=== PATIENT | female | born 1940 | race Caucasian/White ===

== ENCOUNTER 2020-01-09 08:28 | Inpatient (IN) | payer MEDICARE ==
[2020-01-09] MEDS ORDERED: ACETAMINOPHEN TAB 325 MG TAB PO STA (09:07)
--- NOTE | 2020-01-09 09:14 | ED ---
SOB HPI - General Chief Complaint: Shortness of Breath Stated Complaint: SOB, +COVID Time Seen by Provider: 01/09/20 08:44 Source: patient Mode of arrival: wheelchair Limitations: no limitations - History of Present Illness Initial Comments: 79-year-old male presenting today for chief complaint of code positive. On history taking patient appears fatigued she is alert and oriented 4 however is not lethargic but states that she is only here because she tested positive she denies any shortness of breath fevers chest pain and leg swelling she denies any nausea vomiting diarrhea. Patient denies any complaints this time. Patient states she has discontinued her Zaroxolyn for the past few days secondary to "taking so many medications". Patient does have previous history of DVT. Patient was brought in by EMS will obtain further history from family. Patient hypoxic on arrival - Related Data Home Medications Medication Instructions Recorded Confirmed Rivaroxaban [Xarelto] 20 mg PO DAILY 01/09/20 01/09/20 amLODIPine [Norvasc] 5 mg PO DAILY 01/09/20 01/09/20 Allergies Allergy/AdvReac Type Severity Reaction Status Date / Time lisinopril Allergy Swelling Verified 01/09/20 09:44 Review of Systems ROS Statement: Those systems with pertinent positive or pertinent negative responses have been documented in the HPI. ROS Other: All systems not noted in ROS Statement are negative. Past Medical History Past Medical History: Deep Vein Thrombosis (DVT) History of Any Multi-Drug Resistant Organisms: None Reported Past Surgical History: No Surgical Hx Reported Past Psychological History: No Psychological Hx Reported Smoking Status: Never smoker Past Alcohol Use History: None Reported Past Drug Use History: None Reported General Exam - General Exam Comments Initial Comments: General: The patient is awake and alert, in no distress, pleasant Eye: +3 mm pupils are equal, round and reactive to light, extra-ocular movemen ts are intact. No nystagmus. There is normal conjunctiva bilaterally. No signs of icterus. Ears, nose, mouth and throat: There are moist mucous membranes and no oral les ions. Neck: The neck is supple, there is no tenderness or JVD. Cardiovascular: There is a regular rate and rhythm. No murmur, rub or gallop is appreciated. Respiratory: Respirations are mildly-labored, breath sounds are equal. Rhonchi noted throughout, some rales a bases. No wheezes, stridor. Gastrointestinal: Soft, non-distended, non-tender abdomen without masses or organomegaly noted. There is no rebound or guarding present. Musculoskeletal: Normal ROM, no tenderness. Strength 5/5. Sensation intact. Radial pulses equal bilaterally 2+. Neurological: A&O x 3. CN II-XII intact, There are no obvious motor or sensory deficits. Coordination appears grossly intact. Speech is normal. Skin: Skin is warm and dry and no rashes or lesions are noted. Psychiatric: Cooperative, appropriate mood & affect, normal judgment. Limitations: no limitations Course Vital Signs 01/09/20 01/09/20 01/09/20 08:29 09:25 09:31 Temperature 98.8 F 102.1 F H Pulse Rate 82 90 Respiratory 24 20 18 Rate Blood Pressure 136/80 O2 Sat by Pulse 90 L Oximetry 01/09/20 01/09/20 10:16 11:05 Temperature 99.6 F 99.1 F Pulse Rate 68 84 Respiratory 18 18 Rate Blood Pressure 117/69 109/91 O2 Sat by Pulse 93 L 92 L Oximetry Medical Decision Making - Medical Decision Making 79 yo female presenting for cc of covid +. hypoxic on arrival. hx dvt, off her xarelto for 4+ days. Patent has no leg swelling. CTA ordered + for PE without heart stain and ground glass opacities consistent with Covid 19 pneumonia. Patient will be admittd for anticoagulation and close monitoring. Dr. roper agreeable to care plan. Ventricular rate 86 bpm, SD interval 146 small seconds, QRS her station 82 ms, QT/QTC 326/390. Sinus rhythm with a left axis noted. There is a sinus arrhythmia. No ST elevation or depression is appreciated. - Lab Data Result diagrams: 01/09/20 09:15 01/09/20 09:15 Lab Results 01/09/20 01/09/20 01/09/20 Range/Units 09:15 09:15 09:15 WBC 6.9 (3.8-10.6) k/uL RBC 5.03 (3.80-5.40) m/uL Hgb 15.4 (11.4-16.0) gm/dL Hct 45.0 (34.0-46.0) % MCV 89.6 (80.0-100.0) fL MCH 30.6 (25.0-35.0) pg MCHC 34.2 (31.0-37.0) g/dL RDW 12.0 (11.5-15.5) % Plt Count 208 (150-450) k/uL MPV 7.2 Neutrophils % 79 % Lymphocytes % 14 % Monocytes % 5 % Eosinophils % 0 % Basophils % 1 % Neutrophils # 5.5 (1.3-7.7) k/uL Lymphocytes # 1.0 (1.0-4.8) k/uL Monocytes # 0.3 (0-1.0) k/uL Eosinophils # 0.0 (0-0.7) k/uL Basophils # 0.0 (0-0.2) k/uL PT 10.6 (9.0-12.0) sec INR 1.0 (<1.2) APTT 22.3 (22.0-30.0) sec D-Dimer 14.09 H (<0.60) mg/L FEU Sodium 129 L (137-145) mmol/L Potassium 4.2 (3.5-5.1) mmol/L Chloride 99 (98-107) mmol/L Carbon Dioxide 23 (22-30) mmol/L Anion Gap 7 mmol/L BUN 18 H (7-17) mg/dL Creatinine 0.67 (0.52-1.04) mg/dL Est GFR (CKD-EPI)AfAm >90 (>60 ml/min/1.73 sqM) Est GFR (CKD-EPI)NonAf 84 (>60 ml/min/1.73 sqM) Glucose 138 H (74-99) mg/dL Plasma Lactic Acid Jerry (0.7-2.0) mmol/L Calcium 9.1 (8.4-10.2) mg/dL Magnesium 1.7 (1.6-2.3) mg/dL Total Bilirubin 0.9 (0.2-1.3) mg/dL AST 40 H (14-36) U/L ALT 20 (4-34) U/L Alkaline Phosphatase 64 (38-126) U/L Lactate Dehydrogenase 887 H (313-618) U/L Troponin I (0.000-0.034) ng/mL C-Reactive Protein 48.7 H (<10.0) mg/L Total Protein 6.3 (6.3-8.2) g/dL Albumin 3.3 L (3.5-5.0) g/dL 01/09/20 01/09/20 Range/Units 09:15 09:15 WBC (3.8-10.6) k/uL RBC (3.80-5.40) m/uL Hgb (11.4-16.0) gm/dL Hct (34.0-46.0) % MCV (80.0-100.0) fL MCH (25.0-35.0) pg MCHC (31.0-37.0) g/dL RDW (11.5-15.5) % Plt Count (150-450) k/uL MPV Neutrophils % % Lymphocytes % % Monocytes % % Eosinophils % % Basophils % % Neutrophils # (1.3-7.7) k/uL Lymphocytes # (1.0-4.8) k/uL Monocytes # (0-1.0) k/uL Eosinophils # (0-0.7) k/uL Basophils # (0-0.2) k/uL PT (9.0-12.0) sec INR (<1.2) APTT (22.0-30.0) sec D-Dimer (<0.60) mg/L FEU Sodium (137-145) mmol/L Potassium (3.5-5.1) mmol/L Chloride (98-107) mmol/L Carbon Dioxide (22-30) mmol/L Anion Gap mmol/L BUN (7-17) mg/dL Creatinine (0.52-1.04) mg/dL Est GFR (CKD-EPI)AfAm (>60 ml/min/1.73 sqM) Est GFR (CKD-EPI)NonAf (>60 ml/min/1.73 sqM) Glucose (74-99) mg/dL Plasma Lactic Acid Jerry 1.3 (0.7-2.0) mmol/L Calcium (8.4-10.2) mg/dL Magnesium (1.6-2.3) mg/dL Total Bilirubin (0.2-1.3) mg/dL AST (14-36) U/L ALT (4-34) U/L Alkaline Phosphatase (38-126) U/L Lactate Dehydrogenase (313-618) U/L Troponin I <0.012 (0.000-0.034) ng/mL C-Reactive Protein (<10.0) mg/L Total Protein (6.3-8.2) g/dL Albumin (3.5-5.0) g/dL Disposition Clinical Impression: Pulmonary embolism, Lab test positive for detection of COVID-19 virus, Hypoxia, Ground glass opacity present on imaging of lung Disposition: ADMITTED IP TO THIS [facility] Condition: Serious Is patient prescribed a controlled substance at d/c from ED?: No Referrals: Alex Moeller MD [Primary Care Provider] - 1-2 days Time of Disposition: 11:19 Decision to Admit Reason: Admit from EC Decision Date: 01/09/20 Decision Time: 11:19
[2020-01-09] MEDS ORDERED: SODIUM CHLORIDE 0.9% 1,000 ML IV STA (09:23)
[2020-01-09 09:34] LABS: Basophils % (A) 1 %; Eosinophils % (A) 0 %; HGB 15.4 gm/dL (11.4-16.0); Lymphocytes % (A) 14 %; MCH 30.6 pg (25.0-35.0); MCHC 34.2 g/dL (31.0-37.0); MCV 89.6 fL (80.0-100.0); Mean Platelet Volume 7.2; Monocytes # (A) 0.3 k/uL (0-1.0); Monocytes % (A) 5 %; Neutrophils # (A) 5.5 k/uL (1.3-7.7); Neutrophils % (A) 79 %; Platelet Count 208 k/uL (150-450); RBC 5.03 m/uL (3.80-5.40); WBC 6.9 k/uL (3.8-10.6)
--- NOTE | 2020-01-09 09:39 | XR ---
EXAMINATION TYPE: XR chest 1V portable DATE OF EXAM: 01/09/2020 Comparison: 06/06/2013 Clinical History: 79-year-old female with fever, suspected COVID-19 pneumonia Findings: Heart upper limits of normal in size. Leftward patient rotation ultrasound normal cardiac and mediast inal contours. Underlying moderate-sized hernia. Mild hazy density in the periphery of the mid and lo wer lungs. No pleural effusion. Impression: Mild hazy density in the periphery of the mid and lower lungs could be technical from overlying soft tissue density. Follow-up to exclude early atypical pneumonia. Moderate-sized hiatal hernia suggested.
[2020-01-09 09:42] LABS: ALT 20 U/L (4-34); AST 40 U/L (14-36); African American GFR (CKD) >90 (>60 ml/min/1.73 sqM); Albumin 3.3 g/dL (3.5-5.0); Alkaline Phosphatase 64 U/L (38-126); Anion Gap 7 mmol/L; Blood Urea Nitrogen 18 mg/dL (7-17); Calcium 9.1 mg/dL (8.4-10.2); Carbon Dioxide 23 mmol/L (22-30); Chloride 99 mmol/L (98-107); Glucose 138 mg/dL (74-99); LDH 887 U/L (313-618); Magnesium 1.7 mg/dL (1.6-2.3); Non-African American GFR(CKD) 84 (>60 ml/min/1.73 sqM); Potassium 4.2 mmol/L (3.5-5.1); Sodium 129 mmol/L (137-145); Total Bilirubin 0.9 mg/dL (0.2-1.3); Total Protein 6.3 g/dL (6.3-8.2)
[2020-01-09 10:02] LABS: C Reactive Protein 48.7 mg/L (<10.0)
[2020-01-09 10:11] LABS: Partial Thromboplastin Time 22.3 sec (22.0-30.0); Prothrombin Time 10.6 sec (9.0-12.0)
[2020-01-09 10:18] LABS: D-Dimer 14.09 mg/L FEU (<0.60)
[2020-01-09] MEDS: SODIUM CHLORIDE 0.9% 1,000 ML IV SCH ×2 (11:03→19:03)
[2020-01-09] MEDS ORDERED: HEPARIN SODIUM,PORCINE 10,000 UNIT/ML 1 ML VIAL IV ONE (11:17)
[2020-01-09] MEDS ORDERED: NALOXONE 0.4 MG/ML 1 ML VIAL IV PRN (11:19)
[2020-01-09] MEDS: HEPARIN SOD,PORK IN 0.45% NACL 25,000 UNIT in 0.45% NACL 1 250ML.BAG IV SCH (11:25)
--- NOTE | 2020-01-09 11:37 | CT ---
EXAMINATION TYPE: CT chest angio for PE DATE OF EXAM: 01/09/2020 COMPARISON: HISTORY: History of DVT, Covid positive and hypoxia CT DLP: 280.7 mGycm Automated exposure control for dose reduction was used. CONTRAST: CT Chest for pulmonary embolism performed with without and with IV Contrast, patient injected with 10 0 ml mL of Isovue 370. FINDINGS: LUNGS: The lungs are remarkable for bilateral groundglass opacity some of the peripheral There is no pleural effusion or pneumothorax seen. The tracheobronchial tree is patent. MEDIASTINUM: There is abnormal filling defect present within the right pulmonary artery, segmental br anches. Right ventricle appears larger than the left, there may be some slight bowing of the intraven tricular septum. There are no greater than 1 cm hilar or mediastinal lymph nodes. No pericardial e ffusion is seen. AORTA: No additional significant abnormality is seen. OTHER: There is a large hiatal hernia with partial intrathoracic stomach.. IMPRESSION: Pulmonary embolism. There may be a degree of right ventricular strain. Correlate for pneumonia.
[2020-01-09] MEDS: ACETAMINOPHEN TAB 325 MG TAB PO PRN (17:47)
[2020-01-09] MEDS ORDERED: DEXAMETHASONE SOD PHOSPHATE 10 MG/ML 1 ML VIAL IV SCH (18:15)
[2020-01-09] MEDS ORDERED: DEXAMETHASONE SOD PHOSPHATE 4 MG/ML 1 ML VIAL IV SCH (18:15)
--- NOTE | 2020-01-09 18:15 | P.HPIM ---
History of Present Illness H&P Date: 01/09/20 Chief Complaint: Shortness of breath The patient is a 79-year-old female with history of DVT, she is on 02. The patient is a clear historian. She states she was diagnosed as noncardiac but positive because of contact with some individuals were positive. The patient states she was taking azithromycin and was concerned about the interaction with her Subroto so she stopped there is a relative. She presented to the emergency room with generalized fatigue and just not feeling well on in the emergency room patient had a workup that showed evidence of pulmonary embolism. The patient feels that she has not taken her as a route for approximately one week. She could not clearly define when she became ill about tested positive for Covid 19. The patient was febrile hypoxic she was placed on supplemental oxygen she was hospitalized for further workup and management. Review of Systems Complete review of systems was done and negative other than stated above Past Medical History Past Medical History: Deep Vein Thrombosis (DVT) History of Any Multi-Drug Resistant Organisms: None Reported Past Surgical History: No Surgical Hx Reported Past Psychological History: No Psychological Hx Reported Smoking Status: Never smoker Past Alcohol Use History: None Reported Past Drug Use History: None Reported - Past Family History Father Family Medical History: Coronary Artery Disease (CAD) Mother Family Medical History: Cancer Medications and Allergies Home Medications Medication Instructions Recorded Confirmed Type Rivaroxaban [Xarelto] 20 mg PO DAILY 01/09/20 01/09/20 History amLODIPine [Norvasc] 5 mg PO DAILY 01/09/20 01/09/20 History Allergies Allergy/AdvReac Type Severity Reaction Status Date / Time lisinopril Allergy Swelling Verified 01/09/20 09:44 Physical Exam Vitals: Vital Signs Temp Pulse Pulse Resp BP BP Pulse Ox 01/09/20 17:00 100 F H 83 20 184/86 94 L 01/09/20 12:58 98.1 F 72 18 117/70 92 L 01/09/20 12:00 98.1 F 72 18 117/70 92 L 01/09/20 11:05 99.1 F 84 18 109/91 92 L 01/09/20 10:16 99.6 F 68 18 117/69 93 L 01/09/20 09:31 102.1 F H 90 18 01/09/20 09:25 20 01/09/20 08:29 98.8 F 82 24 136/80 90 L Intake and Output 01/09/20 01/09/20 01/09/20 06:59 14:59 22:59 Output Total 400 Balance -400 Output: Urine 400 Other: Voiding Method Toilet # Bowel Movements 1 Weight 66.678 kg 66.678 kg - Constitutional General appearance: no acute distress - EENT Eyes: PERRLA - Respiratory Respiratory: bilateral: rhonchi - Cardiovascular Rhythm: regular - Gastrointestinal General gastrointestinal: normal bowel sounds - Integumentary Integumentary: normal - Neurologic Neurologic: CNII-XII intact - Musculoskeletal Musculoskeletal: strength equal bilaterally - Psychiatric Psychiatric: A&O x's 3, intact judgment & insight Results CBC & Chem 7: 01/09/20 09:15 01/09/20 09:15 Labs: Abnormal Lab Results - Last 24 Hours (Table) 01/09/20 01/09/20 Range/Units 09:15 09:15 D-Dimer 14.09 H (<0.60) mg/L FEU Sodium 129 L (137-145) mmol/L BUN 18 H (7-17) mg/dL Glucose 138 H (74-99) mg/dL AST 40 H (14-36) U/L Lactate Dehydrogenase 887 H (313-618) U/L C-Reactive Protein 48.7 H (<10.0) mg/L Albumin 3.3 L (3.5-5.0) g/dL Thrombosis Risk Factor Assmnt - Choose All That Apply Any of the Below Risk Factors Present?: Yes Each Risk Factor Represents 3 Points: Age 75 years or older, History of DVT/PE Thrombosis Risk Factor Assessment Total Risk Factor Score: 6 Thrombosis Risk Factor Assessment Level: High Risk Assessment and Plan (1) Pulmonary embolism Narrative/Plan: The patient with history of DVT, will check echocardiogram, continue heparin drip patient wasn't Sirota prior to admission admission but stopped because of concerns about interaction between her medications. Current Visit: Yes Status: Acute Code(s): I26.99 - OTHER PULMONARY EMBOLISM WITHOUT ACUTE COR PULMONALE SNOMED Code(s): 51722629 (2) Ground glass opacity present on imaging of lung Narrative/Plan: 19 pneumonia continues steroids, zinc, vitamin C, melatonin, pulmonary consult Current Visit: Yes Status: Acute Code(s): R91.8 - OTHER NONSPECIFIC ABNORMAL FINDING OF LUNG FIELD SNOMED Code(s): 683264588 (3) Lab test positive for detection of COVID-19 virus Narrative/Plan: She is not aware of when she tested positive cervical need respiratory isolation Current Visit: Yes Status: Acute Code(s): U07.1 - COVID-19 SNOMED Code(s): 7347183756281164
[2020-01-09] MEDS ORDERED: DEXAMETHASONE SOD PHOSPHATE 10 MG/ML 1 ML VIAL PO SCH (18:30)
[2020-01-09] MEDS: ZINC SULFATE 220 MG CAP PO SCH (19:02)
[2020-01-09] MEDS: ASCORBIC ACID 500 MG TAB PO SCH (19:02)
[2020-01-09] MEDS: CHOLECALCIFEROL 1,000 UNIT TAB PO SCH (19:02)
[2020-01-09 20:14] LABS: Ferritin 223.3 ng/mL (10.0-291.0)
[2020-01-09] MEDS ORDERED: DEXAMETHASONE SOD PHOSPHATE 4 MG/ML 1 ML VIAL PO SCH (20:30)
[2020-01-09 20:50] LABS: Glucose,Whole Blood 117 mg/dL (75-99)
[2020-01-09] MEDS: MELATONIN 5 MG TABLET PO SCH (21:42)
[2020-01-09] MEDS: dexAMETHasone 2 MG TAB PO SCH (21:42)
[2020-01-10 02:37] LABS: Basophils % (A) 0 %; Eosinophils % (A) 0 %; HCT 44.1 % (34.0-46.0); HGB 14.6 gm/dL (11.4-16.0); Lymphocytes # (A) 0.7 k/uL (1.0-4.8); Lymphocytes % (A) 6 %; MCV 90.9 fL (80.0-100.0); Mean Platelet Volume 7.1; Monocytes # (A) 0.1 k/uL (0-1.0); Monocytes % (A) 1 %; Neutrophils # (A) 10.6 k/uL (1.3-7.7); Neutrophils % (A) 92 %; Platelet Count 212 k/uL (150-450); RBC 4.85 m/uL (3.80-5.40); RDW 12.6 % (11.5-15.5); WBC 11.6 k/uL (3.8-10.6)
[2020-01-10 03:18] LABS: ALT 18 U/L (4-34); AST 40 U/L (14-36); African American GFR (CKD) >90 (>60 ml/min/1.73 sqM); Albumin 2.8 g/dL (3.5-5.0); Alkaline Phosphatase 66 U/L (38-126); Anion Gap 6 mmol/L; Blood Urea Nitrogen 18 mg/dL (7-17); Calcium 8.8 mg/dL (8.4-10.2); Carbon Dioxide 22 mmol/L (22-30); Chloride 106 mmol/L (98-107); Glucose 145 mg/dL (74-99); Non-African American GFR(CKD) 84 (>60 ml/min/1.73 sqM); Potassium 3.2 mmol/L (3.5-5.1); Sodium 134 mmol/L (137-145); Total Bilirubin 0.7 mg/dL (0.2-1.3); Total Protein 5.4 g/dL (6.3-8.2)
[2020-01-10] MEDS: SODIUM CHLORIDE 0.9% 1,000 ML IV SCH (04:38)
[2020-01-10 06:09] LABS: Glucose,Whole Blood 137 mg/dL (75-99)
[2020-01-10] MEDS ORDERED: POTASSIUM CHLORIDE ER 20 MEQ TAB.ER PO STA (08:22)
[2020-01-10] MEDS: CHOLECALCIFEROL 1,000 UNIT TAB PO SCH (08:58)
[2020-01-10] MEDS: amLODIPine 5 MG TAB PO SCH (08:58)
[2020-01-10] MEDS: ASCORBIC ACID 500 MG TAB PO SCH (08:58)
[2020-01-10] MEDS: ZINC SULFATE 220 MG CAP PO SCH (09:00)
[2020-01-10] MEDS ORDERED: POTASSIUM CHLORIDE ER 20 MEQ TAB.ER PO ONE (09:00)
[2020-01-10] MEDS: ACETAMINOPHEN TAB 325 MG TAB PO PRN ×2 (09:04→20:19)
[2020-01-10 09:52] LABS: C Reactive Protein 130.3 mg/L (<10.0)
[2020-01-10 12:07] LABS: Glucose,Whole Blood 136 mg/dL (75-99)
[2020-01-10] MEDS: METOPROLOL TARTRATE 12.5 MG TAB PO SCH ×2 (12:26→20:19)
--- NOTE | 2020-01-10 12:28 | P.PN ---
Subjective Progress Note Date: 01/10/20 Patient is doing fairly well today. She said that her shortness of breath is improving. She denies any palpitation or chest pain. He was noted to be in atrial fibrillation on the monitor this morning which was confirmed by 12-lead EKG. Patient denies having any history of A. fib in the past. Heart rate is relatively well-controlled in the 90s. Objective - Vital Signs Vital signs: Vital Signs Temp 97.9 F 01/10/20 08:00 Pulse 96 01/10/20 08:00 Resp 20 01/10/20 08:00 BP 122/72 01/10/20 08:00 Pulse Ox 91 L 01/10/20 08:00 Intake & Output 01/09/20 01/10/20 01/10/20 18:59 06:59 18:59 Intake Total 300 160.862 180 Output Total 400 Balance -100 160.862 180 Weight 66.678 kg 67.7 kg Intake: Intake, IV Titration 160.862 Amount Heparin Sod,Pork in 0.45% 160.862 NaCl 25,000 unit In 0.45 % NaCl 1 250ml.bag @ 18 UNITS/KG/HR 12.002 mls/hr IV .[id number] [facility] Rx#: [id number] Oral 300 0 180 Output: Urine 400 Other: Voiding Method Toilet Toilet # Voids 1 2 # Bowel Movements 1 1 1 - Exam General: The patient is awake and alert, in no distress Eye: there is normal conjunctiva bilaterally. Neck: The neck is supple, there is no JVD. Cardiovascular: Normal S1-S2, no S3-S4, no murmurs. Respiratory: Lungs clear to auscultation bilaterally Gastrointestinal: Abdomen is soft, nontender Musculoskeletal: There is no pedal edema. Neurological:. Speech is normal. Skin: Skin is warm and dry - Labs CBC & Chem 7: 01/10/20 02:12 01/10/20 02:12 Labs: Abnormal Lab Results - Last 24 Hours (Table) 01/09/20 01/09/20 01/09/20 Range/Units : 18:09 20:46 WBC (3.8-10.6) k/uL Neutrophils # (1.3-7.7) k/uL Lymphocytes # (1.0-4.8) k/uL APTT 107.1 H* (22.0-30.0) sec Sodium (137-145) mmol/L Potassium (3.5-5.1) mmol/L BUN (7-17) mg/dL Glucose (74-99) mg/dL POC Glucose (mg/dL) 117 H (75-99) mg/dL AST (14-36) U/L Lactate Dehydrogenase (313-618) U/L C-Reactive Protein (<10.0) mg/L Total Protein (6.3-8.2) g/dL Albumin (3.5-5.0) g/dL Procalcitonin 0.10 H (0.02-0.09) ng/mL 01/10/20 01/10/20 01/10/20 Range/Units 02:12 02:12 02:12 WBC 11.6 H (3.8-10.6) k/uL Neutrophils # 10.6 H (1.3-7.7) k/uL Lymphocytes # 0.7 L (1.0-4.8) k/uL APTT 68.1 H (22.0-30.0) sec Sodium 134 L (137-145) mmol/L Potassium 3.2 L (3.5-5.1) mmol/L BUN 18 H (7-17) mg/dL Glucose 145 H (74-99) mg/dL POC Glucose (mg/dL) (75-99) mg/dL AST 40 H (14-36) U/L Lactate Dehydrogenase (313-618) U/L C-Reactive Protein (<10.0) mg/L Total Protein 5.4 L (6.3-8.2) g/dL Albumin 2.8 L (3.5-5.0) g/dL Procalcitonin (0.02-0.09) ng/mL 01/10/20 01/10/20 01/10/20 Range/Units 06:07 08:29 08:29 WBC (3.8-10.6) k/uL Neutrophils # (1.3-7.7) k/uL Lymphocytes # (1.0-4.8) k/uL APTT 54.7 H (22.0-30.0) sec Sodium (137-145) mmol/L Potassium (3.5-5.1) mmol/L BUN (7-17) mg/dL Glucose (74-99) mg/dL POC Glucose (mg/dL) 137 H (75-99) mg/dL AST (14-36) U/L Lactate Dehydrogenase 931 H (313-618) U/L C-Reactive Protein 130.3 H (<10.0) mg/L Total Protein (6.3-8.2) g/dL Albumin (3.5-5.0) g/dL Procalcitonin (0.02-0.09) ng/mL 01/10/20 Range/Units 12:05 WBC (3.8-10.6) k/uL Neutrophils # (1.3-7.7) k/uL Lymphocytes # (1.0-4.8) k/uL APTT (22.0-30.0) sec Sodium (137-145) mmol/L Potassium (3.5-5.1) mmol/L BUN (7-17) mg/dL Glucose (74-99) mg/dL POC Glucose (mg/dL) 136 H (75-99) mg/dL AST (14-36) U/L Lactate Dehydrogenase (313-618) U/L C-Reactive Protein (<10.0) mg/L Total Protein (6.3-8.2) g/dL Albumin (3.5-5.0) g/dL Procalcitonin (0.02-0.09) ng/mL Microbiology - Last 24 Hours (Table) 01/09/20 09:15 Blood Culture - Preliminary Blood No Growth after 24 hours Assessment and Plan Assessment: This is a 79-year-old female with complex past medical history noted below who presented to the hospital with generalized fatigue and worsening shortness of breath. Patient was diagnosed with Covid19 I week ago after she was tested approximately 2 weeks ago. She finished azithromycin course at home. Patient was evaluated in the ER and currently admitted to the hospital for further management of medical problems noted below. 1. Pulmonary embolism, with some evidence of right ventricular strain on CT. Echocardiogram ordered. Currently on anticoagulation with IV heparin. 2. Covid19 pneumonia, positive test at an outside facility a week ago. started on dexamethasone 6 mg daily day #04/07. We will continue to monitor inflammatory markers. Pulmonary consulted for further evaluation, appreciate recommendations. Appears to be outside the window for Remdesivir 3. New onset atrial fibrillation, rate controlled. We'll check thyroid function tests in the morning. Consult cardiology for further evaluation. Sta rt low-dose metoprolol 12.5 mg twice daily. Continue control officer. Patient already on anticoagulation secondary to PE. 4. Acute hypoxic respiratory failure secondary to #1 and 2. Bilateral g roundglass opacity most likely secondary to Covid19. Bacterial pneumonia appears to be less likely clinically. Pro-calcitonin only slightly elevated. Currently on 6 L of oxygen by nasal cannula. Wean off O2 as tolerated for O2 sats greater than 90%. 5. Severe sepsis without septic shock, secondary to Covid-19. Lactic acid is normal. Improved with IV fluid hydration. Blood culture negative to date. 6. Hypokalemia, replacement ordered. We will recheck lab work in the morning. 7. 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 Questionable compliance. 8. Essential hypertension: Blood pressure within acceptable range. We will continue to monitor Today, I reviewed her medication list and lab work results. Continue current regimen. Appreciate aerodynamic consultant's recommendations. Repeat lab work in the morning.
--- NOTE | 2020-01-10 14:49 | ECHOF ---
Referral Reason:pulmonary emboli MEASUREMENTS -------- HEIGHT: 162.6 cm WEIGHT: 67.6 kg BP: 122/72 RVIDd: 2.7 cm (< 3.3) IVSd: 1.2 cm (0.6 - 1.1) LVIDd: 3.6 cm (3.9 - 5.3) LVPWd: 1.2 cm (0.6 - 1.1) IVSs: 1.4 cm LVIDs: 2.5 cm LVPWs: 1.4 cm LA Diam: 2.3 cm (2.7 - 3.8) Ao Diam: 3.4 cm (2.0 - 3.7) AV Cusp: 2.2 cm (1.5 - 2.6) MV EXCURSION: 15.098 mm (> 18.000) MV EF SLOPE: 104 mm/s (70 - 150) EPSS: 0.6 cm RAP: 5.00 mmHg RVSP: 19.52 mmHg FINDINGS -------- Atrial fibrillation. This was a technically adequate study. The left ventricular size is normal. There is borderline concentric left ventricular hypertrophy. Overall left ventricular systolic function is normal with, an EF between 60 - 65 %. The right ventricle is normal in size. The left atrium is normal in size. The right atrium is normal in size. Interatrial and interventricular septum intact. There is mild aortic valve sclerosis. Trace amount of aortic regurgitation. Mild mitral annular calcification present. Mild tricuspid regurgitation present. Right ventricular systolic pressure is normal at < 35 mmHg. Trace/mild (physiologic) pulmonic regurgitation. The aortic root size is normal. IVC Not well visulized. There is no pericardial effusion. CONCLUSIONS -------- 1. The left ventricular size is normal. 2. There is borderline concentric left ventricular hypertrophy. 3. Overall left ventricular systolic function is normal with, an EF between 60 - 65 %. 4. There is mild aortic valve sclerosis. 5. Trace amount of aortic regurgitation. 6. Mild mitral annular calcification present. 7. Mild tricuspid regurgitation present. 8. Trace/mild (physiologic) pulmonic regurgitation. 9. There is no pericardial effusion. ASSISTANT WINEMAKER: Shannon Logan, CS
[2020-01-10 16:50] LABS: Glucose,Whole Blood 174 mg/dL (75-99)
--- NOTE | 2020-01-10 17:08 | CONS ---
CONSULTATION PULMONARY/CRITICAL CARE CONSULTATION: DATE OF SERVICE: January 10, 2020 HISTORY OF PRESENT ILLNESS: This is a 79-year-old female who is not a particularly good historian. She apparently tested positive for COVID 19 maybe 11 or 12 days ago or maybe even 2 weeks ago. The patient came into the hospital complaining of being fatigued. She just feels lethargic and not herself. A couple of weeks ago when she tested positive, she apparently received some antibiotics. That was before she knew the results of her test. The results of her tests were not given to her for some time after that. Also at that time, she was on a blood thinner, but stopped taking it because she was concerned about the fact that she was taking too many medications. More recently, her only complaint really is fatigue and just not feeling herself. She really denies any chest pain or chest discomfort. She denies any shortness of breath, cough, wheezing, or phlegm production. She also denies any nausea, vomiting, diarrhea, or abdominal pain as well as any genitourinary complaints. It appears that she has not been particularly compliant with her medications. She does have a previous history of a DVT. She has been on a blood thinner now for 8 or 9 years. I can only suspect that maybe she was told at that time she had a hypercoagulable state. She does not remember that. She sees a family doctor at [facility]. Currently, she is feeling reasonably well. Interestingly, going back to the day of his admission, her saturations have been borderline low anywhere from 90 as a low up to 94% as the high. HOME MEDICATIONS: Include Xarelto for which she has been taking 8 or 9 years and amlodipine. ALLERGIES: LISINOPRIL. MEDICAL HISTORY: Hypertension and deep vein thrombosis. SURGICAL HISTORY: Unremarkable. SOCIAL HISTORY: Negative for tobacco, alcohol or illicit drug use. FAMILY HISTORY: Noncontributory. REVIEW OF SYSTEMS: CONSTITUTIONAL weakness, fatigue. NEUROLOGIC negative. HEENT negative. CARDIOVASCULAR negative. PULMONARY negative. GI negative. negative. RHEUMATOLOGIC negative. IMMUNOLOGIC negative. ENDOCRINOLOGIC negative. DERMATOLOGIC negative. PHYSICAL EXAMINATION: VITAL SIGNS: Current vital signs include temperature 97.5, heart rate 93, respiratory rate 20, blood pressure 108/69 mean 82 and saturations are 92% on nasal O2. Her T-max was 102.1. That was on the 13. GENERAL: She appears in no acute distress. She is wearing a mask and nasal prongs. NECK: Supple. Full range of motion. No adenopathy. Neck veins are flat. CARDIOVASCULAR: Examination reveals regular rhythm and rate. Heart rate in the high 80s to low 90s. S1, S2 normal. Heart sounds are distant. LUNGS: Reveal mostly clear breath sounds. A few scattered rhonchi. No wheezes or crackles. ABDOMEN: Soft. Bowel sounds are heard. EXTREMITIES are intact. No edema. SKIN without rash. NEUROLOGIC: Examination is nonfocal. LABS: Reviewed. White count 11.6, hemoglobin 14.6, hematocrit 44.1, platelet count 312,000. PT 10.6, INR 1.0, PTT is 107.1. D-dimer was elevated at 14.09. Sodium 134, potassium 6.2, chloride 106, CO2 22, anion gap is 6, BUN and creatinine 8 and 0.68. LDH is 931. C-reactive protein is 130.3, N-terminal proBNP 2150, procalcitonin 0.10. Microbiologic studies are negative. IMAGING PROCEDURE: A chest x-ray done on the shows mild haziness over the mid and lower lung phillips, which could relate to attentional abnormality suspected overlying soft tissue. The patient had a followup CT angiogram which showed pulmonary embolism noted in the right pulmonary artery. In addition, there may be a degree of right ventricular strain. There also may be some pneumonia. There are ground-glass opacities in the periphery of the lungs. Medications reviewed. Currently, the patient is on Tylenol, amlodipine, ascorbic acid, vitamin D3, Decadron, IV heparin, melatonin, Narcan and zinc. ASSESSMENT: 1. Low saturations and mild shortness of breath, likely multifactorial, secondary to right-sided pulmonary embolism and possibly mild Covid pneumonia/pneumonitis. 2. History of remote deep vein thrombosis, with 8 or 9 years of Xarelto therapy, rule out a primary hypercoagulable state. 3. Hypertension. PLAN: The patient to remain on her current medications. Those are appropriate. I will add albuterol inhaler. Additional recommendations and suggestions are forthcoming. Should observe the patient closely for further deterioration. She did stop her Xarelto for a period of time a couple weeks back when she was not feeling well. That may be the impetus for the pulmonary embolism. Additional recommendations and suggestions are forthcoming. I can only suspect that she has been on Xarelto for so many years because she was diagnosed with a primary hypercoagulable state when she was initially diagnosed with DVT a number of years back. JANES / DARRICKN: [id number] / MTDD
[2020-01-10 18:32] LABS: Ferritin 298.5 ng/mL (10.0-291.0)
[2020-01-10] MEDS: HEPARIN SOD,PORK IN 0.45% NACL 25,000 UNIT in 0.45% NACL 1 250ML.BAG IV SCH (19:54)
[2020-01-10] MEDS: MELATONIN 5 MG TABLET PO SCH (20:19)
[2020-01-10] MEDS: dexAMETHasone 2 MG TAB PO SCH (20:19)
[2020-01-10 20:46] LABS: Glucose,Whole Blood 172 mg/dL (75-99)
--- NOTE | 2020-01-10 21:08 | P.EN ---
patient went into afib with RVR , confirmed on monitor and storage bin tender heart rate 120- 150s , blood pressure stable , oxygen improved with supplemental oxygen patient on blood thinner for PE patient admitted for covid pneumonitis check EKG cardio consult start on cardizem drip
[2020-01-10] MEDS ORDERED: DILTIAZEM 125 MG in SODIUM CHLORIDE 0.9% 100 ML IV SCH ×5 (21:15→21:30)
[2020-01-10] MEDS ORDERED: DILTIAZEM 5 MG/ML 5 ML VIAL IVP ONE (21:15)
[2020-01-10] MEDS ORDERED: DILTIAZEM DRIP BOLUS FROM BAG 1 MG SOLN IV ONE (21:18)
[2020-01-11 06:46] LABS: Glucose,Whole Blood 154 mg/dL (75-99)
[2020-01-11] MEDS: HEPARIN SOD,PORK IN 0.45% NACL 25,000 UNIT in 0.45% NACL 1 250ML.BAG IV SCH (06:57)
--- NOTE | 2020-01-11 08:00 | XR ---
EXAMINATION TYPE: XR chest 1V portable DATE OF EXAM: 01/11/2020 HISTORY: Shortness of breath. COMPARISON: 01/09/2020 TECHNIQUE: Single view of the chest is submitted. FINDINGS: Demonstrated are scattered senescent parenchymal change. Interval development of pneumonic infiltrate throughout the right lung. Mild groundglass infiltrate l eft upper lobe suggested. The heart is stable. Hilar and mediastinal structures are within normal limits. Degenerative changes are seen of the dorsal spine. IMPRESSION: 1. Interval development of pneumonic infiltrate throughout the right lung. Mild groundglass infiltra te left upper lobe suggested.
[2020-01-11 08:33] LABS: Basophils # (A) 0.1 k/uL (0-0.2); Basophils % (A) 0 %; Eosinophils % (A) 0 %; HCT 46.8 % (34.0-46.0); HGB 15.7 gm/dL (11.4-16.0); Lymphocytes # (A) 0.9 k/uL (1.0-4.8); Lymphocytes % (A) 5 %; MCH 30.8 pg (25.0-35.0); MCHC 33.6 g/dL (31.0-37.0); MCV 91.7 fL (80.0-100.0); Mean Platelet Volume 7.9; Monocytes # (A) 0.4 k/uL (0-1.0); Monocytes % (A) 2 %; Neutrophils # (A) 16.7 k/uL (1.3-7.7); Neutrophils % (A) 92 %; Platelet Count 277 k/uL (150-450); RDW 12.3 % (11.5-15.5); WBC 18.2 k/uL (3.8-10.6)
[2020-01-11] MEDS: ASCORBIC ACID 500 MG TAB PO SCH (08:49)
[2020-01-11] MEDS: METOPROLOL TARTRATE 12.5 MG TAB PO SCH (08:49)
[2020-01-11] MEDS: ZINC SULFATE 220 MG CAP PO SCH (08:49)
[2020-01-11] MEDS: amLODIPine 5 MG TAB PO SCH (08:49)
[2020-01-11] MEDS: CHOLECALCIFEROL 1,000 UNIT TAB PO SCH (08:49)
[2020-01-11 08:53] LABS: African American GFR (CKD) >90 (>60 ml/min/1.73 sqM); Anion Gap 5 mmol/L; Blood Urea Nitrogen 32 mg/dL (7-17); Calcium 9.4 mg/dL (8.4-10.2); Carbon Dioxide 22 mmol/L (22-30); Chloride 107 mmol/L (98-107); Glucose 197 mg/dL (74-99); Magnesium 1.9 mg/dL (1.6-2.3); Non-African American GFR(CKD) 85 (>60 ml/min/1.73 sqM); Potassium 4.6 mmol/L (3.5-5.1); Sodium 134 mmol/L (137-145)
[2020-01-11] MEDS: HEPARIN SODIUM,PORCINE 5,000 UNIT/ML 1 ML VIAL IV PRN ×2 (11:00→17:55)
[2020-01-11 11:31] LABS: Glucose,Whole Blood 160 mg/dL (75-99)
--- NOTE | 2020-01-11 12:14 | P.CRDCN ---
History of Present Illness Consult date: 01/11/20 Consult reason: atrial fibrillation (Atrial fibrillation) History of present illness: This is a 79-year-old female who tested positive for: 19 approximately 10 or 11 days ago, came to the hospital with symptoms of fatigue. According to the patient she's been quite sleepy, lethargic, and has had no energy. As an outpatient she did receive some antibiotics, before the patient even new the results of her testing. She was also on a blood thinner at that time because of the history of a DVT, she stopped taking that because she felt she was taking too many medications. Patient denies having any chest discomfort, she does complain of feeling short of breath, has a cough. Some of her history is difficult to obtain, it seems as though overall she is alert and oriented but is somewhat foggy about her history. She does have a history of hypertension. A cardiology consultation has been requested because the patient went into atrial fibrillation with a rapid ventricular response. This morning she continues to be in atrial fibrillation, her rate is under adequate control. Blood pressure 137/74, heart rate 102, 94% on 15 L high flow. White blood cell count 18.2, hemoglobin 15.7, platelet count 277. Sodium 134, potassium 4.6, BUN 32, creatinine 0.6. Mag 1.9. TSH 1.4. The patient is currently on IV heparin, as well as IV Cardizem drip. She had been taking Xarelto previously for her DVT. Her heart rate at present is around 102. An echocardiogram with Doppler study was performed which revealed a normal left ventricular systolic function. Past Medical History Past Medical History: Deep Vein Thrombosis (DVT) History of Any Multi-Drug Resistant Organisms: None Reported Past Surgical History: No Surgical Hx Reported Past Psychological History: No Psychological Hx Reported Smoking Status: Never smoker Past Alcohol Use History: None Reported Past Drug Use History: None Reported - Past Family History Father Family Medical History: Coronary Artery Disease (CAD) Mother Family Medical History: Cancer Medications and Allergies Home Medications Medication Instructions Recorded Confirmed Type Rivaroxaban [Xarelto] 20 mg PO DAILY 01/09/20 01/09/20 History amLODIPine [Norvasc] 5 mg PO DAILY 01/09/20 01/09/20 History Allergies Allergy/AdvReac Type Severity Reaction Status Date / Time lisinopril Allergy Swelling Verified 01/09/20 09:44 Physical Exam Vitals: Vital Signs Temp Pulse Resp BP Pulse Ox 01/11/20 11:49 98.6 F 102 H 20 137/74 94 L 01/11/20 08:00 98.2 F 112 H 20 131/68 94 L 01/11/20 04:00 98.3 F 107 H 21 118/79 93 L 01/10/20 23:37 98.4 F 97 21 109/72 94 L 01/10/20 20:00 98.2 F 91 20 131/72 91 L 01/10/20 16:09 97.9 F 90 20 110/72 90 L 01/10/20 12:00 97.5 F L 93 20 109/69 92 L Intake and Output 01/10/20 01/11/20 01/11/20 22:59 06:59 14:59 Intake Total 273.95 Output Total 200 Balance -200 273.95 Intake: Intake, IV Titration 33.95 Amount Heparin Sod,Pork in 0.45% 33.95 NaCl 25,000 unit In 0.45 % NaCl 1 250ml.bag @ 18 UNITS/KG/HR 12.002 mls/hr IV .[id number] [facility] Rx#: [id number] Oral 240 Output: Urine 200 Other: Voiding Method Toilet # Voids 1 1 1 # Bowel Movements 1 1 Weight 73.5 kg PHYSICAL EXAMINATION: GENERAL: 79-year-old female, in mild respiratory distress at the time of my examination HEENT: Head is atraumatic, normocephalic. Pupils equal, round. Sclera anicteric. Conjunctiva are clear. Mucous membranes of the mouth are moist. Neck is supple. There is no elevated jugular venous pressure. No carotid bruit is heard. HEART EXAMINATION: Heart S1-S2 irregularly irregular CHEST EXAMINATION: Lungs reveal decreased air exchange with scattered coarse rhonchi throughout ABDOMEN: Soft, nontender. Bowel sounds are heard. No organomegaly noted. EXTREMITIES: 2+ peripheral pulses with no evidence of peripheral edema and no calf tenderness noted. NEUROLOGIC patient is awake, alert and oriented 3 . Results 01/11/20 07:59 01/11/20 07:59 Coagulation 01/11/20 Range/Units 07:59 APTT 27.7 (22.0-30.0) sec CBC 01/11/20 Range/Units 07:59 WBC 18.2 H (3.8-10.6) k/uL RBC 5.10 (3.80-5.40) m/uL Hgb 15.7 (11.4-16.0) gm/dL Hct 46.8 H (34.0-46.0) % Plt Count 277 (150-450) k/uL Comprehensive Metabolic Panel 01/11/20 Range/Units 07:59 Sodium 134 L (137-145) mmol/L Potassium 4.6 (3.5-5.1) mmol/L Chloride 107 (98-107) mmol/L Carbon Dioxide 22 (22-30) mmol/L BUN 32 H (7-17) mg/dL Creatinine 0.65 (0.52-1.04) mg/dL Glucose 197 H (74-99) mg/dL Calcium 9.4 (8.4-10.2) mg/dL Current Medications Generic Name Dose Route Start Last Admin Trade Name Freq PRN Reason Stop Dose Admin Acetaminophen 650 mg 01/09/20 17:23 01/10/20 20:19 Acetaminophen Tab 325 Mg Tab PO 650 mg Q6HR PRN Administration Fever and/ or Pain Albuterol Sulfate 2 puff 01/10/20 15:39 Albuterol Hfa Inhaler INHALATION RT-QID PRN Shortness Of Breath Or Wheezing Amlodipine Besylate 5 mg 01/10/20 09:00 01/11/20 08:49 Amlodipine 5 Mg Tab PO 5 mg DAILY ANSELMO Administration Ascorbic Acid 1,000 mg 01/09/20 18:15 01/11/20 08:49 Ascorbic Acid 500 Mg Tab PO 1,000 mg DAILY ANSELMO Administration Cholecalciferol 1,000 unit 01/09/20 18:15 01/11/20 08:49 Cholecalciferol 1,000 Unit Tab PO 1,000 unit DAILY ANSELMO Administration Dexamethasone 6 mg 01/09/20 21:00 01/10/20 20:19 Dexamethasone 2 Mg Tab PO 6 mg Q24H ANSELMO Administration Heparin Sodium (Porcine) 0 unit 01/09/20 11:17 01/11/20 11:00 Heparin Sodium,Porcine 5,000 Unit/Ml 1 Ml Vial IV 4,000 unit PER PROTOCOL PRN Administration Low PTT Protocol Heparin Sodium/Sodium Chloride 250 mls @ 12.002 mls/hr 01/09/20 11:30 01/11/20 10:52 25,000 unit/ Sodium Chloride IV 17 units/kg/hr .[id number] ANSLEMO 11.335 mls/hr Titration Protocol 18 UNITS/KG/HR Diltiazem HCl 125 mg/ Sodium 125 mls @ 5 mls/hr 01/10/20 21:30 01/10/20 22:37 Chloride IV 5 mg/hr .Q24H ANSELMO 5 mls/hr Administration 5 MG/HR Melatonin 5 mg 01/09/20 21:00 01/10/20 20:19 Melatonin 5 Mg Tablet PO 5 mg HS ANSELMO Administration Metoprolol Tartrate 12.5 mg 01/10/20 12:30 01/11/20 08:49 Metoprolol Tartrate 12.5 Mg Tab PO 12.5 mg BID ANSELMO Administration Naloxone HCl 0.2 mg 01/09/20 11:19 Naloxone 0.4 Mg/Ml 1 Ml Vial IV Q2M PRN Opioid Reversal Zinc Sulfate 220 mg 01/09/20 18:15 01/11/20 08:49 Zinc Sulfate 220 Mg Cap PO 220 mg DAILY ANSELMO Administration Intake and Output 01/10/20 01/11/20 01/11/20 22:59 06:59 14:59 Intake Total 273.95 Output Total 200 Balance -200 273.95 Intake: Intake, IV Titration 33.95 Amount Heparin Sod,Pork in 0.45% 33.95 NaCl 25,000 unit In 0.45 % NaCl 1 250ml.bag @ 18 UNITS/KG/HR 12.002 mls/hr IV .[id number] [facility] Rx#: [id number] Oral 240 Output: Urine 200 Other: Voiding Method Toilet # Voids 1 1 1 # Bowel Movements 1 1 Weight 73.5 kg 01/11/20 07:59 01/11/20 07:59 EKG Interpretations (text) Initial EKG on presentation here showed a normal sinus rhythm with occasional PACs, subsequent EKG showed atrial fibrillation with rapid ventricular response. Assessment and Plan Plan: Assessment and plan #1 shortness of breath, low oxygen saturations, evidence of pulmonary embolism and likely Covid pneumonia #2 history of DVT, patient has not been taking Xarelto at home #3 hypertension #4 atrial fibrillation with rapid ventricular response, paroxysmal, new onset for the patient. Plan Echocardiogram with Doppler study revealed an ejection fraction of 60-65%. We will increase the metoprolol to 25 mg one tablet by mouth twice a day, discontinue IV Cardizem, continue IV heparin for 24 hours, resume the patient's xarelto from tomorrow. DNP note has been reviewed, I agree with a documented findings and plan of care. Patient was seen and examined.
--- NOTE | 2020-01-11 12:40 | P.PN ---
Subjective Progress Note Date: 01/11/20 Patient went into A. fib with RVR last night requiring IV Cardizem drip. This was discontinued this morning. Heart rate well controlled this morning. Patient denies significant shortness of breath. Her oxygen requirement increased and currently she is on 15 L of oxygen via nasal cannula. Objective - Vital Signs Vital signs: Vital Signs Temp 98.6 F 01/11/20 11:49 Pulse 102 H 01/11/20 11:49 Resp 20 01/11/20 11:49 BP 137/74 01/11/20 11:49 Pulse Ox 94 L 01/11/20 11:49 Intake & Output 01/10/20 01/11/20 01/11/20 18:59 06:59 18:59 Intake Total 509.138 273.95 Output Total 0 200 Balance 509.138 -200 273.95 Weight 67.7 kg 73.5 kg Intake: Intake, IV Titration 89.138 33.95 Amount Heparin Sod,Pork in 0.45% 89.138 33.95 NaCl 25,000 unit In 0.45 % NaCl 1 250ml.bag @ 18 UNITS/KG/HR 12.002 mls/hr IV .[id number] [facility] Rx#: [id number] Oral 420 240 Output: Urine 0 200 Stool 0 Other: Voiding Method Toilet # Voids 1 1 1 # Bowel Movements 1 1 - Exam General: The patient is awake and alert, in no distress Eye: there is normal conjunctiva bilaterally. Neck: The neck is supple, there is no JVD. Cardiovascular: Normal S1-S2, no S3-S4, no murmurs. Respiratory: Lungs with scattered crackles and rhonchi Gastrointestinal: Abdomen is soft, nontender Musculoskeletal: There is no pedal edema. Neurological:. Speech is normal. Skin: Skin is warm and dry - Labs CBC & Chem 7: 01/11/20 07:59 01/11/20 07:59 Labs: Abnormal Lab Results - Last 24 Hours (Table) 01/10/20 01/10/20 01/10/20 Range/Units 08:29 16:48 20:32 WBC (3.8-10.6) k/uL Hct (34.0-46.0) % Neutrophils # (1.3-7.7) k/uL Lymphocytes # (1.0-4.8) k/uL Sodium (137-145) mmol/L BUN (7-17) mg/dL Glucose (74-99) mg/dL POC Glucose (mg/dL) 174 H 172 H (75-99) mg/dL Ferritin 298.5 H (10.0-291.0) ng/mL 01/11/20 01/11/20 01/11/20 Range/Units 06:44 07:59 07:59 WBC 18.2 H (3.8-10.6) k/uL Hct 46.8 H (34.0-46.0) % Neutrophils # 16.7 H (1.3-7.7) k/uL Lymphocytes # 0.9 L (1.0-4.8) k/uL Sodium 134 L (137-145) mmol/L BUN 32 H (7-17) mg/dL Glucose 197 H (74-99) mg/dL POC Glucose (mg/dL) 154 H (75-99) mg/dL Ferritin (10.0-291.0) ng/mL 01/11/20 Range/Units 11:29 WBC (3.8-10.6) k/uL Hct (34.0-46.0) % Neutrophils # (1.3-7.7) k/uL Lymphocytes # (1.0-4.8) k/uL Sodium (137-145) mmol/L BUN (7-17) mg/dL Glucose (74-99) mg/dL POC Glucose (mg/dL) 160 H (75-99) mg/dL Ferritin (10.0-291.0) ng/mL Microbiology - Last 24 Hours (Table) 01/09/20 09:15 Blood Culture - Preliminary Blood No Growth after 48 hours Assessment and Plan Assessment: This is a 79-year-old female with complex past medical history noted below who presented to the hospital with generalized fatigue and worsening shortness of breath. Patient was diagnosed with Covid19 I week ago prior to her presentation after she was tested approximately 2 weeks ago. She finished azithromycin course at home. Patient was evaluated in the ER and currently admitted to the hospital for further management of medical problems noted below. 1. Pulmonary embolism: Echocardiogram showed preserved EF with no evidence of right ventricular strain. Currently on anticoagulation with IV heparin. 2. Covid19 pneumonia, positive test at an outside facility a week ago. started on dexamethasone 6 mg daily day #05/05. We will continue to monitor inflammatory markers. Pulmonary consulted for further evaluation, appreciate recommendations. Appears to be outside the window for Remdesivir. Continue zinc, melatonin, and vitamin C daily 3. New onset atrial fibrillation, rate controlled. We'll check thyroid function tests in the morning. Consult cardiology for further evaluation. Started metoprolol 25 mg twice daily. Continue cardiac monitor. Patient already on anticoagulation secondary to PE. 4. Acute hypoxic respiratory failure secondary to #1 and 2. Bilateral gr oundglass opacity most likely secondary to Covid19. Bacterial pneumonia appears to be less likely clinically. Pro-calcitonin only slightly elevated. Currently on 15 L of oxygen by nasal cannula. Wean off O2 as tolerated for O2 sats greater than 90%. 5. Severe sepsis without septic shock, secondary to Covid-19. Lactic acid is normal. Improved with IV fluid hydration. Blood culture negative to date. 6. Hypokalemia, replaced 7. 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 Questionable compliance. 8. Essential hypertension: Blood pressure within acceptable range. We will continue to monitor 9. CODE STATUS: Patient would like to be full code Today, I reviewed her medication list and lab work results. Continue current regimen. Appreciate regional sales consultant's recommendations. Repeat lab work and chest x- ray in the morning.
[2020-01-11] MEDS: ACETAMINOPHEN TAB 325 MG TAB PO PRN (15:32)
[2020-01-11 17:01] LABS: Glucose,Whole Blood 141 mg/dL (75-99)
--- NOTE | 2020-01-11 17:09 | P.PN ---
Subjective Progress Note Date: 01/11/20 Principal diagnosis: CoVID pneumonitis The patient is seen today 01/11/2020 on the selective care unit. She was admitted on 01/09/2020 with progressive weakness and fatigue. She had tested positive for CoVID 19 almost 2 weeks prior to her arrival. The patient does have a history of a DVT of present 8 or 9 years ago and states she had been on blood thinners since that time. Recently when she started not feeling good she quit taking her medications. She presented here with plans of weakness fatigue and shortness of breath. A CT angiogram was positive for pulmonary embolism. There was also noted bilateral groundglass opacities. We are consulted for the same. She was seen yesterday in consultation. She is on 15 L high flow nasal cannula. Chest x-ray shows interval development of pneumonic infiltrate throughout the right lung. Mild groundglass infiltrates in the left upper lobe. She also developed atrial fibrillation with a rapid ventricular response last e vening. She is continued on her heparin drip. Her rate is better controlled today. She is currently afebrile. Blood culture reveals no growth to date. WBC 18.2. Hemoglobin 15.7. Lymphocytes 0.9. Sodium 134. Potassium 4.6. Creatinine 0.65. TSH 1.41. Pro-calcitonin 0.10. She is continued on dexamethasone, vitamin C, vitamin D, melatonin, zinc. Objective - Vital Signs Vital signs: Vital Signs Temp 98.9 F 01/11/20 15:40 Pulse 103 H 01/11/20 15:40 Resp 24 01/11/20 15:40 BP 130/67 01/11/20 15:40 Pulse Ox 92 L 01/11/20 15:40 Intake & Output 01/10/20 01/11/20 01/11/20 18:59 06:59 18:59 Intake Total 509.138 513.95 Output Total 0 200 301 Balance 509.138 -200 212.95 Weight 67.7 kg 73.5 kg Intake: Intake, IV Titration 89.138 33.95 Amount Heparin Sod,Pork in 0.45% 89.138 33.95 NaCl 25,000 unit In 0.45 % NaCl 1 250ml.bag @ 18 UNITS/KG/HR 12.002 mls/hr IV .[id number] [facility] Rx#: [id number] Oral 420 480 Output: Urine 0 200 300 Stool 0 1 Other: Voiding Method Toilet # Voids 1 1 1 # Bowel Movements 1 1 - Exam GENERAL EXAM: Alert, very pleasant 79-year-old female patient on 15 L high flow nasal cannula, O2 saturation 92% comfortable in no apparent distress. HEAD: Normocephalic. EYES: Normal reaction of pupils, equal size. NOSE: Clear with pink turbinates. THROAT: No erythema or exudates. NECK: No masses, no JVD. CHEST: No chest wall deformity. LUNGS: Equal air entry with scattered rhonchi. CVS: S1 and S2 normal with no audible murmur, irregular rhythm. ABDOMEN: No hepatosplenomegaly, normal bowel sounds, no guarding or rigidity. SPINE: No scoliosis or deformity SKIN: No rashes CENTRAL NERVOUS SYSTEM: No focal deficits, tone is normal in all 4 extremities. EXTREMITIES: There is no peripheral edema. No clubbing, no cyanosis. Peripheral pulses are intact. - Labs CBC & Chem 7: 01/11/20 07:59 01/11/20 07:59 Labs: Abnormal Lab Results - Last 24 Hours (Table) 01/10/20 01/10/20 01/11/20 Range/Units 08:29 20:32 06:44 WBC (3.8-10.6) k/uL Hct (34.0-46.0) % Neutrophils # (1.3-7.7) k/uL Lymphocytes # (1.0-4.8) k/uL Sodium (137-145) mmol/L BUN (7-17) mg/dL Glucose (74-99) mg/dL POC Glucose (mg/dL) 172 H 154 H (75-99) mg/dL Ferritin 298.5 H (10.0-291.0) ng/mL 01/11/20 01/11/20 01/11/20 Range/Units 07:59 07:59 11:29 WBC 18.2 H (3.8-10.6) k/uL Hct 46.8 H (34.0-46.0) % Neutrophils # 16.7 H (1.3-7.7) k/uL Lymphocytes # 0.9 L (1.0-4.8) k/uL Sodium 134 L (137-145) mmol/L BUN 32 H (7-17) mg/dL Glucose 197 H (74-99) mg/dL POC Glucose (mg/dL) 160 H (75-99) mg/dL Ferritin (10.0-291.0) ng/mL Microbiology - Last 24 Hours (Table) 01/09/20 09:15 Blood Culture - Preliminary Blood No Growth after 48 hours Assessment and Plan Assessment: 1 Acute hypoxemic respiratory failure secondary to right-sided pulmonary embolism, CoVID 19 pneumonia/pneumonitis 2 History of remote DVT with 8 or 9 years of Xarelto therapy 3 New-onset atrial fibrillation with a rapid ventricular response, currently on a heparin drip 4 History of hypertension 5 Poor historian Plan: The patient was seen and evaluated by Dr. Champion The patient is feeling better today compared to yesterday X-ray continues to show evidence of Covid pneumonitis Symptoms started 2 weeks ago, no Remdesivir initiated Continue dexamethasone, vitamins, Pepcid, melatonin and zinc Titrate down the FiO2 as tolerated We will continue to follow I, the cosigning physician, performed a history & physical examination of the patient. Lungs sounds with scattered rhonchi. Maintaining good O2 saturations in the 90s on 15 L high flow nasal cannula. I discussed the assessment and plan of care with my nurse practitioner, Rosi Quinones. I attest to the above note as dictated by her.
[2020-01-11 20:34] LABS: Glucose,Whole Blood 163 mg/dL (75-99)
[2020-01-11] MEDS: dexAMETHasone 2 MG TAB PO SCH (21:09)
[2020-01-11] MEDS: MELATONIN 5 MG TABLET PO SCH (21:09)
[2020-01-11] MEDS: METOPROLOL TARTRATE 25 MG TAB PO SCH (21:09)
[2020-01-12] MEDS: ACETAMINOPHEN TAB 325 MG TAB PO PRN ×2 (01:20→20:20)
[2020-01-12] MEDS: HEPARIN SOD,PORK IN 0.45% NACL 25,000 UNIT in 0.45% NACL 1 250ML.BAG IV SCH ×2 (04:54→20:20)
[2020-01-12] MEDS ORDERED: FUROSEMIDE 10 MG/ML 4 ML VIAL ONE (05:30)
[2020-01-12 07:22] LABS: Glucose,Whole Blood 155 mg/dL (75-99)
[2020-01-12 08:25] LABS: Basophils # (A) 0.1 k/uL (0-0.2); Basophils % (A) 1 %; Eosinophils % (A) 0 %; HCT 49.4 % (34.0-46.0); HGB 16.3 gm/dL (11.4-16.0); Lymphocytes # (A) 0.9 k/uL (1.0-4.8); Lymphocytes % (A) 7 %; MCHC 32.9 g/dL (31.0-37.0); MCV 94.2 fL (80.0-100.0); Mean Platelet Volume 7.5; Monocytes # (A) 0.3 k/uL (0-1.0); Monocytes % (A) 2 %; Neutrophils # (A) 10.8 k/uL (1.3-7.7); Neutrophils % (A) 88 %; Platelet Count 344 k/uL (150-450); RBC 5.24 m/uL (3.80-5.40); RDW 12.4 % (11.5-15.5); WBC 12.3 k/uL (3.8-10.6)
[2020-01-12 08:39] LABS: African American GFR (CKD) >90 (>60 ml/min/1.73 sqM); Anion Gap 7 mmol/L; Blood Urea Nitrogen 42 mg/dL (7-17); Calcium 9.5 mg/dL (8.4-10.2); Carbon Dioxide 22 mmol/L (22-30); Chloride 107 mmol/L (98-107); Glucose 191 mg/dL (74-99); Non-African American GFR(CKD) 84 (>60 ml/min/1.73 sqM); Potassium 4.8 mmol/L (3.5-5.1); Sodium 136 mmol/L (137-145)
[2020-01-12] MEDS: ALBUTEROL HFA INHALER INHALATION PRN ×2 (09:04→12:09)
[2020-01-12] MEDS: ASCORBIC ACID 500 MG TAB PO SCH (09:36)
[2020-01-12] MEDS: CHOLECALCIFEROL 1,000 UNIT TAB PO SCH (09:36)
[2020-01-12] MEDS: amLODIPine 5 MG TAB PO SCH (09:36)
[2020-01-12] MEDS: METOPROLOL TARTRATE 25 MG TAB PO SCH ×2 (09:36→20:19)
[2020-01-12] MEDS: ZINC SULFATE 220 MG CAP PO SCH (09:36)
[2020-01-12] MEDS: FAMOTIDINE 20 MG TAB PO SCH (09:36)
[2020-01-12 11:49] LABS: Glucose,Whole Blood 258 mg/dL (75-99)
--- NOTE | 2020-01-12 12:17 | XR ---
EXAMINATION TYPE: XR chest 1V DATE OF EXAM: 01/12/2020 COMPARISON: 01/11/2020 HISTORY: Cough, shortness of breath TECHNIQUE: Single frontal view of the chest is obtained. FINDINGS: Patchy bilateral infiltrates greater on the right are stable. No pleural effusion or pneum othorax. Heart size prominent. Arthropathy of the shoulders. IMPRESSION: Stable bilateral patchy infiltrate correlate for pneumonia.
--- NOTE | 2020-01-12 12:41 | P.PN ---
Subjective Progress Note Date: 01/12/20 HISTORY OF PRESENT ILLNESS: Patient seen and examined this morning at the bedside. She remains on Airvo. She denies any shortness of breath. She denies chest pain or pressure. She remains in atrial fibrillation. She remains on heparin drip as well. Echocardiogram revealed EF 60-65%. PHYSICAL EXAM: VITAL SIGNS: Reviewed. GENERAL: Well-developed in no acute distress. NECK: Supple. No JVD or thyromegaly LUNGS: Respirations even and unlabored. Lungs diminished with scattered rhonchi throughout. HEART: Irregular rate and rhythm. S1 and S2 heard. EXTREMITIES: Normal range of motion. No clubbing or cyanosis. Peripheral pulses intact. No lower extremity edema ASSESSMENT: Acute hypoxic respiratory failure Right-sided pulmonary embolism Covid 19 pneumonia/pneumonitis New onset paroxysmal atrial fibrillation with RVR Hypertension History of DVT, patient prescribed Xarelto an outpatient basis but was not taking medication PLAN: Resume patient's Xarelto this evening. Discontinue IV heparin after Xarelto has been administered Continue metoprolol Nurse practitioner note has been reviewed by physician. Signing provider agrees with the documented findings, assessment, and plan of care. Objective - Vital Signs Vital signs: Vital Signs Temp 97.8 F 01/12/20 09:54 Pulse 70 01/12/20 09:54 Resp 22 01/12/20 09:54 BP 121/76 01/12/20 09:54 Pulse Ox 91 L 01/12/20 09:54 Intake & Output 01/11/20 01/12/20 01/12/20 18:59 06:59 18:59 Intake Total 832.35 136.101 236 Output Total 301 2 Balance 531.35 134.101 236 Weight 73 kg Intake: Intake, IV Titration 112.35 136.101 Amount Heparin Sod,Pork in 0.45% 112.35 136.101 NaCl 25,000 unit In 0.45 % NaCl 1 250ml.bag @ 18 UNITS/KG/HR 12.002 mls/hr IV .[id number] [facility] Rx#: [id number] Oral 720 236 Output: Urine 300 Stool 1 2 Other: Voiding Method Bedpan # Voids 1 1 2 # Bowel Movements 1 - Labs CBC & Chem 7: 01/12/20 07:45 01/12/20 07:45 Labs: Abnormal Lab Results - Last 24 Hours (Table) 01/11/20 01/11/20 01/11/20 Range/Units 16:48 16:59 20:21 WBC (3.8-10.6) k/uL Hgb (11.4-16.0) gm/dL Hct (34.0-46.0) % Neutrophils # (1.3-7.7) k/uL Lymphocytes # (1.0-4.8) k/uL APTT 42.7 H (22.0-30.0) sec Sodium (137-145) mmol/L BUN (7-17) mg/dL Glucose (74-99) mg/dL POC Glucose (mg/dL) 141 H 163 H (75-99) mg/dL 01/12/20 01/12/20 01/12/20 Range/Units 00:28 07:21 07:45 WBC 12.3 H (3.8-10.6) k/uL Hgb 16.3 H (11.4-16.0) gm/dL Hct 49.4 H (34.0-46.0) % Neutrophils # 10.8 H (1.3-7.7) k/uL Lymphocytes # 0.9 L (1.0-4.8) k/uL APTT 80.7 H (22.0-30.0) sec Sodium (137-145) mmol/L BUN (7-17) mg/dL Glucose (74-99) mg/dL POC Glucose (mg/dL) 155 H (75-99) mg/dL 01/12/20 01/12/20 01/12/20 Range/Units 07:45 07:45 11:48 WBC (3.8-10.6) k/uL Hgb (11.4-16.0) gm/dL Hct (34.0-46.0) % Neutrophils # (1.3-7.7) k/uL Lymphocytes # (1.0-4.8) k/uL APTT 58.7 H (22.0-30.0) sec Sodium 136 L (137-145) mmol/L BUN 42 H (7-17) mg/dL Glucose 191 H (74-99) mg/dL POC Glucose (mg/dL) 258 H (75-99) mg/dL Microbiology - Last 24 Hours (Table) 01/09/20 09:15 Blood Culture - Preliminary Blood No Growth after 72 hours
[2020-01-12] MEDS ORDERED: REMDESIVIR 200 MG in SODIUM CHLORIDE 0.9% 250 ML IVPB ONE (13:00)
--- NOTE | 2020-01-12 13:48 | P.PN ---
Subjective Progress Note Date: 01/12/20 Oxygen requirement increasing this morning currently on 80% FiO2. Patient reports feeling slightly more short of breath than yesterday. Nothing significant. Chest x-ray is a little bit worse also compared to yesterday. No fevers or chills. Objective - Vital Signs Vital signs: Vital Signs Temp 97.8 F 01/12/20 09:54 Pulse 85 01/12/20 11:30 Resp 30 H 01/12/20 12:44 BP 127/82 01/12/20 11:30 Pulse Ox 93 L 01/12/20 12:44 Intake & Output 01/11/20 01/12/20 01/12/20 18:59 06:59 18:59 Intake Total 832.35 136.101 236 Output Total 301 2 Balance 531.35 134.101 236 Weight 73 kg Intake: Intake, IV Titration 112.35 136.101 Amount Heparin Sod,Pork in 0.45% 112.35 136.101 NaCl 25,000 unit In 0.45 % NaCl 1 250ml.bag @ 18 UNITS/KG/HR 12.002 mls/hr IV .[id number] REPLACED BY [facility] Rx#: [id number] Oral 720 236 Output: Urine 300 Stool 1 2 Other: Voiding Method Bedpan # Voids 1 1 2 # Bowel Movements 1 - Exam General: The patient is awake and alert, in no distress Eye: there is normal conjunctiva bilaterally. Neck: The neck is supple, there is no JVD. Cardiovascular: Normal S1-S2, no S3-S4, no murmurs. Respiratory: Lungs with scattered crackles and rhonchi Gastrointestinal: Abdomen is soft, nontender Musculoskeletal: There is no pedal edema. Neurological:. Speech is normal. Skin: Skin is warm and dry - Labs CBC & Chem 7: 01/12/20 07:45 01/12/20 07:45 Labs: Abnormal Lab Results - Last 24 Hours (Table) 01/11/20 01/11/20 01/11/20 Range/Units 16:48 16:59 20:21 WBC (3.8-10.6) k/uL Hgb (11.4-16.0) gm/dL Hct (34.0-46.0) % Neutrophils # (1.3-7.7) k/uL Lymphocytes # (1.0-4.8) k/uL APTT 42.7 H (22.0-30.0) sec Sodium (137-145) mmol/L BUN (7-17) mg/dL Glucose (74-99) mg/dL POC Glucose (mg/dL) 141 H 163 H (75-99) mg/dL 01/12/20 01/12/20 01/12/20 Range/Units 00:28 07:21 07:45 WBC 12.3 H (3.8-10.6) k/uL Hgb 16.3 H (11.4-16.0) gm/dL Hct 49.4 H (34.0-46.0) % Neutrophils # 10.8 H (1.3-7.7) k/uL Lymphocytes # 0.9 L (1.0-4.8) k/uL APTT 80.7 H (22.0-30.0) sec Sodium (137-145) mmol/L BUN (7-17) mg/dL Glucose (74-99) mg/dL POC Glucose (mg/dL) 155 H (75-99) mg/dL 01/12/20 01/12/20 01/12/20 Range/Units 07:45 07:45 11:48 WBC (3.8-10.6) k/uL Hgb (11.4-16.0) gm/dL Hct (34.0-46.0) % Neutrophils # (1.3-7.7) k/uL Lymphocytes # (1.0-4.8) k/uL APTT 58.7 H (22.0-30.0) sec Sodium 136 L (137-145) mmol/L BUN 42 H (7-17) mg/dL Glucose 191 H (74-99) mg/dL POC Glucose (mg/dL) 258 H (75-99) mg/dL Microbiology - Last 24 Hours (Table) 01/09/20 09:15 Blood Culture - Preliminary Blood No Growth after 72 hours Assessment and Plan Assessment: This is a 79-year-old female with complex past medical history noted below who presented to the hospital with generalized fatigue and worsening shortness of breath. Patient was diagnosed with Covid19 I week ago prior to her presentation after she was tested approximately 2 weeks ago. She finished azithromycin course at home. Patient was evaluated in the ER and currently admitted to the hospital for further management of medical problems noted below. 1. Pulmonary embolism: Echocardiogram showed preserved EF with no evidence of right ventricular strain. Currently on anticoagulation with IV heparin. Not a candidate for thrombolysis, discussed with Dr. Qureshi 2. Covid19 pneumonia, positive test at an outside facility a week ago. started on dexamethasone 6 mg daily day #4/. We will continue to monitor inflammatory markers. Pulmonary consulted for further evaluation, appreciate recommendations. Patient is outside the window for Remdesivir that given her worsening her clinical status will be started today first dose 03/02. Continue zinc, melatonin, and vitamin C daily 3. New onset atrial fibrillation, rate controlled. Thyroid function tests within normal range. Seen and evaluated by cardiology. Started metoprolol 25 mg twice daily. Continue case monitor. Patient already on anticoagulation secondary to PE. 4. Acute hypoxic respiratory failure secondary to #1 and 2. Bilateral groundglass opacity most likely secondary to Covid19. Bacterial pneumonia appears to be less likely clinically. Pro-calcitonin only slightly elevated. 5. Severe sepsis without septic shock, secondary to Covid-19. Lactic acid is normal. Improved with IV fluid hydration. Blood culture negative to date. 6. Hypokalemia, replaced 7. 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 Questionable compliance. 8. Essential hypertension: Blood pressure within acceptable range. We will continue to monitor 9. CODE STATUS: Patient would like to be full code Today, I reviewed her medication list and lab work results. Continue current regimen. Appreciate sap basis consultant's recommendations. Repeat lab work in the morning including inflammatory markers
[2020-01-12 14:06] LABS: C Reactive Protein 47.9 mg/L (<10.0)
[2020-01-12 16:56] LABS: Glucose,Whole Blood 168 mg/dL (75-99)
[2020-01-12] MEDS ORDERED: RIVAROXABAN 20 MG TAB PO SCH (17:30)
--- NOTE | 2020-01-12 18:17 | P.PN ---
Subjective Progress Note Date: 01/12/20 On today's evaluation of 01/12/2020, the patient is being seen in follow-up. As mentioned earlier, the patient was infected with jane virus Covid 19 and the patient had an acute Covid 19 related pneumonia with diffuse breath and pulmonary infiltrates. Subsequently, the patient had a CT angios of the chest that showed bilateral pulmonary infiltrates and groundglass opacities in addition to pulmonary embolism involving mainly the right-sided pulmonary artery branches. Filling defect in the right pulmonary artery and segmental branches in addition to that there is a mild component of strain pattern. Nevertheless, tachycardic and short and a ejection fraction of 6065% and the patient had no en largement of the right ventricle and there was no evidence of any pulmonary hypertension. Noted the patient oxidation is gradually gotten worse and currently the patient is on high flow oxygen at 6 L with an FiO2 of 85% and this was utilized to bring the saturation above 90%. The patient is on IV heparin with a therapeutic PTT of 58.7. Based on the acute jane virus Covid 19 infection, the patient had an LDH of 1455 and a CRP is at 47.9. The patient is having difficulty breathing with minimal amount of activity. Currently she is on bedrest. The patient has no pleurisy. No hemoptysis. Altered mentation. No other significant events overnight. Based on the worsening oxygenation, repe at chest x-ray was done and showed a patchy bilateral pulmonary infiltrates right more than left. No pleural effusion. The findings are essentially stable compared to yesterday's chest x-ray. Objective - Vital Signs Vital signs: Vital Signs Temp 97.7 F 01/12/20 14:56 Pulse 97 01/12/20 15:00 Resp 24 01/12/20 17:05 BP 113/74 01/12/20 14:56 Pulse Ox 92 L 01/12/20 17:05 Intake & Output 01/11/20 01/12/20 01/12/20 18:59 06:59 18:59 Intake Total 832.35 136.101 824 Output Total 301 2 400 Balance 531.35 134.101 424 Weight 73 kg Intake: IV 88 Heparin Sod,Pork in 0.45% 88 NaCl 25,000 unit In 0.45 % NaCl 1 250ml.bag @ 18 UNITS/KG/HR 12.002 mls/hr IV .[id number] [facility] Rx#: [id number] Intake, IV Titration 112.35 136.101 250 Amount Heparin Sod,Pork in 0.45% 112.35 136.101 NaCl 25,000 unit In 0.45 % NaCl 1 250ml.bag @ 18 UNITS/KG/HR 12.002 mls/hr IV .[id number] [facility] Rx#: [id number] Remdesivir (Eua) 100 mg 250 In Sodium Chloride 0.9% 250 ml @ 250 mls/hr IVPB Q24H [facility] Rx#:[id number] Oral 720 486 Output: Urine 300 400 Stool 1 2 Other: Voiding Method Bedpan Bedpan # Voids 1 1 2 # Bowel Movements 1 - Exam GENERAL EXAM: Alert, very pleasant 79-year-old female patient on high flow ox ygen with a 60 L flow and FiO2 of 85%. HEAD: Normocephalic. EYES: Normal reaction of pupils, equal size. NOSE: Clear with pink turbinates. THROAT: No erythema or exudates. NECK: No masses, no JVD. CHEST: No chest wall deformity. LUNGS: Equal air entry with scattered rhonchi., The patient is crackles lung bases bilaterally. CVS: S1 and S2 normal with no audible murmur, irregular rhythm. ABDOMEN: No hepatosplenomegaly, normal bowel sounds, no guarding or rigidity. SPINE: No scoliosis or deformity SKIN: No rashes CENTRAL NERVOUS SYSTEM: No focal deficits, tone is normal in all 4 extremities. EXTREMITIES: There is no peripheral edema. No clubbing, no cyanosis. Peripheral pulses are intact. - Labs CBC & Chem 7: 01/12/20 07:45 01/12/20 07:45 Labs: Abnormal Lab Results - Last 24 Hours (Table) 01/11/20 01/12/20 01/12/20 Range/Units 20:21 00:28 07:21 WBC (3.8-10.6) k/uL Hgb (11.4-16.0) gm/dL Hct (34.0-46.0) % Neutrophils # (1.3-7.7) k/uL Lymphocytes # (1.0-4.8) k/uL APTT 80.7 H (22.0-30.0) sec Sodium (137-145) mmol/L BUN (7-17) mg/dL Glucose (74-99) mg/dL POC Glucose (mg/dL) 163 H 155 H (75-99) mg/dL Lactate Dehydrogenase (313-618) U/L C-Reactive Protein (<10.0) mg/L Coronavirus (PCR) (Not Detectd) 01/12/20 01/12/20 01/12/20 Range/Units 07:45 07:45 07:45 WBC 12.3 H (3.8-10.6) k/uL Hgb 16.3 H (11.4-16.0) gm/dL Hct 49.4 H (34.0-46.0) % Neutrophils # 10.8 H (1.3-7.7) k/uL Lymphocytes # 0.9 L (1.0-4.8) k/uL APTT 58.7 H (22.0-30.0) sec Sodium 136 L (137-145) mmol/L BUN 42 H (7-17) mg/dL Glucose 191 H (74-99) mg/dL POC Glucose (mg/dL) (75-99) mg/dL Lactate Dehydrogenase (313-618) U/L C-Reactive Protein (<10.0) mg/L Coronavirus (PCR) (Not Detectd) 01/12/20 01/12/20 01/12/20 Range/Units 07:45 11:48 15:00 WBC (3.8-10.6) k/uL Hgb (11.4-16.0) gm/dL Hct (34.0-46.0) % Neutrophils # (1.3-7.7) k/uL Lymphocytes # (1.0-4.8) k/uL APTT (22.0-30.0) sec Sodium (137-145) mmol/L BUN (7-17) mg/dL Glucose (74-99) mg/dL POC Glucose (mg/dL) 258 H (75-99) mg/dL Lactate Dehydrogenase 1455 H (313-618) U/L C-Reactive Protein 47.9 H (<10.0) mg/L Coronavirus (PCR) Detected A (Not Detectd) 01/12/20 Range/Units 16:55 WBC (3.8-10.6) k/uL Hgb (11.4-16.0) gm/dL Hct (34.0-46.0) % Neutrophils # (1.3-7.7) k/uL Lymphocytes # (1.0-4.8) k/uL APTT (22.0-30.0) sec Sodium (137-145) mmol/L BUN (7-17) mg/dL Glucose (74-99) mg/dL POC Glucose (mg/dL) 168 H (75-99) mg/dL Lactate Dehydrogenase (313-618) U/L C-Reactive Protein (<10.0) mg/L Coronavirus (PCR) (Not Detectd) Microbiology - Last 24 Hours (Table) 01/09/20 09:15 Blood Culture - Preliminary Blood No Growth after 72 hours Assessment and Plan Plan: 1 acute hypoxic respiratory failure predominantly secondary to Covid 19 related pneumonia and there is also some contribution to her hypoxemia because of the pulmonary embolism. I think the majority of the hypoxemia is related to Covid 19 related pneumonia. The pulmonary embolus itself . It is smaller clot burden and there is no signs of any pulmonary hypertension with right-sided heart failure or strain pattern on the echocardiogram. As such, I do not think the p ulmonary embolism has Limited motion of the hypoxemia. The patient is currently on IV heparin. The oxygen decompensation happened as the patient developed worsening in the pulmonary infiltrates. The chest x-ray from today's quite stable 2 acute right-sided pulmonary embolism, probably related to Covid 19 related hypercoagulability. 3 Covid 19 related pneumonia 4 new onset atrial fibrillation with RVR, currently on IV heparin 5 hypertension 6 remote history of DVT and the patient was taken Xarelto on outpatient basis 7 hypertension plan We'll start the patient on Decadron 6 mg by mouth daily. would start the patient on Remdesivir per protocol in addition to the rest of the supplements including vitamin C, vitamin D, melatonin, Pepcid and zinc We'll continue IV heparin for now discussed the case with vascular surgery and there is no role for EKOS as the patient does not have any significant signs up on hypertension check a Doppler of the lower extremities bilaterally monitor the oxygenation monitor inflammatory markers Condition is critical we'll continue to follow. Cardiology is on the case. Keep the patient IV heparin for now.
[2020-01-12] MEDS ORDERED: HEPARIN SOD,PORK IN 0.45% NACL 25,000 UNIT in 0.45% NACL 1 250ML.BAG IV SCH (18:45)
[2020-01-12] MEDS: MELATONIN 5 MG TABLET PO SCH (20:19)
[2020-01-12] MEDS: dexAMETHasone 2 MG TAB PO SCH (20:19)
[2020-01-12 21:09] LABS: Glucose,Whole Blood 157 mg/dL (75-99)
[2020-01-13 00:22] LABS: Ferritin 462.9 ng/mL (10.0-291.0)
[2020-01-13 03:44] LABS: Glucose,Whole Blood 156 mg/dL (75-99)
[2020-01-13 04:55] LABS: Basophils # (A) 0.1 k/uL (0-0.2); Basophils % (A) 1 %; Eosinophils % (A) 0 %; HCT 44.2 % (34.0-46.0); HGB 14.4 gm/dL (11.4-16.0); Lymphocytes # (A) 0.5 k/uL (1.0-4.8); Lymphocytes % (A) 5 %; MCHC 32.5 g/dL (31.0-37.0); MCV 92.2 fL (80.0-100.0); Mean Platelet Volume 8.2; Monocytes # (A) 0.3 k/uL (0-1.0); Monocytes % (A) 3 %; Neutrophils # (A) 9.1 k/uL (1.3-7.7); Neutrophils % (A) 90 %; Platelet Count 321 k/uL (150-450); RBC 4.79 m/uL (3.80-5.40); RDW 12.4 % (11.5-15.5); WBC 10.2 k/uL (3.8-10.6)
[2020-01-13 05:13] LABS: African American GFR (CKD) >90 (>60 ml/min/1.73 sqM); Anion Gap 4 mmol/L; Blood Urea Nitrogen 46 mg/dL (7-17); Calcium 9.1 mg/dL (8.4-10.2); Carbon Dioxide 21 mmol/L (22-30); Chloride 107 mmol/L (98-107); Glucose 178 mg/dL (74-99); Magnesium 2.1 mg/dL (1.6-2.3); Non-African American GFR(CKD) 90 (>60 ml/min/1.73 sqM); Potassium 4.4 mmol/L (3.5-5.1); Sodium 132 mmol/L (137-145)
[2020-01-13] MEDS ORDERED: DILTIAZEM ORAL 30 MG TAB PO SCH ×2 (08:30→09:00)
[2020-01-13] MEDS: METOPROLOL TARTRATE 50 MG TAB PO SCH ×2 (08:34→20:15)
[2020-01-13] MEDS: ZINC SULFATE 220 MG CAP PO SCH (08:34)
[2020-01-13] MEDS: ASCORBIC ACID 500 MG TAB PO SCH (08:35)
[2020-01-13] MEDS: CHOLECALCIFEROL 1,000 UNIT TAB PO SCH (08:35)
[2020-01-13] MEDS: FAMOTIDINE 20 MG TAB PO SCH (08:35)
--- NOTE | 2020-01-13 09:33 | PN ---
PROGRESS NOTE Mrs. Johnson is a 79-year-old female who has atrial fibrillation and presented with COVID-19 pneumonia. She is feeling much better today. According to her, she has much more energy. Her breathing is better. She denies any symptoms of chest pain. She denies any dizziness. She denies any palpitation. She feels that her appetite and her energy improved drastically since yesterday. She continues to be in atrial fibrillation with episode of rapid ventricular response. She continues to be on amlodipine 5 mg daily, IV heparin, metoprolol 25 mg twice a day. She was started on Remdesivir and dexamethasone. PHYSICAL EXAMINATION: Blood pressure 123/80 with a heart rate in the 110s. LUNGS: With scattered crackles. HEART: Irregular, regular, S1, S2. No S3. No rub appreciated. ABDOMEN: Soft, nontender. EXTREMITIES: No edema. Chest x-ray revealed bilateral infiltrate with mild worsening compared to yesterday. Her BUN and creatinine 46 and 0.55, potassium 4.4, hemoglobin of 14.4. IMPRESSION: 1. COVID-19 pneumonia. 2. Atrial fibrillation. 3. History of hypertension. 4. Prior history of deep venous thrombosis. RECOMMENDATION: I will stop her amlodipine and increase the dose of her beta neha. Patient needs to be switched to oral anticoagulation when it is agreeable with Dr. Johnson. Depending on her progress, further recommendation will be made. MMODL / IJN: [id number] / MTDD
--- NOTE | 2020-01-13 10:40 | XR ---
EXAMINATION TYPE: XR chest 1V portable DATE OF EXAM: 01/13/2020 COMPARISON: 01/12/2020 INDICATION: Assess lungs TECHNIQUE: Single frontal view of the chest is obtained. FINDINGS: The heart size is normal. The pulmonary vasculature is normal. Diffuse patchy infiltrate is present bilaterally. This most focal in the right lower lobe which is in creasing from comparison. Degenerative changes are noted at the bilateral shoulders IMPRESSION: 1. Worsening bilateral lung infiltrates, greater in the right lower lobe.
[2020-01-13] MEDS: ALBUTEROL HFA INHALER INHALATION PRN ×2 (11:14→20:43)
--- NOTE | 2020-01-13 12:18 | P.PN ---
Subjective Progress Note Date: 01/13/20 Patient is resting in bed this morning. She denies any shortness of breath at rest. She appeared easily winded by just moving in her bed. Oxygen requirement increased since yesterday. Patient required a nonrebreather on top of the high flow oxygen overnight. Objective - Vital Signs Vital signs: Vital Signs Temp 98.6 F 01/13/20 04:00 Pulse 94 01/13/20 11:00 Resp 27 H 01/13/20 11:00 BP 115/85 01/13/20 11:00 Pulse Ox 88 L 01/13/20 11:00 Intake & Output 01/12/20 01/13/20 01/13/20 18:59 06:59 18:59 Intake Total 824 270 50 Output Total 400 300 225 Balance 424 -30 -175 Intake: IV 88 30 50 .9 @ KVO 30 50 Heparin Sod,Pork in 0.45% 88 NaCl 25,000 unit In 0.45 % NaCl 1 250ml.bag @ 18 UNITS/KG/HR 12.002 mls/hr IV .[id number] [facility] Rx#: [id number] Intake, IV Titration 250 Amount Remdesivir (Eua) 100 mg 250 In Sodium Chloride 0.9% 250 ml @ 250 mls/hr IVPB Q24H [facility] Rx#:[id number] Oral 486 240 Output: Urine 400 300 225 Other: Voiding Method Bedpan Bedpan # Voids 2 - Exam General: The patient is awake and alert, in no distress Eye: there is normal conjunctiva bilaterally. Neck: The neck is supple, there is no JVD. Cardiovascular: Normal S1-S2, no S3-S4, no murmurs. Respiratory: Lungs with scattered crackles and rhonchi Gastrointestinal: Abdomen is soft, nontender Musculoskeletal: There is no pedal edema. Neurological:. Speech is normal. Skin: Skin is warm and dry - Labs CBC & Chem 7: 01/13/20 04:16 01/13/20 04:16 Labs: Abnormal Lab Results - Last 24 Hours (Table) 01/12/20 01/12/20 01/12/20 Range/Units 07:45 15:00 16:55 Neutrophils # (1.3-7.7) k/uL Lymphocytes # (1.0-4.8) k/uL APTT (22.0-30.0) sec Sodium (137-145) mmol/L Carbon Dioxide (22-30) mmol/L BUN (7-17) mg/dL Glucose (74-99) mg/dL POC Glucose (mg/dL) 168 H (75-99) mg/dL Ferritin 462.9 H (10.0-291.0) ng/mL Lactate Dehydrogenase 1455 H (313-618) U/L C-Reactive Protein 47.9 H (<10.0) mg/L Coronavirus (PCR) Detected A (Not Detectd) 01/12/20 01/13/20 01/13/20 Range/Units 21:08 03:42 04:16 Neutrophils # (1.3-7.7) k/uL Lymphocytes # (1.0-4.8) k/uL APTT (22.0-30.0) sec Sodium 132 L (137-145) mmol/L Carbon Dioxide 21 L (22-30) mmol/L BUN 46 H (7-17) mg/dL Glucose 178 H (74-99) mg/dL POC Glucose (mg/dL) 157 H 156 H (75-99) mg/dL Ferritin (10.0-291.0) ng/mL Lactate Dehydrogenase (313-618) U/L C-Reactive Protein (<10.0) mg/L Coronavirus (PCR) (Not Detectd) 01/13/20 01/13/20 Range/Units 04:16 04:16 Neutrophils # 9.1 H (1.3-7.7) k/uL Lymphocytes # 0.5 L (1.0-4.8) k/uL APTT 48.2 H (22.0-30.0) sec Sodium (137-145) mmol/L Carbon Dioxide (22-30) mmol/L BUN (7-17) mg/dL Glucose (74-99) mg/dL POC Glucose (mg/dL) (75-99) mg/dL Ferritin (10.0-291.0) ng/mL Lactate Dehydrogenase (313-618) U/L C-Reactive Protein (<10.0) mg/L Coronavirus (PCR) (Not Detectd) Microbiology - Last 24 Hours (Table) 01/09/20 09:15 Blood Culture - Preliminary Blood No Growth after 96 hours Assessment and Plan Assessment: This is a 79-year-old female with complex past medical history noted below who presented to the hospital with generalized fatigue and worsening shortness of breath. Patient was diagnosed with Covid19 I week ago prior to her presentation after she was tested approximately 2 weeks ago. She finished azithromycin course at home. Patient was evaluated in the ER and currently admitted to the hospital for further management of medical problems noted below. 1. Pulmonary embolism: Echocardiogram showed preserved EF with no evidence of right ventricular strain. Currently on anticoagulation with IV heparin. Not a candidate for thrombolysis as there is no evidence of right ventricular strain, discussed with Dr. Qureshi 2. Covid19 pneumonia, positive test at an outside facility a week ago prior to the presentation. Repeat PCR here in the hospital was also positive.. started on dexamethasone 6 mg daily day #5/10. We will continue to monitor inflammatory markers. Pulmonary consulted for further evaluation, appreciate recommendations. Patient was outside the window for Remdesivir but given her worsening her clinical status she was started on it currently day number 2/5. Continue zinc, melatonin, and vitamin C daily 3. New onset atrial fibrillation with rapid ventricular response, currently rate controlled. Thyroid function tests within normal range. Seen and evaluated by cardiology. Started metoprolol dose has been adjusted as needed. Continue clinical research monitor. Patient already on anticoagulation secondary to PE. 4. Acute hypoxic respiratory failure secondary to #1 and 2. Bilateral groundglass opacity most likely secondary to Covid19. Bacterial pneumonia appears to be less likely clinically. Pro-calcitonin only slightly elevated. 5. Severe sepsis without septic shock, secondary to Covid-19. Lactic acid is normal. Improved with IV fluid hydration. Blood culture negative to date. 6. Hypokalemia, replaced 7. 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 Questionable compliance. 8. Essential hypertension: Blood pressure within acceptable range. We will continue to monitor 9. CODE STATUS: Patient would like to be full code Today, I reviewed her medication list and lab work results. Continue ICU care. Continue current regimen. Appreciate taxation consultant's recommendations. Repeat lab work in the morning including inflammatory markers
[2020-01-13] MEDS: REMDESIVIR 100 MG in SODIUM CHLORIDE 0.9% 250 ML IVPB SCH (13:08)
[2020-01-13] MEDS: ACETAMINOPHEN TAB 325 MG TAB PO PRN (13:09)
--- NOTE | 2020-01-13 14:49 | CDI ---
Documentation Clarification Form Date: 01/13/2020 02:25:37 PM From: Nati Henriquez RN CCDS Admit Date: 01/09/2020 12:10:00 PM Patient Name: Paola Johnson Visit Number: [id number] Discharge Date: ATTENTION: The Clinical Documentation Specialists (CDI) and [facility] Coding Staff appreciate your assistance in clarifying documentation. Please respond to the clarification below the line at the bottom and electronically sign. The CDI & [facility] Coding staff will review the response and follow-up if needed. Please note: Queries are made part of the Legal Health Record. If you have any questions, please contact the author of this message via ITS. Dr. Maisha Hughes The Sepsis has been documented in your progress notes 01/09 through 01/12 History/Risk Factors: 79-year-old female presents to the ED with positive covid with generalized fatigue. Admitted with Pulmonary embolism and Covid 19 Clinical Indicators: 01/08 11:05 VSS: B/P 109/91; HR 84; Temp Oral 99.1 F; RR 18; SpO2 92% 2L nasal cannula 01/08 Labs: D-dimer 14.09; Na 129; Bun 18; AST 40; LDH 887; CRP 48.7; Albumin 3.3; Procalcitonin 0.10; 01/08 CXR: Mild hazy density in the periphery of the mid and lower lungs. 01/09 Your Progress Note. Severe sepsis without septic shock, secondary to COVID 19. Lactic acid is normal. Improved with fluid hydration. Treatment:01/08 Vitamin C, Vitamin D, Dexamethasone, Zinc and Remdesivir Definition of Present on Admission (POA): A diagnosis present at the time the order for admission to inpatient status was written. For each diagnosis, documentation must be clear to determine if the condition was present at the time of the patients inpatient admission or developed during the hospital stay. Please clarify if Sepsis was POA: ____Y = Yes, the condition was present at the time of the order for inpatient admission. ____N = No, the condition was not present at the time of the order for inpatient admission. ____W = Clinically undetermined if the condition was present at the time of the order for inpatient admission. ____ Sepsis Ruled Out (Last Revision: Jan 2018) He is, present on admission MTDD
--- NOTE | 2020-01-13 15:02 | P.PN ---
Subjective Progress Note Date: 01/13/20 On today's evaluation of 01/12/2020, the patient is being seen in follow-up. As mentioned earlier, the patient was infected with jane virus Covid 19 and the patient had an acute Covid 19 related pneumonia with diffuse breath and pulmonary infiltrates. Subsequently, the patient had a CT angios of the chest that showed bilateral pulmonary infiltrates and groundglass opacities in addition to pulmonary embolism involving mainly the right-sided pulmonary artery branches. Filling defect in the right pulmonary artery and segmental branches in addition to that there is a mild component of strain pattern. Nevertheless, tachycardic and short and a ejection fraction of 6065% and the patient had no en largement of the right ventricle and there was no evidence of any pulmonary hypertension. Noted the patient oxidation is gradually gotten worse and currently the patient is on high flow oxygen at 6 L with an FiO2 of 85% and this was utilized to bring the saturation above 90%. The patient is on IV heparin with a therapeutic PTT of 58.7. Based on the acute jane virus Covid 19 infection, the patient had an LDH of 1455 and a CRP is at 47.9. The patient is having difficulty breathing with minimal amount of activity. Currently she is on bedrest. The patient has no pleurisy. No hemoptysis. Altered mentation. No other significant events overnight. Based on the worsening oxygenation, repe at chest x-ray was done and showed a patchy bilateral pulmonary infiltrates right more than left. No pleural effusion. The findings are essentially stable compared to yesterday's chest x-ray. On 01/13/2020, I'm seeing this patient for a follow-up. Overnight, the patient a chance to the intensive care unit as the patient was found to be getting progressively more hypoxic. This morning, the patient is a mild degree of respiratory distress. The patient is on airflow high flow oxygen which is set at 60 L and the patient is also wearing 100% nonrebreather facemask. Current pulse ox is around 93-94%. The patient remains on IV heparin regarding her pulmonary embolism. The patient is also on a combination of Decadron and Remdesivir regarding the jane virus Covid 19 related pneumonia. The chest x- ray still showing diffuse bilateral pulmonary infiltrates, essentially unchanged compared to yesterday, probably slightly worse compared to yesterday. The patient was also in atrial fibrillation. She was having episodes response. The patient was seen by cardiology and the patient's metoprolol dose was increased up to 50 mg by mouth twice a day. She has no complaints otherwise for now. She is afebrile. She is hemodynamic is stable. The white cell count of 10.2. Renal function is stable. Electrodes are within normal limits. Objective - Vital Signs Vital signs: Vital Signs Temp 98.6 F 01/13/20 04:00 Pulse 116 H 01/13/20 08:00 Resp 26 H 01/13/20 08:00 BP 129/95 01/13/20 08:00 Pulse Ox 92 L 01/13/20 08:00 Intake & Output 01/12/20 01/13/20 01/13/20 18:59 06:59 18:59 Intake Total 824 270 10 Output Total 400 300 Balance 424 -30 10 Intake: IV 88 30 10 .9 @ KVO 30 10 Heparin Sod,Pork in 0.45% 88 NaCl 25,000 unit In 0.45 % NaCl 1 250ml.bag @ 18 UNITS/KG/HR 12.002 mls/hr IV .[id number] [facility] Rx#: [id number] Intake, IV Titration 250 Amount Remdesivir (Eua) 100 mg 250 In Sodium Chloride 0.9% 250 ml @ 250 mls/hr IVPB Q24H [facility] Rx#:[id number] Oral 486 240 Output: Urine 400 300 Other: Voiding Method Bedpan # Voids 2 - Exam GENERAL EXAM: Alert, very pleasant 79-year-old female patient on high flow oxygen with a 60 L flow and FiO2 of 85%, and addition to 100% nonrebreather facemask and the patient is using dual oxygen source. HEAD: Normocephalic. EYES: Normal reaction of pupils, equal size. NOSE: Clear with pink turbinates. THROAT: No erythema or exudates. NECK: No masses, no JVD. CHEST: No chest wall deformity. LUNGS: Equal air entry with scattered rhonchi., The patient is crackles lung bases bilaterally. CVS: S1 and S2 normal with no audible murmur, irregular rhythm. ABDOMEN: No hepatosplenomegaly, normal bowel sounds, no guarding or rigidity. SPINE: No scoliosis or deformity SKIN: No rashes CENTRAL NERVOUS SYSTEM: No focal deficits, tone is normal in all 4 extremities. EXTREMITIES: There is no peripheral edema. No clubbing, no cyanosis. Peripheral pulses are intact. - Labs CBC & Chem 7: 01/13/20 04:16 01/13/20 04:16 Labs: Abnormal Lab Results - Last 24 Hours (Table) 01/12/20 01/12/20 01/12/20 Range/Units 07:45 07:45 07:45 WBC 12.3 H (3.8-10.6) k/uL Hgb 16.3 H (11.4-16.0) gm/dL Hct 49.4 H (34.0-46.0) % Neutrophils # 10.8 H (1.3-7.7) k/uL Lymphocytes # 0.9 L (1.0-4.8) k/uL APTT 58.7 H (22.0-30.0) sec Sodium 136 L (137-145) mmol/L Carbon Dioxide (22-30) mmol/L BUN 42 H (7-17) mg/dL Glucose 191 H (74-99) mg/dL POC Glucose (mg/dL) (75-99) mg/dL Ferritin (10.0-291.0) ng/mL Lactate Dehydrogenase (313-618) U/L C-Reactive Protein (<10.0) mg/L Coronavirus (PCR) (Not Detectd) 01/12/20 01/12/20 01/12/20 Range/Units 07:45 11:48 15:00 WBC (3.8-10.6) k/uL Hgb (11.4-16.0) gm/dL Hct (34.0-46.0) % Neutrophils # (1.3-7.7) k/uL Lymphocytes # (1.0-4.8) k/uL APTT (22.0-30.0) sec Sodium (137-145) mmol/L Carbon Dioxide (22-30) mmol/L BUN (7-17) mg/dL Glucose (74-99) mg/dL POC Glucose (mg/dL) 258 H (75-99) mg/dL Ferritin 462.9 H (10.0-291.0) ng/mL Lactate Dehydrogenase 1455 H (313-618) U/L C-Reactive Protein 47.9 H (<10.0) mg/L Coronavirus (PCR) Detected A (Not Detectd) 01/12/20 01/12/20 01/13/20 Range/Units 16:55 21:08 03:42 WBC (3.8-10.6) k/uL Hgb (11.4-16.0) gm/dL Hct (34.0-46.0) % Neutrophils # (1.3-7.7) k/uL Lymphocytes # (1.0-4.8) k/uL APTT (22.0-30.0) sec Sodium (137-145) mmol/L Carbon Dioxide (22-30) mmol/L BUN (7-17) mg/dL Glucose (74-99) mg/dL POC Glucose (mg/dL) 168 H 157 H 156 H (75-99) mg/dL Ferritin (10.0-291.0) ng/mL Lactate Dehydrogenase (313-618) U/L C-Reactive Protein (<10.0) mg/L Coronavirus (PCR) (Not Detectd) 01/13/20 01/13/20 01/13/20 Range/Units 04:16 04:16 04:16 WBC (3.8-10.6) k/uL Hgb (11.4-16.0) gm/dL Hct (34.0-46.0) % Neutrophils # 9.1 H (1.3-7.7) k/uL Lymphocytes # 0.5 L (1.0-4.8) k/uL APTT 48.2 H (22.0-30.0) sec Sodium 132 L (137-145) mmol/L Carbon Dioxide 21 L (22-30) mmol/L BUN 46 H (7-17) mg/dL Glucose 178 H (74-99) mg/dL POC Glucose (mg/dL) (75-99) mg/dL Ferritin (10.0-291.0) ng/mL Lactate Dehydrogenase (313-618) U/L C-Reactive Protein (<10.0) mg/L Coronavirus (PCR) (Not Detectd) Microbiology - Last 24 Hours (Table) 01/09/20 09:15 Blood Culture - Preliminary Blood No Growth after 72 hours Assessment and Plan Plan: 1 acute hypoxic respiratory failure predominantly secondary to Covid 19 related pneumonia and there is also some contribution to her hypoxemia because of the pulmonary embolism. I think the majority of the hypoxemia is related to Covid 19 related pneumonia. The pulmonary embolus itself . It is smaller clot burden and there is no signs of any pulmonary hypertension with right-sided heart failure or strain pattern on the echocardiogram. As such, I do not think the pulmonary embolism has Limited motion of the hypoxemia. The patient is currently on IV heparin. The patient overnight developed further decompensation and the patient became progressively more hypoxic and currently she is in intens tara care unit utilizing a combination of high flow oxygen and 100% nonrebreather facemask. The patient is currently undergoing treatment for acute coronavirus Covid 19 related pneumonia. 2 acute right-sided pulmonary embolism, probably related to Covid 19 related hypercoagulability.The patient is on IV heparin with a therapeutic PTT. 3 Covid 19 related pneumonia 4 new onset atrial fibrillation with RVR, currently on IV heparin, The patient is also on metoprolol for rate control 5 hypertension 6 remote history of DVT and the patient was taken Xarelto on outpatient basis 7 hypertension plan Offered this patient high flow oxygen in addition to 100% nonrebreather facemask Discussed the possibility of the need for intubation if her condition gets worse and the patient was agreeable Continue Decadron 6 mg by mouth daily. Continue Remdesivir per protocol in addition to the rest of the supplements including vitamin C, vitamin D, melatonin, Pepcid and zinc We'll continue IV heparin for now Metoprolol for rate control and is a 50 mg by mouth twice a day. Add Cardizem if needed for rate control discussed the case with vascular surgery and there is no role for EKOS as the p atient does not have any significant signs up on hypertension monitor inflammatory markers Condition is critical we'll continue to follow. The patient be kept in the intensive care unit for now.
[2020-01-13 16:59] LABS: Glucose,Whole Blood 157 mg/dL (75-99)
[2020-01-13] MEDS: HEPARIN SOD,PORK IN 0.45% NACL 25,000 UNIT in 0.45% NACL 1 250ML.BAG IV SCH (20:14)
[2020-01-13] MEDS: MELATONIN 5 MG TABLET PO SCH (20:15)
[2020-01-13] MEDS: dexAMETHasone 2 MG TAB PO SCH (20:15)
[2020-01-13 20:20] LABS: Glucose,Whole Blood 145 mg/dL (75-99)
[2020-01-13] MEDS: INSULIN ASPART (NovoLOG) 100 UNIT/ML VIAL SQ SCH (20:23)
[2020-01-13 22:03] LABS: ABG HCO3 23 mmol/L (21-25); ABG PCO2 29 mmHg (35-45); ABG PH 7.51 (7.35-7.45); ABG PO2 63 mmHg (83-108); Allen Test Performed? Yes
[2020-01-13 22:04] LABS: ABG Base Excess 0.4 mmol/L; ABG TCO2 24 mmol/L (19-24)
[2020-01-14 04:13] LABS: Basophils # (A) 0.1 k/uL (0-0.2); Basophils % (A) 1 %; Eosinophils # (A) 0.1 k/uL (0-0.7); Eosinophils % (A) 1 %; HCT 45.5 % (34.0-46.0); HGB 14.8 gm/dL (11.4-16.0); Lymphocytes # (A) 0.5 k/uL (1.0-4.8); Lymphocytes % (A) 5 %; MCHC 32.6 g/dL (31.0-37.0); MCV 92.1 fL (80.0-100.0); Mean Platelet Volume 7.3; Monocytes # (A) 0.2 k/uL (0-1.0); Monocytes % (A) 2 %; Neutrophils # (A) 9.8 k/uL (1.3-7.7); Neutrophils % (A) 91 %; Platelet Count 331 k/uL (150-450); RBC 4.94 m/uL (3.80-5.40); RDW 12.3 % (11.5-15.5); WBC 10.8 k/uL (3.8-10.6)
[2020-01-14 04:47] LABS: African American GFR (CKD) >90 (>60 ml/min/1.73 sqM); Anion Gap 6 mmol/L; Blood Urea Nitrogen 40 mg/dL (7-17); Calcium 9.3 mg/dL (8.4-10.2); Carbon Dioxide 22 mmol/L (22-30); Chloride 107 mmol/L (98-107); Glucose 174 mg/dL (74-99); Non-African American GFR(CKD) 89 (>60 ml/min/1.73 sqM); Potassium 4.6 mmol/L (3.5-5.1); Sodium 135 mmol/L (137-145)
[2020-01-14] MEDS ORDERED: HEPARIN SOD,PORK IN 0.45% NACL 25,000 UNIT in 0.45% NACL 1 250ML.BAG IV SCH (05:00)
[2020-01-14] MEDS: METOPROLOL TARTRATE 50 MG TAB PO SCH ×2 (06:21→20:49)
[2020-01-14 06:36] LABS: Glucose,Whole Blood 137 mg/dL (75-99)
[2020-01-14] MEDS: INSULIN ASPART (NovoLOG) 100 UNIT/ML VIAL SQ SCH ×4 (06:45→21:29)
--- NOTE | 2020-01-14 07:14 | XR ---
EXAMINATION TYPE: XR chest 1V DATE OF EXAM: 01/14/2020 HISTORY: Shortness of breath. COMPARISON: 01/13/2020 TECHNIQUE: Single view of the chest is submitted. FINDINGS: Demonstrated are scattered senescent parenchymal change. Diffuse airspace infiltrates throughout the right lung persists. There is also infiltrate about the l eft hilar and left upper lobe regions. Overall stable appearance of the chest is noted. The heart is stable. Hilar and mediastinal structures are within normal limits. Degenerative changes are seen of the dorsal spine. IMPRESSION: 1. Diffuse airspace infiltrates throughout the right lung persists. There is also infiltrate about t he left hilar and left upper lobe regions. Overall stable appearance of the chest is noted.
[2020-01-14] MEDS: ALBUTEROL HFA INHALER INHALATION PRN ×2 (07:39→15:57)
[2020-01-14] MEDS: FAMOTIDINE 20 MG TAB PO SCH (08:12)
[2020-01-14] MEDS: ZINC SULFATE 220 MG CAP PO SCH (08:12)
[2020-01-14] MEDS: DILTIAZEM ORAL 30 MG TAB PO SCH ×3 (08:12→20:49)
[2020-01-14] MEDS: CHOLECALCIFEROL 1,000 UNIT TAB PO SCH (08:12)
[2020-01-14] MEDS: ASCORBIC ACID 500 MG TAB PO SCH (08:12)
--- NOTE | 2020-01-14 09:28 | PN ---
PROGRESS NOTE Mrs. Johnson is a 79-year-old female who presented with symptoms of progressive dyspnea, had evidence of COVID-19 pneumonia. She had atrial fibrillation, her rate is rapid at times, but she has been relatively controlled on metoprolol 50 mg twice a day. Hemodynamically otherwise, her blood pressure is stable. She continues to be on the IV heparin. She can be switched to Xarelto. Depending on the need to undergo any further intervention, otherwise, she can to be switched back and discuss that with Dr. Johnson yesterday. She had no evidence of malignant arrhythmia. Continues to be on the IV heparin, dexamethasone, metoprolol 50 mg twice a day and Remdesivir. PHYSICAL EXAMINATION: Her blood pressure 120/80 with a heart rate running in the high 90s, low 100s. LAB: Showed a hemoglobin 14.8, BUN and creatinine 40 and 0.57. Her chest x-ray shows bilateral infiltrate consistent with the COVID-19 pneumonia. IMPRESSION: 1. COVID-19 pneumonia, being treated. 2. Atrial fibrillation with episode of rapid ventricular response. 3. Hypertension. 4. History of deep venous thrombosis. RECOMMENDATION: I will add to her regimen Cardizem 30 mg 3 times a day to optimize her heart rate control and will switch her to oral anticoagulation once it is agreeable with Dr. Johnson. MMODL / IJN: [id number] /
[2020-01-14] MEDS: RIVAROXABAN 15 MG TAB PO SCH ×2 (09:51→17:07)
[2020-01-14 12:14] LABS: Glucose,Whole Blood 142 mg/dL (75-99)
[2020-01-14] MEDS: REMDESIVIR 100 MG in SODIUM CHLORIDE 0.9% 250 ML IVPB SCH (12:21)
[2020-01-14 14:01] LABS: Hemoglobin A1C 6.5 % (4.0-6.0)
--- NOTE | 2020-01-14 14:44 | P.PN ---
Subjective Progress Note Date: 01/14/20 Patient is resting in bed this morning. She denies any shortness of breath at rest. She still requiring high flow oxygen 93% FiO2 Objective - Vital Signs Vital signs: Vital Signs Temp 98.8 F 01/14/20 12:00 Pulse 88 01/14/20 12:00 Resp 25 H 01/14/20 12:00 BP 105/69 01/14/20 12:00 Pulse Ox 90 L 01/14/20 12:00 Intake & Output 01/13/20 01/14/20 01/14/20 18:59 06:59 18:59 Intake Total 120 137 596 Output Total 545 1015 320 Balance -425 -878 276 Weight 72.5 kg 72.5 kg Intake: IV 120 120 60 .9 @ KVO 120 120 60 Oral 536 Tube Feeding 17 Output: Urine 545 1015 320 Other: Voiding Method Indwelling Catheter Indwelling Catheter Indwelling Catheter - Exam General: The patient is awake and alert, in no distress Eye: there is normal conjunctiva bilaterally. Neck: The neck is supple, there is no JVD. Cardiovascular: Normal S1-S2, no S3-S4, no murmurs. Respiratory: Lungs with scattered crackles and rhonchi Gastrointestinal: Abdomen is soft, nontender Musculoskeletal: There is no pedal edema. Neurological:. Speech is normal. Skin: Skin is warm and dry - Labs CBC & Chem 7: 01/14/20 03:56 01/14/20 03:56 Labs: Abnormal Lab Results - Last 24 Hours (Table) 01/13/20 01/13/20 01/13/20 Range/Units 16:57 20:19 21:58 WBC (3.8-10.6) k/uL Neutrophils # (1.3-7.7) k/uL Lymphocytes # (1.0-4.8) k/uL APTT (22.0-30.0) sec ABG pH 7.51 H (7.35-7.45) ABG pCO2 29 L (35-45) mmHg ABG pO2 63 L (83-108) mmHg Sodium (137-145) mmol/L BUN (7-17) mg/dL Glucose (74-99) mg/dL POC Glucose (mg/dL) 157 H 145 H (75-99) mg/dL Hemoglobin A1c (4.0-6.0) % 01/14/20 01/14/20 01/14/20 Range/Units 03:56 03:56 03:56 WBC 10.8 H (3.8-10.6) k/uL Neutrophils # 9.8 H (1.3-7.7) k/uL Lymphocytes # 0.5 L (1.0-4.8) k/uL APTT 49.4 H (22.0-30.0) sec ABG pH (7.35-7.45) ABG pCO2 (35-45) mmHg ABG pO2 (83-108) mmHg Sodium 135 L (137-145) mmol/L BUN 40 H (7-17) mg/dL Glucose 174 H (74-99) mg/dL POC Glucose (mg/dL) (75-99) mg/dL Hemoglobin A1c (4.0-6.0) % 01/14/20 01/14/20 01/14/20 Range/Units 03:56 06:35 12:11 WBC (3.8-10.6) k/uL Neutrophils # (1.3-7.7) k/uL Lymphocytes # (1.0-4.8) k/uL APTT (22.0-30.0) sec ABG pH (7.35-7.45) ABG pCO2 (35-45) mmHg ABG pO2 (83-108) mmHg Sodium (137-145) mmol/L BUN (7-17) mg/dL Glucose (74-99) mg/dL POC Glucose (mg/dL) 137 H 142 H (75-99) mg/dL Hemoglobin A1c 6.5 H (4.0-6.0) % Microbiology - Last 24 Hours (Table) 01/09/20 09:15 Blood Culture - Preliminary Blood No Growth after 120 hours Assessment and Plan Assessment: This is a 79-year-old female with complex past medical history noted below who presented to the hospital with generalized fatigue and worsening shortness of breath. Patient was diagnosed with Covid19 I week ago prior to her presentation after she was tested approximately 2 weeks ago. She finished azithromycin course at home. Patient was evaluated in the ER and currently admitted to the hospital for further management of medical problems noted below. 1. Pulmonary embolism: Echocardiogram showed preserved EF with no evidence of right ventricular strain. Started on IV heparin and switched to Rivaroxaban 15 mg twice daily on 01/13. Not a candidate for thrombolysis as there is no evidence of right ventricular strain, discussed with Dr. Qureshi 2. Covid19 pneumonia, positive test at an outside facility a week ago prior to the presentation. Repeat PCR here in the hospital was also positive.. started on dexamethasone 6 mg daily day #6/10. We will continue to monitor inflammatory markers. Pulmonary consulted for further evaluation, appreciate recommendations. Patient was outside the window for Remdesivir but given her worsening her clinical status she was started on it currently day number 3/5. Continue zinc, melatonin, and vitamin C daily. Plan for convalescent plasma today 3. New onset atrial fibrillation with rapid ventricular response, currently rate controlled. Thyroid function tests within normal range. Seen and evaluated by cardiology. Started metoprolol dose adjusted to 50 mg twice daily. Continue monitor worker. Patient already on anticoagulation secondary to PE. 4. Acute hypoxic respiratory failure secondary to #1 and 2. Bilateral groundglass opacity most likely secondary to Covid19. Bacterial pneumonia appears to be less likely clinically. Pro-calcitonin only slightly elevated. 5. Severe sepsis without septic shock, secondary to Covid-19. Lactic acid is normal. Improved with IV fluid hydration. Blood culture negative to date. 6. Hypokalemia, replaced 7. 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 Questionable compliance. 8. Essential hypertension: Blood pressure within acceptable range. We will continue to monitor 9. CODE STATUS: Patient would like to be full code Today, I reviewed her medication list and lab work results. Continue ICU care. Continue current regimen. Appreciate [facility] consultant's recommendations. Repeat lab work in the morning including inflammatory markers
--- NOTE | 2020-01-14 15:23 | P.PN ---
Subjective Progress Note Date: 01/14/20 On today's evaluation of 01/12/2020, the patient is being seen in follow-up. As mentioned earlier, the patient was infected with jane virus Covid 19 and the patient had an acute Covid 19 related pneumonia with diffuse breath and pulmonary infiltrates. Subsequently, the patient had a CT angios of the chest that showed bilateral pulmonary infiltrates and groundglass opacities in addition to pulmonary embolism involving mainly the right-sided pulmonary artery branches. Filling defect in the right pulmonary artery and segmental branches in addition to that there is a mild component of strain pattern. Nevertheless, tachycardic and short and a ejection fraction of 6065% and the patient had no en largement of the right ventricle and there was no evidence of any pulmonary hypertension. Noted the patient oxidation is gradually gotten worse and currently the patient is on high flow oxygen at 6 L with an FiO2 of 85% and this was utilized to bring the saturation above 90%. The patient is on IV heparin with a therapeutic PTT of 58.7. Based on the acute jane virus Covid 19 infection, the patient had an LDH of 1455 and a CRP is at 47.9. The patient is having difficulty breathing with minimal amount of activity. Currently she is on bedrest. The patient has no pleurisy. No hemoptysis. Altered mentation. No other significant events overnight. Based on the worsening oxygenation, repe at chest x-ray was done and showed a patchy bilateral pulmonary infiltrates right more than left. No pleural effusion. The findings are essentially stable compared to yesterday's chest x-ray. On 01/13/2020, I'm seeing this patient for a follow-up. Overnight, the patient a chance to the intensive care unit as the patient was found to be getting progressively more hypoxic. This morning, the patient is a mild degree of respiratory distress. The patient is on airflow high flow oxygen which is set at 60 L and the patient is also wearing 100% nonrebreather facemask. Current pulse ox is around 93-94%. The patient remains on IV heparin regarding her pulmonary embolism. The patient is also on a combination of Decadron and Remdesivir regarding the jane virus Covid 19 related pneumonia. The chest x- ray still showing diffuse bilateral pulmonary infiltrates, essentially unchanged compared to yesterday, probably slightly worse compared to yesterday. The patient was also in atrial fibrillation. She was having episodes response. The patient was seen by cardiology and the patient's metoprolol dose was increased up to 50 mg by mouth twice a day. She has no complaints otherwise for now. She is afebrile. She is hemodynamic is stable. The white cell count of 10.2. Renal function is stable. Electrodes are within normal limits. On 01/14/2020, the patient is in the intensive care unit and the patient is being seen in follow-up regarding his Covid 19 related pneumonia. The patient remains in the 100% nonrebreather facemask addition to high flow oxygen 6 L with an FiO2 of 90%. The patient had a blood gas that showed a pH of 7.51 with a pCO2 of 29 and pO2 of 63. The patient is awake and alert. She does not seem to be a significant degree of respirator distress despite this profound hypoxemia. She remains in atrial fibrillation. At times she is going to the rapid shauna tricular response. She is on examination of Cardizem and metoprolol and a dose is being adjusted. The patient IV heparin and the patient will be switched back to Xarelto. Meanwhile, the patient is being treated for the Covid 19 related pneumonia with accommodation of Decadron and Remdesivir and the patient will be also started the on convalescent plasma if available. She is doing well. No specific complaints or issues otherwise on this patient for now. Her electrolytes are within normal limits. Her white cell count of 10.8 and hemoglobin of 14.8. PTT is therapeutic on today's evaluation. Objective - Vital Signs Vital signs: Vital Signs Temp 98.9 F 01/14/20 08:00 Pulse 114 H 01/14/20 08:00 Resp 15 01/14/20 08:00 BP 123/93 01/14/20 08:00 Pulse Ox 93 L 01/14/20 08:00 Intake & Output 01/13/20 01/14/20 01/14/20 18:59 06:59 18:59 Intake Total 120 137 20 Output Total 545 1015 155 Balance -425 -878 -135 Weight 72.5 kg Intake: IV 120 120 20 .9 @ KVO 120 120 20 Tube Feeding 17 Output: Urine 545 1015 155 Other: Voiding Method Indwelling Catheter Indwelling Catheter - Exam GENERAL EXAM: Alert, very pleasant 79-year-old female patient on high flow oxygen with a 60 L flow and FiO2 of 85%, and addition to 100% nonrebreather facemask and the patient is using dual oxygen source. HEAD: Normocephalic. EYES: Normal reaction of pupils, equal size. NOSE: Clear with pink turbinates. THROAT: No erythema or exudates. NECK: No masses, no JVD. CHEST: No chest wall deformity. LUNGS: Equal air entry with scattered rhonchi., The patient is crackles lung bases bilaterally. CVS: S1 and S2 normal with no audible murmur, irregular rhythm. ABDOMEN: No hepatosplenomegaly, normal bowel sounds, no guarding or rigidity. SPINE: No scoliosis or deformity SKIN: No rashes CENTRAL NERVOUS SYSTEM: No focal deficits, tone is normal in all 4 extremities. EXTREMITIES: There is no peripheral edema. No clubbing, no cyanosis. Peripheral pulses are intact. - Labs CBC & Chem 7: 01/14/20 03:56 01/14/20 03:56 Labs: Abnormal Lab Results - Last 24 Hours (Table) 01/12/20 01/13/20 01/13/20 Range/Units 07:45 16:57 20:19 WBC (3.8-10.6) k/uL Neutrophils # (1.3-7.7) k/uL Lymphocytes # (1.0-4.8) k/uL APTT (22.0-30.0) sec ABG pH (7.35-7.45) ABG pCO2 (35-45) mmHg ABG pO2 (83-108) mmHg Sodium (137-145) mmol/L BUN (7-17) mg/dL Glucose (74-99) mg/dL POC Glucose (mg/dL) 157 H 145 H (75-99) mg/dL Procalcitonin 0.17 H (0.02-0.09) ng/mL 01/13/20 01/14/20 01/14/20 Range/Units 21:58 03:56 03:56 WBC 10.8 H (3.8-10.6) k/uL Neutrophils # 9.8 H (1.3-7.7) k/uL Lymphocytes # 0.5 L (1.0-4.8) k/uL APTT (22.0-30.0) sec ABG pH 7.51 H (7.35-7.45) ABG pCO2 29 L (35-45) mmHg ABG pO2 63 L (83-108) mmHg Sodium 135 L (137-145) mmol/L BUN 40 H (7-17) mg/dL Glucose 174 H (74-99) mg/dL POC Glucose (mg/dL) (75-99) mg/dL Procalcitonin (0.02-0.09) ng/mL 01/14/20 01/14/20 Range/Units 03:56 06:35 WBC (3.8-10.6) k/uL Neutrophils # (1.3-7.7) k/uL Lymphocytes # (1.0-4.8) k/uL APTT 49.4 H (22.0-30.0) sec ABG pH (7.35-7.45) ABG pCO2 (35-45) mmHg ABG pO2 (83-108) mmHg Sodium (137-145) mmol/L BUN (7-17) mg/dL Glucose (74-99) mg/dL POC Glucose (mg/dL) 137 H (75-99) mg/dL Procalcitonin (0.02-0.09) ng/mL Microbiology - Last 24 Hours (Table) 01/09/20 09:15 Blood Culture - Preliminary Blood No Growth after 96 hours Assessment and Plan Plan: 1 acute hypoxic respiratory failure predominantly secondary to Covid 19 related pneumonia and there is also some contribution to her hypoxemia because of the pulmonary embolism. I think the majority of the hypoxemia is related to Covid 19 related pneumonia. The pulmonary embolus itself . It is smaller clot burden and there is no signs of any pulmonary hypertension with right-sided heart failure or strain pattern on the echocardiogram. The patient is being treated with a combination of Decadron and Remdesivir and we'll try also to offer this patient embolism plasma. The patient is still requiring high flow oxygen in addition to 100% nonrebreather facemask. The patient is quite hypoxic in the chest x-ray findings are essentially stable with diffuse bilateral pulmonary infiltrates. 2 acute right-sided pulmonary embolism, probably related to Covid 19 related hypercoagulability.The patient is on IV heparin with a therapeutic PTT. 3 Covid 19 related pneumonia 4 new onset atrial fibrillation with RVR, currently on IV heparin, The patient is also on metoprolol for rate control, in addition to Cardizem at a dose of 30 mg 3 times a day and metoprolol is running at a dose of 50 mg twice a day. 5 hypertension 6 remote history of DVT and the patient was taken Xarelto on outpatient basis 7 hypertension plan Offered this patient high flow oxygen in addition to 100% nonrebreather facemask Discussed the possibility of the need for intubation if her condition gets worse and the patient was agreeable Continue Decadron 6 mg by mouth daily in addition to Remdesivir per protocol in addition to the rest of the supplements including vitamin C, vitamin D, melatonin, Pepcid and zinc We'll order convalescent plasma and offered to the patient if available stopped IV heparin and put the patient is Xarelto per protocol 15 mg twice a day for 3 weeks and following that 20 mg on a daily basis Metoprolol for rate control and is a 50 mg by mouth twice a day. Continue Cardizem for rate control and adjust the dose for about heart rate control discussed the case with vascular surgery and there is no role for EKOS as the patient does not have any significant signs up on hypertension monitor inflammatory markers Condition is critical we'll continue to follow. The patient be kept in the intensive care unit for now.
[2020-01-14 17:11] LABS: Glucose,Whole Blood 138 mg/dL (75-99)
[2020-01-14] MEDS: MELATONIN 5 MG TABLET PO SCH (20:49)
[2020-01-14] MEDS: dexAMETHasone 2 MG TAB PO SCH (20:49)
[2020-01-14 21:06] LABS: Glucose,Whole Blood 209 mg/dL (75-99)
[2020-01-14] MEDS: ACETAMINOPHEN TAB 325 MG TAB PO PRN (23:10)
[2020-01-15 05:36] LABS: Basophils # (A) 0.1 k/uL (0-0.2); Basophils % (A) 1 %; Eosinophils % (A) 0 %; HCT 44.2 % (34.0-46.0); HGB 14.5 gm/dL (11.4-16.0); Lymphocytes # (A) 0.2 k/uL (1.0-4.8); Lymphocytes % (A) 2 %; MCH 30.3 pg (25.0-35.0); MCHC 32.9 g/dL (31.0-37.0); Monocytes # (A) 0.2 k/uL (0-1.0); Monocytes % (A) 2 %; Neutrophils # (A) 11.6 k/uL (1.3-7.7); Neutrophils % (A) 94 %; Platelet Count 173 k/uL (150-450); RDW 12.6 % (11.5-15.5); WBC 12.3 k/uL (3.8-10.6)
[2020-01-15 05:48] LABS: D-Dimer 34.11 mg/L FEU (<0.60); Partial Thromboplastin Time 23.7 sec (22.0-30.0)
[2020-01-15 06:17] LABS: Glucose,Whole Blood 166 mg/dL (75-99)
[2020-01-15] MEDS: DILTIAZEM ORAL 30 MG TAB PO SCH (06:22)
[2020-01-15] MEDS: RIVAROXABAN 15 MG TAB PO SCH ×2 (06:22→17:12)
[2020-01-15] MEDS: METOPROLOL TARTRATE 50 MG TAB PO SCH ×2 (06:22→20:30)
[2020-01-15] MEDS: INSULIN ASPART (NovoLOG) 100 UNIT/ML VIAL SQ SCH ×4 (06:22→20:48)
[2020-01-15 06:47] LABS: Albumin 2.8 g/dL (3.5-5.0); Calcium 9.3 mg/dL (8.4-10.2); Potassium 4.9 mmol/L (3.5-5.1); Total Bilirubin 1.6 mg/dL (0.2-1.3); Total Protein 5.8 g/dL (6.3-8.2)
[2020-01-15] MEDS: ALBUTEROL HFA INHALER INHALATION PRN (07:01)
--- NOTE | 2020-01-15 07:31 | XR ---
EXAMINATION TYPE: XR chest 1V portable DATE OF EXAM: 01/15/2020 COMPARISON: Prior chest x-ray 01/14/2020 HISTORY: Shortness of breath TECHNIQUE: Single frontal view of the chest is obtained. FINDINGS: Bilateral airspace disease is again seen. No evident pneumothorax or sizable effusion. Hea rt is stable. Aorta is dense. Arthropathy noted in the shoulders. IMPRESSION: Correlate for pneumonia, edema
[2020-01-15 07:45] LABS: C Reactive Protein 57.2 mg/L (<10.0)
[2020-01-15] MEDS ORDERED: DILTIAZEM ORAL 30 MG TAB PO ONE (07:45)
[2020-01-15] MEDS: ASCORBIC ACID 500 MG TAB PO SCH (08:26)
[2020-01-15] MEDS: CHOLECALCIFEROL 1,000 UNIT TAB PO SCH (08:27)
[2020-01-15] MEDS: FAMOTIDINE 20 MG TAB PO SCH (08:27)
[2020-01-15] MEDS: ZINC SULFATE 220 MG CAP PO SCH (08:27)
--- NOTE | 2020-01-15 09:34 | PN ---
PROGRESS NOTE Mrs. Johnson is a 79-year-old female who presented with evidence of COVID-19 pneumonia. She has atrial fibrillation with episode of rapid ventricular response. She was started on anticoagulation yesterday. She continues to have episode of hypoxemia with episode of rapid ventricular response. Her rate is better with the addition of the Cardizem and the beta neha. There is no evidence of ventricular ectopic activity or pauses. She continues to be on metoprolol tartrate 50 mg twice a day, Xarelto 50 mg twice a day, diltiazem 30 mg b.i.d. Blood pressure 137/80 with a heart rate in the 100s, temperature of 100.4. LAB DATA: Revealed BUN and creatinine 15 and 0.76, potassium 4.9 hemoglobin of 14.5. IMPRESSION: 1. COVID-19 pneumonia. 2. Atrial fibrillation with episode of rapid ventricular response. 3. Right-sided pulmonary embolism. 4. Hypertension. 5. Prior history of deep venous thrombosis. RECOMMENDATION: Will continue present therapy. From the cardiac standpoint, she is on Xarelto protocol 50 mg twice a day for 3 weeks and subsequently on 20 mg daily. We will continue on present dose of beta neha. I will increase the dose of her Cardizem to control her blood pressure better. Depending on her progress, further recommendation will be made. MMODL / IJN: [id number] /
[2020-01-15 09:38] LABS: Ferritin 328.2 ng/mL (10.0-291.0)
--- NOTE | 2020-01-15 09:53 | P.PN ---
Subjective Progress Note Date: 01/15/20 Patient is resting in bed this morning. She denies any shortness of breath at rest. She still requiring high flow oxygen >93% FiO2 No significant clinical improvement compared to yesterday Objective - Vital Signs Vital signs: Vital Signs Temp 98.9 F 01/15/20 08:00 Pulse 89 01/15/20 09:00 Resp 32 H 01/15/20 09:00 BP 124/84 01/15/20 09:00 Pulse Ox 87 L 01/15/20 09:00 Intake & Output 01/14/20 01/15/20 01/15/20 18:59 06:59 18:59 Intake Total 1093 120 272 Output Total 705 650 90 Balance 388 -530 182 Weight 72.5 kg 71.4 kg Intake: IV 120 120 50 .9 @ KVO 120 120 50 Oral 772 222 Blood Product 201 Ffp Pher Conval Covid19 201 Acda 3 Unit [id number] Output: Urine 705 650 90 Other: Voiding Method Indwelling Catheter Indwelling Catheter - Exam General: The patient is awake and alert, in no distress Eye: there is normal conjunctiva bilaterally. Neck: The neck is supple, there is no JVD. Cardiovascular: Normal S1-S2, no S3-S4, no murmurs. Respiratory: Lungs are diminished with scattered crackles and rhonchi Gastrointestinal: Abdomen is soft, nontender Musculoskeletal: There is no pedal edema. Neurological:. Speech is normal. Skin: Skin is warm and dry - Labs CBC & Chem 7: 01/15/20 04:47 01/15/20 06:11 Labs: Abnormal Lab Results - Last 24 Hours (Table) 01/14/20 01/14/20 01/14/20 Range/Units 03:56 12:11 17:10 WBC (3.8-10.6) k/uL Neutrophils # (1.3-7.7) k/uL Lymphocytes # (1.0-4.8) k/uL D-Dimer (<0.60) mg/L FEU Sodium (137-145) mmol/L BUN (7-17) mg/dL Glucose (74-99) mg/dL POC Glucose (mg/dL) 142 H 138 H (75-99) mg/dL Hemoglobin A1c 6.5 H (4.0-6.0) % Ferritin (10.0-291.0) ng/mL Total Bilirubin (0.2-1.3) mg/dL AST (14-36) U/L C-Reactive Protein (<10.0) mg/L Total Protein (6.3-8.2) g/dL Albumin (3.5-5.0) g/dL 01/14/20 01/15/20 01/15/20 Range/Units 21:03 04:47 04:47 WBC 12.3 H (3.8-10.6) k/uL Neutrophils # 11.6 H (1.3-7.7) k/uL Lymphocytes # 0.2 L (1.0-4.8) k/uL D-Dimer 34.11 H (<0.60) mg/L FEU Sodium (137-145) mmol/L BUN (7-17) mg/dL Glucose (74-99) mg/dL POC Glucose (mg/dL) 209 H (75-99) mg/dL Hemoglobin A1c (4.0-6.0) % Ferritin (10.0-291.0) ng/mL Total Bilirubin (0.2-1.3) mg/dL AST (14-36) U/L C-Reactive Protein (<10.0) mg/L Total Protein (6.3-8.2) g/dL Albumin (3.5-5.0) g/dL 01/15/20 01/15/20 Range/Units 06:11 06:15 WBC (3.8-10.6) k/uL Neutrophils # (1.3-7.7) k/uL Lymphocytes # (1.0-4.8) k/uL D-Dimer (<0.60) mg/L FEU Sodium 136 L (137-145) mmol/L BUN 50 H (7-17) mg/dL Glucose 191 H (74-99) mg/dL POC Glucose (mg/dL) 166 H (75-99) mg/dL Hemoglobin A1c (4.0-6.0) % Ferritin 328.2 H (10.0-291.0) ng/mL Total Bilirubin 1.6 H (0.2-1.3) mg/dL AST 45 H (14-36) U/L C-Reactive Protein 57.2 H (<10.0) mg/L Total Protein 5.8 L (6.3-8.2) g/dL Albumin 2.8 L (3.5-5.0) g/dL Microbiology - Last 24 Hours (Table) 01/09/20 09:15 Blood Culture - Preliminary Blood No Growth after 120 hours Assessment and Plan Assessment: This is a 79-year-old female with complex past medical history noted below who presented to the hospital with generalized fatigue and worsening shortness of breath. Patient was diagnosed with Covid19 I week ago prior to her present ation after she was tested approximately 2 weeks ago. She finished azithromycin course at home. Patient was evaluated in the ER and currently admitted to the hospital for further management of medical problems noted below. 1. Pulmonary embolism: Echocardiogram showed preserved EF with no evidence of right ventricular strain. Started on IV heparin and switched to Rivaroxaban 15 mg twice daily on 01/13. Not a candidate for thrombolysis as there is no evidence of right ventricular strain, discussed with Dr. Qureshi 2. Covid19 pneumonia, positive test at an outside facility a week ago prior to the presentation. Repeat PCR here in the hospital was also positive.. started on dexamethasone 6 mg daily day #7/10. We will continue to monitor inflammatory markers. Pulmonary consulted for further evaluation, appreciate recommendations. Patient was outside the window for Remdesivir but given her worsening her clinical status she was started on it currently day number 4/5. Continue zinc, melatonin, and vitamin C daily. s/p convalescent plasma on 01/13 3. New onset atrial fibrillation with rapid ventricular response, currently rate controlled. Thyroid function tests within normal range. Seen and evaluated by cardiology. Started metoprolol dose adjusted to 50 mg twice daily. Continue library monitor. Patient already on anticoagulation secondary to PE. 4. Acute hypoxic respiratory failure secondary to #1 and 2. Bilateral groundglass opacity most likely secondary to Covid19. Bacterial pneumonia appears to be less likely clinically. Pro-calcitonin only slightly elevated. 5. Severe sepsis without septic shock, secondary to Covid-19. Lactic acid is normal. Improved with IV fluid hydration. Blood culture negative to date. 6. Hypokalemia, replaced 7. 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 Questionable compliance. 8. Essential hypertension: Blood pressure within acceptable range. We will continue to monitor 9. CODE STATUS: Patient would like to be full code Today, I reviewed her medication list and lab work results. Continue ICU care. Patient remained in critical condition. Currently requiring airflow and a nonrebreather on top. Change albuterol inhaler to every 6 hours scheduled. Continue current regimen. Appreciate [employer] consultant's recommendations. Repeat lab work in the morning including inflammatory markers
[2020-01-15] MEDS: ACETAMINOPHEN TAB 325 MG TAB PO PRN (11:12)
[2020-01-15] MEDS: ALBUTEROL HFA INHALER INHALATION SCH ×3 (11:38→19:55)
[2020-01-15 11:53] LABS: Glucose,Whole Blood 169 mg/dL (75-99)
[2020-01-15] MEDS: REMDESIVIR 100 MG in SODIUM CHLORIDE 0.9% 250 ML IVPB SCH (12:32)
[2020-01-15] MEDS: ALPRAZolam 0.25 MG TAB PO PRN ×2 (12:38→23:11)
--- NOTE | 2020-01-15 14:52 | P.PN ---
Subjective Progress Note Date: 01/15/20 On today's evaluation of 01/12/2020, the patient is being seen in follow-up. As mentioned earlier, the patient was infected with jane virus Covid 19 and the patient had an acute Covid 19 related pneumonia with diffuse breath and pulmonary infiltrates. Subsequently, the patient had a CT angios of the chest that showed bilateral pulmonary infiltrates and groundglass opacities in addition to pulmonary embolism involving mainly the right-sided pulmonary artery branches. Filling defect in the right pulmonary artery and segmental branches in addition to that there is a mild component of strain pattern. Nevertheless, tachycardic and short and a ejection fraction of 6065% and the patient had no en largement of the right ventricle and there was no evidence of any pulmonary hypertension. Noted the patient oxidation is gradually gotten worse and currently the patient is on high flow oxygen at 6 L with an FiO2 of 85% and this was utilized to bring the saturation above 90%. The patient is on IV heparin with a therapeutic PTT of 58.7. Based on the acute jane virus Covid 19 infection, the patient had an LDH of 1455 and a CRP is at 47.9. The patient is having difficulty breathing with minimal amount of activity. Currently she is on bedrest. The patient has no pleurisy. No hemoptysis. Altered mentation. No other significant events overnight. Based on the worsening oxygenation, repe at chest x-ray was done and showed a patchy bilateral pulmonary infiltrates right more than left. No pleural effusion. The findings are essentially stable compared to yesterday's chest x-ray. On 01/13/2020, I'm seeing this patient for a follow-up. Overnight, the patient a chance to the intensive care unit as the patient was found to be getting progressively more hypoxic. This morning, the patient is a mild degree of respiratory distress. The patient is on airflow high flow oxygen which is set at 60 L and the patient is also wearing 100% nonrebreather facemask. Current pulse ox is around 93-94%. The patient remains on IV heparin regarding her pulmonary embolism. The patient is also on a combination of Decadron and Remdesivir regarding the jane virus Covid 19 related pneumonia. The chest x- ray still showing diffuse bilateral pulmonary infiltrates, essentially unchanged compared to yesterday, probably slightly worse compared to yesterday. The patient was also in atrial fibrillation. She was having episodes response. The patient was seen by cardiology and the patient's metoprolol dose was increased up to 50 mg by mouth twice a day. She has no complaints otherwise for now. She is afebrile. She is hemodynamic is stable. The white cell count of 10.2. Renal function is stable. Electrodes are within normal limits. On 01/14/2020, the patient is in the intensive care unit and the patient is being seen in follow-up regarding his Covid 19 related pneumonia. The patient remains in the 100% nonrebreather facemask addition to high flow oxygen 6 L with an FiO2 of 90%. The patient had a blood gas that showed a pH of 7.51 with a pCO2 of 29 and pO2 of 63. The patient is awake and alert. She does not seem to be a significant degree of respirator distress despite this profound hypoxemia. She remains in atrial fibrillation. At times she is going to the rapid shauna tricular response. She is on examination of Cardizem and metoprolol and a dose is being adjusted. The patient IV heparin and the patient will be switched back to Xarelto. Meanwhile, the patient is being treated for the Covid 19 related pneumonia with accommodation of Decadron and Remdesivir and the patient will be also started the on convalescent plasma if available. She is doing well. No specific complaints or issues otherwise on this patient for now. Her electrolytes are within normal limits. Her white cell count of 10.8 and hemoglobin of 14.8. PTT is therapeutic on today's evaluation. On 01/15/2020, I'm seeing the patient for a follow-up. The patient remains in the intensive care unit. Currently she is on high flow oxygen 60 L and her FiO2 is in the range of 90-91%. The patient is also utilizing occasionally 100% nonrebreather facemask to supplement her high flow oxygen and maintain a saturation above 90%. No chest pain. No pleurisy. No hemoptysis. She is on Xarelto regarding a pulmonary embolism. In regards to her jane virus Covid 19 infection, the patient is being treated with a combination of Decadron and Remdesivir and the patient also received 2 units of convalescent plasma. The chest x-ray findings are essentially stable. The patient has diffuse breath and pulmonary infiltrates which are essentially stable and unchanged compared to yesterday. Ferritin level is at 2, lower progressively blood work and electrodes are all within normal limits. The [place] [id number] related to her Covid 19 infection. The patient remains in atrial fibrillation. She is on metoprolol 50 mg by mouth twice a day and the patient is also on Cardizem 60 mg by mouth 3 times a day for rate control. No altered mentation. No other complaints otherwise for now. Objective - Vital Signs Vital signs: Vital Signs Temp 98.9 F 01/15/20 08:00 Pulse 105 H 01/15/20 10:00 Resp 33 H 01/15/20 10:00 BP 118/88 01/15/20 10:00 Pulse Ox 88 L 01/15/20 10:00 Intake & Output 01/14/20 01/15/20 01/15/20 18:59 06:59 18:59 Intake Total 1093 120 292 Output Total 705 650 120 Balance 388 -530 172 Weight 72.5 kg 71.4 kg Intake: IV 120 120 70 .9 @ KVO 120 120 70 Oral 772 222 Blood Product 201 Ffp Pher Conval Covid19 201 Acda 3 Unit [id number] Output: Urine 705 650 120 Other: Voiding Method Indwelling Catheter Indwelling Catheter - Exam GENERAL EXAM: Alert, very pleasant 79-year-old female patient on high flow oxygen with a 60 L flow and FiO2 of 85%, and addition to 100% nonrebreather facemask and the patient is using dual oxygen source. HEAD: Normocephalic. EYES: Normal reaction of pupils, equal size. NOSE: Clear with pink turbinates. THROAT: No erythema or exudates. NECK: No masses, no JVD. CHEST: No chest wall deformity. LUNGS: Equal air entry with scattered rhonchi., The patient is crackles lung bases bilaterally. CVS: S1 and S2 normal with no audible murmur, irregular rhythm. ABDOMEN: No hepatosplenomegaly, normal bowel sounds, no guarding or rigidity. SPINE: No scoliosis or deformity SKIN: No rashes CENTRAL NERVOUS SYSTEM: No focal deficits, tone is normal in all 4 extremities. EXTREMITIES: There is no peripheral edema. No clubbing, no cyanosis. Peripheral pulses are intact. - Labs CBC & Chem 7: 01/15/20 04:47 01/15/20 06:11 Labs: Abnormal Lab Results - Last 24 Hours (Table) 01/14/20 01/14/20 01/15/20 Range/Units 17:10 21:03 04:47 WBC 12.3 H (3.8-10.6) k/uL Neutrophils # 11.6 H (1.3-7.7) k/uL Lymphocytes # 0.2 L (1.0-4.8) k/uL D-Dimer (<0.60) mg/L FEU Sodium (137-145) mmol/L BUN (7-17) mg/dL Glucose (74-99) mg/dL POC Glucose (mg/dL) 138 H 209 H (75-99) mg/dL Ferritin (10.0-291.0) ng/mL Total Bilirubin (0.2-1.3) mg/dL AST (14-36) U/L C-Reactive Protein (<10.0) mg/L Total Protein (6.3-8.2) g/dL Albumin (3.5-5.0) g/dL 01/15/20 01/15/20 01/15/20 Range/Units 04:47 06:11 06:15 WBC (3.8-10.6) k/uL Neutrophils # (1.3-7.7) k/uL Lymphocytes # (1.0-4.8) k/uL D-Dimer 34.11 H (<0.60) mg/L FEU Sodium 136 L (137-145) mmol/L BUN 50 H (7-17) mg/dL Glucose 191 H (74-99) mg/dL POC Glucose (mg/dL) 166 H (75-99) mg/dL Ferritin 328.2 H (10.0-291.0) ng/mL Total Bilirubin 1.6 H (0.2-1.3) mg/dL AST 45 H (14-36) U/L C-Reactive Protein 57.2 H (<10.0) mg/L Total Protein 5.8 L (6.3-8.2) g/dL Albumin 2.8 L (3.5-5.0) g/dL 01/15/20 Range/Units 11:52 WBC (3.8-10.6) k/uL Neutrophils # (1.3-7.7) k/uL Lymphocytes # (1.0-4.8) k/uL D-Dimer (<0.60) mg/L FEU Sodium (137-145) mmol/L BUN (7-17) mg/dL Glucose (74-99) mg/dL POC Glucose (mg/dL) 169 H (75-99) mg/dL Ferritin (10.0-291.0) ng/mL Total Bilirubin (0.2-1.3) mg/dL AST (14-36) U/L C-Reactive Protein (<10.0) mg/L Total Protein (6.3-8.2) g/dL Albumin (3.5-5.0) g/dL Microbiology - Last 24 Hours (Table) 01/09/20 09:15 Blood Culture - Final Blood No Growth after 144 hours Assessment and Plan Plan: 1 acute hypoxic respiratory failure predominantly secondary to Covid 19 related pneumonia and there is also some contribution to her hypoxemia because of the pulmonary embolism. I think the majority of the hypoxemia is related to Covid 19 related pneumonia. The pulmonary embolus itself . It is smaller clot burden and there is no signs of any pulmonary hypertension with right-sided heart failure or strain pattern on the echocardiogram. The patient is being treated with a combination of Decadron and Remdesivir and the patient received a unit of convalescent plasma. The patient remains on high flow oxygen. The patient remains in the 100% nonrebreather facemask. Chest x-ray findings are unchanged. Inflammatory markers are still elevated. The patient is currently on oral anticoagulants with Xarelto. No major change in her condition compared to yesterday. Clinically the patient feels better. 2 acute right-sided pulmonary embolism, probably related to Covid 19 related hypercoagulability.The patient is on IV heparin with a therapeutic PTT. 3 Covid 19 related pneumonia 4 new onset atrial fibrillation with RVR, currently on IV heparin, The patient is also on metoprolol for rate control, in addition to Cardizem at a dose of 60 mg 3 times a day and metoprolol is running at a dose of 50 mg twice a day. 5 hypertension 6 remote history of DVT and the patient was taken Xarelto on outpatient basis 7 hypertension plan Offered this patient high flow oxygen at 60 L in addition to 100% nonrebreather facemask Clinically feeling somewhat better compared to yesterday. Continue Decadron 6 mg by mouth daily in addition to Remdesivir per protocol in addition to the rest of the supplements including vitamin C, vitamin D, melatonin, Pepcid and zinc The patient received a unit of convalescent plasma. Continue Xarelto 50 mg by mouth twice a day, loading for pulmonary embolism Metoprolol for rate control and is a 50 mg by mouth twice a day. Continue Cardizem for rate control and adjust the dose for about heart rate control , currently at 60 mg by mouth 3 times a day monitor inflammatory markers Condition is critical we'll continue to follow. The patient be kept in the intensive care unit for now.
[2020-01-15] MEDS: DILTIAZEM ORAL 60 MG TAB PO SCH ×2 (15:20→20:30)
[2020-01-15 16:48] LABS: Glucose,Whole Blood 130 mg/dL (75-99)
[2020-01-15] MEDS: MELATONIN 5 MG TABLET PO SCH (20:30)
[2020-01-15] MEDS: dexAMETHasone 2 MG TAB PO SCH (20:30)
[2020-01-15 20:44] LABS: Glucose,Whole Blood 154 mg/dL (75-99)
[2020-01-16] MEDS: ACETAMINOPHEN TAB 325 MG TAB PO PRN (00:08)
[2020-01-16] MEDS: ALPRAZolam 0.25 MG TAB PO PRN ×2 (04:15→11:28)
[2020-01-16 05:11] LABS: Albumin 2.7 g/dL (3.5-5.0); C Reactive Protein 72.1 mg/L (<10.0); Calcium 8.9 mg/dL (8.4-10.2); Potassium 4.5 mmol/L (3.5-5.1); Total Bilirubin 2.5 mg/dL (0.2-1.3); Total Protein 5.8 g/dL (6.3-8.2)
[2020-01-16 05:25] LABS: Basophils % (A) 0 %; Eosinophils % (A) 0 %; HCT 45.9 % (34.0-46.0); HGB 14.9 gm/dL (11.4-16.0); Lymphocytes # (A) 0.5 k/uL (1.0-4.8); Lymphocytes % (A) 3 %; MCH 29.7 pg (25.0-35.0); MCHC 32.5 g/dL (31.0-37.0); MCV 91.5 fL (80.0-100.0); Mean Platelet Volume 9.1; Monocytes # (A) 0.3 k/uL (0-1.0); Monocytes % (A) 2 %; Neutrophils # (A) 13.6 k/uL (1.3-7.7); Neutrophils % (A) 94 %; RBC 5.02 m/uL (3.80-5.40); RDW 13.7 % (11.5-15.5); WBC 14.5 k/uL (3.8-10.6)
[2020-01-16] MEDS: RIVAROXABAN 15 MG TAB PO SCH (06:20)
[2020-01-16 06:29] LABS: Glucose,Whole Blood 172 mg/dL (75-99)
[2020-01-16] MEDS: INSULIN ASPART (NovoLOG) 100 UNIT/ML VIAL SQ SCH ×3 (06:38→19:47)
[2020-01-16 06:44] LABS: Large Platelets Present; Platelet Count 61 k/uL (150-450)
[2020-01-16] MEDS ORDERED: SODIUM CHLORIDE 0.9% 1,000 ML IV ONE ×4 (07:18→21:59)
--- NOTE | 2020-01-16 07:45 | XR ---
EXAMINATION TYPE: XR chest 1V portable DATE OF EXAM: 01/16/2020 COMPARISON: 01/15/2020 INDICATION: Shortness of breath TECHNIQUE: Single frontal view of the chest is obtained. FINDINGS: The heart size is only prominent. The pulmonary vasculature is dominant. There is diffuse increased infiltrates present bilaterally. Findings are stable over the interval. IMPRESSION: 1. Diffuse bilateral lung infiltrates. Findings are stable. Continued follow-up is recommended.
[2020-01-16 08:30] LABS: ABG Base Excess -2.9 mmol/L; ABG HCO3 22 mmol/L (21-25); ABG Oxygen Saturation 92.9 % (94-97); ABG PCO2 34 mmHg (35-45); ABG PH 7.42 (7.35-7.45); ABG PO2 66 mmHg (83-108); ABG TCO2 23 mmol/L (19-24); Allen Test Performed? Yes
[2020-01-16] MEDS: ALBUTEROL HFA INHALER INHALATION SCH ×4 (08:35→20:11)
[2020-01-16] MEDS: ASCORBIC ACID 500 MG TAB PO SCH (09:08)
[2020-01-16] MEDS: CHOLECALCIFEROL 1,000 UNIT TAB PO SCH (09:08)
[2020-01-16] MEDS: ZINC SULFATE 220 MG CAP PO SCH (09:11)
[2020-01-16] MEDS: DILTIAZEM ORAL 60 MG TAB PO SCH ×3 (09:21→20:57)
[2020-01-16] MEDS: SODIUM CHLORIDE 0.9% 1,000 ML IV SCH ×3 (09:21→19:41)
[2020-01-16] MEDS: METOPROLOL TARTRATE 50 MG TAB PO SCH ×2 (09:21→20:57)
[2020-01-16] MEDS: FAMOTIDINE 20 MG TAB PO SCH (09:22)
--- NOTE | 2020-01-16 09:25 | PN ---
PROGRESS NOTE Mrs. Johnson is a 79-year-old female who was admitted with evidence of COVID-19 pneumonia. She continues to be in the ICU on high-flow non-rebreather. She is in atrial fibrillation, but her rate is controlled. Her blood pressure is stable. There is no evidence of ventricular tachyarrhythmia. There is no evidence of significant pauses. Her blood pressure has been relatively stable. She was initiated on anticoagulation and there is no evidence of bleeding. She has evidence of right-sided pulmonary embolism on presentation. She continues to be on dexamethasone, diltiazem 60 mg t.i.d., metoprolol tartrate 50 mg twice a day and Xarelto 15 mg twice a day. PHYSICAL EXAMINATION: Blood pressure in the 110s to 120s with a heart rate in the 80s. LAB DATA: Revealed BUN and creatinine 75 and 0.98, potassium 4.5 hemoglobin of 14.9. IMPRESSION: 1. COVID-19 pneumonia with respiratory failure on non-rebreather. 2. Pulmonary embolism. 3. Atrial fibrillation with rate controlled. 4. History of hypertension. 5. History of deep venous thrombosis. RECOMMENDATION: From the cardiac standpoint, will continue current therapy. Her rate is controlled. She will continue on the protocol for anticoagulation with the Xarelto 15 mg twice a day for 3 weeks and subsequently 20 mg daily. Will see her on an as-needed basis. Please feel free to call us for any question. MMODL / IJN: [id number] /
--- NOTE | 2020-01-16 10:44 | P.PN ---
Subjective Progress Note Date: 01/16/20 Patient oxygen requirement increased overnight and she is currently on BiPAP continuously. She is having increased work of breathing and respiratory rate in the 30s most of the time. Objective - Vital Signs Vital signs: Vital Signs Temp 98.7 F 01/16/20 04:00 Pulse 85 01/16/20 07:00 Resp 30 H 01/16/20 07:00 BP 127/101 01/16/20 07:00 Pulse Ox 92 L 01/16/20 07:00 Intake & Output 01/15/20 01/16/20 01/16/20 18:59 06:59 18:59 Intake Total 622 360 10 Output Total 424 491 10 Balance 198 -131 0 Weight 69.9 kg Intake: IV 210 120 10 .9 @ KVO 210 120 10 Oral 372 240 Tube Feeding 40 Output: Urine 420 490 10 Stool 4 1 Other: Voiding Method Indwelling Catheter Indwelling Catheter # Voids 2 - Exam General: The patient is awake and alert, BiPAP is on Eye: there is normal conjunctiva bilaterally. Cardiovascular: Normal S1-S2, no S3-S4, no murmurs. Respiratory: Lungs are diminished with BiPAP sounds Gastrointestinal: Abdomen is soft, nontender Musculoskeletal: There is no pedal edema. Skin: Skin is warm and dry - Labs CBC & Chem 7: 01/16/20 04:25 01/16/20 04:25 Labs: Abnormal Lab Results - Last 24 Hours (Table) 01/15/20 01/15/20 01/15/20 Range/Units 06:11 11:52 16:46 WBC (3.8-10.6) k/uL Plt Count (150-450) k/uL Neutrophils # (1.3-7.7) k/uL Lymphocytes # (1.0-4.8) k/uL ABG pCO2 (35-45) mmHg ABG pO2 (83-108) mmHg ABG O2 Saturation (94-97) % Sodium (137-145) mmol/L BUN (7-17) mg/dL Glucose (74-99) mg/dL POC Glucose (mg/dL) 169 H 130 H (75-99) mg/dL Ferritin (10.0-291.0) ng/mL Total Bilirubin (0.2-1.3) mg/dL AST (14-36) U/L C-Reactive Protein (<10.0) mg/L Total Protein (6.3-8.2) g/dL Albumin (3.5-5.0) g/dL Procalcitonin 0.34 H (0.02-0.09) ng/mL 01/15/20 01/16/20 01/16/20 Range/Units 20:43 04:25 04:25 WBC 14.5 H (3.8-10.6) k/uL Plt Count 61 L D (150-450) k/uL Neutrophils # 13.6 H (1.3-7.7) k/uL Lymphocytes # 0.5 L (1.0-4.8) k/uL ABG pCO2 (35-45) mmHg ABG pO2 (83-108) mmHg ABG O2 Saturation (94-97) % Sodium 134 L (137-145) mmol/L BUN 75 H (7-17) mg/dL Glucose 212 H (74-99) mg/dL POC Glucose (mg/dL) 154 H (75-99) mg/dL Ferritin 670.0 H (10.0-291.0) ng/mL Total Bilirubin 2.5 H (0.2-1.3) mg/dL AST 52 H (14-36) U/L C-Reactive Protein 72.1 H (<10.0) mg/L Total Protein 5.8 L (6.3-8.2) g/dL Albumin 2.7 L (3.5-5.0) g/dL Procalcitonin (0.02-0.09) ng/mL 01/16/20 01/16/20 Range/Units 06:27 08:28 WBC (3.8-10.6) k/uL Plt Count (150-450) k/uL Neutrophils # (1.3-7.7) k/uL Lymphocytes # (1.0-4.8) k/uL ABG pCO2 34 L (35-45) mmHg ABG pO2 66 L (83-108) mmHg ABG O2 Saturation 92.9 L (94-97) % Sodium (137-145) mmol/L BUN (7-17) mg/dL Glucose (74-99) mg/dL POC Glucose (mg/dL) 172 H (75-99) mg/dL Ferritin (10.0-291.0) ng/mL Total Bilirubin (0.2-1.3) mg/dL AST (14-36) U/L C-Reactive Protein (<10.0) mg/L Total Protein (6.3-8.2) g/dL Albumin (3.5-5.0) g/dL Procalcitonin (0.02-0.09) ng/mL Microbiology - Last 24 Hours (Table) 01/09/20 09:15 Blood Culture - Final Blood No Growth after 144 hours Assessment and Plan Assessment: This is a 79-year-old female with complex past medical history noted below who presented to the hospital with generalized fatigue and worsening shortness of breath. Patient was diagnosed with Covid19 I week ago prior to her presentation after she was tested approximately 2 weeks ago. She finished azithromycin course at home. Patient was evaluated in the ER and currently admitted to the hospital for further management of medical problems noted below. 1. Pulmonary embolism: Echocardiogram showed preserved EF with no evidence of right ventricular strain. Started on IV heparin and switched to Rivaroxaban 15 mg twice daily on 01/13 no switched to Lovenox on 01/15. Not a candidate for thrombolysis as there is no evidence of right ventricular strain, discussed with Dr. Qureshi 2. Covid19 pneumonia, positive test at an outside facility a week ago prior to the presentation. Repeat PCR here in the hospital was also positive.. started on dexamethasone 6 mg daily day #8/10. We will continue to monitor inflammatory markers. Pulmonary consulted for further evaluation, appreciate recom mendations. Patient was outside the window for Remdesivir but given her worsening her clinical status she was started on it currently day number 5/5. Continue zinc, melatonin, and vitamin C daily. s/p convalescent plasma on 01/13 3. New onset atrial fibrillation with rapid ventricular response, currently rate controlled. Thyroid function tests within normal range. Seen and evaluated by cardiology. Started metoprolol and Cardizem. Continue air sampling and monitoring. Patient already on anticoagulation secondary to PE. 4. Acute hypoxic respiratory failure secondary to #1 and 2. Bilateral tasneem undglass opacity most likely secondary to Covid19. Bacterial pneumonia appears to be less likely clinically. Pro-calcitonin only slightly elevated. 5. Severe sepsis without septic shock, secondary to Covid-19. Lactic acid is normal. Improved with IV fluid hydration. Blood culture negative to date. 6. Hypokalemia, replaced 7. 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 Questionable compliance. 8. Essential hypertension: Blood pressure within acceptable range. We will continue to monitor 9. CODE STATUS: Patient would like to be full code Today, I reviewed her medication list and lab work results. Continue ICU care. Check Lactic acid to assess respiratory fatigue and increased work of breathing. Patient is very close to be intubated. Her family were updated via phone call with the platform engineer. Patient remained in critical condition. Continue current regimen. Appreciate internet sales consultant's recommendations. Repeat lab work in the morning including inf lammatory markers
[2020-01-16 11:35] LABS: Glucose,Whole Blood 191 mg/dL (75-99)
[2020-01-16] MEDS: REMDESIVIR 100 MG in SODIUM CHLORIDE 0.9% 250 ML IVPB SCH (12:02)
[2020-01-16] MEDS ORDERED: propofoL 100 ML IV ONE (12:17)
[2020-01-16] MEDS ORDERED: PROPOFOL 10 MG/ML 20 ML VIAL IV ONE (12:40)
[2020-01-16] MEDS ORDERED: SUCCINYLCHOLINE CHLORIDE VIAL 200 MG/10 ML VIAL IV ONE (12:40)
[2020-01-16] MEDS ORDERED: NOREPINEPHRIN 4 MG-0.9% NS PMX 4 MG/250 ML ML IV ONE (13:30)
[2020-01-16 13:40] LABS: ABG Base Excess -6.5 mmol/L; ABG HCO3 19 mmol/L (21-25); ABG Oxygen Saturation 98.3 % (94-97); ABG PCO2 35 mmHg (35-45); ABG PH 7.34 (7.35-7.45); ABG PO2 113 mmHg (83-108); ABG TCO2 20 mmol/L (19-24)
[2020-01-16 13:41] LABS: Allen Test Performed? no
--- NOTE | 2020-01-16 13:52 | XR ---
EXAMINATION TYPE: XR chest 1V portable DATE OF EXAM: 01/16/2020 COMPARISON: 01/16/2020 INDICATION: Intubation, line placement TECHNIQUE: Single frontal view of the chest is obtained. FINDINGS: The heart size is normal. The pulmonary vasculature is prominent. There is diffuse patchy infiltrates bilaterally greater at the right lower lobe. Pattern distribution similar to prior examination. There is interval placement of an endotracheal tube with the tip above ollie. Nasogastric tube is be en placed with the tip in the gastroesophageal junction region at the level of the diaphragm. This sh ould be advanced approximately 10 cm. There is a right central venous catheter with the tip in the ri ght atrium. No pneumothorax is evident. IMPRESSION: 1. Diffuse patchy infiltrate through the bilateral lung phillips, stable from earlier exam. 2. Lines and catheters discussed above. 3. The nasogastric tube placement should be advanced approximately 10 cm.
[2020-01-16] MEDS: NOREPINEPHRINE 8 MG in SODIUM CHLORIDE 0.9% 250 ML IV SCH (14:16)
--- NOTE | 2020-01-16 14:33 | P.PN ---
Subjective Progress Note Date: 01/16/20 On today's evaluation of 01/12/2020, the patient is being seen in follow-up. As mentioned earlier, the patient was infected with jane virus Covid 19 and the patient had an acute Covid 19 related pneumonia with diffuse breath and pulmonary infiltrates. Subsequently, the patient had a CT angios of the chest that showed bilateral pulmonary infiltrates and groundglass opacities in addition to pulmonary embolism involving mainly the right-sided pulmonary artery branches. Filling defect in the right pulmonary artery and segmental branches in addition to that there is a mild component of strain pattern. Nevertheless, tachycardic and short and a ejection fraction of 6065% and the patient had no en largement of the right ventricle and there was no evidence of any pulmonary hypertension. Noted the patient oxidation is gradually gotten worse and currently the patient is on high flow oxygen at 6 L with an FiO2 of 85% and this was utilized to bring the saturation above 90%. The patient is on IV heparin with a therapeutic PTT of 58.7. Based on the acute jane virus Covid 19 infection, the patient had an LDH of 1455 and a CRP is at 47.9. The patient is having difficulty breathing with minimal amount of activity. Currently she is on bedrest. The patient has no pleurisy. No hemoptysis. Altered mentation. No other significant events overnight. Based on the worsening oxygenation, repe at chest x-ray was done and showed a patchy bilateral pulmonary infiltrates right more than left. No pleural effusion. The findings are essentially stable compared to yesterday's chest x-ray. On 01/13/2020, I'm seeing this patient for a follow-up. Overnight, the patient a chance to the intensive care unit as the patient was found to be getting progressively more hypoxic. This morning, the patient is a mild degree of respiratory distress. The patient is on airflow high flow oxygen which is set at 60 L and the patient is also wearing 100% nonrebreather facemask. Current pulse ox is around 93-94%. The patient remains on IV heparin regarding her pulmonary embolism. The patient is also on a combination of Decadron and Remdesivir regarding the jane virus Covid 19 related pneumonia. The chest x- ray still showing diffuse bilateral pulmonary infiltrates, essentially unchanged compared to yesterday, probably slightly worse compared to yesterday. The patient was also in atrial fibrillation. She was having episodes response. The patient was seen by cardiology and the patient's metoprolol dose was increased up to 50 mg by mouth twice a day. She has no complaints otherwise for now. She is afebrile. She is hemodynamic is stable. The white cell count of 10.2. Renal function is stable. Electrodes are within normal limits. On 01/14/2020, the patient is in the intensive care unit and the patient is being seen in follow-up regarding his Covid 19 related pneumonia. The patient remains in the 100% nonrebreather facemask addition to high flow oxygen 6 L with an FiO2 of 90%. The patient had a blood gas that showed a pH of 7.51 with a pCO2 of 29 and pO2 of 63. The patient is awake and alert. She does not seem to be a significant degree of respirator distress despite this profound hypoxemia. She remains in atrial fibrillation. At times she is going to the rapid shauna tricular response. She is on examination of Cardizem and metoprolol and a dose is being adjusted. The patient IV heparin and the patient will be switched back to Xarelto. Meanwhile, the patient is being treated for the Covid 19 related pneumonia with accommodation of Decadron and Remdesivir and the patient will be also started the on convalescent plasma if available. She is doing well. No specific complaints or issues otherwise on this patient for now. Her electrolytes are within normal limits. Her white cell count of 10.8 and hemoglobin of 14.8. PTT is therapeutic on today's evaluation. On 01/15/2020, I'm seeing the patient for a follow-up. The patient remains in the intensive care unit. Currently she is on high flow oxygen 60 L and her FiO2 is in the range of 90-91%. The patient is also utilizing occasionally 100% nonrebreather facemask to supplement her high flow oxygen and maintain a saturation above 90%. No chest pain. No pleurisy. No hemoptysis. She is on Xarelto regarding a pulmonary embolism. In regards to her jane virus Covid 19 infection, the patient is being treated with a combination of Decadron and Remdesivir and the patient also received 2 units of convalescent plasma. The chest x-ray findings are essentially stable. The patient has diffuse breath and pulmonary infiltrates which are essentially stable and unchanged compared to yesterday. Ferritin level is at 2, lower progressively blood work and electrodes are all within normal limits. The [place] [address] related to her Covid 19 infection. The patient remains in atrial fibrillation. She is on metoprolol 50 mg by mouth twice a day and the patient is also on Cardizem 60 mg by mouth 3 times a day for rate control. No altered mentation. No other complaints otherwise for now. On 01/16/2020, the patient is struggling with her breathing. Overnight, the patient developed progressive worsening shortness of breath. She was on 100% nonrebreather facemask in combination with high flow oxygen and she was barely able to maintain a saturation above 90%. Subsequently, she desaturated and I switched her to have BiPAP and was running at a pressure of 12/5 cm of water with an FiO2 of 100%. Her saturation was around 92%. Later on, in the afternoon, the patient decompensated and the patient became more hypoxic and also slept on the low 80s. At that point, I contacted the and it performed and above changes and I proceeded with intubation mechanical ventilation. This point in time, the patient is intubated and she is on a mechanical ventilator. Sedated and tidal volume of 400% FiO2 100% and PEEP of 12 and the blood gases showed a pH of 7.34 with a pCO2 of 35 and pO2 of 113. Chest x-ray showing diffuse breath and pulmonary infiltrates. The triple-lumen catheter was established in the right subclavian vein. Her T-max was 100.2. She remains in atrial fibrillation with occasional PVCs. Rate is controlled for now. Note that postintubation, the patient was started on propofol and she became hypotensive. She'll be receiving a total of 2 L of IV fluid in the maintenance normal saline at rate of 100 mL an hour. the patient has a ferritin level of 670. BUN is at 75 with attendant of 0.9. Liver function tests are essentially within normal limits. The patient was taken Xarelto regarding her pulmonary embolism. I will switch this patient to subcutaneous Lovenox therapeutic doses 1 mg per KG every 12 hours. Objective - Vital Signs Vital signs: Vital Signs Temp 98.7 F 01/16/20 08:00 Pulse 85 01/16/20 11:00 Resp 39 H 01/16/20 11:00 BP 123/87 01/16/20 11:00 Pulse Ox 94 L 01/16/20 11:00 Intake & Output 01/15/20 01/16/20 01/16/20 18:59 06:59 18:59 Intake Total 933 860 5518 Output Total 424 491 90 Balance 198 -131 1320 Weight 69.9 kg Intake: IV 635 931 5123 .9 @ KVO 210 120 10 Sodium Chloride 0.9% 1, 400 000 ml @ 100 mls/hr IV . Q10H [facility] Rx#:[id number] Sodium Chloride 0.9% 1, 1000 000 ml @ 999 mls/hr IV . Q1H1M [facility] Rx#:[id number] Oral 372 240 Tube Feeding 40 Output: Urine 420 490 90 Stool 4 1 Other: Voiding Method Indwelling Catheter Indwelling Catheter # Voids 2 - Exam GENERAL EXAM: Alert, very pleasant 79-year-old female patient which is currently intubated on a mechanical ventilator. Orogastric and orotracheal tube are both in place. HEAD: Normocephalic. EYES: Normal reaction of pupils, equal size. NOSE: Clear with pink turbinates. THROAT: No erythema or exudates. NECK: No masses, no JVD. A subclavian catheter was established on the right side.CHEST: No chest wall deformity. LUNGS: Equal air entry with scattered rhonchi., The patient is crackles lung bases bilaterally. CVS: S1 and S2 normal with no audible murmur, irregular rhythm. ABDOMEN: No hepatosplenomegaly, normal bowel sounds, no guarding or rigidity. SPINE: No scoliosis or deformity SKIN: No rashes CENTRAL NERVOUS SYSTEM: the patient is currently sedated, comfortable centimeters the mechanical ventilator. EXTREMITIES: There is no peripheral edema. No clubbing, no cyanosis. Peripheral pulses are intact. - Labs CBC & Chem 7: 01/16/20 04:25 01/16/20 04:25 Labs: Abnormal Lab Results - Last 24 Hours (Table) 01/15/20 01/15/20 01/15/20 Range/Units 06:11 16:46 20:43 WBC (3.8-10.6) k/uL Plt Count (150-450) k/uL Neutrophils # (1.3-7.7) k/uL Lymphocytes # (1.0-4.8) k/uL ABG pH (7.35-7.45) ABG pCO2 (35-45) mmHg ABG pO2 (83-108) mmHg ABG HCO3 (21-25) mmol/L ABG O2 Saturation (94-97) % Sodium (137-145) mmol/L BUN (7-17) mg/dL Glucose (74-99) mg/dL POC Glucose (mg/dL) 130 H 154 H (75-99) mg/dL Ferritin (10.0-291.0) ng/mL Total Bilirubin (0.2-1.3) mg/dL AST (14-36) U/L C-Reactive Protein (<10.0) mg/L Total Protein (6.3-8.2) g/dL Albumin (3.5-5.0) g/dL Procalcitonin 0.34 H (0.02-0.09) ng/mL 01/16/20 01/16/20 01/16/20 Range/Units 04:25 04:25 06:27 WBC 14.5 H (3.8-10.6) k/uL Plt Count 61 L D (150-450) k/uL Neutrophils # 13.6 H (1.3-7.7) k/uL Lymphocytes # 0.5 L (1.0-4.8) k/uL ABG pH (7.35-7.45) ABG pCO2 (35-45) mmHg ABG pO2 (83-108) mmHg ABG HCO3 (21-25) mmol/L ABG O2 Saturation (94-97) % Sodium 134 L (137-145) mmol/L BUN 75 H (7-17) mg/dL Glucose 212 H (74-99) mg/dL POC Glucose (mg/dL) 172 H (75-99) mg/dL Ferritin 670.0 H (10.0-291.0) ng/mL Total Bilirubin 2.5 H (0.2-1.3) mg/dL AST 52 H (14-36) U/L C-Reactive Protein 72.1 H (<10.0) mg/L Total Protein 5.8 L (6.3-8.2) g/dL Albumin 2.7 L (3.5-5.0) g/dL Procalcitonin (0.02-0.09) ng/mL 01/16/20 01/16/20 01/16/20 Range/Units 08:28 11:34 13:38 WBC (3.8-10.6) k/uL Plt Count (150-450) k/uL Neutrophils # (1.3-7.7) k/uL Lymphocytes # (1.0-4.8) k/uL ABG pH 7.34 L (7.35-7.45) ABG pCO2 34 L (35-45) mmHg ABG pO2 66 L 113 H (83-108) mmHg ABG HCO3 19 L (21-25) mmol/L ABG O2 Saturation 92.9 L 98.3 H (94-97) % Sodium (137-145) mmol/L BUN (7-17) mg/dL Glucose (74-99) mg/dL POC Glucose (mg/dL) 191 H (75-99) mg/dL Ferritin (10.0-291.0) ng/mL Total Bilirubin (0.2-1.3) mg/dL AST (14-36) U/L C-Reactive Protein (<10.0) mg/L Total Protein (6.3-8.2) g/dL Albumin (3.5-5.0) g/dL Procalcitonin (0.02-0.09) ng/mL Microbiology - Last 24 Hours (Table) 01/09/20 09:15 Blood Culture - Final Blood No Growth after 144 hours Assessment and Plan Plan: 1 acute hypoxic respiratory failure predominantly secondary to Covid 19 related pneumonia and there is also some contribution to her hypoxemia because of the pulmonary embolism. The predominant factor contributing to respiratory failure is Covid 19 related pneumonia as the patient developed diffuse breath and pulmonary infiltrates with progressive hypoxemia despite ongoing treatment. For now the patient on anticoagulants. The patient is also receiving antiviral treatment and steroids regarding the Covid 19 related pneumonia. She developed progressive hypoxemia overnight and the patient had to be intubated this afternoon and she is currently on a mechanical ventilator. Chest x-ray was noted. Blood gases was noted. Ventilator changes was done. 2 acute right-sided pulmonary embolism, probably related to Covid 19 related hypercoagulability.The patient is on Xarelto which will be switched to Lovenox 3 Covid 19 related pneumonia 4 new onset atrial fibrillation with RVR, currently on Xarelto, The patient is also on metoprolol for rate control, in addition to Cardizem at a dose of 60 mg 3 times a day and metoprolol is running at a dose of 50 mg twice a day. Note that the patient became hypotensive post intubation the patient will require some IV fluids and possibly some pressors. 5 hypertension 6 remote history of DVT and the patient was taken Xarelto on outpatient basis 7 hypertension plan Continue ventilator support and consider ventilator changes will be done based on the blood gases. Wean down the FiO2 to maintain saturation above 90% Continue the course of Decadron 6 mg , Remdesivir per protocol in addition to the rest of the supplements including vitamin C, vitamin D, melatonin, Pepcid and zinc The patient received a unit of convalescent plasma. Discontinue Xarelto and switch this patient to Lovenox therapeutic dose 1 mg per KG every 12 hours. The patient will be receiving 70 mg every 12 hours. Metoprolol for rate control and is a 50 mg by mouth twice a day. Continue Cardizem for rate control and adjust the dose for about heart rate control , currently at 60 mg by mouth 3 times a day. Nevertheless the patient is currently hypotensive post intubation. The patient is currently on sedation. The patient will require IV fluids. The patient will be given a total of 2 L of IV fluids boluses and possibly pressors and if remains hypotensive, the beta blockers and the calcium channel blockers will be placed on hold. Initiate enteral feeding for nutritional support May consider repeating the CAT scan to reevaluate the status of the pulmonary embolism at a later stage monitor inflammatory markers Condition is critical we'll continue to follow. The patient be kept in the intensive care unit for now.This is a critically care evaluation that was done and more than 30 minutes. Time with Patient: Greater than 30
--- NOTE | 2020-01-16 14:34 | P.PCN ---
Date of Procedure: 01/16/20 Preoperative Diagnosis: Acute hypoxic respiratory failure, pneumonia Postoperative Diagnosis: Acute hypoxic respiratory failure, pneumonia Procedure(s) Performed: Insertion of a triple-lumen catheter Anesthesia: local Surgeon: David Johnson Estimated Blood Loss (ml): 5 Pathology: none sent Condition: critical Disposition: ICU Operative Findings: Indication: Hemodynamic monitoring/Intravenous access. A time-out was completed verifying correct patient, procedure, site, posi tioning, and implant(s) or special equipment if applicable. The patient was placed in a dependent position appropriate for central line placement based on the vein to be cannulated. The patients right chest was prepped and draped in sterile fashion. 1% Lidocaine was used to anesthetize the surrounding skin area. A triple lumen 9F Cordis catheter was introduced into the [right subclavian vein using Seldinger technique. The catheter was threaded smoothly over the guide wire and appropriate blood return was obtained. Each lumen of the catheter was evacuated of air and flushed with sterile saline. The catheter was then sutured in place to the skin and a sterile dressing applied. Perfusion to the extremity distal to the point of catheter insertion was checked and found to be adequate. The patient tolerated the procedure well and there were no complications.
[2020-01-16 16:35] LABS: Glucose,Whole Blood 158 mg/dL (75-99)
[2020-01-16 17:05] LABS: HCT 34.1 % (34.0-46.0); MCH 30.7 pg (25.0-35.0); MCHC 33.4 g/dL (31.0-37.0); MCV 92.1 fL (80.0-100.0); Mean Platelet Volume 9.9; RDW 13.6 % (11.5-15.5); WBC 14.4 k/uL (3.8-10.6)
[2020-01-16 17:08] LABS: Platelet Count 44 k/uL (150-450)
[2020-01-16 17:09] LABS: HGB 11.4 gm/dL (11.4-16.0)
[2020-01-16] MEDS ORDERED: ENOXAPARIN 80 MG/0.8 ML SYRINGE SQ SCH (18:00)
[2020-01-16] MEDS: dexAMETHasone 2 MG TAB PO SCH (20:56)
[2020-01-16] MEDS: CHLORHEXIDINE GLUCONATE 15 ML CUP MUCOUS MEM SCH (20:56)
[2020-01-16] MEDS: MELATONIN 5 MG TABLET PO SCH (20:56)
[2020-01-17 00:02] LABS: Glucose,Whole Blood 150 mg/dL (75-99)
[2020-01-17] MEDS ORDERED: DILTIAZEM 125 MG in SODIUM CHLORIDE 0.9% 100 ML IV SCH (00:15)
[2020-01-17] MEDS: INSULIN ASPART (NovoLOG) 100 UNIT/ML VIAL SQ SCH ×5 (00:18→23:18)
[2020-01-17 03:52] LABS: Basophils # (A) 0.1 k/uL (0-0.2); Basophils % (A) 0 %; Eosinophils % (A) 0 %; HCT 37.7 % (34.0-46.0); HGB 12.4 gm/dL (11.4-16.0); Lymphocytes # (A) 0.5 k/uL (1.0-4.8); Lymphocytes % (A) 3 %; MCH 30.8 pg (25.0-35.0); MCHC 32.9 g/dL (31.0-37.0); MCV 93.8 fL (80.0-100.0); Mean Platelet Volume 10.5; Monocytes # (A) 0.5 k/uL (0-1.0); Monocytes % (A) 2 %; Neutrophils # (A) 18.2 k/uL (1.3-7.7); Neutrophils % (A) 94 %; RBC 4.02 m/uL (3.80-5.40); RDW 13.8 % (11.5-15.5); WBC 19.4 k/uL (3.8-10.6)
[2020-01-17] MEDS: NOREPINEPHRINE 8 MG in SODIUM CHLORIDE 0.9% 250 ML IV SCH ×3 (03:52→17:18)
[2020-01-17] MEDS: SODIUM CHLORIDE 0.9% 1,000 ML IV SCH (03:53)
[2020-01-17 04:03] LABS: C Reactive Protein 67.9 mg/L (<10.0); Calcium 7.9 mg/dL (8.4-10.2); Total Protein 4.7 g/dL (6.3-8.2)
[2020-01-17 04:12] LABS: Creatine Kinase MB 0.7 ng/mL (0.0-2.4); D-Dimer 34.11 mg/L FEU (<0.60); Troponin I 0.017 ng/mL (0.000-0.034)
[2020-01-17 05:22] LABS: Glucose,Whole Blood 192 mg/dL (75-99)
[2020-01-17 05:46] LABS: ABG Base Excess -13.7 mmol/L; ABG HCO3 15 mmol/L (21-25); ABG Oxygen Saturation 97.8 % (94-97); ABG PCO2 41 mmHg (35-45); ABG PO2 108 mmHg (83-108); ABG TCO2 16 mmol/L (19-24); Allen Test Performed? Yes
[2020-01-17 05:52] LABS: ABG PH 7.16 (7.35-7.45)
[2020-01-17 07:30] LABS: Platelet Count 67 k/uL (150-450)
--- NOTE | 2020-01-17 07:48 | XR ---
EXAMINATION TYPE: XR chest 1V portable DATE OF EXAM: 01/17/2020 COMPARISON: 01/16/2020 HISTORY: SOB, Follow Up FINDINGS: Endotracheal tube, NG tube and right subclavian central venous line are all well-positioned. No evide nce for pneumothorax. Diffuse infiltrates throughout the right lung persist as well as left upper lobe infiltrate. Stable appearance of the cardio-mediastinal structures at this time. Pleural effusion unchanged. IMPRESSION: 1. Diffuse infiltrates throughout the right lung persist as well as left upper lobe infiltrate. Clin ical correlation and follow up until resolution is recommended.
[2020-01-17] MEDS: ALBUTEROL HFA INHALER INHALATION SCH ×4 (08:09→20:55)
[2020-01-17] MEDS ORDERED: SODIUM BICARB 8.4% 50 ML SYR (1 MEQ/ML) IV STA (08:32)
[2020-01-17] MEDS ORDERED: SODIUM CHLORIDE 0.9% 1,000 ML IV ONE ×2 (08:33→11:32)
[2020-01-17] MEDS ORDERED: WATER FOR INJECTION, STERILE 1,000 ML with SODIUM ACETATE 150 MEQ IV SCH ×2 (08:45)
[2020-01-17] MEDS: METOPROLOL TARTRATE 50 MG TAB PO SCH ×2 (08:51→19:56)
[2020-01-17] MEDS: ASCORBIC ACID 500 MG TAB PO SCH (08:55)
[2020-01-17] MEDS: CHOLECALCIFEROL 1,000 UNIT TAB PO SCH (08:55)
[2020-01-17] MEDS: CHLORHEXIDINE GLUCONATE 15 ML CUP MUCOUS MEM SCH ×2 (08:55→19:55)
[2020-01-17] MEDS: ZINC SULFATE 220 MG CAP PO SCH (08:56)
[2020-01-17] MEDS: FAMOTIDINE 20 MG TAB PO SCH (08:56)
[2020-01-17] MEDS ORDERED: ENOXAPARIN 80 MG/0.8 ML SYRINGE SQ SCH (09:00)
[2020-01-17] MEDS ORDERED: CEFEPIME 2 GM in SODIUM CHLORIDE 0.9% 100 ML IVPB SCH (09:00)
[2020-01-17] MEDS ORDERED: CEFEPIME 1 GM in SODIUM CHLORIDE 0.9% 50 ML IVPB ONE (09:00)
[2020-01-17] MEDS: DEXTROSE 5% IN WATER 1,000 ML with SODIUM BICARB (1 MEQ/ML) 150 ML IV SCH ×2 (09:06→17:18)
--- NOTE | 2020-01-17 11:22 | P.NPCON ---
History of Present Illness - Reason for Consult acute renal failure - History of Present Illness Reason for consultation: Acute kidney injury History of present illness: Patient is a 79-year-old female seen in consultation for acute kidney injury. Patient's baseline creatinine is 1 and is up to 1.47 today. Patient presented to the hospital in January 08 due to being tested positive for Covid 19 and s ome weakness. She also had a CTA done on January 08 which was positive for pulmonary embolus. She also has history of DVT but had apparently stopped her anticoagulation outpatient. On January 09 patient went into A. fib with RVR and was also short of breath. She was given oxygen supplementation which improved her respiratory status. She is currently maintained on Lovenox. With worsening shortness of breath patient was intubated and is currently in the ICU. She is requiring Levophed. Her CVP was low and she received 4 L of IV fluid yesterday and 2 L today. She is currently maintained on bicarb drip running at 1 25 mL an hour. ABG from this morning was suggestive of metabolic acidosis. She is maintained on antibiotics for possible pneumonia as well as steroids and zinc for Covid 19. She also received remdesivir this admission. Patient's urine output is about 5-10 mL an hour. She is currently on 60% FiO2. Vital signs are stable. On vasopressor support. Stable heart rhythm on the monitor. No gross abdominal distention noted. No gross edema noted. Exam discussed with the nurse. Past Medical History Past Medical History: Deep Vein Thrombosis (DVT) History of Any Multi-Drug Resistant Organisms: None Reported Past Surgical History: No Surgical Hx Reported Past Psychological History: No Psychological Hx Reported Smoking Status: Never smoker Past Alcohol Use History: None Reported Past Drug Use History: None Reported - Past Family History Father Family Medical History: Coronary Artery Disease (CAD) Mother Family Medical History: Cancer Medications and Allergies Home Medications Medication Instructions Recorded Confirmed Type Rivaroxaban [Xarelto] 20 mg PO DAILY 01/09/20 01/09/20 History amLODIPine [Norvasc] 5 mg PO DAILY 01/09/20 01/09/20 History Allergies Allergy/AdvReac Type Severity Reaction Status Date / Time lisinopril Allergy Swelling Verified 01/09/20 09:44 Physical Exam Vitals: Vital Signs Temp Pulse Resp BP Pulse Ox 01/17/20 09:00 89 20 96 01/17/20 08:30 87 15 95 01/17/20 08:00 98.2 F 86 16 95 01/17/20 07:30 84 16 95 01/17/20 07:00 83 17 96 01/17/20 06:30 81 21 96 01/17/20 06:00 82 16 93 L 01/17/20 05:30 82 18 93 L 01/17/20 05:00 80 14 94 L 01/17/20 04:30 105 H 16 96 01/17/20 04:00 96.4 F L 116 H 20 93 L 01/17/20 03:30 117 H 19 95 01/17/20 03:00 114 H 20 96 01/17/20 02:30 124 H 22 96 01/17/20 02:00 131 H 19 96 01/17/20 01:30 138 H 21 96 01/17/20 01:00 129 H 22 96 01/17/20 00:45 138 H 24 95 01/17/20 00:30 141 H 24 95 01/17/20 00:15 146 H 23 96 01/17/20 00:00 96.6 F L 149 H 16 95 01/16/20 23:45 133 H 19 95 01/16/20 23:30 112 H 20 98 20 23:15 109 H 24 98 01/16/20 23:00 105 H 27 H 96 20 22:45 100 27 H 97 01/16/20 22:30 105 H 29 H 97 2020 22:15 95 28 H 97 01/16/20 22:00 111 H 22 95 20 21:45 102 H 26 H 89 L 01/16/20 21:30 105 H 24 95 2020 21:15 112 H 28 H 96 2020 21:00 109 H 30 H 95 2020 20:45 111 H 32 H 96 2020 20:30 99 33 H 96 2020 20:15 93 30 H 95 2020 20:00 96.4 F L 93 26 H 96 2020 19:45 98 26 H 96 2020 19:30 104 H 24 96 2020 19:15 96 25 H 95 20 19:00 95 27 H 95 01/16/20 18:45 108 H 27 H 95 01/16/20 18:30 89 31 H 95 01/16/20 18:15 88 28 H 95 01/16/20 18:00 98 32 H 94 L 01/16/20 17:45 87 29 H 96 01/16/20 17:30 94 25 H 97 01/16/20 17:15 94 26 H 97 01/16/20 17:00 83 29 H 98 01/16/20 16:45 88 25 H 98 01/16/20 16:30 85 27 H 99 01/16/20 16:15 84 34 H 97 01/16/20 16:00 99.0 F 71 26 H 99 01/16/20 15:45 80 30 H 112/79 99 01/16/20 15:30 93 28 H 100 01/16/20 15:15 86 26 H 75/58 100 01/16/20 15:00 74 31 H 99 01/16/20 14:45 71 28 H 87/68 98 01/16/20 14:30 75 28 H 97 01/16/20 14:15 73 30 H 70/54 97 01/16/20 14:00 77 28 H 96 01/16/20 13:45 28 H 77/59 97 01/16/20 13:30 16 95 01/16/20 13:15 87 16 103/80 96 01/16/20 13:00 83 16 94/68 92 L 01/16/20 12:45 80 16 82/65 73 L 01/16/20 12:30 71 40 H 89 L 01/16/20 12:15 81 42 H 113/87 84 L 01/16/20 12:00 98.9 F 62 26 H 112/90 84 L Intake and Output 01/16/20 01/17/20 01/17/20 22:59 06:59 14:59 Intake Total 3672.814 2.391 1313.28 Output Total 163 95 10 Balance 3509.814 391 1303.28 Intake: IV 3500 1900 100 Sodium Chloride 0.9% 1, 500 900 100 000 ml @ 100 mls/hr IV . Q10H [facility] Rx#:[id number] Sodium Chloride 0.9% 1, 3000 1000 000 ml @ 999 mls/hr IV . Q1H1M [facility] Rx#:[id number] Intake, IV Titration 172.814 823.486 6529.28 Amount Dextrose 5% in Water 1, 125 000 ml @ 125 mls/hr IV . Q9H12M [facility] with Sodium Bicarb (1 Meq/ml) 150 ml Rx#:[id number] Diltiazem 125 mg In 44.000 Sodium Chloride 0.9% 100 ml @ Per Protocol IV .Q0M [facility] Rx#:[id number] Norepinephrine 8 mg In 72.814 168.391 Sodium Chloride 0.9% 250 ml @ 0.05 MCG/KG/MIN 6. 763 mls/hr IV .Q24H [facility] Rx#:[id number] Sodium Chloride 0.9% 1, 1000 000 ml @ 999 mls/hr IV . Q1H1M [facility] Rx#:[id number] propofoL 1,000 mg In 100 88.28 Empty Bag 1 bag @ Titrate IV .Q0M [facility] Rx#: [id number] Output: Urine 160 95 10 Stool 3 Other: Voiding Method Indwelling Catheter Indwelling Catheter Indwelling Catheter # Voids 2 Weight 77.1 kg ABP, PAP, CO, CI - Last 8 Hours Arterial Blood Pressure 105/55 Arterial Blood Pressure 104/54 Arterial Blood Pressure 100/53 Arterial Blood Pressure 102/55 Arterial Blood Pressure 101/55 Arterial Blood Pressure 102/55 Arterial Blood Pressure 105/59 Arterial Blood Pressure 101/60 Arterial Blood Pressure 117/65 Arterial Blood Pressure 104/67 Arterial Blood Pressure 88/59 Arterial Blood Pressure 89/56 Results - Lab Results Most recent lab results ABG pH 7.16 (7.35-7.45) L* 01/17/20 05:40 ABG pCO2 41 mmHg (35-45) 01/17/20 05:40 ABG pO2 108 mmHg (83-108) 01/17/20 05:40 ABG HCO3 15 mmol/L (21-25) L 01/17/20 05:40 ABG O2 Saturation 97.8 % (94-97) H 01/17/20 05:40 Calcium 7.9 mg/dL (8.4-10.2) L 01/17/20 03:28 Magnesium 2.0 mg/dL (1.6-2.3) 01/17/20 03:28 01/17/20 03:28 11/21/20 03:28 Assessment and Plan Plan: Assessment: 1. Acute kidney injury secondary to ATN secondary to septic shock. Baseline creatinine 1 and is up to 1.47 today. Oliguric. 2. Metabolic acidosis secondary to acute kidney injury. 3. Septic shock secondary to COVID-19 maintained on steroids and zinc. On levophed. Status post remdesivir. 4. PE maintained on anticoagulation. 5. A. fib with RVR maintained on Lopressor. Currently rate controlled. Cardiology following. Plan: Maintain bicarb drip. Receiving 2 L of normal saline bolus today. Wean FiO2 and vasopressors. Continue to monitor renal function and urine output. If remains oliguric over the next 4-6 hours, I will give her Lasix 80 mg IV once. Continue to assess daily for need for renal placement therapy. Thank you for the consultation. I will continue to follow the patient with you during her hospital stay.
--- NOTE | 2020-01-17 11:30 | P.PN ---
Subjective Progress Note Date: 01/17/20 Patient is sedated and intubated. Nursing staff informed me that she is making minimal urine less than 5 mL per hour. She was started on vasopressors last night. Objective - Vital Signs Vital signs: Vital Signs Temp 98.2 F 01/17/20 08:00 Pulse 89 01/17/20 09:00 Resp 20 01/17/20 09:00 BP 112/79 01/16/20 15:45 Pulse Ox 96 01/17/20 09:00 Intake & Output 01/16/20 01/17/20 01/17/20 18:59 06:59 18:59 Intake Total 4176.795 3568.410 1313.28 Output Total 192 217 10 Balance 3984.795 3351.410 1303.28 Weight 77.1 kg Intake: IV 4160 3200 100 .9 @ KVO 10 Remdesivir (Eua) 100 mg 250 In Sodium Chloride 0.9% 250 ml @ 250 mls/hr IVPB Q24H [facility] Rx#:[id number] Sodium Chloride 0.9% 1, 900 1200 100 000 ml @ 100 mls/hr IV . Q10H [facility] Rx#:[id number] Sodium Chloride 0.9% 1, 3000 2000 000 ml @ 999 mls/hr IV . Q1H1M ONE Rx#:[id number] Intake, IV Titration 16.795 269.349 2598.28 Amount Dextrose 5% in Water 1, 125 000 ml @ 125 mls/hr IV . Q9H12M [facility] with Sodium Bicarb (1 Meq/ml) 150 ml Rx#:[id number] Diltiazem 125 mg In 44.000 Sodium Chloride 0.9% 100 ml @ Per Protocol IV .Q0M [facility] Rx#:[id number] Norepinephrine 8 mg In 16.795 224.410 Sodium Chloride 0.9% 250 ml @ 0.05 MCG/KG/MIN 6. 763 mls/hr IV .Q24H [facility] Rx#:[id number] Sodium Chloride 0.9% 1, 1000 000 ml @ 999 mls/hr IV . Q1H1M ONE Rx#:[id number] propofoL 1,000 mg In 100 88.28 Empty Bag 1 bag @ Titrate IV .Q0M [facility] Rx#: [id number] Output: Urine 190 215 10 Stool 2 2 Other: Voiding Method Indwelling Catheter Indwelling Catheter Indwelling Catheter # Voids 2 ABP, PAP, CO, CI - Last Documented Arterial Blood Pressure 105/55 - Exam General: The patient is sedated and intubated Eye: there is normal conjunctiva bilaterally. Neck: The neck is supple, there is no JVD. Cardiovascular: Normal S1-S2, no S3-S4, no murmurs. Respiratory: Lungs with mechanical ventilator sounds Gastrointestinal: Abdomen is soft, nontender Musculoskeletal: There is no pedal edema. Skin: Skin is warm and dry - Labs CBC & Chem 7: 01/17/20 03:28 01/17/20 03:28 Labs: Abnormal Lab Results - Last 24 Hours (Table) 01/16/20 01/16/20 01/16/20 Range/Units 11:34 13:38 16:33 WBC (3.8-10.6) k/uL RBC (3.80-5.40) m/uL Plt Count (150-450) k/uL Neutrophils # (1.3-7.7) k/uL Lymphocytes # (1.0-4.8) k/uL Fibrinogen (200-500) mg/dL D-Dimer (<0.60) mg/L FEU ABG pH 7.34 L (7.35-7.45) ABG pO2 113 H (83-108) mmHg ABG HCO3 19 L (21-25) mmol/L ABG Total CO2 (19-24) mmol/L ABG O2 Saturation 98.3 H (94-97) % Chloride (98-107) mmol/L Carbon Dioxide (22-30) mmol/L BUN (7-17) mg/dL Creatinine (0.52-1.04) mg/dL Glucose (74-99) mg/dL POC Glucose (mg/dL) 191 H 158 H (75-99) mg/dL Calcium (8.4-10.2) mg/dL Ferritin (10.0-291.0) ng/mL C-Reactive Protein (<10.0) mg/L Total Protein (6.3-8.2) g/dL Albumin (3.5-5.0) g/dL 01/16/20 01/17/20 01/17/20 Range/Units 16:40 00:01 03:28 WBC 14.4 H 19.4 H (3.8-10.6) k/uL RBC 3.70 L (3.80-5.40) m/uL Plt Count 44 L 67 L D (150-450) k/uL Neutrophils # 18.2 H (1.3-7.7) k/uL Lymphocytes # 0.5 L (1.0-4.8) k/uL Fibrinogen (200-500) mg/dL D-Dimer (<0.60) mg/L FEU ABG pH (7.35-7.45) ABG pO2 (83-108) mmHg ABG HCO3 (21-25) mmol/L ABG Total CO2 (19-24) mmol/L ABG O2 Saturation (94-97) % Chloride (98-107) mmol/L Carbon Dioxide (22-30) mmol/L BUN (7-17) mg/dL Creatinine (0.52-1.04) mg/dL Glucose (74-99) mg/dL POC Glucose (mg/dL) 150 H (75-99) mg/dL Calcium (8.4-10.2) mg/dL Ferritin (10.0-291.0) ng/mL C-Reactive Protein (<10.0) mg/L Total Protein (6.3-8.2) g/dL Albumin (3.5-5.0) g/dL 01/17/20 01/17/20 01/17/20 Range/Units 03:28 03:28 05:20 WBC (3.8-10.6) k/uL RBC (3.80-5.40) m/uL Plt Count (150-450) k/uL Neutrophils # (1.3-7.7) k/uL Lymphocytes # (1.0-4.8) k/uL Fibrinogen 133 L (200-500) mg/dL D-Dimer 34.11 H (<0.60) mg/L FEU ABG pH (7.35-7.45) ABG pO2 (83-108) mmHg ABG HCO3 (21-25) mmol/L ABG Total CO2 (19-24) mmol/L ABG O2 Saturation (94-97) % Chloride 117 H (98-107) mmol/L Carbon Dioxide 16 L (22-30) mmol/L BUN 81 H (7-17) mg/dL Creatinine 1.47 H (0.52-1.04) mg/dL Glucose 191 H (74-99) mg/dL POC Glucose (mg/dL) 192 H (75-99) mg/dL Calcium 7.9 L (8.4-10.2) mg/dL Ferritin 747.0 H (10.0-291.0) ng/mL C-Reactive Protein 67.9 H (<10.0) mg/L Total Protein 4.7 L (6.3-8.2) g/dL Albumin 2.0 L (3.5-5.0) g/dL 01/17/20 Range/Units 05:40 WBC (3.8-10.6) k/uL RBC (3.80-5.40) m/uL Plt Count (150-450) k/uL Neutrophils # (1.3-7.7) k/uL Lymphocytes # (1.0-4.8) k/uL Fibrinogen (200-500) mg/dL D-Dimer (<0.60) mg/L FEU ABG pH 7.16 L* (7.35-7.45) ABG pO2 (83-108) mmHg ABG HCO3 15 L (21-25) mmol/L ABG Total CO2 16 L (19-24) mmol/L ABG O2 Saturation 97.8 H (94-97) % Chloride (98-107) mmol/L Carbon Dioxide (22-30) mmol/L BUN (7-17) mg/dL Creatinine (0.52-1.04) mg/dL Glucose (74-99) mg/dL POC Glucose (mg/dL) (75-99) mg/dL Calcium (8.4-10.2) mg/dL Ferritin (10.0-291.0) ng/mL C-Reactive Protein (<10.0) mg/L Total Protein (6.3-8.2) g/dL Albumin (3.5-5.0) g/dL Assessment and Plan Assessment: This is a 79-year-old female with complex past medical history noted below who presented to the hospital with generalized fatigue and worsening shortness of breath. Patient was diagnosed with Covid19 I week ago prior to her presentation after she was tested approximately 2 weeks ago. She finished azithromycin course at home. Patient was evaluated in the ER and currently admitted to the hospital for further management of medical problems noted below. 1. Pulmonary embolism: Echocardiogram showed preserved EF with no evidence of right ventricular strain. Started on IV heparin and switched to Rivaroxaban 15 mg twice daily on 01/13 no switched to Lovenox on 01/15. Not a candidate for thrombolysis as there is no evidence of right ventricular strain, discussed with Dr. Qureshi 2. Covid19 pneumonia, positive test at an outside facility a week ago prior to the presentation. Repeat PCR here in the hospital was also positive. started on dexamethasone 6 mg daily day #9/. We will continue to monitor inflammatory markers. Pulmonary consulted for further evaluation, appreciate recommendations. Finish 10 days of ear course on 01/15. Continue zinc, melatonin, and vitamin C daily. s/p convalescent plasma on 01/13 3. New onset atrial fibrillation with rapid ventricular response, currently rate controlled. Thyroid function tests within normal range. Seen and evaluated by cardiology. Started metoprolol and Cardizem. Continue telemetry m onitor. Patient already on anticoagulation secondary to PE. 4. Acute hypoxic respiratory failure secondary to #1 and 2. Requiring intubation and mechanical ventilation on 01/15. Bilateral groundglass opacity most likely secondary to Covid19. Started on IV cefepime on 01/15 for possible superimposed bacterial pneumonia 5. Severe sepsis with septic shock on 01/15 requiring vasopressors, secondary to Covid-19. Lactic acid is normal. Improved with IV fluid hydration. Blood culture negative to date. 6. Acute kidney injury, oliguric. Nephrology consulted for further management. 7. 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 8. Essential hypertension 9. CODE STATUS: Patient would like to be full code Today, I reviewed her medication list and lab work results. Continue ICU care. Patient remained in critical condition. Continue current regimen. Appreciate [facility] consultant's recommendations. Repeat lab work in the morning including inflammatory markers Vent management per ICU team.
[2020-01-17 12:02] LABS: Glucose,Whole Blood 178 mg/dL (75-99)
[2020-01-17 12:30] LABS: ABG Base Excess -10.6 mmol/L; ABG HCO3 17 mmol/L (21-25); ABG Oxygen Saturation 98.5 % (94-97); ABG PCO2 41 mmHg (35-45); ABG PH 7.22 (7.35-7.45); ABG PO2 106 mmHg (83-108); ABG TCO2 18 mmol/L (19-24); Allen Test Performed? Yes
[2020-01-17 12:53] LABS: Calcium 7.4 mg/dL (8.4-10.2); Potassium 4.8 mmol/L (3.5-5.1)
--- NOTE | 2020-01-17 15:41 | P.PN ---
Subjective Progress Note Date: 01/17/20 On today's evaluation of 01/12/2020, the patient is being seen in follow-up. As mentioned earlier, the patient was infected with jane virus Covid 19 and the patient had an acute Covid 19 related pneumonia with diffuse breath and pulmonary infiltrates. Subsequently, the patient had a CT angios of the chest that showed bilateral pulmonary infiltrates and groundglass opacities in addition to pulmonary embolism involving mainly the right-sided pulmonary artery branches. Filling defect in the right pulmonary artery and segmental branches in addition to that there is a mild component of strain pattern. Nevertheless, tachycardic and short and a ejection fraction of 6065% and the patient had no en largement of the right ventricle and there was no evidence of any pulmonary hypertension. Noted the patient oxidation is gradually gotten worse and currently the patient is on high flow oxygen at 6 L with an FiO2 of 85% and this was utilized to bring the saturation above 90%. The patient is on IV heparin with a therapeutic PTT of 58.7. Based on the acute jane virus Covid 19 infection, the patient had an LDH of 1455 and a CRP is at 47.9. The patient is having difficulty breathing with minimal amount of activity. Currently she is on bedrest. The patient has no pleurisy. No hemoptysis. Altered mentation. No other significant events overnight. Based on the worsening oxygenation, repe at chest x-ray was done and showed a patchy bilateral pulmonary infiltrates right more than left. No pleural effusion. The findings are essentially stable compared to yesterday's chest x-ray. On 01/13/2020, I'm seeing this patient for a follow-up. Overnight, the patient a chance to the intensive care unit as the patient was found to be getting progressively more hypoxic. This morning, the patient is a mild degree of respiratory distress. The patient is on airflow high flow oxygen which is set at 60 L and the patient is also wearing 100% nonrebreather facemask. Current pulse ox is around 93-94%. The patient remains on IV heparin regarding her pulmonary embolism. The patient is also on a combination of Decadron and Remdesivir regarding the jane virus Covid 19 related pneumonia. The chest x- ray still showing diffuse bilateral pulmonary infiltrates, essentially unchanged compared to yesterday, probably slightly worse compared to yesterday. The patient was also in atrial fibrillation. She was having episodes response. The patient was seen by cardiology and the patient's metoprolol dose was increased up to 50 mg by mouth twice a day. She has no complaints otherwise for now. She is afebrile. She is hemodynamic is stable. The white cell count of 10.2. Renal function is stable. Electrodes are within normal limits. On 01/14/2020, the patient is in the intensive care unit and the patient is being seen in follow-up regarding his Covid 19 related pneumonia. The patient remains in the 100% nonrebreather facemask addition to high flow oxygen 6 L with an FiO2 of 90%. The patient had a blood gas that showed a pH of 7.51 with a pCO2 of 29 and pO2 of 63. The patient is awake and alert. She does not seem to be a significant degree of respirator distress despite this profound hypoxemia. She remains in atrial fibrillation. At times she is going to the rapid shauna tricular response. She is on examination of Cardizem and metoprolol and a dose is being adjusted. The patient IV heparin and the patient will be switched back to Xarelto. Meanwhile, the patient is being treated for the Covid 19 related pneumonia with accommodation of Decadron and Remdesivir and the patient will be also started the on convalescent plasma if available. She is doing well. No specific complaints or issues otherwise on this patient for now. Her electrolytes are within normal limits. Her white cell count of 10.8 and hemoglobin of 14.8. PTT is therapeutic on today's evaluation. On 01/15/2020, I'm seeing the patient for a follow-up. The patient remains in the intensive care unit. Currently she is on high flow oxygen 60 L and her FiO2 is in the range of 90-91%. The patient is also utilizing occasionally 100% nonrebreather facemask to supplement her high flow oxygen and maintain a saturation above 90%. No chest pain. No pleurisy. No hemoptysis. She is on Xarelto regarding a pulmonary embolism. In regards to her jane virus Covid 19 infection, the patient is being treated with a combination of Decadron and Remdesivir and the patient also received 2 units of convalescent plasma. The chest x-ray findings are essentially stable. The patient has diffuse breath and pulmonary infiltrates which are essentially stable and unchanged compared to yesterday. Ferritin level is at 2, lower progressively blood work and electrodes are all within normal limits. The patient [place] [address] related to her Covid 19 infection. The patient remains in atrial fibrillation. She is on metoprolol 50 mg by mouth twice a day and the patient is also on Cardizem 60 mg by mouth 3 times a day for rate control. No altered mentation. No other complaints otherwise for now. On 01/16/2020, the patient is struggling with her breathing. Overnight, the patient developed progressive worsening shortness of breath. She was on 100% nonrebreather facemask in combination with high flow oxygen and she was barely able to maintain a saturation above 90%. Subsequently, she desaturated and I switched her to have BiPAP and was running at a pressure of 12/5 cm of water with an FiO2 of 100%. Her saturation was around 92%. Later on, in the afternoon, the patient decompensated and the patient became more hypoxic and also slept on the low 80s. At that point, I contacted the and it performed and above changes and I proceeded with intubation mechanical ventilation. This point in time, the patient is intubated and she is on a mechanical ventilator. Sedated and tidal volume of 400% FiO2 100% and PEEP of 12 and the blood gases showed a pH of 7.34 with a pCO2 of 35 and pO2 of 113. Chest x-ray showing diffuse breath and pulmonary infiltrates. The triple-lumen catheter was established in the right subclavian vein. Her T-max was 100.2. She remains in atrial fibrillation with occasional PVCs. Rate is controlled for now. Note that postintubation, the patient was started on propofol and she became hypotensive. She'll be receiving a total of 2 L of IV fluid in the maintenance normal saline at rate of 100 mL an hour. the patient has a ferritin level of 670. BUN is at 75 with attendant of 0.9. Liver function tests are essentially within normal limits. The patient was taken Xarelto regarding her pulmonary embolism. I will switch this patient to subcutaneous Lovenox therapeutic doses 1 mg per KG every 12 hours. On 01/17/2020, the patient is intubated on mechanical ventilator. On today's evaluation, the patient is on propofol at 50 mg per KG per minute and the patient is calm and comfortable symptoms with the mechanical ventilator. In terms of her vent setting, the patient is an assist-control at a tidal volume of 450 with an FiO2 of 60% with a PEEP of 12 and the respiratory rate of 14. The peak airway pressure is 31 with a static airway pressure of around 28. The blood gases from today showed a pH of 7.16 with a pCO2 of 41 and pO2 of 108. The patient has a low urine output earlier this morning and the patient's CVP was only a 3. Note that the patient received a total of 3 or 4 L of IV fluids boluses. I am recommending an additional fluid bolus to live that the patient's CVP in urine output. The patient's blood work is showing a component of acute kidney injury in the creatinine is up to 1.47. Meanwhile, the patient's white cell count is at 19.4 with a hemoglobin of 12.4. Rest of the electrolytes sh owed a component of non-anion gap metabolic acidosis with anion gap of 5 and a serum bicarb of 16. Creatinine is up to 1.47. CRP is at 67 and ferritin level is at 747, not significantly changed from yesterday. Folic acid level from 01/15/2020 was 0.34. The patient is running a temperature 100.2 max from yesterday. This morning the patient is afebrile.repeat chest x-ray that was done showed diffuse interstitial infiltrates bilaterally with persistent infiltrate in left upper lobe and diffuse infiltration of the right lung as well as the left upper lobe area. ET tube is in a good location the patient is subclavian triple-lumen catheter on the right. Note that overnight, the patient went into atrial fibrillation with rapid ventricular response. The patient was started on Cardizem drip and subsequently converted to normal sinus rhythm. Currently the patient is off Cardizem drip. However, the patient's hypotensive with a norepinephrine infusion running at 0.2 mg per KG per minute. Her hypotension is most likely related to some ongoing degree of intravascular depletion. The patient's CVP remains low. There is also a component of an acute kidney injury. Objective - Vital Signs Vital signs: Vital Signs Temp 98.0 F 01/17/20 12:00 Pulse 88 01/17/20 15:00 Resp 21 01/17/20 15:00 BP 112/79 01/16/20 15:45 Pulse Ox 94 L 01/17/20 15:00 Intake & Output 01/16/20 01/17/20 01/17/20 18:59 06:59 18:59 Intake Total 4176.795 3568.410 3445.179 Output Total 192 217 205 Balance 3984.795 3351.410 3240.179 Weight 77.1 kg Intake: IV 4160 3200 100 .9 @ KVO 10 Remdesivir (Eua) 100 mg 250 In Sodium Chloride 0.9% 250 ml @ 250 mls/hr IVPB Q24H [facility] Rx#:[id number] Sodium Chloride 0.9% 1, 900 1200 100 000 ml @ 100 mls/hr IV . Q10H [facility] Rx#:[id number] Sodium Chloride 0.9% 1, 3000 2000 000 ml @ 999 mls/hr IV . Q1H1M ONE Rx#:[id number] Intake, IV Titration 16.795 769.124 1062.179 Amount Cefepime 1 gm In Sodium 50 Chloride 0.9% 50 ml @ 12. 5 mls/hr IVPB Q12HR [facility] Rx#:[id number] Dextrose 5% in Water 1, 875 000 ml @ 125 mls/hr IV . Q9H12M [facility] with Sodium Bicarb (1 Meq/ml) 150 ml Rx#:[id number] Diltiazem 125 mg In 44.000 Sodium Chloride 0.9% 100 ml @ Per Protocol IV .Q0M [facility] Rx#:[id number] Norepinephrine 8 mg In 16.795 224.410 211.899 Sodium Chloride 0.9% 250 ml @ 0.05 MCG/KG/MIN 6. 763 mls/hr IV .Q24H [facility] Rx#:[id number] Sodium Chloride 0.9% 1, 2000 000 ml @ 999 mls/hr IV . Q1H1M ONE Rx#:[id number] propofoL 1,000 mg In 100 188.28 Empty Bag 1 bag @ Titrate IV .Q0M [facility] Rx#: [id number] Tube Feeding 20 Output: Urine 190 215 205 Stool 2 2 Other: Voiding Method Indwelling Catheter Indwelling Catheter Indwelling Catheter # Voids 2 ABP, PAP, CO, CI - Last Documented Arterial Blood Pressure 123/59 - Exam GENERAL EXAM: Alert, very pleasant 79-year-old female patient which is currently intubated on a mechanical ventilator. Orogastric and orotracheal tube are both in place. HEAD: Normocephalic. EYES: Normal reaction of pupils, equal size. NOSE: Clear with pink turbinates. THROAT: No erythema or exudates. NECK: No masses, no JVD. A subclavian catheter was established on the right side. on the right side.CHEST: No chest wall deformity. LUNGS: Equal air entry with scattered rhonchi., The patient is crackles lung bases bilaterally. CVS: S1 and S2 normal with no audible murmur, irregular rhythm. ABDOMEN: No hepatosplenomegaly, normal bowel sounds, no guarding or rigidity. SPINE: No scoliosis or deformity SKIN: No rashes CENTRAL NERVOUS SYSTEM: the patient is currently sedated, comfortable centimeters the mechanical ventilator. EXTREMITIES: There is no peripheral edema. No clubbing, no cyanosis. Peripheral pulses are intact. - Labs CBC & Chem 7: 01/17/20 03:28 01/17/20 12:20 Labs: Abnormal Lab Results - Last 24 Hours (Table) 01/16/20 01/16/20 01/17/20 Range/Units 16:33 16:40 00:01 WBC 14.4 H (3.8-10.6) k/uL RBC 3.70 L (3.80-5.40) m/uL Plt Count 44 L (150-450) k/uL Neutrophils # (1.3-7.7) k/uL Lymphocytes # (1.0-4.8) k/uL Fibrinogen (200-500) mg/dL D-Dimer (<0.60) mg/L FEU ABG pH (7.35-7.45) ABG HCO3 (21-25) mmol/L ABG Total CO2 (19-24) mmol/L ABG O2 Saturation (94-97) % Chloride (98-107) mmol/L Carbon Dioxide (22-30) mmol/L BUN (7-17) mg/dL Creatinine (0.52-1.04) mg/dL Glucose (74-99) mg/dL POC Glucose (mg/dL) 158 H 150 H (75-99) mg/dL Calcium (8.4-10.2) mg/dL Ferritin (10.0-291.0) ng/mL C-Reactive Protein (<10.0) mg/L Total Protein (6.3-8.2) g/dL Albumin (3.5-5.0) g/dL 01/17/20 01/17/20 01/17/20 Range/Units 03:28 03:28 03:28 WBC 19.4 H (3.8-10.6) k/uL RBC (3.80-5.40) m/uL Plt Count 67 L D (150-450) k/uL Neutrophils # 18.2 H (1.3-7.7) k/uL Lymphocytes # 0.5 L (1.0-4.8) k/uL Fibrinogen 133 L (200-500) mg/dL D-Dimer 34.11 H (<0.60) mg/L FEU ABG pH (7.35-7.45) ABG HCO3 (21-25) mmol/L ABG Total CO2 (19-24) mmol/L ABG O2 Saturation (94-97) % Chloride 117 H (98-107) mmol/L Carbon Dioxide 16 L (22-30) mmol/L BUN 81 H (7-17) mg/dL Creatinine 1.47 H (0.52-1.04) mg/dL Glucose 191 H (74-99) mg/dL POC Glucose (mg/dL) (75-99) mg/dL Calcium 7.9 L (8.4-10.2) mg/dL Ferritin 747.0 H (10.0-291.0) ng/mL C-Reactive Protein 67.9 H (<10.0) mg/L Total Protein 4.7 L (6.3-8.2) g/dL Albumin 2.0 L (3.5-5.0) g/dL 01/17/20 01/17/20 01/17/20 Range/Units 05:20 05:40 12:01 WBC (3.8-10.6) k/uL RBC (3.80-5.40) m/uL Plt Count (150-450) k/uL Neutrophils # (1.3-7.7) k/uL Lymphocytes # (1.0-4.8) k/uL Fibrinogen (200-500) mg/dL D-Dimer (<0.60) mg/L FEU ABG pH 7.16 L* (7.35-7.45) ABG HCO3 15 L (21-25) mmol/L ABG Total CO2 16 L (19-24) mmol/L ABG O2 Saturation 97.8 H (94-97) % Chloride (98-107) mmol/L Carbon Dioxide (22-30) mmol/L BUN (7-17) mg/dL Creatinine (0.52-1.04) mg/dL Glucose (74-99) mg/dL POC Glucose (mg/dL) 192 H 178 H (75-99) mg/dL Calcium (8.4-10.2) mg/dL Ferritin (10.0-291.0) ng/mL C-Reactive Protein (<10.0) mg/L Total Protein (6.3-8.2) g/dL Albumin (3.5-5.0) g/dL 01/17/20 01/17/20 Range/Units 12:20 12:28 WBC (3.8-10.6) k/uL RBC (3.80-5.40) m/uL Plt Count (150-450) k/uL Neutrophils # (1.3-7.7) k/uL Lymphocytes # (1.0-4.8) k/uL Fibrinogen (200-500) mg/dL D-Dimer (<0.60) mg/L FEU ABG pH 7.22 L (7.35-7.45) ABG HCO3 17 L (21-25) mmol/L ABG Total CO2 18 L (19-24) mmol/L ABG O2 Saturation 98.5 H (94-97) % Chloride 118 H (98-107) mmol/L Carbon Dioxide 17 L (22-30) mmol/L BUN 82 H (7-17) mg/dL Creatinine 1.60 H (0.52-1.04) mg/dL Glucose 192 H (74-99) mg/dL POC Glucose (mg/dL) (75-99) mg/dL Calcium 7.4 L (8.4-10.2) mg/dL Ferritin (10.0-291.0) ng/mL C-Reactive Protein (<10.0) mg/L Total Protein (6.3-8.2) g/dL Albumin (3.5-5.0) g/dL Assessment and Plan Plan: 1 acute hypoxic respiratory failure predominantly secondary to Covid 19 related pneumonia and there is also some contribution to her hypoxemia because of the pulmonary embolism. The predominant factor contributing to respiratory failure is Covid 19 related pneumonia as the patient developed diffuse breath and pulmonary infiltrates with progressive hypoxemia despite ongoing treatment. The patient was intubated on 01/16/2020 and the patient currently remains intubated sedated on a mechanical ventilator. Blood gases was noted. Ventilator settings were noted. Chest x-ray findings were also noted and the patient is diffuse but the pulmonary infiltrates consistent with the viral pneumonia. The patient is currently being treated with Decadron. The patient completed the course of Rem desivir and the patient also received convalescent plasma. 2 acute right-sided pulmonary embolism, probably related to Covid 19 related hypercoagulability.The patient is currently on Lovenox therapeutic dose, 80 mg subcu every 12 hours. 3 Covid 19 related pneumonia 4 new onset atrial fibrillation with RVR, currently the patient is back into normal sinus rhythm. The patient was taken off the Cardizem drip. 5 hypotension, likely intravascular volume depletion with a low CVP 6 remote history of DVT and the patient was taken Xarelto on outpatient basis 7 hypertension 8 acute kidney injury, likely secondary to above 9 non-anion gap metabolic acidosis 10 leukocytosis 11 elevated D dimers plan Continue ventilator support Wean down the FiO2 to maintain saturation above 90% Continue the course of Decadron 6 mg , completed the course of Remdesivir per protocol in addition to the rest of the supplements including vitamin C, vitamin D, melatonin, Pepcid and zinc The patient received a unit of convalescent plasma. Lovenox therapeutic dose 1 mg per KG every 12 hours. The patient will be receiving 80 mg every 12 hours. monitor inflammatory markers Give the patient additional 1 L of bolus and following that since the patient IV fluids to a bicarb infusion at the rate of 125 mL an hour of 150 mEq of sodium bicarbonate. Monitor CVP and gradually wean off the pressors. Repeat electrolytes and monitor renal function Monitor CVP Check a pro-calcitonin level Cover this patient empirically with IV antibiotics and will put the patient IV cefepime 2 g every 12 hours Cardiac rhythm is currently sinus Echocardiogram has not revealed any signs of any right ventricular strain patte rn Condition is critical we'll continue to follow. The patient be kept in the intensive care unit for now.This is a critically care evaluation that was done and more than 30 minutes. Time with Patient: Greater than 30
[2020-01-17 16:34] LABS: LD Isoenzymes 1 17 % (19-38); LD Isoenzymes 2 28 % (30-43); LD Isoenzymes 3 24 % (16-26); LD Isoenzymes 4 14 % (3-12); LD Isoenzymes 5 17 % (3-14); Lactacte Dehydrogenase(LD) ISO 595 U/L (120-250)
[2020-01-17 19:02] LABS: Glucose,Whole Blood 202 mg/dL (75-99)
[2020-01-17] MEDS: CEFEPIME 1 GM in SODIUM CHLORIDE 0.9% 50 ML IVPB SCH (19:55)
[2020-01-17] MEDS: MELATONIN 5 MG TABLET PO SCH (19:56)
[2020-01-17] MEDS: dexAMETHasone 2 MG TAB PO SCH (19:56)
[2020-01-17 23:09] LABS: Glucose,Whole Blood 211 mg/dL (75-99)
[2020-01-17 23:20] LABS: Basophils # (A) 0.1 k/uL (0-0.2); Basophils % (A) 0 %; Eosinophils % (A) 0 %; HCT 30.1 % (34.0-46.0); Lymphocytes # (A) 0.3 k/uL (1.0-4.8); Lymphocytes % (A) 2 %; MCH 29.8 pg (25.0-35.0); MCHC 32.2 g/dL (31.0-37.0); MCV 92.4 fL (80.0-100.0); Monocytes # (A) 0.4 k/uL (0-1.0); Monocytes % (A) 2 %; Neutrophils # (A) 15.5 k/uL (1.3-7.7); Neutrophils % (A) 95 %; RBC 3.26 m/uL (3.80-5.40); RDW 13.9 % (11.5-15.5); WBC 16.2 k/uL (3.8-10.6)
[2020-01-17 23:27] LABS: HGB 9.7 gm/dL (11.4-16.0); Platelet Count 62 k/uL (150-450)
[2020-01-17 23:28] LABS: Calcium 7.3 mg/dL (8.4-10.2); Magnesium 1.9 mg/dL (1.6-2.3); Phosphorus 5.8 mg/dL (2.5-4.5); Potassium 4.5 mmol/L (3.5-5.1)
[2020-01-17 23:35] LABS: INR 1.2 (<1.2); Partial Thromboplastin Time 27.3 sec (22.0-30.0); Prothrombin Time 11.8 sec (9.0-12.0)
[2020-01-18] MEDS ORDERED: Magnesium Replacement Protocol 1 EACH MISC MISCELLANE PRN (00:14)
[2020-01-18] MEDS: MAGNESIUM SULFATE-D5W PMX 1 GM in DEXTROSE/WATER 1 100ML.BAG IVPB SCH ×2 (00:35→02:33)
[2020-01-18 04:18] LABS: Basophils # (A) 0.1 k/uL (0-0.2); Basophils % (A) 0 %; Eosinophils % (A) 0 %; HCT 29.8 % (34.0-46.0); HGB 9.8 gm/dL (11.4-16.0); Lymphocytes # (A) 0.3 k/uL (1.0-4.8); Lymphocytes % (A) 2 %; MCH 30.8 pg (25.0-35.0); MCV 93.3 fL (80.0-100.0); Mean Platelet Volume 10.6; Monocytes # (A) 0.4 k/uL (0-1.0); Monocytes % (A) 3 %; Neutrophils # (A) 15.1 k/uL (1.3-7.7); Neutrophils % (A) 95 %; RBC 3.19 m/uL (3.80-5.40); RDW 14.2 % (11.5-15.5); WBC 15.9 k/uL (3.8-10.6)
[2020-01-18 04:21] LABS: Platelet Count 58 k/uL (150-450)
[2020-01-18 04:44] LABS: Albumin 1.7 g/dL (3.5-5.0); C Reactive Protein 68.8 mg/L (<10.0); Calcium 7.7 mg/dL (8.4-10.2); Potassium 4.3 mmol/L (3.5-5.1); Total Bilirubin 0.7 mg/dL (0.2-1.3)
[2020-01-18] MEDS: DEXTROSE 5% IN WATER 1,000 ML with SODIUM BICARB (1 MEQ/ML) 150 ML IV SCH (04:58)
[2020-01-18 05:20] LABS: ABG Base Excess -5.9 mmol/L; ABG HCO3 22 mmol/L (21-25); ABG Oxygen Saturation 99.3 % (94-97); ABG PCO2 56 mmHg (35-45); ABG PH 7.21 (7.35-7.45); ABG PO2 126 mmHg (83-108); ABG TCO2 24 mmol/L (19-24); Allen Test Performed? Yes
[2020-01-18 05:22] LABS: Glucose,Whole Blood 233 mg/dL (75-99)
[2020-01-18] MEDS: INSULIN ASPART (NovoLOG) 100 UNIT/ML VIAL SQ SCH ×4 (05:32→23:58)
--- NOTE | 2020-01-18 07:26 | XR ---
EXAMINATION TYPE: XR chest 1V portable DATE OF EXAM: 01/18/2020 COMPARISON: 01/17/2020 HISTORY: Tube placed TECHNIQUE: Single frontal view of the chest is obtained. FINDINGS: ET and NG tube stable. Central line stable. Underlying COPD suspected with bilateral pleur al effusion and diffuse interstitial pattern. Patient is rotated which limits the exam. Heart size un changed. IMPRESSION: 1. Diffuse bilateral interstitial process correlate for CHF superimposed on a background COPD. Inters titial or viral pneumonitis in the differential diagnosis. No significant interval change
[2020-01-18] MEDS: ALBUTEROL HFA INHALER INHALATION SCH ×4 (07:40→19:23)
[2020-01-18] MEDS: ZINC SULFATE 220 MG CAP PO SCH (07:58)
[2020-01-18] MEDS: ENOXAPARIN 80 MG/0.8 ML SYRINGE SQ SCH (07:59)
[2020-01-18] MEDS: FAMOTIDINE 20 MG TAB PO SCH (07:59)
[2020-01-18] MEDS: CHOLECALCIFEROL 1,000 UNIT TAB PO SCH (07:59)
[2020-01-18] MEDS: ASCORBIC ACID 500 MG TAB PO SCH (07:59)
[2020-01-18] MEDS: CHLORHEXIDINE GLUCONATE 15 ML CUP MUCOUS MEM SCH ×2 (07:59→20:11)
[2020-01-18] MEDS: CEFEPIME 1 GM in SODIUM CHLORIDE 0.9% 50 ML IVPB SCH ×2 (08:00→20:11)
[2020-01-18] MEDS ORDERED: DEXTROSE 5% IN WATER 100 ML with AMIODARONE 150 MG IV ONE (09:54)
[2020-01-18] MEDS: METOPROLOL TARTRATE 50 MG TAB PO SCH (10:00)
[2020-01-18 10:05] LABS: Ferritin 625.6 ng/mL (10.0-291.0)
[2020-01-18] MEDS: AMIODARONE 360 MG in DEXTROSE 5% IN WATER 200 ML IV ONE ×4 (10:17→14:21)
[2020-01-18] MEDS: SODIUM CHLORIDE 0.9% 1,000 ML IV SCH ×2 (11:03→23:59)
[2020-01-18 11:06] LABS: ABG Base Excess -6.5 mmol/L; ABG HCO3 21 mmol/L (21-25); ABG Oxygen Saturation 98.4 % (94-97); ABG PCO2 49 mmHg (35-45); ABG PH 7.24 (7.35-7.45); ABG PO2 102 mmHg (83-108); ABG TCO2 22 mmol/L (19-24); Allen Test Performed? Yes
[2020-01-18 11:47] LABS: Glucose,Whole Blood 236 mg/dL (75-99)
--- NOTE | 2020-01-18 12:43 | P.PN ---
Subjective Patient is seen in follow-up for acute kidney injury. Renal function stable. Bicarb drip discontinued. Now maintained on normal saline at 75 mL an hour. She is currently on amiodarone drip for A. fib. Also on low-dose Levophed. Intubated with 50% FiO2. Urine output improved. She is now making anywhere from 3200 mL an hour of urine. Vital signs are stable. On Levophed. General: The patient appeared well nourished and normally developed. HEENT: Head exam is unremarkable. Intubated. LUNGS: Breath sounds decreased. HEART: irregular rate and rhythm. ABDOMEN: Soft. No distention. EXTREMITITES: Trace edema. Objective - Vital Signs Vital signs: Vital Signs Temp 98.2 F 01/18/20 12:00 Pulse 80 01/18/20 12:00 Resp 18 01/18/20 12:00 BP 112/79 01/16/20 15:45 Pulse Ox 95 01/18/20 12:00 Intake & Output 01/17/20 01/18/20 01/18/20 18:59 06:59 18:59 Intake Total 4023.749 2255.477 928.982 Output Total 360 675 460 Balance 3663.749 1580.477 468.982 Weight 77.1 kg Intake: IV 100 1536 456 .9 @ KVO 220 120 Cefepime 1 gm In Sodium 50 50 Chloride 0.9% 50 ml @ 12. 5 mls/hr IVPB Q12HR [facility] Rx#:[id number] Dextrose 5% in Water 1, 1000 250 000 ml @ 125 mls/hr IV . Q9H12M [facility] with Sodium Bicarb (1 Meq/ml) 150 ml Rx#:[id number] Magnesium Sulfate-D5w Pmx 200 1 gm In Dextrose/Water 1 100ml.bag @ 100 mls/hr IVPB Q1H [facility] Rx#: [id number] Sodium Chloride 0.9% 1, 100 000 ml @ 100 mls/hr IV . Q10H [facility] Rx#:[id number] pressure bags 66 36 Intake, IV Titration 3843.749 439.477 227.982 Amount Amiodarone 360 mg In 0 Dextrose 5% in Water 200 ml @ 1 MG/MIN 33.333 mls/ hr IV .Q6H [facility] Rx#: [id number] Cefepime 1 gm In Sodium 50 Chloride 0.9% 50 ml @ 12. 5 mls/hr IVPB Q12HR [facility] Rx#:[id number] Dextrose 5% in Water 1, 1250 125 000 ml @ 125 mls/hr IV . Q9H12M [facility] with Sodium Bicarb (1 Meq/ml) 150 ml Rx#:[id number] Norepinephrine 8 mg In 268.346 114.477 5.816 Sodium Chloride 0.9% 250 ml @ 0.05 MCG/KG/MIN 6. 763 mls/hr IV .Q24H [facility] Rx#:[id number] Sodium Chloride 0.9% 1, 150 000 ml @ 75 mls/hr IV . [id number] [facility] Rx#:[id number] Sodium Chloride 0.9% 1, 2000 000 ml @ 999 mls/hr IV . Q1H1M [facility] Rx#:[id number] propofoL 1,000 mg In 275.403 200 72.166 Empty Bag 1 bag @ Titrate IV .Q0M [facility] Rx#: [id number] Tube Feeding 50 190 185 Other 30 90 60 Output: Urine 360 675 460 Other: Voiding Method Indwelling Catheter Indwelling Catheter Indwelling Catheter ABP, PAP, CO, CI - Last Documented Arterial Blood Pressure 120/60 - Labs CBC & Chem 7: 01/18/20 04:05 01/18/20 04:05 Labs: Abnormal Lab Results - Last 24 Hours (Table) 01/15/20 01/17/20 01/17/20 Range/Units 06:11 09:11 12:20 WBC (3.8-10.6) k/uL RBC (3.80-5.40) m/uL Hgb (11.4-16.0) gm/dL Hct (34.0-46.0) % Plt Count (150-450) k/uL Neutrophils # (1.3-7.7) k/uL Lymphocytes # (1.0-4.8) k/uL INR (<1.2) ABG pH (7.35-7.45) ABG pCO2 (35-45) mmHg ABG pO2 (83-108) mmHg ABG O2 Saturation (94-97) % Chloride 118 H (98-107) mmol/L Carbon Dioxide 17 L (22-30) mmol/L BUN 82 H (7-17) mg/dL Creatinine 1.60 H (0.52-1.04) mg/dL Glucose 192 H (74-99) mg/dL POC Glucose (mg/dL) (75-99) mg/dL Calcium 7.4 L (8.4-10.2) mg/dL Phosphorus (2.5-4.5) mg/dL Ferritin (10.0-291.0) ng/mL LD Isoenzymes 595 H (120-250) U/L LD 1 17 L (19-38) % LD 2 28 L (30-43) % LD 4 14 H (3-12) % LD 5 17 H (3-14) % C-Reactive Protein (<10.0) mg/L Total Protein (6.3-8.2) g/dL Albumin (3.5-5.0) g/dL Procalcitonin 0.70 H (0.02-0.09) ng/mL 01/17/20 01/17/20 01/17/20 Range/Units 18:59 23:05 23:05 WBC 16.2 H (3.8-10.6) k/uL RBC 3.26 L (3.80-5.40) m/uL Hgb 9.7 L D (11.4-16.0) gm/dL Hct 30.1 L (34.0-46.0) % Plt Count 62 L (150-450) k/uL Neutrophils # 15.5 H (1.3-7.7) k/uL Lymphocytes # 0.3 L (1.0-4.8) k/uL INR (<1.2) ABG pH (7.35-7.45) ABG pCO2 (35-45) mmHg ABG pO2 (83-108) mmHg ABG O2 Saturation (94-97) % Chloride 114 H (98-107) mmol/L Carbon Dioxide (22-30) mmol/L BUN 81 H (7-17) mg/dL Creatinine 1.64 H (0.52-1.04) mg/dL Glucose 211 H (74-99) mg/dL POC Glucose (mg/dL) 202 H (75-99) mg/dL Calcium 7.3 L (8.4-10.2) mg/dL Phosphorus 5.8 H (2.5-4.5) mg/dL Ferritin (10.0-291.0) ng/mL LD Isoenzymes (120-250) U/L LD 1 (19-38) % LD 2 (30-43) % LD 4 (3-12) % LD 5 (3-14) % C-Reactive Protein (<10.0) mg/L Total Protein (6.3-8.2) g/dL Albumin (3.5-5.0) g/dL Procalcitonin (0.02-0.09) ng/mL 01/17/20 01/17/20 01/18/20 Range/Units 23:05 23:07 04:05 WBC 15.9 H (3.8-10.6) k/uL RBC 3.19 L (3.80-5.40) m/uL Hgb 9.8 L (11.4-16.0) gm/dL Hct 29.8 L (34.0-46.0) % Plt Count 58 L (150-450) k/uL Neutrophils # 15.1 H (1.3-7.7) k/uL Lymphocytes # 0.3 L (1.0-4.8) k/uL INR 1.2 H (<1.2) ABG pH (7.35-7.45) ABG pCO2 (35-45) mmHg ABG pO2 (83-108) mmHg ABG O2 Saturation (94-97) % Chloride (98-107) mmol/L Carbon Dioxide (22-30) mmol/L BUN (7-17) mg/dL Creatinine (0.52-1.04) mg/dL Glucose (74-99) mg/dL POC Glucose (mg/dL) 211 H (75-99) mg/dL Calcium (8.4-10.2) mg/dL Phosphorus (2.5-4.5) mg/dL Ferritin (10.0-291.0) ng/mL LD Isoenzymes (120-250) U/L LD 1 (19-38) % LD 2 (30-43) % LD 4 (3-12) % LD 5 (3-14) % C-Reactive Protein (<10.0) mg/L Total Protein (6.3-8.2) g/dL Albumin (3.5-5.0) g/dL Procalcitonin (0.02-0.09) ng/mL 01/18/20 01/18/20 01/18/20 Range/Units 04:05 05:10 05:15 WBC (3.8-10.6) k/uL RBC (3.80-5.40) m/uL Hgb (11.4-16.0) gm/dL Hct (34.0-46.0) % Plt Count (150-450) k/uL Neutrophils # (1.3-7.7) k/uL Lymphocytes # (1.0-4.8) k/uL INR (<1.2) ABG pH 7.21 L (7.35-7.45) ABG pCO2 56 H (35-45) mmHg ABG pO2 126 H (83-108) mmHg ABG O2 Saturation 99.3 H (94-97) % Chloride 112 H (98-107) mmol/L Carbon Dioxide (22-30) mmol/L BUN 82 H (7-17) mg/dL Creatinine 1.63 H (0.52-1.04) mg/dL Glucose 231 H (74-99) mg/dL POC Glucose (mg/dL) 233 H (75-99) mg/dL Calcium 7.7 L (8.4-10.2) mg/dL Phosphorus (2.5-4.5) mg/dL Ferritin 625.6 H (10.0-291.0) ng/mL LD Isoenzymes (120-250) U/L LD 1 (19-38) % LD 2 (30-43) % LD 4 (3-12) % LD 5 (3-14) % C-Reactive Protein 68.8 H (<10.0) mg/L Total Protein 4.0 L (6.3-8.2) g/dL Albumin 1.7 L (3.5-5.0) g/dL Procalcitonin (0.02-0.09) ng/mL 01/18/20 01/18/20 Range/Units 11:03 11:45 WBC (3.8-10.6) k/uL RBC (3.80-5.40) m/uL Hgb (11.4-16.0) gm/dL Hct (34.0-46.0) % Plt Count (150-450) k/uL Neutrophils # (1.3-7.7) k/uL Lymphocytes # (1.0-4.8) k/uL INR (<1.2) ABG pH 7.24 L (7.35-7.45) ABG pCO2 49 H (35-45) mmHg ABG pO2 (83-108) mmHg ABG O2 Saturation 98.4 H (94-97) % Chloride (98-107) mmol/L Carbon Dioxide (22-30) mmol/L BUN (7-17) mg/dL Creatinine (0.52-1.04) mg/dL Glucose (74-99) mg/dL POC Glucose (mg/dL) 236 H (75-99) mg/dL Calcium (8.4-10.2) mg/dL Phosphorus (2.5-4.5) mg/dL Ferritin (10.0-291.0) ng/mL LD Isoenzymes (120-250) U/L LD 1 (19-38) % LD 2 (30-43) % LD 4 (3-12) % LD 5 (3-14) % C-Reactive Protein (<10.0) mg/L Total Protein (6.3-8.2) g/dL Albumin (3.5-5.0) g/dL Procalcitonin (0.02-0.09) ng/mL Microbiology - Last 24 Hours (Table) 01/17/20 09:11 Blood Culture - Preliminary Blood No Growth after 24 hours 01/17/20 09:11 Blood Culture - Preliminary Blood No Growth after 24 hours 01/17/20 15:20 Urine Culture - Preliminary Urine,Catheterized Assessment and Plan Plan: Assessment: 1. Acute kidney injury secondary to ATN secondary to septic shock. Baseline creatinine 1 - 1.63 today. Now nonoliguric. 2. Metabolic acidosis secondary to acute kidney injury. Resolved. Status post bicarb drip. 3. Septic shock secondary to COVID-19 maintained on steroids and zinc. On levophed. Status post remdesivir. Currently on Levophed. 4. PE maintained on anticoagulation. 5. A. fib with RVR maintained on amiodarone drip. Cardiology following. 6. Hyperphosphatemia secondary to acute kidney injury. Expect improvement with improving urine output. Plan: Maintain normal saline. Wean FiO2 and vasopressors. Continue to monitor renal function and urine output.
[2020-01-18] MEDS: NOREPINEPHRINE 8 MG in SODIUM CHLORIDE 0.9% 250 ML IV SCH (12:51)
--- NOTE | 2020-01-18 13:50 | P.PN ---
Subjective Progress Note Date: 01/18/20 Patient is sedated and intubated. Urine output improved significantly compared to yesterday. No bowel movement for the last 2 days. Objective - Vital Signs Vital signs: Vital Signs Temp 98.2 F 01/18/20 12:00 Pulse 80 01/18/20 13:00 Resp 18 01/18/20 13:00 BP 112/79 01/16/20 15:45 Pulse Ox 95 01/18/20 13:00 Intake & Output 01/17/20 01/18/20 01/18/20 18:59 06:59 18:59 Intake Total 4023.749 2255.477 1065.573 Output Total 360 675 570 Balance 3663.749 1580.477 495.573 Weight 77.1 kg 88.2 kg Intake: IV 100 1536 382 .9 @ KVO 220 40 Cefepime 1 gm In Sodium 50 50 Chloride 0.9% 50 ml @ 12. 5 mls/hr IVPB Q12HR [facility] Rx#:[id number] Dextrose 5% in Water 1, 1000 250 000 ml @ 125 mls/hr IV . Q9H12M [facility] with Sodium Bicarb (1 Meq/ml) 150 ml Rx#:[id number] Magnesium Sulfate-D5w Pmx 200 1 gm In Dextrose/Water 1 100ml.bag @ 100 mls/hr IVPB Q1H [facility] Rx#: [id number] Sodium Chloride 0.9% 1, 100 000 ml @ 100 mls/hr IV . Q10H [facility] Rx#:[id number] pressure bags 66 42 Intake, IV Titration 3843.749 439.477 405.573 Amount Amiodarone 360 mg In 0 Dextrose 5% in Water 200 ml @ 1 MG/MIN 33.333 mls/ hr IV .Q6H [facility] Rx#: [id number] Cefepime 1 gm In Sodium 50 Chloride 0.9% 50 ml @ 12. 5 mls/hr IVPB Q12HR [facility] Rx#:[id number] Dextrose 5% in Water 1, 1250 125 000 ml @ 125 mls/hr IV . Q9H12M [facility] with Sodium Bicarb (1 Meq/ml) 150 ml Rx#:[id number] Norepinephrine 8 mg In 268.346 114.477 33.407 Sodium Chloride 0.9% 250 ml @ 0.05 MCG/KG/MIN 6. 763 mls/hr IV .Q24H [facility] Rx#:[id number] Sodium Chloride 0.9% 1, 300 000 ml @ 75 mls/hr IV . [id number] [facility] Rx#:[id number] Sodium Chloride 0.9% 1, 2000 000 ml @ 999 mls/hr IV . Q1H1M [facility] Rx#:[id number] propofoL 1,000 mg In 275.403 200 72.166 Empty Bag 1 bag @ Titrate IV .Q0M [facility] Rx#: [id number] Tube Feeding 50 190 218 Other 30 90 60 Output: Urine 360 675 570 Other: Voiding Method Indwelling Catheter Indwelling Catheter Indwelling Catheter ABP, PAP, CO, CI - Last Documented Arterial Blood Pressure 106/57 - Exam General: The patient is sedated and intubated Eye: there is normal conjunctiva bilaterally. Neck: The neck is supple, there is no JVD. Cardiovascular: Normal S1-S2, no S3-S4, no murmurs. Respiratory: Lungs with mechanical ventilator sounds Gastrointestinal: Abdomen is soft, nontender Musculoskeletal: There is no pedal edema. Skin: Skin is warm and dry - Labs CBC & Chem 7: 01/18/20 04:05 01/18/20 04:05 Labs: Abnormal Lab Results - Last 24 Hours (Table) 01/15/20 01/17/20 01/17/20 Range/Units 06:11 09:11 18:59 WBC (3.8-10.6) k/uL RBC (3.80-5.40) m/uL Hgb (11.4-16.0) gm/dL Hct (34.0-46.0) % Plt Count (150-450) k/uL Neutrophils # (1.3-7.7) k/uL Lymphocytes # (1.0-4.8) k/uL INR (<1.2) ABG pH (7.35-7.45) ABG pCO2 (35-45) mmHg ABG pO2 (83-108) mmHg ABG O2 Saturation (94-97) % Chloride (98-107) mmol/L BUN (7-17) mg/dL Creatinine (0.52-1.04) mg/dL Glucose (74-99) mg/dL POC Glucose (mg/dL) 202 H (75-99) mg/dL Calcium (8.4-10.2) mg/dL Phosphorus (2.5-4.5) mg/dL Ferritin (10.0-291.0) ng/mL LD Isoenzymes 595 H (120-250) U/L LD 1 17 L (19-38) % LD 2 28 L (30-43) % LD 4 14 H (3-12) % LD 5 17 H (3-14) % C-Reactive Protein (<10.0) mg/L Total Protein (6.3-8.2) g/dL Albumin (3.5-5.0) g/dL Procalcitonin 0.70 H (0.02-0.09) ng/mL 01/17/20 01/17/20 01/17/20 Range/Units 23:05 23:05 23:05 WBC 16.2 H (3.8-10.6) k/uL RBC 3.26 L (3.80-5.40) m/uL Hgb 9.7 L D (11.4-16.0) gm/dL Hct 30.1 L (34.0-46.0) % Plt Count 62 L (150-450) k/uL Neutrophils # 15.5 H (1.3-7.7) k/uL Lymphocytes # 0.3 L (1.0-4.8) k/uL INR 1.2 H (<1.2) ABG pH (7.35-7.45) ABG pCO2 (35-45) mmHg ABG pO2 (83-108) mmHg ABG O2 Saturation (94-97) % Chloride 114 H (98-107) mmol/L BUN 81 H (7-17) mg/dL Creatinine 1.64 H (0.52-1.04) mg/dL Glucose 211 H (74-99) mg/dL POC Glucose (mg/dL) (75-99) mg/dL Calcium 7.3 L (8.4-10.2) mg/dL Phosphorus 5.8 H (2.5-4.5) mg/dL Ferritin (10.0-291.0) ng/mL LD Isoenzymes (120-250) U/L LD 1 (19-38) % LD 2 (30-43) % LD 4 (3-12) % LD 5 (3-14) % C-Reactive Protein (<10.0) mg/L Total Protein (6.3-8.2) g/dL Albumin (3.5-5.0) g/dL Procalcitonin (0.02-0.09) ng/mL 01/17/20 01/18/20 01/18/20 Range/Units 23:07 04:05 04:05 WBC 15.9 H (3.8-10.6) k/uL RBC 3.19 L (3.80-5.40) m/uL Hgb 9.8 L (11.4-16.0) gm/dL Hct 29.8 L (34.0-46.0) % Plt Count 58 L (150-450) k/uL Neutrophils # 15.1 H (1.3-7.7) k/uL Lymphocytes # 0.3 L (1.0-4.8) k/uL INR (<1.2) ABG pH (7.35-7.45) ABG pCO2 (35-45) mmHg ABG pO2 (83-108) mmHg ABG O2 Saturation (94-97) % Chloride 112 H (98-107) mmol/L BUN 82 H (7-17) mg/dL Creatinine 1.63 H (0.52-1.04) mg/dL Glucose 231 H (74-99) mg/dL POC Glucose (mg/dL) 211 H (75-99) mg/dL Calcium 7.7 L (8.4-10.2) mg/dL Phosphorus (2.5-4.5) mg/dL Ferritin 625.6 H (10.0-291.0) ng/mL LD Isoenzymes (120-250) U/L LD 1 (19-38) % LD 2 (30-43) % LD 4 (3-12) % LD 5 (3-14) % C-Reactive Protein 68.8 H (<10.0) mg/L Total Protein 4.0 L (6.3-8.2) g/dL Albumin 1.7 L (3.5-5.0) g/dL Procalcitonin (0.02-0.09) ng/mL 01/18/20 01/18/20 01/18/20 Range/Units 05:10 05:15 11:03 WBC (3.8-10.6) k/uL RBC (3.80-5.40) m/uL Hgb (11.4-16.0) gm/dL Hct (34.0-46.0) % Plt Count (150-450) k/uL Neutrophils # (1.3-7.7) k/uL Lymphocytes # (1.0-4.8) k/uL INR (<1.2) ABG pH 7.21 L 7.24 L (7.35-7.45) ABG pCO2 56 H 49 H (35-45) mmHg ABG pO2 126 H (83-108) mmHg ABG O2 Saturation 99.3 H 98.4 H (94-97) % Chloride (98-107) mmol/L BUN (7-17) mg/dL Creatinine (0.52-1.04) mg/dL Glucose (74-99) mg/dL POC Glucose (mg/dL) 233 H (75-99) mg/dL Calcium (8.4-10.2) mg/dL Phosphorus (2.5-4.5) mg/dL Ferritin (10.0-291.0) ng/mL LD Isoenzymes (120-250) U/L LD 1 (19-38) % LD 2 (30-43) % LD 4 (3-12) % LD 5 (3-14) % C-Reactive Protein (<10.0) mg/L Total Protein (6.3-8.2) g/dL Albumin (3.5-5.0) g/dL Procalcitonin (0.02-0.09) ng/mL 01/18/20 Range/Units 11:45 WBC (3.8-10.6) k/uL RBC (3.80-5.40) m/uL Hgb (11.4-16.0) gm/dL Hct (34.0-46.0) % Plt Count (150-450) k/uL Neutrophils # (1.3-7.7) k/uL Lymphocytes # (1.0-4.8) k/uL INR (<1.2) ABG pH (7.35-7.45) ABG pCO2 (35-45) mmHg ABG pO2 (83-108) mmHg ABG O2 Saturation (94-97) % Chloride (98-107) mmol/L BUN (7-17) mg/dL Creatinine (0.52-1.04) mg/dL Glucose (74-99) mg/dL POC Glucose (mg/dL) 236 H (75-99) mg/dL Calcium (8.4-10.2) mg/dL Phosphorus (2.5-4.5) mg/dL Ferritin (10.0-291.0) ng/mL LD Isoenzymes (120-250) U/L LD 1 (19-38) % LD 2 (30-43) % LD 4 (3-12) % LD 5 (3-14) % C-Reactive Protein (<10.0) mg/L Total Protein (6.3-8.2) g/dL Albumin (3.5-5.0) g/dL Procalcitonin (0.02-0.09) ng/mL Microbiology - Last 24 Hours (Table) 01/17/20 09:11 Blood Culture - Preliminary Blood No Growth after 24 hours 01/17/20 09:11 Blood Culture - Preliminary Blood No Growth after 24 hours 01/17/20 15:20 Urine Culture - Preliminary Urine,Catheterized Assessment and Plan Assessment: This is a 79-year-old female with complex past medical history noted below who presented to the hospital with generalized fatigue and worsening shortness of br eath. Patient was diagnosed with Covid19 I week ago prior to her presentation after she was tested approximately 2 weeks ago. She finished azithromycin course at home. Patient was evaluated in the ER and currently admitted to the hospital for further management of medical problems noted below. 1. Pulmonary embolism: Echocardiogram showed preserved EF with no evidence of right ventricular strain. Started on IV heparin and switched to Rivaroxaban 15 mg twice daily on 01/13 no switched to Lovenox on 01/15. Not a candidate for thrombolysis as there is no evidence of right ventricular strain, discussed with Dr. Qureshi 2. Covid19 pneumonia, positive test at an outside facility a week ago prior to the presentation. Repeat PCR here in the hospital was also positive. started on dexamethasone 6 mg daily day #10. We will continue to monitor inflammatory markers. Pulmonary consulted for further evaluation, appreciate recommendations. FinishedRemdesivir course on 01/15. Continue zinc, melatonin, and vitamin C daily. s/p convalescent plasma on 01/13 3. New onset atrial fibrillation with rapid ventricular response, currently rate controlled. Thyroid function tests within normal range. Seen and evaluated by cardiology. Started metoprolol and Cardizem. Continue traffic monitor specialist. Patient already on anticoagulation secondary to PE. 4. Acute hypoxic respiratory failure secondary to #1 and 2. Requiring intubation and mechanical ventilation on 01/15. Bilateral groundglass opacity most likely secondary to Covid19. Started on IV cefepime on 01/15 for possible superimposed bacterial pneumonia 5. Severe sepsis with septic shock on 01/15 requiring vasopressors, secondary to Covid-19. Lactic acid is normal. Improved with IV fluid hydration. Blood culture negative to date. 6. Acute kidney injury, oliguric. Her urine output improved significantly. Nephrology consulted for further management. 7. 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 8. Essential hypertension 9. CODE STATUS: Patient would like to be full code Today, I reviewed her medication list and lab work results. Continue ICU care. Patient remained in critical condition. Continue current regimen. Appreciate bridal sales consultant's recommendations. Repeat lab work in the morning including inflammatory markers Vent management per ICU team.
--- NOTE | 2020-01-18 14:38 | P.PN ---
Subjective Progress Note Date: 01/18/20 On today's evaluation of 01/12/2020, the patient is being seen in follow-up. As mentioned earlier, the patient was infected with jane virus Covid 19 and the patient had an acute Covid 19 related pneumonia with diffuse breath and pulmonary infiltrates. Subsequently, the patient had a CT angios of the chest that showed bilateral pulmonary infiltrates and groundglass opacities in addition to pulmonary embolism involving mainly the right-sided pulmonary artery branches. Filling defect in the right pulmonary artery and segmental branches in addition to that there is a mild component of strain pattern. Nevertheless, tachycardic and short and a ejection fraction of 6065% and the patient had no en largement of the right ventricle and there was no evidence of any pulmonary hypertension. Noted the patient oxidation is gradually gotten worse and currently the patient is on high flow oxygen at 6 L with an FiO2 of 85% and this was utilized to bring the saturation above 90%. The patient is on IV heparin with a therapeutic PTT of 58.7. Based on the acute jane virus Covid 19 infection, the patient had an LDH of 1455 and a CRP is at 47.9. The patient is having difficulty breathing with minimal amount of activity. Currently she is on bedrest. The patient has no pleurisy. No hemoptysis. Altered mentation. No other significant events overnight. Based on the worsening oxygenation, repe at chest x-ray was done and showed a patchy bilateral pulmonary infiltrates right more than left. No pleural effusion. The findings are essentially stable compared to yesterday's chest x-ray. On 01/13/2020, I'm seeing this patient for a follow-up. Overnight, the patient a chance to the intensive care unit as the patient was found to be getting progressively more hypoxic. This morning, the patient is a mild degree of respiratory distress. The patient is on airflow high flow oxygen which is set at 60 L and the patient is also wearing 100% nonrebreather facemask. Current pulse ox is around 93-94%. The patient remains on IV heparin regarding her pulmonary embolism. The patient is also on a combination of Decadron and Remdesivir regarding the jane virus Covid 19 related pneumonia. The chest x- ray still showing diffuse bilateral pulmonary infiltrates, essentially unchanged compared to yesterday, probably slightly worse compared to yesterday. The patient was also in atrial fibrillation. She was having episodes response. The patient was seen by cardiology and the patient's metoprolol dose was increased up to 50 mg by mouth twice a day. She has no complaints otherwise for now. She is afebrile. She is hemodynamic is stable. The white cell count of 10.2. Renal function is stable. Electrodes are within normal limits. On 01/14/2020, the patient is in the intensive care unit and the patient is being seen in follow-up regarding his Covid 19 related pneumonia. The patient remains in the 100% nonrebreather facemask addition to high flow oxygen 6 L with an FiO2 of 90%. The patient had a blood gas that showed a pH of 7.51 with a pCO2 of 29 and pO2 of 63. The patient is awake and alert. She does not seem to be a significant degree of respirator distress despite this profound hypoxemia. She remains in atrial fibrillation. At times she is going to the rapid shauna tricular response. She is on examination of Cardizem and metoprolol and a dose is being adjusted. The patient IV heparin and the patient will be switched back to Xarelto. Meanwhile, the patient is being treated for the Covid 19 related pneumonia with accommodation of Decadron and Remdesivir and the patient will be also started the on convalescent plasma if available. She is doing well. No specific complaints or issues otherwise on this patient for now. Her electrolytes are within normal limits. Her white cell count of 10.8 and hemoglobin of 14.8. PTT is therapeutic on today's evaluation. On 01/15/2020, I'm seeing the patient for a follow-up. The patient remains in the intensive care unit. Currently she is on high flow oxygen 60 L and her FiO2 is in the range of 90-91%. The patient is also utilizing occasionally 100% nonrebreather facemask to supplement her high flow oxygen and maintain a saturation above 90%. No chest pain. No pleurisy. No hemoptysis. She is on Xarelto regarding a pulmonary embolism. In regards to her jane virus Covid 19 infection, the patient is being treated with a combination of Decadron and Remdesivir and the patient also received 2 units of convalescent plasma. The chest x-ray findings are essentially stable. The patient has diffuse breath and pulmonary infiltrates which are essentially stable and unchanged compared to yesterday. Ferritin level is at 2, lower progressively blood work and electrodes are all within normal limits. The [place] [address] related to her Covid 19 infection. The patient remains in atrial fibrillation. She is on metoprolol 50 mg by mouth twice a day and the patient is also on Cardizem 60 mg by mouth 3 times a day for rate control. No altered mentation. No other complaints otherwise for now. On 01/16/2020, the patient is struggling with her breathing. Overnight, the patient developed progressive worsening shortness of breath. She was on 100% nonrebreather facemask in combination with high flow oxygen and she was barely able to maintain a saturation above 90%. Subsequently, she desaturated and I switched her to have BiPAP and was running at a pressure of 12/5 cm of water with an FiO2 of 100%. Her saturation was around 92%. Later on, in the afternoon, the patient decompensated and the patient became more hypoxic and also slept on the low 80s. At that point, I contacted the and it performed and above changes and I proceeded with intubation mechanical ventilation. This point in time, the patient is intubated and she is on a mechanical ventilator. Sedated and tidal volume of 400% FiO2 100% and PEEP of 12 and the blood gases showed a pH of 7.34 with a pCO2 of 35 and pO2 of 113. Chest x-ray showing diffuse breath and pulmonary infiltrates. The triple-lumen catheter was established in the right subclavian vein. Her T-max was 100.2. She remains in atrial fibrillation with occasional PVCs. Rate is controlled for now. Note that postintubation, the patient was started on propofol and she became hypotensive. She'll be receiving a total of 2 L of IV fluid in the maintenance normal saline at rate of 100 mL an hour. the patient has a ferritin level of 670. BUN is at 75 with attendant of 0.9. Liver function tests are essentially within normal limits. The patient was taken Xarelto regarding her pulmonary embolism. I will switch this patient to subcutaneous Lovenox therapeutic doses 1 mg per KG every 12 hours. On 01/17/2020, the patient is intubated on mechanical ventilator. On today's evaluation, the patient is on propofol at 50 mg per KG per minute and the patient is calm and comfortable symptoms with the mechanical ventilator. In terms of her vent setting, the patient is an assist-control at a tidal volume of 450 with an FiO2 of 60% with a PEEP of 12 and the respiratory rate of 14. The peak airway pressure is 31 with a static airway pressure of around 28. The blood gases from today showed a pH of 7.16 with a pCO2 of 41 and pO2 of 108. The patient has a low urine output earlier this morning and the patient's CVP was only a 3. Note that the patient received a total of 3 or 4 L of IV fluids boluses. I am recommending an additional fluid bolus to live that the patient's CVP in urine output. The patient's blood work is showing a component of acute kidney injury in the creatinine is up to 1.47. Meanwhile, the patient's white cell count is at 19.4 with a hemoglobin of 12.4. Rest of the electrolytes sh owed a component of non-anion gap metabolic acidosis with anion gap of 5 and a serum bicarb of 16. Creatinine is up to 1.47. CRP is at 67 and ferritin level is at 747, not significantly changed from yesterday. Folic acid level from 01/15/2020 was 0.34. The patient is running a temperature 100.2 max from yesterday. This morning the patient is afebrile.repeat chest x-ray that was done showed diffuse interstitial infiltrates bilaterally with persistent infiltrate in left upper lobe and diffuse infiltration of the right lung as well as the left upper lobe area. ET tube is in a good location the patient is subclavian triple-lumen catheter on the right. Note that overnight, the patient went into atrial fibrillation with rapid ventricular response. The patient was started on Cardizem drip and subsequently converted to normal sinus rhythm. Currently the patient is off Cardizem drip. However, the patient's hypotensive with a norepinephrine infusion running at 0.2 mg per KG per minute. Her hypotension is most likely related to some ongoing degree of intravascular depletion. The patient's CVP remains low. There is also a component of an acute kidney injury. On 01/18/2020, the patient remains intubated on a mechanical ventilator. This morning, the patient sedated with propofol and is calm and comfortable. Propofol is running at 50 mcg/kg per minute. The patient remained on assist control mode of ventilation. She is on a tidal volume of 451 and FiO2 of 50% with a PEEP of 12 and a rate of 14. The patient's blood gases showed a pH of 7.21 with episodes of 56 and pO2 of 126. The peak airway pressure is 30. The static airway pressure is 28. Chest x-ray remains unchanged. There is bilateral pulmonary infiltrates which remains essentially unchanged compared to yesterday. She has a triple lumen catheter. Her CVP is around 9. She did receive total of 2 L of IV fluids yesterday which both upper CVP and improved her blood pressure. She remains on a low dose norepinephrine infusion running at 0.04-respiratory KG per minute. She also has an acute kidney injury and a component of non-anion gap metabolic acidosis. Based on that, I gave her 2 A of sodium bicarbonate total of 100 mEq and the patient was also started on abicarb infusion. This improved her non-anion gap metabolic acidosis. The serum bicarb today is up to 24. Creatinine is at 1.6 with a BUN of 82. The patient meanwhile went into atrial fibrillation again with rapid ventricular response. Based on her hypotension, I opted to start the patient on amiodarone. I loaded her with a total of 150 mg of amiodarone bolus and I'm going to load completely over the next 24 hours. She is also on IV cefepime as an empiric antibiotic coverage. She is completed a course of Remdesivir ,, convalescent plasma 1 and the patient is also been on Decadron 6 mg every 24 hours. Objective - Vital Signs Vital signs: Vital Signs Temp 98.2 F 01/18/20 12:00 Pulse 74 01/18/20 14:00 Resp 18 01/18/20 14:00 BP 112/79 01/16/20 15:45 Pulse Ox 94 L 01/18/20 14:00 Intake & Output 01/17/20 01/18/20 01/18/20 18:59 06:59 18:59 Intake Total 4023.749 2255.477 1323.693 Output Total 360 675 630 Balance 3663.749 1580.477 693.693 Weight 77.1 kg 88.2 kg Intake: IV 100 1536 388 .9 @ KVO 220 40 Cefepime 1 gm In Sodium 50 50 Chloride 0.9% 50 ml @ 12. 5 mls/hr IVPB Q12HR [facility] Rx#:[id number] Dextrose 5% in Water 1, 1000 250 000 ml @ 125 mls/hr IV . Q9H12M [facility] with Sodium Bicarb (1 Meq/ml) 150 ml Rx#:[id number] Magnesium Sulfate-D5w Pmx 200 1 gm In Dextrose/Water 1 100ml.bag @ 100 mls/hr IVPB Q1H [facility] Rx#: [id number] Sodium Chloride 0.9% 1, 100 000 ml @ 100 mls/hr IV . Q10H [facility] Rx#:[id number] pressure bags 66 48 Intake, IV Titration 3843.749 439.477 624.693 Amount Amiodarone 360 mg In 135.554 Dextrose 5% in Water 200 ml @ 1 MG/MIN 33.333 mls/ hr IV .Q6H [facility] Rx#: [id number] Cefepime 1 gm In Sodium 50 Chloride 0.9% 50 ml @ 12. 5 mls/hr IVPB Q12HR [facility] Rx#:[id number] Dextrose 5% in Water 1, 1250 125 000 ml @ 125 mls/hr IV . Q9H12M [facility] with Sodium Bicarb (1 Meq/ml) 150 ml Rx#:[id number] Norepinephrine 8 mg In 268.346 114.477 41.973 Sodium Chloride 0.9% 250 ml @ 0.05 MCG/KG/MIN 6. 763 mls/hr IV .Q24H [facility] Rx#:[id number] Sodium Chloride 0.9% 1, 375 000 ml @ 75 mls/hr IV . [id number] [facility] Rx#:[id number] Sodium Chloride 0.9% 1, 2000 000 ml @ 999 mls/hr IV . Q1H1M [facility] Rx#:[id number] propofoL 1,000 mg In 275.403 200 72.166 Empty Bag 1 bag @ Titrate IV .Q0M [facility] Rx#: [id number] Tube Feeding 50 190 251 Other 30 90 60 Output: Urine 360 675 630 Other: Voiding Method Indwelling Catheter Indwelling Catheter Indwelling Catheter ABP, PAP, CO, CI - Last Documented Arterial Blood Pressure 107/54 - Exam GENERAL EXAM: Alert, very pleasant 79-year-old female patient which is currently intubated on a mechanical ventilator. Orogastric and orotracheal tube are both in place. HEAD: Normocephalic. EYES: Normal reaction of pupils, equal size. NOSE: Clear with pink turbinates. THROAT: No erythema or exudates. NECK: No masses, no JVD. A subclavian catheter was established on the right s morris. on the right side.CHEST: No chest wall deformity. LUNGS: Equal air entry with scattered rhonchi., The patient is crackles lung bases bilaterally. CVS: S1 and S2 normal with no audible murmur, irregular rhythm. ABDOMEN: No hepatosplenomegaly, normal bowel sounds, no guarding or rigidity. SPINE: No scoliosis or deformity SKIN: No rashes CENTRAL NERVOUS SYSTEM: the patient is currently sedated, comfortable centimeters the mechanical ventilator. EXTREMITIES: There is no peripheral edema. No clubbing, no cyanosis. Peripheral pulses are intact. - Labs CBC & Chem 7: 01/18/20 04:05 01/18/20 04:05 Labs: Abnormal Lab Results - Last 24 Hours (Table) 01/15/20 01/17/20 01/17/20 Range/Units 06:11 09:11 18:59 WBC (3.8-10.6) k/uL RBC (3.80-5.40) m/uL Hgb (11.4-16.0) gm/dL Hct (34.0-46.0) % Plt Count (150-450) k/uL Neutrophils # (1.3-7.7) k/uL Lymphocytes # (1.0-4.8) k/uL INR (<1.2) ABG pH (7.35-7.45) ABG pCO2 (35-45) mmHg ABG pO2 (83-108) mmHg ABG O2 Saturation (94-97) % Chloride (98-107) mmol/L BUN (7-17) mg/dL Creatinine (0.52-1.04) mg/dL Glucose (74-99) mg/dL POC Glucose (mg/dL) 202 H (75-99) mg/dL Calcium (8.4-10.2) mg/dL Phosphorus (2.5-4.5) mg/dL Ferritin (10.0-291.0) ng/mL LD Isoenzymes 595 H (120-250) U/L LD 1 17 L (19-38) % LD 2 28 L (30-43) % LD 4 14 H (3-12) % LD 5 17 H (3-14) % C-Reactive Protein (<10.0) mg/L Total Protein (6.3-8.2) g/dL Albumin (3.5-5.0) g/dL Procalcitonin 0.70 H (0.02-0.09) ng/mL 01/17/20 01/17/20 01/17/20 Range/Units 23:05 23:05 23:05 WBC 16.2 H (3.8-10.6) k/uL RBC 3.26 L (3.80-5.40) m/uL Hgb 9.7 L D (11.4-16.0) gm/dL Hct 30.1 L (34.0-46.0) % Plt Count 62 L (150-450) k/uL Neutrophils # 15.5 H (1.3-7.7) k/uL Lymphocytes # 0.3 L (1.0-4.8) k/uL INR 1.2 H (<1.2) ABG pH (7.35-7.45) ABG pCO2 (35-45) mmHg ABG pO2 (83-108) mmHg ABG O2 Saturation (94-97) % Chloride 114 H (98-107) mmol/L BUN 81 H (7-17) mg/dL Creatinine 1.64 H (0.52-1.04) mg/dL Glucose 211 H (74-99) mg/dL POC Glucose (mg/dL) (75-99) mg/dL Calcium 7.3 L (8.4-10.2) mg/dL Phosphorus 5.8 H (2.5-4.5) mg/dL Ferritin (10.0-291.0) ng/mL LD Isoenzymes (120-250) U/L LD 1 (19-38) % LD 2 (30-43) % LD 4 (3-12) % LD 5 (3-14) % C-Reactive Protein (<10.0) mg/L Total Protein (6.3-8.2) g/dL Albumin (3.5-5.0) g/dL Procalcitonin (0.02-0.09) ng/mL 01/17/20 01/18/20 01/18/20 Range/Units 23:07 04:05 04:05 WBC 15.9 H (3.8-10.6) k/uL RBC 3.19 L (3.80-5.40) m/uL Hgb 9.8 L (11.4-16.0) gm/dL Hct 29.8 L (34.0-46.0) % Plt Count 58 L (150-450) k/uL Neutrophils # 15.1 H (1.3-7.7) k/uL Lymphocytes # 0.3 L (1.0-4.8) k/uL INR (<1.2) ABG pH (7.35-7.45) ABG pCO2 (35-45) mmHg ABG pO2 (83-108) mmHg ABG O2 Saturation (94-97) % Chloride 112 H (98-107) mmol/L BUN 82 H (7-17) mg/dL Creatinine 1.63 H (0.52-1.04) mg/dL Glucose 231 H (74-99) mg/dL POC Glucose (mg/dL) 211 H (75-99) mg/dL Calcium 7.7 L (8.4-10.2) mg/dL Phosphorus (2.5-4.5) mg/dL Ferritin 625.6 H (10.0-291.0) ng/mL LD Isoenzymes (120-250) U/L LD 1 (19-38) % LD 2 (30-43) % LD 4 (3-12) % LD 5 (3-14) % C-Reactive Protein 68.8 H (<10.0) mg/L Total Protein 4.0 L (6.3-8.2) g/dL Albumin 1.7 L (3.5-5.0) g/dL Procalcitonin (0.02-0.09) ng/mL 01/18/20 01/18/20 01/18/20 Range/Units 05:10 05:15 11:03 WBC (3.8-10.6) k/uL RBC (3.80-5.40) m/uL Hgb (11.4-16.0) gm/dL Hct (34.0-46.0) % Plt Count (150-450) k/uL Neutrophils # (1.3-7.7) k/uL Lymphocytes # (1.0-4.8) k/uL INR (<1.2) ABG pH 7.21 L 7.24 L (7.35-7.45) ABG pCO2 56 H 49 H (35-45) mmHg ABG pO2 126 H (83-108) mmHg ABG O2 Saturation 99.3 H 98.4 H (94-97) % Chloride (98-107) mmol/L BUN (7-17) mg/dL Creatinine (0.52-1.04) mg/dL Glucose (74-99) mg/dL POC Glucose (mg/dL) 233 H (75-99) mg/dL Calcium (8.4-10.2) mg/dL Phosphorus (2.5-4.5) mg/dL Ferritin (10.0-291.0) ng/mL LD Isoenzymes (120-250) U/L LD 1 (19-38) % LD 2 (30-43) % LD 4 (3-12) % LD 5 (3-14) % C-Reactive Protein (<10.0) mg/L Total Protein (6.3-8.2) g/dL Albumin (3.5-5.0) g/dL Procalcitonin (0.02-0.09) ng/mL 01/18/20 Range/Units 11:45 WBC (3.8-10.6) k/uL RBC (3.80-5.40) m/uL Hgb (11.4-16.0) gm/dL Hct (34.0-46.0) % Plt Count (150-450) k/uL Neutrophils # (1.3-7.7) k/uL Lymphocytes # (1.0-4.8) k/uL INR (<1.2) ABG pH (7.35-7.45) ABG pCO2 (35-45) mmHg ABG pO2 (83-108) mmHg ABG O2 Saturation (94-97) % Chloride (98-107) mmol/L BUN (7-17) mg/dL Creatinine (0.52-1.04) mg/dL Glucose (74-99) mg/dL POC Glucose (mg/dL) 236 H (75-99) mg/dL Calcium (8.4-10.2) mg/dL Phosphorus (2.5-4.5) mg/dL Ferritin (10.0-291.0) ng/mL LD Isoenzymes (120-250) U/L LD 1 (19-38) % LD 2 (30-43) % LD 4 (3-12) % LD 5 (3-14) % C-Reactive Protein (<10.0) mg/L Total Protein (6.3-8.2) g/dL Albumin (3.5-5.0) g/dL Procalcitonin (0.02-0.09) ng/mL Microbiology - Last 24 Hours (Table) 01/17/20 09:11 Blood Culture - Preliminary Blood No Growth after 24 hours 01/17/20 09:11 Blood Culture - Preliminary Blood No Growth after 24 hours 01/17/20 15:20 Urine Culture - Preliminary Urine,Catheterized Assessment and Plan Plan: 1 acute hypoxic respiratory failure predominantly secondary to Covid 19 related pneumonia and there is also some contribution to her hypoxemia because of the pulmonary embolism. The predominant factor contributing to respiratory failure is Covid 19 related pneumonia as the patient developed diffuse breath and pulmonary infiltrates with progressive hypoxemia despite ongoing treatment. The patient was intubated on 01/16/2020 and the patient currently remains intubated sedated on a mechanical ventilator. Blood gases was noted. Ventilator settings were noted. Chest x-ray findings were also noted and the patient is diffuse but the pulmonary infiltrates consistent with the viral pneumonia. The patient is currently being treated with Decadron. The patient completed the course of Remdesivir and the patient also received convalescent plasma 1. On today's evaluation, the patient's blood gases is still showing a component of respiratory acidosis. Metabolic acidosis been treated. No significant improvement in patient's oxygenation. We'll keep the FiO2 and a PEEP unchanged at this point in time. Chest x-ray was reviewed. 2 acute right-sided pulmonary embolism, probably related to Covid 19 related hypercoagulability.The patient is currently on Lovenox therapeutic dose, 80 mg subcu every 12 hours. 3 Covid 19 related pneumonia 4 recurrent atrial fibrillation with rapid response. The patient will be loaded with amiodarone and subsequent to maintain on amiodarone. Patient is already and anticoagulation. 5 hypotension, likely intravascular volume depletion with a low CVP, and the patient CVP improved after fluid resuscitation current CVP is up to 9. She is still requiring low-dose norepinephrine infusion which is running at 0.04 mics are as per KG per minute. 6 remote history of DVT and the patient was taken Xarelto on outpatient basis 7 hypertension 8 acute kidney injury, likely secondary to above, creatinine is at 1.6 9 non-anion gap metabolic acidosis, recovered 10 leukocytosis 11 elevated D dimers plan Continue ventilator support I'm going to ask to repeat Blood gases around noontime Continue the course of Decadron 6 mg , completed the course of Remdesivir per protocol in addition to the rest of the supplements including vitamin C, vitamin D, melatonin, Pepcid and zinc The patient received a unit of convalescent plasma. Lovenox therapeutic dose 1 mg per KG every 12 hours. The patient will be receiving 80 mg every 12 hours. monitor inflammatory markers Monitor CVP and gradually wean off the pressors. The patient CVP is up to 9. The patient will be taken off the bicarb infusion and the patient will be switched to normal saline at rate of 75 mL an hour. We'll ask nursing staff to gradually wean off the norepinephrine and discontinue. Monitor CVP Cover this patient empirically with IV antibiotics and will put the patient IV cefepime 2 g every 12 hours Cardiac rhythm is atrial fibrillation the patient will be loaded with amiodarone. Will continue norepinephrine infusion for blood pressure support. Echocardiogram has not revealed any signs of any right ventricular strain pattern Condition is critical we'll continue to follow. The patient be kept in the intensive care unit for now.This is a critically care evaluation that was done and more than 30 minutes. Time with Patient: Greater than 30
[2020-01-18] MEDS: AMIODARONE 300 MG in DEXTROSE 5% IN WATER 250 ML IV SCH ×2 (16:11)
[2020-01-18 17:33] LABS: Glucose,Whole Blood 191 mg/dL (75-99)
[2020-01-18] MEDS: polyethylene glycoL 3350 17 GM POWD.PACK PO SCH (17:39)
[2020-01-18] MEDS: dexAMETHasone 2 MG TAB PO SCH (20:11)
[2020-01-18] MEDS: MELATONIN 5 MG TABLET PO SCH (20:11)
[2020-01-18 23:56] LABS: Glucose,Whole Blood 188 mg/dL (75-99)
[2020-01-19] MEDS: AMIODARONE 300 MG in DEXTROSE 5% IN WATER 250 ML IV SCH ×2 (01:29)
[2020-01-19 04:59] LABS: ABG Base Excess -3.8 mmol/L; ABG HCO3 23 mmol/L (21-25); ABG Oxygen Saturation 98.6 % (94-97); ABG PCO2 46 mmHg (35-45); ABG PO2 99 mmHg (83-108); ABG TCO2 24 mmol/L (19-24); Allen Test Performed? Yes
[2020-01-19 05:43] LABS: Glucose,Whole Blood 225 mg/dL (75-99)
[2020-01-19] MEDS: INSULIN ASPART (NovoLOG) 100 UNIT/ML VIAL SQ SCH ×3 (05:50→18:42)
[2020-01-19 05:56] LABS: Basophils % (A) 0 %; Eosinophils % (A) 0 %; HCT 26.2 % (34.0-46.0); HGB 8.5 gm/dL (11.4-16.0); Lymphocytes # (A) 0.2 k/uL (1.0-4.8); Lymphocytes % (A) 1 %; MCH 30.1 pg (25.0-35.0); MCHC 32.4 g/dL (31.0-37.0); MCV 92.9 fL (80.0-100.0); Monocytes # (A) 0.3 k/uL (0-1.0); Monocytes % (A) 2 %; Neutrophils # (A) 10.8 k/uL (1.3-7.7); Neutrophils % (A) 96 %; RBC 2.82 m/uL (3.80-5.40); RDW 14.3 % (11.5-15.5); WBC 11.3 k/uL (3.8-10.6)
[2020-01-19 05:58] LABS: Platelet Count 50 k/uL (150-450)
[2020-01-19 06:09] LABS: Magnesium 2.7 mg/dL (1.6-2.3)
[2020-01-19 06:14] LABS: D-Dimer 9.45 mg/L FEU (<0.60); INR 0.9 (<1.2); Partial Thromboplastin Time 22.2 sec (22.0-30.0); Prothrombin Time 9.9 sec (9.0-12.0)
[2020-01-19 06:15] LABS: Albumin 1.7 g/dL (3.5-5.0); C Reactive Protein 45.6 mg/L (<10.0); Calcium 7.6 mg/dL (8.4-10.2); Magnesium 2.6 mg/dL (1.6-2.3); Total Bilirubin 0.6 mg/dL (0.2-1.3); Total Protein 3.9 g/dL (6.3-8.2)
[2020-01-19 07:08] LABS: Potassium 4.5 mmol/L (3.5-5.1)
[2020-01-19] MEDS: ALBUTEROL HFA INHALER INHALATION SCH ×4 (07:46→18:59)
--- NOTE | 2020-01-19 08:57 | XR ---
EXAMINATION TYPE: XR chest 1V portable DATE OF EXAM: 01/19/2020 COMPARISON: 01/18/2020 INDICATION: Tube placement TECHNIQUE: Single frontal view of the chest is obtained. FINDINGS: The heart size is normal. The pulmonary vasculature is normal. Left pleural effusion is present. Right central venous catheter with tip in the right atrial region i s present. Endotracheal tube tip is above the ollie. Nasogastric tube transverses the thorax Mild diffuse infiltrate is present. IMPRESSION: 1. Mild diffuse increase infiltrate with small left pleural effusion. Correlate for atypical pneumoni a.
[2020-01-19] MEDS: ENOXAPARIN 80 MG/0.8 ML SYRINGE SQ SCH (09:54)
[2020-01-19] MEDS: CEFEPIME 1 GM in SODIUM CHLORIDE 0.9% 50 ML IVPB SCH ×2 (09:54→20:10)
[2020-01-19] MEDS: FAMOTIDINE 20 MG TAB PO SCH (09:55)
[2020-01-19] MEDS: CHOLECALCIFEROL 1,000 UNIT TAB PO SCH (09:55)
[2020-01-19] MEDS: ASCORBIC ACID 500 MG TAB PO SCH (09:55)
[2020-01-19] MEDS: CHLORHEXIDINE GLUCONATE 15 ML CUP MUCOUS MEM SCH ×2 (09:55→20:10)
[2020-01-19] MEDS: ZINC SULFATE 220 MG CAP PO SCH (09:55)
[2020-01-19] MEDS: AMIODARONE 200 MG TAB PO SCH ×2 (09:55→20:10)
[2020-01-19 11:27] LABS: Glucose,Whole Blood 208 mg/dL (75-99)
--- NOTE | 2020-01-19 11:55 | P.PN ---
Subjective Patient is seen in follow-up for acute kidney injury. Renal function better. Maintained on normal saline. Nonoliguric. Now on oral amiodarone. Levophed stopped this morning. Intubated with 50% FiO2. Vital signs are stable. Off vasopressors. Intubated. Regular rhythm noted on the monitor. No gross edema. Exam discussed with the nurse. Objective - Vital Signs Vital signs: Vital Signs Temp 98.2 F 01/19/20 08:00 Pulse 67 01/19/20 11:00 Resp 20 01/19/20 11:00 BP 117/68 01/19/20 10:30 Pulse Ox 94 L 01/19/20 11:00 Intake & Output 01/18/20 01/19/20 01/19/20 18:59 06:59 18:59 Intake Total 1633.400 9644.769 191.343 Output Total 860 1115 85 Balance 1020.317 935.769 106.343 Weight 88.2 kg Intake: IV 412 122 6 .9 @ KVO 40 Cefepime 1 gm In Sodium 50 50 Chloride 0.9% 50 ml @ 12. 5 mls/hr IVPB Q12HR PENDING SALE TO [facility] Rx#:[id number] Dextrose 5% in Water 1, 250 000 ml @ 125 mls/hr IV . Q9H12M [facility] with Sodium Bicarb (1 Meq/ml) 150 ml Rx#:[id number] pressure bags 72 72 6 Intake, IV Titration 137.701 8446.769 86.343 Amount Amiodarone 300 mg In 232.5 Dextrose 5% in Water 250 ml @ 0.5 MG/MIN 25 mls/hr IV .Q10H [facility]END[facility] TO [facility] Rx#: [id number] Amiodarone 360 mg In 135.554 Dextrose 5% in Water 200 ml @ 1 MG/MIN 33.333 mls/ hr IV .Q6H ONE Rx#: [id number] Norepinephrine 8 mg In 41.973 31.784 11.343 Sodium Chloride 0.9% 250 ml @ 0.05 MCG/KG/MIN 6. 763 mls/hr IV .Q24H [facility] Rx#:[id number] Sodium Chloride 0.9% 1, 675 900 75 000 ml @ 75 mls/hr IV . [id number] [facility]ENDING SALE TO [facility] Rx#:[id number] propofoL 1,000 mg In 142.790 278.485 Empty Bag 1 bag @ Titrate IV .Q0M PENDING SALE TO [facility] Rx#: [id number] Tube Feeding 383 396 99 Other 90 90 Output: Urine 860 1115 85 Other: Voiding Method Indwelling Catheter Indwelling Catheter ABP, PAP, CO, CI - Last Documented Arterial Blood Pressure 116/55 - Labs CBC & Chem 7: 01/19/20 05:35 01/19/20 05:35 Labs: Abnormal Lab Results - Last 24 Hours (Table) 01/18/20 01/18/20 01/18/20 Range/Units 04:05 17:30 23:54 WBC (3.8-10.6) k/uL RBC (3.80-5.40) m/uL Hgb (11.4-16.0) gm/dL Hct (34.0-46.0) % Plt Count (150-450) k/uL Neutrophils # (1.3-7.7) k/uL Lymphocytes # (1.0-4.8) k/uL D-Dimer (<0.60) mg/L FEU ABG pH (7.35-7.45) ABG pCO2 (35-45) mmHg ABG O2 Saturation (94-97) % Chloride (98-107) mmol/L BUN (7-17) mg/dL Creatinine (0.52-1.04) mg/dL Glucose (74-99) mg/dL POC Glucose (mg/dL) 191 H 188 H (75-99) mg/dL Calcium (8.4-10.2) mg/dL Magnesium 2.7 H (1.6-2.3) mg/dL Lactate Dehydrogenase 1600 H (313-618) U/L C-Reactive Protein (<10.0) mg/L Total Protein (6.3-8.2) g/dL Albumin (3.5-5.0) g/dL 01/19/20 01/19/20 01/19/20 Range/Units 04:55 05:35 05:35 WBC 11.3 H (3.8-10.6) k/uL RBC 2.82 L (3.80-5.40) m/uL Hgb 8.5 L (11.4-16.0) gm/dL Hct 26.2 L (34.0-46.0) % Plt Count 50 L (150-450) k/uL Neutrophils # 10.8 H (1.3-7.7) k/uL Lymphocytes # 0.2 L (1.0-4.8) k/uL D-Dimer 9.45 H (<0.60) mg/L FEU ABG pH 7.30 L (7.35-7.45) ABG pCO2 46 H (35-45) mmHg ABG O2 Saturation 98.6 H (94-97) % Chloride (98-107) mmol/L BUN (7-17) mg/dL Creatinine (0.52-1.04) mg/dL Glucose (74-99) mg/dL POC Glucose (mg/dL) (75-99) mg/dL Calcium (8.4-10.2) mg/dL Magnesium (1.6-2.3) mg/dL Lactate Dehydrogenase (313-618) U/L C-Reactive Protein (<10.0) mg/L Total Protein (6.3-8.2) g/dL Albumin (3.5-5.0) g/dL 01/19/20 01/19/20 01/19/20 Range/Units 05:35 05:42 11:25 WBC (3.8-10.6) k/uL RBC (3.80-5.40) m/uL Hgb (11.4-16.0) gm/dL Hct (34.0-46.0) % Plt Count (150-450) k/uL Neutrophils # (1.3-7.7) k/uL Lymphocytes # (1.0-4.8) k/uL D-Dimer (<0.60) mg/L FEU ABG pH (7.35-7.45) ABG pCO2 (35-45) mmHg ABG O2 Saturation (94-97) % Chloride 114 H (98-107) mmol/L BUN 80 H (7-17) mg/dL Creatinine 1.29 H (0.52-1.04) mg/dL Glucose 202 H (74-99) mg/dL POC Glucose (mg/dL) 225 H 208 H (75-99) mg/dL Calcium 7.6 L (8.4-10.2) mg/dL Magnesium 2.6 H (1.6-2.3) mg/dL Lactate Dehydrogenase 1308 H (313-618) U/L C-Reactive Protein 45.6 H (<10.0) mg/L Total Protein 3.9 L (6.3-8.2) g/dL Albumin 1.7 L (3.5-5.0) g/dL Microbiology - Last 24 Hours (Table) 01/17/20 09:11 Blood Culture - Preliminary Blood No Growth after 48 hours 01/17/20 09:11 Blood Culture - Preliminary Blood No Growth after 48 hours 01/17/20 15:20 Urine Culture - Preliminary Urine,Catheterized Gram Neg Bacilli Group D Enterococcus Assessment and Plan Plan: Assessment: 1. Acute kidney injury secondary to ATN secondary to septic shock. Baseline creatinine 1 - peaked at 1.63 this admission - 1.29 today. Now nonoliguric. 2. Metabolic acidosis secondary to acute kidney injury. Resolved. Status post bicarb drip. 3. Septic shock secondary to COVID-19 maintained on steroids and zinc. Off levophed. Status post remdesivir. 4. PE maintained on anticoagulation. 5. A. fib with RVR maintained on oral amiodarone. Cardiology following. 6. Hyperphosphatemia secondary to acute kidney injury. Expect improvement with improving urine output. 7. UTI with urine culture positive for group D enterococcus maintained on antibiotics. Plan: Decreased normal saline to 50 mL an hour. Also receiving tube feeding. Wean FiO2. Continue to monitor renal function and urine output. Repeat phosphorus level.
--- NOTE | 2020-01-19 12:26 | P.PN ---
Subjective this is a pleasant 79-year-old female past medical history significant for hypertension and DVT. She is currently being treated for cold with 19, acute PE and new onset atrial fibrillation. Yesterday she had episodes of A. fib with RVR and amiodarone infusion was initiated per the critical care team. Telemetry tracings indicate she has converted to sinus mechanism with some PAC's noted on tracings. Blood pressure 110/53 heart rate 59 mechanically ventilated and afebrile. Chest xray this morning revealed increasing infiltrate with small pleu ral effusion. She appears comfortable in bed on mechanical ventilator. Laboratory data reviewed, WBC 11.3, hemoglobin 8.5, platelets 50, sodium 138, potassium 4.5, creatinine 1.29, magnesium 2.6. GENERAL: Well-appearing, well-nourished and in no acute distress. NECK: Supple without JVD or thyromegaly. LUNGS: Breath sounds clear to auscultation bilaterally. Respiration equal and unlabored. No wheezes, rales or rhonchi. HEART: Regular rate and rhythm without murmurs, rubs or gallops. S1 and S2 heard. EXTREMITIES: Normal range of motion, no edema. No clubbing or cyanosis. Peripheral pulses intact. ASSESSMENT new onset paroxysmal atrial fibrillation with rapid ventricular rate Covid 19 Pulmonary embolism, being treated with lovenox Leukocytosis Thrombocytopenia History of hypertension History of DVT on anticoagulation prior to arrival PLAN Amiodarone infusion complete, we will initiate oral at 400 mg BID and taper accordingly. Currently she is on levophed which is being weaned off. No beta blockers at this time. Rate is controlled currently. Will consider adding if she can tolerate down the road. Nurse Practitioner note has been reviewed, I agree with a documented findings and plan of care. Patient was seen and examined. Objective - Vital Signs Vital signs: Vital Signs Temp 98.2 F 01/19/20 08:00 Pulse 67 01/19/20 11:00 Resp 20 01/19/20 11:00 BP 117/68 01/19/20 10:30 Pulse Ox 94 L 01/19/20 11:00 Intake & Output 01/18/20 01/19/20 01/19/20 18:59 06:59 18:59 Intake Total 8051.090 9488.769 191.343 Output Total 860 1115 85 Balance 1020.317 935.769 106.343 Weight 88.2 kg Intake: IV 412 122 6 .9 @ KVO 40 Cefepime 1 gm In Sodium 50 50 Chloride 0.9% 50 ml @ 12. 5 mls/hr IVPB Q12HR REPLACED BY [facility] Rx#:[id number] Dextrose 5% in Water 1, 250 000 ml @ 125 mls/hr IV . Q9H12M [facility] with Sodium Bicarb (1 Meq/ml) 150 ml Rx#:[id number] pressure bags 72 72 6 Intake, IV Titration 304.755 3111.769 86.343 Amount Amiodarone 300 mg In 232.5 Dextrose 5% in Water 250 ml @ 0.5 MG/MIN 25 mls/hr IV .Q10H REPLACED BY [facility] Rx#: [id number] Amiodarone 360 mg In 135.554 Dextrose 5% in Water 200 ml @ 1 MG/MIN 33.333 mls/ hr IV .Q6H ONE Rx#: [id number] Norepinephrine 8 mg In 41.973 31.784 11.343 Sodium Chloride 0.9% 250 ml @ 0.05 MCG/KG/MIN 6. 763 mls/hr IV .Q24H REPLACED BY [facility] Rx#:[id number] Sodium Chloride 0.9% 1, 675 900 75 000 ml @ 75 mls/hr IV . [id number] REPLACED BY [facility] Rx#:[id number] propofoL 1,000 mg In 142.790 278.485 Empty Bag 1 bag @ Titrate IV .Q0M REPLACED BY [facility] Rx#: [id number] Tube Feeding 383 396 99 Other 90 90 Output: Urine 860 1115 85 Other: Voiding Method Indwelling Catheter Indwelling Catheter ABP, PAP, CO, CI - Last Documented Arterial Blood Pressure 116/55 - Labs CBC & Chem 7: 01/19/20 05:35 01/19/20 05:35 Labs: Abnormal Lab Results - Last 24 Hours (Table) 01/18/20 01/18/20 01/18/20 Range/Units 04:05 17:30 23:54 WBC (3.8-10.6) k/uL RBC (3.80-5.40) m/uL Hgb (11.4-16.0) gm/dL Hct (34.0-46.0) % Plt Count (150-450) k/uL Neutrophils # (1.3-7.7) k/uL Lymphocytes # (1.0-4.8) k/uL D-Dimer (<0.60) mg/L FEU ABG pH (7.35-7.45) ABG pCO2 (35-45) mmHg ABG O2 Saturation (94-97) % Chloride (98-107) mmol/L BUN (7-17) mg/dL Creatinine (0.52-1.04) mg/dL Glucose (74-99) mg/dL POC Glucose (mg/dL) 191 H 188 H (75-99) mg/dL Calcium (8.4-10.2) mg/dL Magnesium 2.7 H (1.6-2.3) mg/dL Lactate Dehydrogenase 1600 H (313-618) U/L C-Reactive Protein (<10.0) mg/L Total Protein (6.3-8.2) g/dL Albumin (3.5-5.0) g/dL 01/19/20 01/19/20 01/19/20 Range/Units 04:55 05:35 05:35 WBC 11.3 H (3.8-10.6) k/uL RBC 2.82 L (3.80-5.40) m/uL Hgb 8.5 L (11.4-16.0) gm/dL Hct 26.2 L (34.0-46.0) % Plt Count 50 L (150-450) k/uL Neutrophils # 10.8 H (1.3-7.7) k/uL Lymphocytes # 0.2 L (1.0-4.8) k/uL D-Dimer 9.45 H (<0.60) mg/L FEU ABG pH 7.30 L (7.35-7.45) ABG pCO2 46 H (35-45) mmHg ABG O2 Saturation 98.6 H (94-97) % Chloride (98-107) mmol/L BUN (7-17) mg/dL Creatinine (0.52-1.04) mg/dL Glucose (74-99) mg/dL POC Glucose (mg/dL) (75-99) mg/dL Calcium (8.4-10.2) mg/dL Magnesium (1.6-2.3) mg/dL Lactate Dehydrogenase (313-618) U/L C-Reactive Protein (<10.0) mg/L Total Protein (6.3-8.2) g/dL Albumin (3.5-5.0) g/dL 01/19/20 01/19/20 01/19/20 Range/Units 05:35 05:42 11:25 WBC (3.8-10.6) k/uL RBC (3.80-5.40) m/uL Hgb (11.4-16.0) gm/dL Hct (34.0-46.0) % Plt Count (150-450) k/uL Neutrophils # (1.3-7.7) k/uL Lymphocytes # (1.0-4.8) k/uL D-Dimer (<0.60) mg/L FEU ABG pH (7.35-7.45) ABG pCO2 (35-45) mmHg ABG O2 Saturation (94-97) % Chloride 114 H (98-107) mmol/L BUN 80 H (7-17) mg/dL Creatinine 1.29 H (0.52-1.04) mg/dL Glucose 202 H (74-99) mg/dL POC Glucose (mg/dL) 225 H 208 H (75-99) mg/dL Calcium 7.6 L (8.4-10.2) mg/dL Magnesium 2.6 H (1.6-2.3) mg/dL Lactate Dehydrogenase 1308 H (313-618) U/L C-Reactive Protein 45.6 H (<10.0) mg/L Total Protein 3.9 L (6.3-8.2) g/dL Albumin 1.7 L (3.5-5.0) g/dL Microbiology - Last 24 Hours (Table) 01/17/20 09:11 Blood Culture - Preliminary Blood No Growth after 48 hours 01/17/20 09:11 Blood Culture - Preliminary Blood No Growth after 48 hours 01/17/20 15:20 Urine Culture - Preliminary Urine,Catheterized Gram Neg Bacilli Group D Enterococcus
[2020-01-19] MEDS: SODIUM CHLORIDE 0.9% 1,000 ML IV SCH (13:31)
--- NOTE | 2020-01-19 15:09 | P.PN ---
Subjective Progress Note Date: 01/19/20 Principal diagnosis: Acute hypoxic regular failure secondary to covid and 19 related pneumonia. On today's evaluation of 01/12/2020, the patient is being seen in follow-up. As mentioned earlier, the patient was infected with jane virus Covid 19 and the patient had an acute Covid 19 related pneumonia with diffuse breath and pulmonary infiltrates. Subsequently, the patient had a CT angios of the chest that showed bilateral pulmonary infiltrates and groundglass opacities in addition to pulmonary embolism involving mainly the right-sided pulmonary artery branches. Filling defect in the right pulmonary artery and segmental branches in addition to that there is a mild component of strain pattern. Nevertheless, tachycardic and short and a ejection fraction of 6065% and the patient had no enlargement of the right ventricle and there was no evidence of any pulmonary hypertension. Noted the patient oxidation is gradually gotten worse and currently the patient is on high flow oxygen at 6 L with an FiO2 of 85% and this was utilized to bring the saturation above 90%. The patient is on IV heparin with a therapeutic PTT of 58.7. Based on the acute jane virus Covid 19 infection, the patient had an LDH of 1455 and a CRP is at 47.9. The patient is having difficulty breathing with minimal amount of activity. Currently she is on bedrest. The patient has no pleurisy. No hemoptysis. Altered mentation. No other significant events overnight. Based on the worsening oxygenation, repeat chest x-ray was done and showed a patchy bilateral pulmonary infiltrates right more than left. No pleural effusion. The findings are essentially stable compared to yesterday's chest x-ray. On 01/18/2020, the patient remains intubated on a mechanical ventilator. This morning, the patient sedated with propofol and is calm and comfortable. Propofol is running at 50 mcg/kg per minute. The patient remained on assist control mode of ventilation. She is on a tidal volume of 451 and FiO2 of 50% with a PEEP of 12 and a rate of 14. The patient's blood gases showed a pH of 7.21 with episodes of 56 and pO2 of 126. The peak airway pressure is 30. The static airway pressure is 28. Chest x-ray remains unchanged. There is bilateral pulmonary infiltrates which remains essentially unchanged compared to yesterday. She has a triple lumen catheter. Her CVP is around 9. She did receive total of 2 L of IV fluids yesterday which both upper CVP and improved her blood pressure. She remains on a low dose norepinephrine infusion running at 0.04-respiratory KG per minute. She also has an acute kidney injury and a component of non-anion gap metabolic acidosis. Based on that, I gave her 2 A of sodium bicarbonate total of 100 mEq and the patient was also started on abicarb infusion. This improved her non-anion gap metabolic acidosis. The serum bicarb today is up to 24. Creatinine is at 1.6 with a BUN of 82. The patient meanwhile went into atrial fibrillation again with rapid ventricular response. Based on her hypotension, I opted to start the patient on amiodarone. I loaded her with a total of 150 mg of amiodarone bolus and I'm going to load completely over the next 24 hours. She is also on IV cefepime as an empiric antibiotic coverage. She is completed a course of Remdesivir ,, convalescent plasma 1 and the patient is also been on Decadron 6 mg every 24 hours. Reevaluated today on 01/26/20, patient remains in the ICU, intubated and mechanically ventilated. Ventilator settings are assist control rate of 18 tidal volume 450 FiO2 50% PEEP is 12. I did cut down the PEEP to 10 and increase the rate to 20. ABG today showed a pO2 of 98 pCO2 of 46 pH of 7.30. Patient is on IV fluid at 75 mL per hour, propofol at 40 mcg/kg/m, norepinephrine at 0.01 mcg/kg/m, amiodarone 0.5 mg per hour, patient is on Lovenox and on cefepime. Patient has a right subclavian triple-lumen catheter, and a right radial arterial line. Patient did receive 1 unit of convalescent plasma, and receivedremdesivir. Chest x-ray continues to show increase infiltrates with possibly a small left pleural effusion infiltrates are noted bilaterally., WBC count is 11.3 hemoglobin is 8.5. D-dimer is 9.45. BUN is 80 creatinine 1.29. I's are normal. LDH is 02/28/2007 and C-reactive protein is 45.6 Objective - Vital Signs Vital signs: Vital Signs Temp 97.3 F L 01/19/20 12:00 Pulse 76 01/19/20 14:30 Resp 20 01/19/20 14:30 BP 117/68 01/19/20 10:30 Pulse Ox 93 L 01/19/20 14:30 Intake & Output 01/18/20 01/19/20 01/19/20 18:59 06:59 18:59 Intake Total 7590.236 9133.769 797.343 Output Total 860 1115 340 Balance 1020.317 935.769 457.343 Weight 88.2 kg Intake: IV 412 122 446 .9 @ KVO 40 375 Cefepime 1 gm In Sodium 50 50 50 Chloride 0.9% 50 ml @ 12. 5 mls/hr IVPB Q12HR [facility] Rx#:[id number] Dextrose 5% in Water 1, 250 000 ml @ 125 mls/hr IV . Q9H12M [facility] with Sodium Bicarb (1 Meq/ml) 150 ml Rx#:[id number] pressure bags 72 72 21 Intake, IV Titration 333.897 3792.769 186.343 Amount Amiodarone 300 mg In 232.5 Dextrose 5% in Water 250 ml @ 0.5 MG/MIN 25 mls/hr IV .Q10H [facility] Rx#: [id number] Amiodarone 360 mg In 135.554 Dextrose 5% in Water 200 ml @ 1 MG/MIN 33.333 mls/ hr IV .Q6H ONE Rx#: [id number] Norepinephrine 8 mg In 41.973 31.784 11.343 Sodium Chloride 0.9% 250 ml @ 0.05 MCG/KG/MIN 6. 763 mls/hr IV .Q24H [facility] Rx#:[id number] Sodium Chloride 0.9% 1, 675 900 75 000 ml @ 75 mls/hr IV . [id number] [facility] Rx#:[id number] propofoL 1,000 mg In 142.790 278.485 100 Empty Bag 1 bag @ Titrate IV .Q0M [facility] Rx#: [id number] Tube Feeding 383 396 165 Other 90 90 Output: Urine 860 1115 340 Other: Voiding Method Indwelling Catheter Indwelling Catheter Indwelling Catheter ABP, PAP, CO, CI - Last Documented Arterial Blood Pressure 116/56 - Exam GENERAL EXAM: Alert, very pleasant 79-year-old female patient which is currently intubated on a mechanical ventilator. Orogastric and orotracheal tube are both in place. HEAD: Atraumatic, normocephalic. HEENT: PERRLA, EOMI, no icterus, no neck masses, no JVD, no stridor. .CHEST: No chest wall deformity. LUNGS: Equal air entry with scattered rhonchi., The patient is crackles lung bases bilaterally. CVS: S1 and S2 normal with no audible murmur, irregular rhythm. ABDOMEN: No hepatosplenomegaly, normal bowel sounds, no guarding or rigidity. SPINE: No scoliosis or deformity SKIN: No rashes CENTRAL NERVOUS SYSTEM: the patient is currently sedated, on mechanical ventilation could not assess Psychiatric: Could not assess. EXTREMITIES: There is no peripheral edema. No clubbing, no cyanosis. Peripheral pulses are intact. - Labs CBC & Chem 7: 01/19/20 05:35 01/19/20 05:35 Labs: Abnormal Lab Results - Last 24 Hours (Table) 01/18/20 01/18/20 01/18/20 Range/Units 04:05 17:30 23:54 WBC (3.8-10.6) k/uL RBC (3.80-5.40) m/uL Hgb (11.4-16.0) gm/dL Hct (34.0-46.0) % Plt Count (150-450) k/uL Neutrophils # (1.3-7.7) k/uL Lymphocytes # (1.0-4.8) k/uL D-Dimer (<0.60) mg/L FEU ABG pH (7.35-7.45) ABG pCO2 (35-45) mmHg ABG O2 Saturation (94-97) % Chloride (98-107) mmol/L BUN (7-17) mg/dL Creatinine (0.52-1.04) mg/dL Glucose (74-99) mg/dL POC Glucose (mg/dL) 191 H 188 H (75-99) mg/dL Calcium (8.4-10.2) mg/dL Magnesium 2.7 H (1.6-2.3) mg/dL Lactate Dehydrogenase 1600 H (313-618) U/L C-Reactive Protein (<10.0) mg/L Total Protein (6.3-8.2) g/dL Albumin (3.5-5.0) g/dL 01/19/20 01/19/20 01/19/20 Range/Units 04:55 05:35 05:35 WBC 11.3 H (3.8-10.6) k/uL RBC 2.82 L (3.80-5.40) m/uL Hgb 8.5 L (11.4-16.0) gm/dL Hct 26.2 L (34.0-46.0) % Plt Count 50 L (150-450) k/uL Neutrophils # 10.8 H (1.3-7.7) k/uL Lymphocytes # 0.2 L (1.0-4.8) k/uL D-Dimer 9.45 H (<0.60) mg/L FEU ABG pH 7.30 L (7.35-7.45) ABG pCO2 46 H (35-45) mmHg ABG O2 Saturation 98.6 H (94-97) % Chloride (98-107) mmol/L BUN (7-17) mg/dL Creatinine (0.52-1.04) mg/dL Glucose (74-99) mg/dL POC Glucose (mg/dL) (75-99) mg/dL Calcium (8.4-10.2) mg/dL Magnesium (1.6-2.3) mg/dL Lactate Dehydrogenase (313-618) U/L C-Reactive Protein (<10.0) mg/L Total Protein (6.3-8.2) g/dL Albumin (3.5-5.0) g/dL 01/19/20 01/19/20 01/19/20 Range/Units 05:35 05:42 11:25 WBC (3.8-10.6) k/uL RBC (3.80-5.40) m/uL Hgb (11.4-16.0) gm/dL Hct (34.0-46.0) % Plt Count (150-450) k/uL Neutrophils # (1.3-7.7) k/uL Lymphocytes # (1.0-4.8) k/uL D-Dimer (<0.60) mg/L FEU ABG pH (7.35-7.45) ABG pCO2 (35-45) mmHg ABG O2 Saturation (94-97) % Chloride 114 H (98-107) mmol/L BUN 80 H (7-17) mg/dL Creatinine 1.29 H (0.52-1.04) mg/dL Glucose 202 H (74-99) mg/dL POC Glucose (mg/dL) 225 H 208 H (75-99) mg/dL Calcium 7.6 L (8.4-10.2) mg/dL Magnesium 2.6 H (1.6-2.3) mg/dL Lactate Dehydrogenase 1308 H (313-618) U/L C-Reactive Protein 45.6 H (<10.0) mg/L Total Protein 3.9 L (6.3-8.2) g/dL Albumin 1.7 L (3.5-5.0) g/dL Microbiology - Last 24 Hours (Table) 01/17/20 09:11 Blood Culture - Preliminary Blood No Growth after 48 hours 01/17/20 09:11 Blood Culture - Preliminary Blood No Growth after 48 hours 01/17/20 15:20 Urine Culture - Preliminary Urine,Catheterized Gram Neg Bacilli Group D Enterococcus Assessment and Plan Assessment: Impression: Acute hypoxic respiratory failure with bilateral pneumonia secondary to Covid 19 pneumonitis. Acute right sided pulmonary embolism and hypercoagulability secondary to jane virus infection. Recurrent atrial fibrillation, maintained on amiodarone. And on anticoagulations therapy. Remote history of deep vein thrombosis patient has been on Xarelto on outpatient basis. Acute kidney injury. Elevated d-dimer. Hypercoagulable state. Recommendation: Continue ventilatory support. Continue nutritional support. Continue anticoagulation therapy./Lovenox therapeutic dose 1 mg/kg every 12 hours. Patient already received convalescent plasma, she also received remdesivir Continue amiodarone. Continue to monitor renal profile. Continue GI prophylaxis. Hemodynamic support if necessary. Continue to monitor daily x-rays and daily blood gases. Not ready for any weaning considering the patient is still on relatively high FiO2 and high PEEP. However will awaken the patient and assess mental status at least today. Patient remains critically ill. And critical care time is 32 minutes. Time with Patient: Greater than 30
--- NOTE | 2020-01-19 16:37 | P.PN ---
Subjective Progress Note Date: 01/19/20 Patient is sedated and intubated. Nursing staff informing the blood glucose is been running greater than 180 most of the time No spontaneous breathing trial plan for today Objective - Vital Signs Vital signs: Vital Signs Temp 97.5 F L 01/19/20 16:00 Pulse 60 01/19/20 16:00 Resp 21 01/19/20 16:00 BP 117/68 01/19/20 10:30 Pulse Ox 92 L 01/19/20 16:00 Intake & Output 01/18/20 01/19/20 01/19/20 18:59 06:59 18:59 Intake Total 4729.581 5507.769 1114.509 Output Total 860 1115 652 Balance 1020.317 935.769 462.509 Weight 88.2 kg Intake: IV 412 122 658 .9 @ KVO 40 575 Cefepime 1 gm In Sodium 50 50 50 Chloride 0.9% 50 ml @ 12. 5 mls/hr IVPB Q12HR [facility] Rx#:[id number] Dextrose 5% in Water 1, 250 000 ml @ 125 mls/hr IV . Q9H12M [facility] with Sodium Bicarb (1 Meq/ml) 150 ml Rx#:[id number] pressure bags 72 72 33 Intake, IV Titration 271.401 6071.769 258.509 Amount Amiodarone 300 mg In 232.5 Dextrose 5% in Water 250 ml @ 0.5 MG/MIN 25 mls/hr IV .Q10H [facility] Rx#: [id number] Amiodarone 360 mg In 135.554 Dextrose 5% in Water 200 ml @ 1 MG/MIN 33.333 mls/ hr IV .Q6H [facility] Rx#: [id number] Norepinephrine 8 mg In 41.973 31.784 11.343 Sodium Chloride 0.9% 250 ml @ 0.05 MCG/KG/MIN 6. 763 mls/hr IV .Q24H [facility] Rx#:[id number] Sodium Chloride 0.9% 1, 675 900 75 000 ml @ 75 mls/hr IV . [id number] [facility] Rx#:[id number] propofoL 1,000 mg In 142.790 278.485 172.166 Empty Bag 1 bag @ Titrate IV .Q0M [facility] Rx#: [id number] Tube Feeding 383 396 198 Other 90 90 Output: Urine 860 1115 652 Other: Voiding Method Indwelling Catheter Indwelling Catheter Indwelling Catheter ABP, PAP, CO, CI - Last Documented Arterial Blood Pressure 124/57 - Exam General: The patient is sedated and intubated Eye: there is normal conjunctiva bilaterally. Neck: The neck is supple, there is no JVD. Cardiovascular: Normal S1-S2, no S3-S4, no murmurs. Respiratory: Lungs with mechanical ventilator sounds Gastrointestinal: Abdomen is soft, nontender Musculoskeletal: There is no pedal edema. Skin: Skin is warm and dry - Labs CBC & Chem 7: 01/19/20 05:35 01/19/20 05:35 Labs: Abnormal Lab Results - Last 24 Hours (Table) 01/18/20 01/18/20 01/18/20 Range/Units 04:05 17:30 23:54 WBC (3.8-10.6) k/uL RBC (3.80-5.40) m/uL Hgb (11.4-16.0) gm/dL Hct (34.0-46.0) % Plt Count (150-450) k/uL Neutrophils # (1.3-7.7) k/uL Lymphocytes # (1.0-4.8) k/uL D-Dimer (<0.60) mg/L FEU ABG pH (7.35-7.45) ABG pCO2 (35-45) mmHg ABG O2 Saturation (94-97) % Chloride (98-107) mmol/L BUN (7-17) mg/dL Creatinine (0.52-1.04) mg/dL Glucose (74-99) mg/dL POC Glucose (mg/dL) 191 H 188 H (75-99) mg/dL Calcium (8.4-10.2) mg/dL Magnesium 2.7 H (1.6-2.3) mg/dL Lactate Dehydrogenase 1600 H (313-618) U/L C-Reactive Protein (<10.0) mg/L Total Protein (6.3-8.2) g/dL Albumin (3.5-5.0) g/dL 01/19/20 01/19/20 01/19/20 Range/Units 04:55 05:35 05:35 WBC 11.3 H (3.8-10.6) k/uL RBC 2.82 L (3.80-5.40) m/uL Hgb 8.5 L (11.4-16.0) gm/dL Hct 26.2 L (34.0-46.0) % Plt Count 50 L (150-450) k/uL Neutrophils # 10.8 H (1.3-7.7) k/uL Lymphocytes # 0.2 L (1.0-4.8) k/uL D-Dimer 9.45 H (<0.60) mg/L FEU ABG pH 7.30 L (7.35-7.45) ABG pCO2 46 H (35-45) mmHg ABG O2 Saturation 98.6 H (94-97) % Chloride (98-107) mmol/L BUN (7-17) mg/dL Creatinine (0.52-1.04) mg/dL Glucose (74-99) mg/dL POC Glucose (mg/dL) (75-99) mg/dL Calcium (8.4-10.2) mg/dL Magnesium (1.6-2.3) mg/dL Lactate Dehydrogenase (313-618) U/L C-Reactive Protein (<10.0) mg/L Total Protein (6.3-8.2) g/dL Albumin (3.5-5.0) g/dL 01/19/20 01/19/20 01/19/20 Range/Units 05:35 05:42 11:25 WBC (3.8-10.6) k/uL RBC (3.80-5.40) m/uL Hgb (11.4-16.0) gm/dL Hct (34.0-46.0) % Plt Count (150-450) k/uL Neutrophils # (1.3-7.7) k/uL Lymphocytes # (1.0-4.8) k/uL D-Dimer (<0.60) mg/L FEU ABG pH (7.35-7.45) ABG pCO2 (35-45) mmHg ABG O2 Saturation (94-97) % Chloride 114 H (98-107) mmol/L BUN 80 H (7-17) mg/dL Creatinine 1.29 H (0.52-1.04) mg/dL Glucose 202 H (74-99) mg/dL POC Glucose (mg/dL) 225 H 208 H (75-99) mg/dL Calcium 7.6 L (8.4-10.2) mg/dL Magnesium 2.6 H (1.6-2.3) mg/dL Lactate Dehydrogenase 1308 H (313-618) U/L C-Reactive Protein 45.6 H (<10.0) mg/L Total Protein 3.9 L (6.3-8.2) g/dL Albumin 1.7 L (3.5-5.0) g/dL Microbiology - Last 24 Hours (Table) 01/17/20 09:11 Blood Culture - Preliminary Blood No Growth after 48 hours 01/17/20 09:11 Blood Culture - Preliminary Blood No Growth after 48 hours 01/17/20 15:20 Urine Culture - Preliminary Urine,Catheterized Gram Neg Bacilli Group D Enterococcus Assessment and Plan Assessment: This is a 79-year-old female with complex past medical history noted below who presented to the hospital with generalized fatigue and worsening shortness of breath. Patient was diagnosed with Covid19 I week ago prior to her presentation after she was tested approximately 2 weeks ago. She finished azithromycin course at home. Patient was evaluated in the ER and currently admitted to the hospital for further management of medical problems noted below. 1. Pulmonary embolism: Echocardiogram showed preserved EF with no evidence of right ventricular strain. Started on IV heparin and switched to Rivaroxaban 15 mg twice daily on 01/13 no switched to Lovenox on 01/15. Not a candidate for thrombolysis/EKOS as there is no evidence of right ventricular strain, discussed with Dr. Qureshi 2. Covid19 pneumonia, positive test at an outside facility a week ago prior to the presentation. Repeat PCR here in the hospital was also positive. started on dexamethasone 6 mg daily day #01/05. I discussed i discontinuation of Decadron with Dr. Geiger today. He recommended to continue with current dose and this time given no improvement in her chest x-ray. We will continue to mo nitor inflammatory markers. Pulmonary consulted for further evaluation, appreciate recommendations. Finished Remdesivir course on 01/15. Continue zinc, melatonin, and vitamin C daily. s/p convalescent plasma on 01/13 3. New onset atrial fibrillation with rapid ventricular response, currently r ate controlled. Thyroid function tests within normal range. Seen and evaluated by cardiology. Started metoprolol and Cardizem then transitioned to loading dose amiodarone given hypotension and currently on amiodarone twice daily. Continue litigation legal assistant. Patient already on anticoagulation secondary to PE. 4. Acute hypoxic respiratory failure secondary to #1 and 2. Requiring intubation and mechanical ventilation on 01/15. Bilateral groundglass opacity most likely secondary to Covid19. Started on IV cefepime on 01/15 for possible superimposed bacterial pneumonia and underlying UTI 5. Severe sepsis with septic shock on 01/15 requiring vasopressors, secondary to Covid-19. Lactic acid is normal. Improved with IV fluid hydration. Blood culture negative to date. 6. Acute kidney injury, oliguric. Her urine output improved significantly. Nephrology consulted for further management. 7. History of chronic DVT on anticoagulation with Rivaroxaban As an outpatient 8. Essential hypertension 9. CODE STATUS: Patient would like to be full code Today, I reviewed her medication list and lab work results. Continue ICU care. Patient remained in critical condition. Continue current regimen. Appreciate application development consultant's recommendations. Repeat lab work in the morning including inflammatory markers Vent management per ICU team. Today, I had a phone call with the patient daughter and . I gave them an update about her current critical condition. They are praying that she can make some progress in the next few days. Her daughter has a lot of questions about the ventilator settings and weaning criteria. I answered all of their questions to their satisfaction.
[2020-01-19 17:58] LABS: Glucose,Whole Blood 167 mg/dL (75-99)
[2020-01-19 18:34] LABS: Ferritin 520.8 ng/mL (10.0-291.0)
[2020-01-19] MEDS: dexAMETHasone 2 MG TAB PO SCH (20:10)
[2020-01-19] MEDS: polyethylene glycoL 3350 17 GM POWD.PACK PO SCH (20:11)
[2020-01-19] MEDS: MELATONIN 5 MG TABLET PO SCH (20:11)
[2020-01-19] MEDS: INSULIN DETEMIR (LEVEMIR) 100 UNIT/ML SYR SQ SCH (20:51)
[2020-01-20 00:33] LABS: Glucose,Whole Blood 186 mg/dL (75-99)
[2020-01-20 04:44] LABS: Basophils # (A) 0.1 k/uL (0-0.2); Basophils % (A) 1 %; Eosinophils % (A) 0 %; HCT 25.7 % (34.0-46.0); HGB 8.4 gm/dL (11.4-16.0); Lymphocytes # (A) 0.3 k/uL (1.0-4.8); Lymphocytes % (A) 3 %; MCH 30.3 pg (25.0-35.0); MCHC 32.7 g/dL (31.0-37.0); MCV 92.6 fL (80.0-100.0); Monocytes # (A) 0.3 k/uL (0-1.0); Monocytes % (A) 3 %; Neutrophils # (A) 9.4 k/uL (1.3-7.7); Neutrophils % (A) 94 %; RBC 2.78 m/uL (3.80-5.40); RDW 14.7 % (11.5-15.5)
[2020-01-20 04:54] LABS: ABG Base Excess -2.1 mmol/L; ABG HCO3 23 mmol/L (21-25); ABG Oxygen Saturation 97.8 % (94-97); ABG PCO2 40 mmHg (35-45); ABG PH 7.37 (7.35-7.45); ABG PO2 83 mmHg (83-108); ABG TCO2 25 mmol/L (19-24); Allen Test Performed? Yes
[2020-01-20 04:57] LABS: Platelet Count 63 k/uL (150-450)
[2020-01-20 05:09] LABS: Potassium 4.5 mmol/L (3.5-5.1)
[2020-01-20 05:10] LABS: Albumin 1.8 g/dL (3.5-5.0); Magnesium 2.5 mg/dL (1.6-2.3); Phosphorus 3.5 mg/dL (2.5-4.5); Total Bilirubin 0.6 mg/dL (0.2-1.3)
[2020-01-20 07:00] LABS: Glucose,Whole Blood 200 mg/dL (75-99)
[2020-01-20] MEDS: INSULIN ASPART (NovoLOG) 100 UNIT/ML VIAL SQ SCH ×5 (07:02→23:51)
[2020-01-20] MEDS: INSULIN DETEMIR (LEVEMIR) 100 UNIT/ML SYR SQ SCH ×2 (07:05→20:14)
[2020-01-20] MEDS: AMIODARONE 200 MG TAB PO SCH ×2 (08:45→20:14)
[2020-01-20] MEDS: CHOLECALCIFEROL 1,000 UNIT TAB PO SCH (08:45)
[2020-01-20] MEDS: FAMOTIDINE 20 MG TAB PO SCH (08:45)
[2020-01-20] MEDS: ASCORBIC ACID 500 MG TAB PO SCH (08:45)
[2020-01-20] MEDS: ENOXAPARIN 80 MG/0.8 ML SYRINGE SQ SCH ×2 (08:45→20:14)
[2020-01-20] MEDS: ZINC SULFATE 220 MG CAP PO SCH (08:45)
[2020-01-20] MEDS: CHLORHEXIDINE GLUCONATE 15 ML CUP MUCOUS MEM SCH ×2 (08:45→20:14)
[2020-01-20] MEDS: CEFEPIME 1 GM in SODIUM CHLORIDE 0.9% 50 ML IVPB SCH (08:45)
[2020-01-20] MEDS: SODIUM CHLORIDE 0.9% 1,000 ML IV SCH (08:46)
[2020-01-20] MEDS: ALBUTEROL HFA INHALER INHALATION SCH ×4 (09:02→20:33)
--- NOTE | 2020-01-20 09:19 | XR ---
EXAMINATION TYPE: XR chest 1V portable DATE OF EXAM: 01/20/2020 Comparison: 01/19/2020 Clinical History: 79-year-old female Tube placement Findings: ET tube tip 2.4 cm from the ollie. NG tube courses below the diaphragm. Right subclavian CVC tip at the cavoatrial junction. Heart mildly enlarged. Hyperinflation. Interstitial opacities diffusely. Tl ateral hazy densities and blunting of the left costophrenic angle. Overall unchanged. Impression: 1. Correlate for COPD with superimposed interstitial lung disease, possible mild interstitial edema. 2. Continued small left pleural effusion with adjacent atelectasis and/or consolidation.
--- NOTE | 2020-01-20 10:48 | P.PN ---
Subjective this is a pleasant 79-year-old female past medical history significant for hypertension and DVT. The patient was not seen or examined secondary to covid 19 infection. Information was discussed with the nurse and the chart was extensively reviewed. She is currently being treated for cold with 19, acute PE and new onset atrial fibrillation. She is maintaining sinus mechanism. Blood pressure 146/46 heart rate 71 afebrile and maintaining oxygen saturation on mechanical ventilator. Laboratory data reviewed, WBC 10, hemoglobin 8.4, platelets 63, sodium 140, potassium 4.5, creatinine 1.05 and magnesium 2.5. she is currently maintained on lovenox 80mg daily and amiodarone 400 mg BID. ASSESSMENT New onset paroxysmal atrial fibrillation with rapid ventricular rate Covid 19 Pulmonary embolism, being treated with lovenox Leukocytosis Thromboctopenia History of hypertension History of DVT on anticoagulation prior to arrival PLAN Continue amiodarone for rhythm control. Outpatient taper has been ordered appropriately. She is maintaining sinus mechanism. Will re-evaluate in the outpatient setting and use beta blockers if she can tolerate. Lovenox dosing should be BID for therapeutic thromboembolic protection. We will follow along as needed, follow up with Dr. Gatica on discharge. Nurse Practitioner note has been reviewed, I agree with a documented findings and plan of care. Patient was seen and examined. Objective - Vital Signs Vital signs: Vital Signs Temp 97.9 F 01/20/20 08:00 Pulse 71 01/20/20 10:00 Resp 20 01/20/20 10:00 BP 117/68 01/19/20 10:30 Pulse Ox 91 L 01/20/20 10:00 Intake & Output 01/19/20 01/20/20 01/20/20 18:59 06:59 18:59 Intake Total 4035.526 0689.733 364 Output Total 883 1330 400 Balance 423.509 17.733 -36 Weight 88.1 kg Intake: IV 817 583 265 .9 @ KVO 725 470 200 Cefepime 1 gm In Sodium 50 50 50 Chloride 0.9% 50 ml @ 12. 5 mls/hr IVPB Q12HR [facility] Rx#:[id number] pressure bags 42 63 15 Intake, IV Titration 258.509 251.733 Amount Norepinephrine 8 mg In 11.343 Sodium Chloride 0.9% 250 ml @ 0.05 MCG/KG/MIN 6. 763 mls/hr IV .Q24H [facility] Rx#:[id number] Sodium Chloride 0.9% 1, 75 000 ml @ 75 mls/hr IV . [id number] [facility] Rx#:[id number] propofoL 1,000 mg In 172.166 251.733 Empty Bag 1 bag @ Titrate IV .Q0M [facility] Rx#: [id number] Tube Feeding 231 363 99 Other 150 Output: Urine 883 1330 400 Other: Voiding Method Indwelling Catheter Indwelling Catheter Indwelling Catheter ABP, PAP, CO, CI - Last Documented Arterial Blood Pressure 146/46 - Labs CBC & Chem 7: 01/20/20 04:30 01/20/20 04:30 Labs: Abnormal Lab Results - Last 24 Hours (Table) 01/19/20 01/19/20 01/19/20 Range/Units 05:35 11:25 17:57 RBC (3.80-5.40) m/uL Hgb (11.4-16.0) gm/dL Hct (34.0-46.0) % Plt Count (150-450) k/uL Neutrophils # (1.3-7.7) k/uL Lymphocytes # (1.0-4.8) k/uL ABG Total CO2 (19-24) mmol/L ABG O2 Saturation (94-97) % Chloride (98-107) mmol/L BUN (7-17) mg/dL Creatinine (0.52-1.04) mg/dL Glucose (74-99) mg/dL POC Glucose (mg/dL) 208 H 167 H (75-99) mg/dL Calcium (8.4-10.2) mg/dL Magnesium (1.6-2.3) mg/dL Ferritin 520.8 H (10.0-291.0) ng/mL Total Protein (6.3-8.2) g/dL Albumin (3.5-5.0) g/dL 01/20/20 01/20/20 01/20/20 Range/Units 00:32 04:30 04:30 RBC 2.78 L (3.80-5.40) m/uL Hgb 8.4 L (11.4-16.0) gm/dL Hct 25.7 L (34.0-46.0) % Plt Count 63 L (150-450) k/uL Neutrophils # 9.4 H (1.3-7.7) k/uL Lymphocytes # 0.3 L (1.0-4.8) k/uL ABG Total CO2 (19-24) mmol/L ABG O2 Saturation (94-97) % Chloride 116 H (98-107) mmol/L BUN 80 H (7-17) mg/dL Creatinine 1.05 H (0.52-1.04) mg/dL Glucose 189 H (74-99) mg/dL POC Glucose (mg/dL) 186 H (75-99) mg/dL Calcium 8.0 L (8.4-10.2) mg/dL Magnesium 2.5 H (1.6-2.3) mg/dL Ferritin (10.0-291.0) ng/mL Total Protein 4.0 L (6.3-8.2) g/dL Albumin 1.8 L (3.5-5.0) g/dL 01/20/20 01/20/20 Range/Units 04:49 06:59 RBC (3.80-5.40) m/uL Hgb (11.4-16.0) gm/dL Hct (34.0-46.0) % Plt Count (150-450) k/uL Neutrophils # (1.3-7.7) k/uL Lymphocytes # (1.0-4.8) k/uL ABG Total CO2 25 H (19-24) mmol/L ABG O2 Saturation 97.8 H (94-97) % Chloride (98-107) mmol/L BUN (7-17) mg/dL Creatinine (0.52-1.04) mg/dL Glucose (74-99) mg/dL POC Glucose (mg/dL) 200 H (75-99) mg/dL Calcium (8.4-10.2) mg/dL Magnesium (1.6-2.3) mg/dL Ferritin (10.0-291.0) ng/mL Total Protein (6.3-8.2) g/dL Albumin (3.5-5.0) g/dL Microbiology - Last 24 Hours (Table) 01/17/20 15:20 Urine Culture - Final Urine,Catheterized Escherichia coli Enterococcus faecalis 01/17/20 09:11 Blood Culture - Preliminary Blood No Growth after 48 hours 01/17/20 09:11 Blood Culture - Preliminary Blood No Growth after 48 hours
[2020-01-20 11:39] LABS: Glucose,Whole Blood 184 mg/dL (75-99)
--- NOTE | 2020-01-20 12:06 | P.PN ---
Subjective Progress Note Date: 01/20/20 Principal diagnosis: patient still intubated Objective - Vital Signs Vital signs: Vital Signs Temp 97.9 F 01/20/20 08:00 Pulse 58 L 01/20/20 11:30 Resp 20 01/20/20 11:30 BP 117/68 01/19/20 10:30 Pulse Ox 92 L 01/20/20 11:30 Intake & Output 01/19/20 01/20/20 01/20/20 18:59 06:59 18:59 Intake Total 5565.609 7904.733 364 Output Total 883 1330 400 Balance 423.509 17.733 -36 Weight 88.1 kg 88.1 kg Intake: IV 817 583 265 .9 @ KVO 725 470 200 Cefepime 1 gm In Sodium 50 50 50 Chloride 0.9% 50 ml @ 12. 5 mls/hr IVPB Q12HR [facility] Rx#:[id number] pressure bags 42 63 15 Intake, IV Titration 258.509 251.733 Amount Norepinephrine 8 mg In 11.343 Sodium Chloride 0.9% 250 ml @ 0.05 MCG/KG/MIN 6. 763 mls/hr IV .Q24H [facility] Rx#:[id number] Sodium Chloride 0.9% 1, 75 000 ml @ 75 mls/hr IV . [id number] [facility] Rx#:[id number] propofoL 1,000 mg In 172.166 251.733 Empty Bag 1 bag @ Titrate IV .Q0M [facility] Rx#: [id number] Tube Feeding 231 363 99 Other 150 Output: Urine 883 1330 400 Other: Voiding Method Indwelling Catheter Indwelling Catheter Indwelling Catheter ABP, PAP, CO, CI - Last Documented Arterial Blood Pressure 125/61 - Respiratory Respiratory: bilateral: diminished - Cardiovascular Rhythm: regular - Gastrointestinal General gastrointestinal: Present: decreased bowel sounds - Integumentary Integumentary Comment(s): oosing at site of CVL - Psychiatric Psychiatric Comment(s): limited - Labs CBC & Chem 7: 01/20/20 04:30 01/20/20 04:30 Labs: Abnormal Lab Results - Last 24 Hours (Table) 01/19/20 01/19/20 01/20/20 Range/Units 05:35 17:57 00:32 RBC (3.80-5.40) m/uL Hgb (11.4-16.0) gm/dL Hct (34.0-46.0) % Plt Count (150-450) k/uL Neutrophils # (1.3-7.7) k/uL Lymphocytes # (1.0-4.8) k/uL ABG Total CO2 (19-24) mmol/L ABG O2 Saturation (94-97) % Chloride (98-107) mmol/L BUN (7-17) mg/dL Creatinine (0.52-1.04) mg/dL Glucose (74-99) mg/dL POC Glucose (mg/dL) 167 H 186 H (75-99) mg/dL Calcium (8.4-10.2) mg/dL Magnesium (1.6-2.3) mg/dL Ferritin 520.8 H (10.0-291.0) ng/mL Total Protein (6.3-8.2) g/dL Albumin (3.5-5.0) g/dL 01/20/20 01/20/20 01/20/20 Range/Units 04:30 04:30 04:49 RBC 2.78 L (3.80-5.40) m/uL Hgb 8.4 L (11.4-16.0) gm/dL Hct 25.7 L (34.0-46.0) % Plt Count 63 L (150-450) k/uL Neutrophils # 9.4 H (1.3-7.7) k/uL Lymphocytes # 0.3 L (1.0-4.8) k/uL ABG Total CO2 25 H (19-24) mmol/L ABG O2 Saturation 97.8 H (94-97) % Chloride 116 H (98-107) mmol/L BUN 80 H (7-17) mg/dL Creatinine 1.05 H (0.52-1.04) mg/dL Glucose 189 H (74-99) mg/dL POC Glucose (mg/dL) (75-99) mg/dL Calcium 8.0 L (8.4-10.2) mg/dL Magnesium 2.5 H (1.6-2.3) mg/dL Ferritin (10.0-291.0) ng/mL Total Protein 4.0 L (6.3-8.2) g/dL Albumin 1.8 L (3.5-5.0) g/dL 01/20/20 01/20/20 Range/Units 06:59 11:37 RBC (3.80-5.40) m/uL Hgb (11.4-16.0) gm/dL Hct (34.0-46.0) % Plt Count (150-450) k/uL Neutrophils # (1.3-7.7) k/uL Lymphocytes # (1.0-4.8) k/uL ABG Total CO2 (19-24) mmol/L ABG O2 Saturation (94-97) % Chloride (98-107) mmol/L BUN (7-17) mg/dL Creatinine (0.52-1.04) mg/dL Glucose (74-99) mg/dL POC Glucose (mg/dL) 200 H 184 H (75-99) mg/dL Calcium (8.4-10.2) mg/dL Magnesium (1.6-2.3) mg/dL Ferritin (10.0-291.0) ng/mL Total Protein (6.3-8.2) g/dL Albumin (3.5-5.0) g/dL Microbiology - Last 24 Hours (Table) 01/17/20 09:11 Blood Culture - Preliminary Blood No Growth after 72 hours 01/17/20 09:11 Blood Culture - Preliminary Blood No Growth after 72 hours 01/17/20 15:20 Urine Culture - Final Urine,Catheterized Escherichia coli Enterococcus faecalis Assessment and Plan (1) Pulmonary embolism Narrative/Plan: continue Lovenox daily dosing per ICU team because of thrombocytopenia and bleeding discussed with RESEARCH TECH Current Visit: Yes Status: Acute Code(s): I26.99 - OTHER PULMONARY EMBOLISM WITHOUT ACUTE COR PULMONALE SNOMED Code(s): 45560014 (2) Ground glass opacity present on imaging of lung Narrative/Plan: Covid pna on Cefepime for possible bacterial super-infection, weaning planned for today Current Visit: Yes Status: Acute Code(s): R91.8 - OTHER NONSPECIFIC ABNORMAL FINDING OF LUNG FIELD SNOMED Code(s): 892337035 (3) Lab test positive for detection of COVID-19 virus Narrative/Plan: positive at outside facility, completed Azithromycin prior to amission, oc Decadron, s/p remdisivir course 01/15, /p convalescent plasma 01/13 Current Visit: Yes Status: Acute Code(s): U07.1 - COVID-19 SNOMED Code(s): 8747078630904439 (4) Thrombocytopenia associated with COVID-19 Narrative/Plan: monitoring Current Visit: Yes Status: Acute Code(s): U07.1 - COVID-19; D69.59 - OTHER SECONDARY THROMBOCYTOPENIA SNOMED Code(s): 576553646 (5) Atrial fibrillation Narrative/Plan: appreciate cardiology input on Amiodarone, rate controlled Current Visit: Yes Status: Acute Code(s): I48.91 - UNSPECIFIED ATRIAL FIBRILLATION SNOMED Code(s): 70293068
--- NOTE | 2020-01-20 12:24 | P.PN ---
Subjective Patient is seen in follow-up for acute kidney injury. Renal function continues to improve. Maintained on normal saline as well as tube feeding. Nonoliguric. Now on oral amiodarone. Remains off vasopressors. Vital signs are stable. Off vasopressors. Intubated. Regular rhythm noted on the monitor. No gross edema. Exam discussed with the nurse. Objective - Vital Signs Vital signs: Vital Signs Temp 97.9 F 01/20/20 08:00 Pulse 58 L 01/20/20 11:30 Resp 20 01/20/20 11:30 BP 117/68 01/19/20 10:30 Pulse Ox 92 L 01/20/20 11:30 Intake & Output 01/19/20 01/20/20 01/20/20 18:59 06:59 18:59 Intake Total 9326.223 7151.733 463.922 Output Total 883 1330 400 Balance 423.509 17.733 63.922 Weight 88.1 kg 88.1 kg Intake: IV 817 583 265 .9 @ KVO 725 470 200 Cefepime 1 gm In Sodium 50 50 50 Chloride 0.9% 50 ml @ 12. 5 mls/hr IVPB Q12HR [facility] Rx#:[id number] pressure bags 42 63 15 Intake, IV Titration 258.509 251.733 99.922 Amount Norepinephrine 8 mg In 11.343 Sodium Chloride 0.9% 250 ml @ 0.05 MCG/KG/MIN 6. 763 mls/hr IV .Q24H [facility] Rx#:[id number] Sodium Chloride 0.9% 1, 75 000 ml @ 75 mls/hr IV . [id number] [facility] Rx#:[id number] propofoL 1,000 mg In 172.166 251.733 99.922 Empty Bag 1 bag @ Titrate IV .Q0M [facility] Rx#: [id number] Tube Feeding 231 363 99 Other 150 Output: Urine 883 1330 400 Other: Voiding Method Indwelling Catheter Indwelling Catheter Indwelling Catheter ABP, PAP, CO, CI - Last Documented Arterial Blood Pressure 125/61 - Labs CBC & Chem 7: 01/20/20 04:30 01/20/20 04:30 Labs: Abnormal Lab Results - Last 24 Hours (Table) 01/19/20 01/19/20 01/20/20 Range/Units 05:35 17:57 00:32 RBC (3.80-5.40) m/uL Hgb (11.4-16.0) gm/dL Hct (34.0-46.0) % Plt Count (150-450) k/uL Neutrophils # (1.3-7.7) k/uL Lymphocytes # (1.0-4.8) k/uL ABG Total CO2 (19-24) mmol/L ABG O2 Saturation (94-97) % Chloride (98-107) mmol/L BUN (7-17) mg/dL Creatinine (0.52-1.04) mg/dL Glucose (74-99) mg/dL POC Glucose (mg/dL) 167 H 186 H (75-99) mg/dL Calcium (8.4-10.2) mg/dL Magnesium (1.6-2.3) mg/dL Ferritin 520.8 H (10.0-291.0) ng/mL Total Protein (6.3-8.2) g/dL Albumin (3.5-5.0) g/dL 01/20/20 01/20/20 01/20/20 Range/Units 04:30 04:30 04:49 RBC 2.78 L (3.80-5.40) m/uL Hgb 8.4 L (11.4-16.0) gm/dL Hct 25.7 L (34.0-46.0) % Plt Count 63 L (150-450) k/uL Neutrophils # 9.4 H (1.3-7.7) k/uL Lymphocytes # 0.3 L (1.0-4.8) k/uL ABG Total CO2 25 H (19-24) mmol/L ABG O2 Saturation 97.8 H (94-97) % Chloride 116 H (98-107) mmol/L BUN 80 H (7-17) mg/dL Creatinine 1.05 H (0.52-1.04) mg/dL Glucose 189 H (74-99) mg/dL POC Glucose (mg/dL) (75-99) mg/dL Calcium 8.0 L (8.4-10.2) mg/dL Magnesium 2.5 H (1.6-2.3) mg/dL Ferritin (10.0-291.0) ng/mL Total Protein 4.0 L (6.3-8.2) g/dL Albumin 1.8 L (3.5-5.0) g/dL 01/20/20 01/20/20 Range/Units 06:59 11:37 RBC (3.80-5.40) m/uL Hgb (11.4-16.0) gm/dL Hct (34.0-46.0) % Plt Count (150-450) k/uL Neutrophils # (1.3-7.7) k/uL Lymphocytes # (1.0-4.8) k/uL ABG Total CO2 (19-24) mmol/L ABG O2 Saturation (94-97) % Chloride (98-107) mmol/L BUN (7-17) mg/dL Creatinine (0.52-1.04) mg/dL Glucose (74-99) mg/dL POC Glucose (mg/dL) 200 H 184 H (75-99) mg/dL Calcium (8.4-10.2) mg/dL Magnesium (1.6-2.3) mg/dL Ferritin (10.0-291.0) ng/mL Total Protein (6.3-8.2) g/dL Albumin (3.5-5.0) g/dL Microbiology - Last 24 Hours (Table) 01/17/20 09:11 Blood Culture - Preliminary Blood No Growth after 72 hours 01/17/20 09:11 Blood Culture - Preliminary Blood No Growth after 72 hours 01/17/20 15:20 Urine Culture - Final Urine,Catheterized Escherichia coli Enterococcus faecalis Assessment and Plan Plan: Assessment: 1. Acute kidney injury secondary to ATN secondary to septic shock. Baseline creatinine 1 - peaked at 1.63 this admission - 1.05 today. Now nonoliguric. 2. Metabolic acidosis secondary to acute kidney injury. Resolved. Status post bicarb drip. 3. Septic shock secondary to COVID-19 maintained on steroids and zinc. Off levophed. Status post remdesivir. 4. PE maintained on anticoagulation. 5. A. fib with RVR maintained on oral amiodarone. Cardiology following. 6. Hyperphosphatemia secondary to acute kidney injury. Resolved. 7. UTI with urine culture positive for E. coli and enterococcus maintained on antibiotics. Plan: Hep-Lock IV fluids. Rate of tube feedings will be increased today. Wean FiO2. Continue to monitor renal function and urine output.
--- NOTE | 2020-01-20 12:50 | P.PN ---
Subjective Progress Note Date: 01/20/20 Principal diagnosis: Acute hypoxic regular failure secondary to covid and 19 related pneumonia. On today's evaluation of 01/12/2020, the patient is being seen in follow-up. As mentioned earlier, the patient was infected with jane virus Covid 19 and the patient had an acute Covid 19 related pneumonia with diffuse breath and pulmonary infiltrates. Subsequently, the patient had a CT angios of the chest that showed bilateral pulmonary infiltrates and groundglass opacities in addition to pulmonary embolism involving mainly the right-sided pulmonary artery branches. Filling defect in the right pulmonary artery and segmental branches in addition to that there is a mild component of strain pattern. Nevertheless, tachycardic and short and a ejection fraction of 6065% and the patient had no enlargement of the right ventricle and there was no evidence of any pulmonary hypertension. Noted the patient oxidation is gradually gotten worse and currently the patient is on high flow oxygen at 6 L with an FiO2 of 85% and this was utilized to bring the saturation above 90%. The patient is on IV heparin with a therapeutic PTT of 58.7. Based on the acute jane virus Covid 19 infection, the patient had an LDH of 1455 and a CRP is at 47.9. The patient is having difficulty breathing with minimal amount of activity. Currently she is on bedrest. The patient has no pleurisy. No hemoptysis. Altered mentation. No other significant events overnight. Based on the worsening oxygenation, repeat chest x-ray was done and showed a patchy bilateral pulmonary infiltrates right more than left. No pleural effusion. The findings are essentially stable compared to yesterday's chest x-ray. On 01/18/2020, the patient remains intubated on a mechanical ventilator. This morning, the patient sedated with propofol and is calm and comfortable. Propofol is running at 50 mcg/kg per minute. The patient remained on assist control mode of ventilation. She is on a tidal volume of 451 and FiO2 of 50% with a PEEP of 12 and a rate of 14. The patient's blood gases showed a pH of 7.21 with episodes of 56 and pO2 of 126. The peak airway pressure is 30. The static airway pressure is 28. Chest x-ray remains unchanged. There is bilateral pulmonary infiltrates which remains essentially unchanged compared to yesterday. She has a triple lumen catheter. Her CVP is around 9. She did receive total of 2 L of IV fluids yesterday which both upper CVP and improved her blood pressure. She remains on a low dose norepinephrine infusion running at 0.04-respiratory KG per minute. She also has an acute kidney injury and a component of non-anion gap metabolic acidosis. Based on that, I gave her 2 A of sodium bicarbonate total of 100 mEq and the patient was also started on abicarb infusion. This improved her non-anion gap metabolic acidosis. The serum bicarb today is up to 24. Creatinine is at 1.6 with a BUN of 82. The patient meanwhile went into atrial fibrillation again with rapid ventricular response. Based on her hypotension, I opted to start the patient on amiodarone. I loaded her with a total of 150 mg of amiodarone bolus and I'm going to load completely over the next 24 hours. She is also on IV cefepime as an empiric antibiotic coverage. She is completed a course of Remdesivir ,, convalescent plasma 1 and the patient is also been on Decadron 6 mg every 24 hours. Reevaluated today on 01/26/20, patient remains in the ICU, intubated and mechanically ventilated. Ventilator settings are assist control rate of 18 tidal volume 450 FiO2 50% PEEP is 12. I did cut down the PEEP to 10 and increase the rate to 20. ABG today showed a pO2 of 98 pCO2 of 46 pH of 7.30. Patient is on IV fluid at 75 mL per hour, propofol at 40 mcg/kg/m, norepinephrine at 0.01 mcg/kg/m, amiodarone 0.5 mg per hour, patient is on Lovenox and on cefepime. Patient has a right subclavian triple-lumen catheter, and a right radial arterial line. Patient did receive 1 unit of convalescent plasma, and receivedremdesivir. Chest x-ray continues to show increase infiltrates with possibly a small left pleural effusion infiltrates are noted bilaterally., WBC count is 11.3 hemoglobin is 8.5. D-dimer is 9.45. BUN is 80 creatinine 1.29. I's are normal. LDH is 02/28/2007 and C-reactive protein is 45.6 Patient was reevaluated today on 01/20/20, remains in the ICU, remains intubated and mechanically ventilated. Ventilator settings are assist control rate of 20 tidal volume is 450 FiO2 is 50% and PEEP of 10. ABG showed a pO2 of 83 pCO2 of 40 pH of 7.37. Patient is on IV fluid at 50 mL per hour 0.9 normal saline on propofol at 40 mcg/kg/m, she is on tube feeding, and today I increased the PEEP down to 8. I plan to give the patient a weaning trial possibly with a pressure support of 8 and CPAP depending on her weaning. I have instructed that we hold propofol, assess weaning parameters, and proceed accordingly. Chest x-ray continues to show evidence of bilateral airspace disease, slight improvement compared to previous x-rays. CBC noted WBC count is 10 hemoglobin is 8.4 electrodes are normal renal profile showed a BUN of 80 creatinine of 1.05 Objective - Vital Signs Vital signs: Vital Signs Temp 97.9 F 01/20/20 08:00 Pulse 66 01/20/20 12:00 Resp 21 01/20/20 12:00 BP 117/68 01/19/20 10:30 Pulse Ox 91 L 01/20/20 12:00 Intake & Output 01/19/20 01/20/20 01/20/20 18:59 06:59 18:59 Intake Total 5031.630 0233.733 622.922 Output Total 883 1330 550 Balance 423.509 17.733 72.922 Weight 88.1 kg 88.1 kg Intake: IV 817 583 424 .9 @ KVO 725 470 350 Cefepime 1 gm In Sodium 50 50 50 Chloride 0.9% 50 ml @ 12. 5 mls/hr IVPB Q12HR [facility] Rx#:[id number] pressure bags 42 63 24 Intake, IV Titration 258.509 251.733 99.922 Amount Norepinephrine 8 mg In 11.343 Sodium Chloride 0.9% 250 ml @ 0.05 MCG/KG/MIN 6. 763 mls/hr IV .Q24H [facility] Rx#:[id number] Sodium Chloride 0.9% 1, 75 000 ml @ 75 mls/hr IV . [id number] [facility] Rx#:[id number] propofoL 1,000 mg In 172.166 251.733 99.922 Empty Bag 1 bag @ Titrate IV .Q0M [facility] Rx#: [id number] Tube Feeding 231 363 99 Other 150 Output: Urine 883 1330 550 Other: Voiding Method Indwelling Catheter Indwelling Catheter Indwelling Catheter ABP, PAP, CO, CI - Last Documented Arterial Blood Pressure 141/66 - Exam GENERAL EXAM: Alert, very pleasant 79-year-old female patient which is currently intubated on a mechanical ventilator. HEAD: Atraumatic, normocephalic. Tubes including endotracheal tube and orogastric tube are intact HEENT: PERRLA, EOMI, no icterus, no neck masses, no JVD, no stridor. Moist mucous membranes. .CHEST: No chest wall deformity. LUNGS: Equal air entry with scattered rhonchi., The patient is crackles lung bases bilaterally. CVS: S1 and S2 normal with no audible murmur, irregular rhythm. ABDOMEN: No hepatosplenomegaly, normal bowel sounds, no guarding or rigidity. SPINE: No scoliosis or deformity SKIN: No rashes CENTRAL NERVOUS SYSTEM: the patient is currently sedated, on mechanical ventilation could not assess Psychiatric: Could not assess. EXTREMITIES: There is no peripheral edema. No clubbing, no cyanosis. Peripheral pulses are intact. - Labs CBC & Chem 7: 01/20/20 04:30 01/20/20 04:30 Labs: Abnormal Lab Results - Last 24 Hours (Table) 01/19/20 01/19/20 01/20/20 Range/Units 05:35 17:57 00:32 RBC (3.80-5.40) m/uL Hgb (11.4-16.0) gm/dL Hct (34.0-46.0) % Plt Count (150-450) k/uL Neutrophils # (1.3-7.7) k/uL Lymphocytes # (1.0-4.8) k/uL ABG Total CO2 (19-24) mmol/L ABG O2 Saturation (94-97) % Chloride (98-107) mmol/L BUN (7-17) mg/dL Creatinine (0.52-1.04) mg/dL Glucose (74-99) mg/dL POC Glucose (mg/dL) 167 H 186 H (75-99) mg/dL Calcium (8.4-10.2) mg/dL Magnesium (1.6-2.3) mg/dL Ferritin 520.8 H (10.0-291.0) ng/mL Total Protein (6.3-8.2) g/dL Albumin (3.5-5.0) g/dL 01/20/20 01/20/20 01/20/20 Range/Units 04:30 04:30 04:49 RBC 2.78 L (3.80-5.40) m/uL Hgb 8.4 L (11.4-16.0) gm/dL Hct 25.7 L (34.0-46.0) % Plt Count 63 L (150-450) k/uL Neutrophils # 9.4 H (1.3-7.7) k/uL Lymphocytes # 0.3 L (1.0-4.8) k/uL ABG Total CO2 25 H (19-24) mmol/L ABG O2 Saturation 97.8 H (94-97) % Chloride 116 H (98-107) mmol/L BUN 80 H (7-17) mg/dL Creatinine 1.05 H (0.52-1.04) mg/dL Glucose 189 H (74-99) mg/dL POC Glucose (mg/dL) (75-99) mg/dL Calcium 8.0 L (8.4-10.2) mg/dL Magnesium 2.5 H (1.6-2.3) mg/dL Ferritin (10.0-291.0) ng/mL Total Protein 4.0 L (6.3-8.2) g/dL Albumin 1.8 L (3.5-5.0) g/dL 01/20/20 01/20/20 Range/Units 06:59 11:37 RBC (3.80-5.40) m/uL Hgb (11.4-16.0) gm/dL Hct (34.0-46.0) % Plt Count (150-450) k/uL Neutrophils # (1.3-7.7) k/uL Lymphocytes # (1.0-4.8) k/uL ABG Total CO2 (19-24) mmol/L ABG O2 Saturation (94-97) % Chloride (98-107) mmol/L BUN (7-17) mg/dL Creatinine (0.52-1.04) mg/dL Glucose (74-99) mg/dL POC Glucose (mg/dL) 200 H 184 H (75-99) mg/dL Calcium (8.4-10.2) mg/dL Magnesium (1.6-2.3) mg/dL Ferritin (10.0-291.0) ng/mL Total Protein (6.3-8.2) g/dL Albumin (3.5-5.0) g/dL Microbiology - Last 24 Hours (Table) 01/17/20 09:11 Blood Culture - Preliminary Blood No Growth after 72 hours 01/17/20 09:11 Blood Culture - Preliminary Blood No Growth after 72 hours 01/17/20 15:20 Urine Culture - Final Urine,Catheterized Escherichia coli Enterococcus faecalis Assessment and Plan Assessment: Impression: Acute hypoxic respiratory failure with bilateral pneumonia secondary to Covid 19 pneumonitis. Acute right sided pulmonary embolism and hypercoagulability secondary to jane virus infection. Recurrent atrial fibrillation, maintained on amiodarone. And on anticoagulations therapy. Remote history of deep vein thrombosis patient has been on Xarelto on outpatient basis. Acute kidney injury. Elevated d-dimer. Hypercoagulable state. Recommendation: Continue ventilatory support., However will hold sedation and assessment parameters, and determine whether the patient could be weaned and extubated t fredi. If not, we'll continue: Continue nutritional support. Continue anticoagulation therapy./Lovenox therapeutic dose 1 mg/kg every 12 hours. Patient already received convalescent plasma, she also received remdesivir Continue amiodarone. Continue to monitor renal profile. Continue GI prophylaxis. Continue to monitor daily x-rays and daily blood gases. Hold sedation today, assess mental status, assess possibly weaning parameters, and if within reasonable range, will likely consider a trial of pressure support and CPAP, and proceed accordingly. Critical care time is 35 minutes Time with Patient: Greater than 30
[2020-01-20] MEDS ORDERED: SODIUM CHLORIDE 0.9% 1,000 ML IV SCH (17:00)
[2020-01-20 17:42] LABS: Glucose,Whole Blood 147 mg/dL (75-99)
[2020-01-20] MEDS: CEFEPIME 2 GM in SODIUM CHLORIDE 0.9% 100 ML IVPB SCH (20:13)
[2020-01-20] MEDS: dexAMETHasone 2 MG TAB PO SCH (20:14)
[2020-01-20] MEDS: polyethylene glycoL 3350 17 GM POWD.PACK PO SCH (20:15)
[2020-01-20] MEDS: MELATONIN 5 MG TABLET PO SCH (20:15)
[2020-01-20 23:49] LABS: Glucose,Whole Blood 172 mg/dL (75-99)
[2020-01-21 04:40] LABS: Basophils % (A) 0 %; Eosinophils % (A) 0 %; HCT 25.8 % (34.0-46.0); HGB 8.7 gm/dL (11.4-16.0); Lymphocytes # (A) 0.4 k/uL (1.0-4.8); Lymphocytes % (A) 4 %; MCH 31.7 pg (25.0-35.0); MCHC 33.7 g/dL (31.0-37.0); MCV 94.1 fL (80.0-100.0); Mean Platelet Volume 9.1; Monocytes # (A) 0.3 k/uL (0-1.0); Monocytes % (A) 3 %; Neutrophils # (A) 8.7 k/uL (1.3-7.7); Neutrophils % (A) 93 %; RBC 2.74 m/uL (3.80-5.40); WBC 9.4 k/uL (3.8-10.6)
[2020-01-21 05:10] LABS: Platelet Count 83 k/uL (150-450)
[2020-01-21 05:14] LABS: C Reactive Protein 40.8 mg/L (<10.0)
[2020-01-21 05:32] LABS: ABG Base Excess -0.7 mmol/L; ABG HCO3 25 mmol/L (21-25); ABG Oxygen Saturation 98.4 % (94-97); ABG PCO2 42 mmHg (35-45); ABG PH 7.38 (7.35-7.45); ABG PO2 95 mmHg (83-108); ABG TCO2 26 mmol/L (19-24)
[2020-01-21 06:11] LABS: Glucose,Whole Blood 191 mg/dL (75-99)
[2020-01-21] MEDS: INSULIN ASPART (NovoLOG) 100 UNIT/ML VIAL SQ SCH ×3 (06:16→18:23)
[2020-01-21] MEDS: INSULIN DETEMIR (LEVEMIR) 100 UNIT/ML SYR SQ SCH ×2 (06:26→21:29)
[2020-01-21 06:40] LABS: ALT 15 U/L (4-34); AST 42 U/L (14-36); African American GFR (CKD) >90 (>60 ml/min/1.73 sqM); Alkaline Phosphatase 49 U/L (38-126); Anion Gap 3 mmol/L; Blood Urea Nitrogen 80 mg/dL (7-17); Calcium 8.3 mg/dL (8.4-10.2); Carbon Dioxide 21 mmol/L (22-30); Chloride 120 mmol/L (98-107); Glucose 159 mg/dL (74-99); Non-African American GFR(CKD) 79 (>60 ml/min/1.73 sqM); Sodium 144 mmol/L (137-145); Total Bilirubin 1.2 mg/dL (0.2-1.3); Total Protein 4.5 g/dL (6.3-8.2)
[2020-01-21 06:42] LABS: Potassium 5.3 mmol/L (3.5-5.1)
--- NOTE | 2020-01-21 06:59 | XR ---
EXAMINATION TYPE: XR chest 1V portable DATE OF EXAM: 01/21/2020 COMPARISON: 01/20/2020 HISTORY: SOB, Follow Up FINDINGS: Indwelling tubes and catheters are unchanged. Scattered bilateral infiltrates are unchanged. Stable appearance of the cardio-mediastinal structures at this time. IMPRESSION: 1. Stable portable chest. Clinical correlation and follow up until resolution is recommended.
[2020-01-21] MEDS: ASCORBIC ACID 500 MG TAB PO SCH (08:49)
[2020-01-21] MEDS: AMIODARONE 200 MG TAB PO SCH ×2 (08:49→21:28)
[2020-01-21] MEDS: CHLORHEXIDINE GLUCONATE 15 ML CUP MUCOUS MEM SCH ×2 (08:50→21:28)
[2020-01-21] MEDS: ZINC SULFATE 220 MG CAP PO SCH (08:50)
[2020-01-21] MEDS: ENOXAPARIN 80 MG/0.8 ML SYRINGE SQ SCH ×2 (08:50→21:29)
[2020-01-21] MEDS: FAMOTIDINE 20 MG TAB PO SCH (08:50)
[2020-01-21] MEDS: CHOLECALCIFEROL 1,000 UNIT TAB PO SCH (08:50)
[2020-01-21] MEDS: CEFEPIME 2 GM in SODIUM CHLORIDE 0.9% 100 ML IVPB SCH ×2 (08:58→21:29)
[2020-01-21] MEDS: ALBUTEROL HFA INHALER INHALATION SCH ×5 (09:52→20:51)
[2020-01-21 09:57] LABS: Ferritin 624.8 ng/mL (10.0-291.0)
[2020-01-21] MEDS ORDERED: LEVOFLOXACIN 500MG-D5W PMX 500 MG in DEXTROSE/WATER 1 100ML.BAG IVPB SCH (10:00)
[2020-01-21 12:05] LABS: Glucose,Whole Blood 160 mg/dL (75-99)
[2020-01-21] MEDS: AMPICILLIN-SULBACTAM 3 GM in SODIUM CHLORIDE 0.9% 100 ML IVPB SCH ×2 (12:16→18:23)
[2020-01-21] MEDS: NOREPINEPHRINE 8 MG in SODIUM CHLORIDE 0.9% 250 ML IV SCH (13:19)
--- NOTE | 2020-01-21 13:30 | P.PN ---
Subjective Patient is seen in follow-up for acute kidney injury. Renal function is back to baseline. She is receiving tube feeding. Off IV fluids. Nonoliguric. Hemodynamically stable. Now on oral amiodarone. Remains off vasopressors. Vital signs are stable. Off vasopressors. Intubated. Regular rhythm noted on the monitor. No gross edema. Exam discussed with the nurse. Objective - Vital Signs Vital signs: Vital Signs Temp 98.6 F 01/21/20 12:00 Pulse 80 01/21/20 13:00 Resp 22 01/21/20 13:00 BP 133/74 01/21/20 12:00 Pulse Ox 92 L 01/21/20 13:00 Intake & Output 01/20/20 01/21/20 01/21/20 18:59 06:59 18:59 Intake Total 7575.398 2999.638 878.672 Output Total 1500 1176 415 Balance -468.103 -40.362 463.672 Weight 88.1 kg 83.4 kg Intake: IV 580 278 179 .9 @ KVO 470 220 140 Cefepime 1 gm In Sodium 50 25 Chloride 0.9% 50 ml @ 12. 5 mls/hr IVPB Q12HR [facility] Rx#:[id number] pressure bags 60 33 39 Intake, IV Titration 194.897 259.638 317.672 Amount Ampicillin-Sulbactam 3 gm 100 In Sodium Chloride 0.9% 100 ml @ 200 mls/hr IVPB Q6HR [facility] Rx#:[id number] Cefepime 2 gm In Sodium 100 Chloride 0.9% 100 ml @ 25 mls/hr IVPB Q12HR [facility] Rx #:[id number] propofoL 1,000 mg In 194.897 259.638 117.672 Empty Bag 1 bag @ Titrate IV .Q0M [facility] Rx#: [id number] Tube Feeding 257 508 322 Other 90 60 Output: Urine 1500 1175 415 Stool 1 Other: Voiding Method Indwelling Catheter Indwelling Catheter Indwelling Catheter # Bowel Movements 1 ABP, PAP, CO, CI - Last Documented Arterial Blood Pressure 128/62 - Labs CBC & Chem 7: 01/21/20 03:32 01/21/20 03:32 Labs: Abnormal Lab Results - Last 24 Hours (Table) 01/20/20 01/20/20 01/21/20 Range/Units 17:41 23:46 03:32 RBC 2.74 L (3.80-5.40) m/uL Hgb 8.7 L (11.4-16.0) gm/dL Hct 25.8 L (34.0-46.0) % Plt Count 83 L (150-450) k/uL Neutrophils # 8.7 H (1.3-7.7) k/uL Lymphocytes # 0.4 L (1.0-4.8) k/uL D-Dimer (<0.60) mg/L FEU ABG Total CO2 (19-24) mmol/L ABG O2 Saturation (94-97) % Potassium (3.5-5.1) mmol/L Chloride (98-107) mmol/L Carbon Dioxide (22-30) mmol/L BUN (7-17) mg/dL Glucose (74-99) mg/dL POC Glucose (mg/dL) 147 H 172 H (75-99) mg/dL Calcium (8.4-10.2) mg/dL Ferritin (10.0-291.0) ng/mL AST (14-36) U/L C-Reactive Protein (<10.0) mg/L Total Protein (6.3-8.2) g/dL Albumin (3.5-5.0) g/dL 01/21/20 01/21/20 01/21/20 Range/Units 03:32 03:32 03:32 RBC (3.80-5.40) m/uL Hgb (11.4-16.0) gm/dL Hct (34.0-46.0) % Plt Count (150-450) k/uL Neutrophils # (1.3-7.7) k/uL Lymphocytes # (1.0-4.8) k/uL D-Dimer 8.60 H (<0.60) mg/L FEU ABG Total CO2 (19-24) mmol/L ABG O2 Saturation (94-97) % Potassium 5.3 H (3.5-5.1) mmol/L Chloride 120 H (98-107) mmol/L Carbon Dioxide 21 L (22-30) mmol/L BUN 80 H (7-17) mg/dL Glucose 159 H (74-99) mg/dL POC Glucose (mg/dL) (75-99) mg/dL Calcium 8.3 L (8.4-10.2) mg/dL Ferritin 624.8 H (10.0-291.0) ng/mL AST 42 H (14-36) U/L C-Reactive Protein 40.8 H (<10.0) mg/L Total Protein 4.5 L (6.3-8.2) g/dL Albumin 2.0 L (3.5-5.0) g/dL 01/21/20 01/21/20 01/21/20 Range/Units 05:27 06:10 12:03 RBC (3.80-5.40) m/uL Hgb (11.4-16.0) gm/dL Hct (34.0-46.0) % Plt Count (150-450) k/uL Neutrophils # (1.3-7.7) k/uL Lymphocytes # (1.0-4.8) k/uL D-Dimer (<0.60) mg/L FEU ABG Total CO2 26 H (19-24) mmol/L ABG O2 Saturation 98.4 H (94-97) % Potassium (3.5-5.1) mmol/L Chloride (98-107) mmol/L Carbon Dioxide (22-30) mmol/L BUN (7-17) mg/dL Glucose (74-99) mg/dL POC Glucose (mg/dL) 191 H 160 H (75-99) mg/dL Calcium (8.4-10.2) mg/dL Ferritin (10.0-291.0) ng/mL AST (14-36) U/L C-Reactive Protein (<10.0) mg/L Total Protein (6.3-8.2) g/dL Albumin (3.5-5.0) g/dL Microbiology - Last 24 Hours (Table) 01/17/20 09:11 Blood Culture - Preliminary Blood No Growth after 96 hours 01/17/20 09:11 Blood Culture - Preliminary Blood No Growth after 96 hours Assessment and Plan Plan: Assessment: 1. Acute kidney injury secondary to ATN secondary to septic shock. Baseline creatinine 1 - peaked at 1.63 this admission - 0.73 today. Now nonoliguric. 2. Metabolic acidosis secondary to acute kidney injury. Stable. 3. Septic shock secondary to COVID-19 maintained on steroids and zinc. Off levophed. Status post remdesivir. 4. PE maintained on anticoagulation. 5. A. fib with RVR maintained on oral amiodarone. Cardiology following. 6. Hyperphosphatemia secondary to acute kidney injury. Resolved. 7. UTI with urine culture positive for E. coli and enterococcus maintained on antibiotics. Plan: Off IV fluids. Maintained on tube feeding. Wean FiO2. Continue to monitor renal function and urine output. I will sign off. Please call with any questions or concerns.
--- NOTE | 2020-01-21 15:13 | P.PN ---
Subjective Progress Note Date: 01/21/20 Principal diagnosis: Acute hypoxic regular failure secondary to covid 19 related pneumonia. On today's evaluation of 01/12/2020, the patient is being seen in follow-up. As mentioned earlier, the patient was infected with jane virus Covid 19 and the patient had an acute Covid 19 related pneumonia with diffuse breath and pulmonary infiltrates. Subsequently, the patient had a CT angios of the chest that showed bilateral pulmonary infiltrates and groundglass opacities in add ition to pulmonary embolism involving mainly the right-sided pulmonary artery branches. Filling defect in the right pulmonary artery and segmental branches in addition to that there is a mild component of strain pattern. Nevertheless, tachycardic and short and a ejection fraction of 6065% and the patient had no enlargement of the right ventricle and there was no evidence of any pulmonary hypertension. Noted the patient oxidation is gradually gotten worse and currently the patient is on high flow oxygen at 6 L with an FiO2 of 85% and this was utilized to bring the saturation above 90%. The patient is on IV heparin with a therapeutic PTT of 58.7. Based on the acute jane virus Covid 19 i nfection, the patient had an LDH of 1455 and a CRP is at 47.9. The patient is having difficulty breathing with minimal amount of activity. Currently she is on bedrest. The patient has no pleurisy. No hemoptysis. Altered mentation. No other significant events overnight. Based on the worsening oxygenation, repeat chest x-ray was done and showed a patchy bilateral pulmonary infiltrates right more than left. No pleural effusion. The findings are essentially stable compared to yesterday's chest x-ray. On 01/18/2020, the patient remains intubated on a mechanical ventilator. This morning, the patient sedated with propofol and is calm and comfortable. Propofol is running at 50 mcg/kg per minute. The patient remained on assist control mode of ventilation. She is on a tidal volume of 451 and FiO2 of 50% with a PEEP of 12 and a rate of 14. The patient's blood gases showed a pH of 7.21 with episodes of 56 and pO2 of 126. The peak airway pressure is 30. The static airway pressure is 28. Chest x-ray remains unchanged. There is bilateral pulmonary infiltrates which remains essentially unchanged compared to yesterday. She has a triple lumen catheter. Her CVP is around 9. She did receive total of 2 L of IV fluids yesterday which both upper CVP and improved her blood pressure. She remains on a low dose norepinephrine infusion running at 0.04-respiratory KG per minute. She also has an acute kidney injury and a component of non-anion gap metabolic acidosis. Based on that, I gave her 2 A of sodium bicarbonate total of 100 mEq and the patient was also started on abicarb infusion. This improved her non-anion gap metabolic acidosis. The serum bicarb today is up to 24. Creatinine is at 1.6 with a BUN of 82. The patient meanwhile went into atrial fibrillation again with rapid ventricular response. Based on her hypotension, I opted to start the patient on amiodarone. I loaded her with a total of 150 mg of amiodarone bolus and I'm going to load completely over the next 24 hours. She is also on IV cefepime as an empiric antibiotic coverage. She is completed a course of Remdesivir ,, convalescent plasma 1 and the patient is also been on Decadron 6 mg every 24 hours. Reevaluated today on 01/26/20, patient remains in the ICU, intubated and mechanically ventilated. Ventilator settings are assist control rate of 18 tidal volume 450 FiO2 50% PEEP is 12. I did cut down the PEEP to 10 and increase the rate to 20. ABG today showed a pO2 of 98 pCO2 of 46 pH of 7.30. Patient is on IV fluid at 75 mL per hour, propofol at 40 mcg/kg/m, norepinephrine at 0.01 mcg/kg/m, amiodarone 0.5 mg per hour, patient is on Lovenox and on cefepime. Patient has a right subclavian triple-lumen catheter, and a right radial arterial line. Patient did receive 1 unit of convalescent plasma, and receivedremdesivir. Chest x-ray continues to show increase infiltrates with possibly a small left pleural effusion infiltrates are noted bilaterally., WBC count is 11.3 hemoglobin is 8.5. D-dimer is 9.45. BUN is 80 creatinine 1.29. I's are normal. LDH is 02/28/2007 and C-reactive protein is 45.6 Patient was reevaluated today on 01/20/20, remains in the ICU, remains intubated and mechanically ventilated. Ventilator settings are assist control rate of 20 tidal volume is 450 FiO2 is 50% and PEEP of 10. ABG showed a pO2 of 83 pCO2 of 40 pH of 7.37. Patient is on IV fluid at 50 mL per hour 0.9 normal saline on propofol at 40 mcg/kg/m, she is on tube feeding, and today I increased the PEEP down to 8. I plan to give the patient a weaning trial possibly with a pressure support of 8 and CPAP depending on her weaning. I have instructed that we hold propofol, assess weaning parameters, and proceed accordingly. Chest x-ray continues to show evidence of bilateral airspace disease, slight improvement compared to previous x-rays. CBC noted WBC count is 10 hemoglobin is 8.4 electrodes are normal renal profile showed a BUN of 80 creatinine of 1.05 Reevaluated today on 01/21/20, patient remains in the ICU, intubated and mechanically ventilated. Ventilator settings are assist control rate of 20 tidal volume is 450 FiO2 is 55% and PEEP is 12. Went ahead after reviewing the ABG on cut down the FiO2 to 50%. ABG showed a pO2 of 95 pCO2 of 42 pH of 7.38. Chest x-ray continues to show bilateral infiltrates, however the right side seems to be more affected than the left side. Patient remains on propofol at 40 mcg/kg/m, she is on enteral feeding, IV fluids at KVO, and remains on oral amiodarone, also remains on Lovenox. Patient was actually intubated on 01/15. Labs today showed relatively normal CBC, hemoglobin is 8.7. Electrolytes are normal except for bicarb of 21 chloride is 120 and potassium is 5.3. BUN is noted to be 80 and creatinine is 0.73. Hence her fluid was increased Objective - Vital Signs Vital signs: Vital Signs Temp 98.6 F 01/21/20 12:00 Pulse 72 01/21/20 14:00 Resp 22 01/21/20 14:00 BP 133/76 01/21/20 14:00 Pulse Ox 93 L 01/21/20 14:00 Intake & Output 01/20/20 01/21/20 01/21/20 18:59 06:59 18:59 Intake Total 7471.891 9165.638 950.672 Output Total 1500 1176 585 Balance -468.103 -40.362 365.672 Weight 88.1 kg 83.4 kg Intake: IV 580 278 205 .9 @ KVO 470 220 160 Cefepime 1 gm In Sodium 50 25 Chloride 0.9% 50 ml @ 12. 5 mls/hr IVPB Q12HR [facility] Rx#:[id number] pressure bags 60 33 45 Intake, IV Titration 194.897 259.638 317.672 Amount Ampicillin-Sulbactam 3 gm 100 In Sodium Chloride 0.9% 100 ml @ 200 mls/hr IVPB Q6HR [facility] Rx#:[id number] Cefepime 2 gm In Sodium 100 Chloride 0.9% 100 ml @ 25 mls/hr IVPB Q12HR [facility] Rx #:[id number] propofoL 1,000 mg In 194.897 259.638 117.672 Empty Bag 1 bag @ Titrate IV .Q0M [facility] Rx#: [id number] Tube Feeding 257 508 368 Other 90 60 Output: Urine 1500 1175 585 Stool 1 Other: Voiding Method Indwelling Catheter Indwelling Catheter Indwelling Catheter # Bowel Movements 1 ABP, PAP, CO, CI - Last Documented Arterial Blood Pressure 135/64 - Exam GENERAL EXAM: Revealed 79-year-old female intubated, sedated, on mechanical ventilation. HEAD: Atraumatic, normocephalic. Tubes including endotracheal tube and orogastric tube are intact HEENT: PERRLA, EOMI, no icterus, no neck masses, no JVD, no stridor. Moist mucous membranes. .CHEST: No chest wall deformity. LUNGS: Crackles noted bilaterally more so at the right base. Symmetrical chest expansion. CVS: Irregular rhythm, no S3 gallop. ABDOMEN: No hepatosplenomegaly, normal bowel sounds, no guarding or rigidity. SPINE: No scoliosis or deformity SKIN: No rashes CENTRAL NERVOUS SYSTEM: the patient is currently sedated, on mechanical ventilation could not assess Psychiatric: Could not assess. EXTREMITIES: No clubbing, edema or cyanosis - Labs CBC & Chem 7: 01/21/20 03:32 01/21/20 03:32 Labs: Abnormal Lab Results - Last 24 Hours (Table) 01/20/20 01/20/20 01/21/20 Range/Units 17:41 23:46 03:32 RBC 2.74 L (3.80-5.40) m/uL Hgb 8.7 L (11.4-16.0) gm/dL Hct 25.8 L (34.0-46.0) % Plt Count 83 L (150-450) k/uL Neutrophils # 8.7 H (1.3-7.7) k/uL Lymphocytes # 0.4 L (1.0-4.8) k/uL D-Dimer (<0.60) mg/L FEU ABG Total CO2 (19-24) mmol/L ABG O2 Saturation (94-97) % Potassium (3.5-5.1) mmol/L Chloride (98-107) mmol/L Carbon Dioxide (22-30) mmol/L BUN (7-17) mg/dL Glucose (74-99) mg/dL POC Glucose (mg/dL) 147 H 172 H (75-99) mg/dL Calcium (8.4-10.2) mg/dL Ferritin (10.0-291.0) ng/mL AST (14-36) U/L C-Reactive Protein (<10.0) mg/L Total Protein (6.3-8.2) g/dL Albumin (3.5-5.0) g/dL 01/21/20 01/21/20 01/21/20 Range/Units 03:32 03:32 03:32 RBC (3.80-5.40) m/uL Hgb (11.4-16.0) gm/dL Hct (34.0-46.0) % Plt Count (150-450) k/uL Neutrophils # (1.3-7.7) k/uL Lymphocytes # (1.0-4.8) k/uL D-Dimer 8.60 H (<0.60) mg/L FEU ABG Total CO2 (19-24) mmol/L ABG O2 Saturation (94-97) % Potassium 5.3 H (3.5-5.1) mmol/L Chloride 120 H (98-107) mmol/L Carbon Dioxide 21 L (22-30) mmol/L BUN 80 H (7-17) mg/dL Glucose 159 H (74-99) mg/dL POC Glucose (mg/dL) (75-99) mg/dL Calcium 8.3 L (8.4-10.2) mg/dL Ferritin 624.8 H (10.0-291.0) ng/mL AST 42 H (14-36) U/L C-Reactive Protein 40.8 H (<10.0) mg/L Total Protein 4.5 L (6.3-8.2) g/dL Albumin 2.0 L (3.5-5.0) g/dL 01/21/20 01/21/20 01/21/20 Range/Units 05:27 06:10 12:03 RBC (3.80-5.40) m/uL Hgb (11.4-16.0) gm/dL Hct (34.0-46.0) % Plt Count (150-450) k/uL Neutrophils # (1.3-7.7) k/uL Lymphocytes # (1.0-4.8) k/uL D-Dimer (<0.60) mg/L FEU ABG Total CO2 26 H (19-24) mmol/L ABG O2 Saturation 98.4 H (94-97) % Potassium (3.5-5.1) mmol/L Chloride (98-107) mmol/L Carbon Dioxide (22-30) mmol/L BUN (7-17) mg/dL Glucose (74-99) mg/dL POC Glucose (mg/dL) 191 H 160 H (75-99) mg/dL Calcium (8.4-10.2) mg/dL Ferritin (10.0-291.0) ng/mL AST (14-36) U/L C-Reactive Protein (<10.0) mg/L Total Protein (6.3-8.2) g/dL Albumin (3.5-5.0) g/dL Microbiology - Last 24 Hours (Table) 01/17/20 09:11 Blood Culture - Preliminary Blood No Growth after 96 hours 01/17/20 09:11 Blood Culture - Preliminary Blood No Growth after 96 hours Assessment and Plan Assessment: Impression: Acute hypoxic respiratory failure with bilateral pneumonia and ARDS. secondary to Covid 19 pneumonitis. Acute right sided pulmonary embolism and hypercoagulability secondary to jane virus infection. Recurrent atrial fibrillation, maintained on amiodarone. And on anticoagulations therapy. Remote history of deep vein thrombosis patient has been on Xarelto on outpatient basis. Acute kidney injury. Elevated d-dimer. Hypercoagulable state. Recommendation: Continue ventilatory support., Will hold sedation and assessment of status today, not quite ready for weaning. Continue nutritional support. Continue anticoagulation therapy./Lovenox Patient already received convalescent plasma, she also received remdesivir Continue amiodarone. Orally. Continue to monitor renal profile. Increase IV fluids. Continue GI prophylaxis. Continue to monitor daily x-rays and daily blood gases. Hold sedation today, assess mental status, Prognosis remains guarded, patient remains critically ill, still requiring relatively high PEEP, Critical care time is 35 minutes Time with Patient: Greater than 30
[2020-01-21 17:41] LABS: Glucose,Whole Blood 150 mg/dL (75-99)
[2020-01-21] MEDS: dexAMETHasone 2 MG TAB PO SCH (21:28)
[2020-01-21] MEDS: polyethylene glycoL 3350 17 GM POWD.PACK PO SCH (21:29)
[2020-01-21] MEDS: MELATONIN 5 MG TABLET PO SCH (21:29)
--- NOTE | 2020-01-21 21:42 | P.PN ---
Subjective Progress Note Date: 01/21/20 (Delayed charting seen at 1300) Principal diagnosis: shortness of breath Patient is a 79-year-old female history of DVT who presented to the emergency department with complaints of shortness of breath. She initially had a DVT and stopped her Xarelto as she was concerned about an interaction with the azithromycin she had been prescribed due to COVID 19. In the ER she underwent an extensive evaluation. She is on have a pulmonary embolism was started on a heparin drip, she was found have Covid 19 pneumonia and was started on steroids, zinc, vitamin C, and melatonin. Pulmonary was consulted. She was admitted to the selective care unit. She was found to be in atrial fibrillation which was new onset. Cardiology was consulted. She was started on low-dose metoprolol. On the evening of 01/09 she went and A. fib with RVR was started on Cardizem drip. On the morning of 01/10 she was seen by cardiology Cardizem drip was discontinued and she was started on metoprolol 25 mg twice a day. Her oxygen requirements were increasing throughout her hospital stay. Pulmonary determined she was not a candidate for aggressive ears are Covid symptoms that started 2 w eeks prior. Case had been discussed with vascular who felt she was not a candidate for catheter directed TPA/EKOS. On 01/11 she was seen by pulmonary and started on Remedesivir. She was transferred to the ICU overnight on 01/11 due to progressive hypoxemia. She required aerosol as well as a nonrebreather. By the morning of 01/14 she had received 2 units of convalescent plasma. On the morning of 01/15 she was requiring BiPAP. She had a triple-lumen catheter placed. She failed BiPAP therapy and was subsequently intubated overnight on 01/15. After intubation she again went into A. fib with RVR and required a Cardizem drip for a short time but then converted to normal sinus rhythm. She did require levothyroxine secondary to hypotension. She again went into A. fib with RVR on 01/17 and secondary to her hypotension she was started on amiodarone. Levophed weaned off by 01/18 and she was able to be switched to oral amiodarone. During her ICU stay her heparin drip was transitioned to Lovenox subcutaneous. She still has not been able to wean from the ventilator. Patient seen and examined at bedside. She is sedated and unresponsive on ventilator. Per nursing failed weaning trial. General: Ill-appearing, no distress, appears at stated age Derm: warm, dry Head: atraumatic, normocephalic, symmetric Eyes: EOMI, no lid lag, anicteric sclera Mouth: no lip lesion, mucus membranes moist Cardiovascular: S1S2 reg, no murmur, positive posterior tibial pulse bilateral, Lungs: Coarse breath sounds bilateral, no rhonchi, no rales, no accessory muscle use Abdominal: soft, nontender to palpation, no guarding, no appreciable organomegaly Ext: no gross muscle atrophy, diffuse anasarca, no contractures Neuro: No gross muscle atrophy, no tremors noted Psych: Sedated on vent Covid 19 pneumonia with acute hypoxic respiratory failure, ARDS - Completed Remdesivir on 01/15 - Dexamethasone day #12 - Status post convalescent plasma 01/14 - Pulmonary recommendations completed -Continue zinc, vitamin C, vitamin D, Pepcid, and melatonin Pulmonary embolus without right ventricular strain, history of prior DVT - Lovenox P. A fib with RVR - lovenox, amio - now in NSA Group D enterococcus UTI - cefepime Thrombocytopenia KALYAN due to ATN with resultant metabolic acidosis and hyperphosphatemia, resolved Septic shock, resolved Hypokalemia, resolved DVT prophylaxis: Lovenox for PE Discussed with: Nursing Anticipated discharge: undetermined Anticipated discharge place: undtermined A total of 35 minutes was spent on the care of this complex patient more than 50% of the time was spent in counseling and care coordination. Objective - Vital Signs Vital signs: Vital Signs Temp 98.8 F 01/21/20 04:00 Pulse 66 01/21/20 07:00 Resp 20 01/21/20 07:00 BP 124/77 01/21/20 05:00 Pulse Ox 94 L 01/21/20 07:00 Intake & Output 01/20/20 01/21/20 01/21/20 18:59 06:59 18:59 Intake Total 2349.186 4146.638 69 Output Total 1500 1176 75 Balance -468.103 -40.362 -6 Weight 88.1 kg 83.4 kg Intake: IV 580 278 23 .9 @ KVO 470 220 20 Cefepime 1 gm In Sodium 50 25 Chloride 0.9% 50 ml @ 12. 5 mls/hr IVPB Q12HR [facility] Rx#:[id number] pressure bags 60 33 3 Intake, IV Titration 194.897 259.638 Amount propofoL 1,000 mg In 194.897 259.638 Empty Bag 1 bag @ Titrate IV .Q0M [facility] Rx#: [id number] Tube Feeding 257 508 46 Other 90 Output: Urine 1500 1175 75 Stool 1 Other: Voiding Method Indwelling Catheter Indwelling Catheter # Bowel Movements 1 ABP, PAP, CO, CI - Last Documented Arterial Blood Pressure 130/62 - Labs CBC & Chem 7: 01/21/20 03:32 01/21/20 03:32 Labs: Abnormal Lab Results - Last 24 Hours (Table) 01/20/20 01/20/20 01/20/20 Range/Units 11:37 17:41 23:46 RBC (3.80-5.40) m/uL Hgb (11.4-16.0) gm/dL Hct (34.0-46.0) % Plt Count (150-450) k/uL Neutrophils # (1.3-7.7) k/uL Lymphocytes # (1.0-4.8) k/uL D-Dimer (<0.60) mg/L FEU ABG Total CO2 (19-24) mmol/L ABG O2 Saturation (94-97) % Potassium (3.5-5.1) mmol/L Chloride (98-107) mmol/L Carbon Dioxide (22-30) mmol/L BUN (7-17) mg/dL Glucose (74-99) mg/dL POC Glucose (mg/dL) 184 H 147 H 172 H (75-99) mg/dL Calcium (8.4-10.2) mg/dL AST (14-36) U/L C-Reactive Protein (<10.0) mg/L Total Protein (6.3-8.2) g/dL Albumin (3.5-5.0) g/dL 01/21/20 01/21/20 01/21/20 Range/Units 03:32 03:32 03:32 RBC 2.74 L (3.80-5.40) m/uL Hgb 8.7 L (11.4-16.0) gm/dL Hct 25.8 L (34.0-46.0) % Plt Count 83 L (150-450) k/uL Neutrophils # 8.7 H (1.3-7.7) k/uL Lymphocytes # 0.4 L (1.0-4.8) k/uL D-Dimer 8.60 H (<0.60) mg/L FEU ABG Total CO2 (19-24) mmol/L ABG O2 Saturation (94-97) % Potassium (3.5-5.1) mmol/L Chloride (98-107) mmol/L Carbon Dioxide (22-30) mmol/L BUN (7-17) mg/dL Glucose (74-99) mg/dL POC Glucose (mg/dL) (75-99) mg/dL Calcium (8.4-10.2) mg/dL AST (14-36) U/L C-Reactive Protein 40.8 H (<10.0) mg/L Total Protein (6.3-8.2) g/dL Albumin (3.5-5.0) g/dL 01/21/20 01/21/20 01/21/20 Range/Units 03:32 05:27 06:10 RBC (3.80-5.40) m/uL Hgb (11.4-16.0) gm/dL Hct (34.0-46.0) % Plt Count (150-450) k/uL Neutrophils # (1.3-7.7) k/uL Lymphocytes # (1.0-4.8) k/uL D-Dimer (<0.60) mg/L FEU ABG Total CO2 26 H (19-24) mmol/L ABG O2 Saturation 98.4 H (94-97) % Potassium 5.3 H (3.5-5.1) mmol/L Chloride 120 H (98-107) mmol/L Carbon Dioxide 21 L (22-30) mmol/L BUN 80 H (7-17) mg/dL Glucose 159 H (74-99) mg/dL POC Glucose (mg/dL) 191 H (75-99) mg/dL Calcium 8.3 L (8.4-10.2) mg/dL AST 42 H (14-36) U/L C-Reactive Protein (<10.0) mg/L Total Protein 4.5 L (6.3-8.2) g/dL Albumin 2.0 L (3.5-5.0) g/dL Microbiology - Last 24 Hours (Table) 01/17/20 09:11 Blood Culture - Preliminary Blood No Growth after 72 hours 01/17/20 09:11 Blood Culture - Preliminary Blood No Growth after 72 hours
[2020-01-21 23:45] LABS: Glucose,Whole Blood 159 mg/dL (75-99)
[2020-01-22] MEDS: INSULIN ASPART (NovoLOG) 100 UNIT/ML VIAL SQ SCH ×4 (00:03→17:56)
[2020-01-22] MEDS: AMPICILLIN-SULBACTAM 3 GM in SODIUM CHLORIDE 0.9% 100 ML IVPB SCH ×4 (00:03→17:56)
[2020-01-22 05:03] LABS: ABG Base Excess 1.4 mmol/L; ABG HCO3 26 mmol/L (21-25); ABG Oxygen Saturation 98.6 % (94-97); ABG PCO2 42 mmHg (35-45); ABG PO2 98 mmHg (83-108); ABG TCO2 28 mmol/L (19-24); Allen Test Performed? Yes
[2020-01-22 05:28] LABS: Basophils % (A) 0 %; Eosinophils # (A) 0.1 k/uL (0-0.7); Eosinophils % (A) 1 %; HGB 8.4 gm/dL (11.4-16.0); Lymphocytes # (A) 0.4 k/uL (1.0-4.8); Lymphocytes % (A) 4 %; MCH 30.4 pg (25.0-35.0); MCHC 32.1 g/dL (31.0-37.0); MCV 94.6 fL (80.0-100.0); Mean Platelet Volume 9.7; Monocytes # (A) 0.3 k/uL (0-1.0); Monocytes % (A) 2 %; Neutrophils # (A) 9.7 k/uL (1.3-7.7); Neutrophils % (A) 93 %; RBC 2.75 m/uL (3.80-5.40); RDW 15.4 % (11.5-15.5); WBC 10.4 k/uL (3.8-10.6)
[2020-01-22 05:35] LABS: Platelet Count 99 k/uL (150-450)
[2020-01-22 05:40] LABS: Glucose,Whole Blood 214 mg/dL (75-99)
[2020-01-22 06:01] LABS: Albumin 1.9 g/dL (3.5-5.0); C Reactive Protein 78.3 mg/L (<10.0); Calcium 8.5 mg/dL (8.4-10.2); Potassium 4.8 mmol/L (3.5-5.1); Total Bilirubin 0.6 mg/dL (0.2-1.3); Total Protein 4.4 g/dL (6.3-8.2)
--- NOTE | 2020-01-22 07:23 | XR ---
EXAMINATION TYPE: XR chest 1V portable DATE OF EXAM: 01/22/2020 COMPARISON: 01/21/2020 HISTORY: SOB, Follow Up FINDINGS: Indwelling tubes and catheters are unchanged. If you so right-sided infiltrates persist with a left lower lobe infiltrate also unchanged. Stable appearance of the cardio-mediastinal structures at this time. Pleural effusion unchanged. IMPRESSION: 1. Stable portable chest. Clinical correlation and follow up until resolution is recommended.
[2020-01-22] MEDS: ALBUTEROL HFA INHALER INHALATION SCH ×4 (07:37→19:31)
[2020-01-22] MEDS: ZINC SULFATE 220 MG CAP PO SCH (08:44)
[2020-01-22] MEDS: AMIODARONE 200 MG TAB PO SCH ×2 (08:44→21:35)
[2020-01-22] MEDS: CHOLECALCIFEROL 1,000 UNIT TAB PO SCH (08:44)
[2020-01-22] MEDS: FAMOTIDINE 20 MG TAB PO SCH (08:44)
[2020-01-22] MEDS: ASCORBIC ACID 500 MG TAB PO SCH (08:44)
[2020-01-22] MEDS: CHLORHEXIDINE GLUCONATE 15 ML CUP MUCOUS MEM SCH ×2 (08:44→21:34)
[2020-01-22] MEDS: CEFEPIME 2 GM in SODIUM CHLORIDE 0.9% 100 ML IVPB SCH ×2 (08:45→21:35)
[2020-01-22] MEDS: ENOXAPARIN 80 MG/0.8 ML SYRINGE SQ SCH ×2 (08:47→21:36)
[2020-01-22 09:34] LABS: Ferritin 624.3 ng/mL (10.0-291.0)
[2020-01-22] MEDS: hydrALAZINE HCL 20 MG/ML 1 ML VIAL IVP PRN ×2 (10:34→21:52)
[2020-01-22] MEDS: DEXMEDETOMIDINE/0.9% NACL(PMX) 400 MCG in EMPTY BAG 1 BAG IV SCH ×3 (11:05→21:36)
[2020-01-22 12:30] LABS: Glucose,Whole Blood 213 mg/dL (75-99)
--- NOTE | 2020-01-22 14:38 | P.PN ---
Subjective Progress Note Date: 01/22/20 Principal diagnosis: Acute hypoxic regular failure secondary to covid 19 related pneumonia. On today's evaluation of 01/12/2020, the patient is being seen in follow-up. As mentioned earlier, the patient was infected with jane virus Covid 19 and the patient had an acute Covid 19 related pneumonia with diffuse breath and pulmonary infiltrates. Subsequently, the patient had a CT angios of the chest that showed bilateral pulmonary infiltrates and groundglass opacities in add ition to pulmonary embolism involving mainly the right-sided pulmonary artery branches. Filling defect in the right pulmonary artery and segmental branches in addition to that there is a mild component of strain pattern. Nevertheless, tachycardic and short and a ejection fraction of 6065% and the patient had no enlargement of the right ventricle and there was no evidence of any pulmonary hypertension. Noted the patient oxidation is gradually gotten worse and currently the patient is on high flow oxygen at 6 L with an FiO2 of 85% and this was utilized to bring the saturation above 90%. The patient is on IV heparin with a therapeutic PTT of 58.7. Based on the acute jane virus Covid 19 i nfection, the patient had an LDH of 1455 and a CRP is at 47.9. The patient is having difficulty breathing with minimal amount of activity. Currently she is on bedrest. The patient has no pleurisy. No hemoptysis. Altered mentation. No other significant events overnight. Based on the worsening oxygenation, repeat chest x-ray was done and showed a patchy bilateral pulmonary infiltrates right more than left. No pleural effusion. The findings are essentially stable compared to yesterday's chest x-ray. On 01/18/2020, the patient remains intubated on a mechanical ventilator. This morning, the patient sedated with propofol and is calm and comfortable. Propofol is running at 50 mcg/kg per minute. The patient remained on assist control mode of ventilation. She is on a tidal volume of 451 and FiO2 of 50% with a PEEP of 12 and a rate of 14. The patient's blood gases showed a pH of 7.21 with episodes of 56 and pO2 of 126. The peak airway pressure is 30. The static airway pressure is 28. Chest x-ray remains unchanged. There is bilateral pulmonary infiltrates which remains essentially unchanged compared to yesterday. She has a triple lumen catheter. Her CVP is around 9. She did receive total of 2 L of IV fluids yesterday which both upper CVP and improved her blood pressure. She remains on a low dose norepinephrine infusion running at 0.04-respiratory KG per minute. She also has an acute kidney injury and a component of non-anion gap metabolic acidosis. Based on that, I gave her 2 A of sodium bicarbonate total of 100 mEq and the patient was also started on abicarb infusion. This improved her non-anion gap metabolic acidosis. The serum bicarb today is up to 24. Creatinine is at 1.6 with a BUN of 82. The patient meanwhile went into atrial fibrillation again with rapid ventricular response. Based on her hypotension, I opted to start the patient on amiodarone. I loaded her with a total of 150 mg of amiodarone bolus and I'm going to load completely over the next 24 hours. She is also on IV cefepime as an empiric antibiotic coverage. She is completed a course of Remdesivir ,, convalescent plasma 1 and the patient is also been on Decadron 6 mg every 24 hours. Reevaluated today on 01/26/20, patient remains in the ICU, intubated and mechanically ventilated. Ventilator settings are assist control rate of 18 tidal volume 450 FiO2 50% PEEP is 12. I did cut down the PEEP to 10 and increase the rate to 20. ABG today showed a pO2 of 98 pCO2 of 46 pH of 7.30. Patient is on IV fluid at 75 mL per hour, propofol at 40 mcg/kg/m, norepinephrine at 0.01 mcg/kg/m, amiodarone 0.5 mg per hour, patient is on Lovenox and on cefepime. Patient has a right subclavian triple-lumen catheter, and a right radial arterial line. Patient did receive 1 unit of convalescent plasma, and receivedremdesivir. Chest x-ray continues to show increase infiltrates with possibly a small left pleural effusion infiltrates are noted bilaterally., WBC count is 11.3 hemoglobin is 8.5. D-dimer is 9.45. BUN is 80 creatinine 1.29. I's are normal. LDH is 02/28/2007 and C-reactive protein is 45.6 Patient was reevaluated today on 01/20/20, remains in the ICU, remains intubated and mechanically ventilated. Ventilator settings are assist control rate of 20 tidal volume is 450 FiO2 is 50% and PEEP of 10. ABG showed a pO2 of 83 pCO2 of 40 pH of 7.37. Patient is on IV fluid at 50 mL per hour 0.9 normal saline on propofol at 40 mcg/kg/m, she is on tube feeding, and today I increased the PEEP down to 8. I plan to give the patient a weaning trial possibly with a pressure support of 8 and CPAP depending on her weaning. I have instructed that we hold propofol, assess weaning parameters, and proceed accordingly. Chest x-ray continues to show evidence of bilateral airspace disease, slight improvement compared to previous x-rays. CBC noted WBC count is 10 hemoglobin is 8.4 electrodes are normal renal profile showed a BUN of 80 creatinine of 1.05 Reevaluated today on 01/21/20, patient remains in the ICU, intubated and mechanically ventilated. Ventilator settings are assist control rate of 20 tidal volume is 450 FiO2 is 55% and PEEP is 12. Went ahead after reviewing the ABG on cut down the FiO2 to 50%. ABG showed a pO2 of 95 pCO2 of 42 pH of 7.38. Chest x-ray continues to show bilateral infiltrates, however the right side seems to be more affected than the left side. Patient remains on propofol at 40 mcg/kg/m, she is on enteral feeding, IV fluids at KVO, and remains on oral amiodarone, also remains on Lovenox. Patient was actually intubated on 01/15. Labs today showed relatively normal CBC, hemoglobin is 8.7. Electrolytes are normal except for bicarb of 21 chloride is 120 and potassium is 5.3. BUN is noted to be 80 and creatinine is 0.73. Hence her fluid was increased Reevaluated today on 01/15/20, patient remains in the ICU, intubated and mechanically ventilated. She is presently on assist control rate of 20 tidal volume is 450 FiO2 is 50% PEEP is 12. ABG showed a pO2 of 98 pCO2 of 42 pH of 7.40. Patient remains on propofol at 40 mcg/kg/m, I have recommended cutting the PEEP down to 8, Sats 50%, and I plan to give the patient hopefully today. Trial of pressure support and CPAP. Chest x-ray is basically unchanged compared to the chest x-ray yesterday, does have some infiltrates mostly in the right lung. Left lung seems to be less involved. WBC count today is 10.4 hemoglobin is 8.4, d-dimer is 4.5 to remains on therapeutic dose of Lovenox. Basic metabolic profile is normal. Patient remains on enteral feedings. Inflammatory markers are improving. Objective - Vital Signs Vital signs: Vital Signs Temp 98.7 F 01/22/20 12:00 Pulse 99 01/22/20 12:00 Resp 22 01/22/20 12:00 BP 133/78 01/21/20 15:00 Pulse Ox 94 L 01/22/20 12:00 Intake & Output 01/21/20 01/22/20 01/22/20 18:59 06:59 18:59 Intake Total 0986.658 8914 651.514 Output Total 957 1706 585 Balance 448.622 -336 66.514 Weight 89.1 kg Intake: IV 309 482 156 .9 @ KVO 240 210 120 Ampicillin-Sulbactam 3 gm 100 In Sodium Chloride 0.9% 100 ml @ 200 mls/hr IVPB Q6HR [facility] Rx#:[id number] Cefepime 2 gm In Sodium 100 Chloride 0.9% 100 ml @ 25 mls/hr IVPB Q12HR [facility] Rx #:[id number] pressure bags 69 72 36 Intake, IV Titration 454.622 200 113.514 Amount Ampicillin-Sulbactam 3 gm 200 In Sodium Chloride 0.9% 100 ml @ 200 mls/hr IVPB Q6HR [facility] Rx#:[id number] Cefepime 2 gm In Sodium 100 Chloride 0.9% 100 ml @ 25 mls/hr IVPB Q12HR [facility] Rx #:[id number] Dexmedetomidine/0.9% NaCl 13.514 (Pmx) 400 mcg In Empty Bag 1 bag @ Titrate IV . Q0M [facility] Rx#:[id number] propofoL 1,000 mg In 154.622 200 100 Empty Bag 1 bag @ Titrate IV .Q0M [facility] Rx#: [id number] Tube Feeding 552 598 322 Other 90 90 60 Output: Urine 955 1705 585 Stool 2 1 Other: Voiding Method Indwelling Catheter Indwelling Catheter Indwelling Catheter ABP, PAP, CO, CI - Last Documented Arterial Blood Pressure 164/76 - Exam GENERAL EXAM: Revealed 79-year-old female intubated, sedated, on mechanical ventilation. HEAD: Atraumatic, normocephalic. Orogastric tube and endotracheal tube are intact. HEENT: PERRLA, EOMI, no icterus, no neck masses, no JVD, no stridor. Moist mucous membranes. .CHEST: No chest wall deformity. LUNGS: Crackles noted bilaterally more so at the right base. Symmetrical chest expansion. CVS: Irregular rhythm, no S3 gallop. ABDOMEN: No hepatosplenomegaly, normal bowel sounds, no guarding or rigidity. SPINE: No scoliosis or deformity SKIN: No rashes CENTRAL NERVOUS SYSTEM: the patient is currently sedated, on mechanical ventilation could not assess Psychiatric: Could not assess. EXTREMITIES: No clubbing, edema or cyanosis - Labs CBC & Chem 7: 01/22/20 04:50 01/22/20 04:50 Labs: Abnormal Lab Results - Last 24 Hours (Table) 01/21/20 01/21/20 01/22/20 Range/Units 17:40 23:43 04:50 RBC 2.75 L (3.80-5.40) m/uL Hgb 8.4 L (11.4-16.0) gm/dL Hct 26.0 L (34.0-46.0) % Plt Count 99 L (150-450) k/uL Neutrophils # 9.7 H (1.3-7.7) k/uL Lymphocytes # 0.4 L (1.0-4.8) k/uL D-Dimer (<0.60) mg/L FEU ABG HCO3 (21-25) mmol/L ABG Total CO2 (19-24) mmol/L ABG O2 Saturation (94-97) % Chloride (98-107) mmol/L BUN (7-17) mg/dL Glucose (74-99) mg/dL POC Glucose (mg/dL) 150 H 159 H (75-99) mg/dL Ferritin (10.0-291.0) ng/mL C-Reactive Protein (<10.0) mg/L Total Protein (6.3-8.2) g/dL Albumin (3.5-5.0) g/dL 01/22/20 01/22/20 01/22/20 Range/Units 04:50 04:50 04:58 RBC (3.80-5.40) m/uL Hgb (11.4-16.0) gm/dL Hct (34.0-46.0) % Plt Count (150-450) k/uL Neutrophils # (1.3-7.7) k/uL Lymphocytes # (1.0-4.8) k/uL D-Dimer 4.52 H (<0.60) mg/L FEU ABG HCO3 26 H (21-25) mmol/L ABG Total CO2 28 H (19-24) mmol/L ABG O2 Saturation 98.6 H (94-97) % Chloride 117 H (98-107) mmol/L BUN 71 H (7-17) mg/dL Glucose 202 H (74-99) mg/dL POC Glucose (mg/dL) (75-99) mg/dL Ferritin 624.3 H (10.0-291.0) ng/mL C-Reactive Protein 78.3 H (<10.0) mg/L Total Protein 4.4 L (6.3-8.2) g/dL Albumin 1.9 L (3.5-5.0) g/dL 01/22/20 01/22/20 Range/Units 05:38 12:28 RBC (3.80-5.40) m/uL Hgb (11.4-16.0) gm/dL Hct (34.0-46.0) % Plt Count (150-450) k/uL Neutrophils # (1.3-7.7) k/uL Lymphocytes # (1.0-4.8) k/uL D-Dimer (<0.60) mg/L FEU ABG HCO3 (21-25) mmol/L ABG Total CO2 (19-24) mmol/L ABG O2 Saturation (94-97) % Chloride (98-107) mmol/L BUN (7-17) mg/dL Glucose (74-99) mg/dL POC Glucose (mg/dL) 214 H 213 H (75-99) mg/dL Ferritin (10.0-291.0) ng/mL C-Reactive Protein (<10.0) mg/L Total Protein (6.3-8.2) g/dL Albumin (3.5-5.0) g/dL Microbiology - Last 24 Hours (Table) 01/17/20 09:11 Blood Culture - Preliminary Blood No Growth after 120 hours 01/17/20 09:11 Blood Culture - Preliminary Blood No Growth after 120 hours Assessment and Plan Assessment: Impression: Acute hypoxic respiratory failure with bilateral pneumonia and ARDS. secondary to Covid 19 pneumonitis. Acute right sided pulmonary embolism and hypercoagulability secondary to jane virus infection. Recurrent atrial fibrillation, maintained on amiodarone. And on anticoagulations therapy. Remote history of deep vein thrombosis patient has been on Xarelto on outpatient basis. Acute kidney injury. Elevated d-dimer. Hypercoagulable state. Recommendation: Continue ventilatory support., Decrease PEEP to 8. Awaken the patient today, and consider a weaning trial. Use pressure support and CPAP. Continue nutritional support. Continue anticoagulation therapy./Lovenox Patient already received convalescent plasma, she also received remdesivir Continue amiodarone. Orally. Continue to monitor renal profile. Continue GI prophylaxis. Hold sedation today, assess mental status, and possibly assess weaning parameters and even consider a pressure support and CPAP trial. Prognosis remains guarded, Critical care time is over 30 minutes. Time with Patient: Greater than 30
[2020-01-22] MEDS: NOREPINEPHRINE 8 MG in SODIUM CHLORIDE 0.9% 250 ML IV SCH (17:39)
[2020-01-22 17:44] LABS: Glucose,Whole Blood 185 mg/dL (75-99)
--- NOTE | 2020-01-22 18:51 | P.PN ---
Subjective Progress Note Date: 01/22/20 (delayed charting seen at 1200) Principal diagnosis: shortness of breath Patient is a 79-year-old female history of DVT who presented to the emergency department with complaints of shortness of breath. She initially had a DVT and stopped her Xarelto as she was concerned about an interaction with the azithromycin she had been prescribed due to COVID 19. In the ER she underwent an extensive evaluation. She is on have a pulmonary embolism was started on a heparin drip, she was found have Covid 19 pneumonia and was started on steroids, zinc, vitamin C, and melatonin. Pulmonary was consulted. She was admitted to the selective care unit. She was found to be in atrial fibrillation which was new onset. Cardiology was consulted. She was started on low-dose metoprolol. On the evening of 01/09 she went and A. fib with RVR was started on Cardizem drip. On the morning of 01/10 she was seen by cardiology Cardizem drip was discontinued and she was started on metoprolol 25 mg twice a day. Her oxygen requirements were increasing throughout her hospital stay. Pulmonary determined she was not a candidate for aggressive ears are Covid symptoms that started 2 w eeks prior. Case had been discussed with vascular who felt she was not a candidate for catheter directed TPA/EKOS. On 01/11 she was seen by pulmonary and started on Remedesivir. She was transferred to the ICU overnight on 01/11 due to progressive hypoxemia. She required aerosol as well as a nonrebreather. By the morning of 01/14 she had received 2 units of convalescent plasma. On the morning of 01/15 she was requiring BiPAP. She had a triple-lumen catheter placed. She failed BiPAP therapy and was subsequently intubated overnight on 01/15. After intubation she again went into A. fib with RVR and required a Cardizem drip for a short time but then converted to normal sinus rhythm. She did require levothyroxine secondary to hypotension. She again went into A. fib with RVR on 01/17 and secondary to her hypotension she was started on amiodarone. Levophed weaned off by 01/18 and she was able to be switched to oral amiodarone. During her ICU stay her heparin drip was transitioned to Lovenox subcutaneous. She still has not been able to wean from the ventilator. PEEP decreased today. Patient seen and examined at bedside. Per nursing no acute events overnight. They were able to wean peep today. General: Ill-appearing, no distress, appears at stated age Derm: warm, dry Head: atraumatic, normocephalic, symmetric Eyes: EOMI, no lid lag, anicteric sclera Mouth: no lip lesion, mucus membranes moist Cardiovascular: S1S2 reg, no murmur, positive posterior tibial pulse bilateral, Lungs: Coarse breath sounds bilateral, no rhonchi, no rales, no accessory muscle use Abdominal: soft, nontender to palpation, no guarding, no appreciable organomegaly Ext: no gross muscle atrophy, diffuse anasarca, no contractures Neuro: No gross muscle atrophy, no tremors noted Psych: Sedated on vent Covid 19 pneumonia with acute hypoxic respiratory failure, ARDS - Completed Remdesivir on 01/15 - Dexamethasone day #13 - Status post convalescent plasma 01/14 - Pulmonary recommendations completed -Continue zinc, vitamin C, vitamin D, Pepcid, and melatonin Pulmonary embolus without right ventricular strain, history of prior DVT - Lovenox P. A fib with RVR - lovenox, amio - now in NSA Entercoccus and E coli UTI - cefepime and Unasyn Thrombocytopenia KALYAN due to ATN with resultant metabolic acidosis and hyperphosphatemia, resolved Septic shock, resolved Hypokalemia, resolved DVT prophylaxis: Lovenox for PE Discussed with: Nursing Anticipated discharge: undetermined Anticipated discharge place: undetermined A total of 35 minutes was spent on the care of this complex patient more than 50% of the time was spent in counseling and care coordination. Objective - Vital Signs Vital signs: Vital Signs Temp 98.1 F 01/22/20 16:00 Pulse 87 01/22/20 18:00 Resp 20 01/22/20 18:00 BP 133/78 01/21/20 15:00 Pulse Ox 96 01/22/20 18:00 Intake & Output 01/21/20 01/22/20 01/22/20 18:59 06:59 18:59 Intake Total 9914.244 4218 1132.510 Output Total 957 1706 850 Balance 448.622 -336 282.510 Weight 89.1 kg Intake: IV 309 482 286 .9 @ KVO 240 210 220 Ampicillin-Sulbactam 3 gm 100 In Sodium Chloride 0.9% 100 ml @ 200 mls/hr IVPB Q6HR [facility] Rx#:[id number] Cefepime 2 gm In Sodium 100 Chloride 0.9% 100 ml @ 25 mls/hr IVPB Q12HR [facility] Rx #:[id number] pressure bags 69 72 66 Intake, IV Titration 454.622 200 158.510 Amount Ampicillin-Sulbactam 3 gm 200 In Sodium Chloride 0.9% 100 ml @ 200 mls/hr IVPB Q6HR [facility] Rx#:[id number] Cefepime 2 gm In Sodium 100 Chloride 0.9% 100 ml @ 25 mls/hr IVPB Q12HR [facility] Rx #:[id number] Dexmedetomidine/0.9% NaCl 58.510 (Pmx) 400 mcg In Empty Bag 1 bag @ Titrate IV . Q0M [facility] Rx#:[id number] propofoL 1,000 mg In 154.622 200 100 Empty Bag 1 bag @ Titrate IV .Q0M [facility] Rx#: [id number] Tube Feeding 552 598 598 Other 90 90 90 Output: Urine 955 1705 850 Stool 2 1 Other: Voiding Method Indwelling Catheter Indwelling Catheter Indwelling Catheter ABP, PAP, CO, CI - Last Documented Arterial Blood Pressure 135/68 - Labs CBC & Chem 7: 01/22/20 04:50 01/22/20 04:50 Labs: Abnormal Lab Results - Last 24 Hours (Table) 01/21/20 01/22/20 01/22/20 Range/Units 23:43 04:50 04:50 RBC 2.75 L (3.80-5.40) m/uL Hgb 8.4 L (11.4-16.0) gm/dL Hct 26.0 L (34.0-46.0) % Plt Count 99 L (150-450) k/uL Neutrophils # 9.7 H (1.3-7.7) k/uL Lymphocytes # 0.4 L (1.0-4.8) k/uL D-Dimer (<0.60) mg/L FEU ABG HCO3 (21-25) mmol/L ABG Total CO2 (19-24) mmol/L ABG O2 Saturation (94-97) % Chloride 117 H (98-107) mmol/L BUN 71 H (7-17) mg/dL Glucose 202 H (74-99) mg/dL POC Glucose (mg/dL) 159 H (75-99) mg/dL Ferritin 624.3 H (10.0-291.0) ng/mL C-Reactive Protein 78.3 H (<10.0) mg/L Total Protein 4.4 L (6.3-8.2) g/dL Albumin 1.9 L (3.5-5.0) g/dL 01/22/20 01/22/20 01/22/20 Range/Units 04:50 04:58 05:38 RBC (3.80-5.40) m/uL Hgb (11.4-16.0) gm/dL Hct (34.0-46.0) % Plt Count (150-450) k/uL Neutrophils # (1.3-7.7) k/uL Lymphocytes # (1.0-4.8) k/uL D-Dimer 4.52 H (<0.60) mg/L FEU ABG HCO3 26 H (21-25) mmol/L ABG Total CO2 28 H (19-24) mmol/L ABG O2 Saturation 98.6 H (94-97) % Chloride (98-107) mmol/L BUN (7-17) mg/dL Glucose (74-99) mg/dL POC Glucose (mg/dL) 214 H (75-99) mg/dL Ferritin (10.0-291.0) ng/mL C-Reactive Protein (<10.0) mg/L Total Protein (6.3-8.2) g/dL Albumin (3.5-5.0) g/dL 01/22/20 01/22/20 Range/Units 12:28 17:42 RBC (3.80-5.40) m/uL Hgb (11.4-16.0) gm/dL Hct (34.0-46.0) % Plt Count (150-450) k/uL Neutrophils # (1.3-7.7) k/uL Lymphocytes # (1.0-4.8) k/uL D-Dimer (<0.60) mg/L FEU ABG HCO3 (21-25) mmol/L ABG Total CO2 (19-24) mmol/L ABG O2 Saturation (94-97) % Chloride (98-107) mmol/L BUN (7-17) mg/dL Glucose (74-99) mg/dL POC Glucose (mg/dL) 213 H 185 H (75-99) mg/dL Ferritin (10.0-291.0) ng/mL C-Reactive Protein (<10.0) mg/L Total Protein (6.3-8.2) g/dL Albumin (3.5-5.0) g/dL Microbiology - Last 24 Hours (Table) 01/17/20 09:11 Blood Culture - Preliminary Blood No Growth after 120 hours 01/17/20 09:11 Blood Culture - Preliminary Blood No Growth after 120 hours
[2020-01-22] MEDS: dexAMETHasone 2 MG TAB PO SCH (21:35)
[2020-01-22] MEDS: INSULIN DETEMIR (LEVEMIR) 100 UNIT/ML SYR SQ SCH (21:35)
[2020-01-22] MEDS: MELATONIN 5 MG TABLET PO SCH (21:36)
[2020-01-22] MEDS: polyethylene glycoL 3350 17 GM POWD.PACK PO SCH (21:38)
[2020-01-22 23:38] LABS: Glucose,Whole Blood 207 mg/dL (75-99)
[2020-01-23] MEDS: INSULIN ASPART (NovoLOG) 100 UNIT/ML VIAL SQ SCH ×5 (00:22→23:39)
[2020-01-23] MEDS: AMPICILLIN-SULBACTAM 3 GM in SODIUM CHLORIDE 0.9% 100 ML IVPB SCH ×5 (00:22→23:39)
[2020-01-23] MEDS ORDERED: DILTIAZEM DRIP BOLUS FROM BAG 1 MG SOLN IV STA (00:42)
[2020-01-23] MEDS: DILTIAZEM 125 MG in SODIUM CHLORIDE 0.9% 100 ML IV SCH (01:00)
[2020-01-23] MEDS ORDERED: DEXTROSE 5% IN WATER 100 ML with AMIODARONE 150 MG IV ONE (01:45)
[2020-01-23 04:56] LABS: Basophils % (A) 0 %; Eosinophils % (A) 0 %; HCT 26.7 % (34.0-46.0); HGB 8.4 gm/dL (11.4-16.0); Hypochromasia Slight; Lymphocytes # (A) 0.4 k/uL (1.0-4.8); Lymphocytes % (A) 3 %; MCHC 31.4 g/dL (31.0-37.0); MCV 95.6 fL (80.0-100.0); Mean Platelet Volume 10.4; Monocytes # (A) 0.2 k/uL (0-1.0); Monocytes % (A) 2 %; Neutrophils # (A) 10.5 k/uL (1.3-7.7); Neutrophils % (A) 94 %; Platelet Count 121 k/uL (150-450); RBC 2.79 m/uL (3.80-5.40); RDW 15.8 % (11.5-15.5); WBC 11.2 k/uL (3.8-10.6)
[2020-01-23 05:18] LABS: Potassium 4.5 mmol/L (3.5-5.1)
[2020-01-23 05:21] LABS: Albumin 2.1 g/dL (3.5-5.0); C Reactive Protein 72.8 mg/L (<10.0); Calcium 8.8 mg/dL (8.4-10.2); Total Bilirubin 0.6 mg/dL (0.2-1.3); Total Protein 4.7 g/dL (6.3-8.2)
[2020-01-23 05:43] LABS: D-Dimer 4.19 mg/L FEU (<0.60)
[2020-01-23 05:48] LABS: ABG Base Excess 1.7 mmol/L; ABG HCO3 26 mmol/L (21-25); ABG Oxygen Saturation 98.5 % (94-97); ABG PCO2 40 mmHg (35-45); ABG PH 7.42 (7.35-7.45); ABG PO2 94 mmHg (83-108); ABG TCO2 27 mmol/L (19-24)
[2020-01-23 06:24] LABS: Glucose,Whole Blood 198 mg/dL (75-99)
[2020-01-23 06:32] LABS: Allen Test Performed? no
[2020-01-23] MEDS: ALBUTEROL HFA INHALER INHALATION SCH ×4 (07:38→20:47)
[2020-01-23] MEDS: FAMOTIDINE 20 MG TAB PO SCH (08:24)
[2020-01-23] MEDS: CHLORHEXIDINE GLUCONATE 15 ML CUP MUCOUS MEM SCH ×2 (08:24→20:23)
[2020-01-23] MEDS: CEFEPIME 2 GM in SODIUM CHLORIDE 0.9% 100 ML IVPB SCH ×2 (08:24→20:22)
[2020-01-23] MEDS: ENOXAPARIN 80 MG/0.8 ML SYRINGE SQ SCH ×2 (08:24→20:23)
[2020-01-23] MEDS: AMIODARONE 200 MG TAB PO SCH ×2 (08:24→20:23)
[2020-01-23] MEDS: ASCORBIC ACID 500 MG TAB PO SCH (08:24)
[2020-01-23] MEDS: CHOLECALCIFEROL 1,000 UNIT TAB PO SCH (08:24)
[2020-01-23] MEDS: ZINC SULFATE 220 MG CAP PO SCH (08:25)
[2020-01-23 09:29] LABS: Ferritin 736.8 ng/mL (10.0-291.0)
[2020-01-23] MEDS ORDERED: CLEVIDIPINE BUTYRATE 25 MG/50 ML VIAL IV ONE (09:30)
--- NOTE | 2020-01-23 10:01 | XR ---
EXAMINATION TYPE: XR chest 1V DATE OF EXAM: 01/23/2020 COMPARISON: 01/22/2020 INDICATION: Short of breath TECHNIQUE: Single frontal view of the chest is obtained. FINDINGS: The heart size is normal. The pulmonary vasculature is somewhat prominent. Mild increased lung markings are present greater on the right. This may have slight improvement. Endotracheal tube tip is above the ollie. Nasogastric tube tip is within the left upper quadrant of the abdomen and curled within the stomach. IMPRESSION: 1. Lines and catheters discussed above. 2. Prominent pulmonary vascular markings and mild scattered infiltrates improving from comparison
[2020-01-23] MEDS: CLEVIDIPINE BUTYRATE 25 MG in EMPTY BAG 1 BAG IV SCH ×2 (10:10→20:30)
[2020-01-23] MEDS: DEXTROSE 5% IN WATER 1,000 ML IV SCH ×2 (10:50→20:25)
[2020-01-23 12:58] LABS: Glucose,Whole Blood 188 mg/dL (75-99)
[2020-01-23] MEDS: METOPROLOL TARTRATE 50 MG TAB PO SCH ×2 (13:04→20:23)
[2020-01-23] MEDS ORDERED: FUROSEMIDE 10 MG/ML 4 ML VIAL IV STA (13:47)
--- NOTE | 2020-01-23 15:25 | P.PN ---
Subjective Progress Note Date: 01/23/20 Principal diagnosis: shortness of breath Patient is a 79-year-old female history of DVT who presented to the emergency department with complaints of shortness of breath. She initially had a DVT and stopped her Xarelto as she was concerned about an interaction with the azithromycin she had been prescribed due to COVID 19. In the ER she underwent an extensive evaluation. She is on have a pulmonary embolism was started on a heparin drip, she was found have Covid 19 pneumonia and was started on steroids, zinc, vitamin C, and melatonin. Pulmonary was consulted. She was admitted to the selective care unit. She was found to be in atrial fibrillation which was new onset. Cardiology was consulted. She was started on low-dose metoprolol. On the evening of 01/09 she went and A. fib with RVR was started on Cardizem drip. On the morning of 01/10 she was seen by cardiology Cardizem drip was discontinued and she was started on metoprolol 25 mg twice a day. Her oxygen requirements were increasing throughout her hospital stay. Pulmonary determined she was not a candidate for aggressive ears are Covid symptoms that started 2 weeks prior. Case had been discussed with vascular who felt she was not a candidate for catheter directed TPA/EKOS. On 01/11 she was seen by pulmonary and started on Remedesivir. She was transferred to the ICU overnight on 01/11 d ue to progressive hypoxemia. She required aerosol as well as a nonrebreather. By the morning of 01/14 she had received 2 units of convalescent plasma. On the morning of 01/15 she was requiring BiPAP. She had a triple-lumen catheter placed. She failed BiPAP therapy and was subsequently intubated overnight on 01/15. After intubation she again went into A. fib with RVR and required a Cardizem drip for a short time but then converted to normal sinus rhythm. She did require levothyroxine secondary to hypotension. She again went into A. fib with RVR on 01/17 and secondary to her hypotension she was started on amiodarone. Levophed weaned off by 01/18 and she was able to be switched to oral amiodarone. During her ICU stay her heparin drip was transitioned to Lovenox subcutaneous. She still has not been able to wean from the ventilator. PEEP decreased 01/21. Patient seen and examined at bedside. Per nursing no acute events overnight. Attempting to wake patient today General: Ill-appearing, no distress, appears at stated age Derm: warm, dry Head: atraumatic, normocephalic, symmetric Eyes: EOMI, no lid lag, anicteric sclera Mouth: no lip lesion, mucus membranes moist Cardiovascular: S1S2 reg, no murmur, positive posterior tibial pulse bilateral, Lungs: Coarse breath sounds bilateral, no rhonchi, no rales, no accessory muscle use Abdominal: soft, nontender to palpation, no guarding, no appreciable organomegaly Ext: no gross muscle atrophy, diffuse anasarca, no contractures Neuro: No gross muscle atrophy, no tremors noted Psych: lethargic but open eyes Covid 19 pneumonia with acute hypoxic respiratory failure, ARDS - Completed Remdesivir on 01/15 - Dexamethasone day #14 - Status post convalescent plasma 01/14 - Pulmonary recommendations completed - Continue zinc, vitamin C, vitamin D, Pepcid, and melatonin DIffuse Anasarca - Lasix X 1 today Pulmonary embolus without right ventricular strain, history of prior DVT - Lovenox P. A fib with RVR - lovenox, amio - now in NSR Entercoccus and E coli UTI - cefepime and Unasyn D #3 Thrombocytopenia KALYAN due to ATN with resultant metabolic acidosis and hyperphosphatemia, resolved Septic shock, resolved Hypokalemia, resolved DVT prophylaxis: Lovenox for PE Discussed with: Nursing Anticipated discharge: undetermined Anticipated discharge place: undetermined A total of 35 minutes was spent on the care of this complex patient more than 50% of the time was spent in counseling and care coordination. Objective - Vital Signs Vital signs: Vital Signs Temp 98.3 F 01/23/20 12:00 Pulse 64 01/23/20 14:00 Resp 21 01/23/20 14:00 BP 133/78 01/21/20 15:00 Pulse Ox 96 01/23/20 14:00 Intake & Output 01/22/20 01/23/20 01/23/20 18:59 06:59 18:59 Intake Total 1164.047 5831.846 486.934 Output Total 600 230 4004 Balance 315.510 478.846 -608.066 Weight 86.7 kg 86.7 kg Intake: IV 312 480 115 .9 @ KVO 240 220 100 Ampicillin-Sulbactam 3 gm 100 In Sodium Chloride 0.9% 100 ml @ 200 mls/hr IVPB Q6HR [facility] Rx#:[id number] Cefepime 2 gm In Sodium 100 Chloride 0.9% 100 ml @ 25 mls/hr IVPB Q12HR [facility] Rx #:[id number] pressure bags 72 60 15 Intake, IV Titration 158.510 56.846 65.934 Amount Dexmedetomidine/0.9% NaCl 58.510 24.725 (Pmx) 400 mcg In Empty Bag 1 bag @ Titrate IV . Q0M [facility] Rx#:[id number] propofoL 1,000 mg In 100 32.121 65.934 Empty Bag 1 bag @ Titrate IV .Q0M [facility] Rx#: [id number] Tube Feeding 690 552 276 Other 90 90 30 Output: Urine 246 820 9405 Other: Voiding Method Indwelling Catheter Indwelling Catheter Indwelling Catheter # Bowel Movements 3 ABP, PAP, CO, CI - Last Documented Arterial Blood Pressure 138/65 - Labs CBC & Chem 7: 01/23/20 04:30 01/23/20 04:30 Labs: Abnormal Lab Results - Last 24 Hours (Table) 01/22/20 01/22/20 01/23/20 Range/Units 17:42 23:35 04:30 WBC 11.2 H (3.8-10.6) k/uL RBC 2.79 L (3.80-5.40) m/uL Hgb 8.4 L (11.4-16.0) gm/dL Hct 26.7 L (34.0-46.0) % RDW 15.8 H (11.5-15.5) % Plt Count 121 L (150-450) k/uL Neutrophils # 10.5 H (1.3-7.7) k/uL Lymphocytes # 0.4 L (1.0-4.8) k/uL Fibrinogen (200-500) mg/dL D-Dimer (<0.60) mg/L FEU ABG HCO3 (21-25) mmol/L ABG Total CO2 (19-24) mmol/L ABG O2 Saturation (94-97) % Sodium (137-145) mmol/L Chloride (98-107) mmol/L BUN (7-17) mg/dL Glucose (74-99) mg/dL POC Glucose (mg/dL) 185 H 207 H (75-99) mg/dL Ferritin (10.0-291.0) ng/mL C-Reactive Protein (<10.0) mg/L Total Protein (6.3-8.2) g/dL Albumin (3.5-5.0) g/dL 01/23/20 01/23/20 01/23/20 Range/Units 04:30 04:30 05:42 WBC (3.8-10.6) k/uL RBC (3.80-5.40) m/uL Hgb (11.4-16.0) gm/dL Hct (34.0-46.0) % RDW (11.5-15.5) % Plt Count (150-450) k/uL Neutrophils # (1.3-7.7) k/uL Lymphocytes # (1.0-4.8) k/uL Fibrinogen 555 H (200-500) mg/dL D-Dimer 4.19 H (<0.60) mg/L FEU ABG HCO3 26 H (21-25) mmol/L ABG Total CO2 27 H (19-24) mmol/L ABG O2 Saturation 98.5 H (94-97) % Sodium 148 H (137-145) mmol/L Chloride 122 H (98-107) mmol/L BUN 71 H (7-17) mg/dL Glucose 217 H (74-99) mg/dL POC Glucose (mg/dL) (75-99) mg/dL Ferritin 736.8 H (10.0-291.0) ng/mL C-Reactive Protein 72.8 H (<10.0) mg/L Total Protein 4.7 L (6.3-8.2) g/dL Albumin 2.1 L (3.5-5.0) g/dL 01/23/20 01/23/20 Range/Units 06:22 12:56 WBC (3.8-10.6) k/uL RBC (3.80-5.40) m/uL Hgb (11.4-16.0) gm/dL Hct (34.0-46.0) % RDW (11.5-15.5) % Plt Count (150-450) k/uL Neutrophils # (1.3-7.7) k/uL Lymphocytes # (1.0-4.8) k/uL Fibrinogen (200-500) mg/dL D-Dimer (<0.60) mg/L FEU ABG HCO3 (21-25) mmol/L ABG Total CO2 (19-24) mmol/L ABG O2 Saturation (94-97) % Sodium (137-145) mmol/L Chloride (98-107) mmol/L BUN (7-17) mg/dL Glucose (74-99) mg/dL POC Glucose (mg/dL) 198 H 188 H (75-99) mg/dL Ferritin (10.0-291.0) ng/mL C-Reactive Protein (<10.0) mg/L Total Protein (6.3-8.2) g/dL Albumin (3.5-5.0) g/dL Microbiology - Last 24 Hours (Table) 01/17/20 09:11 Blood Culture - Final Blood No Growth after 144 hours 01/17/20 09:11 Blood Culture - Final Blood No Growth after 144 hours
[2020-01-23] MEDS: NOREPINEPHRINE 8 MG in SODIUM CHLORIDE 0.9% 250 ML IV SCH (16:03)
--- NOTE | 2020-01-23 16:19 | P.PN ---
Subjective Progress Note Date: 01/23/20 Principal diagnosis: Acute hypoxic regular failure secondary to covid 19 related pneumonia. On today's evaluation of 01/12/2020, the patient is being seen in follow-up. As mentioned earlier, the patient was infected with jane virus Covid 19 and the patient had an acute Covid 19 related pneumonia with diffuse breath and pulmonary infiltrates. Subsequently, the patient had a CT angios of the chest that showed bilateral pulmonary infiltrates and groundglass opacities in add ition to pulmonary embolism involving mainly the right-sided pulmonary artery branches. Filling defect in the right pulmonary artery and segmental branches in addition to that there is a mild component of strain pattern. Nevertheless, tachycardic and short and a ejection fraction of 6065% and the patient had no enlargement of the right ventricle and there was no evidence of any pulmonary hypertension. Noted the patient oxidation is gradually gotten worse and currently the patient is on high flow oxygen at 6 L with an FiO2 of 85% and this was utilized to bring the saturation above 90%. The patient is on IV heparin with a therapeutic PTT of 58.7. Based on the acute jane virus Covid 19 i nfection, the patient had an LDH of 1455 and a CRP is at 47.9. The patient is having difficulty breathing with minimal amount of activity. Currently she is on bedrest. The patient has no pleurisy. No hemoptysis. Altered mentation. No other significant events overnight. Based on the worsening oxygenation, repeat chest x-ray was done and showed a patchy bilateral pulmonary infiltrates right more than left. No pleural effusion. The findings are essentially stable compared to yesterday's chest x-ray. On 01/18/2020, the patient remains intubated on a mechanical ventilator. This morning, the patient sedated with propofol and is calm and comfortable. Propofol is running at 50 mcg/kg per minute. The patient remained on assist control mode of ventilation. She is on a tidal volume of 451 and FiO2 of 50% with a PEEP of 12 and a rate of 14. The patient's blood gases showed a pH of 7.21 with episodes of 56 and pO2 of 126. The peak airway pressure is 30. The static airway pressure is 28. Chest x-ray remains unchanged. There is bilateral pulmonary infiltrates which remains essentially unchanged compared to yesterday. She has a triple lumen catheter. Her CVP is around 9. She did receive total of 2 L of IV fluids yesterday which both upper CVP and improved her blood pressure. She remains on a low dose norepinephrine infusion running at 0.04-respiratory KG per minute. She also has an acute kidney injury and a component of non-anion gap metabolic acidosis. Based on that, I gave her 2 A of sodium bicarbonate total of 100 mEq and the patient was also started on abicarb infusion. This improved her non-anion gap metabolic acidosis. The serum bicarb today is up to 24. Creatinine is at 1.6 with a BUN of 82. The patient meanwhile went into atrial fibrillation again with rapid ventricular response. Based on her hypotension, I opted to start the patient on amiodarone. I loaded her with a total of 150 mg of amiodarone bolus and I'm going to load completely over the next 24 hours. She is also on IV cefepime as an empiric antibiotic coverage. She is completed a course of Remdesivir ,, convalescent plasma 1 and the patient is also been on Decadron 6 mg every 24 hours. Reevaluated today on 01/26/20, patient remains in the ICU, intubated and mechanically ventilated. Ventilator settings are assist control rate of 18 tidal volume 450 FiO2 50% PEEP is 12. I did cut down the PEEP to 10 and increase the rate to 20. ABG today showed a pO2 of 98 pCO2 of 46 pH of 7.30. Patient is on IV fluid at 75 mL per hour, propofol at 40 mcg/kg/m, norepinephrine at 0.01 mcg/kg/m, amiodarone 0.5 mg per hour, patient is on Lovenox and on cefepime. Patient has a right subclavian triple-lumen catheter, and a right radial arterial line. Patient did receive 1 unit of convalescent plasma, and receivedremdesivir. Chest x-ray continues to show increase infiltrates with possibly a small left pleural effusion infiltrates are noted bilaterally., WBC count is 11.3 hemoglobin is 8.5. D-dimer is 9.45. BUN is 80 creatinine 1.29. I's are normal. LDH is 02/28/2007 and C-reactive protein is 45.6 Patient was reevaluated today on 01/20/20, remains in the ICU, remains intubated and mechanically ventilated. Ventilator settings are assist control rate of 20 tidal volume is 450 FiO2 is 50% and PEEP of 10. ABG showed a pO2 of 83 pCO2 of 40 pH of 7.37. Patient is on IV fluid at 50 mL per hour 0.9 normal saline on propofol at 40 mcg/kg/m, she is on tube feeding, and today I increased the PEEP down to 8. I plan to give the patient a weaning trial possibly with a pressure support of 8 and CPAP depending on her weaning. I have instructed that we hold propofol, assess weaning parameters, and proceed accordingly. Chest x-ray continues to show evidence of bilateral airspace disease, slight improvement compared to previous x-rays. CBC noted WBC count is 10 hemoglobin is 8.4 electrodes are normal renal profile showed a BUN of 80 creatinine of 1.05 Reevaluated today on 01/21/20, patient remains in the ICU, intubated and mechanically ventilated. Ventilator settings are assist control rate of 20 tidal volume is 450 FiO2 is 55% and PEEP is 12. Went ahead after reviewing the ABG on cut down the FiO2 to 50%. ABG showed a pO2 of 95 pCO2 of 42 pH of 7.38. Chest x-ray continues to show bilateral infiltrates, however the right side seems to be more affected than the left side. Patient remains on propofol at 40 mcg/kg/m, she is on enteral feeding, IV fluids at KVO, and remains on oral amiodarone, also remains on Lovenox. Patient was actually intubated on 01/15. Labs today showed relatively normal CBC, hemoglobin is 8.7. Electrolytes are normal except for bicarb of 21 chloride is 120 and potassium is 5.3. BUN is noted to be 80 and creatinine is 0.73. Hence her fluid was increased Reevaluated today on 01/22/20, patient remains in the ICU, intubated and mechanically ventilated. She is presently on assist control rate of 20 tidal volume is 450 FiO2 is 50% PEEP is 12. ABG showed a pO2 of 98 pCO2 of 42 pH of 7.40. Patient remains on propofol at 40 mcg/kg/m, I have recommended cutting the PEEP down to 8, Sats 50%, and I plan to give the patient hopefully today. Trial of pressure support and CPAP. Chest x-ray is basically unchanged compared to the chest x-ray yesterday, does have some infiltrates mostly in the right lung. Left lung seems to be less involved. WBC count today is 10.4 hemoglobin is 8.4, d-dimer is 4.5 to remains on therapeutic dose of Lovenox. Basic metabolic profile is normal. Patient remains on enteral feedings. Inflammatory markers are improving. Reevaluated today on 01/23/20, remains intubated and mechanically ventilated. Her assist control rate is 20 tidal volume is 450 FiO2 is 50% and PEEP is 8 ABG today showed a pO2 of 94 pCO2 of 40 pH of 7.42. Patient is on propofol at 10 mcg/kg/m, on tube feeding at goal, previously the patient failed sedation holiday, and she had to be placed on sedation and assist control mode of mechanical ventilation. Patient went into A. fib with RVR, last night, and today she is in A. fib but rate seems to be controlled. Her sodium is high today at 148, we'll try to corrected with increasing her free water intake, and we will likely awaken the patient today and possibly give her a trial of pressure support and CPAP. Chest x-ray is definitely showing some improvement in her scattered infiltrates. Compared to previous x-rays. Electrolytes were reviewed, her sodium is 148, and we'll try to corrected. Otherwise no significant abnormality on her labs WBC count is 11.2 hemoglobin is 8.4. Objective - Vital Signs Vital signs: Vital Signs Temp 98.3 F 01/23/20 12:00 Pulse 74 01/23/20 16:00 Resp 23 01/23/20 16:00 BP 133/78 01/21/20 15:00 Pulse Ox 94 L 01/23/20 16:00 Intake & Output 01/22/20 01/23/20 01/23/20 18:59 06:59 18:59 Intake Total 7655.943 7948.846 1131.934 Output Total 523 422 8550 Balance 315.510 478.846 -663.066 Weight 86.7 kg 86.7 kg Intake: IV 312 480 230 .9 @ KVO 240 220 200 Ampicillin-Sulbactam 3 gm 100 In Sodium Chloride 0.9% 100 ml @ 200 mls/hr IVPB Q6HR [facility] Rx#:[id number] Cefepime 2 gm In Sodium 100 Chloride 0.9% 100 ml @ 25 mls/hr IVPB Q12HR [facility] Rx #:[id number] pressure bags 72 60 30 Intake, IV Titration 158.510 56.846 65.934 Amount Dexmedetomidine/0.9% NaCl 58.510 24.725 (Pmx) 400 mcg In Empty Bag 1 bag @ Titrate IV . Q0M [facility] Rx#:[id number] propofoL 1,000 mg In 100 32.121 65.934 Empty Bag 1 bag @ Titrate IV .Q0M [facility] Rx#: [id number] Tube Feeding 690 552 606 Other 90 90 230 Output: Urine 011 924 3236 Other: Voiding Method Indwelling Catheter Indwelling Catheter Indwelling Catheter # Bowel Movements 3 ABP, PAP, CO, CI - Last Documented Arterial Blood Pressure 133/58 - Exam GENERAL EXAM: Revealed 79-year-old female intubated, sedated, on mechanical ventilation. HEAD: Atraumatic, normocephalic. Orogastric tube and endotracheal tube are intact. HEENT: PERRLA, EOMI, no icterus, no neck masses, no JVD, no stridor. Moist mucous membranes. .CHEST: No chest wall deformity. LUNGS: Crackles noted bilaterally more so at the right base. Symmetrical chest expansion. CVS: Irregular rhythm, no S3 gallop. ABDOMEN: No hepatosplenomegaly, normal bowel sounds, no guarding or rigidity. SPINE: No scoliosis or deformity SKIN: No rashes CENTRAL NERVOUS SYSTEM: the patient is currently sedated, on mechanical ventilation could not assess Psychiatric: Could not assess. EXTREMITIES: No clubbing, edema or cyanosis - Labs CBC & Chem 7: 01/23/20 04:30 01/23/20 04:30 Labs: Abnormal Lab Results - Last 24 Hours (Table) 01/22/20 01/22/20 01/23/20 Range/Units 17:42 23:35 04:30 WBC 11.2 H (3.8-10.6) k/uL RBC 2.79 L (3.80-5.40) m/uL Hgb 8.4 L (11.4-16.0) gm/dL Hct 26.7 L (34.0-46.0) % RDW 15.8 H (11.5-15.5) % Plt Count 121 L (150-450) k/uL Neutrophils # 10.5 H (1.3-7.7) k/uL Lymphocytes # 0.4 L (1.0-4.8) k/uL Fibrinogen (200-500) mg/dL D-Dimer (<0.60) mg/L FEU ABG HCO3 (21-25) mmol/L ABG Total CO2 (19-24) mmol/L ABG O2 Saturation (94-97) % Sodium (137-145) mmol/L Chloride (98-107) mmol/L BUN (7-17) mg/dL Glucose (74-99) mg/dL POC Glucose (mg/dL) 185 H 207 H (75-99) mg/dL Ferritin (10.0-291.0) ng/mL C-Reactive Protein (<10.0) mg/L Total Protein (6.3-8.2) g/dL Albumin (3.5-5.0) g/dL 01/23/20 01/23/20 01/23/20 Range/Units 04:30 04:30 05:42 WBC (3.8-10.6) k/uL RBC (3.80-5.40) m/uL Hgb (11.4-16.0) gm/dL Hct (34.0-46.0) % RDW (11.5-15.5) % Plt Count (150-450) k/uL Neutrophils # (1.3-7.7) k/uL Lymphocytes # (1.0-4.8) k/uL Fibrinogen 555 H (200-500) mg/dL D-Dimer 4.19 H (<0.60) mg/L FEU ABG HCO3 26 H (21-25) mmol/L ABG Total CO2 27 H (19-24) mmol/L ABG O2 Saturation 98.5 H (94-97) % Sodium 148 H (137-145) mmol/L Chloride 122 H (98-107) mmol/L BUN 71 H (7-17) mg/dL Glucose 217 H (74-99) mg/dL POC Glucose (mg/dL) (75-99) mg/dL Ferritin 736.8 H (10.0-291.0) ng/mL C-Reactive Protein 72.8 H (<10.0) mg/L Total Protein 4.7 L (6.3-8.2) g/dL Albumin 2.1 L (3.5-5.0) g/dL 01/23/20 01/23/20 Range/Units 06:22 12:56 WBC (3.8-10.6) k/uL RBC (3.80-5.40) m/uL Hgb (11.4-16.0) gm/dL Hct (34.0-46.0) % RDW (11.5-15.5) % Plt Count (150-450) k/uL Neutrophils # (1.3-7.7) k/uL Lymphocytes # (1.0-4.8) k/uL Fibrinogen (200-500) mg/dL D-Dimer (<0.60) mg/L FEU ABG HCO3 (21-25) mmol/L ABG Total CO2 (19-24) mmol/L ABG O2 Saturation (94-97) % Sodium (137-145) mmol/L Chloride (98-107) mmol/L BUN (7-17) mg/dL Glucose (74-99) mg/dL POC Glucose (mg/dL) 198 H 188 H (75-99) mg/dL Ferritin (10.0-291.0) ng/mL C-Reactive Protein (<10.0) mg/L Total Protein (6.3-8.2) g/dL Albumin (3.5-5.0) g/dL Microbiology - Last 24 Hours (Table) 01/17/20 09:11 Blood Culture - Final Blood No Growth after 144 hours 01/17/20 09:11 Blood Culture - Final Blood No Growth after 144 hours Assessment and Plan Assessment: Impression: Acute hypoxic respiratory failure with bilateral pneumonia and ARDS. secondary to Covid 19 pneumonitis. Acute right sided pulmonary embolism and hypercoagulability secondary to jane virus infection. Recurrent atrial fibrillation, maintained on amiodarone. And on anticoagulations therapy. Remote history of deep vein thrombosis patient has been on Xarelto on outpatient basis. Acute kidney injury. Elevated d-dimer. Hypercoagulable state. Hypernatremia secondary to free water deficit. Recommendation: Continue ventilatory support., Continue PEEP at 8. Hold propofol, assess mental status, and assess for a trial of weaning and weaning parameters. Continue nutritional support. Continue anticoagulation therapy./Lovenox Continue Covid 19 cocktail treatment. Continue amiodarone. Orally. Continue GI prophylaxis. Hold sedation today, again today, check weaning parameters, assess for potential weaning Critical care time is over 30 minutes. Time with Patient: Greater than 30
[2020-01-23 16:34] LABS: LD Isoenzymes 1 18 % (19-38); LD Isoenzymes 2 28 % (30-43); LD Isoenzymes 3 23 % (16-26); LD Isoenzymes 4 14 % (3-12); LD Isoenzymes 5 17 % (3-14); Lactacte Dehydrogenase(LD) ISO 944 U/L (120-250)
[2020-01-23 16:34] LABS: LD Isoenzymes 1 23 % (19-38); LD Isoenzymes 2 34 % (30-43); LD Isoenzymes 3 22 % (16-26); LD Isoenzymes 4 11 % (3-12); LD Isoenzymes 5 10 % (3-14); Lactacte Dehydrogenase(LD) ISO 657 U/L (120-250)
[2020-01-23 16:34] LABS: LD Isoenzymes 1 24 % (19-38); LD Isoenzymes 2 35 % (30-43); LD Isoenzymes 3 19 % (16-26); LD Isoenzymes 4 10 % (3-12); LD Isoenzymes 5 12 % (3-14); Lactacte Dehydrogenase(LD) ISO 433 U/L (120-250)
[2020-01-23 17:20] LABS: Glucose,Whole Blood 211 mg/dL (75-99)
--- NOTE | 2020-01-23 18:19 | PN ---
PROGRESS NOTE Mrs. Johnson was admitted to the hospital with COVID pneumonia and respiratory failure. She has been on a mechanical ventilator. The patient developed atrial fibrillation with rapid ventricular response last night. She has been on amiodarone. She was given an additional bolus of amiodarone and started on IV Cardizem drip by Dr. Jones last night. The patient's heart rate is still high, in the range of 120 to 130. Her blood pressure is stable. I am going to start her on metoprolol 50 mg p.o. b.i.d. According to Pulmonology, her chest x-ray shows some improvement compared to the previous studies. Her electrolytes showed sodium 148, potassium 4.5, creatinine 0.75. Her hemoglobin is 8.4. Physical examination reveals a lady who is intubated. The patient is not physically examined, but information is gathered from ICU nurses. The patient is intubated and sedated. Lungs apparently show good air entry. Heart is irregular. FINAL IMPRESSION: 1. Atrial fibrillation with a fast ventricular response. 2. COVID pneumonia. 3. Anemia. PLAN: Continue current medical therapy. I will add metoprolol 50 mg p.o. b.i.d. Will follow. MMODL / IJN: [id number] /
[2020-01-23] MEDS: polyethylene glycoL 3350 17 GM POWD.PACK PO SCH (20:23)
[2020-01-23] MEDS: dexAMETHasone 2 MG TAB PO SCH (20:23)
[2020-01-23 20:41] LABS: Glucose,Whole Blood 204 mg/dL (75-99)
[2020-01-23] MEDS: MELATONIN 5 MG TABLET PO SCH (20:59)
[2020-01-23] MEDS ORDERED: INSULIN DETEMIR (LEVEMIR) 100 UNIT/ML SYR SQ SCH (21:00)
[2020-01-23 23:35] LABS: Glucose,Whole Blood 213 mg/dL (75-99)
[2020-01-24] MEDS: DILTIAZEM 125 MG in SODIUM CHLORIDE 0.9% 100 ML IV SCH (01:59)
[2020-01-24 04:42] LABS: Anisocytosis Slight; Basophils % (A) 0 %; Eosinophils % (A) 0 %; HCT 23.1 % (34.0-46.0); HGB 7.2 gm/dL (11.4-16.0); Hypochromasia Slight; Lymphocytes # (A) 0.3 k/uL (1.0-4.8); Lymphocytes % (A) 3 %; MCHC 31.2 g/dL (31.0-37.0); MCV 96.2 fL (80.0-100.0); Macrocytosis Slight; Mean Platelet Volume 11.2; Monocytes # (A) 0.2 k/uL (0-1.0); Monocytes % (A) 2 %; Neutrophils # (A) 9.4 k/uL (1.3-7.7); Neutrophils % (A) 94 %; Platelet Count 123 k/uL (150-450); RBC 2.41 m/uL (3.80-5.40); RDW 16.1 % (11.5-15.5)
[2020-01-24 05:06] LABS: Albumin 1.9 g/dL (3.5-5.0); Calcium 8.3 mg/dL (8.4-10.2); Magnesium 2.3 mg/dL (1.6-2.3); Phosphorus 2.3 mg/dL (2.5-4.5); Potassium 3.5 mmol/L (3.5-5.1); Total Bilirubin 0.5 mg/dL (0.2-1.3); Total Protein 4.3 g/dL (6.3-8.2)
[2020-01-24 05:15] LABS: ABG Base Excess 3.8 mmol/L; ABG HCO3 28 mmol/L (21-25); ABG Oxygen Saturation 98.6 % (94-97); ABG PCO2 40 mmHg (35-45); ABG PH 7.45 (7.35-7.45); ABG PO2 91 mmHg (83-108); ABG TCO2 29 mmol/L (19-24); Allen Test Performed? Yes
[2020-01-24 06:03] LABS: Glucose,Whole Blood 221 mg/dL (75-99)
[2020-01-24] MEDS: AMPICILLIN-SULBACTAM 3 GM in SODIUM CHLORIDE 0.9% 100 ML IVPB SCH ×3 (06:22→17:44)
[2020-01-24] MEDS: CLEVIDIPINE BUTYRATE 25 MG in EMPTY BAG 1 BAG IV SCH (06:22)
[2020-01-24] MEDS: INSULIN ASPART (NovoLOG) 100 UNIT/ML VIAL SQ SCH ×3 (06:22→17:44)
[2020-01-24] MEDS: DEXTROSE 5% IN WATER 1,000 ML IV SCH ×2 (06:23→17:30)
[2020-01-24] MEDS: POTASSIUM CHLORIDE 20 MEQ in WATER FOR INJECTION 1 100ML.BAG IVPB SCH ×2 (06:26→08:08)
[2020-01-24] MEDS: ALBUTEROL HFA INHALER INHALATION SCH ×4 (07:17→21:18)
[2020-01-24] MEDS ORDERED: POTASSIUM PHOSPHATE 10 MMOL in SODIUM CHLORIDE 0.9% 250 ML IV ONE (08:00)
[2020-01-24] MEDS: ENOXAPARIN 80 MG/0.8 ML SYRINGE SQ SCH ×2 (08:08→20:48)
[2020-01-24] MEDS: CEFEPIME 2 GM in SODIUM CHLORIDE 0.9% 100 ML IVPB SCH ×2 (08:08→20:47)
[2020-01-24] MEDS: CHLORHEXIDINE GLUCONATE 15 ML CUP MUCOUS MEM SCH ×2 (08:09→20:47)
[2020-01-24] MEDS: ASCORBIC ACID 500 MG TAB PO SCH (08:09)
[2020-01-24] MEDS: FAMOTIDINE 20 MG TAB PO SCH (08:09)
[2020-01-24] MEDS: ZINC SULFATE 220 MG CAP PO SCH (08:09)
[2020-01-24] MEDS: AMIODARONE 200 MG TAB PO SCH ×2 (08:09→20:47)
[2020-01-24] MEDS: METOPROLOL TARTRATE 50 MG TAB PO SCH ×2 (08:09→20:47)
[2020-01-24] MEDS: CHOLECALCIFEROL 1,000 UNIT TAB PO SCH (08:09)
[2020-01-24] MEDS ORDERED: LORazepam 2 MG/ML INJ IV STA (11:23)
[2020-01-24 12:32] LABS: Glucose,Whole Blood 158 mg/dL (75-99)
[2020-01-24] MEDS: NOREPINEPHRINE 8 MG in SODIUM CHLORIDE 0.9% 250 ML IV SCH (12:53)
--- NOTE | 2020-01-24 14:50 | P.PN ---
Subjective Progress Note Date: 01/24/20 Principal diagnosis: Acute hypoxic regular failure secondary to covid 19 related pneumonia. On today's evaluation of 01/12/2020, the patient is being seen in follow-up. As mentioned earlier, the patient was infected with jane virus Covid 19 and the patient had an acute Covid 19 related pneumonia with diffuse breath and pulmonary infiltrates. Subsequently, the patient had a CT angios of the chest that showed bilateral pulmonary infiltrates and groundglass opacities in add ition to pulmonary embolism involving mainly the right-sided pulmonary artery branches. Filling defect in the right pulmonary artery and segmental branches in addition to that there is a mild component of strain pattern. Nevertheless, tachycardic and short and a ejection fraction of 6065% and the patient had no enlargement of the right ventricle and there was no evidence of any pulmonary hypertension. Noted the patient oxidation is gradually gotten worse and currently the patient is on high flow oxygen at 6 L with an FiO2 of 85% and this was utilized to bring the saturation above 90%. The patient is on IV heparin with a therapeutic PTT of 58.7. Based on the acute jane virus Covid 19 i nfection, the patient had an LDH of 1455 and a CRP is at 47.9. The patient is having difficulty breathing with minimal amount of activity. Currently she is on bedrest. The patient has no pleurisy. No hemoptysis. Altered mentation. No other significant events overnight. Based on the worsening oxygenation, repeat chest x-ray was done and showed a patchy bilateral pulmonary infiltrates right more than left. No pleural effusion. The findings are essentially stable compared to yesterday's chest x-ray. On 01/18/2020, the patient remains intubated on a mechanical ventilator. This morning, the patient sedated with propofol and is calm and comfortable. Propofol is running at 50 mcg/kg per minute. The patient remained on assist control mode of ventilation. She is on a tidal volume of 451 and FiO2 of 50% with a PEEP of 12 and a rate of 14. The patient's blood gases showed a pH of 7.21 with episodes of 56 and pO2 of 126. The peak airway pressure is 30. The static airway pressure is 28. Chest x-ray remains unchanged. There is bilateral pulmonary infiltrates which remains essentially unchanged compared to yesterday. She has a triple lumen catheter. Her CVP is around 9. She did receive total of 2 L of IV fluids yesterday which both upper CVP and improved her blood pressure. She remains on a low dose norepinephrine infusion running at 0.04-respiratory KG per minute. She also has an acute kidney injury and a component of non-anion gap metabolic acidosis. Based on that, I gave her 2 A of sodium bicarbonate total of 100 mEq and the patient was also started on abicarb infusion. This improved her non-anion gap metabolic acidosis. The serum bicarb today is up to 24. Creatinine is at 1.6 with a BUN of 82. The patient meanwhile went into atrial fibrillation again with rapid ventricular response. Based on her hypotension, I opted to start the patient on amiodarone. I loaded her with a total of 150 mg of amiodarone bolus and I'm going to load completely over the next 24 hours. She is also on IV cefepime as an empiric antibiotic coverage. She is completed a course of Remdesivir ,, convalescent plasma 1 and the patient is also been on Decadron 6 mg every 24 hours. Reevaluated today on 01/26/20, patient remains in the ICU, intubated and mechanically ventilated. Ventilator settings are assist control rate of 18 tidal volume 450 FiO2 50% PEEP is 12. I did cut down the PEEP to 10 and increase the rate to 20. ABG today showed a pO2 of 98 pCO2 of 46 pH of 7.30. Patient is on IV fluid at 75 mL per hour, propofol at 40 mcg/kg/m, norepinephrine at 0.01 mcg/kg/m, amiodarone 0.5 mg per hour, patient is on Lovenox and on cefepime. Patient has a right subclavian triple-lumen catheter, and a right radial arterial line. Patient did receive 1 unit of convalescent plasma, and receivedremdesivir. Chest x-ray continues to show increase infiltrates with possibly a small left pleural effusion infiltrates are noted bilaterally., WBC count is 11.3 hemoglobin is 8.5. D-dimer is 9.45. BUN is 80 creatinine 1.29. I's are normal. LDH is 02/28/2007 and C-reactive protein is 45.6 Patient was reevaluated today on 01/20/20, remains in the ICU, remains intubated and mechanically ventilated. Ventilator settings are assist control rate of 20 tidal volume is 450 FiO2 is 50% and PEEP of 10. ABG showed a pO2 of 83 pCO2 of 40 pH of 7.37. Patient is on IV fluid at 50 mL per hour 0.9 normal saline on propofol at 40 mcg/kg/m, she is on tube feeding, and today I increased the PEEP down to 8. I plan to give the patient a weaning trial possibly with a pressure support of 8 and CPAP depending on her weaning. I have instructed that we hold propofol, assess weaning parameters, and proceed accordingly. Chest x-ray continues to show evidence of bilateral airspace disease, slight improvement compared to previous x-rays. CBC noted WBC count is 10 hemoglobin is 8.4 electrodes are normal renal profile showed a BUN of 80 creatinine of 1.05 Reevaluated today on 01/21/20, patient remains in the ICU, intubated and mechanically ventilated. Ventilator settings are assist control rate of 20 tidal volume is 450 FiO2 is 55% and PEEP is 12. Went ahead after reviewing the ABG on cut down the FiO2 to 50%. ABG showed a pO2 of 95 pCO2 of 42 pH of 7.38. Chest x-ray continues to show bilateral infiltrates, however the right side seems to be more affected than the left side. Patient remains on propofol at 40 mcg/kg/m, she is on enteral feeding, IV fluids at KVO, and remains on oral amiodarone, also remains on Lovenox. Patient was actually intubated on 01/15. Labs today showed relatively normal CBC, hemoglobin is 8.7. Electrolytes are normal except for bicarb of 21 chloride is 120 and potassium is 5.3. BUN is noted to be 80 and creatinine is 0.73. Hence her fluid was increased Reevaluated today on 01/22/20, patient remains in the ICU, intubated and mechanically ventilated. She is presently on assist control rate of 20 tidal volume is 450 FiO2 is 50% PEEP is 12. ABG showed a pO2 of 98 pCO2 of 42 pH of 7.40. Patient remains on propofol at 40 mcg/kg/m, I have recommended cutting the PEEP down to 8, Sats 50%, and I plan to give the patient hopefully today. Trial of pressure support and CPAP. Chest x-ray is basically unchanged compared to the chest x-ray yesterday, does have some infiltrates mostly in the right lung. Left lung seems to be less involved. WBC count today is 10.4 hemoglobin is 8.4, d-dimer is 4.5 to remains on therapeutic dose of Lovenox. Basic metabolic profile is normal. Patient remains on enteral feedings. Inflammatory markers are improving. Reevaluated today on 01/23/20, remains intubated and mechanically ventilated. Her assist control rate is 20 tidal volume is 450 FiO2 is 50% and PEEP is 8 ABG today showed a pO2 of 94 pCO2 of 40 pH of 7.42. Patient is on propofol at 10 mcg/kg/m, on tube feeding at goal, previously the patient failed sedation holiday, and she had to be placed on sedation and assist control mode of mechanical ventilation. Patient went into A. fib with RVR, last night, and today she is in A. fib but rate seems to be controlled. Her sodium is high today at 148, we'll try to corrected with increasing her free water intake, and we will likely awaken the patient today and possibly give her a trial of pressure support and CPAP. Chest x-ray is definitely showing some improvement in her scattered infiltrates. Compared to previous x-rays. Electrolytes were reviewed, her sodium is 148, and we'll try to corrected. Otherwise no significant abnormality on her labs WBC count is 11.2 hemoglobin is 8.4. Reevaluated today on 01/24/20, patient remains off sedation for the last 24 hours. However she remains vented, ventilator settings are assist control rate of 20 tidal volume is 450 FiO2 is 50% and PEEP of 8. ABG showed a pO2 of 91 pCO2 of 40 pH of 7.45. Patient is requiring clevidipine at 5 mg per hour. I was able to cut down her PEEP down to 5. Since her pO2 was 91. I recommended that we continue to hold sedation, however few hours later the patient became extremely agitated, had to give her Ativan, did not seem to control her agitation, and she did not seem to be appropriate, she was just agitated and thrashing coming asynchronous with the ventilator. Hence I recommended that she goes back on propofol. No chest x-ray done today. CBC showed a hemoglobin of 7.2 otherwise unremarkable. Sodium is down to 146, basic metabolic profile otherwise is normal. Objective - Vital Signs Vital signs: Vital Signs Temp 98.5 F 01/24/20 12:00 Pulse 69 01/24/20 12:00 Resp 20 01/24/20 12:00 BP 74/40 01/23/20 21:00 Pulse Ox 92 L 01/24/20 12:00 Intake & Output 01/23/20 01/24/20 01/24/20 18:59 06:59 18:59 Intake Total 8807.459 1251.999 1473 Output Total 2945 2026 920 Balance -1449.399 926.999 553 Weight 86.7 kg 86.2 kg Intake: IV 276 1376 638 .9 @ KVO 240 240 20 Dextrose 5% in Water 1, 1100 600 000 ml @ 100 mls/hr IV . Q10H [facility] Rx#:[id number] pressure bags 36 36 18 Intake, IV Titration 73.601 261.999 50 Amount Clevidipine Butyrate 25 7.667 71.999 50 mg In Empty Bag 1 bag @ 1 MG/HR 2 mls/hr IV .Q24H [facility] Rx#:[id number] Diltiazem 125 mg In 90 Sodium Chloride 0.9% 100 ml @ 5 MG/HR 5 mls/hr IV .Q24H [facility] Rx#:[id number] propofoL 1,000 mg In 65.934 100 Empty Bag 1 bag @ Titrate IV .Q0M [facility] Rx#: [id number] Tube Feeding 716 715 385 Other 430 600 400 Output: Urine 2945 6 920 Other: Voiding Method Indwelling Catheter Indwelling Catheter Indwelling Catheter ABP, PAP, CO, CI - Last Documented Arterial Blood Pressure 86/43 - Exam GENERAL EXAM: Revealed 79-year-old female intubated, off sedation, not following any instructions. Opens eyes, HEAD: Atraumatic, normocephalic. Orogastric tube and endotracheal tube are intact. HEENT: PERRLA, EOMI, no icterus, no neck masses, no JVD, no stridor. Moist mucous membranes. .CHEST: No chest wall deformity. LUNGS: Crackles noted bilaterally more so at the right base. Symmetrical chest expansion. CVS: Irregular rhythm, no S3 gallop. ABDOMEN: No hepatosplenomegaly, normal bowel sounds, no guarding or rigidity. SPINE: No scoliosis or deformity SKIN: No rashes CENTRAL NERVOUS SYSTEM: Opens eyes, but does not follow any instructions, off sedation completely. Psychiatric: Could not assess. EXTREMITIES: No clubbing, edema or cyanosis - Labs CBC & Chem 7: 01/24/20 04:22 01/24/20 04:22 Labs: Abnormal Lab Results - Last 24 Hours (Table) 01/16/20 01/17/20 01/19/20 Range/Units 04:25 03:28 07:32 RBC (3.80-5.40) m/uL Hgb (11.4-16.0) gm/dL Hct (34.0-46.0) % RDW (11.5-15.5) % Plt Count (150-450) k/uL Neutrophils # (1.3-7.7) k/uL Lymphocytes # (1.0-4.8) k/uL ABG HCO3 (21-25) mmol/L ABG Total CO2 (19-24) mmol/L ABG O2 Saturation (94-97) % Sodium (137-145) mmol/L Chloride (98-107) mmol/L BUN (7-17) mg/dL Glucose (74-99) mg/dL POC Glucose (mg/dL) (75-99) mg/dL Calcium (8.4-10.2) mg/dL Phosphorus (2.5-4.5) mg/dL LD Isoenzymes 944 H 657 H 433 H (120-250) U/L LD 1 18 L (19-38) % LD 2 28 L (30-43) % LD 4 14 H (3-12) % LD 5 17 H (3-14) % Total Protein (6.3-8.2) g/dL Albumin (3.5-5.0) g/dL 01/23/20 01/23/20 01/23/20 Range/Units 17:19 20:39 23:33 RBC (3.80-5.40) m/uL Hgb (11.4-16.0) gm/dL Hct (34.0-46.0) % RDW (11.5-15.5) % Plt Count (150-450) k/uL Neutrophils # (1.3-7.7) k/uL Lymphocytes # (1.0-4.8) k/uL ABG HCO3 (21-25) mmol/L ABG Total CO2 (19-24) mmol/L ABG O2 Saturation (94-97) % Sodium (137-145) mmol/L Chloride (98-107) mmol/L BUN (7-17) mg/dL Glucose (74-99) mg/dL POC Glucose (mg/dL) 211 H 204 H 213 H (75-99) mg/dL Calcium (8.4-10.2) mg/dL Phosphorus (2.5-4.5) mg/dL LD Isoenzymes (120-250) U/L LD 1 (19-38) % LD 2 (30-43) % LD 4 (3-12) % LD 5 (3-14) % Total Protein (6.3-8.2) g/dL Albumin (3.5-5.0) g/dL 01/24/20 01/24/20 01/24/20 Range/Units 04:22 04:22 05:11 RBC 2.41 L (3.80-5.40) m/uL Hgb 7.2 L (11.4-16.0) gm/dL Hct 23.1 L (34.0-46.0) % RDW 16.1 H (11.5-15.5) % Plt Count 123 L (150-450) k/uL Neutrophils # 9.4 H (1.3-7.7) k/uL Lymphocytes # 0.3 L (1.0-4.8) k/uL ABG HCO3 28 H (21-25) mmol/L ABG Total CO2 29 H (19-24) mmol/L ABG O2 Saturation 98.6 H (94-97) % Sodium 146 H (137-145) mmol/L Chloride 117 H (98-107) mmol/L BUN 71 H (7-17) mg/dL Glucose 189 H (74-99) mg/dL POC Glucose (mg/dL) (75-99) mg/dL Calcium 8.3 L (8.4-10.2) mg/dL Phosphorus 2.3 L (2.5-4.5) mg/dL LD Isoenzymes (120-250) U/L LD 1 (19-38) % LD 2 (30-43) % LD 4 (3-12) % LD 5 (3-14) % Total Protein 4.3 L (6.3-8.2) g/dL Albumin 1.9 L (3.5-5.0) g/dL 01/24/20 01/24/20 Range/Units 06:01 12:30 RBC (3.80-5.40) m/uL Hgb (11.4-16.0) gm/dL Hct (34.0-46.0) % RDW (11.5-15.5) % Plt Count (150-450) k/uL Neutrophils # (1.3-7.7) k/uL Lymphocytes # (1.0-4.8) k/uL ABG HCO3 (21-25) mmol/L ABG Total CO2 (19-24) mmol/L ABG O2 Saturation (94-97) % Sodium (137-145) mmol/L Chloride (98-107) mmol/L BUN (7-17) mg/dL Glucose (74-99) mg/dL POC Glucose (mg/dL) 221 H 158 H (75-99) mg/dL Calcium (8.4-10.2) mg/dL Phosphorus (2.5-4.5) mg/dL LD Isoenzymes (120-250) U/L LD 1 (19-38) % LD 2 (30-43) % LD 4 (3-12) % LD 5 (3-14) % Total Protein (6.3-8.2) g/dL Albumin (3.5-5.0) g/dL Microbiology - Last 24 Hours (Table) 01/17/20 09:11 Blood Culture - Final Blood No Growth after 144 hours 01/17/20 09:11 Blood Culture - Final Blood No Growth after 144 hours Assessment and Plan Assessment: Impression: Acute hypoxic respiratory failure with bilateral pneumonia and ARDS. secondary to Covid 19 pneumonitis. Acute right sided pulmonary embolism and hypercoagulability secondary to jane virus infection. Recurrent atrial fibrillation, maintained on amiodarone. And on anticoagulations therapy. Remote history of deep vein thrombosis patient has been on Xarelto on outpatient basis. Acute kidney injury. Elevated d-dimer. Hypercoagulable state. Hypernatremia secondary to free water deficit. Suspect acute toxic metabolic encephalopathy, could also be related to her Covid 19 infection. Recommendation: Continue ventilatory support., Cut down PEEP to 5. Minimize sedation as much as possible. Frequent assessment of neurological status. Continue nutritional support. Continue anticoagulation therapy./Lovenox Continue Covid 19 cocktail treatment. Continue amiodarone. Orally. Continue GI prophylaxis. Not quite ready for weaning or extubation, however the patient is improving overall. Critical care time is over 30 minutes. Time with Patient: Greater than 30
--- NOTE | 2020-01-24 15:46 | P.PN ---
Subjective Progress Note Date: 01/24/20 (delayed charting seen at 1100) Principal diagnosis: shortness of breath Patient is a 79-year-old female history of DVT who presented to the emergency department with complaints of shortness of breath. She initially had a DVT and stopped her Xarelto as she was concerned about an interaction with the azithromycin she had been prescribed due to COVID 19. In the ER she underwent an extensive evaluation. She is on have a pulmonary embolism was started on a heparin drip, she was found have Covid 19 pneumonia and was started on steroids, zinc, vitamin C, and melatonin. Pulmonary was consulted. She was admitted to the selective care unit. She was found to be in atrial fibrillation which was new onset. Cardiology was consulted. She was started on low-dose metoprolol. On the evening of 01/09 she went and A. fib with RVR was started on Cardizem drip. On the morning of 01/10 she was seen by cardiology Cardizem drip was discontinued and she was started on metoprolol 25 mg twice a day. Her oxygen requirements were increasing throughout her hospital stay. Pulmonary determined she was not a candidate for aggressive ears are Covid symptoms that started 2 w eeks prior. Case had been discussed with vascular who felt she was not a candidate for catheter directed TPA/EKOS. On 01/11 she was seen by pulmonary and started on Remedesivir. She was transferred to the ICU overnight on 01/11 due to progressive hypoxemia. She required aerosol as well as a nonrebreather. By the morning of 01/14 she had received 2 units of convalescent plasma. On the morning of 01/15 she was requiring BiPAP. She had a triple-lumen catheter placed. She failed BiPAP therapy and was subsequently intubated overnight on 01/15. After intubation she again went into A. fib with RVR and required a Cardizem drip for a short time but then converted to normal sinus rhythm. She did require levothyroxine secondary to hypotension. She again went into A. fib with RVR on 01/17 and secondary to her hypotension she was started on amiodarone. Levophed weaned off by 01/18 and she was able to be switched to oral amiodarone. During her ICU stay her heparin drip was transitioned to Lovenox subcutaneous. She still has not been able to wean from the ventilator. PEEP decreased 01/21. She has following commands but very weak on 01/22. On 01/23 her sedation was stoppe dand she did become agitated requiring resedation. Patient seen and examined at bedside. Per nursing no acute events overnight. Patient required to be sedated again and had some hypoxia but PEEP had been decreased. General: Ill-appearing, no distress, appears at stated age Derm: warm, dry Head: atraumatic, normocephalic, symmetric Eyes: EOMI, no lid lag, anicteric sclera Mouth: no lip lesion, mucus membranes moist Cardiovascular: S1S2 reg, no murmur, positive posterior tibial pulse bilateral, Lungs: Coarse breath sounds bilateral, no rhonchi, no rales, no accessory muscle use Abdominal: soft, nontender to palpation, no guarding, no appreciable organomegaly Ext: no gross muscle atrophy, diffuse anasarca, no contractures Neuro: No gross muscle atrophy, no tremors noted Psych: lethargic but open eyes Covid 19 pneumonia with acute hypoxic respiratory failure, ARDS - Completed Remdesivir on 01/15 - Dexamethasone day #15 - Status post convalescent plasma 01/14 - Pulmonary recommendations completed - Continue zinc, vitamin C, vitamin D, Pepcid, and melatonin DIffuse Anasarca - Lasix X 1 given 01/22. Unable to give today due to low BP Pulmonary embolus without right ventricular strain, history of prior DVT - Lovenox P. A fib with RVR - lovenox, amio - now in NSR Entercoccus and E coli UTI - cefepime and Unasyn D #4 Thrombocytopenia KALYAN due to ATN with resultant metabolic acidosis and hyperphosphatemia, resolved Septic shock, resolved Hypokalemia, resolved DVT prophylaxis: Lovenox for PE Discussed with: Nursing Anticipated discharge: undetermined Anticipated discharge place: undetermined A total of 25 minutes was spent on the care of this complex patient more than 50% of the time was spent in counseling and care coordination. Objective - Vital Signs Vital signs: Vital Signs Temp 98.5 F 01/24/20 12:00 Pulse 104 H 01/24/20 15:00 Resp 23 01/24/20 15:00 BP 74/40 01/23/20 21:00 Pulse Ox 96 01/24/20 15:00 Intake & Output 01/23/20 01/24/20 01/24/20 18:59 06:59 18:59 Intake Total 5911.309 7614.999 2001 Output Total 2945 2025 1245 Balance -1449.399 926.999 757 Weight 86.7 kg 86.2 kg Intake: IV 276 1376 947 .9 @ KVO 240 240 20 Dextrose 5% in Water 1, 1100 900 000 ml @ 100 mls/hr IV . Q10H [facility] Rx#:[id number] pressure bags 36 36 27 Intake, IV Titration 73.601 261.999 50 Amount Clevidipine Butyrate 25 7.667 71.999 50 mg In Empty Bag 1 bag @ 1 MG/HR 2 mls/hr IV .Q24H [facility] Rx#:[id number] Diltiazem 125 mg In 90 Sodium Chloride 0.9% 100 ml @ 5 MG/HR 5 mls/hr IV .Q24H [facility] Rx#:[id number] propofoL 1,000 mg In 65.934 100 Empty Bag 1 bag @ Titrate IV .Q0M [facility] Rx#: [id number] Tube Feeding 716 715 605 Other 430 600 400 Output: Urine 2945 6 1245 Other: Voiding Method Indwelling Catheter Indwelling Catheter Indwelling Catheter ABP, PAP, CO, CI - Last Documented Arterial Blood Pressure 94/51 - Labs CBC & Chem 7: 01/24/20 04:22 01/24/20 04:22 Labs: Abnormal Lab Results - Last 24 Hours (Table) 01/16/20 01/17/20 01/19/20 Range/Units 04:25 03:28 07:32 RBC (3.80-5.40) m/uL Hgb (11.4-16.0) gm/dL Hct (34.0-46.0) % RDW (11.5-15.5) % Plt Count (150-450) k/uL Neutrophils # (1.3-7.7) k/uL Lymphocytes # (1.0-4.8) k/uL ABG HCO3 (21-25) mmol/L ABG Total CO2 (19-24) mmol/L ABG O2 Saturation (94-97) % Sodium (137-145) mmol/L Chloride (98-107) mmol/L BUN (7-17) mg/dL Glucose (74-99) mg/dL POC Glucose (mg/dL) (75-99) mg/dL Calcium (8.4-10.2) mg/dL Phosphorus (2.5-4.5) mg/dL LD Isoenzymes 944 H 657 H 433 H (120-250) U/L LD 1 18 L (19-38) % LD 2 28 L (30-43) % LD 4 14 H (3-12) % LD 5 17 H (3-14) % Total Protein (6.3-8.2) g/dL Albumin (3.5-5.0) g/dL 01/23/20 01/23/20 01/23/20 Range/Units 17:19 20:39 23:33 RBC (3.80-5.40) m/uL Hgb (11.4-16.0) gm/dL Hct (34.0-46.0) % RDW (11.5-15.5) % Plt Count (150-450) k/uL Neutrophils # (1.3-7.7) k/uL Lymphocytes # (1.0-4.8) k/uL ABG HCO3 (21-25) mmol/L ABG Total CO2 (19-24) mmol/L ABG O2 Saturation (94-97) % Sodium (137-145) mmol/L Chloride (98-107) mmol/L BUN (7-17) mg/dL Glucose (74-99) mg/dL POC Glucose (mg/dL) 211 H 204 H 213 H (75-99) mg/dL Calcium (8.4-10.2) mg/dL Phosphorus (2.5-4.5) mg/dL LD Isoenzymes (120-250) U/L LD 1 (19-38) % LD 2 (30-43) % LD 4 (3-12) % LD 5 (3-14) % Total Protein (6.3-8.2) g/dL Albumin (3.5-5.0) g/dL 01/24/20 01/24/20 01/24/20 Range/Units 04:22 04:22 05:11 RBC 2.41 L (3.80-5.40) m/uL Hgb 7.2 L (11.4-16.0) gm/dL Hct 23.1 L (34.0-46.0) % RDW 16.1 H (11.5-15.5) % Plt Count 123 L (150-450) k/uL Neutrophils # 9.4 H (1.3-7.7) k/uL Lymphocytes # 0.3 L (1.0-4.8) k/uL ABG HCO3 28 H (21-25) mmol/L ABG Total CO2 29 H (19-24) mmol/L ABG O2 Saturation 98.6 H (94-97) % Sodium 146 H (137-145) mmol/L Chloride 117 H (98-107) mmol/L BUN 71 H (7-17) mg/dL Glucose 189 H (74-99) mg/dL POC Glucose (mg/dL) (75-99) mg/dL Calcium 8.3 L (8.4-10.2) mg/dL Phosphorus 2.3 L (2.5-4.5) mg/dL LD Isoenzymes (120-250) U/L LD 1 (19-38) % LD 2 (30-43) % LD 4 (3-12) % LD 5 (3-14) % Total Protein 4.3 L (6.3-8.2) g/dL Albumin 1.9 L (3.5-5.0) g/dL 01/24/20 01/24/20 Range/Units 06:01 12:30 RBC (3.80-5.40) m/uL Hgb (11.4-16.0) gm/dL Hct (34.0-46.0) % RDW (11.5-15.5) % Plt Count (150-450) k/uL Neutrophils # (1.3-7.7) k/uL Lymphocytes # (1.0-4.8) k/uL ABG HCO3 (21-25) mmol/L ABG Total CO2 (19-24) mmol/L ABG O2 Saturation (94-97) % Sodium (137-145) mmol/L Chloride (98-107) mmol/L BUN (7-17) mg/dL Glucose (74-99) mg/dL POC Glucose (mg/dL) 221 H 158 H (75-99) mg/dL Calcium (8.4-10.2) mg/dL Phosphorus (2.5-4.5) mg/dL LD Isoenzymes (120-250) U/L LD 1 (19-38) % LD 2 (30-43) % LD 4 (3-12) % LD 5 (3-14) % Total Protein (6.3-8.2) g/dL Albumin (3.5-5.0) g/dL Microbiology - Last 24 Hours (Table) 01/17/20 09:11 Blood Culture - Final Blood No Growth after 144 hours 01/17/20 09:11 Blood Culture - Final Blood No Growth after 144 hours
[2020-01-24] MEDS ORDERED: SODIUM CHLORIDE 0.9% 1,000 ML IV ONE (17:23)
[2020-01-24 17:35] LABS: Glucose,Whole Blood 160 mg/dL (75-99)
[2020-01-24] MEDS: dexAMETHasone 2 MG TAB PO SCH (20:47)
[2020-01-24] MEDS: INSULIN DETEMIR (LEVEMIR) 100 UNIT/ML SYR SQ SCH (20:48)
[2020-01-24] MEDS: MELATONIN 5 MG TABLET PO SCH (20:48)
[2020-01-24] MEDS: polyethylene glycoL 3350 17 GM POWD.PACK PO SCH ×2 (20:48→20:52)
[2020-01-25 00:45] LABS: Glucose,Whole Blood 194 mg/dL (75-99)
[2020-01-25] MEDS: AMPICILLIN-SULBACTAM 3 GM in SODIUM CHLORIDE 0.9% 100 ML IVPB SCH ×5 (01:15→23:59)
[2020-01-25] MEDS: INSULIN ASPART (NovoLOG) 100 UNIT/ML VIAL SQ SCH ×5 (01:15→23:59)
[2020-01-25 05:19] LABS: Anisocytosis Slight; Basophils % (A) 0 %; Eosinophils % (A) 0 %; HCT 20.6 % (34.0-46.0); Hypochromasia Moderate; Lymphocytes # (A) 0.3 k/uL (1.0-4.8); Lymphocytes % (A) 4 %; MCH 30.1 pg (25.0-35.0); MCHC 30.9 g/dL (31.0-37.0); MCV 97.3 fL (80.0-100.0); Macrocytosis Slight; Monocytes # (A) 0.2 k/uL (0-1.0); Monocytes % (A) 3 %; Neutrophils # (A) 6.7 k/uL (1.3-7.7); Neutrophils % (A) 92 %; Platelet Count 107 k/uL (150-450); RBC 2.11 m/uL (3.80-5.40); RDW 16.5 % (11.5-15.5); WBC 7.3 k/uL (3.8-10.6)
[2020-01-25 05:27] LABS: HGB 6.4 gm/dL (11.4-16.0)
[2020-01-25 05:32] LABS: ALT 14 U/L (4-34); AST 22 U/L (14-36); African American GFR (CKD) >90 (>60 ml/min/1.73 sqM); Albumin 1.7 g/dL (3.5-5.0); Alkaline Phosphatase 46 U/L (38-126); Anion Gap -2 mmol/L; Blood Urea Nitrogen 60 mg/dL (7-17); Calcium 7.9 mg/dL (8.4-10.2); Carbon Dioxide 29 mmol/L (22-30); Chloride 117 mmol/L (98-107); Glucose 196 mg/dL (74-99); Non-African American GFR(CKD) 83 (>60 ml/min/1.73 sqM); Potassium 4.2 mmol/L (3.5-5.1); Sodium 144 mmol/L (137-145); Total Bilirubin 0.5 mg/dL (0.2-1.3); Total Protein 3.8 g/dL (6.3-8.2)
[2020-01-25 05:50] LABS: ABG Base Excess 2.5 mmol/L; ABG HCO3 27 mmol/L (21-25); ABG Oxygen Saturation 98.7 % (94-97); ABG PCO2 39 mmHg (35-45); ABG PH 7.44 (7.35-7.45); ABG PO2 87 mmHg (83-108); ABG TCO2 28 mmol/L (19-24); Allen Test Performed? Yes
[2020-01-25] MEDS: DEXTROSE 5% IN WATER 1,000 ML IV SCH ×2 (06:11→11:11)
--- NOTE | 2020-01-25 06:27 | XR ---
EXAMINATION TYPE: XR chest 1V DATE OF EXAM: 01/25/2020 CLINICAL HISTORY: Difficulty breathing progress study. TECHNIQUE: Single AP portable semiupright view of the chest is obtained. COMPARISON: Chest x-ray from 2 days earlier and older studies. FINDINGS: Stable endotracheal and coiled orogastric tube into hiatal hernia. Stable right sided subc lavian central venous catheter. Underlying scoliosis redemonstrated. Cardiac silhouette size stable a nd upper limits of normal. Worsening bilateral multifocal airspace opacities. IMPRESSION: Worsening bilateral multifocal airspace opacities consistent with worsening covid -19 inf ection progression.
[2020-01-25 06:39] LABS: Glucose,Whole Blood 208 mg/dL (75-99)
[2020-01-25] MEDS: METOPROLOL TARTRATE 50 MG TAB PO SCH ×2 (07:59→20:51)
[2020-01-25] MEDS: CHOLECALCIFEROL 1,000 UNIT TAB PO SCH (07:59)
[2020-01-25] MEDS: AMIODARONE 200 MG TAB PO SCH ×2 (07:59→20:52)
[2020-01-25] MEDS: FAMOTIDINE 20 MG TAB PO SCH (07:59)
[2020-01-25] MEDS: ASCORBIC ACID 500 MG TAB PO SCH (07:59)
[2020-01-25] MEDS: ZINC SULFATE 220 MG CAP PO SCH (07:59)
[2020-01-25] MEDS: CEFEPIME 2 GM in SODIUM CHLORIDE 0.9% 100 ML IVPB SCH ×2 (08:00→20:50)
[2020-01-25] MEDS: CHLORHEXIDINE GLUCONATE 15 ML CUP MUCOUS MEM SCH ×2 (08:00→20:51)
[2020-01-25] MEDS: ALBUTEROL HFA INHALER INHALATION SCH ×4 (08:35→21:14)
[2020-01-25 11:16] LABS: Glucose,Whole Blood 173 mg/dL (75-99)
--- NOTE | 2020-01-25 14:00 | P.PN ---
Subjective Progress Note Date: 01/25/20 Principal diagnosis: Acute hypoxic regular failure secondary to covid 19 related pneumonia. On today's evaluation of 01/12/2020, the patient is being seen in follow-up. As mentioned earlier, the patient was infected with jane virus Covid 19 and the patient had an acute Covid 19 related pneumonia with diffuse breath and pulmonary infiltrates. Subsequently, the patient had a CT angios of the chest that showed bilateral pulmonary infiltrates and groundglass opacities in add ition to pulmonary embolism involving mainly the right-sided pulmonary artery branches. Filling defect in the right pulmonary artery and segmental branches in addition to that there is a mild component of strain pattern. Nevertheless, tachycardic and short and a ejection fraction of 6065% and the patient had no enlargement of the right ventricle and there was no evidence of any pulmonary hypertension. Noted the patient oxidation is gradually gotten worse and currently the patient is on high flow oxygen at 6 L with an FiO2 of 85% and this was utilized to bring the saturation above 90%. The patient is on IV heparin with a therapeutic PTT of 58.7. Based on the acute jane virus Covid 19 i nfection, the patient had an LDH of 1455 and a CRP is at 47.9. The patient is having difficulty breathing with minimal amount of activity. Currently she is on bedrest. The patient has no pleurisy. No hemoptysis. Altered mentation. No other significant events overnight. Based on the worsening oxygenation, repeat chest x-ray was done and showed a patchy bilateral pulmonary infiltrates right more than left. No pleural effusion. The findings are essentially stable compared to yesterday's chest x-ray. On 01/18/2020, the patient remains intubated on a mechanical ventilator. This morning, the patient sedated with propofol and is calm and comfortable. Propofol is running at 50 mcg/kg per minute. The patient remained on assist control mode of ventilation. She is on a tidal volume of 451 and FiO2 of 50% with a PEEP of 12 and a rate of 14. The patient's blood gases showed a pH of 7.21 with episodes of 56 and pO2 of 126. The peak airway pressure is 30. The static airway pressure is 28. Chest x-ray remains unchanged. There is bilateral pulmonary infiltrates which remains essentially unchanged compared to yesterday. She has a triple lumen catheter. Her CVP is around 9. She did receive total of 2 L of IV fluids yesterday which both upper CVP and improved her blood pressure. She remains on a low dose norepinephrine infusion running at 0.04-respiratory KG per minute. She also has an acute kidney injury and a component of non-anion gap metabolic acidosis. Based on that, I gave her 2 A of sodium bicarbonate total of 100 mEq and the patient was also started on abicarb infusion. This improved her non-anion gap metabolic acidosis. The serum bicarb today is up to 24. Creatinine is at 1.6 with a BUN of 82. The patient meanwhile went into atrial fibrillation again with rapid ventricular response. Based on her hypotension, I opted to start the patient on amiodarone. I loaded her with a total of 150 mg of amiodarone bolus and I'm going to load completely over the next 24 hours. She is also on IV cefepime as an empiric antibiotic coverage. She is completed a course of Remdesivir ,, convalescent plasma 1 and the patient is also been on Decadron 6 mg every 24 hours. Reevaluated today on 01/26/20, patient remains in the ICU, intubated and mechanically ventilated. Ventilator settings are assist control rate of 18 tidal volume 450 FiO2 50% PEEP is 12. I did cut down the PEEP to 10 and increase the rate to 20. ABG today showed a pO2 of 98 pCO2 of 46 pH of 7.30. Patient is on IV fluid at 75 mL per hour, propofol at 40 mcg/kg/m, norepinephrine at 0.01 mcg/kg/m, amiodarone 0.5 mg per hour, patient is on Lovenox and on cefepime. Patient has a right subclavian triple-lumen catheter, and a right radial arterial line. Patient did receive 1 unit of convalescent plasma, and receivedremdesivir. Chest x-ray continues to show increase infiltrates with possibly a small left pleural effusion infiltrates are noted bilaterally., WBC count is 11.3 hemoglobin is 8.5. D-dimer is 9.45. BUN is 80 creatinine 1.29. I's are normal. LDH is 02/28/2007 and C-reactive protein is 45.6 Patient was reevaluated today on 01/20/20, remains in the ICU, remains intubated and mechanically ventilated. Ventilator settings are assist control rate of 20 tidal volume is 450 FiO2 is 50% and PEEP of 10. ABG showed a pO2 of 83 pCO2 of 40 pH of 7.37. Patient is on IV fluid at 50 mL per hour 0.9 normal saline on propofol at 40 mcg/kg/m, she is on tube feeding, and today I increased the PEEP down to 8. I plan to give the patient a weaning trial possibly with a pressure support of 8 and CPAP depending on her weaning. I have instructed that we hold propofol, assess weaning parameters, and proceed accordingly. Chest x-ray continues to show evidence of bilateral airspace disease, slight improvement compared to previous x-rays. CBC noted WBC count is 10 hemoglobin is 8.4 electrodes are normal renal profile showed a BUN of 80 creatinine of 1.05 Reevaluated today on 01/21/20, patient remains in the ICU, intubated and mechanically ventilated. Ventilator settings are assist control rate of 20 tidal volume is 450 FiO2 is 55% and PEEP is 12. Went ahead after reviewing the ABG on cut down the FiO2 to 50%. ABG showed a pO2 of 95 pCO2 of 42 pH of 7.38. Chest x-ray continues to show bilateral infiltrates, however the right side seems to be more affected than the left side. Patient remains on propofol at 40 mcg/kg/m, she is on enteral feeding, IV fluids at KVO, and remains on oral amiodarone, also remains on Lovenox. Patient was actually intubated on 01/15. Labs today showed relatively normal CBC, hemoglobin is 8.7. Electrolytes are normal except for bicarb of 21 chloride is 120 and potassium is 5.3. BUN is noted to be 80 and creatinine is 0.73. Hence her fluid was increased Reevaluated today on 01/22/20, patient remains in the ICU, intubated and mechanically ventilated. She is presently on assist control rate of 20 tidal volume is 450 FiO2 is 50% PEEP is 12. ABG showed a pO2 of 98 pCO2 of 42 pH of 7.40. Patient remains on propofol at 40 mcg/kg/m, I have recommended cutting the PEEP down to 8, Sats 50%, and I plan to give the patient hopefully today. Trial of pressure support and CPAP. Chest x-ray is basically unchanged compared to the chest x-ray yesterday, does have some infiltrates mostly in the right lung. Left lung seems to be less involved. WBC count today is 10.4 hemoglobin is 8.4, d-dimer is 4.5 to remains on therapeutic dose of Lovenox. Basic metabolic profile is normal. Patient remains on enteral feedings. Inflammatory markers are improving. Reevaluated today on 01/23/20, remains intubated and mechanically ventilated. Her assist control rate is 20 tidal volume is 450 FiO2 is 50% and PEEP is 8 ABG today showed a pO2 of 94 pCO2 of 40 pH of 7.42. Patient is on propofol at 10 mcg/kg/m, on tube feeding at goal, previously the patient failed sedation holiday, and she had to be placed on sedation and assist control mode of mechanical ventilation. Patient went into A. fib with RVR, last night, and today she is in A. fib but rate seems to be controlled. Her sodium is high today at 148, we'll try to corrected with increasing her free water intake, and we will likely awaken the patient today and possibly give her a trial of pressure support and CPAP. Chest x-ray is definitely showing some improvement in her scattered infiltrates. Compared to previous x-rays. Electrolytes were reviewed, her sodium is 148, and we'll try to corrected. Otherwise no significant abnormality on her labs WBC count is 11.2 hemoglobin is 8.4. Reevaluated today on 01/24/20, patient remains off sedation for the last 24 hours. However she remains vented, ventilator settings are assist control rate of 20 tidal volume is 450 FiO2 is 50% and PEEP of 8. ABG showed a pO2 of 91 pCO2 of 40 pH of 7.45. Patient is requiring clevidipine at 5 mg per hour. I was able to cut down her PEEP down to 5. Since her pO2 was 91. I recommended that we continue to hold sedation, however few hours later the patient became extremely agitated, had to give her Ativan, did not seem to control her agitation, and she did not seem to be appropriate, she was just agitated and thrashing coming asynchronous with the ventilator. Hence I recommended that she goes back on propofol. No chest x-ray done today. CBC showed a hemoglobin of 7.2 otherwise unremarkable. Sodium is down to 146, basic metabolic profile otherwise is normal. Patient was reevaluated today on 01/25/20. Remains in the ICU, intubated and mechanically ventilated. Her ventilator settings are assist control rate of 20 FiO2 is 70% PEEP was at 5, volume is 4. Tidal volume is 450 ABG today showed a pO2 of 87 pCO2 of 39 pH of 7.44. Yesterday patient was given a trial of weaning, however she became extremely restless and agitated. Had to be placed back on propofol, and she is now back on propofol at 10 mcg/kg/m. She is not requiring any pressors. She is on enteral feeding. And her hemoglobin today is noted to be low at 6.4, and I'm recommending a unit of packed RBCs to be transfused. She seems to be overusing blood from the site of the right subclavian triple-lumen catheter, went ahead and cut down her Lovenox to 60 mg subcu every 12 hours instead of 80 mg subcu every 12 hours. Chest x-ray, showed worsening bilateral multifocal infiltrates. And obviously the patient is not ready to be weaned again today. Hence I have increased her PEEP back to 10, and I plan to titrate her FiO2 down to 55% if possible. Discussed her condition wi th the today, and updated him on her status. Explained time that she is not ready to be weaned, and she will be kept sedated today. Objective - Vital Signs Vital signs: Vital Signs Temp 97.9 F 01/25/20 08:00 Pulse 59 L 01/25/20 11:00 Resp 22 01/25/20 11:00 BP 126/65 01/25/20 11:00 Pulse Ox 95 01/25/20 11:00 Intake & Output 01/24/20 01/25/20 01/25/20 18:59 06:59 18:59 Intake Total 2676 2568 1095 Output Total 1495 1111 775 Balance 1181 1457 320 Weight 84 kg Intake: IV 1256 1353 565 .9 @ KVO 20 20 50 Ampicillin-Sulbactam 3 gm 100 In Sodium Chloride 0.9% 100 ml @ 200 mls/hr IVPB Q6HR [facility] Rx#:[id number] Cefepime 2 gm In Sodium 100 Chloride 0.9% 100 ml @ 25 mls/hr IVPB Q12HR [facility] Rx #:[id number] Dextrose 5% in Water 1, 1200 1100 500 000 ml @ 100 mls/hr IV . Q10H [facility] Rx#:[id number] pressure bags 36 33 15 Intake, IV Titration 50 Amount Clevidipine Butyrate 25 50 mg In Empty Bag 1 bag @ 1 MG/HR 2 mls/hr IV .Q24H [facility] Rx#:[id number] Tube Feeding 770 715 330 Other 600 500 200 Output: Urine 1495 1110 775 Stool 1 Other: Voiding Method Indwelling Catheter Indwelling Catheter Indwelling Catheter # Bowel Movements 1 ABP, PAP, CO, CI - Last Documented Arterial Blood Pressure 149/66 - Exam GENERAL EXAM: Revealed 79-year-old female intubated, on propofol, opens eyes to verbal stimuli and painful stimuli, but does not follow any other instructions. HEAD: Atraumatic, normocephalic. Orogastric tube and endotracheal tube are intact. HEENT: PERRLA, EOMI, no icterus, no neck masses, no JVD, no stridor. Moist mucous membranes. .CHEST: No chest wall deformity. LUNGS: Crackles noted bilaterally more so at the right base. Symmetrical chest expansion. CVS: Irregular rhythm, no S3 gallop. ABDOMEN: No hepatosplenomegaly, normal bowel sounds, no guarding or rigidity. SPINE: No scoliosis or deformity SKIN: No rashes CENTRAL NERVOUS SYSTEM: Opens eyes, but does not follow any instructions, on minimal dose of propofol Psychiatric: Could not assess. EXTREMITIES: No clubbing, edema or cyanosis - Labs CBC & Chem 7: 01/25/20 04:15 01/25/20 04:15 Labs: Abnormal Lab Results - Last 24 Hours (Table) 01/24/20 01/25/20 01/25/20 Range/Units 17:33 00:43 04:15 RBC 2.11 L (3.80-5.40) m/uL Hgb 6.4 L* (11.4-16.0) gm/dL Hct 20.6 L (34.0-46.0) % MCHC 30.9 L (31.0-37.0) g/dL RDW 16.5 H (11.5-15.5) % Plt Count 107 L (150-450) k/uL Lymphocytes # 0.3 L (1.0-4.8) k/uL ABG HCO3 (21-25) mmol/L ABG Total CO2 (19-24) mmol/L ABG O2 Saturation (94-97) % Chloride (98-107) mmol/L BUN (7-17) mg/dL Glucose (74-99) mg/dL POC Glucose (mg/dL) 160 H 194 H (75-99) mg/dL Calcium (8.4-10.2) mg/dL Total Protein (6.3-8.2) g/dL Albumin (3.5-5.0) g/dL 01/25/20 01/25/20 01/25/20 Range/Units 04:15 05:46 06:13 RBC (3.80-5.40) m/uL Hgb (11.4-16.0) gm/dL Hct (34.0-46.0) % MCHC (31.0-37.0) g/dL RDW (11.5-15.5) % Plt Count (150-450) k/uL Lymphocytes # (1.0-4.8) k/uL ABG HCO3 27 H (21-25) mmol/L ABG Total CO2 28 H (19-24) mmol/L ABG O2 Saturation 98.7 H (94-97) % Chloride 117 H (98-107) mmol/L BUN 60 H (7-17) mg/dL Glucose 196 H (74-99) mg/dL POC Glucose (mg/dL) 208 H (75-99) mg/dL Calcium 7.9 L (8.4-10.2) mg/dL Total Protein 3.8 L (6.3-8.2) g/dL Albumin 1.7 L (3.5-5.0) g/dL 01/25/20 Range/Units 11:13 RBC (3.80-5.40) m/uL Hgb (11.4-16.0) gm/dL Hct (34.0-46.0) % MCHC (31.0-37.0) g/dL RDW (11.5-15.5) % Plt Count (150-450) k/uL Lymphocytes # (1.0-4.8) k/uL ABG HCO3 (21-25) mmol/L ABG Total CO2 (19-24) mmol/L ABG O2 Saturation (94-97) % Chloride (98-107) mmol/L BUN (7-17) mg/dL Glucose (74-99) mg/dL POC Glucose (mg/dL) 173 H (75-99) mg/dL Calcium (8.4-10.2) mg/dL Total Protein (6.3-8.2) g/dL Albumin (3.5-5.0) g/dL Assessment and Plan Assessment: Impression: Acute hypoxic respiratory failure with bilateral pneumonia and ARDS. secondary to Covid 19 pneumonitis. Acute right sided pulmonary embolism and hypercoagulability secondary to jane virus infection. Recurrent atrial fibrillation, maintained on amiodarone. And on anticoagul ations therapy. On Lovenox. Remote history of deep vein thrombosis patient has been on Xarelto on outpatient basis. Acute kidney injury. Elevated d-dimer. Hypercoagulable state. Hypernatremia secondary to free water deficit. Suspect acute toxic metabolic encephalopathy, could also be related to her Covid 19 infection. Recommendation: Continue ventilatory support., Placed back on PEEP of 10 and FiO2 is 55% today. Maintained on minimal amount of sedation if possible.. Continue nutritional support. Continue anticoagulation therapy./Lovenox , considering the losing and the drop in hemoglobin, I recommended we cut down the dose of Lovenox to 60 mg twice a day is that of 80 twice a day. Continue Covid 19 cocktail treatment. Continue amiodarone. Orally. Continue GI prophylaxis. Not quite ready for weaning or extubation, updated her over the phone on her condition. Remains critically ill. Critical care time is over 30 minutes. Time with Patient: Greater than 30
--- NOTE | 2020-01-25 14:43 | P.PN ---
Subjective Progress Note Date: 01/25/20 Principal diagnosis: shortness of breath Patient is a 79-year-old female history of DVT who presented to the emergency department with complaints of shortness of breath. She initially had a DVT and stopped her Xarelto as she was concerned about an interaction with the azithromycin she had been prescribed due to COVID 19. In the ER she underwent an extensive evaluation. She is on have a pulmonary embolism was started on a heparin drip, she was found have Covid 19 pneumonia and was started on steroids, zinc, vitamin C, and melatonin. Pulmonary was consulted. She was admitted to the selective care unit. She was found to be in atrial fibrillation which was new onset. Cardiology was consulted. She was started on low-dose metoprolol. On the evening of 01/09 she went and A. fib with RVR was started on Cardizem drip. On the morning of 01/10 she was seen by cardiology Cardizem drip was discontinued and she was started on metoprolol 25 mg twice a day. Her oxygen requirements were increasing throughout her hospital stay. Pulmonary determined she was not a candidate for aggressive ears are Covid symptoms that started 2 weeks prior. Case had been discussed with vascular who felt she was not a candidate for catheter directed TPA/EKOS. On 01/11 she was seen by pulmonary and started on Remedesivir. She was transferred to the ICU overnight on 01/11 d ue to progressive hypoxemia. She required aerosol as well as a nonrebreather. By the morning of 01/14 she had received 2 units of convalescent plasma. On the morning of 01/15 she was requiring BiPAP. She had a triple-lumen catheter placed. She failed BiPAP therapy and was subsequently intubated overnight on 01/15. After intubation she again went into A. fib with RVR and required a Cardizem drip for a short time but then converted to normal sinus rhythm. She did require levothyroxine secondary to hypotension. She again went into A. fib with RVR on 01/17 and secondary to her hypotension she was started on amiodarone. Levophed weaned off by 01/18 and she was able to be switched to oral amiodarone. During her ICU stay her heparin drip was transitioned to Lovenox subcutaneous. She still has not been able to wean from the ventilator. PEEP decreased 01/21. She has following commands but very weak on 01/22. On 01/23 her sedation was stopped and she did become agitated requiring resedation. Her HgB droppe for unknown reason on 01/24 and was felt to maybe be due to leaking from her around her subclavian cath. Patient seen and examined at bedside. No acute events over night. General: Ill-appearing, no distress, appears at stated age Derm: warm, dry Head: atraumatic, normocephalic, symmetric Eyes: EOMI, no lid lag, anicteric sclera Mouth: no lip lesion, mucus membranes moist Cardiovascular: S1S2 reg, no murmur, positive posterior tibial pulse bilateral, Lungs: Coarse breath sounds bilateral, no rhonchi, no rales, no accessory muscle use Abdominal: soft, nontender to palpation, no guarding, no appreciable organomegaly Ext: no gross muscle atrophy, diffuse anasarca, no contractures Neuro: No gross muscle atrophy, no tremors noted Psych: lethargic but open eyes Covid 19 pneumonia with acute hypoxic respiratory failure, ARDS - Completed Remdesivir on 01/15 - Dexamethasone day #16 - Status post convalescent plasma 01/14 - Pulmonary recommendations completed - Continue zinc, vitamin C, vitamin D, Pepcid, and melatonin Anemia, undetermined cause - 1 unit pRBC - stools is brown continue to follow - suspect due to slow leak from TLC site. - Home AM dose of lovenox. DIffuse Anasarca - Lasix X 1 given 01/22. Unable to give today due to low BP Pulmonary embolus without right ventricular strain, history of prior DVT - Lovenox P. A fib with RVR - lovenox, amio - now in NSR Entercoccus and E coli UTI - cefepime and Unasyn D #4 Thrombocytopenia KALYAN due to ATN with resultant metabolic acidosis and hyperphosphatemia, resolved Septic shock, resolved Hypokalemia, resolved DVT prophylaxis: Lovenox for PE Discussed with: Nursing Anticipated discharge: undetermined Anticipated discharge place: undetermined A total of 25 minutes was spent on the care of this complex patient more than 50% of the time was spent in counseling and care coordination. Objective - Vital Signs Vital signs: Vital Signs Temp 98.4 F 01/25/20 12:00 Pulse 80 01/25/20 14:00 Resp 21 01/25/20 14:00 BP 126/65 01/25/20 11:00 Pulse Ox 95 01/25/20 14:00 Intake & Output 01/24/20 01/25/20 01/25/20 18:59 06:59 18:59 Intake Total 2676 2568 1854 Output Total 1495 1111 1125 Balance 1181 1457 729 Weight 84 kg Intake: IV 1256 1353 904 .9 @ KVO 20 20 80 Ampicillin-Sulbactam 3 gm 100 In Sodium Chloride 0.9% 100 ml @ 200 mls/hr IVPB Q6HR [facility] Rx#:[id number] Cefepime 2 gm In Sodium 100 Chloride 0.9% 100 ml @ 25 mls/hr IVPB Q12HR [facility] Rx #:[id number] Dextrose 5% in Water 1, 1200 1100 800 000 ml @ 100 mls/hr IV . Q10H [facility] Rx#:[id number] pressure bags 36 33 24 Intake, IV Titration 50 Amount Clevidipine Butyrate 25 50 mg In Empty Bag 1 bag @ 1 MG/HR 2 mls/hr IV .Q24H [facility] Rx#:[id number] Tube Feeding 770 715 550 Other 600 500 400 Output: Urine 1495 1110 1125 Stool 1 Other: Voiding Method Indwelling Catheter Indwelling Catheter Indwelling Catheter # Bowel Movements 1 ABP, PAP, CO, CI - Last Documented Arterial Blood Pressure 97/56 - Labs CBC & Chem 7: 01/25/20 04:15 01/25/20 04:15 Labs: Abnormal Lab Results - Last 24 Hours (Table) 01/24/20 01/25/20 01/25/20 Range/Units 17:33 00:43 04:15 RBC 2.11 L (3.80-5.40) m/uL Hgb 6.4 L* (11.4-16.0) gm/dL Hct 20.6 L (34.0-46.0) % MCHC 30.9 L (31.0-37.0) g/dL RDW 16.5 H (11.5-15.5) % Plt Count 107 L (150-450) k/uL Lymphocytes # 0.3 L (1.0-4.8) k/uL ABG HCO3 (21-25) mmol/L ABG Total CO2 (19-24) mmol/L ABG O2 Saturation (94-97) % Chloride (98-107) mmol/L BUN (7-17) mg/dL Glucose (74-99) mg/dL POC Glucose (mg/dL) 160 H 194 H (75-99) mg/dL Calcium (8.4-10.2) mg/dL Total Protein (6.3-8.2) g/dL Albumin (3.5-5.0) g/dL Crossmatch 01/25/20 01/25/20 01/25/20 Range/Units 04:15 05:46 06:13 RBC (3.80-5.40) m/uL Hgb (11.4-16.0) gm/dL Hct (34.0-46.0) % MCHC (31.0-37.0) g/dL RDW (11.5-15.5) % Plt Count (150-450) k/uL Lymphocytes # (1.0-4.8) k/uL ABG HCO3 27 H (21-25) mmol/L ABG Total CO2 28 H (19-24) mmol/L ABG O2 Saturation 98.7 H (94-97) % Chloride 117 H (98-107) mmol/L BUN 60 H (7-17) mg/dL Glucose 196 H (74-99) mg/dL POC Glucose (mg/dL) 208 H (75-99) mg/dL Calcium 7.9 L (8.4-10.2) mg/dL Total Protein 3.8 L (6.3-8.2) g/dL Albumin 1.7 L (3.5-5.0) g/dL Crossmatch 01/25/20 01/25/20 Range/Units 08:15 11:13 RBC (3.80-5.40) m/uL Hgb (11.4-16.0) gm/dL Hct (34.0-46.0) % MCHC (31.0-37.0) g/dL RDW (11.5-15.5) % Plt Count (150-450) k/uL Lymphocytes # (1.0-4.8) k/uL ABG HCO3 (21-25) mmol/L ABG Total CO2 (19-24) mmol/L ABG O2 Saturation (94-97) % Chloride (98-107) mmol/L BUN (7-17) mg/dL Glucose (74-99) mg/dL POC Glucose (mg/dL) 173 H (75-99) mg/dL Calcium (8.4-10.2) mg/dL Total Protein (6.3-8.2) g/dL Albumin (3.5-5.0) g/dL Crossmatch See Detail
[2020-01-25] MEDS: NOREPINEPHRINE 8 MG in SODIUM CHLORIDE 0.9% 250 ML IV SCH (16:23)
[2020-01-25 17:52] LABS: Glucose,Whole Blood 141 mg/dL (75-99)
[2020-01-25] MEDS: dexAMETHasone 2 MG TAB PO SCH (20:51)
[2020-01-25] MEDS: MELATONIN 5 MG TABLET PO SCH (20:51)
[2020-01-25] MEDS: INSULIN DETEMIR (LEVEMIR) 100 UNIT/ML SYR SQ SCH (20:52)
[2020-01-25] MEDS: polyethylene glycoL 3350 17 GM POWD.PACK PO SCH (20:52)
[2020-01-25] MEDS: ENOXAPARIN 60 MG/0.6 ML SYRINGE SQ SCH (21:02)
[2020-01-25 23:31] LABS: Glucose,Whole Blood 171 mg/dL (75-99)
[2020-01-26] MEDS: DEXTROSE 5% IN WATER 1,000 ML IV SCH ×2 (02:50→07:10)
[2020-01-26 04:26] LABS: Basophils % (A) 0 %; Eosinophils % (A) 0 %; HCT 25.1 % (34.0-46.0); Hypochromasia Slight; Lymphocytes # (A) 0.5 k/uL (1.0-4.8); Lymphocytes % (A) 5 %; MCH 30.3 pg (25.0-35.0); MCHC 31.9 g/dL (31.0-37.0); MCV 94.9 fL (80.0-100.0); Mean Platelet Volume 10.6; Monocytes # (A) 0.2 k/uL (0-1.0); Monocytes % (A) 2 %; Neutrophils # (A) 9.1 k/uL (1.3-7.7); Neutrophils % (A) 93 %; Platelet Count 110 k/uL (150-450); RBC 2.64 m/uL (3.80-5.40); WBC 9.8 k/uL (3.8-10.6)
[2020-01-26 04:42] LABS: ALT 16 U/L (4-34); AST 22 U/L (14-36); African American GFR (CKD) >90 (>60 ml/min/1.73 sqM); Albumin 1.9 g/dL (3.5-5.0); Alkaline Phosphatase 52 U/L (38-126); Anion Gap -1 mmol/L; Blood Urea Nitrogen 53 mg/dL (7-17); C Reactive Protein 7.8 mg/L (<10.0); Carbon Dioxide 26 mmol/L (22-30); Chloride 111 mmol/L (98-107); Glucose 186 mg/dL (74-99); LDH 1143 U/L (313-618); Non-African American GFR(CKD) 88 (>60 ml/min/1.73 sqM); Phosphorus 2.5 mg/dL (2.5-4.5); Potassium 4.1 mmol/L (3.5-5.1); Sodium 136 mmol/L (137-145); Total Bilirubin 0.6 mg/dL (0.2-1.3); Total Protein 4.2 g/dL (6.3-8.2)
[2020-01-26 05:21] LABS: ABG Base Excess 1.3 mmol/L; ABG HCO3 25 mmol/L (21-25); ABG Oxygen Saturation 99.6 % (94-97); ABG PCO2 37 mmHg (35-45); ABG PH 7.45 (7.35-7.45); ABG PO2 99 mmHg (83-108); ABG TCO2 27 mmol/L (19-24); Allen Test Performed? Yes
[2020-01-26 06:09] LABS: Glucose,Whole Blood 196 mg/dL (75-99)
[2020-01-26] MEDS: INSULIN ASPART (NovoLOG) 100 UNIT/ML VIAL SQ SCH ×4 (06:27→23:51)
[2020-01-26] MEDS: AMPICILLIN-SULBACTAM 3 GM in SODIUM CHLORIDE 0.9% 100 ML IVPB SCH (06:27)
--- NOTE | 2020-01-26 07:21 | XR ---
EXAMINATION TYPE: XR chest 1V DATE OF EXAM: 01/26/2020 COMPARISON: 01/25/2020 HISTORY: 79-year-old female intubated TECHNIQUE: Single frontal view of the chest is obtained. FINDINGS: ET tube tip approximately 2.0 cm from the ollie. NG tube courses below the diaphragm. Left-sided yanira st tube is visualized. Right-sided CVC tip in the upper right atrium. Heart upper limits of normal in size. Trace effusions may be present. Bilateral airspace disease has become less confluent in the in terval. Degenerative change of both shoulders. IMPRESSION: Bilateral airspace disease is improving, less confluent than on prior exam.
[2020-01-26] MEDS: ALBUTEROL HFA INHALER INHALATION SCH ×4 (07:23→20:59)
[2020-01-26] MEDS: FAMOTIDINE 20 MG TAB PO SCH (09:04)
[2020-01-26] MEDS: CHOLECALCIFEROL 1,000 UNIT TAB PO SCH (09:04)
[2020-01-26] MEDS: ASCORBIC ACID 500 MG TAB PO SCH (09:04)
[2020-01-26] MEDS: ENOXAPARIN 60 MG/0.6 ML SYRINGE SQ SCH ×2 (09:04→20:27)
[2020-01-26] MEDS: AMIODARONE 200 MG TAB PO SCH ×2 (09:05→20:27)
[2020-01-26] MEDS: METOPROLOL TARTRATE 50 MG TAB PO SCH ×2 (09:05→20:28)
[2020-01-26] MEDS: CEFEPIME 2 GM in SODIUM CHLORIDE 0.9% 100 ML IVPB SCH (09:05)
[2020-01-26] MEDS: ZINC SULFATE 220 MG CAP PO SCH (09:05)
[2020-01-26] MEDS: CHLORHEXIDINE GLUCONATE 15 ML CUP MUCOUS MEM SCH ×2 (09:06→20:27)
[2020-01-26] MEDS ORDERED: FUROSEMIDE 10 MG/ML 4 ML VIAL IV STA (09:54)
[2020-01-26] MEDS: CLEVIDIPINE BUTYRATE 25 MG in EMPTY BAG 1 BAG IV SCH ×2 (10:29→11:45)
[2020-01-26 11:36] LABS: Ferritin 404.9 ng/mL (10.0-291.0)
[2020-01-26 12:19] LABS: Glucose,Whole Blood 123 mg/dL (75-99)
--- NOTE | 2020-01-26 14:46 | P.PN ---
Subjective Progress Note Date: 01/26/20 Principal diagnosis: COVID 19 pneumonia This is 79-year-old white female patient who was admitted to the hospital on 01/09/2020 with COVID 19 pneumonia, and the chest x-ray showing diffuse bilateral pulmonary infiltrates. In addition CT angios of the chest showed pulmonary embolism involving mainly the right sided pulmonary artery branches. Patient continued to worsen on supportive medical treatment, and it went on to be intubated on 01/16/2020. Today on 01/26/2020 she remains intubated and sedated, on assist-control mode of ventilation with a rate of 20, tidal volume 450, FiO2 of 50% and PEEP of 10, this morning his blood gases showed a pO2 of 99, pCO2 40, and pH of 7.45, this was done on the above-mentioned blood gases, and the PEEP will be dropped down to 5, IV 0.9 normal saline at 10 ML per hour, Diprivan and is currently at 10 mics per kilo per minute, and vital high protein is 4 nutritional support at a rate of 55 with a goal of 55. Patient has been having awakening trials on the daily basis, however she is usually very hypertensive and tachycardic during the sedation holidays, and intermittently required clevidipine for blood pressure management. Patient has completed her Remdesivir on 01/16/2020, and she was given 1 unit of convalescent plasma on 01/14/2020. She remains on Lovenox, currently at 60 mg every 12 hours and the dose wet To be adjusted yesterday in view of some bleeding from the right subclavian triple-lumen insertion site, and there was a drop in hemoglobin to 6.4 requiring transfusion with 1 unit of packed red blood cell, she continues on IV steroids will be discontinued. Objective - Vital Signs Vital signs: Vital Signs Temp 97.7 F 01/26/20 08:00 Pulse 52 L 01/26/20 11:00 Resp 20 01/26/20 11:00 BP 88/60 01/25/20 20:00 Pulse Ox 97 01/26/20 11:00 Intake & Output 01/25/20 01/26/20 01/26/20 18:59 06:59 18:59 Intake Total 3036 2721 903.050 Output Total 1745 1395 550 Balance 1291 1326 353.050 Weight 85.5 kg 85.5 kg Intake: IV 1356 1306 465 .9 @ KVO 120 70 50 Dextrose 5% in Water 1, 1200 1200 400 000 ml @ 100 mls/hr IV . Q10H [facility] Rx#:[id number] pressure bags 36 36 15 Intake, IV Titration 100 63.050 Amount Clevidipine Butyrate 25 5.000 mg In Empty Bag 1 bag @ 1 MG/HR 2 mls/hr IV .Q24H [facility] Rx#:[id number] propofoL 1,000 mg In 100 58.050 Empty Bag 1 bag @ Titrate IV .Q0M [facility] Rx#: [id number] Tube Feeding 770 715 275 Blood Product 310 Rc As-1 Unit 0 [id number] Other 600 600 100 Output: Urine 1745 995 550 Stool 400 Other: Voiding Method Indwelling Catheter Indwelling Catheter Indwelling Catheter ABP, PAP, CO, CI - Last Documented Arterial Blood Pressure 99/52 - Exam GENERAL EXAM: Sedated, intubated, 79-year-old comfortable, on assist control mode of ventilation with the FiO2 of 50%, and PEEP of 10 in no apparent dist ress. HEAD: Normocephalic/atraumatic. EYES: Normal reaction of pupils, equal size. Conjunctiva pink, sclera white. NOSE: Clear with pink turbinates. THROAT: No erythema or exudates. NECK: No masses, no JVD, no thyroid enlargement, no adenopathy. CHEST: No chest wall deformity. Symmetrical expansion. LUNGS: Equal air entry with no crackles, wheeze, rhonchi or dullness. CVS: Irregular rate and rhythm, normal S1 and S2, no gallops, no murmurs, no rubs ABDOMEN: Soft, nontender. No hepatosplenomegaly, normal bowel sounds, no guarding or rigidity. EXTREMITIES: No clubbing, no edema, no cyanosis, 2+ pulses and upper and lower extremities. MUSCULOSKELETAL: Muscle strength and tone normal. SPINE: No scoliosis or deformity SKIN: No rashes CENTRAL NERVOUS SYSTEM: Sedated No focal deficits, tone is normal in all 4 extremities. - Labs CBC & Chem 7: 01/26/20 04:00 01/26/20 04:00 Labs: Abnormal Lab Results - Last 24 Hours (Table) 01/25/20 01/25/20 01/25/20 Range/Units 08:15 17:50 23:29 RBC (3.80-5.40) m/uL Hgb (11.4-16.0) gm/dL Hct (34.0-46.0) % RDW (11.5-15.5) % Plt Count (150-450) k/uL Neutrophils # (1.3-7.7) k/uL Lymphocytes # (1.0-4.8) k/uL D-Dimer (<0.60) mg/L FEU ABG Total CO2 (19-24) mmol/L ABG O2 Saturation (94-97) % Sodium (137-145) mmol/L Chloride (98-107) mmol/L BUN (7-17) mg/dL Glucose (74-99) mg/dL POC Glucose (mg/dL) 141 H 171 H (75-99) mg/dL Calcium (8.4-10.2) mg/dL Ferritin (10.0-291.0) ng/mL Lactate Dehydrogenase (313-618) U/L Total Protein (6.3-8.2) g/dL Albumin (3.5-5.0) g/dL Crossmatch See Detail 01/26/20 01/26/20 01/26/20 Range/Units 04:00 04:00 04:30 RBC 2.64 L (3.80-5.40) m/uL Hgb 8.0 L D (11.4-16.0) gm/dL Hct 25.1 L (34.0-46.0) % RDW 16.0 H (11.5-15.5) % Plt Count 110 L (150-450) k/uL Neutrophils # 9.1 H (1.3-7.7) k/uL Lymphocytes # 0.5 L (1.0-4.8) k/uL D-Dimer 3.04 H (<0.60) mg/L FEU ABG Total CO2 (19-24) mmol/L ABG O2 Saturation (94-97) % Sodium 136 L (137-145) mmol/L Chloride 111 H (98-107) mmol/L BUN 53 H (7-17) mg/dL Glucose 186 H (74-99) mg/dL POC Glucose (mg/dL) (75-99) mg/dL Calcium 8.0 L (8.4-10.2) mg/dL Ferritin 404.9 H (10.0-291.0) ng/mL Lactate Dehydrogenase 1143 H (313-618) U/L Total Protein 4.2 L (6.3-8.2) g/dL Albumin 1.9 L (3.5-5.0) g/dL Crossmatch 01/26/20 01/26/20 01/26/20 Range/Units 05:10 06:07 12:18 RBC (3.80-5.40) m/uL Hgb (11.4-16.0) gm/dL Hct (34.0-46.0) % RDW (11.5-15.5) % Plt Count (150-450) k/uL Neutrophils # (1.3-7.7) k/uL Lymphocytes # (1.0-4.8) k/uL D-Dimer (<0.60) mg/L FEU ABG Total CO2 27 H (19-24) mmol/L ABG O2 Saturation 99.6 H (94-97) % Sodium (137-145) mmol/L Chloride (98-107) mmol/L BUN (7-17) mg/dL Glucose (74-99) mg/dL POC Glucose (mg/dL) 196 H 123 H (75-99) mg/dL Calcium (8.4-10.2) mg/dL Ferritin (10.0-291.0) ng/mL Lactate Dehydrogenase (313-618) U/L Total Protein (6.3-8.2) g/dL Albumin (3.5-5.0) g/dL Crossmatch Assessment and Plan Plan: Assessment: #1. Acute hypoxic rest or a failure with bilateral pneumonia and ARDS secondary to COVID 19 pneumonitis, completed course of her Remdesivir on 01/16/2020, re ceived 1 unit of convalescent plasma on 01/13/2020, intubated on 01/16/2020 #2. Acute right-sided pulmonary embolism and hypercoagulability secondary to COVID 19 infection, currently on Lovenox at 60 mg twice daily #3. Acute blood loss anemia related to bleeding from the triple lumen insertion site, requiring transfusion with 1 unit of PRBC on 01/26/2020, and a dose of Lovenox was adjusted #4. Recurrent atrial fibrillation, maintained on amiodarone, with the on Lovenox #5. Remote history of DVTs, and patient was on the Route on an outpatient basis #6. Acute kidney injury #7. Elevated d-dimer related to COVID 19 infection, and pulmonary embolism #8. Hypercoagulable state #9. Hypernatremia secondary to free water deficit, improved #10. Suspect acute toxic metabolic encephalopathy related to COVID 19 infection #11. Acute urinary tract infection with urine cultures positive for E. coli and Enterococcus faecalis, currently on cefepime Plan: Proceed with the daily awakening trial and spontaneous breathing trial with pressure support of 5, and CPAP of 5, if becomes hypertensive main management with the clevidipine drip. We will discontinue the IV steroids, IV fluids have been discontinued, transfused with 1 unit of PRBC, one dose of Lasix will be given, continue nutritional support, which antibiotic coverage from cefepime and Unasyn to Levaquin. Continue same dose Lovenox, continue Pepcid. Continue the COVID 19 cocktail. We'll continue to follow I performed a history & physical examination of the patient and discussed their management with my nurse practitioner, Maria T Rushing. I reviewed the nurse practitioner's note and agree with the documented findings and plan of care. Lung sounds are positive for diminished breath sounds. The findings and the impression was discussed with the patient. I attest to the documentation by the nurse practitioner. Time with Patient: Greater than 30
[2020-01-26] MEDS: NOREPINEPHRINE 8 MG in SODIUM CHLORIDE 0.9% 250 ML IV SCH (14:56)
--- NOTE | 2020-01-26 14:58 | P.PN ---
Subjective Progress Note Date: 01/26/20 (delayed charting seen at 0800) Principal diagnosis: shortness of breath Patient is a 79-year-old female history of DVT who presented to the emergency department with complaints of shortness of breath. She initially had a DVT and stopped her Xarelto as she was concerned about an interaction with the azithromycin she had been prescribed due to COVID 19. In the ER she underwent an extensive evaluation. She is on have a pulmonary embolism was started on a heparin drip, she was found have Covid 19 pneumonia and was started on steroids, zinc, vitamin C, and melatonin. Pulmonary was consulted. She was admitted to the selective care unit. She was found to be in atrial fibrillation which was new onset. Cardiology was consulted. She was started on low-dose metoprolol. On the evening of 01/09 she went and A. fib with RVR was started on Cardizem drip. On the morning of 01/10 she was seen by cardiology Cardizem drip was discontinued and she was started on metoprolol 25 mg twice a day. Her oxygen requirements were increasing throughout her hospital stay. Pulmonary determined she was not a candidate for aggressive ears are Covid symptoms that started 2 w eeks prior. Case had been discussed with vascular who felt she was not a candidate for catheter directed TPA/EKOS. On 01/11 she was seen by pulmonary and started on Remedesivir. She was transferred to the ICU overnight on 01/11 due to progressive hypoxemia. She required aerosol as well as a nonrebreather. By the morning of 01/14 she had received 2 units of convalescent plasma. On the morning of 01/15 she was requiring BiPAP. She had a triple-lumen catheter placed. She failed BiPAP therapy and was subsequently intubated overnight on 01/15. After intubation she again went into A. fib with RVR and required a Cardizem drip for a short time but then converted to normal sinus rhythm. She did require levothyroxine secondary to hypotension. She again went into A. fib with RVR on 01/17 and secondary to her hypotension she was started on amiodarone. Levophed weaned off by 01/18 and she was able to be switched to oral amiodarone. During her ICU stay her heparin drip was transitioned to Lovenox subcutaneous. She still has not been able to wean from the ventilator. PEEP decreased 01/21. She has following commands but very weak on 01/22. On 01/23 her sedation was stopped and she did become agitated requiring resedation. Her HgB dropped for unknown reason on 01/24 and was felt to maybe be due to leaking from her around her subclavian cath. She was given 1 unit pRBC. Attempted to wean sedation but she became agitated. Patient seen and examined at bedside. No acute events over night. General: Ill-appearing, no distress, appears at stated age Derm: warm, dry, bleeding from subclavian director of operations: atraumatic, normocephalic, symmetric Eyes: EOMI, no lid lag, anicteric sclera Mouth: no lip lesion, mucus membranes moist Cardiovascular: S1S2 reg, no murmur, positive posterior tibial pulse bilateral, Lungs: Coarse breath sounds bilateral, no rhonchi, no rales, no accessory muscle use Abdominal: soft, nontender to palpation, no guarding, no appreciable organomegaly Ext: no gross muscle atrophy, diffuse anasarca, no contractures Neuro: No gross muscle atrophy, no tremors noted, moving right fingers and right toes Psych: lethargic but open eyes Covid 19 pneumonia with acute hypoxic respiratory failure, ARDS - Completed Remdesivir on 01/15 - Dexamethasone day #17., will leave up to pulm when to discontinue - Status post convalescent plasma 01/14 - Pulmonary recommendations completed - Continue zinc, vitamin C, vitamin D, Pepcid, and melatonin - repeat COVID testing for trach and peg Anemia, undetermined cause, thrombocytopenia, likely reactive - 1 unit pRBC 01/25/2020 - stools is brown continue to follow - suspect due to slow leak from TLC site. - Lovenox. dose adjusted by pulm for bleeding DIffuse Anasarca - Lasix X 1 given 01/22, repeat again today Pulmonary embolus without right ventricular strain, history of prior DVT - Lovenox P. A fib with RVR - lovenox, amio - now in NSR Entercoccus and E coli UTI - cefepime and Unasyn D #5/ Thrombocytopenia KALYAN due to ATN with resultant metabolic acidosis and hyperphosphatemia, resolved Septic shock, resolved Hypokalemia, resolved DVT prophylaxis: Lovenox for PE Discussed with: Nursing Anticipated discharge: undetermined Anticipated discharge place: undetermined A total of 25 minutes was spent on the care of this complex patient more than 50% of the time was spent in counseling and care coordination. Objective - Vital Signs Vital signs: Vital Signs Temp 98.2 F 01/26/20 12:00 Pulse 64 01/26/20 14:00 Resp 26 H 01/26/20 14:00 BP 88/60 01/25/20 20:00 Pulse Ox 95 01/26/20 14:00 Intake & Output 01/25/20 01/26/20 01/26/20 18:59 06:59 18:59 Intake Total 3036 2721 903.050 Output Total 1745 1395 550 Balance 1291 1326 353.050 Weight 85.5 kg 85.5 kg Intake: IV 1356 1306 465 .9 @ KVO 120 70 50 Dextrose 5% in Water 1, 1200 1200 400 000 ml @ 100 mls/hr IV . Q10H [facility] Rx#:[id number] pressure bags 36 36 15 Intake, IV Titration 100 63.050 Amount Clevidipine Butyrate 25 5.000 mg In Empty Bag 1 bag @ 1 MG/HR 2 mls/hr IV .Q24H [facility] Rx#:[id number] propofoL 1,000 mg In 100 58.050 Empty Bag 1 bag @ Titrate IV .Q0M [facility] Rx#: [id number] Tube Feeding 770 715 275 Blood Product 310 Rc As-1 Unit 0 [id number] Other 600 600 100 Output: Urine 1745 995 550 Stool 400 Other: Voiding Method Indwelling Catheter Indwelling Catheter Indwelling Catheter ABP, PAP, CO, CI - Last Documented Arterial Blood Pressure 121/56 - Labs CBC & Chem 7: 01/26/20 04:00 01/26/20 04:00 Labs: Abnormal Lab Results - Last 24 Hours (Table) 01/25/20 01/25/20 01/25/20 Range/Units 08:15 17:50 23:29 RBC (3.80-5.40) m/uL Hgb (11.4-16.0) gm/dL Hct (34.0-46.0) % RDW (11.5-15.5) % Plt Count (150-450) k/uL Neutrophils # (1.3-7.7) k/uL Lymphocytes # (1.0-4.8) k/uL D-Dimer (<0.60) mg/L FEU ABG Total CO2 (19-24) mmol/L ABG O2 Saturation (94-97) % Sodium (137-145) mmol/L Chloride (98-107) mmol/L BUN (7-17) mg/dL Glucose (74-99) mg/dL POC Glucose (mg/dL) 141 H 171 H (75-99) mg/dL Calcium (8.4-10.2) mg/dL Ferritin (10.0-291.0) ng/mL Lactate Dehydrogenase (313-618) U/L Total Protein (6.3-8.2) g/dL Albumin (3.5-5.0) g/dL Crossmatch See Detail 01/26/20 01/26/20 01/26/20 Range/Units 04:00 04:00 04:30 RBC 2.64 L (3.80-5.40) m/uL Hgb 8.0 L D (11.4-16.0) gm/dL Hct 25.1 L (34.0-46.0) % RDW 16.0 H (11.5-15.5) % Plt Count 110 L (150-450) k/uL Neutrophils # 9.1 H (1.3-7.7) k/uL Lymphocytes # 0.5 L (1.0-4.8) k/uL D-Dimer 3.04 H (<0.60) mg/L FEU ABG Total CO2 (19-24) mmol/L ABG O2 Saturation (94-97) % Sodium 136 L (137-145) mmol/L Chloride 111 H (98-107) mmol/L BUN 53 H (7-17) mg/dL Glucose 186 H (74-99) mg/dL POC Glucose (mg/dL) (75-99) mg/dL Calcium 8.0 L (8.4-10.2) mg/dL Ferritin 404.9 H (10.0-291.0) ng/mL Lactate Dehydrogenase 1143 H (313-618) U/L Total Protein 4.2 L (6.3-8.2) g/dL Albumin 1.9 L (3.5-5.0) g/dL Crossmatch 01/26/20 01/26/20 01/26/20 Range/Units 05:10 06:07 12:18 RBC (3.80-5.40) m/uL Hgb (11.4-16.0) gm/dL Hct (34.0-46.0) % RDW (11.5-15.5) % Plt Count (150-450) k/uL Neutrophils # (1.3-7.7) k/uL Lymphocytes # (1.0-4.8) k/uL D-Dimer (<0.60) mg/L FEU ABG Total CO2 27 H (19-24) mmol/L ABG O2 Saturation 99.6 H (94-97) % Sodium (137-145) mmol/L Chloride (98-107) mmol/L BUN (7-17) mg/dL Glucose (74-99) mg/dL POC Glucose (mg/dL) 196 H 123 H (75-99) mg/dL Calcium (8.4-10.2) mg/dL Ferritin (10.0-291.0) ng/mL Lactate Dehydrogenase (313-618) U/L Total Protein (6.3-8.2) g/dL Albumin (3.5-5.0) g/dL Crossmatch
[2020-01-26] MEDS: LEVOFLOXACIN 500MG-D5W PMX 500 MG in DEXTROSE/WATER 1 100ML.BAG IVPB SCH (17:23)
[2020-01-26 17:44] LABS: Glucose,Whole Blood 137 mg/dL (75-99)
[2020-01-26] MEDS: MELATONIN 5 MG TABLET PO SCH (20:27)
[2020-01-26 20:33] LABS: Glucose,Whole Blood 104 mg/dL (75-99)
[2020-01-26] MEDS ORDERED: INSULIN DETEMIR (LEVEMIR) 100 UNIT/ML SYR SQ SCH (21:00)
[2020-01-26 23:49] LABS: Glucose,Whole Blood 131 mg/dL (75-99)
[2020-01-27 04:35] LABS: Anisocytosis Slight; Basophils % (A) 0 %; Eosinophils # (A) 0.3 k/uL (0-0.7); Eosinophils % (A) 3 %; HCT 22.6 % (34.0-46.0); HGB 7.5 gm/dL (11.4-16.0); Lymphocytes # (A) 1.1 k/uL (1.0-4.8); Lymphocytes % (A) 10 %; MCH 31.5 pg (25.0-35.0); MCHC 33.3 g/dL (31.0-37.0); MCV 94.7 fL (80.0-100.0); Mean Platelet Volume 9.8; Monocytes # (A) 0.3 k/uL (0-1.0); Monocytes % (A) 3 %; Neutrophils # (A) 8.8 k/uL (1.3-7.7); Neutrophils % (A) 84 %; Platelet Count 109 k/uL (150-450); RBC 2.38 m/uL (3.80-5.40); RDW 16.4 % (11.5-15.5); WBC 10.5 k/uL (3.8-10.6)
[2020-01-27 04:52] LABS: ALT 22 U/L (4-34); AST 28 U/L (14-36); African American GFR (CKD) >90 (>60 ml/min/1.73 sqM); Albumin 1.8 g/dL (3.5-5.0); Alkaline Phosphatase 54 U/L (38-126); Anion Gap -1 mmol/L; Blood Urea Nitrogen 49 mg/dL (7-17); Calcium 7.7 mg/dL (8.4-10.2); Carbon Dioxide 27 mmol/L (22-30); Chloride 109 mmol/L (98-107); Glucose 125 mg/dL (74-99); Non-African American GFR(CKD) 84 (>60 ml/min/1.73 sqM); Potassium 3.8 mmol/L (3.5-5.1); Sodium 135 mmol/L (137-145); Total Bilirubin 0.5 mg/dL (0.2-1.3)
[2020-01-27] MEDS ORDERED: Potassium Replacement Protocol 1 EACH MISC MISCELLANE PRN (04:54)
[2020-01-27] MEDS ORDERED: POTASSIUM BICARBONATE/CIT AC 20 MEQ TABLET.EFF NG-TUBE SCH (05:00)
[2020-01-27 05:21] LABS: Glucose,Whole Blood 133 mg/dL (75-99)
[2020-01-27 05:55] LABS: ABG Base Excess 4.1 mmol/L; ABG HCO3 27 mmol/L (21-25); ABG Oxygen Saturation 90.9 % (94-97); ABG PCO2 32 mmHg (35-45); ABG PH 7.53 (7.35-7.45); ABG TCO2 28 mmol/L (19-24); Allen Test Performed? Yes
[2020-01-27 05:56] LABS: ABG PO2 51 mmHg (83-108)
[2020-01-27] MEDS: INSULIN ASPART (NovoLOG) 100 UNIT/ML VIAL SQ SCH ×4 (06:09→23:50)
--- NOTE | 2020-01-27 07:34 | XR ---
EXAMINATION TYPE: XR chest 1V portable DATE OF EXAM: 01/27/2020 COMPARISON: 01/26/2020 HISTORY: Shortness of breath TECHNIQUE: Single frontal view of the chest is obtained. FINDINGS: Bilateral diffuse patchy infiltrates with pleural effusion stable. ET and NG tube stable. No pneumothorax. Atherosclerotic change aorta. IMPRESSION: Bilateral infiltrates are stable.
[2020-01-27] MEDS: ALBUTEROL HFA INHALER INHALATION SCH ×4 (07:58→22:00)
[2020-01-27] MEDS: ENOXAPARIN 60 MG/0.6 ML SYRINGE SQ SCH ×2 (09:03→19:38)
[2020-01-27] MEDS: CHLORHEXIDINE GLUCONATE 15 ML CUP MUCOUS MEM SCH ×2 (09:03→19:38)
[2020-01-27] MEDS: CHOLECALCIFEROL 1,000 UNIT TAB PO SCH (09:03)
[2020-01-27] MEDS: AMIODARONE 200 MG TAB PO SCH ×2 (09:03→19:38)
[2020-01-27] MEDS: FAMOTIDINE 20 MG TAB PO SCH (09:03)
[2020-01-27] MEDS: ASCORBIC ACID 500 MG TAB PO SCH (09:03)
[2020-01-27] MEDS: ZINC SULFATE 220 MG CAP PO SCH (09:04)
[2020-01-27] MEDS: METOPROLOL TARTRATE 50 MG TAB PO SCH ×2 (09:04→19:38)
--- NOTE | 2020-01-27 10:42 | P.PN ---
Subjective Progress Note Date: 01/27/20 Principal diagnosis: COVID 19 pneumonia This is 79-year-old white female patient who was admitted to the hospital on 01/09/2020 with COVID 19 pneumonia, and the chest x-ray showing diffuse bilateral pulmonary infiltrates. In addition CT angios of the chest showed pulmonary embolism involving mainly the right sided pulmonary artery branches. Patient continued to worsen on supportive medical treatment, and it went on to be intubated on 01/16/2020. Today on 01/26/2020 she remains intubated and sedated, on assist-control mode of ventilation with a rate of 20, tidal volume 450, FiO2 of 50% and PEEP of 10, this morning his blood gases showed a pO2 of 99, pCO2 40, and pH of 7.45, this was done on the above-mentioned blood gases, and the PEEP will be dropped down to 5, IV 0.9 normal saline at 10 ML per hour, Diprivan and is currently at 10 mics per kilo per minute, and vital high protein is 4 nutritional support at a rate of 55 with a goal of 55. Patient has been having awakening trials on the daily basis, however she is usually very hypertensive and tachycardic during the sedation holidays, and intermittently required clevidipine for blood pressure management. Patient has completed her Remdesivir on 01/16/2020, and she was given 1 unit of convalescent plasma on 01/14/2020. She remains on Lovenox, currently at 60 mg every 12 hours and the dose wet To be adjusted yesterday in view of some bleeding from the right subclavian triple-lumen insertion site, and there was a drop in hemoglobin to 6.4 requiring transfusion with 1 unit of packed red blood cell, she continues on IV steroids will be discontinued. On 01/27/2020 patient seen in follow-up in intensive care unit, she remains intubated, sedated on mechanical ventilator, with current vent settings of assist control mode of ventilation with a rate of 20, tidal on this 450, FiO2 of 50% and PEEP of 5, this morning his blood gases showed pO2 of 51, pCO2 of 32, and pH of 7.53. We will increase the PEEP to 10. Yesterday patient was given sedation holiday, and spontaneous breathing trial however she quickly failed spontaneous breathing trial, with signs of increased heart rate, increased respiratory rate and hypertension, requiring clevidipine infusion, today's chest x-ray shows bilateral infiltrates stable in appearance, vital signs have been stable, no vasoactive drips, she is in sinus mechanism, at times tachycardic especially during spontaneous awakening trials. She remains on anticoagulation currently on Lovenox 60 mg twice daily. Today's labs have been reviewed, sure what blood cell count of 10.5, hemoglobin of 7.5, platelet count is 109, sodium of 135, potassium 3.8, chloride is 109, B UN of 49, creatinine is 0.68. Patient is receiving nutrition in the form of vital high protein at 58 with a goal of 58. Objective - Vital Signs Vital signs: Vital Signs Temp 98.8 F 01/27/20 04:00 Pulse 65 01/27/20 07:00 Resp 26 H 01/27/20 07:00 BP 88/60 01/25/20 20:00 Pulse Ox 99 01/27/20 07:00 Intake & Output 01/26/20 01/27/20 01/27/20 18:59 06:59 18:59 Intake Total 5404.581 1259.973 76 Output Total 2300 1415 65 Balance -1085.950 253.973 11 Weight 85.5 kg 91.217 kg Intake: IV 556 211 18 .9 @ KVO 120 175 15 Dextrose 5% in Water 1, 400 000 ml @ 100 mls/hr IV . Q10H [facility] Rx#:[id number] pressure bags 36 36 3 Intake, IV Titration 63.050 164.973 Amount Clevidipine Butyrate 25 5.000 mg In Empty Bag 1 bag @ 1 MG/HR 2 mls/hr IV .Q24H [facility] Rx#:[id number] propofoL 1,000 mg In 58.050 164.973 Empty Bag 1 bag @ Titrate IV .Q0M [facility] Rx#: [id number] Tube Feeding 495 693 58 Other 100 600 Output: Urine 2300 1415 65 Other: Voiding Method Indwelling Catheter Indwelling Catheter ABP, PAP, CO, CI - Last Documented Arterial Blood Pressure 116/52 - Exam GENERAL EXAM: Sedated, intubated, 79-year-old comfortable, on assist control mode of ventilation with the FiO2 of 50%, and PEEP of 10 in no apparent distress. HEAD: Normocephalic/atraumatic. EYES: Normal reaction of pupils, equal size. Conjunctiva pink, sclera white. NOSE: Clear with pink turbinates. THROAT: No erythema or exudates. NECK: No masses, no JVD, no thyroid enlargement, no adenopathy. CHEST: No chest wall deformity. Symmetrical expansion. LUNGS: Equal air entry with no crackles, wheeze, rhonchi or dullness. CVS: Irregular rate and rhythm, normal S1 and S2, no gallops, no murmurs, no rubs ABDOMEN: Soft, nontender. No hepatosplenomegaly, normal bowel sounds, no guarding or rigidity. EXTREMITIES: No clubbing, no edema, no cyanosis, 2+ pulses and upper and lower extremities. MUSCULOSKELETAL: Muscle strength and tone normal. SPINE: No scoliosis or deformity SKIN: No rashes CENTRAL NERVOUS SYSTEM: Sedated No focal deficits, tone is normal in all 4 extr emities. - Labs CBC & Chem 7: 01/27/20 03:52 01/27/20 03:52 Labs: Abnormal Lab Results - Last 24 Hours (Table) 01/26/20 01/26/20 01/26/20 Range/Units 04:00 12:18 17:43 RBC (3.80-5.40) m/uL Hgb (11.4-16.0) gm/dL Hct (34.0-46.0) % RDW (11.5-15.5) % Plt Count (150-450) k/uL Neutrophils # (1.3-7.7) k/uL ABG pH (7.35-7.45) ABG pCO2 (35-45) mmHg ABG pO2 (83-108) mmHg ABG HCO3 (21-25) mmol/L ABG Total CO2 (19-24) mmol/L ABG O2 Saturation (94-97) % Sodium (137-145) mmol/L Chloride (98-107) mmol/L BUN (7-17) mg/dL Glucose (74-99) mg/dL POC Glucose (mg/dL) 123 H 137 H (75-99) mg/dL Calcium (8.4-10.2) mg/dL Ferritin 404.9 H (10.0-291.0) ng/mL Total Protein (6.3-8.2) g/dL Albumin (3.5-5.0) g/dL 01/26/20 01/26/20 01/27/20 Range/Units 20:32 23:48 03:52 RBC 2.38 L (3.80-5.40) m/uL Hgb 7.5 L (11.4-16.0) gm/dL Hct 22.6 L (34.0-46.0) % RDW 16.4 H (11.5-15.5) % Plt Count 109 L (150-450) k/uL Neutrophils # 8.8 H (1.3-7.7) k/uL ABG pH (7.35-7.45) ABG pCO2 (35-45) mmHg ABG pO2 (83-108) mmHg ABG HCO3 (21-25) mmol/L ABG Total CO2 (19-24) mmol/L ABG O2 Saturation (94-97) % Sodium (137-145) mmol/L Chloride (98-107) mmol/L BUN (7-17) mg/dL Glucose (74-99) mg/dL POC Glucose (mg/dL) 104 H 131 H (75-99) mg/dL Calcium (8.4-10.2) mg/dL Ferritin (10.0-291.0) ng/mL Total Protein (6.3-8.2) g/dL Albumin (3.5-5.0) g/dL 01/27/20 01/27/20 01/27/20 Range/Units 03:52 05:20 05:50 RBC (3.80-5.40) m/uL Hgb (11.4-16.0) gm/dL Hct (34.0-46.0) % RDW (11.5-15.5) % Plt Count (150-450) k/uL Neutrophils # (1.3-7.7) k/uL ABG pH 7.53 H (7.35-7.45) ABG pCO2 32 L (35-45) mmHg ABG pO2 51 L* (83-108) mmHg ABG HCO3 27 H (21-25) mmol/L ABG Total CO2 28 H (19-24) mmol/L ABG O2 Saturation 90.9 L (94-97) % Sodium 135 L (137-145) mmol/L Chloride 109 H (98-107) mmol/L BUN 49 H (7-17) mg/dL Glucose 125 H (74-99) mg/dL POC Glucose (mg/dL) 133 H (75-99) mg/dL Calcium 7.7 L (8.4-10.2) mg/dL Ferritin (10.0-291.0) ng/mL Total Protein 4.0 L (6.3-8.2) g/dL Albumin 1.8 L (3.5-5.0) g/dL Assessment and Plan Plan: Assessment: #1. Acute hypoxic rest or a failure with bilateral pneumonia and ARDS secondary to COVID 19 pneumonitis, completed course of her Remdesivir on 01/16/2020, received 1 unit of convalescent plasma on 01/13/2020, intubated on 01/16/2020 #2. Acute right-sided pulmonary embolism and hypercoagulability secondary to COVID 19 infection, currently on Lovenox at 60 mg twice daily #3. Acute blood loss anemia related to bleeding from the triple lumen insertion site, requiring transfusion with 1 unit of PRBC on 01/26/2020, and a dose of Lovenox was adjusted #4. Recurrent atrial fibrillation, maintained on amiodarone, with the on Lovenox #5. Remote history of DVTs, and patient was on the Route on an outpatient basis #6. Acute kidney injury #7. Elevated d-dimer related to COVID 19 infection, and pulmonary embolism #8. Hypercoagulable state #9. Hypernatremia secondary to free water deficit, improved #10. Suspect acute toxic metabolic encephalopathy related to COVID 19 infection #11. Acute urinary tract infection with urine cultures positive for E. coli and Enterococcus faecalis, currently on cefepime Plan: Continue current medical treatment, patient failed spontaneous awakening trial spontaneous breathing trial yesterday, not ready for any spontaneous breathing trials today, increase the PEEP back up to 10 as there is worsening in oxygenation on today's blood gas. Continue nutritional support,continue anticoagulation, and supportive treatment. Overall prognosis is quite guarded, patient's family needs to be updated and cold status needs to be addressed, will be happy to continue with supportive treatment however DO NOT RESUSCITATE status should be considered in view of severe critical illness, prolonged ventilator support. I performed a history & physical examination of the patient and discussed their management with my nurse practitioner, Maria T Rushing. I reviewed the nurse pr actitioner's note and agree with the documented findings and plan of care. Lung sounds are positive for diminished breath sounds. The findings and the impression was discussed with the patient. I attest to the documentation by the nurse practitioner. Time with Patient: Greater than 30
[2020-01-27 12:12] LABS: Glucose,Whole Blood 147 mg/dL (75-99)
[2020-01-27] MEDS: NOREPINEPHRINE 8 MG in SODIUM CHLORIDE 0.9% 250 ML IV SCH (12:16)
[2020-01-27] MEDS: LEVOFLOXACIN 500MG-D5W PMX 500 MG in DEXTROSE/WATER 1 100ML.BAG IVPB SCH (15:43)
[2020-01-27 16:34] LABS: LD Isoenzymes 1 26 % (19-38); LD Isoenzymes 2 36 % (30-43); LD Isoenzymes 3 16 % (16-26); LD Isoenzymes 4 9 % (3-12); LD Isoenzymes 5 13 % (3-14); Lactacte Dehydrogenase(LD) ISO 410 U/L (120-250)
[2020-01-27 16:34] LABS: LD Isoenzymes 1 26 % (19-38); LD Isoenzymes 2 35 % (30-43); LD Isoenzymes 3 17 % (16-26); LD Isoenzymes 4 10 % (3-12); LD Isoenzymes 5 12 % (3-14); Lactacte Dehydrogenase(LD) ISO 373 U/L (120-250)
[2020-01-27] MEDS ORDERED: SODIUM CHLORIDE 0.9% 500 ML 500 ML IV ONE (16:51)
[2020-01-27 17:11] LABS: Glucose,Whole Blood 131 mg/dL (75-99)
--- NOTE | 2020-01-27 17:35 | P.PN ---
Subjective Progress Note Date: 01/27/20 (delayed charting seen at 0845) Principal diagnosis: shortness of breath Patient is a 79-year-old female history of DVT who presented to the emergency department with complaints of shortness of breath. She initially had a DVT and stopped her Xarelto as she was concerned about an interaction with the azithromycin she had been prescribed due to COVID 19. In the ER she underwent an extensive evaluation. She is on have a pulmonary embolism was started on a heparin drip, she was found have Covid 19 pneumonia and was started on steroids, zinc, vitamin C, and melatonin. Pulmonary was consulted. She was admitted to the selective care unit. She was found to be in atrial fibrillation which was new onset. Cardiology was consulted. She was started on low-dose metoprolol. On the evening of 01/09 she went and A. fib with RVR was started on Cardizem drip. On the morning of 01/10 she was seen by cardiology Cardizem drip was discontinued and she was started on metoprolol 25 mg twice a day. Her oxygen requirements were increasing throughout her hospital stay. Pulmonary determined she was not a candidate for aggressive ears are Covid symptoms that started 2 w eeks prior. Case had been discussed with vascular who felt she was not a candidate for catheter directed TPA/EKOS. On 01/11 she was seen by pulmonary and started on Remedesivir. She was transferred to the ICU overnight on 01/11 due to progressive hypoxemia. She required aerosol as well as a nonrebreather. By the morning of 01/14 she had received 2 units of convalescent plasma. On the morning of 01/15 she was requiring BiPAP. She had a triple-lumen catheter placed. She failed BiPAP therapy and was subsequently intubated overnight on 01/15. After intubation she again went into A. fib with RVR and required a Cardizem drip for a short time but then converted to normal sinus rhythm. She did require levothyroxine secondary to hypotension. She again went into A. fib with RVR on 01/17 and secondary to her hypotension she was started on amiodarone. Levophed weaned off by 01/18 and she was able to be switched to oral amiodarone. During her ICU stay her heparin drip was transitioned to Lovenox subcutaneous. She still has not been able to wean from the ventilator. PEEP decreased 01/21. She has following commands but very weak on 01/22. On 01/23 her sedation was stopped and she did become agitated requiring resedation. Her HgB dropped for unknown reason on 01/24 and was felt to maybe be due to leaking from her around her subclavian cath. She was given 1 unit pRBC. Attempted to wean sedation but she became agitated. Patient seen and examined at bedside. No additional events overnight General: Ill-appearing, no distress, appears at stated age Derm: warm, dry, Head: atraumatic, normocephalic, symmetric Eyes: EOMI, no lid lag, anicteric sclera Mouth: no lip lesion, mucus membranes moist Cardiovascular: S1S2 reg, no murmur, positive posterior tibial pulse bilateral, Lungs: Coarse breath sounds bilateral, no rhonchi, no rales, no accessory muscle use Abdominal: soft, nontender to palpation, no guarding, no appreciable organomegaly Ext: no gross muscle atrophy, diffuse anasarca, no contractures Neuro: No gross muscle atrophy, no tremors noted, moving right fingers and bilateral right toes Psych: lethargic but open eyes Covid 19 pneumonia with acute hypoxic respiratory failure, ARDS - Completed Remdesivir on 01/15 - s/p Dexamethasone day #17 - Status post convalescent plasma 01/14 - Pulmonary recommendations completed - Continue zinc, vitamin C, vitamin D, Pepcid, and melatonin - repeat COVID testing for trach and peg Anemia, undetermined cause, thrombocytopenia, likely reactive - 1 unit pRBC 01/25/2020 - stools is brown continue to follow - suspect due to slow leak from TLC site. - Lovenox. dose adjusted by pulm for bleeding DIffuse Anasarca - Lasix X 1 given 01/22, repeated 01/25 Pulmonary embolus without right ventricular strain, history of prior DVT - Lovenox P. A fib with RVR - lovenox, amio - now in NSR Entercoccus and E coli UTI - Levaquin D # 6/7 of treatment Thrombocytopenia KALYAN due to ATN with resultant metabolic acidosis and hyperphosphatemia, resolved Septic shock, resolved Hypokalemia, resolved DVT prophylaxis: Lovenox for PE Discussed with: Nursing Anticipated discharge: undetermined Anticipated discharge place: undetermined A total of 25 minutes was spent on the care of this complex patient more than 50 % of the time was spent in counseling and care coordination. Objective - Vital Signs Vital signs: Vital Signs Temp 98.7 F 01/27/20 16:00 Pulse 71 01/27/20 16:00 Resp 22 01/27/20 16:00 BP 88/60 01/25/20 20:00 Pulse Ox 92 L 01/27/20 16:00 Intake & Output 01/26/20 01/27/20 01/27/20 18:59 06:59 18:59 Intake Total 7678.959 4060.973 1746.058 Output Total 2300 1415 835 Balance -1085.950 253.973 911.058 Weight 85.5 kg 91.217 kg Intake: IV 556 211 265 .9 @ KVO 120 175 135 Dextrose 5% in Water 1, 400 000 ml @ 100 mls/hr IV . Q10H [facility] Rx#:[id number] Levofloxacin 500Mg-D5w 100 Pmx 500 mg In Dextrose/ Water 1 100ml.bag @ 100 mls/hr IVPB Q24H [facility] Rx#: [id number] pressure bags 36 36 30 Intake, IV Titration 63.050 164.973 91.058 Amount Clevidipine Butyrate 25 5.000 mg In Empty Bag 1 bag @ 1 MG/HR 2 mls/hr IV .Q24H [facility] Rx#:[id number] propofoL 1,000 mg In 58.050 164.973 91.058 Empty Bag 1 bag @ Titrate IV .Q0M [facility] Rx#: [id number] Oral 100 Tube Feeding 495 693 580 Blood Product 310 Rc As-1 Unit 310 [id number] Other 100 600 400 Output: Urine 2300 1415 835 Other: Voiding Method Indwelling Catheter Indwelling Catheter ABP, PAP, CO, CI - Last Documented Arterial Blood Pressure 106/56 - Labs CBC & Chem 7: 01/27/20 03:52 01/27/20 03:52 Labs: Abnormal Lab Results - Last 24 Hours (Table) 01/22/20 01/23/20 01/25/20 Range/Units 04:50 04:30 08:15 RBC (3.80-5.40) m/uL Hgb (11.4-16.0) gm/dL Hct (34.0-46.0) % RDW (11.5-15.5) % Plt Count (150-450) k/uL Neutrophils # (1.3-7.7) k/uL ABG pH (7.35-7.45) ABG pCO2 (35-45) mmHg ABG pO2 (83-108) mmHg ABG HCO3 (21-25) mmol/L ABG Total CO2 (19-24) mmol/L ABG O2 Saturation (94-97) % Sodium (137-145) mmol/L Chloride (98-107) mmol/L BUN (7-17) mg/dL Glucose (74-99) mg/dL POC Glucose (mg/dL) (75-99) mg/dL Calcium (8.4-10.2) mg/dL LD Isoenzymes 410 H 373 H (120-250) U/L Total Protein (6.3-8.2) g/dL Albumin (3.5-5.0) g/dL Crossmatch See Detail 01/26/20 01/26/20 01/26/20 Range/Units 17:43 20:32 23:48 RBC (3.80-5.40) m/uL Hgb (11.4-16.0) gm/dL Hct (34.0-46.0) % RDW (11.5-15.5) % Plt Count (150-450) k/uL Neutrophils # (1.3-7.7) k/uL ABG pH (7.35-7.45) ABG pCO2 (35-45) mmHg ABG pO2 (83-108) mmHg ABG HCO3 (21-25) mmol/L ABG Total CO2 (19-24) mmol/L ABG O2 Saturation (94-97) % Sodium (137-145) mmol/L Chloride (98-107) mmol/L BUN (7-17) mg/dL Glucose (74-99) mg/dL POC Glucose (mg/dL) 137 H 104 H 131 H (75-99) mg/dL Calcium (8.4-10.2) mg/dL LD Isoenzymes (120-250) U/L Total Protein (6.3-8.2) g/dL Albumin (3.5-5.0) g/dL Crossmatch 01/27/20 01/27/20 01/27/20 Range/Units 03:52 03:52 05:20 RBC 2.38 L (3.80-5.40) m/uL Hgb 7.5 L (11.4-16.0) gm/dL Hct 22.6 L (34.0-46.0) % RDW 16.4 H (11.5-15.5) % Plt Count 109 L (150-450) k/uL Neutrophils # 8.8 H (1.3-7.7) k/uL ABG pH (7.35-7.45) ABG pCO2 (35-45) mmHg ABG pO2 (83-108) mmHg ABG HCO3 (21-25) mmol/L ABG Total CO2 (19-24) mmol/L ABG O2 Saturation (94-97) % Sodium 135 L (137-145) mmol/L Chloride 109 H (98-107) mmol/L BUN 49 H (7-17) mg/dL Glucose 125 H (74-99) mg/dL POC Glucose (mg/dL) 133 H (75-99) mg/dL Calcium 7.7 L (8.4-10.2) mg/dL LD Isoenzymes (120-250) U/L Total Protein 4.0 L (6.3-8.2) g/dL Albumin 1.8 L (3.5-5.0) g/dL Crossmatch 01/27/20 01/27/20 01/27/20 Range/Units 05:50 12:11 17:10 RBC (3.80-5.40) m/uL Hgb (11.4-16.0) gm/dL Hct (34.0-46.0) % RDW (11.5-15.5) % Plt Count (150-450) k/uL Neutrophils # (1.3-7.7) k/uL ABG pH 7.53 H (7.35-7.45) ABG pCO2 32 L (35-45) mmHg ABG pO2 51 L* (83-108) mmHg ABG HCO3 27 H (21-25) mmol/L ABG Total CO2 28 H (19-24) mmol/L ABG O2 Saturation 90.9 L (94-97) % Sodium (137-145) mmol/L Chloride (98-107) mmol/L BUN (7-17) mg/dL Glucose (74-99) mg/dL POC Glucose (mg/dL) 147 H 131 H (75-99) mg/dL Calcium (8.4-10.2) mg/dL LD Isoenzymes (120-250) U/L Total Protein (6.3-8.2) g/dL Albumin (3.5-5.0) g/dL Crossmatch
[2020-01-27] MEDS: MELATONIN 5 MG TABLET PO SCH (19:37)
[2020-01-27 19:45] LABS: Glucose,Whole Blood 129 mg/dL (75-99)
[2020-01-27] MEDS: INSULIN DETEMIR (LEVEMIR) 100 UNIT/ML SYR SQ SCH (20:38)
[2020-01-27] MEDS: NOREPINEPHRINE 4 MG in SODIUM CHLORIDE 0.9% 250 ML IV SCH (21:20)
[2020-01-27 23:30] LABS: Glucose,Whole Blood 137 mg/dL (75-99)
[2020-01-28 04:26] LABS: Anisocytosis Slight; HCT 22.4 % (34.0-46.0); HGB 7.1 gm/dL (11.4-16.0); Hypochromasia Slight; MCH 30.3 pg (25.0-35.0); MCHC 31.9 g/dL (31.0-37.0); MCV 95.2 fL (80.0-100.0); Macrocytosis Slight; Mean Platelet Volume 10.1; Platelet Count 125 k/uL (150-450); RBC 2.35 m/uL (3.80-5.40); RDW 17.5 % (11.5-15.5)
[2020-01-28 04:30] LABS: Albumin 1.8 g/dL (3.5-5.0); Chloride 110 mmol/L (98-107); Glucose 122 mg/dL (74-99); Potassium 3.9 mmol/L (3.5-5.1); Sodium 137 mmol/L (137-145); Total Protein 3.9 g/dL (6.3-8.2); Triglycerides 87 mg/dL (<150)
[2020-01-28 04:32] LABS: ALT 47 U/L (4-34); AST 39 U/L (14-36); African American GFR (CKD) >90 (>60 ml/min/1.73 sqM); Alkaline Phosphatase 51 U/L (38-126); Anion Gap -2 mmol/L; Blood Urea Nitrogen 46 mg/dL (7-17); Calcium 7.6 mg/dL (8.4-10.2); Carbon Dioxide 29 mmol/L (22-30); Creatine Kinase 92 U/L (30-135); LDH 1039 U/L (313-618); Non-African American GFR(CKD) 83 (>60 ml/min/1.73 sqM); Total Bilirubin 0.5 mg/dL (0.2-1.3)
[2020-01-28] MEDS ORDERED: POTASSIUM BICARBONATE/CIT AC 20 MEQ TABLET.EFF PO ONE (04:59)
[2020-01-28 05:28] LABS: Eosinophils # (M) 0.19 k/uL (0-0.7); Lymphocytes # (M) 0.86 k/uL (1.0-4.8); Neutrophils # (M) 8.36 k/uL (1.3-7.7); Neutrophils % (M) 88 %; Nucleated Red Blood Cells 2 /100 WBC (0-0); Total Cells Counted 200; WBC 9.5 k/uL (3.8-10.6)
[2020-01-28 05:29] LABS: Polychromasia Present
[2020-01-28 05:42] LABS: Glucose,Whole Blood 116 mg/dL (75-99)
[2020-01-28 06:05] LABS: ABG Base Excess 3.1 mmol/L; ABG HCO3 27 mmol/L (21-25); ABG Oxygen Saturation 97.5 % (94-97); ABG PCO2 37 mmHg (35-45); ABG PH 7.47 (7.35-7.45); ABG PO2 76 mmHg (83-108); ABG TCO2 28 mmol/L (19-24); Allen Test Performed? Yes
[2020-01-28] MEDS: INSULIN ASPART (NovoLOG) 100 UNIT/ML VIAL SQ SCH ×3 (06:10→18:03)
[2020-01-28 06:56] LABS: C Reactive Protein 74.7 mg/L (<10.0)
--- NOTE | 2020-01-28 07:38 | XR ---
EXAMINATION TYPE: XR chest 1V portable DATE OF EXAM: 01/28/2020 COMPARISON: chest x-ray 01/27/2020 HISTORY: Intubated TECHNIQUE: Single frontal view of the chest is obtained. FINDINGS: Patient is rotated. Endotracheal tube is overlying the tracheal air column, NG tube is in place and coiled within stomach, distal tip coursing cephalad, there is partial intrathoracic stomach with hiatal hernia. Bilateral airspace disease shows a similar appearance. Heart size is unchanged. No pneumothorax is evident, there is blunting the left costophrenic angle, increased retrocardiac den sity suggestive of possible effusion, atelectasis. Aorta is dense. There are overlying leads. Right h emidiaphragm somewhat obscured. IMPRESSION: Findings are similar to prior exam. Correlate for pneumonia, edema, ARDS, possible small effusions.
[2020-01-28] MEDS: ALBUTEROL HFA INHALER INHALATION SCH ×4 (07:39→19:49)
[2020-01-28] MEDS: ASCORBIC ACID 500 MG TAB PO SCH (08:00)
[2020-01-28] MEDS: FAMOTIDINE 20 MG TAB PO SCH (08:00)
[2020-01-28] MEDS: AMIODARONE 200 MG TAB PO SCH ×2 (08:01→21:17)
[2020-01-28] MEDS: ZINC SULFATE 220 MG CAP PO SCH (08:01)
[2020-01-28] MEDS: ENOXAPARIN 60 MG/0.6 ML SYRINGE SQ SCH ×2 (08:01→21:16)
[2020-01-28] MEDS: CHLORHEXIDINE GLUCONATE 15 ML CUP MUCOUS MEM SCH ×2 (08:01→21:16)
[2020-01-28] MEDS: CHOLECALCIFEROL 1,000 UNIT TAB PO SCH (08:01)
[2020-01-28] MEDS: METOPROLOL TARTRATE 50 MG TAB PO SCH ×2 (08:01→21:16)
--- NOTE | 2020-01-28 10:25 | PN ---
PROGRESS NOTE PULMONARY/CRITICAL CARE PROGRESS NOTE: DATE OF SERVICE: 01/28/2020 Critical care time 33 minutes. This is a 79-year-old female who was admitted back on January 08 for COVID-19 pneumonitis. Unfortunately, she developed worsening respiratory failure with hypoxemia and required intubation on January 15. She has been intubated now for more than 10 days. She is really not making much progress towards weaning and extubation. Today, I had a long talk with the patient's , Mitchell. I talked to him about 2 different things including do not resuscitate orders as well as when we end up saying enough is enough for his in terms of removing life support. He is going to talk to the family and get back with us. The patient has received full court therapy including Remdesicvir, convalescent plasma, Decadron, as well as vitamin C, D3, and zinc. Currently, she remains on the volume assist-control mode rate of 20, tidal volume 450, FiO2 of 50%, PEEP of 10, blood gases show a pO2 of 76, pCO2 of 37 and a pH of 7.47. Because of the concerns of low tidal volume strategy, we are going to drop the tidal volume from 450-350 and increased the rate from 20-25. The patient is currently on propofol at 40 mcg/kg per minute, saline at 20 mL an hour, norepinephrine at 18 mcg/minute and Vital high-protein at 58 with a goal of 58. The patient will get a daily interruption of sedation and spontaneous breathing trial today. In addition, the patient's Decadron was recently discontinued. It may be the that she has some relative adrenal insufficiency. We will check a cortisol level. In addition, we will give her 100 mg of hydrocortisone IV push and see how she responds. When she does have her spontaneous breathing trial, will go with PSV 10, CPAP of 5. A couple days ago, she did not tolerate the drop from a PEEP of 10-5. Current vital signs are reviewed, temperature is 98.4, heart rate 67, respiratory rate 24, blood pressure 122/56, saturations are mid 90s. Appears in no acute distress. HEENT: Examination is grossly unremarkable. NECK: Supple, full range of motion. No adenopathy. Neck veins are flat. CARDIOVASCULAR: Examination reveals regular rhythm and rate. S1, S2 normal. No S3, S4, or murmur. LUNGS: Reveal coarse bilateral rhonchi. Breath sounds are diminished. No wheezes. A few scattered crackles. ABDOMEN: Soft, bowel sounds are noted. EXTREMITIES: Intact. Minimal edema. SKIN: Without rash. NEUROLOGIC: Examination cannot be adequately assessed. The patient has an orally placed endotracheal tube and NG tube. CURRENT LABS: Reviewed. White count 9.5 and hemoglobin 7.1, hematocrit 22.4, platelet count 125,000. D-dimer 3.42, PO2 was 76, pCO2 pf 37., pH is 7.47. Sodium 137, potassium 3.9, chloride 110, CO2 is 29, BUN and creatinine were 46 and 0.69. Calcium 7.6, AST 39, ALT 47, albumin 1.8. Microbiology is reviewed. From January 16, the urine was positive for E coli and Enterococcus faecalis. The most recent chest x-ray is reviewed. The chest x-ray shows bilateral infiltrates, more patchy in distribution. They tend to be more right than left-sided. CURRENT MEDICATIONS: Reviewed. She is currently on Tylenol, albuterol inhaler, Cordarone, vitamin C, chlorhexidine, vitamin D3, Cleviprex p.r.n., Lovenox, famotidine, hydralazine, insulin, Levaquin, magnesium replacement, melatonin, metoprolol, Narcan, norepinephrine, K-Lyte, potassium replacement, propofol and zinc. ASSESSMENT: 1. Acute hypoxemic respiratory failure secondary to COVID-19 pneumonitis/pneumonia, with acute lung injury and ARDS, status post intubation and mechanical ventilation on January 16, 2020. 2. Acute right-sided pulmonary embolism, currently on anticoagulation with Lovenox. 3. Acute blood loss anemia, status post transfusion. 4. History of recurrent atrial fibrillation. 5. Remote history of deep venous thrombosis. 6. Acute kidney injury. 7. Hypercoagulable state. 8. Hyponatremia, improved. 9. Failure to wean from mechanical ventilation. 10.E coli and Enterococcus faecalis urinary tract infection, currently being treated. PLAN: I did have a long talk with the patient's , Mitchell. We did talk about DNR and also long-term what should be done next. The patient's vent settings will be changed. The tidal volume will be dropped from 450 to 350. The rate is increased from 20-25. The patient remains on Diprivan, norepinephrine, and Vital high-protein. I am going to go ahead and do a daily interruption of sedation and spontaneous breathing trial. The patient will be on PSV 10, CPAP of 5. The patient will get a random cortisol level. Will see if there is any relative adrenal insufficiency. In addition, the patient will get a test dose of hydrocortisone, 100 mg IV push. Additional recommendations and suggestions are forthcoming. Overall prognosis is poor. Again, I had a long talk with the patient's , Jatin. Additional recommendations and suggestions are forthcoming. Critical care time 33 minutes. MMRIGOBERTOL / DARRICKN: [id number] /
[2020-01-28 11:24] LABS: Ferritin 557.3 ng/mL (10.0-291.0)
[2020-01-28] MEDS: NOREPINEPHRINE 4 MG in SODIUM CHLORIDE 0.9% 250 ML IV SCH (12:44)
[2020-01-28 13:23] LABS: Glucose,Whole Blood 154 mg/dL (75-99)
--- NOTE | 2020-01-28 14:28 | P.PN ---
Subjective Progress Note Date: 01/28/20 (varun charting seen at 0959) Principal diagnosis: shortness of breath Patient is a 79-year-old female history of DVT who presented to the emergency department with complaints of shortness of breath. She initially had a DVT and stopped her Xarelto as she was concerned about an interaction with the azithromycin she had been prescribed due to COVID 19. In the ER she underwent an extensive evaluation. She is on have a pulmonary embolism was started on a heparin drip, she was found have Covid 19 pneumonia and was started on steroids, zinc, vitamin C, and melatonin. Pulmonary was consulted. She was admitted to the selective care unit. She was found to be in atrial fibrillation which was new onset. Cardiology was consulted. She was started on low-dose metoprolol. On the evening of 01/09 she went and A. fib with RVR was started on Cardizem drip. On the morning of 01/10 she was seen by cardiology Cardizem drip was discontinued and she was started on metoprolol 25 mg twice a day. Her oxygen requirements were increasing throughout her hospital stay. Pulmonary determined she was not a candidate for aggressive ears are Covid symptoms that started 2 we eks prior. Case had been discussed with vascular who felt she was not a candidate for catheter directed TPA/EKOS. On 01/11 she was seen by pulmonary and started on Remedesivir. She was transferred to the ICU overnight on 01/11 due to progressive hypoxemia. She required aerosol as well as a nonrebreather. By the morning of 01/14 she had received 2 units of convalescent plasma. On the morning of 01/15 she was requiring BiPAP. She had a triple-lumen catheter placed. She failed BiPAP therapy and was subsequently intubated overnight on 01/15. After intubation she again went into A. fib with RVR and required a Cardizem drip for a short time but then converted to normal sinus rhythm. She did require levothyroxine secondary to hypotension. She again went into A. fib with RVR on 01/17 and secondary to her hypotension she was started on amiodarone. Levophed weaned off by 01/18 and she was able to be switched to oral amiodarone. During her ICU stay her heparin drip was transitioned to Lovenox subcutaneous. She still has not been able to wean from the ventilator. PEEP decreased 01/21. She has following commands but very weak on 01/22. On 01/23 her sedation was stopped and she did become agitated requiring resedation. Her HgB dropped for unknown reason on 01/24 and was felt to maybe be due to leaking from her around her subclavian cath. She was given 1 unit pRBC. Attempted to wean sedation but she became agitated. On 01/26 required increasing PPE and was placed back on levophed. Patient seen and examined at bedside. No additional events overnight General: Ill-appearing, no distress, appears at stated age Derm: warm, dry, Head: atraumatic, normocephalic, symmetric Eyes: EOMI, no lid lag, anicteric sclera Mouth: no lip lesion, mucus membranes moist Cardiovascular: S1S2 reg, no murmur, positive posterior tibial pulse bilateral, Lungs: Coarse breath sounds bilateral, no rhonchi, no rales, no accessory muscle use Abdominal: soft, nontender to palpation, no guarding, no appreciable organomegaly Ext: no gross muscle atrophy, diffuse anasarca (improving), no contractures Neuro: No gross muscle atrophy, no tremors noted, moving right fingers and bilateral toes Psych: lethargic but open eyes Covid 19 pneumonia with acute hypoxic respiratory failure, ARDS - Completed Remdesivir on 01/15 - s/p Dexamethasone day #17 days completed - Status post convalescent plasma 01/14 - Pulmonary recommendations completed - Continue zinc, vitamin C, vitamin D, Pepcid, and melatonin - repeat COVID testing for trach and peg Anemia, undetermined cause, thrombocytopenia, likely reactive - 1 unit pRBC 01/25/2020 - stools is brown continue to follow - suspect due to slow leak from TLC site. - Lovenox. dose adjusted by pulm for bleeding DIffuse Anasarca - Lasix X 1 given 01/22, repeated 01/25 Pulmonary embolus without right ventricular strain, history of prior DVT - Lovenox P. A fib with RVR - lovenox, amio - now in NSR Entercoccus and E coli UTI - Levaquin D # 09/01 of treatment Thrombocytopenia KALYAN due to ATN with resultant metabolic acidosis and hyperphosphatemia, resolved Septic shock, resolved Hypokalemia, resolved DVT prophylaxis: Lovenox for PE Discussed with: Nursing Anticipated discharge: undetermined Anticipated discharge place: [facility] A total of 25 minutes was spent on the care of this complex patient more than 50% of the time was spent in counseling and care coordination. Objective - Vital Signs Vital signs: Vital Signs Temp 98.4 F 01/28/20 08:00 Pulse 63 01/28/20 10:00 Resp 29 H 01/28/20 10:00 BP 88/60 01/25/20 20:00 Pulse Ox 94 L 01/28/20 10:00 Intake & Output 01/27/20 01/28/20 01/28/20 18:59 06:59 18:59 Intake Total 2465.008 1723.547 678.869 Output Total 456 135 9737 Balance 1475.008 903.547 -396.131 Weight 93.5 kg Intake: IV 791 276 92 .9 @ KVO 155 240 80 Levofloxacin 500Mg-D5w 100 Pmx 500 mg In Dextrose/ Water 1 100ml.bag @ 100 mls/hr IVPB Q24H [facility] Rx#: [id number] Sodium Chloride 0.9% 500 500 ml 500 ml @ 999 mls/hr IV .Q31M [facility] Rx#:[id number] pressure bags 36 36 12 Intake, IV Titration 168.008 151.547 254.869 Amount Norepinephrine 4 mg In 254.869 Sodium Chloride 0.9% 250 ml @ 0.05 MCG/KG/MIN 17. 377 mls/hr IV .[id number] [facility] Rx#:[id number] propofoL 1,000 mg In 168.008 151.547 Empty Bag 1 bag @ Titrate IV .Q0M [facility] Rx#: [id number] Oral 100 Tube Feeding 696 696 232 Blood Product 310 Rc As-1 Unit 310 [id number] Other 400 600 100 Output: Urine 777 749 3418 Other: Voiding Method Indwelling Catheter Indwelling Catheter Indwelling Catheter ABP, PAP, CO, CI - Last Documented Arterial Blood Pressure 119/58 - Labs CBC & Chem 7: 01/28/20 03:51 01/28/20 09:12 Labs: Abnormal Lab Results - Last 24 Hours (Table) 01/22/20 01/23/20 01/27/20 Range/Units 04:50 04:30 17:10 RBC (3.80-5.40) m/uL Hgb (11.4-16.0) gm/dL Hct (34.0-46.0) % RDW (11.5-15.5) % Plt Count (150-450) k/uL Neutrophils # (Manual) (1.3-7.7) k/uL Lymphocytes # (Manual) (1.0-4.8) k/uL Nucleated RBCs (0-0) /100 WBC D-Dimer (<0.60) mg/L FEU ABG pH (7.35-7.45) ABG pO2 (83-108) mmHg ABG HCO3 (21-25) mmol/L ABG Total CO2 (19-24) mmol/L ABG O2 Saturation (94-97) % Chloride (98-107) mmol/L BUN (7-17) mg/dL Glucose (74-99) mg/dL POC Glucose (mg/dL) 131 H (75-99) mg/dL Calcium (8.4-10.2) mg/dL Ferritin (10.0-291.0) ng/mL AST (14-36) U/L ALT (4-34) U/L Lactate Dehydrogenase (313-618) U/L LD Isoenzymes 410 H 373 H (120-250) U/L C-Reactive Protein (<10.0) mg/L Total Protein (6.3-8.2) g/dL Albumin (3.5-5.0) g/dL 01/27/20 01/27/20 01/28/20 Range/Units 19:43 23:29 03:51 RBC (3.80-5.40) m/uL Hgb (11.4-16.0) gm/dL Hct (34.0-46.0) % RDW (11.5-15.5) % Plt Count (150-450) k/uL Neutrophils # (Manual) (1.3-7.7) k/uL Lymphocytes # (Manual) (1.0-4.8) k/uL Nucleated RBCs (0-0) /100 WBC D-Dimer 3.42 H (<0.60) mg/L FEU ABG pH (7.35-7.45) ABG pO2 (83-108) mmHg ABG HCO3 (21-25) mmol/L ABG Total CO2 (19-24) mmol/L ABG O2 Saturation (94-97) % Chloride (98-107) mmol/L BUN (7-17) mg/dL Glucose (74-99) mg/dL POC Glucose (mg/dL) 129 H 137 H (75-99) mg/dL Calcium (8.4-10.2) mg/dL Ferritin (10.0-291.0) ng/mL AST (14-36) U/L ALT (4-34) U/L Lactate Dehydrogenase (313-618) U/L LD Isoenzymes (120-250) U/L C-Reactive Protein (<10.0) mg/L Total Protein (6.3-8.2) g/dL Albumin (3.5-5.0) g/dL 01/28/20 01/28/20 01/28/20 Range/Units 03:51 03:51 05:40 RBC 2.35 L (3.80-5.40) m/uL Hgb 7.1 L (11.4-16.0) gm/dL Hct 22.4 L (34.0-46.0) % RDW 17.5 H (11.5-15.5) % Plt Count 125 L (150-450) k/uL Neutrophils # (Manual) 8.36 H (1.3-7.7) k/uL Lymphocytes # (Manual) 0.86 L (1.0-4.8) k/uL Nucleated RBCs 2 H (0-0) /100 WBC D-Dimer (<0.60) mg/L FEU ABG pH (7.35-7.45) ABG pO2 (83-108) mmHg ABG HCO3 (21-25) mmol/L ABG Total CO2 (19-24) mmol/L ABG O2 Saturation (94-97) % Chloride 110 H (98-107) mmol/L BUN 46 H (7-17) mg/dL Glucose 122 H (74-99) mg/dL POC Glucose (mg/dL) 116 H (75-99) mg/dL Calcium 7.6 L (8.4-10.2) mg/dL Ferritin 557.3 H (10.0-291.0) ng/mL AST 39 H (14-36) U/L ALT 47 H (4-34) U/L Lactate Dehydrogenase 1039 H (313-618) U/L LD Isoenzymes (120-250) U/L C-Reactive Protein 74.7 H (<10.0) mg/L Total Protein 3.9 L (6.3-8.2) g/dL Albumin 1.8 L (3.5-5.0) g/dL 01/28/20 01/28/20 Range/Units 06:00 13:22 RBC (3.80-5.40) m/uL Hgb (11.4-16.0) gm/dL Hct (34.0-46.0) % RDW (11.5-15.5) % Plt Count (150-450) k/uL Neutrophils # (Manual) (1.3-7.7) k/uL Lymphocytes # (Manual) (1.0-4.8) k/uL Nucleated RBCs (0-0) /100 WBC D-Dimer (<0.60) mg/L FEU ABG pH 7.47 H (7.35-7.45) ABG pO2 76 L (83-108) mmHg ABG HCO3 27 H (21-25) mmol/L ABG Total CO2 28 H (19-24) mmol/L ABG O2 Saturation 97.5 H (94-97) % Chloride (98-107) mmol/L BUN (7-17) mg/dL Glucose (74-99) mg/dL POC Glucose (mg/dL) 154 H (75-99) mg/dL Calcium (8.4-10.2) mg/dL Ferritin (10.0-291.0) ng/mL AST (14-36) U/L ALT (4-34) U/L Lactate Dehydrogenase (313-618) U/L LD Isoenzymes (120-250) U/L C-Reactive Protein (<10.0) mg/L Total Protein (6.3-8.2) g/dL Albumin (3.5-5.0) g/dL
[2020-01-28 17:53] LABS: Glucose,Whole Blood 138 mg/dL (75-99)
[2020-01-28] MEDS: CLEVIDIPINE BUTYRATE 25 MG in EMPTY BAG 1 BAG IV SCH (19:01)
[2020-01-28] MEDS: LEVOFLOXACIN 500MG-D5W PMX 500 MG in DEXTROSE/WATER 1 100ML.BAG IVPB SCH (19:15)
[2020-01-28] MEDS ORDERED: HYDROCORTISONE SUCCINATE 100 MG/2 ML VIAL IV STA (20:12)
[2020-01-28] MEDS: MELATONIN 5 MG TABLET PO SCH (21:16)
[2020-01-29 00:02] LABS: Glucose,Whole Blood 122 mg/dL (75-99)
[2020-01-29] MEDS: INSULIN DETEMIR (LEVEMIR) 100 UNIT/ML SYR SQ SCH ×2 (00:09→20:42)
[2020-01-29] MEDS: INSULIN ASPART (NovoLOG) 100 UNIT/ML VIAL SQ SCH ×4 (00:10→17:46)
[2020-01-29 05:14] LABS: Glucose,Whole Blood 203 mg/dL (75-99)
[2020-01-29 05:14] LABS: Anisocytosis Slight; Basophils % (A) 0 %; Eosinophils # (A) 0.1 k/uL (0-0.7); Eosinophils % (A) 1 %; HCT 20.7 % (34.0-46.0); Hypochromasia Slight; Lymphocytes # (A) 0.3 k/uL (1.0-4.8); Lymphocytes % (A) 3 %; MCH 31.7 pg (25.0-35.0); MCHC 32.7 g/dL (31.0-37.0); Macrocytosis Slight; Mean Platelet Volume 9.7; Monocytes # (A) 0.2 k/uL (0-1.0); Monocytes % (A) 3 %; Neutrophils # (A) 7.4 k/uL (1.3-7.7); Neutrophils % (A) 93 %; Platelet Count 106 k/uL (150-450); RBC 2.13 m/uL (3.80-5.40); RDW 17.1 % (11.5-15.5); WBC 7.9 k/uL (3.8-10.6)
[2020-01-29 05:15] LABS: ABG Base Excess 2.7 mmol/L; ABG HCO3 27 mmol/L (21-25); ABG Oxygen Saturation 98.9 % (94-97); ABG PCO2 43 mmHg (35-45); ABG PH 7.41 (7.35-7.45); ABG PO2 88 mmHg (83-108); ABG TCO2 29 mmol/L (19-24); Allen Test Performed? Yes
[2020-01-29 05:18] LABS: HGB 6.8 gm/dL (11.4-16.0)
[2020-01-29 05:33] LABS: ALT 48 U/L (4-34); AST 34 U/L (14-36); African American GFR (CKD) >90 (>60 ml/min/1.73 sqM); Albumin 1.8 g/dL (3.5-5.0); Alkaline Phosphatase 54 U/L (38-126); Anion Gap -1 mmol/L; Blood Urea Nitrogen 40 mg/dL (7-17); Calcium 7.9 mg/dL (8.4-10.2); Carbon Dioxide 30 mmol/L (22-30); Chloride 110 mmol/L (98-107); Glucose 177 mg/dL (74-99); Magnesium 2.1 mg/dL (1.6-2.3); Non-African American GFR(CKD) 86 (>60 ml/min/1.73 sqM); Phosphorus 3.4 mg/dL (2.5-4.5); Potassium 4.4 mmol/L (3.5-5.1); Sodium 139 mmol/L (137-145); Total Bilirubin 0.3 mg/dL (0.2-1.3); Total Protein 3.9 g/dL (6.3-8.2)
--- NOTE | 2020-01-29 07:52 | XR ---
EXAMINATION TYPE: XR chest 1V portable DATE OF EXAM: 01/29/2020 Comparison: 01/28/2020 Clinical History: 79-year-old female Intubation/congestion Findings: ET tube tip 1.8 cm from the ollie. NG tube courses below the diaphragm. There may be a left-sided ch est tube. No appreciable pneumothorax. Diffuse bilateral interstitial and some patchy airspace opacit ies persist. Possible trace effusions. No significant change. Impression: 1. ET tube tip 1.8 cm from the ollie. Pull back 1.5 cm and reassess at follow-up. 2. Diffuse interstitial and patchy airspace opacities persist without significant change.
[2020-01-29] MEDS: ALBUTEROL HFA INHALER INHALATION SCH ×4 (07:57→19:54)
[2020-01-29] MEDS: ZINC SULFATE 220 MG CAP PO SCH (09:26)
[2020-01-29] MEDS: CHLORHEXIDINE GLUCONATE 15 ML CUP MUCOUS MEM SCH ×2 (09:26→20:42)
[2020-01-29] MEDS: AMIODARONE 200 MG TAB PO SCH ×2 (09:27→20:41)
[2020-01-29] MEDS: ENOXAPARIN 60 MG/0.6 ML SYRINGE SQ SCH ×2 (09:27→20:41)
[2020-01-29] MEDS: ASCORBIC ACID 500 MG TAB PO SCH (09:27)
[2020-01-29] MEDS: CHOLECALCIFEROL 1,000 UNIT TAB PO SCH (09:27)
[2020-01-29] MEDS: FAMOTIDINE 20 MG TAB PO SCH (09:27)
[2020-01-29] MEDS: METOPROLOL TARTRATE 50 MG TAB PO SCH ×2 (09:29→20:41)
--- NOTE | 2020-01-29 10:22 | P.PN ---
Subjective Progress Note Date: 01/29/20 Principal diagnosis: COVID 19 pneumonia This is 79-year-old white female patient who was admitted to the hospital on 01/09/2020 with COVID 19 pneumonia, and the chest x-ray showing diffuse bilateral pulmonary infiltrates. In addition CT angios of the chest showed pulmonary embolism involving mainly the right sided pulmonary artery branches. Patient continued to worsen on supportive medical treatment, and it went on to be intubated on 01/16/2020. Today on 01/26/2020 she remains intubated and sedated, on assist-control mode of ventilation with a rate of 20, tidal volume 450, FiO2 of 50% and PEEP of 10, this morning his blood gases showed a pO2 of 99, pCO2 40, and pH of 7.45, this was done on the above-mentioned blood gases, and the PEEP will be dropped down to 5, IV 0.9 normal saline at 10 ML per hour, Diprivan and is currently at 10 mics per kilo per minute, and vital high protein is 4 nutritional support at a rate of 55 with a goal of 55. Patient has been having awakening trials on the daily basis, however she is usually very hypertensive and tachycardic during the sedation holidays, and intermittently required clevidipine for blood pressure management. Patient has completed her Remdesivir on 01/16/2020, and she was given 1 unit of convalescent plasma on 01/14/2020. She remains on Lovenox, currently at 60 mg every 12 hours and the dose wet To be adjusted yesterday in view of some bleeding from the right subclavian triple-lumen insertion site, and there was a drop in hemoglobin to 6.4 requiring transfusion with 1 unit of packed red blood cell, she continues on IV steroids will be discontinued. On 01/27/2020 patient seen in follow-up in intensive care unit, she remains intubated, sedated on mechanical ventilator, with current vent settings of assist control mode of ventilation with a rate of 20, tidal on this 450, FiO2 of 50% and PEEP of 5, this morning his blood gases showed pO2 of 51, pCO2 of 32, and pH of 7.53. We will increase the PEEP to 10. Yesterday patient was given sedation holiday, and spontaneous breathing trial however she quickly failed spontaneous breathing trial, with signs of increased heart rate, increased respiratory rate and hypertension, requiring clevidipine infusion, today's chest x-ray shows bilateral infiltrates stable in appearance, vital signs have been stable, no vasoactive drips, she is in sinus mechanism, at times tachycardic especially during spontaneous awakening trials. She remains on anticoagulation currently on Lovenox 60 mg twice daily. Today's labs have been reviewed, sure what blood cell count of 10.5, hemoglobin of 7.5, platelet count is 109, sodium of 135, potassium 3.8, chloride is 109, B UN of 49, creatinine is 0.68. Patient is receiving nutrition in the form of vital high protein at 58 with a goal of 58. On 01/29/2020 patient seen in follow-up in intensive care unit, she remains intubated, and sedated on mechanical ventilator, current vent settings are assist-control mode of ventilation with a rate of 25, tidal volume 350, FiO2 of 50% and PEEP of 10, blood gases show pO2 of 88, pCO2 of 43, and pH of 7.41. Currently on 0.9 normal saline at KVO, Diprivan is a 50 mics per kilo per minute, Levaphed at 1.8 mics per minute, nutritional support with vital high protein at 58 with a goal of 15, yesterday patient was supposed to have a daily interruption of sedation and spontaneous breathing trial with pressure support of 10. Patient failed spontaneous awakening trial yesterday, and she never to the spontaneous breathing trial, came very tachypneic, started desaturating, with increase of heart rate and blood pressure. She was placed back on sedation. Remains on anticoagulation, she remains on Pepcid, she has completed her Remdesivir, she received 1 unit of convalescent plasma, she has received an extended course of steroids. She has not made significant improvement in terms of weaning. Objective - Vital Signs Vital signs: Vital Signs Temp 97.9 F 01/29/20 04:00 Pulse 105 H 01/29/20 08:00 Resp 25 H 01/29/20 08:00 BP 88/60 01/28/20 17:00 Pulse Ox 92 L 01/29/20 08:00 Intake & Output 01/28/20 01/29/20 01/29/20 18:59 06:59 18:59 Intake Total 1661.578 1389.840 181 Output Total 2200 1600 100 Balance -709.188 46.840 81 Weight 91.7 kg Intake: IV 276 276 23 .9 @ KVO 240 240 20 pressure bags 36 36 3 Intake, IV Titration 418.812 306.840 100 Amount Norepinephrine 4 mg In 295.243 30.409 Sodium Chloride 0.9% 250 ml @ 0.05 MCG/KG/MIN 17. 377 mls/hr IV .[id number] [facility] Rx#:[id number] propofoL 1,000 mg In 123.569 276.431 100 Empty Bag 1 bag @ Titrate IV .Q0M [facility] Rx#: [id number] Tube Feeding 696 464 58 Other 100 600 Output: Urine 2200 1600 100 Other: Voiding Method Indwelling Catheter Indwelling Catheter ABP, PAP, CO, CI - Last Documented Arterial Blood Pressure 122/65 - Exam GENERAL EXAM: Sedated, intubated, 79-year-old comfortable, on assist control mode of ventilation with the FiO2 of 50%, and PEEP of 10 in no apparent distress. HEAD: Normocephalic/atraumatic. EYES: Normal reaction of pupils, equal size. Conjunctiva pink, sclera white. NOSE: Clear with pink turbinates. THROAT: No erythema or exudates. NECK: No masses, no JVD, no thyroid enlargement, no adenopathy. CHEST: No chest wall deformity. Symmetrical expansion. LUNGS: Equal air entry with no crackles, wheeze, rhonchi or dullness. CVS: Irregular rate and rhythm, normal S1 and S2, no gallops, no murmurs, no rubs ABDOMEN: Soft, nontender. No hepatosplenomegaly, normal bowel sounds, no guarding or rigidity. EXTREMITIES: No clubbing, no edema, no cyanosis, 2+ pulses and upper and lower extremities. MUSCULOSKELETAL: Muscle strength and tone normal. SPINE: No scoliosis or deformity SKIN: No rashes CENTRAL NERVOUS SYSTEM: Sedated No focal deficits, tone is normal in all 4 extremities. - Labs CBC & Chem 7: 01/29/20 04:45 01/29/20 04:45 Labs: Abnormal Lab Results - Last 24 Hours (Table) 01/26/20 01/28/20 01/28/20 Range/Units 21:35 03:51 13:22 RBC (3.80-5.40) m/uL Hgb (11.4-16.0) gm/dL Hct (34.0-46.0) % RDW (11.5-15.5) % Plt Count (150-450) k/uL Lymphocytes # (1.0-4.8) k/uL ABG HCO3 (21-25) mmol/L ABG Total CO2 (19-24) mmol/L ABG O2 Saturation (94-97) % Chloride (98-107) mmol/L BUN (7-17) mg/dL Glucose (74-99) mg/dL POC Glucose (mg/dL) 154 H (75-99) mg/dL Calcium (8.4-10.2) mg/dL Ferritin 557.3 H (10.0-291.0) ng/mL ALT (4-34) U/L Total Protein (6.3-8.2) g/dL Albumin (3.5-5.0) g/dL Coronavirus (PCR) Detected A (Not Detected) 01/28/20 01/28/20 01/29/20 Range/Units 17:49 23:56 04:45 RBC 2.13 L (3.80-5.40) m/uL Hgb 6.8 L* (11.4-16.0) gm/dL Hct 20.7 L (34.0-46.0) % RDW 17.1 H (11.5-15.5) % Plt Count 106 L (150-450) k/uL Lymphocytes # 0.3 L (1.0-4.8) k/uL ABG HCO3 (21-25) mmol/L ABG Total CO2 (19-24) mmol/L ABG O2 Saturation (94-97) % Chloride (98-107) mmol/L BUN (7-17) mg/dL Glucose (74-99) mg/dL POC Glucose (mg/dL) 138 H 122 H (75-99) mg/dL Calcium (8.4-10.2) mg/dL Ferritin (10.0-291.0) ng/mL ALT (4-34) U/L Total Protein (6.3-8.2) g/dL Albumin (3.5-5.0) g/dL Coronavirus (PCR) (Not Detected) 01/29/20 01/29/20 01/29/20 Range/Units 04:45 05:08 05:13 RBC (3.80-5.40) m/uL Hgb (11.4-16.0) gm/dL Hct (34.0-46.0) % RDW (11.5-15.5) % Plt Count (150-450) k/uL Lymphocytes # (1.0-4.8) k/uL ABG HCO3 27 H (21-25) mmol/L ABG Total CO2 29 H (19-24) mmol/L ABG O2 Saturation 98.9 H (94-97) % Chloride 110 H (98-107) mmol/L BUN 40 H (7-17) mg/dL Glucose 177 H (74-99) mg/dL POC Glucose (mg/dL) 203 H (75-99) mg/dL Calcium 7.9 L (8.4-10.2) mg/dL Ferritin (10.0-291.0) ng/mL ALT 48 H (4-34) U/L Total Protein 3.9 L (6.3-8.2) g/dL Albumin 1.8 L (3.5-5.0) g/dL Coronavirus (PCR) (Not Detected) Assessment and Plan Plan: Assessment: #1. Acute hypoxic rest or a failure with bilateral pneumonia and ARDS secondary to COVID 19 pneumonitis, completed course of her Remdesivir on 01/16/2020, received 1 unit of convalescent plasma on 01/13/2020, intubated on 01/16/2020 #2. Acute right-sided pulmonary embolism and hypercoagulability secondary to COVID 19 infection, currently on Lovenox at 60 mg twice daily #3. Acute blood loss anemia related to bleeding from the triple lumen insertion site, requiring transfusion with 1 unit of PRBC on 01/26/2020, and a dose of Lovenox was adjusted #4. Recurrent atrial fibrillation, maintained on amiodarone, with the on Lovenox #5. Remote history of DVTs, and patient was on the Route on an outpatient basis #6. Acute kidney injury #7. Elevated d-dimer related to COVID 19 infection, and pulmonary embolism #8. Hypercoagulable state #9. Hypernatremia secondary to free water deficit, improved #10. Suspect acute toxic metabolic encephalopathy related to COVID 19 infection #11. Acute urinary tract infection with urine cultures positive for E. coli and Enterococcus faecalis, currently on cefepime Plan: Continue current vent settings, patient has failed another spontaneous awakening trial, she was not even able to get to the spontaneous breathing trial, she has not made significant improvement in terms of oxygenation or weaning from the mechanical ventilator, she has completed a course of Remdesivir, she has received extended course of Decadron, she received 1 unit of Colestid plasma, continue supportive medical care, continue nutritional support. Continue anticoagulation. We'll hold off on transfusing right now. Need to touch base with the family, to address her CODE STATUS. Overall prognosis is very guarded, continue supportive medical treatment, we do not recommend full CODE STATUS in case of her clinical decline I performed a history & physical examination of the patient and discussed their management with my nurse practitioner, Maria T Rushing. I reviewed the nurse practitioner's note and agree with the documented findings and plan of care. Lung sounds are positive for diminished breath sounds. The findings and the impression was discussed with the patient. I attest to the documentation by the nurse practitioner. Time with Patient: Greater than 30
[2020-01-29 11:30] LABS: Glucose,Whole Blood 110 mg/dL (75-99)
--- NOTE | 2020-01-29 11:31 | P.PN ---
Subjective Progress Note Date: 01/29/20 Principal diagnosis: COVID pneumonia 79-year-old female history of DVT who presented to the emergency department with complaints of shortness of breath. She initially had a DVT and stopped her Xarelto as she was concerned about an interaction with the azithromycin she had been prescribed due to COVID 19. In the ER she underwent an extensive evaluation. She is on have a pulmonary embolism was started on a heparin drip, she was found have Covid 19 pneumonia and was started on steroids, zinc, vitamin C, and melatonin. Pulmonary was consulted. She was admitted to the selective care unit. She was found to be in atrial fibrillation which was new onset. Cardiology was consulted. She was started on low-dose metoprolol. On the evening of 01/09 she went and A. fib with RVR was started on Cardizem drip. On the morning of 01/10 she was seen by cardiology Cardizem drip was discontinued and she was started on metoprolol 25 mg twice a day. Her oxygen requirements were increasing throughout her hospital stay. Pulmonary determined she was not a candidate for aggressive ears are Covid symptoms that started 2 weeks prior. Case had been discussed with vascular who felt she was not a candidate for catheter directed TPA/EKOS. On 01/11 she was seen by pulmonary and started on Remedesivir. She was transferred to the ICU overnight on 01/11 due to progressive hypoxemia. She required aerosol as well as a nonrebreather. By the morning of 01/14 she had received 2 units of convalescent plasma. On the morning of 01/15 she was requiring BiPAP. She had a triple-lumen catheter placed. She failed BiPAP therapy and was subsequently intubated overnight on . After intubation she again went into A. fib with RVR and required a Cardizem drip for a short time but then converted to normal sinus rhythm. She did require levothyroxine secondary to hypotension. She again went into A. fib with RVR on 01/17 and secondary to her hypotension she was started on amiodarone. Levophed weaned off by 01/18 and she was able to be switched to oral amiodarone. During her ICU stay her heparin drip was transitioned to Lovenox subcutaneous. She still has not been able to wean from the ventilator. PEEP decreased 01/21. She has following commands but very weak on 01/22. On 01/23 her sedation was stopped and she did become agitated requiring resedation. Her HgB d ropped for unknown reason on 01/24 and was felt to maybe be due to leaking from her around her subclavian cath. She was given 1 unit pRBC. Attempted to wean sedation but she became agitated. On 01/26 required increasing PPE and was placed back on levophed. 01/28: Patient failed weaning attempt yesterday. She was placed back on sedation. Attempt was not repeated this morning. 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 Objective - Vital Signs Vital signs: Vital Signs Temp 97.9 F 01/29/20 04:00 Pulse 105 H 01/29/20 08:00 Resp 25 H 01/29/20 08:00 BP 88/60 01/28/20 17:00 Pulse Ox 92 L 01/29/20 08:00 Intake & Output 01/28/20 01/29/20 01/29/20 18:59 06:59 18:59 Intake Total 4187.147 9579.840 181 Output Total 2200 1600 100 Balance -709.188 46.840 81 Weight 91.7 kg 91.7 kg Intake: IV 276 276 23 .9 @ KVO 240 240 20 pressure bags 36 36 3 Intake, IV Titration 418.812 306.840 100 Amount Norepinephrine 4 mg In 295.243 30.409 Sodium Chloride 0.9% 250 ml @ 0.05 MCG/KG/MIN 17. 377 mls/hr IV .[id number] [facility] Rx#:[id number] propofoL 1,000 mg In 123.569 276.431 100 Empty Bag 1 bag @ Titrate IV .Q0M [facility] Rx#: [id number] Tube Feeding 696 464 58 Other 100 600 Output: Urine 2200 1600 100 Other: Voiding Method Indwelling Catheter Indwelling Catheter ABP, PAP, CO, CI - Last Documented Arterial Blood Pressure 122/65 - Exam General: Ill-appearing, no distress, appears at stated age Derm: warm, dry, Head: atraumatic, normocephalic, symmetric Eyes: EOMI, no lid lag, anicteric sclera Mouth: no lip lesion, mucus membranes moist Cardiovascular: S1S2 reg, no murmur, positive posterior tibial pulse bilateral, Lungs: Coarse breath sounds bilateral, no rhonchi, no rales, no accessory muscle use Abdominal: soft, nontender to palpation, no guarding, no appreciable organomegaly Ext: no gross muscle atrophy, diffuse anasarca (improving), no contractures Neuro: No gross muscle atrophy, no tremors noted, moving right fingers and bilateral toes Psych: lethargic but open eyes - Labs CBC & Chem 7: 01/29/20 04:45 01/29/20 04:45 Labs: Abnormal Lab Results - Last 24 Hours (Table) 01/26/20 01/28/20 01/28/20 Range/Units 21:35 13:22 17:49 RBC (3.80-5.40) m/uL Hgb (11.4-16.0) gm/dL Hct (34.0-46.0) % RDW (11.5-15.5) % Plt Count (150-450) k/uL Lymphocytes # (1.0-4.8) k/uL ABG HCO3 (21-25) mmol/L ABG Total CO2 (19-24) mmol/L ABG O2 Saturation (94-97) % Chloride (98-107) mmol/L BUN (7-17) mg/dL Glucose (74-99) mg/dL POC Glucose (mg/dL) 154 H 138 H (75-99) mg/dL Calcium (8.4-10.2) mg/dL ALT (4-34) U/L Total Protein (6.3-8.2) g/dL Albumin (3.5-5.0) g/dL Coronavirus (PCR) Detected A (Not Detected) 01/28/20 01/29/20 01/29/20 Range/Units 23:56 04:45 04:45 RBC 2.13 L (3.80-5.40) m/uL Hgb 6.8 L* (11.4-16.0) gm/dL Hct 20.7 L (34.0-46.0) % RDW 17.1 H (11.5-15.5) % Plt Count 106 L (150-450) k/uL Lymphocytes # 0.3 L (1.0-4.8) k/uL ABG HCO3 (21-25) mmol/L ABG Total CO2 (19-24) mmol/L ABG O2 Saturation (94-97) % Chloride 110 H (98-107) mmol/L BUN 40 H (7-17) mg/dL Glucose 177 H (74-99) mg/dL POC Glucose (mg/dL) 122 H (75-99) mg/dL Calcium 7.9 L (8.4-10.2) mg/dL ALT 48 H (4-34) U/L Total Protein 3.9 L (6.3-8.2) g/dL Albumin 1.8 L (3.5-5.0) g/dL Coronavirus (PCR) (Not Detected) 01/29/20 01/29/20 Range/Units 05:08 05:13 RBC (3.80-5.40) m/uL Hgb (11.4-16.0) gm/dL Hct (34.0-46.0) % RDW (11.5-15.5) % Plt Count (150-450) k/uL Lymphocytes # (1.0-4.8) k/uL ABG HCO3 27 H (21-25) mmol/L ABG Total CO2 29 H (19-24) mmol/L ABG O2 Saturation 98.9 H (94-97) % Chloride (98-107) mmol/L BUN (7-17) mg/dL Glucose (74-99) mg/dL POC Glucose (mg/dL) 203 H (75-99) mg/dL Calcium (8.4-10.2) mg/dL ALT (4-34) U/L Total Protein (6.3-8.2) g/dL Albumin (3.5-5.0) g/dL Coronavirus (PCR) (Not Detected) Assessment and Plan Plan: Covid 19 pneumonia with acute hypoxic respiratory failure, ARDS - Completed Remdesivir on 01/15 - s/p Dexamethasone day #17 days completed - Status post convalescent plasma 01/14 - Pulmonary recommending DNR code status, will need to discuss with family - Continue zinc, vitamin C, vitamin D, Pepcid, and melatonin Anemia, undetermined cause, thrombocytopenia, likely reactive - 1 unit pRBC 01/25/2020 - stools is brown continue to follow - suspect due to slow leak from TLC site. - Lovenox. dose adjusted by pulm for bleeding - Pulm wants to hold off transfusion at this point DIffuse Anasarca - Lasix X 1 given 01/22, repeated 01/25 Pulmonary embolus without right ventricular strain, history of prior DVT - Lovenox P. A fib with RVR - lovenox, amio - now in NSR Entercoccus and E coli UTI - Levaquin D # 09/01 of treatment Thrombocytopenia KALYAN due to ATN with resultant metabolic acidosis and hyperphosphatemia, resolved Septic shock, resolved Hypokalemia, resolved DVT prophylaxis: Lovenox for PE Discussed with: Nursing Anticipated discharge: undetermined Anticipated discharge place: [facility] A total of 25 minutes was spent on the care of this complex patient more than 50% of the time was spent in counseling and care coordination.
[2020-01-29] MEDS: CLEVIDIPINE BUTYRATE 25 MG in EMPTY BAG 1 BAG IV SCH (13:43)
[2020-01-29] MEDS: LEVOFLOXACIN 500MG-D5W PMX 500 MG in DEXTROSE/WATER 1 100ML.BAG IVPB SCH (15:29)
[2020-01-29 17:43] LABS: Glucose,Whole Blood 109 mg/dL (75-99)
[2020-01-29] MEDS: NOREPINEPHRINE 4 MG in SODIUM CHLORIDE 0.9% 250 ML IV SCH ×2 (17:44→17:45)
[2020-01-29] MEDS: MELATONIN 5 MG TABLET PO SCH (20:42)
[2020-01-29 23:40] LABS: Glucose,Whole Blood 131 mg/dL (75-99)
[2020-01-30] MEDS: INSULIN ASPART (NovoLOG) 100 UNIT/ML VIAL SQ SCH ×4 (00:03→20:10)
[2020-01-30 04:48] LABS: Anisocytosis Slight; Basophils % (A) 0 %; Eosinophils # (A) 0.5 k/uL (0-0.7); Eosinophils % (A) 7 %; HCT 23.5 % (34.0-46.0); HGB 7.6 gm/dL (11.4-16.0); Hypochromasia Moderate; Lymphocytes # (A) 0.7 k/uL (1.0-4.8); Lymphocytes % (A) 9 %; MCH 31.8 pg (25.0-35.0); MCHC 32.4 g/dL (31.0-37.0); MCV 98.2 fL (80.0-100.0); Macrocytosis Slight; Mean Platelet Volume 10.6; Monocytes # (A) 0.2 k/uL (0-1.0); Monocytes % (A) 2 %; Neutrophils # (A) 5.7 k/uL (1.3-7.7); Neutrophils % (A) 81 %; Platelet Count 138 k/uL (150-450); RBC 2.39 m/uL (3.80-5.40); RDW 17.6 % (11.5-15.5); WBC 7.1 k/uL (3.8-10.6)
[2020-01-30 05:01] LABS: ALT 46 U/L (4-34); AST 30 U/L (14-36); African American GFR (CKD) >90 (>60 ml/min/1.73 sqM); Alkaline Phosphatase 61 U/L (38-126); Anion Gap -3 mmol/L; Blood Urea Nitrogen 39 mg/dL (7-17); C Reactive Protein 64.3 mg/L (<10.0); Calcium 8.1 mg/dL (8.4-10.2); Carbon Dioxide 31 mmol/L (22-30); Chloride 110 mmol/L (98-107); Glucose 115 mg/dL (74-99); LDH 755 U/L (313-618); Non-African American GFR(CKD) >90 (>60 ml/min/1.73 sqM); Potassium 3.9 mmol/L (3.5-5.1); Sodium 138 mmol/L (137-145); Total Bilirubin 0.4 mg/dL (0.2-1.3); Total Protein 4.3 g/dL (6.3-8.2)
[2020-01-30] MEDS ORDERED: POTASSIUM BICARBONATE/CIT AC 20 MEQ TABLET.EFF PO ONE (05:24)
[2020-01-30 05:34] LABS: ABG PCO2 42 mmHg (35-45); ABG PH 7.43 (7.35-7.45); ABG PO2 81 mmHg (83-108); Allen Test Performed? Yes
[2020-01-30 05:35] LABS: ABG Base Excess 4.4 mmol/L; ABG HCO3 28 mmol/L (21-25); ABG TCO2 30 mmol/L (19-24)
[2020-01-30 06:14] LABS: Glucose,Whole Blood 131 mg/dL (75-99)
--- NOTE | 2020-01-30 07:09 | XR ---
EXAMINATION TYPE: XR chest 1V portable DATE OF EXAM: 01/30/2020 CLINICAL HISTORY: Difficulty breathing progress study. TECHNIQUE: Single AP portable semiupright view of the chest is obtained. COMPARISON: Chest x-ray from one day earlier and older studies. FINDINGS: Stable endotracheal and coiled orogastric tube into hiatal hernia. Underlying slight scoliotic curvature redemonstrated. Cardiac silhouette size stable and mildly enlar ged. Persistent multifocal bilateral airspace opacities on background chronic parenchymal change. IMPRESSION: Persistent bilateral multifocal infiltrates consistent with covid -19 infection. No signi ficant change from most recent x-ray.
[2020-01-30] MEDS: ALBUTEROL HFA INHALER INHALATION SCH ×4 (08:18→21:12)
[2020-01-30] MEDS: NOREPINEPHRINE 4 MG in SODIUM CHLORIDE 0.9% 250 ML IV SCH ×2 (08:52→23:36)
[2020-01-30] MEDS: CHLORHEXIDINE GLUCONATE 15 ML CUP MUCOUS MEM SCH ×2 (09:10→21:08)
[2020-01-30] MEDS: ASCORBIC ACID 500 MG TAB PO SCH (09:10)
[2020-01-30] MEDS: ENOXAPARIN 60 MG/0.6 ML SYRINGE SQ SCH ×2 (09:10→21:08)
[2020-01-30] MEDS: ZINC SULFATE 220 MG CAP PO SCH (09:10)
[2020-01-30] MEDS: METOPROLOL TARTRATE 50 MG TAB PO SCH ×2 (09:11→21:08)
[2020-01-30] MEDS: FAMOTIDINE 20 MG TAB PO SCH (09:11)
[2020-01-30] MEDS: AMIODARONE 200 MG TAB PO SCH ×2 (09:11→21:08)
[2020-01-30] MEDS: CHOLECALCIFEROL 1,000 UNIT TAB PO SCH (09:11)
[2020-01-30 09:33] LABS: Ferritin 373.2 ng/mL (10.0-291.0)
--- NOTE | 2020-01-30 10:07 | P.PN ---
Subjective Progress Note Date: 01/30/20 Principal diagnosis: COVID 19 pneumonia This is 79-year-old white female patient who was admitted to the hospital on 01/09/2020 with COVID 19 pneumonia, and the chest x-ray showing diffuse bilateral pulmonary infiltrates. In addition CT angios of the chest showed pulmonary embolism involving mainly the right sided pulmonary artery branches. Patient continued to worsen on supportive medical treatment, and it went on to be intubated on 01/16/2020. Today on 01/26/2020 she remains intubated and sedated, on assist-control mode of ventilation with a rate of 20, tidal volume 450, FiO2 of 50% and PEEP of 10, this morning his blood gases showed a pO2 of 99, pCO2 40, and pH of 7.45, this was done on the above-mentioned blood gases, and the PEEP will be dropped down to 5, IV 0.9 normal saline at 10 ML per hour, Diprivan and is currently at 10 mics per kilo per minute, and vital high protein is 4 nutritional support at a rate of 55 with a goal of 55. Patient has been having awakening trials on the daily basis, however she is usually very hypertensive and tachycardic during the sedation holidays, and intermittently required clevidipine for blood pressure management. Patient has completed her Remdesivir on 01/16/2020, and she was given 1 unit of convalescent plasma on 01/14/2020. She remains on Lovenox, currently at 60 mg every 12 hours and the dose wet To be adjusted yesterday in view of some bleeding from the right subclavian triple-lumen insertion site, and there was a drop in hemoglobin to 6.4 requiring transfusion with 1 unit of packed red blood cell, she continues on IV steroids will be discontinued. On 01/27/2020 patient seen in follow-up in intensive care unit, she remains intubated, sedated on mechanical ventilator, with current vent settings of assist control mode of ventilation with a rate of 20, tidal on this 450, FiO2 of 50% and PEEP of 5, this morning his blood gases showed pO2 of 51, pCO2 of 32, and pH of 7.53. We will increase the PEEP to 10. Yesterday patient was given sedation holiday, and spontaneous breathing trial however she quickly failed spontaneous breathing trial, with signs of increased heart rate, increased respiratory rate and hypertension, requiring clevidipine infusion, today's chest x-ray shows bilateral infiltrates stable in appearance, vital signs have been stable, no vasoactive drips, she is in sinus mechanism, at times tachycardic especially during spontaneous awakening trials. She remains on anticoagulation currently on Lovenox 60 mg twice daily. Today's labs have been reviewed, sure what blood cell count of 10.5, hemoglobin of 7.5, platelet count is 109, sodium of 135, potassium 3.8, chloride is 109, B UN of 49, creatinine is 0.68. Patient is receiving nutrition in the form of vital high protein at 58 with a goal of 58. On 01/29/2020 patient seen in follow-up in intensive care unit, she remains intubated, and sedated on mechanical ventilator, current vent settings are assist-control mode of ventilation with a rate of 25, tidal volume 350, FiO2 of 50% and PEEP of 10, blood gases show pO2 of 88, pCO2 of 43, and pH of 7.41. Currently on 0.9 normal saline at KVO, Diprivan is a 50 mics per kilo per minute, Levaphed at 1.8 mics per minute, nutritional support with vital high protein at 58 with a goal of 15, yesterday patient was supposed to have a daily interruption of sedation and spontaneous breathing trial with pressure support of 10. Patient failed spontaneous awakening trial yesterday, and she never to the spontaneous breathing trial, came very tachypneic, started desaturating, with increase of heart rate and blood pressure. She was placed back on sedation. Remains on anticoagulation, she remains on Pepcid, she has completed her Remdesivir, she received 1 unit of convalescent plasma, she has received an extended course of steroids. She has not made significant improvement in terms of weaning. On 01/30/2020 patient seen in follow-up in intensive care unit, she remains sedated, and intubated on mechanical ventilator, with assist-control mode of ventilation with a rate of 25, tidal vital 350, FiO2 of 50% and PEEP of 10, this morning's blood gases show pO2 of 81, pCO2 42, and pH of 7.44, IV fluids include 0.9 normal saline at a rate of 20 ML per hour, Diprivan and is at 50 mics per kilo per minute, levo fed is on hold, she is receiving nutritional support with vital high protein at 43 with a goal of 43. Yesterday she had the daily interruption of sedation which she did not tolerate very well, she failed very quickly, started becoming very tachypneic, tachycardic, desaturating, and had to be received daily. Today's chest x-ray has been reviewed showing persistent bilateral multifocal infiltrates consistent with COVID19 infection, stable in appearance. Today's labs have been reviewed, showing white blood cell count is 7.1, hemoglobin is 7.6, followed d-dimer is trending down, down to 2.46, sodium is 1:30, potassium 3.9, chloride is 110, CO2 31, B1 of 39, creatinine 0.51, LDH and CRP are trending down although still remain elevated. Cultures showed E. coli and Enterococcus faecalis, blood cultures have been negative. She is on Levaquin for empiric antibiotic coverage, she is on Lovenox for anticoagulation, she is on vitamin C, zinc, she has completed her course of steroids, she has completed her Remdesivir, she is status post transfusion with 1 unit of convalescent plasma. Objective - Vital Signs Vital signs: Vital Signs Temp 97.6 F 01/30/20 04:00 Pulse 61 01/30/20 07:00 Resp 28 H 01/30/20 07:00 BP 125/69 01/30/20 06:00 Pulse Ox 94 L 01/30/20 07:00 Intake & Output 01/29/20 01/30/20 01/30/20 18:59 06:59 18:59 Intake Total 1701.251 8584.482 131.565 Output Total 1380 1280 60 Balance 522.588 532.482 71.565 Weight 91.7 kg 91.3 kg Intake: IV 288 276 23 .9 @ KVO 240 240 20 pressure bags 48 36 3 Intake, IV Titration 378.588 463.482 65.565 Amount Norepinephrine 4 mg In 86.888 77.330 Sodium Chloride 0.9% 250 ml @ 0.05 MCG/KG/MIN 17. 377 mls/hr IV .[id number] [facility] Rx#:[id number] propofoL 1,000 mg In 291.7 386.152 65.565 Empty Bag 1 bag @ Titrate IV .Q0M [facility] Rx#: [id number] Tube Feeding 576 473 43 Other 660 600 Output: Urine 780 1280 60 Stool 600 Other: Voiding Method Indwelling Catheter Indwelling Catheter ABP, PAP, CO, CI - Last Documented Arterial Blood Pressure 100/55 - Exam GENERAL EXAM: Sedated, intubated, 79-year-old comfortable, on assist control mode of ventilation with the FiO2 of 50%, and PEEP of 10 in no apparent distress. HEAD: Normocephalic/atraumatic. EYES: Normal reaction of pupils, equal size. Conjunctiva pink, sclera white. NOSE: Clear with pink turbinates. THROAT: No erythema or exudates. NECK: No masses, no JVD, no thyroid enlargement, no adenopathy. CHEST: No chest wall deformity. Symmetrical expansion. LUNGS: Equal air entry with no crackles, wheeze, rhonchi or dullness. CVS: Irregular rate and rhythm, normal S1 and S2, no gallops, no murmurs, no rubs ABDOMEN: Soft, nontender. No hepatosplenomegaly, normal bowel sounds, no guarding or rigidity. EXTREMITIES: No clubbing, no edema, no cyanosis, 2+ pulses and upper and lower extremities. MUSCULOSKELETAL: Muscle strength and tone normal. SPINE: No scoliosis or deformity SKIN: No rashes CENTRAL NERVOUS SYSTEM: Sedated No focal deficits, tone is normal in all 4 extremities. - Labs CBC & Chem 7: 01/30/20 04:30 01/30/20 04:30 Labs: Abnormal Lab Results - Last 24 Hours (Table) 01/29/20 01/29/20 01/29/20 Range/Units 11:29 17:41 23:38 RBC (3.80-5.40) m/uL Hgb (11.4-16.0) gm/dL Hct (34.0-46.0) % RDW (11.5-15.5) % Plt Count (150-450) k/uL Lymphocytes # (1.0-4.8) k/uL D-Dimer (<0.60) mg/L FEU ABG pO2 (83-108) mmHg ABG HCO3 (21-25) mmol/L ABG Total CO2 (19-24) mmol/L ABG O2 Saturation (94-97) % Chloride (98-107) mmol/L Carbon Dioxide (22-30) mmol/L BUN (7-17) mg/dL Creatinine (0.52-1.04) mg/dL Glucose (74-99) mg/dL POC Glucose (mg/dL) 110 H 109 H 131 H (75-99) mg/dL Calcium (8.4-10.2) mg/dL Ferritin (10.0-291.0) ng/mL ALT (4-34) U/L Lactate Dehydrogenase (313-618) U/L C-Reactive Protein (<10.0) mg/L Total Protein (6.3-8.2) g/dL Albumin (3.5-5.0) g/dL 01/30/20 01/30/20 01/30/20 Range/Units 04:30 04:30 04:30 RBC 2.39 L (3.80-5.40) m/uL Hgb 7.6 L (11.4-16.0) gm/dL Hct 23.5 L (34.0-46.0) % RDW 17.6 H (11.5-15.5) % Plt Count 138 L (150-450) k/uL Lymphocytes # 0.7 L (1.0-4.8) k/uL D-Dimer 2.46 H (<0.60) mg/L FEU ABG pO2 (83-108) mmHg ABG HCO3 (21-25) mmol/L ABG Total CO2 (19-24) mmol/L ABG O2 Saturation (94-97) % Chloride 110 H (98-107) mmol/L Carbon Dioxide 31 H (22-30) mmol/L BUN 39 H (7-17) mg/dL Creatinine 0.51 L (0.52-1.04) mg/dL Glucose 115 H (74-99) mg/dL POC Glucose (mg/dL) (75-99) mg/dL Calcium 8.1 L (8.4-10.2) mg/dL Ferritin 373.2 H (10.0-291.0) ng/mL ALT 46 H (4-34) U/L Lactate Dehydrogenase 755 H (313-618) U/L C-Reactive Protein 64.3 H (<10.0) mg/L Total Protein 4.3 L (6.3-8.2) g/dL Albumin 2.0 L (3.5-5.0) g/dL 01/30/20 01/30/20 Range/Units 05:00 06:12 RBC (3.80-5.40) m/uL Hgb (11.4-16.0) gm/dL Hct (34.0-46.0) % RDW (11.5-15.5) % Plt Count (150-450) k/uL Lymphocytes # (1.0-4.8) k/uL D-Dimer (<0.60) mg/L FEU ABG pO2 81 L (83-108) mmHg ABG HCO3 28 H (21-25) mmol/L ABG Total CO2 30 H (19-24) mmol/L ABG O2 Saturation 99.0 H (94-97) % Chloride (98-107) mmol/L Carbon Dioxide (22-30) mmol/L BUN (7-17) mg/dL Creatinine (0.52-1.04) mg/dL Glucose (74-99) mg/dL POC Glucose (mg/dL) 131 H (75-99) mg/dL Calcium (8.4-10.2) mg/dL Ferritin (10.0-291.0) ng/mL ALT (4-34) U/L Lactate Dehydrogenase (313-618) U/L C-Reactive Protein (<10.0) mg/L Total Protein (6.3-8.2) g/dL Albumin (3.5-5.0) g/dL Assessment and Plan Plan: Assessment: #1. Acute hypoxic rest or a failure with bilateral pneumonia and ARDS secondary to COVID 19 pneumonitis, completed course of her Remdesivir on 01/16/2020, received 1 unit of convalescent plasma on 01/13/2020, intubated on 01/16/2020 #2. Acute right-sided pulmonary embolism and hypercoagulability secondary to COVID 19 infection, currently on Lovenox at 60 mg twice daily #3. Acute blood loss anemia related to bleeding from the triple lumen insertion site, requiring transfusion with 1 unit of PRBC on 01/26/2020, and a dose of Lovenox was adjusted #4. Recurrent atrial fibrillation, maintained on amiodarone, with the on Lovenox #5. Remote history of DVTs, and patient was on the Route on an outpatient basis #6. Acute kidney injury #7. Elevated d-dimer related to COVID 19 infection, and pulmonary embolism #8. Hypercoagulable state #9. Hypernatremia secondary to free water deficit, improved #10. Suspect acute toxic metabolic encephalopathy related to COVID 19 infection #11. Acute urinary tract infection with urine cultures positive for E. coli and Enterococcus faecalis, currently on cefepime Plan: We will give the patient another spontaneous awakening trial although she failed to yesterday's again, patient has not been able to tolerate any spontaneous breathing trials. Today's chest x-ray has been reviewed showing stable findings of bilateral infiltrates, no major change, continue with the current vent settings, continue anticoagulation, continue antibiotics, vital signs have been stable, patient has been weaned off the vasopressor support, continue nutritional support. Patient has been maximized on medical treatment, and has not made significant improvement. We spoke to her today, and and described the situation with the lack of major improvement, her condition is still critical but stable, not been able to tolerate any weaning. The insisted on full CODE STATUS, we will consult surgical services, Dr. Hunt for tracheostomy and PEG tube placement I performed a history & physical examination of the patient and discussed their management with my nurse practitioner, Maria T Rushing. I reviewed the nurse practitioner's note and agree with the documented findings and plan of care. Lung sounds are positive for diminished breath sounds. The findings and the impression was discussed with the patient. I attest to the documentation by the nurse practitioner. Time with Patient: Greater than 30
[2020-01-30] MEDS: CLEVIDIPINE BUTYRATE 25 MG in EMPTY BAG 1 BAG IV SCH (11:12)
[2020-01-30 11:13] LABS: Glucose,Whole Blood 121 mg/dL (75-99)
[2020-01-30] MEDS ORDERED: LIDOCAINE 1% INJ 10MG/ML (20 ML MDV) SQ ONE (11:30)
--- NOTE | 2020-01-30 11:54 | P.PN ---
Subjective Progress Note Date: 01/30/20 Principal diagnosis: COVID pneumonia Patient remains sedated on the ventilator. No significant change in her condition since last night. No overnight events. Objective - Vital Signs Vital signs: Vital Signs Temp 97.6 F 01/30/20 04:00 Pulse 61 01/30/20 07:00 Resp 28 H 01/30/20 07:00 BP 125/69 01/30/20 06:00 Pulse Ox 94 L 01/30/20 07:00 Intake & Output 01/29/20 01/30/20 01/30/20 18:59 06:59 18:59 Intake Total 8093.628 8520.482 131.565 Output Total 1380 1280 60 Balance 522.588 532.482 71.565 Weight 91.7 kg 91.3 kg Intake: IV 288 276 23 .9 @ KVO 240 240 20 pressure bags 48 36 3 Intake, IV Titration 378.588 463.482 65.565 Amount Norepinephrine 4 mg In 86.888 77.330 Sodium Chloride 0.9% 250 ml @ 0.05 MCG/KG/MIN 17. 377 mls/hr IV .[id number] ANSELMO Rx#:[id number] propofoL 1,000 mg In 291.7 386.152 65.565 Empty Bag 1 bag @ Titrate IV .Q0M ANSELMO Rx#: [id number] Tube Feeding 576 473 43 Other 660 600 Output: Urine 780 1280 60 Stool 600 Other: Voiding Method Indwelling Catheter Indwelling Catheter ABP, PAP, CO, CI - Last Documented Arterial Blood Pressure 100/55 - Exam General: Ill-appearing, no distress, appears at stated age Derm: warm, dry, Head: atraumatic, normocephalic, symmetric Eyes: EOMI, no lid lag, anicteric sclera Mouth: no lip lesion, mucus membranes moist Cardiovascular: S1S2 reg, no murmur, positive posterior tibial pulse bilateral, Lungs: Coarse breath sounds bilateral, no rhonchi, no rales, no accessory muscle use Abdominal: soft, nontender to palpation, no guarding, no appreciable org anomegaly Ext: no gross muscle atrophy, diffuse anasarca (improving), no contractures Neuro: No gross muscle atrophy, no tremors noted, moving right fingers and bilateral toes Psych: lethargic but open eyes - Labs CBC & Chem 7: 01/30/20 04:30 01/30/20 04:30 Labs: Abnormal Lab Results - Last 24 Hours (Table) 01/29/20 01/29/20 01/30/20 Range/Units 17:41 23:38 04:30 RBC (3.80-5.40) m/uL Hgb (11.4-16.0) gm/dL Hct (34.0-46.0) % RDW (11.5-15.5) % Plt Count (150-450) k/uL Lymphocytes # (1.0-4.8) k/uL D-Dimer 2.46 H (<0.60) mg/L FEU ABG pO2 (83-108) mmHg ABG HCO3 (21-25) mmol/L ABG Total CO2 (19-24) mmol/L ABG O2 Saturation (94-97) % Chloride (98-107) mmol/L Carbon Dioxide (22-30) mmol/L BUN (7-17) mg/dL Creatinine (0.52-1.04) mg/dL Glucose (74-99) mg/dL POC Glucose (mg/dL) 109 H 131 H (75-99) mg/dL Calcium (8.4-10.2) mg/dL Ferritin (10.0-291.0) ng/mL ALT (4-34) U/L Lactate Dehydrogenase (313-618) U/L C-Reactive Protein (<10.0) mg/L Total Protein (6.3-8.2) g/dL Albumin (3.5-5.0) g/dL 01/30/20 01/30/20 01/30/20 Range/Units 04:30 04:30 05:00 RBC 2.39 L (3.80-5.40) m/uL Hgb 7.6 L (11.4-16.0) gm/dL Hct 23.5 L (34.0-46.0) % RDW 17.6 H (11.5-15.5) % Plt Count 138 L (150-450) k/uL Lymphocytes # 0.7 L (1.0-4.8) k/uL D-Dimer (<0.60) mg/L FEU ABG pO2 81 L (83-108) mmHg ABG HCO3 28 H (21-25) mmol/L ABG Total CO2 30 H (19-24) mmol/L ABG O2 Saturation 99.0 H (94-97) % Chloride 110 H (98-107) mmol/L Carbon Dioxide 31 H (22-30) mmol/L BUN 39 H (7-17) mg/dL Creatinine 0.51 L (0.52-1.04) mg/dL Glucose 115 H (74-99) mg/dL POC Glucose (mg/dL) (75-99) mg/dL Calcium 8.1 L (8.4-10.2) mg/dL Ferritin 373.2 H (10.0-291.0) ng/mL ALT 46 H (4-34) U/L Lactate Dehydrogenase 755 H (313-618) U/L C-Reactive Protein 64.3 H (<10.0) mg/L Total Protein 4.3 L (6.3-8.2) g/dL Albumin 2.0 L (3.5-5.0) g/dL 01/30/20 01/30/20 Range/Units 06:12 11:11 RBC (3.80-5.40) m/uL Hgb (11.4-16.0) gm/dL Hct (34.0-46.0) % RDW (11.5-15.5) % Plt Count (150-450) k/uL Lymphocytes # (1.0-4.8) k/uL D-Dimer (<0.60) mg/L FEU ABG pO2 (83-108) mmHg ABG HCO3 (21-25) mmol/L ABG Total CO2 (19-24) mmol/L ABG O2 Saturation (94-97) % Chloride (98-107) mmol/L Carbon Dioxide (22-30) mmol/L BUN (7-17) mg/dL Creatinine (0.52-1.04) mg/dL Glucose (74-99) mg/dL POC Glucose (mg/dL) 131 H 121 H (75-99) mg/dL Calcium (8.4-10.2) mg/dL Ferritin (10.0-291.0) ng/mL ALT (4-34) U/L Lactate Dehydrogenase (313-618) U/L C-Reactive Protein (<10.0) mg/L Total Protein (6.3-8.2) g/dL Albumin (3.5-5.0) g/dL Assessment and Plan Plan: Covid 19 pneumonia with acute hypoxic respiratory failure, ARDS - Failing weaning trials so far. - Completed Remdesivir on 01/15 - s/p Dexamethasone day #17 days completed - Status post convalescent plasma 01/14 - Pulmonary discussed case with family, patient still full code, surgery called for PEG and trach placement. - Continue zinc, vitamin C, vitamin D, Pepcid, and melatonin Anemia, undetermined cause, thrombocytopenia, likely reactive - 1 unit pRBC 01/25/2020 - Stable now - suspect due to slow leak from TLC site. - Lovenox. dose adjusted by pulm for bleeding - Pulm wants to hold off transfusion at this point DIffuse Anasarca - Lasix X 1 given 01/22, repeated 01/25 Pulmonary embolus without right ventricular strain, history of prior DVT - Lovenox P. A fib with RVR - lovenox, amio - now in NSR Entercoccus and E coli UTI - Levaquin D # 09/01 of treatment Thrombocytopenia KALYAN due to ATN with resultant metabolic acidosis and hyperphosphatemia, resolved Septic shock, resolved Hypokalemia, resolved DVT prophylaxis: Lovenox for PE Discussed with: Nursing, ICU team Anticipated discharge: undetermined Anticipated discharge place: [facility] A total of 25 minutes was spent on the care of this complex patient more than 50% of the time was spent in counseling and care coordination.
--- NOTE | 2020-01-30 12:02 | XR ---
EXAMINATION TYPE: XR chest 1V portable DATE OF EXAM: 01/30/2020 CLINICAL HISTORY: Difficulty breathing progress study. Second PICC line placement. TECHNIQUE: Single AP portable semiupright view of the chest is obtained. COMPARISON: Chest x-ray from earlier today and older studies FINDINGS:Stable endotracheal and coiled orogastric tube into hiatal hernia. Stable right-sided PICC l ine. Cardiac silhouette size stable and mildly enlarged. Persistent multifocal right greater than left indra ateral airspace opacities on background chronic parenchymal change. IMPRESSION: Overall stable findings from most recent x-ray. Persistent bilateral multifocal infiltrat es on background chronic change consistent with covid -19 infection.
--- NOTE | 2020-01-30 12:04 | XR ---
EXAMINATION TYPE: XR chest 1V portable DATE OF EXAM: 01/30/2020 CLINICAL HISTORY: Difficulty breathing progress study. TECHNIQUE: Single AP portable semiupright view of the chest is obtained. COMPARISON: Chest x-ray from earlier today Findings: Stable endotracheal and coiled orogastric tube into hiatal hernia. New right-sided PICC daylin e terminates in SVC. Osseous structures are intact. Cardiac silhouette size stable and mildly enlarged with atheroscleroti c aorta. Persistent multifocal bilateral airspace opacities on background chronic parenchymal change. IMPRESSION: New Right-sided PICC line terminates in SVC. Otherwise no significant interval change.
--- NOTE | 2020-01-30 12:36 | CDI ---
Documentation Clarification Form Date: 01/30/2020 11:34:48 AM From: Nati Henriquez RN CCDS Admit Date: 01/09/2020 12:10:00 PM Patient Name: Paola Johnson Visit Number: [id number] Discharge Date: ATTENTION: The Clinical Documentation Specialists (CDI) and [facility] Coding Staff appreciate your assistance in clarifying documentation. Please respond to the clarification below the line at the bottom and electronically sign. The CDI & [facility] Coding staff will review the response and follow-up if needed. Please note: Queries are made part of the Legal Health Record. If you have any questions, please contact the author of this message via ITS. Dr. Rebecca Banegas UTI is documented in the Internal Medicine progress notes starting 01/18 through 01/28 History/Risk Factors: 79-year-old female presents to the ED with fatigue had contact with persons positive with COVID. Medical History: HTN and DVT Admitted on 01/08 with COVID 19; Pulmonary Embolism; Sepsis Clinical Indicators: 01/16 Vital Signs: B/P 100/43; HR 86; Temp 98.2 F Oral; RR 16; SpO2 95% Mechanical Vent FiO2 60 01/13: Indwelling Urinary Catheter 01/16 WBC: 19.4 01/16 Urine Culture: Escherichia coli 01/25 Cefepime and Unasyn D 07/02 01/28 Internal Medicine Progress Note: Levaquin D 09/01 Treatment: 01/16 Cefempine Ivpb Q12HR d/c 01/25; 01/20 Ampicillin Ivpb Q6HR D/C 01/25; 01/25 Levaquin Ivpb Daily Please document the condition that these clinical indicators signify, whether Present on Admission, and cause if known: UTI due to catheter UTI due to catheter ruled out Other, please specify Unable to determine (Last Revision: November 2016) UTI due to catheter MTDD
--- NOTE | 2020-01-30 13:30 | IR ---
EXAMINATION TYPE: IR cvc insert >=5 years DATE OF EXAM: 01/30/2020 COMPARISON: NONE HISTORY: Pneumonia, needs long-term intravenous access for therapy FINDINGS: Maximal barrier technique was utilized. Hand hygiene obtained with soap and water and alco hol-based hand rub. The skin overlying the right basilic vein was localized with ultrasound and noted to be compressible and patent by ultrasound. An ultrasound image was obtained and submitted on julio ent's chart. Sterile technique utilized with the ultrasound machine. The skin overlying was prepped a nd draped and Lidocaine used for local anesthesia. A skin han was made with a scalpel. Access was gained to the vein under direct ultrasound guidance with a 21-gauge needle and a 0.018 inch wire was advanced. Access site was dilated with a peel-away sheath and the catheter tailored to length, initi ally a single lumen was placed, request was for dual-lumen which was subsequently exchanged over a 0. 018 inch angle Glidewire, repeat chest x-ray performed. Catheter advanced centrally and a post proce dure chest x-ray verified placement with the tip in the superior vena cava. Catheter was fixed to th e skin and a sterile dressing placed. Hemostasis achieved and the catheter was aspirated and flushed with sterile saline. The patient remained in stable condition. IMPRESSION: STATUS POST ULTRASOUND GUIDED PICC LINE PLACEMENT, READY FOR USE. THIS PROCEDURE WAS PER FORMED BY THE UNDERSIGNED.
--- NOTE | 2020-01-30 14:43 | P.GSCN ---
History of Present Illness Consult date: 01/30/20 History of present illness: CHIEF COMPLAINT: Covid 19 pneumonia HISTORY OF PRESENT ILLNESS: This is a 79-year-old female with a known history of DVT. She was admitted to the hospital on 01/09/2020 with Covid 19 pneumonia. Also she had a CT of the chest that was positive for pulmonary embolism. Patient condition worsened and required to be intubated on 01/16/2020. Patient continues to remain intubated and sedated. Patient completed her REM does of your treatment and also did receive convalescent plasma. Patient has had required blood transfusion for her anemia due to bleeding from her right subclavian triple lumen site. Patient has been unable to wean from the vent. She is currently on Levophed and propofol. She did have a temp of 100.7. Surgery has been consulted for possible trach and PEG tube placement. PAST MEDICAL HISTORY: See list. PAST SURGICAL HISTORY: See list. MEDICATIONS: See list. ALLERGIES: See list. SOCIAL HISTORY: No illicit drug use. REVIEW OF SYSTEMS: CONSTITUTIONAL: Denies fever or chills. HEENT: Denies blurred vision, vision changes, or eye pain. Denies hemoptysis CARDIOVASCULAR: Denies chest pain or pressure. RESPIRATORY: No shortness of breath. GASTROINTESTINAL: See HPI for pertinent findings HEMATOLOGIC: Denies bleeding disorders. GENITOURINARY: Denies any blood in urine or increased urinary frequency. SKIN: Denies pruitis. Denies rash. PHYSICAL EXAM: VITAL SIGNS: Reviewed GENERAL: Well-developed in no acute distress. HEENT: No sclera icterus. Extraocular movements grossly intact. Moist buccal mucosa. Head is atraumatic, normocephalic. No nasal drainage. ABDOMEN: Soft. Nondistended. Nontender NEUROLOGIC: Intubated and sedated LABORATORY DATA: WBC 7.1 hemoglobin 7.6 platelets 138 Creatinine 0.51 IMAGING: Chest x-ray overall stable findings. Persistent bilateral multifocal infiltr ates on background chronic changes consistent with Covid 19 infection ASSESSMENT: 1. Acute hypoxic respiratory failure with bilateral pneumonia and ARDS secondary to Covid 19 pneumonitis 2. Severe protein calorie malnutrition 3. Acute Right-sided pulmonary embolism secondary to Covid 19 infection 4. Acute blood loss anemia related to bleeding from the triple lumen site requiring blood transfusion 5. Recurrent atrial fibrillation 6. Suspected acute toxic metabolic encephalopathy secondary to Covid 19 infection PLAN: -Patient is tentatively scheduled for tracheostomy and PEG tube placement with Dr. Gomez on 02/01/2020. We are awaiting family's final decision if they will consent to trach and PEG placement. -Repeat rapid Covid test in preparation for tracheostomy and PEG tube placement -Continue supportive care Thank you for this consultation Physician [employer] note has been reviewed by physician. Signing provider agrees with the documented findings, assessment, and plan of care. Past Medical History Past Medical History: Deep Vein Thrombosis (DVT) History of Any Multi-Drug Resistant Organisms: None Reported Past Surgical History: No Surgical Hx Reported Past Psychological History: No Psychological Hx Reported Smoking Status: Never smoker Past Alcohol Use History: None Reported Past Drug Use History: None Reported - Past Family History Father Family Medical History: Coronary Artery Disease (CAD) Mother Family Medical History: Cancer Medications and Allergies Home Medications Medication Instructions Recorded Confirmed Type Rivaroxaban [Xarelto] 20 mg PO DAILY 01/09/20 01/09/20 History amLODIPine [Norvasc] 5 mg PO DAILY 01/09/20 01/09/20 History Allergies Allergy/AdvReac Type Severity Reaction Status Date / Time lisinopril Allergy Swelling Verified 01/09/20 09:44 Surgical - Exam Vital Signs Temp Pulse Resp BP Pulse Ox 98.8 F 82 24 136/80 90 L 01/09/20 08:29 01/09/20 08:29 01/09/20 08:29 01/09/20 08:29 01/09/20 08:29 Results - Labs 01/30/20 04:30 01/30/20 04:30 Abnormal Lab Results - Last 24 Hours (Table) 01/29/20 01/29/20 01/30/20 Range/Units 17:41 23:38 04:30 RBC (3.80-5.40) m/uL Hgb (11.4-16.0) gm/dL Hct (34.0-46.0) % RDW (11.5-15.5) % Plt Count (150-450) k/uL Lymphocytes # (1.0-4.8) k/uL D-Dimer 2.46 H (<0.60) mg/L FEU ABG pO2 (83-108) mmHg ABG HCO3 (21-25) mmol/L ABG Total CO2 (19-24) mmol/L ABG O2 Saturation (94-97) % Chloride (98-107) mmol/L Carbon Dioxide (22-30) mmol/L BUN (7-17) mg/dL Creatinine (0.52-1.04) mg/dL Glucose (74-99) mg/dL POC Glucose (mg/dL) 109 H 131 H (75-99) mg/dL Calcium (8.4-10.2) mg/dL Ferritin (10.0-291.0) ng/mL ALT (4-34) U/L Lactate Dehydrogenase (313-618) U/L C-Reactive Protein (<10.0) mg/L Total Protein (6.3-8.2) g/dL Albumin (3.5-5.0) g/dL 01/30/20 01/30/20 01/30/20 Range/Units 04:30 04:30 05:00 RBC 2.39 L (3.80-5.40) m/uL Hgb 7.6 L (11.4-16.0) gm/dL Hct 23.5 L (34.0-46.0) % RDW 17.6 H (11.5-15.5) % Plt Count 138 L (150-450) k/uL Lymphocytes # 0.7 L (1.0-4.8) k/uL D-Dimer (<0.60) mg/L FEU ABG pO2 81 L (83-108) mmHg ABG HCO3 28 H (21-25) mmol/L ABG Total CO2 30 H (19-24) mmol/L ABG O2 Saturation 99.0 H (94-97) % Chloride 110 H (98-107) mmol/L Carbon Dioxide 31 H (22-30) mmol/L BUN 39 H (7-17) mg/dL Creatinine 0.51 L (0.52-1.04) mg/dL Glucose 115 H (74-99) mg/dL POC Glucose (mg/dL) (75-99) mg/dL Calcium 8.1 L (8.4-10.2) mg/dL Ferritin 373.2 H (10.0-291.0) ng/mL ALT 46 H (4-34) U/L Lactate Dehydrogenase 755 H (313-618) U/L C-Reactive Protein 64.3 H (<10.0) mg/L Total Protein 4.3 L (6.3-8.2) g/dL Albumin 2.0 L (3.5-5.0) g/dL 01/30/20 01/30/20 Range/Units 06:12 11:11 RBC (3.80-5.40) m/uL Hgb (11.4-16.0) gm/dL Hct (34.0-46.0) % RDW (11.5-15.5) % Plt Count (150-450) k/uL Lymphocytes # (1.0-4.8) k/uL D-Dimer (<0.60) mg/L FEU ABG pO2 (83-108) mmHg ABG HCO3 (21-25) mmol/L ABG Total CO2 (19-24) mmol/L ABG O2 Saturation (94-97) % Chloride (98-107) mmol/L Carbon Dioxide (22-30) mmol/L BUN (7-17) mg/dL Creatinine (0.52-1.04) mg/dL Glucose (74-99) mg/dL POC Glucose (mg/dL) 131 H 121 H (75-99) mg/dL Calcium (8.4-10.2) mg/dL Ferritin (10.0-291.0) ng/mL ALT (4-34) U/L Lactate Dehydrogenase (313-618) U/L C-Reactive Protein (<10.0) mg/L Total Protein (6.3-8.2) g/dL Albumin (3.5-5.0) g/dL Diabetes panel 01/30/20 Range/Units 04:30 Sodium 138 (137-145) mmol/L Potassium 3.9 (3.5-5.1) mmol/L Chloride 110 H (98-107) mmol/L Carbon Dioxide 31 H (22-30) mmol/L BUN 39 H (7-17) mg/dL Creatinine 0.51 L (0.52-1.04) mg/dL Glucose 115 H (74-99) mg/dL Calcium 8.1 L (8.4-10.2) mg/dL AST 30 (14-36) U/L ALT 46 H (4-34) U/L Alkaline Phosphatase 61 (38-126) U/L Total Protein 4.3 L (6.3-8.2) g/dL Albumin 2.0 L (3.5-5.0) g/dL Calcium panel 01/30/20 Range/Units 04:30 Calcium 8.1 L (8.4-10.2) mg/dL Albumin 2.0 L (3.5-5.0) g/dL Pituitary panel 01/30/20 Range/Units 04:30 Sodium 138 (137-145) mmol/L Potassium 3.9 (3.5-5.1) mmol/L Chloride 110 H (98-107) mmol/L Carbon Dioxide 31 H (22-30) mmol/L BUN 39 H (7-17) mg/dL Creatinine 0.51 L (0.52-1.04) mg/dL Glucose 115 H (74-99) mg/dL Calcium 8.1 L (8.4-10.2) mg/dL Adrenal panel 01/30/20 Range/Units 04:30 Sodium 138 (137-145) mmol/L Potassium 3.9 (3.5-5.1) mmol/L Chloride 110 H (98-107) mmol/L Carbon Dioxide 31 H (22-30) mmol/L BUN 39 H (7-17) mg/dL Creatinine 0.51 L (0.52-1.04) mg/dL Glucose 115 H (74-99) mg/dL Calcium 8.1 L (8.4-10.2) mg/dL Total Bilirubin 0.4 (0.2-1.3) mg/dL AST 30 (14-36) U/L ALT 46 H (4-34) U/L Alkaline Phosphatase 61 (38-126) U/L Total Protein 4.3 L (6.3-8.2) g/dL Albumin 2.0 L (3.5-5.0) g/dL
[2020-01-30] MEDS: LEVOFLOXACIN 500MG-D5W PMX 500 MG in DEXTROSE/WATER 1 100ML.BAG IVPB SCH (15:47)
[2020-01-30] MEDS: MELATONIN 5 MG TABLET PO SCH (21:08)
[2020-01-30] MEDS: INSULIN DETEMIR (LEVEMIR) 100 UNIT/ML SYR SQ SCH (21:09)
[2020-01-30 23:23] LABS: Glucose,Whole Blood 139 mg/dL (75-99)
[2020-01-31] MEDS: INSULIN ASPART (NovoLOG) 100 UNIT/ML VIAL SQ SCH ×5 (00:02→23:47)
[2020-01-31 04:40] LABS: ABG Base Excess 4.5 mmol/L; ABG HCO3 29 mmol/L (21-25); ABG Oxygen Saturation 99.5 % (94-97); ABG PCO2 46 mmHg (35-45); ABG PH 7.41 (7.35-7.45); ABG PO2 107 mmHg (83-108); ABG TCO2 31 mmol/L (19-24)
[2020-01-31 04:50] LABS: Anisocytosis Slight; Basophils % (A) 0 %; Eosinophils # (A) 0.4 k/uL (0-0.7); Eosinophils % (A) 7 %; HCT 21.4 % (34.0-46.0); Hypochromasia Moderate; Lymphocytes # (A) 0.5 k/uL (1.0-4.8); Lymphocytes % (A) 10 %; MCH 31.1 pg (25.0-35.0); MCHC 31.6 g/dL (31.0-37.0); MCV 98.4 fL (80.0-100.0); Macrocytosis Slight; Mean Platelet Volume 10.3; Monocytes # (A) 0.2 k/uL (0-1.0); Monocytes % (A) 3 %; Neutrophils # (A) 4.3 k/uL (1.3-7.7); Neutrophils % (A) 79 %; Platelet Count 135 k/uL (150-450); RBC 2.18 m/uL (3.80-5.40); RDW 17.3 % (11.5-15.5); WBC 5.5 k/uL (3.8-10.6)
[2020-01-31 05:00] LABS: HGB 6.8 gm/dL (11.4-16.0)
[2020-01-31 05:03] LABS: ALT 35 U/L (4-34); AST 23 U/L (14-36); African American GFR (CKD) >90 (>60 ml/min/1.73 sqM); Albumin 1.8 g/dL (3.5-5.0); Alkaline Phosphatase 57 U/L (38-126); Anion Gap -3 mmol/L; Blood Urea Nitrogen 34 mg/dL (7-17); C Reactive Protein 68.4 mg/L (<10.0); Carbon Dioxide 32 mmol/L (22-30); Chloride 110 mmol/L (98-107); Glucose 98 mg/dL (74-99); Non-African American GFR(CKD) >90 (>60 ml/min/1.73 sqM); Potassium 4.2 mmol/L (3.5-5.1); Sodium 139 mmol/L (137-145); Total Bilirubin 0.3 mg/dL (0.2-1.3)
[2020-01-31 06:11] LABS: Glucose,Whole Blood 99 mg/dL (75-99)
--- NOTE | 2020-01-31 07:44 | XR ---
EXAMINATION TYPE: XR chest 1V portable DATE OF EXAM: 01/31/2020 Comparison: 01/30/2020 Clinical History: 79-year-old female Intubation/congestion Findings: ET tube is satisfactory. NG tube is looped within the stomach and extending up to 10.8 superiorly pro jecting over the left base, probably within the patient's hiatal hernia. Right PICC tip at the lower SVC. Patchy and confluent groundglass throughout the right greater than left lungs persists without s ignificant change. Patient remains rotated towards the left. Heart is borderline enlarged. Impression: Patchy and confluent right greater than left groundglass infiltrates are similar. NG tube likely selina ins looped in the stomach tip projecting at the left base likely within a hiatal hernia.
[2020-01-31] MEDS: ALBUTEROL HFA INHALER INHALATION SCH ×4 (08:05→20:26)
[2020-01-31] MEDS: ZINC SULFATE 220 MG CAP PO SCH (08:12)
[2020-01-31] MEDS: ENOXAPARIN 60 MG/0.6 ML SYRINGE SQ SCH ×2 (08:12→20:50)
[2020-01-31] MEDS: AMIODARONE 200 MG TAB PO SCH ×2 (08:13→20:50)
[2020-01-31] MEDS: ASCORBIC ACID 500 MG TAB PO SCH (08:13)
[2020-01-31] MEDS: CHOLECALCIFEROL 1,000 UNIT TAB PO SCH (08:13)
[2020-01-31] MEDS: CHLORHEXIDINE GLUCONATE 15 ML CUP MUCOUS MEM SCH ×2 (08:13→20:50)
[2020-01-31] MEDS: FAMOTIDINE 20 MG TAB PO SCH (08:13)
[2020-01-31 09:14] LABS: Ferritin 293.5 ng/mL (10.0-291.0)
--- NOTE | 2020-01-31 10:59 | PN ---
PROGRESS NOTE PULMONARY/CRITICAL CARE PROGRESS NOTE: DATE OF SERVICE: January 31, 2020 This is a 79-year-old female who was admitted back on January 08. She was admitted with a diagnosis of COVID-19 pneumonitis. She unfortunately developed severe hypoxemic respiratory failure and required intubation on January 15. She has been on the ventilator since. The patient did receive both convalescent plasma and Remdesivir. I had a talk with the Mitchell. I talked to him about the possible possibility of tracheostomy and PEG tube placement. I explained the reasons why. The patient has been intubated as I mentioned since the . I have a surgeon willing to do the tracheostomy and PEG tube. Just waiting for final approval from the family. The patient remains on the volume assist-control mode rate of 25, tidal volume 350, FiO2 50% to be dropped to 45%. PEEP of 10, blood gases show a PO2 of 107, pCO2 of 46 and a pH 7.41. The patient remains on propofol at 50 mcg/kg per minute, 0.9 at 20 mL an hour and Vital high-protein at 43 mL an hour which is goal. The patient did have daily interruption of sedation and spontaneous breathing trial and again did very poorly and required placement back on mechanical ventilation. In addition, the patient has a history of acute right-sided pulmonary embolism, acute blood loss anemia, recurrent atrial fibrillation, remote history of DVT, acute kidney injury, hypercoagulable state secondary to Covid 19 infection, hyponatremia, metabolic encephalopathy, and urinary tract infection secondary to both E coli and Enterococcus faecalis. PHYSICAL EXAMINATION: VITAL SIGNS: Current vital signs are reviewed. Temperature is 98, heart rate 77, respiratory rate 35, blood pressure 161/79, saturations are in the mid 90s. GENERAL: Appears in no acute distress. Currently sedated. HEENT: Examination is grossly unremarkable. There is an orally placed endotracheal tube and NG tube. NECK: Supple. Full range of motion. No adenopathy. Neck veins are flat. CARDIOVASCULAR: Examination reveals regular rhythm and rate. Heart rate 77. S1, S2 normal. LUNGS: Reveal diffuse coarse rhonchi. No wheezes. ABDOMEN: Soft. EXTREMITIES are intact. SKIN is without rash. NEUROLOGIC: Examination could not be adequately assessed. LABS: Reviewed. White count 5.5, hemoglobin 6.8, hematocrit 21.4, platelet count 135,000. D- dimer 2.55. Blood gases show a PO2 of 107, pCO2 of 46 and a pH is 7.41. Sodium 139, potassium 4.2, chloride 110, CO2 32, anion gap is -3, BUN and creatinine were 34 and 0.54. Calcium 8, ferritin 293.5, ALT 35, C-reactive protein 68.4, albumin 1.8. Microbiology showing evidence of both E coli and Enterococcus faecalis in the urine from January 16. Chest x-ray from January 30 shows patchy right greater than left ground-glass opacities. Chest x-ray is essentially unchanged. MEDICATIONS: Reviewed. Currently, the patient is on Tylenol, albuterol inhaler, amiodarone, ascorbic acid, Peridex, vitamin D3, Cleviprex p.r.n., Lovenox, Pepcid, hydralazine, insulin, Levaquin, magnesium replacement, melatonin, metoprolol, Narcan, norepinephrine p.r.n., potassium replacement, propofol and zinc. ASSESSMENT: 1. Acute hypoxemic respiratory failure secondary to bilateral Covid 19 pneumonia with development of acute respiratory distress syndrome, requiring intubation and mechanical ventilation on December with failure to wean from mechanical ventilation, and anticipated tracheostomy and PEG tube on February 01, 2020. 2. Status post 5 days of Remdesivir and convalescent plasma, 1 unit. 3. Acute right-sided pulmonary embolism, secondary to hypercoagulable state, induced by Covid 19 infection. 4. Acute blood loss anemia, status post 1 unit of PRBCs. 5. Recurrent atrial fibrillation. 6. Remote history of deep venous thrombosis. 7. Acute kidney injury. 8. Hypernatremia, resolved. 9. Toxic/metabolic encephalopathy secondary to COVID-19 infection. 10.E. coli, Enterococcus faecalis, acute urinary tract infection, currently being treated with Levaquin. PLAN: The patient will hopefully have a tracheostomy and PEG tube placement yet tomorrow. Dr. Gomez is willing to do it. The patient's FiO2 was dropped to 45%. I did explain to the on multiple occasions, the need for tracheostomy and PEG tube. The patient's is feeling that he wants to give his every chance to improve and I told him that was fine. I think the patient should have a tracheostomy and PEG tube placement and then transferred to long-term acute care facility. Again, I explained this to the on several occasions. He does understand. Apparently, he has not given consent for the trach and PEG as yet. The schedule trach and PEG are for tomorrow. I did tell the surgeon that we are waiting for consent. Additional recommendations and suggestions are forthcoming. Prognosis is very guarded. We will continue to follow. Critical care time 34 minutes. JANES / LUKE: [phone] /
--- NOTE | 2020-01-31 11:06 | P.PN ---
Progress Note - Text Progress Note Date: 01/31/20 The patient's condition remains unchanged. The family will be deciding today whether or not she will undergo tracheostomy and PEG tube placement. If consented she will be scheduled for tomorrow for tracheostomy and PEG tube placement.
[2020-01-31 13:43] LABS: Glucose,Whole Blood 103 mg/dL (75-99)
[2020-01-31] MEDS: METOPROLOL TARTRATE 50 MG TAB PO SCH ×2 (13:43→20:50)
[2020-01-31] MEDS: LEVOFLOXACIN 500MG-D5W PMX 500 MG in DEXTROSE/WATER 1 100ML.BAG IVPB SCH (15:14)
--- NOTE | 2020-01-31 16:39 | P.PN ---
Subjective Progress Note Date: 01/31/20 Principal diagnosis: COVID pneumonia Patient still on the vent, she has not made any significant progress. No overnight event. No fevers. Objective - Vital Signs Vital signs: Vital Signs Temp 98.7 F 01/31/20 12:00 Pulse 70 01/31/20 15:00 Resp 30 H 01/31/20 15:00 BP 125/69 01/30/20 06:00 Pulse Ox 95 01/31/20 15:00 Intake & Output 01/30/20 01/31/20 01/31/20 18:59 06:59 18:59 Intake Total 8932.148 5201.047 1342.665 Output Total 2060 1740 1190 Balance -406.722 61.047 152.665 Weight 91.3 kg 93 kg Intake: IV 333 276 207 .9 @ KVO 200 240 180 Levofloxacin 500Mg-D5w 100 Pmx 500 mg In Dextrose/ Water 1 100ml.bag @ 100 mls/hr IVPB Q24H [facility] Rx#: [id number] pressure bags 33 36 27 Intake, IV Titration 247.278 367.047 248.665 Amount Norepinephrine 4 mg In 0 70.725 50.974 Sodium Chloride 0.9% 250 ml @ 0.05 MCG/KG/MIN 17. 377 mls/hr IV .[id number] [facility] Rx#:[id number] propofoL 1,000 mg In 247.278 296.322 197.691 Empty Bag 1 bag @ Titrate IV .Q0M [facility] Rx#: [id number] Oral 100 Tube Feeding 473 558 387 Other 600 600 400 Output: Urine 860 1740 1190 Stool 1200 Other: Voiding Method Indwelling Catheter Indwelling Catheter Indwelling Catheter ABP, PAP, CO, CI - Last Documented Arterial Blood Pressure 130/59 - Exam General: Ill-appearing, no distress, appears at stated age Derm: warm, dry, Head: atraumatic, normocephalic, symmetric Eyes: EOMI, no lid lag, anicteric sclera Mouth: no lip lesion, mucus membranes moist Cardiovascular: S1S2 reg, no murmur, positive posterior tibial pulse bilateral, Lungs: Coarse breath sounds bilateral, no rhonchi, no rales, no accessory muscle use Abdominal: soft, nontender to palpation, no guarding, no appreciable organomegaly Ext: no gross muscle atrophy, diffuse anasarca (improving), no contractures Neuro: No gross muscle atrophy, no tremors noted, moving right fingers and bilateral toes Psych: lethargic but open eyes - Labs CBC & Chem 7: 01/31/20 04:15 01/31/20 04:15 Labs: Abnormal Lab Results - Last 24 Hours (Table) 01/30/20 01/31/20 01/31/20 Range/Units 23:21 04:15 04:15 RBC 2.18 L (3.80-5.40) m/uL Hgb 6.8 L* (11.4-16.0) gm/dL Hct 21.4 L (34.0-46.0) % RDW 17.3 H (11.5-15.5) % Plt Count 135 L (150-450) k/uL Lymphocytes # 0.5 L (1.0-4.8) k/uL D-Dimer 2.55 H (<0.60) mg/L FEU ABG pCO2 (35-45) mmHg ABG HCO3 (21-25) mmol/L ABG Total CO2 (19-24) mmol/L ABG O2 Saturation (94-97) % Chloride (98-107) mmol/L Carbon Dioxide (22-30) mmol/L BUN (7-17) mg/dL POC Glucose (mg/dL) 139 H (75-99) mg/dL Calcium (8.4-10.2) mg/dL Ferritin (10.0-291.0) ng/mL ALT (4-34) U/L C-Reactive Protein (<10.0) mg/L Total Protein (6.3-8.2) g/dL Albumin (3.5-5.0) g/dL 01/31/20 01/31/20 01/31/20 Range/Units 04:15 04:34 13:41 RBC (3.80-5.40) m/uL Hgb (11.4-16.0) gm/dL Hct (34.0-46.0) % RDW (11.5-15.5) % Plt Count (150-450) k/uL Lymphocytes # (1.0-4.8) k/uL D-Dimer (<0.60) mg/L FEU ABG pCO2 46 H (35-45) mmHg ABG HCO3 29 H (21-25) mmol/L ABG Total CO2 31 H (19-24) mmol/L ABG O2 Saturation 99.5 H (94-97) % Chloride 110 H (98-107) mmol/L Carbon Dioxide 32 H (22-30) mmol/L BUN 34 H (7-17) mg/dL POC Glucose (mg/dL) 103 H (75-99) mg/dL Calcium 8.0 L (8.4-10.2) mg/dL Ferritin 293.5 H (10.0-291.0) ng/mL ALT 35 H (4-34) U/L C-Reactive Protein 68.4 H (<10.0) mg/L Total Protein 4.0 L (6.3-8.2) g/dL Albumin 1.8 L (3.5-5.0) g/dL Assessment and Plan Plan: Covid 19 pneumonia with acute hypoxic respiratory failure, ARDS - Failing weaning trials so far. - Completed Remdesivir on 01/15 - s/p Dexamethasone day #17 days completed - Status post convalescent plasma 01/14 - Pulmonary discussed case with family, family considering PEG and trach placement, no final decision made yet. - Continue zinc, vitamin C, vitamin D, Pepcid, and melatonin Anemia, undetermined cause, thrombocytopenia, likely reactive - 1 unit pRBC 01/25/2020 - Stable now - suspect due to slow leak from TLC site. - Lovenox. dose adjusted by pulm for bleeding - Pulm wants to hold off transfusion at this point DIffuse Anasarca - Lasix X 1 given 01/22, repeated 01/25 Pulmonary embolus without right ventricular strain, history of prior DVT - Lovenox P. A fib with RVR - lovenox, amio - now in NSR Entercoccus and E coli UTI - Levaquin D # stop date 01/31 Thrombocytopenia KALYAN due to ATN with resultant metabolic acidosis and hyperphosphatemia, resolved Septic shock, resolved Hypokalemia, resolved Case was discussed with family again, they are more opting towards comfort measures. Family will provide a final decision on that today. DVT prophylaxis: Lovenox for PE Discussed with: Nursing, ICU team Anticipated discharge: undetermined Anticipated discharge place: [facility] A total of 25 minutes was spent on the care of this complex patient more than 50% of the time was spent in counseling and care coordination.
[2020-01-31 17:49] LABS: Glucose,Whole Blood 120 mg/dL (75-99)
[2020-01-31] MEDS: MELATONIN 5 MG TABLET PO SCH (20:50)
[2020-01-31] MEDS: INSULIN DETEMIR (LEVEMIR) 100 UNIT/ML SYR SQ SCH (20:51)
[2020-01-31 23:44] LABS: Glucose,Whole Blood 142 mg/dL (75-99)
[2020-02-01 05:06] LABS: ABG Base Excess 5.9 mmol/L; ABG HCO3 30 mmol/L (21-25); ABG PCO2 46 mmHg (35-45); ABG PH 7.42 (7.35-7.45); ABG PO2 90 mmHg (83-108); ABG TCO2 32 mmol/L (19-24); Allen Test Performed? Yes
[2020-02-01 05:09] LABS: Anisocytosis Slight; Basophils % (A) 0 %; Eosinophils # (A) 0.4 k/uL (0-0.7); Eosinophils % (A) 7 %; HCT 22.1 % (34.0-46.0); Hypochromasia Moderate; Lymphocytes # (A) 0.5 k/uL (1.0-4.8); Lymphocytes % (A) 10 %; MCH 30.8 pg (25.0-35.0); MCHC 31.3 g/dL (31.0-37.0); MCV 98.4 fL (80.0-100.0); Macrocytosis Slight; Mean Platelet Volume 9.9; Monocytes # (A) 0.2 k/uL (0-1.0); Monocytes % (A) 4 %; Neutrophils % (A) 78 %; Platelet Count 140 k/uL (150-450); RBC 2.24 m/uL (3.80-5.40); RDW 17.5 % (11.5-15.5); WBC 5.1 k/uL (3.8-10.6)
[2020-02-01 05:10] LABS: HGB 6.9 gm/dL (11.4-16.0)
[2020-02-01 05:27] LABS: ALT 44 U/L (4-34); AST 34 U/L (14-36); African American GFR (CKD) >90 (>60 ml/min/1.73 sqM); Albumin 1.8 g/dL (3.5-5.0); Alkaline Phosphatase 76 U/L (38-126); Anion Gap -2 mmol/L; Blood Urea Nitrogen 32 mg/dL (7-17); Calcium 8.2 mg/dL (8.4-10.2); Carbon Dioxide 31 mmol/L (22-30); Chloride 108 mmol/L (98-107); Glucose 107 mg/dL (74-99); Non-African American GFR(CKD) >90 (>60 ml/min/1.73 sqM); Potassium 4.1 mmol/L (3.5-5.1); Sodium 137 mmol/L (137-145); Total Bilirubin 0.3 mg/dL (0.2-1.3); Total Protein 4.1 g/dL (6.3-8.2)
[2020-02-01 06:12] LABS: Glucose,Whole Blood 105 mg/dL (75-99)
[2020-02-01] MEDS: INSULIN ASPART (NovoLOG) 100 UNIT/ML VIAL SQ SCH ×4 (07:42→23:53)
[2020-02-01] MEDS: ALBUTEROL HFA INHALER INHALATION SCH ×4 (07:50→20:20)
[2020-02-01] MEDS: ZINC SULFATE 220 MG CAP PO SCH (07:59)
[2020-02-01] MEDS: CHOLECALCIFEROL 1,000 UNIT TAB PO SCH (07:59)
[2020-02-01] MEDS: FAMOTIDINE 20 MG TAB PO SCH (07:59)
[2020-02-01] MEDS: ASCORBIC ACID 500 MG TAB PO SCH (07:59)
[2020-02-01] MEDS: AMIODARONE 200 MG TAB PO SCH ×2 (07:59→22:00)
[2020-02-01] MEDS: METOPROLOL TARTRATE 50 MG TAB PO SCH ×2 (07:59→22:00)
[2020-02-01] MEDS: CHLORHEXIDINE GLUCONATE 15 ML CUP MUCOUS MEM SCH ×3 (07:59→23:53)
[2020-02-01] MEDS: ENOXAPARIN 60 MG/0.6 ML SYRINGE SQ SCH ×2 (08:00→22:00)
--- NOTE | 2020-02-01 08:50 | XR ---
EXAMINATION TYPE: XR chest 1V DATE OF EXAM: 02/01/2020 COMPARISON: 01/31/2020 HISTORY: 79-year-old female shortness of breath TECHNIQUE: Single frontal view of the chest is obtained. FINDINGS: ET tube is satisfactory. NG tube courses below the diaphragm. Again, this may be looped up with tip projecting at the left base. Diffuse interstitial opacities persist. Right PICC tip at the lower SVC. Heart borderline enlarged, unchanged. Bibasilar opacities may be slightly less confluent f rom prior. IMPRESSION: 1. Continued bilateral interstitial infiltrates. Bibasilar opacities may be minimally improved. 2. NG tube may be looped in the stomach with tip projecting in the left base, probably in a hiatal he rnia.
[2020-02-01 10:18] LABS: Ferritin 320.1 ng/mL (10.0-291.0)
[2020-02-01 12:24] LABS: Glucose,Whole Blood 110 mg/dL (75-99)
[2020-02-01] MEDS: LEVOFLOXACIN 500MG-D5W PMX 500 MG in DEXTROSE/WATER 1 100ML.BAG IVPB SCH (15:24)
--- NOTE | 2020-02-01 15:28 | P.PN ---
Subjective Progress Note Date: 02/01/20 Principal diagnosis: COVID pneumonia 01/31: According to nursing staff no change occurred with the patient's condition. No overnight events. Patient's family has decided to make patient comfort care. Objective - Vital Signs Vital signs: Vital Signs Temp 98.6 F 02/01/20 12:00 Pulse 60 02/01/20 15:00 Resp 25 H 02/01/20 15:00 BP 125/69 01/30/20 06:00 Pulse Ox 99 02/01/20 15:00 Intake & Output 01/31/20 02/01/20 02/01/20 18:59 06:59 18:59 Intake Total 7802.956 9084.907 1085.141 Output Total 1655 1225 835 Balance 177.878 502.907 250.141 Weight 89.3 kg 89.3 kg Intake: IV 276 276 138 .9 @ KVO 240 240 120 pressure bags 36 36 18 Intake, IV Titration 340.878 292.907 189.141 Amount Norepinephrine 4 mg In 50.974 Sodium Chloride 0.9% 250 ml @ 0.05 MCG/KG/MIN 17. 377 mls/hr IV .[id number] [facility] Rx#:[id number] propofoL 1,000 mg In 289.904 292.907 189.141 Empty Bag 1 bag @ Titrate IV .Q0M [facility] Rx#: [id number] Oral 100 100 Tube Feeding 516 559 258 Other 600 600 400 Output: Urine 1655 1225 835 Other: Voiding Method Indwelling Catheter Indwelling Catheter ABP, PAP, CO, CI - Last Documented Arterial Blood Pressure 116/54 - Exam General: Ill-appearing, no distress, appears at stated age Derm: warm, dry, Head: atraumatic, normocephalic, symmetric Eyes: EOMI, no lid lag, anicteric sclera Mouth: no lip lesion, mucus membranes moist Cardiovascular: S1S2 reg, no murmur, positive posterior tibial pulse bilateral, Lungs: Coarse breath sounds bilateral, no rhonchi, no rales, no accessory muscle use Abdominal: soft, nontender to palpation, no guarding, no appreciable organomegaly Ext: no gross muscle atrophy, diffuse anasarca (improving), no contractures Neuro: No gross muscle atrophy, no tremors noted, moving right fingers and bilateral toes Psych: lethargic but open eyes - Labs CBC & Chem 7: 02/01/20 04:50 02/01/20 04:50 Labs: Abnormal Lab Results - Last 24 Hours (Table) 01/31/20 01/31/20 02/01/20 Range/Units 17:47 23:42 04:50 RBC 2.24 L (3.80-5.40) m/uL Hgb 6.9 L* (11.4-16.0) gm/dL Hct 22.1 L (34.0-46.0) % RDW 17.5 H (11.5-15.5) % Plt Count 140 L (150-450) k/uL Lymphocytes # 0.5 L (1.0-4.8) k/uL Fibrinogen (200-500) mg/dL ABG pCO2 (35-45) mmHg ABG HCO3 (21-25) mmol/L ABG Total CO2 (19-24) mmol/L ABG O2 Saturation (94-97) % Chloride (98-107) mmol/L Carbon Dioxide (22-30) mmol/L BUN (7-17) mg/dL Creatinine (0.52-1.04) mg/dL Glucose (74-99) mg/dL POC Glucose (mg/dL) 120 H 142 H (75-99) mg/dL Calcium (8.4-10.2) mg/dL Ferritin (10.0-291.0) ng/mL ALT (4-34) U/L C-Reactive Protein (<10.0) mg/L Total Protein (6.3-8.2) g/dL Albumin (3.5-5.0) g/dL 02/01/20 02/01/20 02/01/20 Range/Units 04:50 04:50 04:58 RBC (3.80-5.40) m/uL Hgb (11.4-16.0) gm/dL Hct (34.0-46.0) % RDW (11.5-15.5) % Plt Count (150-450) k/uL Lymphocytes # (1.0-4.8) k/uL Fibrinogen 615 H (200-500) mg/dL ABG pCO2 46 H (35-45) mmHg ABG HCO3 30 H (21-25) mmol/L ABG Total CO2 32 H (19-24) mmol/L ABG O2 Saturation 99.0 H (94-97) % Chloride 108 H (98-107) mmol/L Carbon Dioxide 31 H (22-30) mmol/L BUN 32 H (7-17) mg/dL Creatinine 0.46 L (0.52-1.04) mg/dL Glucose 107 H (74-99) mg/dL POC Glucose (mg/dL) (75-99) mg/dL Calcium 8.2 L (8.4-10.2) mg/dL Ferritin 320.1 H (10.0-291.0) ng/mL ALT 44 H (4-34) U/L C-Reactive Protein 77.0 H (<10.0) mg/L Total Protein 4.1 L (6.3-8.2) g/dL Albumin 1.8 L (3.5-5.0) g/dL 02/01/20 02/01/20 Range/Units 06:10 12:22 RBC (3.80-5.40) m/uL Hgb (11.4-16.0) gm/dL Hct (34.0-46.0) % RDW (11.5-15.5) % Plt Count (150-450) k/uL Lymphocytes # (1.0-4.8) k/uL Fibrinogen (200-500) mg/dL ABG pCO2 (35-45) mmHg ABG HCO3 (21-25) mmol/L ABG Total CO2 (19-24) mmol/L ABG O2 Saturation (94-97) % Chloride (98-107) mmol/L Carbon Dioxide (22-30) mmol/L BUN (7-17) mg/dL Creatinine (0.52-1.04) mg/dL Glucose (74-99) mg/dL POC Glucose (mg/dL) 105 H 110 H (75-99) mg/dL Calcium (8.4-10.2) mg/dL Ferritin (10.0-291.0) ng/mL ALT (4-34) U/L C-Reactive Protein (<10.0) mg/L Total Protein (6.3-8.2) g/dL Albumin (3.5-5.0) g/dL Assessment and Plan Plan: Covid 19 pneumonia with acute hypoxic respiratory failure, ARDS - Failing weaning trials. - Completed Remdesivir on 01/15 - s/p Dexamethasone day #17 days completed - Status post convalescent plasma 01/14 - Pulmonary discussed case with family, family considering not pursuing PEG and trach placement, according to nursing staff family is leaning towards comfort care.. - Continue zinc, vitamin C, vitamin D, Pepcid, and melatonin Anemia, undetermined cause, thrombocytopenia, likely reactive - 1 unit pRBC 01/25/2020 - Stable now - suspect due to slow leak from TLC site. - Lovenox. dose adjusted by pulm for bleeding - Pulm wants to hold off transfusion at this point DIffuse Anasarca - Lasix X 1 given 01/22, repeated 01/25 Pulmonary embolus without right ventricular strain, history of prior DVT - Lovenox P. A fib with RVR - lovenox, amio - now in NSR Entercoccus and E coli UTI -Status post treatment with Levaquin, stop date 01/31 Thrombocytopenia KALYAN due to ATN with resultant metabolic acidosis and hyperphosphatemia, resolved Septic shock, resolved Hypokalemia, resolved DVT prophylaxis: Lovenox for PE Discussed with: Nursing, ICU team Anticipated discharge: undetermined Anticipated discharge place: Undetermined A total of 25 minutes was spent on the care of this complex patient more than 50% of the time was spent in counseling and care coordination.
--- NOTE | 2020-02-01 15:42 | PN ---
PROGRESS NOTE PULMONARY/CRITICAL CARE PROGRESS NOTE: DATE OF SERVICE: February 01, 2020 Critical care time 33 minutes. This is a 79-year-old female who was admitted back on January 08. She was admitted with a diagnosis of COVID-19 pneumonitis. She unfortunately developed severe hypoxemic respiratory failure and required intubation on January 15. She has been on the ventilator since. The patient has not really shown much improvement. She did receive convalescent plasma and Remdesivir for 5 days. We have had a long talk with the family over a number of days. Initially, her Mitchell wanted everything done including tracheostomy and PEG tube. That was scheduled for today but apparently now he has changed his mind. Apparently they would like the patient to go comfort measures only beginning on Sunday. Currently, the patient is on the volume assist-control mode rate of 25, tidal volume 350, FiO2 45%, PEEP of 10. Blood gases are reasonable with a pO2 of 90, pCO2 46, pH 7.42. The patient has had numerous sedation holidays and spontaneous breathing trials and does poorly each time. The patient is on propofol at 45 mcg/kg per minute, saline at 20 mL an hour and Vital High protein at 43, which is goal, 43 mL an hour. Currently, the patient is being treated for urinary tract infection secondary to both Escherichia coli and Enterococcus faecalis. Again, she has had multiple episodes of daily interruption with spontaneous breathing trials and does very poorly literally within minutes after being placed on pressure support and CPAP. PHYSICAL EXAMINATION: VITAL SIGNS: Current vital signs are reviewed. Temperature is 98.2, heart rate 64, respiratory rate 30, blood pressure 123/59, saturations are 98% on the current settings. Appears in no acute distress. The patient is sedated with propofol at 45 mcg/kg per minute. HEENT: Examination is grossly unremarkable. There is an orally placed endotracheal tube and NG tube. NECK: Supple, full range of motion. No adenopathy. Neck veins are flat. CARDIOVASCULAR: Examination reveals regular rhythm and rate. Heart rate 64 beats per minute. S1, S2 normal. Heart sounds are distant. LUNGS: Reveal diffuse coarse rhonchi. Breath sounds equal but diminished throughout. No crackles. ABDOMEN: Soft. Bowel sounds are noted. EXTREMITIES are intact. Mild edema. SKIN: Without rash. NEUROLOGIC: Examination could not be adequately assessed. LABS: Reviewed. White count 5.1, hemoglobin 6.9, hematocrit 22.1, platelet count 140,000. Fibrinogen 615. Blood gases have been noted. Sodium 137, potassium 4.1, chloride 108, CO2 is 31, BUN and creatinine were 32 and 0.46. Ferritin 320.1, ALT 44, C-reactive protein 77, albumin 1.8. Microbiology is positive for both Escherichia coli and Enterococcus faecalis in the urine from January 16. A chest x-ray dated 02/01/2020 showed continued bilateral interstitial infiltrates, maybe slightly improved. CURRENT MEDICATIONS: Reviewed. The patient is currently on Tylenol, albuterol inhaler, Cordarone, ascorbic acid, chlorhexidine, vitamin D3, Lovenox, Pepcid, hydralazine, insulin, Levaquin, magnesium, melatonin, metoprolol, Narcan, potassium replacement, Diprivan, and zinc sulfate. ASSESSMENT: 1. Acute hypoxemic respiratory failure secondary to bilateral COVID-19 pneumonia with development of acute respiratory distress syndrome, requiring intubation and mechanical ventilation on January 15 with failure to wean from mechanical ventilation. 2. Anticipated PEG tube placement and tracheostomy February 01, 2020, canceled by family. 3. Status post 5 days of Remdesivir and convalescent plasma, 1 unit. 4. Acute right-sided pulmonary embolism, secondary to hypercoagulable state, induced by COVID-19 infection. 5. Acute blood loss anemia, status post one unit of PRBCs. 6. Recurrent atrial fibrillation. 7. Remote history of deep venous thrombosis. 8. Acute kidney injury. 9. Hypernatremia, resolved. 10.Toxic/metabolic encephalopathy secondary to COVID-19 infection. 11.Escherichia coli and Enterococcus faecalis acute urinary tract infection, currently being treated with Levaquin. PLAN: I have had numerous discussions with the patient's , Mitchell. Initially he wanted everything done including tracheostomy and PEG tube placement and placement in a long-term acute care. Apparently, he has changed his mind. The PEG and trach were scheduled for today but apparently he canceled it with the idea that she will go comfort measures on Sunday. Additional recommendations and suggestions are forthcoming. Prognosis is guarded. No additional recommendations are made. We will continue to follow. Critical care time 33 minutes. MMODL / IJN: [id number] /
[2020-02-01 18:09] LABS: Glucose,Whole Blood 103 mg/dL (75-99)
--- NOTE | 2020-02-01 20:02 | P.PN ---
Subjective Progress Note Date: 02/01/20 A 79-year-old female patient who was admitted on 01/09/2020 with: 19 related pneumonia and acute pulmonary embolism. I was involved in a relationship her back then. I'm seeing her today in follow-up. The patient's course was. By severe hypoxic respiratory failure requiring intubation mechanical ventilation was done on 01/16/2020. She has been on a mechanical ventilator since. She has not shown significant improvement. She received remdesivir and convalescent plasma. The wanted everything done including a tracheostomy and affect tube insertion. The patient was scheduled to undergo the procedure yesterday. This was not done as the changed his mind. The patient may possibly go with comfort care measures. For now, the patient remains intubated on a mechanical ventilator. She is an assist-control mode rate of 25 and a tidal volume of 350 and FiO2 of 45% and PEEP of 10. The patient has had numerous spontaneous breathing trials which she failed and the patient will weaning parameters. She is currently is sedated with propofol running at 25 g per KG per minute. The patient on enteral feeding for nutritional support with vital high protein. This is running at 40 mL an hour. She has developed a UTI and she is being treated with antibiotics. Urine cultures have shown E. coli Enterococcus faecalis. I believe this patient's family is opting towards comfort care measures with the next 24-48 hours and for that reason the PEG tube insertion a tracheostomy tube insertion has been canceled for now. Objective - Vital Signs Vital signs: Vital Signs Temp 98.4 F 02/01/20 16:00 Pulse 64 02/01/20 19:00 Resp 27 H 02/01/20 19:00 BP 125/69 01/30/20 06:00 Pulse Ox 98 02/01/20 19:00 Intake & Output 02/01/20 02/01/20 02/02/20 06:59 18:59 06:59 Intake Total 9060.711 7268.141 Output Total 1225 1315 Balance 502.907 200.141 Weight 89.3 kg 89.3 kg Intake: IV 276 253 .9 @ KVO 240 220 pressure bags 36 33 Intake, IV Titration 292.907 289.141 Amount propofoL 1,000 mg In 292.907 289.141 Empty Bag 1 bag @ Titrate IV .Q0M [facility] Rx#: [id number] Oral 100 Tube Feeding 559 473 Other 600 400 Output: Urine 1225 1315 Other: Voiding Method Indwelling Catheter Indwelling Catheter ABP, PAP, CO, CI - Last Documented Arterial Blood Pressure 133/57 - Exam GENERAL EXAM: Alert, very pleasant 79-year-old female patient which is currently intubated on a mechanical ventilator. Orogastric and orotracheal tube are both in place. HEAD: Normocephalic. EYES: Normal reaction of pupils, equal size. NOSE: Clear with pink turbinates. THROAT: No erythema or exudates. NECK: No masses, no JVD. A subclavian catheter was established on the right side. on the right side.CHEST: No chest wall deformity. LUNGS: Equal air entry with scattered rhonchi., The patient is crackles lung bases bilaterally. CVS: S1 and S2 normal with no audible murmur, irregular rhythm. ABDOMEN: No hepatosplenomegaly, normal bowel sounds, no guarding or rigidity. SPINE: No scoliosis or deformity SKIN: No rashes CENTRAL NERVOUS SYSTEM: the patient is currently sedated, comfortable ce ntimeters the mechanical ventilator. EXTREMITIES: There is no peripheral edema. No clubbing, no cyanosis. Peripheral pulses are intact. - Labs CBC & Chem 7: 02/01/20 04:50 02/01/20 04:50 Labs: Abnormal Lab Results - Last 24 Hours (Table) 01/31/20 02/01/20 02/01/20 Range/Units 23:42 04:50 04:50 RBC 2.24 L (3.80-5.40) m/uL Hgb 6.9 L* (11.4-16.0) gm/dL Hct 22.1 L (34.0-46.0) % RDW 17.5 H (11.5-15.5) % Plt Count 140 L (150-450) k/uL Lymphocytes # 0.5 L (1.0-4.8) k/uL Fibrinogen 615 H (200-500) mg/dL ABG pCO2 (35-45) mmHg ABG HCO3 (21-25) mmol/L ABG Total CO2 (19-24) mmol/L ABG O2 Saturation (94-97) % Chloride (98-107) mmol/L Carbon Dioxide (22-30) mmol/L BUN (7-17) mg/dL Creatinine (0.52-1.04) mg/dL Glucose (74-99) mg/dL POC Glucose (mg/dL) 142 H (75-99) mg/dL Calcium (8.4-10.2) mg/dL Ferritin (10.0-291.0) ng/mL ALT (4-34) U/L C-Reactive Protein (<10.0) mg/L Total Protein (6.3-8.2) g/dL Albumin (3.5-5.0) g/dL 02/01/20 02/01/20 02/01/20 Range/Units 04:50 04:58 06:10 RBC (3.80-5.40) m/uL Hgb (11.4-16.0) gm/dL Hct (34.0-46.0) % RDW (11.5-15.5) % Plt Count (150-450) k/uL Lymphocytes # (1.0-4.8) k/uL Fibrinogen (200-500) mg/dL ABG pCO2 46 H (35-45) mmHg ABG HCO3 30 H (21-25) mmol/L ABG Total CO2 32 H (19-24) mmol/L ABG O2 Saturation 99.0 H (94-97) % Chloride 108 H (98-107) mmol/L Carbon Dioxide 31 H (22-30) mmol/L BUN 32 H (7-17) mg/dL Creatinine 0.46 L (0.52-1.04) mg/dL Glucose 107 H (74-99) mg/dL POC Glucose (mg/dL) 105 H (75-99) mg/dL Calcium 8.2 L (8.4-10.2) mg/dL Ferritin 320.1 H (10.0-291.0) ng/mL ALT 44 H (4-34) U/L C-Reactive Protein 77.0 H (<10.0) mg/L Total Protein 4.1 L (6.3-8.2) g/dL Albumin 1.8 L (3.5-5.0) g/dL 02/01/20 02/01/20 Range/Units 12:22 18:07 RBC (3.80-5.40) m/uL Hgb (11.4-16.0) gm/dL Hct (34.0-46.0) % RDW (11.5-15.5) % Plt Count (150-450) k/uL Lymphocytes # (1.0-4.8) k/uL Fibrinogen (200-500) mg/dL ABG pCO2 (35-45) mmHg ABG HCO3 (21-25) mmol/L ABG Total CO2 (19-24) mmol/L ABG O2 Saturation (94-97) % Chloride (98-107) mmol/L Carbon Dioxide (22-30) mmol/L BUN (7-17) mg/dL Creatinine (0.52-1.04) mg/dL Glucose (74-99) mg/dL POC Glucose (mg/dL) 110 H 103 H (75-99) mg/dL Calcium (8.4-10.2) mg/dL Ferritin (10.0-291.0) ng/mL ALT (4-34) U/L C-Reactive Protein (<10.0) mg/L Total Protein (6.3-8.2) g/dL Albumin (3.5-5.0) g/dL Assessment and Plan Plan: 1 acute hypoxic respiratory failure predominantly secondary to Covid 19 related pneumonia and there is also some contribution to her hypoxemia because of the pulmonary embolism. The predominant factor contributing to respiratory failure is Covid 19 related pneumonia as the patient developed diffuse breath and pulmonary infiltrates with progressive hypoxemia despite ongoing treatment. The patient was intubated on 01/16/2020 and the patient currently remains intubated sedated on a mechanical ventilator. Blood gases was noted. Ventilator settings were noted. Chest x-ray findings were also noted and the patient is diffuse but the pulmonary infiltrates consistent with the viral pneumonia. The patient completed the course of Remdesivir and the patient also received convalescent plasma 1. 2 acute right-sided pulmonary embolism, probably related to Covid 19 related hypercoagulability.The patient is currently on Lovenox therapeutic dose, 60 mg subcu every 12 hours. 3 Covid 19 related pneumonia 4 recurrent atrial fibrillation with rapid response. The patient is on Metopro lol and amiodarone. Patient is already and anticoagulation. 5 hypotension, recovered 6 remote history of DVT and the patient was taken Xarelto on outpatient basis 7 hypertension 8 acute kidney injury, recovered and the renal function improved and normalized 9 non-anion gap metabolic acidosis, recovered 10 Chronic anemia, multifactorial. plan Continue ventilator support Copleted 10 days course of Decadron 6 mg , completed the course of Remdesivir per protocol in addition to the rest of the supplements including vitamin C, vitamin D, melatonin, Pepcid and zinc The patient received a unit of convalescent plasma. Lovenox therapeutic dose of 60 mg every 12 hours. monitor inflammatory markers Cardiac rhythm is atrial fibrillation /sinus and the patient is on Metoprolol and amiodarone. Condition is critical we'll continue to follow. The patient be kept in the intensive care unit for now.This is a critically care evaluation that was done and more than 30 minutes.
[2020-02-01] MEDS: MELATONIN 5 MG TABLET PO SCH (22:00)
[2020-02-01] MEDS: INSULIN DETEMIR (LEVEMIR) 100 UNIT/ML SYR SQ SCH (22:00)
[2020-02-01 23:48] LABS: Glucose,Whole Blood 109 mg/dL (75-99)
[2020-02-02 04:57] LABS: ABG Base Excess 6.6 mmol/L; ABG HCO3 31 mmol/L (21-25); ABG Oxygen Saturation 97.8 % (94-97); ABG PCO2 45 mmHg (35-45); ABG PH 7.44 (7.35-7.45); ABG PO2 78 mmHg (83-108); ABG TCO2 32 mmol/L (19-24)
[2020-02-02 05:12] LABS: Anisocytosis Slight; Basophils % (A) 0 %; Eosinophils # (A) 0.3 k/uL (0-0.7); Eosinophils % (A) 7 %; HCT 21.8 % (34.0-46.0); Hypochromasia Moderate; Lymphocytes # (A) 0.6 k/uL (1.0-4.8); Lymphocytes % (A) 14 %; MCH 31.4 pg (25.0-35.0); MCHC 32.2 g/dL (31.0-37.0); MCV 97.5 fL (80.0-100.0); Macrocytosis Slight; Mean Platelet Volume 8.9; Monocytes # (A) 0.2 k/uL (0-1.0); Monocytes % (A) 4 %; Neutrophils # (A) 3.2 k/uL (1.3-7.7); Neutrophils % (A) 74 %; Platelet Count 158 k/uL (150-450); Poikilocytosis Slight; RBC 2.23 m/uL (3.80-5.40); RDW 17.3 % (11.5-15.5); WBC 4.3 k/uL (3.8-10.6)
[2020-02-02 05:13] LABS: Glucose,Whole Blood 114 mg/dL (75-99)
[2020-02-02] MEDS: INSULIN ASPART (NovoLOG) 100 UNIT/ML VIAL SQ SCH ×4 (05:15→23:44)
[2020-02-02 05:22] LABS: ALT 40 U/L (4-34); AST 28 U/L (14-36); African American GFR (CKD) >90 (>60 ml/min/1.73 sqM); Albumin 1.9 g/dL (3.5-5.0); Alkaline Phosphatase 76 U/L (38-126); Anion Gap -2 mmol/L; Blood Urea Nitrogen 28 mg/dL (7-17); Carbon Dioxide 33 mmol/L (22-30); Chloride 107 mmol/L (98-107); Glucose 96 mg/dL (74-99); Non-African American GFR(CKD) >90 (>60 ml/min/1.73 sqM); Sodium 138 mmol/L (137-145); Total Bilirubin 0.4 mg/dL (0.2-1.3); Total Protein 4.2 g/dL (6.3-8.2)
[2020-02-02 05:44] LABS: Allen Test Performed? no
--- NOTE | 2020-02-02 07:08 | XR ---
EXAMINATION TYPE: XR chest 1V DATE OF EXAM: 02/02/2020 CLINICAL HISTORY: Difficulty breathing progress study. Covid pneumonia. TECHNIQUE: Single AP portable semiupright view of the chest is obtained. COMPARISON: Chest x-ray from one day earlier FINDINGS:Stable endotracheal and coiled orogastric tube into hiatal hernia. Stable right-sided PICC l ine. Cardiac silhouette size stable and mildly enlarged. Persistent multifocal right greater than left indra ateral airspace opacities on background chronic parenchymal change. Underlying scoliotic curvature. IMPRESSION: Overall stable findings from most recent x-ray. Persistent bilateral multifocal infiltrat es on background chronic change consistent with covid -19 infection.
--- NOTE | 2020-02-02 07:54 | P.PN ---
Subjective Progress Note Date: 02/02/20 A 79-year-old female patient who was admitted on 01/09/2020 with COVID 19 related pneumonia and acute pulmonary embolism. I was involved in the care of her back then. I'm seeing her today in follow-up. The patient's course was noted . She had developed hypoxic respiratory failure requiring intubation mechanical ventilation was done on 01/16/2020. She has been on a mechanical ventilator since. She has not shown significant improvement. She received remdesivir and convalescent plasma. The wanted everything done including a tracheostomy and PEG tube insertion. The patient was scheduled to undergo the procedure yesterday. This was not done as the changed his mind. The patient may possibly go with comfort care measures. For now, the patient remains intubated on a mechanical ventilator. She is an assist-control mode rate of 25 and a tidal volume of 350 and FiO2 of 45% and PEEP of 10. The patient has had numerous awakening trials which she failed and the patient will weaning parameters. She is currently is sedated with propofol running at 35 g per KG per minute. The patient on enteral feeding for nutritional support with vital high protein. This is running at 40 mL an hour. She has developed a UTI and she is being treated with antibiotics. Urine cultures have shown E. coli Enterococcus faecalis. I believe this patient's family is opting towards comfort care measures with the next 24-48 hours and for that reason the PEG tube insertion a tracheostomy tube insertion has been canceled for now. The blood gases from today showed a pH of 7.44 with a pCO2 of 45 and pO2 of 78. Chest x- ray from today showing ET tube is in a good location. The patient has a PICC line in the right upper extremity. NG tube is in a good patient. There are diffuse bilateral pulmonary infiltrate with aspirin. Right more than left. Objective - Vital Signs Vital signs: Vital Signs Temp 97.7 F 02/02/20 04:00 Pulse 57 L 02/02/20 07:00 Resp 25 H 02/02/20 07:00 BP 117/77 02/02/20 01:00 Pulse Ox 98 02/02/20 07:00 Intake & Output 02/01/20 02/02/20 02/02/20 18:59 06:59 18:59 Intake Total 1111.818 1181.382 23 Output Total 1365 1025 65 Balance 216.141 79.382 -42 Weight 89.3 kg 91.2 kg Intake: IV 276 243 23 .9 @ KVO 240 210 20 pressure bags 36 33 3 Intake, IV Titration 289.141 255.382 Amount propofoL 1,000 mg In 289.141 255.382 Empty Bag 1 bag @ Titrate IV .Q0M [facility] Rx#: [id number] Oral 100 Tube Feeding 516 516 Other 400 90 Output: Urine 1365 1025 65 Other: Voiding Method Indwelling Catheter Indwelling Catheter ABP, PAP, CO, CI - Last Documented Arterial Blood Pressure 99/42 - Exam GENERAL EXAM: Alert, very pleasant 79-year-old female patient which is currently intubated on a mechanical ventilator. Orogastric and orotracheal tube are both in place. HEAD: Normocephalic. EYES: Normal reaction of pupils, equal size. NOSE: Clear with pink turbinates. THROAT: No erythema or exudates. NECK: No masses, no JVD. A subclavian catheter was established on the right side. on the right side.CHEST: No chest wall deformity. LUNGS: Equal air entry with scattered rhonchi., The patient is crackles lung bases bilaterally. CVS: S1 and S2 normal with no audible murmur, irregular rhythm. ABDOMEN: No hepatosplenomegaly, normal bowel sounds, no guarding or rigidity. SPINE: No scoliosis or deformity SKIN: No rashes CENTRAL NERVOUS SYSTEM: the patient is currently sedated, comfortable centimeters the mechanical ventilator. EXTREMITIES: There is no peripheral edema. No clubbing, no cyanosis. Peripheral pulses are intact. - Labs CBC & Chem 7: 02/02/20 04:00 02/02/20 04:00 Labs: Abnormal Lab Results - Last 24 Hours (Table) 02/01/20 02/01/20 02/01/20 Range/Units 04:50 12:22 18:07 RBC (3.80-5.40) m/uL Hgb (11.4-16.0) gm/dL Hct (34.0-46.0) % RDW (11.5-15.5) % Lymphocytes # (1.0-4.8) k/uL ABG pO2 (83-108) mmHg ABG HCO3 (21-25) mmol/L ABG Total CO2 (19-24) mmol/L ABG O2 Saturation (94-97) % Carbon Dioxide (22-30) mmol/L BUN (7-17) mg/dL Creatinine (0.52-1.04) mg/dL POC Glucose (mg/dL) 110 H 103 H (75-99) mg/dL Calcium (8.4-10.2) mg/dL Ferritin 320.1 H (10.0-291.0) ng/mL ALT (4-34) U/L Total Protein (6.3-8.2) g/dL Albumin (3.5-5.0) g/dL 02/01/20 02/02/20 02/02/20 Range/Units 23:46 04:00 04:00 RBC 2.23 L (3.80-5.40) m/uL Hgb 7.0 L (11.4-16.0) gm/dL Hct 21.8 L (34.0-46.0) % RDW 17.3 H (11.5-15.5) % Lymphocytes # 0.6 L (1.0-4.8) k/uL ABG pO2 (83-108) mmHg ABG HCO3 (21-25) mmol/L ABG Total CO2 (19-24) mmol/L ABG O2 Saturation (94-97) % Carbon Dioxide 33 H (22-30) mmol/L BUN 28 H (7-17) mg/dL Creatinine 0.50 L (0.52-1.04) mg/dL POC Glucose (mg/dL) 109 H (75-99) mg/dL Calcium 8.0 L (8.4-10.2) mg/dL Ferritin (10.0-291.0) ng/mL ALT 40 H (4-34) U/L Total Protein 4.2 L (6.3-8.2) g/dL Albumin 1.9 L (3.5-5.0) g/dL 02/02/20 02/02/20 Range/Units 04:55 05:11 RBC (3.80-5.40) m/uL Hgb (11.4-16.0) gm/dL Hct (34.0-46.0) % RDW (11.5-15.5) % Lymphocytes # (1.0-4.8) k/uL ABG pO2 78 L (83-108) mmHg ABG HCO3 31 H (21-25) mmol/L ABG Total CO2 32 H (19-24) mmol/L ABG O2 Saturation 97.8 H (94-97) % Carbon Dioxide (22-30) mmol/L BUN (7-17) mg/dL Creatinine (0.52-1.04) mg/dL POC Glucose (mg/dL) 114 H (75-99) mg/dL Calcium (8.4-10.2) mg/dL Ferritin (10.0-291.0) ng/mL ALT (4-34) U/L Total Protein (6.3-8.2) g/dL Albumin (3.5-5.0) g/dL Assessment and Plan Plan: 1 acute hypoxic respiratory failure predominantly secondary to Covid 19 related pneumonia and there is also some contribution to her hypoxemia because of the pulmonary embolism. The predominant factor contributing to respiratory failure is Covid 19 related pneumonia as the patient developed diffuse breath and pulmonary infiltrates with progressive hypoxemia despite ongoing treatment. The patient was intubated on 01/16/2020 and the patient currently remains intubated sedated on a mechanical ventilator. Blood gases was noted. Ventilator settings were noted. Chest x-ray findings were also noted and the patient is diffuse but the pulmonary infiltrates consistent with the viral pneumonia. The patient completed the course of Remdesivir and the patient also received convalescent plasma 1. patient is failing sedation holidays and she has demonstrated very poor weaning parameters not a candidate for weaning at this point in time. 2 acute right-sided pulmonary embolism, probably related to Covid 19 related hypercoagulability.The patient is currently on Lovenox therapeutic dose, 60 mg subcu every 12 hours. 3 Covid 19 related pneumonia 4 recurrent atrial fibrillation with rapid response. The patient is on Metoprolol and amiodarone. Patient is already and anticoagulation. 5 hypotension, recovered 6 remote history of DVT and the patient was taken Xarelto on outpatient basis 7 hypertension 8 acute kidney injury, recovered and the renal function improved and normalized 9 non-anion gap metabolic acidosis, recovered 10 Chronic anemia, multifactorial. plan Continue ventilator support, drp peep down to 6, repeat blood gas in 30 minutes. Add Lasix 40 mg IVevery 12 hours Completed 10 days course of Decadron 6 mg , completed the course of Remdesivir per protocol in addition to the rest of the supplements including vitamin C, vitamin D, melatonin, Pepcid and zinc The patient received a unit of convalescent plasma. Lovenox therapeutic dose of 90 mg every 12 hours. monitor inflammatory markers Cardiac rhythm is atrial fibrillation /sinus and the patient is on Metoprolol and amiodarone. going to drop down the PEEP down to 6. Repeated blood gases in an hour. I'm going to diabetes the patient over the next 24 hours. We'll give the patient is sedation holiday and assess her candidacy for weaning. I'm not much optimistic. This will largely depend on her mental status and her weaning parameters. No plans for tracheostomy. I'm going to touch base with the family again today. Condition is critical we'll continue to follow. The patient be kept in the intensive care unit for now.This is a critically care evaluation that was done and more than 30 minutes. Time with Patient: Greater than 30
[2020-02-02] MEDS: ALBUTEROL HFA INHALER INHALATION SCH ×4 (08:16→21:48)
[2020-02-02] MEDS ORDERED: FUROSEMIDE 10 MG/ML 2 ML VIAL IV SCH (09:00)
[2020-02-02 09:35] LABS: ABG Base Excess 7.4 mmol/L; ABG HCO3 31 mmol/L (21-25); ABG PCO2 42 mmHg (35-45); ABG PH 7.48 (7.35-7.45); ABG PO2 77 mmHg (83-108); ABG TCO2 32 mmol/L (19-24)
[2020-02-02 09:39] LABS: Allen Test Performed? no
[2020-02-02] MEDS: ASCORBIC ACID 500 MG TAB PO SCH (09:48)
[2020-02-02] MEDS: CHOLECALCIFEROL 1,000 UNIT TAB PO SCH (09:48)
[2020-02-02] MEDS: FAMOTIDINE 20 MG TAB PO SCH (09:48)
[2020-02-02] MEDS: METOPROLOL TARTRATE 50 MG TAB PO SCH ×2 (09:48→21:42)
[2020-02-02] MEDS: CHLORHEXIDINE GLUCONATE 15 ML CUP MUCOUS MEM SCH ×2 (09:48→21:42)
[2020-02-02] MEDS: AMIODARONE 200 MG TAB PO SCH (09:48)
[2020-02-02] MEDS: FUROSEMIDE 10 MG/ML 4 ML VIAL IV SCH ×2 (09:49→21:42)
[2020-02-02] MEDS: ZINC SULFATE 220 MG CAP PO SCH (09:49)
[2020-02-02] MEDS: ENOXAPARIN 60 MG/0.6 ML SYRINGE SQ SCH (09:52)
--- NOTE | 2020-02-02 10:46 | P.PN ---
Subjective Progress Note Date: 02/02/20 Pt had no acute events overnight. ICU team is in discussion with Pt family regarding comfort vs trach/peg trial. Family appears to be leaning toward trach/peg. Nursing advises me that patient does follow commands when sedation is weaned, but she appears quite tachypneic and distressed. Objective - Vital Signs Vital signs: Vital Signs Temp 98.6 F 02/02/20 08:00 Pulse 60 02/02/20 10:00 Resp 25 H 02/02/20 10:00 BP 117/77 02/02/20 01:00 Pulse Ox 98 02/02/20 10:00 Intake & Output 02/01/20 02/02/20 02/02/20 18:59 06:59 18:59 Intake Total 8724.770 7048.382 296.404 Output Total 1365 1025 365 Balance 216.141 79.382 -68.596 Weight 89.3 kg 91.2 kg Intake: IV 276 243 92 .9 @ KVO 240 210 80 pressure bags 36 33 12 Intake, IV Titration 289.141 255.382 75.404 Amount propofoL 1,000 mg In 289.141 255.382 75.404 Empty Bag 1 bag @ Titrate IV .Q0M [facility] Rx#: [id number] Oral 100 Tube Feeding 516 516 129 Other 400 90 Output: Urine 1365 1025 365 Other: Voiding Method Indwelling Catheter Indwelling Catheter Indwelling Catheter ABP, PAP, CO, CI - Last Documented Arterial Blood Pressure 108/43 - Exam Gen: Intubated, sedated HEENT: normocephalic, atraumatic, good hearing acuity, moist mucous membranes Resp: Vented, tidal volume 350, FiO2 45%, PEEP 6, respiratory rate 25 CVS: good distal perfusion x 4, RRR, no murmurs, clicks, gallops GI: soft, NTTP, ND : no SPT, no CVAT, stanton catheter is present MSK: no pitting edema, no clubbing Neuro: non-focal, no sensory deficits, appropriate tone - Labs CBC & Chem 7: 02/02/20 04:00 02/02/20 04:00 Labs: Abnormal Lab Results - Last 24 Hours (Table) 02/01/20 02/01/20 02/01/20 Range/Units 12:22 18:07 23:46 RBC (3.80-5.40) m/uL Hgb (11.4-16.0) gm/dL Hct (34.0-46.0) % RDW (11.5-15.5) % Lymphocytes # (1.0-4.8) k/uL ABG pH (7.35-7.45) ABG pO2 (83-108) mmHg ABG HCO3 (21-25) mmol/L ABG Total CO2 (19-24) mmol/L ABG O2 Saturation (94-97) % Carbon Dioxide (22-30) mmol/L BUN (7-17) mg/dL Creatinine (0.52-1.04) mg/dL POC Glucose (mg/dL) 110 H 103 H 109 H (75-99) mg/dL Calcium (8.4-10.2) mg/dL ALT (4-34) U/L Total Protein (6.3-8.2) g/dL Albumin (3.5-5.0) g/dL 02/02/20 02/02/20 02/02/20 Range/Units 04:00 04:00 04:55 RBC 2.23 L (3.80-5.40) m/uL Hgb 7.0 L (11.4-16.0) gm/dL Hct 21.8 L (34.0-46.0) % RDW 17.3 H (11.5-15.5) % Lymphocytes # 0.6 L (1.0-4.8) k/uL ABG pH (7.35-7.45) ABG pO2 78 L (83-108) mmHg ABG HCO3 31 H (21-25) mmol/L ABG Total CO2 32 H (19-24) mmol/L ABG O2 Saturation 97.8 H (94-97) % Carbon Dioxide 33 H (22-30) mmol/L BUN 28 H (7-17) mg/dL Creatinine 0.50 L (0.52-1.04) mg/dL POC Glucose (mg/dL) (75-99) mg/dL Calcium 8.0 L (8.4-10.2) mg/dL ALT 40 H (4-34) U/L Total Protein 4.2 L (6.3-8.2) g/dL Albumin 1.9 L (3.5-5.0) g/dL 02/02/20 02/02/20 Range/Units 05:11 09:31 RBC (3.80-5.40) m/uL Hgb (11.4-16.0) gm/dL Hct (34.0-46.0) % RDW (11.5-15.5) % Lymphocytes # (1.0-4.8) k/uL ABG pH 7.48 H (7.35-7.45) ABG pO2 77 L (83-108) mmHg ABG HCO3 31 H (21-25) mmol/L ABG Total CO2 32 H (19-24) mmol/L ABG O2 Saturation 98.0 H (94-97) % Carbon Dioxide (22-30) mmol/L BUN (7-17) mg/dL Creatinine (0.52-1.04) mg/dL POC Glucose (mg/dL) 114 H (75-99) mg/dL Calcium (8.4-10.2) mg/dL ALT (4-34) U/L Total Protein (6.3-8.2) g/dL Albumin (3.5-5.0) g/dL Assessment and Plan Assessment: 1. Acute Hypoxemic Respiratory Failure secondary to ARDS 2. ARDS secondary to COVID-19 3. Bicytopenia: Anemia/Thrombocytopenia 4. Anasarca 5. Pulmonary Embolism without cor pulmonale, History of DVT 6. Paroxysmal Atrial Fibrillation with RVR 7. Enterococcus and E. coli Complicated UTI 79 year old woman with history of HTN, DVT presented with dyspnea and found to have acute hypoxemic respiratory failure secondary to COVID-19 positive status as well as pulmonary embolism discovered on admission. She was discovered to be in A Fib with RVR while on the selective unit, and was ultimately controlled with metoprolol and amiodarone. She developed ARDS during her hospitalization, and ultimately required mechanical ventilation. She was intubated on 01/15, and since that time has not been able to be weaned. Covid 19 pneumonia with acute hypoxic respiratory failure, ARDS - Failing weaning trials. - Completed Remdesivir on 01/15 - s/p Dexamethasone day #17 days completed - Status post convalescent plasma 01/14 - Pulmonary discussed case with family, family considering not pursuing PEG and trach placement, according to nursing staff family is leaning towards comfort care.. - Continue zinc, vitamin C, vitamin D, Pepcid, and melatonin Anemia, undetermined cause, thrombocytopenia, likely reactive - 1 unit pRBC 01/25/2020 - Stable now - suspect due to slow leak from TLC site. - Lovenox. dose adjusted by pulm for bleeding - Pulm wants to hold off transfusion at this point DIffuse Anasarca - Lasix X 1 given 01/22, repeated 01/25 Pulmonary embolus without right ventricular strain, history of prior DVT - Lovenox P. A fib with RVR - lovenox, amio - now in NSR Entercoccus and E coli UTI -Status post treatment with Levaquin, stop date 01/31 Thrombocytopenia KALYAN due to ATN with resultant metabolic acidosis and hyperphosphatemia, resolved Septic shock, resolved Hypokalemia, resolved DVT prophylaxis: Lovenox for PE Discussed with: Nursing, ICU team Anticipated discharge: undetermined Anticipated discharge place: Undetermined
[2020-02-02] MEDS: CLEVIDIPINE BUTYRATE 25 MG in EMPTY BAG 1 BAG IV SCH ×2 (12:03→20:58)
[2020-02-02 12:18] LABS: Glucose,Whole Blood 102 mg/dL (75-99)
[2020-02-02 13:20] LABS: ABG Base Excess 8.2 mmol/L; ABG HCO3 32 mmol/L (21-25); ABG PCO2 45 mmHg (35-45); ABG PH 7.46 (7.35-7.45); ABG PO2 70 mmHg (83-108); ABG TCO2 33 mmol/L (19-24)
[2020-02-02 13:21] LABS: Allen Test Performed? no
--- NOTE | 2020-02-02 14:55 | P.PN ---
Subjective Progress Note Date: 02/02/20 CHIEF COMPLAINT: Covid 19 pneumonia HISTORY OF PRESENT ILLNESS: Patient remains in the ICU and on mechanical ventilation. Surgical service has been following patient for possible trach and PEG tube placement. Family has declined trach and PEG tube placement. Afebrile. WBC 4.3 hemoglobin 7.0 PHYSICAL EXAM: VITAL SIGNS: Reviewed. GENERAL: Well-developed in no acute distress. HEENT: No sclera icterus. Extraocular movements grossly intact. Moist buccal mucosa. Head is atraumatic, normocephalic. ABDOMEN: Soft. Nondistended. Nontender. NEUROLOGIC: Alert and oriented. Cranial nerves II through XII grossly intact. ASSESSMENT: 1. Acute hypoxic respiratory failure with Covid 19 pneumonia and pulmonary embolism 2. Severe protein calorie malnutrition PLAN: -Continue supportive care -Family has declined trach and PEG tube placement Physician [employer] Tender note has been reviewed by physician. Signing provider agrees with the documented findings, assessment, and plan of care. Objective - Vital Signs Vital signs: Vital Signs Temp 98.2 F 02/02/20 12:00 Pulse 77 02/02/20 12:00 Resp 26 H 02/02/20 12:00 BP 117/77 02/02/20 01:00 Pulse Ox 96 02/02/20 12:00 Intake & Output 02/01/20 02/02/20 02/02/20 18:59 06:59 18:59 Intake Total 1430.712 9810.382 505.225 Output Total 1365 1025 1865 Balance 216.141 79.382 -1359.775 Weight 89.3 kg 91.2 kg Intake: IV 276 243 161 .9 @ KVO 240 210 140 pressure bags 36 33 21 Intake, IV Titration 289.141 255.382 86.225 Amount Clevidipine Butyrate 25 2.066 mg In Empty Bag 1 bag @ 1 MG/HR 2 mls/hr IV .Q24H [facility] Rx#:[id number] propofoL 1,000 mg In 289.141 255.382 84.159 Empty Bag 1 bag @ Titrate IV .Q0M [facility] Rx#: [id number] Oral 100 Tube Feeding 516 516 258 Other 400 90 Output: Urine 1365 1025 1865 Other: Voiding Method Indwelling Catheter Indwelling Catheter Indwelling Catheter ABP, PAP, CO, CI - Last Documented Arterial Blood Pressure 163/80 - Labs CBC & Chem 7: 02/02/20 04:00 02/02/20 04:00 Labs: Abnormal Lab Results - Last 24 Hours (Table) 02/01/20 02/01/20 02/02/20 Range/Units 18:07 23:46 04:00 RBC 2.23 L (3.80-5.40) m/uL Hgb 7.0 L (11.4-16.0) gm/dL Hct 21.8 L (34.0-46.0) % RDW 17.3 H (11.5-15.5) % Lymphocytes # 0.6 L (1.0-4.8) k/uL ABG pH (7.35-7.45) ABG pO2 (83-108) mmHg ABG HCO3 (21-25) mmol/L ABG Total CO2 (19-24) mmol/L ABG O2 Saturation (94-97) % Carbon Dioxide (22-30) mmol/L BUN (7-17) mg/dL Creatinine (0.52-1.04) mg/dL POC Glucose (mg/dL) 103 H 109 H (75-99) mg/dL Calcium (8.4-10.2) mg/dL ALT (4-34) U/L Total Protein (6.3-8.2) g/dL Albumin (3.5-5.0) g/dL 02/02/20 02/02/20 02/02/20 Range/Units 04:00 04:55 05:11 RBC (3.80-5.40) m/uL Hgb (11.4-16.0) gm/dL Hct (34.0-46.0) % RDW (11.5-15.5) % Lymphocytes # (1.0-4.8) k/uL ABG pH (7.35-7.45) ABG pO2 78 L (83-108) mmHg ABG HCO3 31 H (21-25) mmol/L ABG Total CO2 32 H (19-24) mmol/L ABG O2 Saturation 97.8 H (94-97) % Carbon Dioxide 33 H (22-30) mmol/L BUN 28 H (7-17) mg/dL Creatinine 0.50 L (0.52-1.04) mg/dL POC Glucose (mg/dL) 114 H (75-99) mg/dL Calcium 8.0 L (8.4-10.2) mg/dL ALT 40 H (4-34) U/L Total Protein 4.2 L (6.3-8.2) g/dL Albumin 1.9 L (3.5-5.0) g/dL 02/02/20 02/02/20 02/02/20 Range/Units 09:31 12:16 13:13 RBC (3.80-5.40) m/uL Hgb (11.4-16.0) gm/dL Hct (34.0-46.0) % RDW (11.5-15.5) % Lymphocytes # (1.0-4.8) k/uL ABG pH 7.48 H 7.46 H (7.35-7.45) ABG pO2 77 L 70 L (83-108) mmHg ABG HCO3 31 H 32 H (21-25) mmol/L ABG Total CO2 32 H 33 H (19-24) mmol/L ABG O2 Saturation 98.0 H (94-97) % Carbon Dioxide (22-30) mmol/L BUN (7-17) mg/dL Creatinine (0.52-1.04) mg/dL POC Glucose (mg/dL) 102 H (75-99) mg/dL Calcium (8.4-10.2) mg/dL ALT (4-34) U/L Total Protein (6.3-8.2) g/dL Albumin (3.5-5.0) g/dL
[2020-02-02 18:03] LABS: Glucose,Whole Blood 138 mg/dL (75-99)
[2020-02-02] MEDS ORDERED: DEXMEDETOMIDINE/0.9% NACL(PMX) 400 MCG in EMPTY BAG 1 BAG IV SCH (21:00)
[2020-02-02] MEDS: INSULIN DETEMIR (LEVEMIR) 100 UNIT/ML SYR SQ SCH (21:42)
[2020-02-02] MEDS: MELATONIN 5 MG TABLET PO SCH (21:42)
[2020-02-02] MEDS: ENOXAPARIN 100 MG/ML SYRINGE SQ SCH (21:42)
[2020-02-02] MEDS: ACETAMINOPHEN TAB 325 MG TAB PO PRN (23:50)
[2020-02-02 23:53] LABS: Glucose,Whole Blood 136 mg/dL (75-99)
[2020-02-03 04:12] LABS: Anisocytosis Slight; Basophils % (A) 0 %; Eosinophils # (A) 0.2 k/uL (0-0.7); Eosinophils % (A) 5 %; HCT 22.6 % (34.0-46.0); HGB 7.5 gm/dL (11.4-16.0); Hypochromasia Moderate; Lymphocytes # (A) 0.6 k/uL (1.0-4.8); Lymphocytes % (A) 14 %; MCH 31.9 pg (25.0-35.0); MCHC 33.4 g/dL (31.0-37.0); MCV 95.7 fL (80.0-100.0); Macrocytosis Slight; Mean Platelet Volume 9.4; Monocytes # (A) 0.2 k/uL (0-1.0); Monocytes % (A) 5 %; Neutrophils # (A) 3.1 k/uL (1.3-7.7); Neutrophils % (A) 74 %; Platelet Count 176 k/uL (150-450); Poikilocytosis Slight; RBC 2.36 m/uL (3.80-5.40); RDW 17.1 % (11.5-15.5); WBC 4.2 k/uL (3.8-10.6)
[2020-02-03 04:35] LABS: ALT 35 U/L (4-34); AST 27 U/L (14-36); African American GFR (CKD) >90 (>60 ml/min/1.73 sqM); Albumin 1.9 g/dL (3.5-5.0); Alkaline Phosphatase 81 U/L (38-126); Anion Gap -1 mmol/L; Blood Urea Nitrogen 29 mg/dL (7-17); Calcium 8.2 mg/dL (8.4-10.2); Carbon Dioxide 35 mmol/L (22-30); Chloride 103 mmol/L (98-107); Glucose 109 mg/dL (74-99); Non-African American GFR(CKD) >90 (>60 ml/min/1.73 sqM); Potassium 3.2 mmol/L (3.5-5.1); Sodium 137 mmol/L (137-145); Total Bilirubin 0.4 mg/dL (0.2-1.3); Total Protein 4.3 g/dL (6.3-8.2)
[2020-02-03] MEDS ORDERED: NOREPINEPHRIN 4 MG-0.9% NS PMX 4 MG/250 ML ML IV ONE (04:40)
[2020-02-03 05:14] LABS: ABG Base Excess 10.3 mmol/L; ABG HCO3 33 mmol/L (21-25); ABG Oxygen Saturation 98.9 % (94-97); ABG PCO2 41 mmHg (35-45); ABG PH 7.52 (7.35-7.45); ABG PO2 81 mmHg (83-108); ABG TCO2 34 mmol/L (19-24); Allen Test Performed? Yes
[2020-02-03] MEDS: POTASSIUM BICARBONATE/CIT AC 20 MEQ TABLET.EFF NG-TUBE SCH ×2 (05:31→06:36)
[2020-02-03 05:47] LABS: Glucose,Whole Blood 107 mg/dL (75-99)
[2020-02-03] MEDS: INSULIN ASPART (NovoLOG) 100 UNIT/ML VIAL SQ SCH ×3 (05:49→19:06)
--- NOTE | 2020-02-03 08:34 | P.PN ---
Subjective Progress Note Date: 02/03/20 A 79-year-old female patient who was admitted on 01/09/2020 with COVID 19 related pneumonia and acute pulmonary embolism. I was involved in the care of her back then. I'm seeing her today in follow-up. The patient's course was noted . She had developed hypoxic respiratory failure requiring intubation mechanical ventilation was done on 01/16/2020. She has been on a mechanical ventilator since. She has not shown significant improvement. She received remdesivir and convalescent plasma. The wanted everything done including a tracheostomy and PEG tube insertion. The patient was scheduled to undergo the procedure yesterday. This was not done as the changed his mind. The patient may possibly go with comfort care measures. For now, the patient remains intubated on a mechanical ventilator. She is an assist-control mode rate of 25 and a tidal volume of 350 and FiO2 of 45% and PEEP of 10. The patient has had numerous awakening trials which she failed and the patient will weaning parameters. She is currently is sedated with propofol running at 35 g per KG per minute. The patient on enteral feeding for nutritional support with vital high protein. This is running at 40 mL an hour. She has developed a UTI and she is being treated with antibiotics. Urine cultures have shown E. coli Enterococcus faecalis. I believe this patient's family is opting towards comfort care measures with the next 24-48 hours and for that reason the PEG tube insertion a tracheostomy tube insertion has been canceled for now. The blood gases from today showed a pH of 7.44 with a pCO2 of 45 and pO2 of 78. Chest x- ray from today showing ET tube is in a good location. The patient has a PICC line in the right upper extremity. NG tube is in a good patient. There are diffuse bilateral pulmonary infiltrate with aspirin. Right more than left. today's evaluation of 02/03/2020, the patient is currently on Precedex for sedation. The drip is running at 0.7 g per KG. She is well sedated for now and she is calm and comfortable. He is on mechanical ventilator on assist control mode at the rate of 25 with a tidal volume of 650 and FiO2 of 45% and PEEP of 6. The pH is at 7.52 with a pCO2 of 41 and pO2 of 81. Chest x-ray from this morning shows adequate positioning of the atrial. NG tube is in a good location. There is still bilateral pulmonary infiltrates and possibly some effusion the lung bases. The patient remains off Decadron. The patient was given a sedation holiday yesterday. She has been weaning parameters. She underwent WEANING trials with a pressure support of 7 and a PEEP of 5 and the subsequent blood gases were adequate. Nevertheless, she was quite weak and I was has been and extubating this patient.she has taken Lovenox therapeutic doses of 90 mg subcu every 12 hours. She was started on Lasix yesterday and the fluid balance is -2.7 L over the past 24 hours. Blood work from today shows a potassium level of 3.2 to be replaced. Otherwise normal renal function. Slightly alkalotic with a serum bicarbonate 35. Objective - Vital Signs Vital signs: Vital Signs Temp 99.7 F H 02/03/20 04:00 Pulse 62 02/03/20 08:00 Resp 25 H 02/03/20 08:00 BP 137/72 02/03/20 06:00 Pulse Ox 95 02/03/20 08:00 Intake & Output 02/02/20 02/03/20 02/03/20 18:59 06:59 18:59 Intake Total 848.174 6918.929 66 Output Total 2815 1850 75 Balance -1978.863 -804.071 -9 Weight 85.6 kg Intake: IV 276 276 23 .9 @ KVO 240 240 20 pressure bags 36 36 3 Intake, IV Titration 87.137 163.929 Amount Clevidipine Butyrate 25 2.066 42.267 mg In Empty Bag 1 bag @ 1 MG/HR 2 mls/hr IV .Q24H [facility] Rx#:[id number] Dexmedetomidine/0.9% NaCl 24.624 (Pmx) 400 mcg In Empty Bag 1 bag @ Titrate IV . Q0M [facility] Rx#:[id number] propofoL 1,000 mg In 85.071 97.038 Empty Bag 1 bag @ Titrate IV .Q0M [facility] Rx#: [id number] Tube Feeding 473 516 43 Other 90 Output: Urine 2815 1850 75 Other: Voiding Method Indwelling Catheter Indwelling Catheter ABP, PAP, CO, CI - Last Documented Arterial Blood Pressure 90/45 - Exam GENERAL EXAM: Alert, very pleasant 79-year-old female patient which is currently intubated on a mechanical ventilator. Orogastric and orotracheal tube are both in place. HEAD: Normocephalic. EYES: Normal reaction of pupils, equal size. NOSE: Clear with pink turbinates. THROAT: No erythema or exudates. NECK: No masses, no JVD. A subclavian catheter was established on the right side. on the right side.CHEST: No chest wall deformity. LUNGS: Equal air entry with scattered rhonchi., The patient is crackles lung bases bilaterally. CVS: S1 and S2 normal with no audible murmur, irregular rhythm. ABDOMEN: No hepatosplenomegaly, normal bowel sounds, no guarding or rigidity. SPINE: No scoliosis or deformity SKIN: No rashes CENTRAL NERVOUS SYSTEM: the patient is currently sedated, comfortable centimeters the mechanical ventilator. EXTREMITIES: There is no peripheral edema. No clubbing, no cyanosis. Pe ripheral pulses are intact. - Labs CBC & Chem 7: 02/03/20 04:00 02/03/20 04:00 Labs: Abnormal Lab Results - Last 24 Hours (Table) 02/02/20 02/02/20 02/02/20 Range/Units 09:31 12:16 13:13 RBC (3.80-5.40) m/uL Hgb (11.4-16.0) gm/dL Hct (34.0-46.0) % RDW (11.5-15.5) % Lymphocytes # (1.0-4.8) k/uL ABG pH 7.48 H 7.46 H (7.35-7.45) ABG pO2 77 L 70 L (83-108) mmHg ABG HCO3 31 H 32 H (21-25) mmol/L ABG Total CO2 32 H 33 H (19-24) mmol/L ABG O2 Saturation 98.0 H (94-97) % Potassium (3.5-5.1) mmol/L Carbon Dioxide (22-30) mmol/L BUN (7-17) mg/dL Creatinine (0.52-1.04) mg/dL Glucose (74-99) mg/dL POC Glucose (mg/dL) 102 H (75-99) mg/dL Calcium (8.4-10.2) mg/dL ALT (4-34) U/L Total Protein (6.3-8.2) g/dL Albumin (3.5-5.0) g/dL 02/02/20 02/02/20 02/03/20 Range/Units 18:00 23:41 04:00 RBC 2.36 L (3.80-5.40) m/uL Hgb 7.5 L (11.4-16.0) gm/dL Hct 22.6 L (34.0-46.0) % RDW 17.1 H (11.5-15.5) % Lymphocytes # 0.6 L (1.0-4.8) k/uL ABG pH (7.35-7.45) ABG pO2 (83-108) mmHg ABG HCO3 (21-25) mmol/L ABG Total CO2 (19-24) mmol/L ABG O2 Saturation (94-97) % Potassium (3.5-5.1) mmol/L Carbon Dioxide (22-30) mmol/L BUN (7-17) mg/dL Creatinine (0.52-1.04) mg/dL Glucose (74-99) mg/dL POC Glucose (mg/dL) 138 H 136 H (75-99) mg/dL Calcium (8.4-10.2) mg/dL ALT (4-34) U/L Total Protein (6.3-8.2) g/dL Albumin (3.5-5.0) g/dL 02/03/20 02/03/20 02/03/20 Range/Units 04:00 05:05 05:46 RBC (3.80-5.40) m/uL Hgb (11.4-16.0) gm/dL Hct (34.0-46.0) % RDW (11.5-15.5) % Lymphocytes # (1.0-4.8) k/uL ABG pH 7.52 H (7.35-7.45) ABG pO2 81 L (83-108) mmHg ABG HCO3 33 H (21-25) mmol/L ABG Total CO2 34 H (19-24) mmol/L ABG O2 Saturation 98.9 H (94-97) % Potassium 3.2 L (3.5-5.1) mmol/L Carbon Dioxide 35 H (22-30) mmol/L BUN 29 H (7-17) mg/dL Creatinine 0.49 L (0.52-1.04) mg/dL Glucose 109 H (74-99) mg/dL POC Glucose (mg/dL) 107 H (75-99) mg/dL Calcium 8.2 L (8.4-10.2) mg/dL ALT 35 H (4-34) U/L Total Protein 4.3 L (6.3-8.2) g/dL Albumin 1.9 L (3.5-5.0) g/dL Assessment and Plan Plan: 1 acute hypoxic respiratory failure predominantly secondary to Covid 19 related pneumonia and there is also some contribution to her hypoxemia because of the pulmonary embolism. The predominant factor contributing to respiratory failure is Covid 19 related pneumonia as the patient developed diffuse breath and pulmonary infiltrates with progressive hypoxemia despite ongoing treatment. The patient was intubated on 01/16/2020 and the patient currently remains intubated sedated on a mechanical ventilator. Blood gases was noted. Ventilator settings were noted. Chest x-ray findings were also noted and the patient is diffuse but the pulmonary infiltrates consistent with the viral pneumonia. The patient completed the course of Remdesivir and the patient also received convalescent plasma 1. patient is did well yesterday with a spontaneous breathing trial. Nevertheless she was quite weak and lower has that and extubating the patient because of concerns of respiratory failure because of a generalized weakness. I prefer to proceed with a PEG and trach and proceed with a slow wean on this patient. X-ray findings are stable on today's evaluation. 2 acute right-sided pulmonary embolism, probably related to Covid 19 related hypercoagulability.The patient is currently on Lovenox therapeutic dose, 60 mg subcu every 12 hours. 3 Covid 19 related pneumonia 4 recurrent atrial fibrillation with rapid response. The patient is on Metoprolol and amiodarone. Patient is already and anticoagulation. 5 hypotension, recovered 6 remote history of DVT and the patient was taken Xarelto on outpatient basis 7 hypertension 8 acute kidney injury, recovered and the renal function improved and normalized 9 non-anion gap metabolic acidosis, recovered 10 Chronic anemia, multifactorial. plan Continue ventilator support, drop peep down to 5 Lasix 40 mg IVevery 12 hours the patient is in a negative fluid balance. Completed 10 days course of Decadron 6 mg , completed the course of Remdesivir per protocol in addition to the rest of the supplements including vitamin C, vitamin D, melatonin, Pepcid and zinc The patient received a unit of convalescent plasma. Lovenox therapeutic dose of 90 mg every 12 hours. monitor inflammatory markers Cardiac rhythm is atrial fibrillation /sinus and the patient is on Metoprolol and amiodarone. the patient was given a sedation holiday. She underwent a spontaneous breathing trial. She was quite weak for extubation. I am going to consider a tracheostomy tube insertion and I'm going to talk to the again about this issue. I'm going to consult general surgery regarding the possibility of a pack and trach. The patient be kept in the intensive care unit for now.This is a critically care evaluation that was done and more than 30 minutes. Time with Patient: Greater than 30
[2020-02-03] MEDS: ALBUTEROL HFA INHALER INHALATION SCH ×4 (09:12→19:26)
--- NOTE | 2020-02-03 09:54 | P.PN ---
Subjective Progress Note Date: 02/03/20 Pt's family still trying to decide whether to proceed with trach/peg versus trial of extubation. Pt appears to tolerate being off of sedation better with anxiolytic. Objective - Vital Signs Vital signs: Vital Signs Temp 99.7 F H 02/03/20 04:00 Pulse 56 L 02/03/20 09:00 Resp 25 H 02/03/20 09:00 BP 137/72 02/03/20 09:00 Pulse Ox 98 02/03/20 09:00 Intake & Output 02/02/20 02/03/20 02/03/20 18:59 06:59 18:59 Intake Total 620.888 8071.929 155 Output Total 2815 1850 210 Balance -1978.863 -804.071 -55 Weight 85.6 kg Intake: IV 276 276 69 .9 @ KVO 240 240 60 pressure bags 36 36 9 Intake, IV Titration 87.137 163.929 Amount Clevidipine Butyrate 25 2.066 42.267 mg In Empty Bag 1 bag @ 1 MG/HR 2 mls/hr IV .Q24H [facility] Rx#:[id number] Dexmedetomidine/0.9% NaCl 24.624 (Pmx) 400 mcg In Empty Bag 1 bag @ Titrate IV . Q0M [facility] Rx#:[id number] propofoL 1,000 mg In 85.071 97.038 Empty Bag 1 bag @ Titrate IV .Q0M [facility] Rx#: [id number] Tube Feeding 473 516 86 Other 90 Output: Urine 2815 1850 210 Other: Voiding Method Indwelling Catheter Indwelling Catheter Indwelling Catheter ABP, PAP, CO, CI - Last Documented Arterial Blood Pressure 126/43 - Exam Gen: Intubated, sedated HEENT: normocephalic, atraumatic, good hearing acuity, moist mucous membranes Resp: Vented, tidal volume 350, FiO2 45%, PEEP 5, respiratory rate 25 CVS: good distal perfusion x 4, RRR, no murmurs, clicks, gallops GI: soft, NTTP, ND : no SPT, no CVAT, stanton catheter is present MSK: no pitting edema, no clubbing Neuro: non-focal, no sensory deficits, appropriate tone - Labs CBC & Chem 7: 02/03/20 04:00 02/03/20 04:00 Labs: Abnormal Lab Results - Last 24 Hours (Table) 02/02/20 02/02/20 02/02/20 Range/Units 12:16 13:13 18:00 RBC (3.80-5.40) m/uL Hgb (11.4-16.0) gm/dL Hct (34.0-46.0) % RDW (11.5-15.5) % Lymphocytes # (1.0-4.8) k/uL ABG pH 7.46 H (7.35-7.45) ABG pO2 70 L (83-108) mmHg ABG HCO3 32 H (21-25) mmol/L ABG Total CO2 33 H (19-24) mmol/L ABG O2 Saturation (94-97) % Potassium (3.5-5.1) mmol/L Carbon Dioxide (22-30) mmol/L BUN (7-17) mg/dL Creatinine (0.52-1.04) mg/dL Glucose (74-99) mg/dL POC Glucose (mg/dL) 102 H 138 H (75-99) mg/dL Calcium (8.4-10.2) mg/dL ALT (4-34) U/L Total Protein (6.3-8.2) g/dL Albumin (3.5-5.0) g/dL 02/02/20 02/03/20 02/03/20 Range/Units 23:41 04:00 04:00 RBC 2.36 L (3.80-5.40) m/uL Hgb 7.5 L (11.4-16.0) gm/dL Hct 22.6 L (34.0-46.0) % RDW 17.1 H (11.5-15.5) % Lymphocytes # 0.6 L (1.0-4.8) k/uL ABG pH (7.35-7.45) ABG pO2 (83-108) mmHg ABG HCO3 (21-25) mmol/L ABG Total CO2 (19-24) mmol/L ABG O2 Saturation (94-97) % Potassium 3.2 L (3.5-5.1) mmol/L Carbon Dioxide 35 H (22-30) mmol/L BUN 29 H (7-17) mg/dL Creatinine 0.49 L (0.52-1.04) mg/dL Glucose 109 H (74-99) mg/dL POC Glucose (mg/dL) 136 H (75-99) mg/dL Calcium 8.2 L (8.4-10.2) mg/dL ALT 35 H (4-34) U/L Total Protein 4.3 L (6.3-8.2) g/dL Albumin 1.9 L (3.5-5.0) g/dL 02/03/20 02/03/20 Range/Units 05:05 05:46 RBC (3.80-5.40) m/uL Hgb (11.4-16.0) gm/dL Hct (34.0-46.0) % RDW (11.5-15.5) % Lymphocytes # (1.0-4.8) k/uL ABG pH 7.52 H (7.35-7.45) ABG pO2 81 L (83-108) mmHg ABG HCO3 33 H (21-25) mmol/L ABG Total CO2 34 H (19-24) mmol/L ABG O2 Saturation 98.9 H (94-97) % Potassium (3.5-5.1) mmol/L Carbon Dioxide (22-30) mmol/L BUN (7-17) mg/dL Creatinine (0.52-1.04) mg/dL Glucose (74-99) mg/dL POC Glucose (mg/dL) 107 H (75-99) mg/dL Calcium (8.4-10.2) mg/dL ALT (4-34) U/L Total Protein (6.3-8.2) g/dL Albumin (3.5-5.0) g/dL Assessment and Plan Assessment: 1. Acute Hypoxemic Respiratory Failure secondary to ARDS 2. ARDS secondary to COVID-19 3. Bicytopenia: Anemia/Thrombocytopenia 4. Anasarca 5. Pulmonary Embolism without cor pulmonale, History of DVT 6. Paroxysmal Atrial Fibrillation with RVR 7. Enterococcus and E. coli Complicated UTI 79 year old woman with history of HTN, DVT presented with dyspnea and found to have acute hypoxemic respiratory failure secondary to COVID-19 positive status as well as pulmonary embolism discovered on admission. She was discovered to be in A Fib with RVR while on the selective unit, and was ultimately controlled with metoprolol and amiodarone. She developed ARDS during her hospitalization, and ultimately required mechanical ventilation. She was intubated on 01/15, and since that time has not been able to be weaned. Covid 19 pneumonia with acute hypoxic respiratory failure, ARDS - Failing weaning trials. - Completed Remdesivir on 01/15 - s/p Dexamethasone day #17 days completed - Status post convalescent plasma 01/14 - Pulmonary discussed case with family, family considering pursuing PEG and trach placement, according to nursing staff family is not leaning towards comfort care.. - Continue zinc, vitamin C, vitamin D, Pepcid, and melatonin Anemia, undetermined cause, thrombocytopenia, likely reactive - 1 unit pRBC 01/25/2020 - Stable now - suspect due to slow leak from TLC site. - Lovenox. dose adjusted by pulm for bleeding - Pulm wants to hold off transfusion at this point DIffuse Anasarca - Lasix X 1 given 01/22, repeated 01/25 Pulmonary embolus without right ventricular strain, history of prior DVT - Lovenox P. A fib with RVR - lovenox, amio - now in NSR Entercoccus and E coli UTI -Status post treatment with Levaquin, stop date 01/31 Thrombocytopenia KALYAN due to ATN with resultant metabolic acidosis and hyperphosphatemia, resolved Septic shock, resolved Hypokalemia, resolved DVT prophylaxis: Lovenox for PE Discussed with: Nursing, ICU team Anticipated discharge: undetermined Anticipated discharge place: Undetermined
[2020-02-03] MEDS: AMIODARONE 200 MG TAB PO SCH (10:38)
[2020-02-03] MEDS: ENOXAPARIN 100 MG/ML SYRINGE SQ SCH ×2 (10:38→21:18)
[2020-02-03] MEDS: METOPROLOL TARTRATE 50 MG TAB PO SCH ×2 (10:38→21:17)
[2020-02-03] MEDS: ASCORBIC ACID 500 MG TAB PO SCH (10:38)
[2020-02-03] MEDS: CHLORHEXIDINE GLUCONATE 15 ML CUP MUCOUS MEM SCH ×2 (10:38→21:18)
[2020-02-03] MEDS: FAMOTIDINE 20 MG TAB PO SCH (10:38)
[2020-02-03] MEDS: CHOLECALCIFEROL 1,000 UNIT TAB PO SCH (10:38)
[2020-02-03] MEDS: ZINC SULFATE 220 MG CAP PO SCH (10:38)
[2020-02-03] MEDS: FUROSEMIDE 10 MG/ML 4 ML VIAL IV SCH ×2 (10:39→21:18)
--- NOTE | 2020-02-03 10:55 | XR ---
EXAMINATION TYPE: XR chest 1V DATE OF EXAM: 02/03/2020 COMPARISON: 02/02/2020 INDICATION: Intubated TECHNIQUE: Single frontal view of the chest is obtained. FINDINGS: The heart size is normal. The pulmonary vasculature is prominent. Diffuse patchy infiltrates are present bilaterally. Small left pleural effusion is present. Minimal r ight pleural effusion is likely present. Endotracheal tube tip is above the ollie. Nasogastric tube transverses the thorax. Right side PICC l ine tip is in superior vena cava region. IMPRESSION: 1. Stable patchy infiltrates bilaterally can be compatible with atypical pneumonia. 2. Lines and catheters discussed above
[2020-02-03 11:57] LABS: Glucose,Whole Blood 123 mg/dL (75-99)
--- NOTE | 2020-02-03 12:34 | P.PN ---
Subjective Progress Note Date: 02/03/20 CHIEF COMPLAINT: Covid 19 pneumonia HISTORY OF PRESENT ILLNESS: Patient seen and examined with Dr. Gomez. Patient remains in the ICU and on mechanical ventilation. Surgical service has been following patient for possible trach and PEG tube placement. Family has declined trach and PEG tube placement. Temporal 100.1 WBC 4.2 hemoglobin 7.5 PHYSICAL EXAM: VITAL SIGNS: Reviewed. GENERAL: Well-developed in no acute distress. HEENT: No sclera icterus. Extraocular movements grossly intact. Moist buccal mucosa. Head is atraumatic, normocephalic. ABDOMEN: Soft. Nondistended. Nontender. NEUROLOGIC: Patient is intubated. She is able to open her eyes ASSESSMENT: 1. Acute hypoxic respiratory failure with Covid 19 pneumonia and pulmonary embolism 2. Severe protein calorie malnutrition PLAN: -Continue supportive care -Family has declined trach and PEG tube placement -Surgery remains on standby for possible trach and PEG tube placement Physician Precipitate Washer note has been reviewed by physician. Signing provider agrees with the documented findings, assessment, and plan of care. Objective - Vital Signs Vital signs: Vital Signs Temp 99.7 F H 02/03/20 04:00 Pulse 80 02/03/20 11:00 Resp 38 H 02/03/20 11:00 BP 137/72 02/03/20 11:00 Pulse Ox 94 L 02/03/20 11:00 Intake & Output 02/02/20 02/03/20 02/03/20 18:59 06:59 18:59 Intake Total 675.397 4259.929 201 Output Total 2815 1850 290 Balance -1978.863 -804.071 -89 Weight 85.6 kg Intake: IV 276 276 115 .9 @ KVO 240 240 100 pressure bags 36 36 15 Intake, IV Titration 87.137 163.929 Amount Clevidipine Butyrate 25 2.066 42.267 mg In Empty Bag 1 bag @ 1 MG/HR 2 mls/hr IV .Q24H [facility] Rx#:[id number] Dexmedetomidine/0.9% NaCl 24.624 (Pmx) 400 mcg In Empty Bag 1 bag @ Titrate IV . Q0M [facility] Rx#:[id number] propofoL 1,000 mg In 85.071 97.038 Empty Bag 1 bag @ Titrate IV .Q0M [facility] Rx#: [id number] Tube Feeding 473 516 86 Other 90 Output: Urine 6438 3171 290 Other: Voiding Method Indwelling Catheter Indwelling Catheter Indwelling Catheter ABP, PAP, CO, CI - Last Documented Arterial Blood Pressure 170/76 - Labs CBC & Chem 7: 02/03/20 04:00 02/03/20 10:45 Labs: Abnormal Lab Results - Last 24 Hours (Table) 02/02/20 02/02/20 02/02/20 Range/Units 13:13 18:00 23:41 RBC (3.80-5.40) m/uL Hgb (11.4-16.0) gm/dL Hct (34.0-46.0) % RDW (11.5-15.5) % Lymphocytes # (1.0-4.8) k/uL ABG pH 7.46 H (7.35-7.45) ABG pO2 70 L (83-108) mmHg ABG HCO3 32 H (21-25) mmol/L ABG Total CO2 33 H (19-24) mmol/L ABG O2 Saturation (94-97) % Potassium (3.5-5.1) mmol/L Carbon Dioxide (22-30) mmol/L BUN (7-17) mg/dL Creatinine (0.52-1.04) mg/dL Glucose (74-99) mg/dL POC Glucose (mg/dL) 138 H 136 H (75-99) mg/dL Calcium (8.4-10.2) mg/dL ALT (4-34) U/L Total Protein (6.3-8.2) g/dL Albumin (3.5-5.0) g/dL 02/03/20 02/03/20 02/03/20 Range/Units 04:00 04:00 05:05 RBC 2.36 L (3.80-5.40) m/uL Hgb 7.5 L (11.4-16.0) gm/dL Hct 22.6 L (34.0-46.0) % RDW 17.1 H (11.5-15.5) % Lymphocytes # 0.6 L (1.0-4.8) k/uL ABG pH 7.52 H (7.35-7.45) ABG pO2 81 L (83-108) mmHg ABG HCO3 33 H (21-25) mmol/L ABG Total CO2 34 H (19-24) mmol/L ABG O2 Saturation 98.9 H (94-97) % Potassium 3.2 L (3.5-5.1) mmol/L Carbon Dioxide 35 H (22-30) mmol/L BUN 29 H (7-17) mg/dL Creatinine 0.49 L (0.52-1.04) mg/dL Glucose 109 H (74-99) mg/dL POC Glucose (mg/dL) (75-99) mg/dL Calcium 8.2 L (8.4-10.2) mg/dL ALT 35 H (4-34) U/L Total Protein 4.3 L (6.3-8.2) g/dL Albumin 1.9 L (3.5-5.0) g/dL 02/03/20 02/03/20 Range/Units 05:46 11:55 RBC (3.80-5.40) m/uL Hgb (11.4-16.0) gm/dL Hct (34.0-46.0) % RDW (11.5-15.5) % Lymphocytes # (1.0-4.8) k/uL ABG pH (7.35-7.45) ABG pO2 (83-108) mmHg ABG HCO3 (21-25) mmol/L ABG Total CO2 (19-24) mmol/L ABG O2 Saturation (94-97) % Potassium (3.5-5.1) mmol/L Carbon Dioxide (22-30) mmol/L BUN (7-17) mg/dL Creatinine (0.52-1.04) mg/dL Glucose (74-99) mg/dL POC Glucose (mg/dL) 107 H 123 H (75-99) mg/dL Calcium (8.4-10.2) mg/dL ALT (4-34) U/L Total Protein (6.3-8.2) g/dL Albumin (3.5-5.0) g/dL
[2020-02-03 16:38] LABS: LD Isoenzymes 1 30 % (19-38); LD Isoenzymes 2 37 % (30-43); LD Isoenzymes 3 14 % (16-26); LD Isoenzymes 4 9 % (3-12); LD Isoenzymes 5 10 % (3-14); Lactacte Dehydrogenase(LD) ISO 204 U/L (120-250)
[2020-02-03] MEDS ORDERED: Potassium Replacement Protocol 1 EACH MISC MISCELLANE PRN (19:48)
[2020-02-03] MEDS ORDERED: POTASSIUM BICARBONATE/CIT AC 20 MEQ TABLET.EFF NG-TUBE SCH (20:00)
[2020-02-03] MEDS: MELATONIN 5 MG TABLET PO SCH (21:17)
[2020-02-03] MEDS: INSULIN DETEMIR (LEVEMIR) 100 UNIT/ML SYR SQ SCH (21:19)
[2020-02-03] MEDS: DEXMEDETOMIDINE/0.9% NACL(PMX) 400 MCG in EMPTY BAG 1 BAG IV SCH (21:52)
[2020-02-04 00:11] LABS: Glucose,Whole Blood 141 mg/dL (75-99)
[2020-02-04] MEDS: INSULIN ASPART (NovoLOG) 100 UNIT/ML VIAL SQ SCH ×4 (00:30→17:35)
[2020-02-04] MEDS: POTASSIUM BICARBONATE/CIT AC 20 MEQ TABLET.EFF NG-TUBE SCH ×2 (01:09→02:24)
[2020-02-04 04:42] LABS: Anisocytosis Slight; Basophils % (A) 0 %; Eosinophils # (A) 0.2 k/uL (0-0.7); Eosinophils % (A) 6 %; HCT 23.4 % (34.0-46.0); HGB 7.7 gm/dL (11.4-16.0); Hypochromasia Moderate; Lymphocytes # (A) 0.7 k/uL (1.0-4.8); Lymphocytes % (A) 19 %; MCHC 32.7 g/dL (31.0-37.0); MCV 94.9 fL (80.0-100.0); Macrocytosis Slight; Mean Platelet Volume 8.3; Monocytes # (A) 0.3 k/uL (0-1.0); Monocytes % (A) 7 %; Neutrophils # (A) 2.4 k/uL (1.3-7.7); Neutrophils % (A) 66 %; Platelet Count 213 k/uL (150-450); Poikilocytosis Slight; RBC 2.47 m/uL (3.80-5.40); WBC 3.7 k/uL (3.8-10.6)
[2020-02-04 05:10] LABS: ALT 32 U/L (4-34); AST 26 U/L (14-36); African American GFR (CKD) >90 (>60 ml/min/1.73 sqM); Alkaline Phosphatase 82 U/L (38-126); Anion Gap 0 mmol/L; Blood Urea Nitrogen 29 mg/dL (7-17); Calcium 8.2 mg/dL (8.4-10.2); Carbon Dioxide 37 mmol/L (22-30); Chloride 101 mmol/L (98-107); Glucose 89 mg/dL (74-99); Non-African American GFR(CKD) >90 (>60 ml/min/1.73 sqM); Potassium 3.9 mmol/L (3.5-5.1); Sodium 138 mmol/L (137-145); Total Bilirubin 0.5 mg/dL (0.2-1.3); Total Protein 4.5 g/dL (6.3-8.2)
[2020-02-04 05:22] LABS: ABG Base Excess 15.1 mmol/L; ABG HCO3 37 mmol/L (21-25); ABG Oxygen Saturation 96.2 % (94-97); ABG PCO2 38 mmHg (35-45); ABG PO2 65 mmHg (83-108); ABG TCO2 38 mmol/L (19-24); Allen Test Performed? Yes
[2020-02-04] MEDS ORDERED: POTASSIUM BICARBONATE/CIT AC 20 MEQ TABLET.EFF NG-TUBE SCH (06:00)
[2020-02-04 06:07] LABS: Glucose,Whole Blood 91 mg/dL (75-99)
[2020-02-04] MEDS: ENOXAPARIN 100 MG/ML SYRINGE SQ SCH ×2 (06:52→21:35)
[2020-02-04 07:09] LABS: Partial Thromboplastin Time 26.3 sec (22.0-30.0); Prothrombin Time 10.2 sec (9.0-12.0)
--- NOTE | 2020-02-04 08:02 | XR ---
EXAMINATION TYPE: XR chest 1V DATE OF EXAM: 02/04/2020 COMPARISON: Prior chest x-ray 02/03/2020 HISTORY: Intubated TECHNIQUE: Single frontal view of the chest is obtained. FINDINGS: Endotracheal tube, NG tube are stable and overlying appropriate positions, right-sided PIC C line in appropriate position. Bilateral airspace disease persists. There is no evident pneumothorax . Difficult to exclude effusion. Heart may be enlarged although there is a spinal curvature, rotation . IMPRESSION: Correlate for pneumonia, edema.
--- NOTE | 2020-02-04 08:04 | P.PN ---
Subjective Progress Note Date: 02/04/20 A 79-year-old female patient who was admitted on 01/09/2020 with COVID 19 related pneumonia and acute pulmonary embolism. I was involved in the care of her back then. I'm seeing her today in follow-up. The patient's course was noted . She had developed hypoxic respiratory failure requiring intubation mechanical ventilation was done on 01/16/2020. She has been on a mechanical ventilator since. She has not shown significant improvement. She received remdesivir and convalescent plasma. The wanted everything done including a tracheostomy and PEG tube insertion. The patient was scheduled to undergo the procedure yesterday. This was not done as the changed his mind. The patient may possibly go with comfort care measures. For now, the patient remains intubated on a mechanical ventilator. She is an assist-control mode rate of 25 and a tidal volume of 350 and FiO2 of 45% and PEEP of 10. The patient has had numerous awakening trials which she failed and the patient will weaning parameters. She is currently is sedated with propofol running at 35 g per KG per minute. The patient on enteral feeding for nutritional support with vital high protein. This is running at 40 mL an hour. She has developed a UTI and she is being treated with antibiotics. Urine cultures have shown E. coli Enterococcus faecalis. I believe this patient's family is opting towards comfort care measures with the next 24-48 hours and for that reason the PEG tube insertion a tracheostomy tube insertion has been canceled for now. The blood gases from today showed a pH of 7.44 with a pCO2 of 45 and pO2 of 78. Chest x- ray from today showing ET tube is in a good location. The patient has a PICC line in the right upper extremity. NG tube is in a good patient. There are diffuse bilateral pulmonary infiltrate with aspirin. Right more than left. today's evaluation of 02/03/2020, the patient is currently on Precedex for sedation. The drip is running at 0.7 g per KG. She is well sedated for now and she is calm and comfortable. He is on mechanical ventilator on assist control mode at the rate of 25 with a tidal volume of 650 and FiO2 of 45% and PEEP of 6. The pH is at 7.52 with a pCO2 of 41 and pO2 of 81. Chest x-ray from this morning shows adequate positioning of the atrial. NG tube is in a good location. There is still bilateral pulmonary infiltrates and possibly some effusion the lung bases. The patient remains off Decadron. The patient was given a sedation holiday yesterday. She has been weaning parameters. She underwent WEANING trials with a pressure support of 7 and a PEEP of 5 and the subsequent blood gases were adequate. Nevertheless, she was quite weak and I was has been and extubating this patient.she has taken Lovenox therapeutic doses of 90 mg subcu every 12 hours. She was started on Lasix yesterday and the fluid balance is -2.7 L over the past 24 hours. Blood work from today shows a potassium level of 3.2 to be replaced. Otherwise normal renal function. Slightly alkalotic with a serum bicarbonate 35. on today's zejabngibn50/09/2020, the patient is off sedation. I had a lengthy conversation with the patient and I also discussed the case with and cardiothoracic surgeon at [facility]. The plan is to proceed with a tracheostomy tube ineffective insertion today. The patient me was on a mechanical ventilator. She is currently on a assist-control rate of 25 with a tidal volume of 350 and FiO2 of 45% with a PEEP of 5. The blood gases from today shows adequate oxygenation.He is at 7.59 with a pCO2 of 38 and pO2 of 65. The chest x-ray from today is unchanged compared to yesterday. There is diffuse breath and pulmonary infiltrates which remain unchanged. ET tube is in a good location. The NG tube also is in a good location. Her tube feeds are currently on hold awaiting a tracheostomy and vancomycin insertion today. Hemodynamically she is stable. She is on no pressors. She was given Lasix over the past 24 or 48 hours and the patient is a negative fluid balance of 2.7 L and 2.1 L over the past 48 hours.tthe patient is following some simple commands. She is extremely weak. She is able to wiggle her toes on command. He is also limited in her eyes. She is currently off sedation. Objective - Vital Signs Vital signs: Vital Signs Temp 98.6 F 02/04/20 04:00 Pulse 68 02/04/20 07:00 Resp 28 H 02/04/20 07:00 BP 137/72 02/03/20 12:00 Pulse Ox 96 02/04/20 07:00 Intake & Output 02/03/20 02/04/20 02/04/20 18:59 06:59 18:59 Intake Total 405 761.073 23 Output Total 1090 2250 75 Balance -685 -1488.927 -52 Weight 85.2 kg Intake: IV 276 276 23 .9 @ KVO 240 240 20 pressure bags 36 36 3 Intake, IV Titration 52.073 Amount Dexmedetomidine/0.9% NaCl 52.073 (Pmx) 400 mcg In Empty Bag 1 bag @ Titrate IV . Q0M [facility] Rx#:[id number] Tube Feeding 129 343 Other 90 Output: Urine 1090 2250 75 Other: Voiding Method Indwelling Catheter Indwelling Catheter # Bowel Movements 1 ABP, PAP, CO, CI - Last Documented Arterial Blood Pressure 100/58 - Exam GENERAL EXAM: Alert, very pleasant 79-year-old female patient which is currently intubated on a mechanical ventilator. Orogastric and orotracheal tube are both in place. HEAD: Normocephalic. EYES: Normal reaction of pupils, equal size. NOSE: Clear with pink turbinates. THROAT: No erythema or exudates. NECK: No masses, no JVD. A subclavian catheter was established on the right side. on the right side.CHEST: No chest wall deformity. LUNGS: Equal air entry with scattered rhonchi., The patient is crackles lung bases bilaterally. CVS: S1 and S2 normal with no audible murmur, irregular rhythm. ABDOMEN: No hepatosplenomegaly, normal bowel sounds, no guarding or rigidity. SPINE: No scoliosis or deformity SKIN: No rashes CENTRAL NERVOUS SYSTEM: the patient is currently sedated, comfortable centimeters the mechanical ventilator. EXTREMITIES: There is no peripheral edema. No clubbing, no cyanosis. Peripheral pulses are intact. - Labs CBC & Chem 7: 02/04/20 04:00 02/04/20 04:00 Labs: Abnormal Lab Results - Last 24 Hours (Table) 02/01/20 02/03/20 02/03/20 Range/Units 04:50 11:55 23:57 WBC (3.8-10.6) k/uL RBC (3.80-5.40) m/uL Hgb (11.4-16.0) gm/dL Hct (34.0-46.0) % RDW (11.5-15.5) % Lymphocytes # (1.0-4.8) k/uL ABG pH (7.35-7.45) ABG pO2 (83-108) mmHg ABG HCO3 (21-25) mmol/L ABG Total CO2 (19-24) mmol/L Carbon Dioxide (22-30) mmol/L BUN (7-17) mg/dL POC Glucose (mg/dL) 123 H 141 H (75-99) mg/dL Calcium (8.4-10.2) mg/dL LD 3 14 L (16-26) % Total Protein (6.3-8.2) g/dL Albumin (3.5-5.0) g/dL 02/04/20 02/04/20 02/04/20 Range/Units 04:00 04:00 04:50 WBC 3.7 L (3.8-10.6) k/uL RBC 2.47 L (3.80-5.40) m/uL Hgb 7.7 L (11.4-16.0) gm/dL Hct 23.4 L (34.0-46.0) % RDW 17.0 H (11.5-15.5) % Lymphocytes # 0.7 L (1.0-4.8) k/uL ABG pH 7.59 H* (7.35-7.45) ABG pO2 65 L (83-108) mmHg ABG HCO3 37 H (21-25) mmol/L ABG Total CO2 38 H (19-24) mmol/L Carbon Dioxide 37 H (22-30) mmol/L BUN 29 H (7-17) mg/dL POC Glucose (mg/dL) (75-99) mg/dL Calcium 8.2 L (8.4-10.2) mg/dL LD 3 (16-26) % Total Protein 4.5 L (6.3-8.2) g/dL Albumin 2.0 L (3.5-5.0) g/dL Assessment and Plan Plan: 1 acute hypoxic respiratory failure predominantly secondary to Covid 19 related pneumonia and there is also some contribution to her hypoxemia because of the pulmonary embolism. The predominant factor contributing to respiratory failure is Covid 19 related pneumonia as the patient developed diffuse breath and pulmonary infiltrates with progressive hypoxemia despite ongoing treatment. The patient was intubated on 01/16/2020 and the patient currently remains intubated sedated on a mechanical ventilator. Blood gases was noted. Ventilator settings were noted. Chest x-ray findings were also noted and the patient is diffuse but the pulmonary infiltrates consistent with the viral pneumonia. The patient completed the course of Remdesivir and the patient also received convalescent plasma 1. patient is did well yesterday with a spontaneous breathing trial. Nevertheless she was quite weak and lower has that and extubating the patient because of concerns of respiratory failure because of a generalized weakness. I prefer to proceed with a PEG and trach and proceed with a slow wean on this patient. I discussed the case with the cardiothoracic team at [facility], a friend of the patient, and with the and we are going to proceed with a PEG and trach. I think is the best treatment option for this patient in terms of achieving successful recovery from her condition. She is currently off sedation. She is nothing by mouth awaiting a PEG in place. The morning dose of Lovenox will be held. 2 acute right-sided pulmonary embolism, probably related to Covid 19 related hypercoagulability.The patient is currently on Lovenox therapeutic dose, 60 mg subcu every 12 hours. 3 Covid 19 related pneumonia 4 recurrent atrial fibrillation with rapid response. The patient is on Metoprolol and amiodarone. Patient is already and anticoagulation. 5 hypotension, recovered 6 remote history of DVT and the patient was taken Xarelto on outpatient basis 7 hypertension 8 acute kidney injury, recovered and the renal function improved and normalized 9 non-anion gap metabolic acidosis, recovered 10 Chronic anemia, multifactorial. plan Trach and Peg today Lasix 40 mg IVevery 12 hours the patient is in a negative fluid balance. Completed 10 days course of Decadron 6 mg , completed the course of Remdesivir per protocol in addition to the rest of the supplements including vitamin C, vitamin D, melatonin, Pepcid and zinc The patient received a unit of convalescent plasma. Lovenox therapeutic dose of 90 mg every 12 hours. Cardiac rhythm is atrial fibrillation /sinus and the patient is on Metoprolol and amiodarone. the patient was given a sedation holiday. She underwent a spontaneous breathing trial. She was quite weak for extubation. I am going to consider a tracheostomy tube insertion and I'm going to talk to the again about this issue. I'm going to consult general surgery regarding the possibility of a pack and trach.patient will be having her procedure done today. The patient be kept in the intensive care unit for now.This is a critically care evaluation that was done and more than 30 minutes. Time with Patient: Greater than 30
[2020-02-04] MEDS: ALBUTEROL HFA INHALER INHALATION SCH ×4 (08:42→21:28)
[2020-02-04] MEDS: ASCORBIC ACID 500 MG TAB PO SCH (08:56)
[2020-02-04] MEDS: FUROSEMIDE 10 MG/ML 4 ML VIAL IV SCH ×2 (08:56→21:33)
[2020-02-04] MEDS: FAMOTIDINE 20 MG TAB PO SCH (08:56)
[2020-02-04] MEDS: ZINC SULFATE 220 MG CAP PO SCH (08:56)
[2020-02-04] MEDS: CHOLECALCIFEROL 1,000 UNIT TAB PO SCH (08:56)
[2020-02-04] MEDS: CHLORHEXIDINE GLUCONATE 15 ML CUP MUCOUS MEM SCH ×2 (08:57→21:35)
[2020-02-04] MEDS: METOPROLOL TARTRATE 50 MG TAB PO SCH ×2 (08:57→21:33)
[2020-02-04] MEDS: AMIODARONE 200 MG TAB PO SCH (08:57)
--- NOTE | 2020-02-04 10:53 | P.PN ---
Subjective Progress Note Date: 02/04/20 No new complaints at this time. Objective - Vital Signs Vital signs: Vital Signs Temp 97.9 F 02/04/20 08:00 Pulse 70 02/04/20 09:00 Resp 25 H 02/04/20 09:00 BP 137/72 02/03/20 12:00 Pulse Ox 98 02/04/20 09:00 Intake & Output 02/03/20 02/04/20 02/04/20 18:59 06:59 18:59 Intake Total 405 761.073 129 Output Total 1090 2250 175 Balance -685 -1488.927 -46 Weight 85.2 kg Intake: IV 276 276 69 .9 @ KVO 240 240 60 pressure bags 36 36 9 Intake, IV Titration 52.073 Amount Dexmedetomidine/0.9% NaCl 52.073 (Pmx) 400 mcg In Empty Bag 1 bag @ Titrate IV . Q0M [facility] Rx#:[id number] Oral 60 Tube Feeding 129 343 Other 90 Output: Urine 1090 2250 175 Other: Voiding Method Indwelling Catheter Indwelling Catheter Indwelling Catheter # Bowel Movements 1 1 ABP, PAP, CO, CI - Last Documented Arterial Blood Pressure 117/54 - Exam Gen: Intubated, sedated HEENT: normocephalic, atraumatic, good hearing acuity, moist mucous membranes Resp: Vented, tidal volume 350, FiO2 45%, PEEP 5, respiratory rate 25 CVS: good distal perfusion x 4, RRR, no murmurs, clicks, gallops GI: soft, NTTP, ND : no SPT, no CVAT, stanton catheter is present MSK: no pitting edema, no clubbing Neuro: non-focal, no sensory deficits, appropriate tone - Labs CBC & Chem 7: 02/04/20 04:00 02/04/20 04:00 Labs: Abnormal Lab Results - Last 24 Hours (Table) 02/01/20 02/03/20 02/03/20 Range/Units 04:50 11:55 23:57 WBC (3.8-10.6) k/uL RBC (3.80-5.40) m/uL Hgb (11.4-16.0) gm/dL Hct (34.0-46.0) % RDW (11.5-15.5) % Lymphocytes # (1.0-4.8) k/uL ABG pH (7.35-7.45) ABG pO2 (83-108) mmHg ABG HCO3 (21-25) mmol/L ABG Total CO2 (19-24) mmol/L Carbon Dioxide (22-30) mmol/L BUN (7-17) mg/dL POC Glucose (mg/dL) 123 H 141 H (75-99) mg/dL Calcium (8.4-10.2) mg/dL LD 3 14 L (16-26) % Total Protein (6.3-8.2) g/dL Albumin (3.5-5.0) g/dL 02/04/20 02/04/20 02/04/20 Range/Units 04:00 04:00 04:50 WBC 3.7 L (3.8-10.6) k/uL RBC 2.47 L (3.80-5.40) m/uL Hgb 7.7 L (11.4-16.0) gm/dL Hct 23.4 L (34.0-46.0) % RDW 17.0 H (11.5-15.5) % Lymphocytes # 0.7 L (1.0-4.8) k/uL ABG pH 7.59 H* (7.35-7.45) ABG pO2 65 L (83-108) mmHg ABG HCO3 37 H (21-25) mmol/L ABG Total CO2 38 H (19-24) mmol/L Carbon Dioxide 37 H (22-30) mmol/L BUN 29 H (7-17) mg/dL POC Glucose (mg/dL) (75-99) mg/dL Calcium 8.2 L (8.4-10.2) mg/dL LD 3 (16-26) % Total Protein 4.5 L (6.3-8.2) g/dL Albumin 2.0 L (3.5-5.0) g/dL Assessment and Plan Assessment: 1. Acute Hypoxemic Respiratory Failure secondary to ARDS 2. ARDS secondary to COVID-19 3. Bicytopenia: Anemia/Thrombocytopenia 4. Anasarca 5. Pulmonary Embolism without cor pulmonale, History of DVT 6. Paroxysmal Atrial Fibrillation with RVR 7. Enterococcus and E. coli Complicated UTI 79 year old woman with history of HTN, DVT presented with dyspnea and found to have acute hypoxemic respiratory failure secondary to COVID-19 positive status as well as pulmonary embolism discovered on admission. She was discovered to be in A Fib with RVR while on the selective unit, and was ultimately controlled with metoprolol and amiodarone. She developed ARDS during her hospitalization, and ultimately required mechanical ventilation. She was intubated on 01/15, and since that time has not been able to be weaned. Covid 19 pneumonia with acute hypoxic respiratory failure, ARDS - Failing weaning trials. - Completed Remdesivir on 01/15 - s/p Dexamethasone day #17 days completed - Status post convalescent plasma 01/14 - Pulmonary discussed case with family, family considering pursuing PEG and trach placement, according to nursing staff family is not leaning towards comfort care.. - Continue zinc, vitamin C, vitamin D, Pepcid, and melatonin Anemia, undetermined cause, thrombocytopenia, likely reactive - 1 unit pRBC 01/25/2020 - Stable now - suspect due to slow leak from TLC site. - Lovenox. dose adjusted by pulm for bleeding - Pulm wants to hold off transfusion at this point DIffuse Anasarca - Lasix X 1 given 01/22, repeated 01/25 Pulmonary embolus without right ventricular strain, history of prior DVT - Lovenox P. A fib with RVR - lovenox, amio - now in NSR Entercoccus and E coli UTI -Status post treatment with Levaquin, stop date 01/31 Thrombocytopenia KALYAN due to ATN with resultant metabolic acidosis and hyperphosphatemia, resolved Septic shock, resolved Hypokalemia, resolved DVT prophylaxis: Lovenox for PE Discussed with: Nursing, ICU team Anticipated discharge: undetermined Anticipated discharge place: Undetermined
[2020-02-04] MEDS: CLEVIDIPINE BUTYRATE 25 MG in EMPTY BAG 1 BAG IV SCH (11:08)
[2020-02-04 11:45] LABS: Glucose,Whole Blood 95 mg/dL (75-99)
[2020-02-04] MEDS ORDERED: LIDOCAINE 1% INJ 10MG/ML (20 ML MDV) SQ ONE (13:33)
[2020-02-04] MEDS ORDERED: MIDAZOLAM 2 MG/2 ML VIAL ONE (14:13)
[2020-02-04] MEDS ORDERED: IV FLUID CONTINUATION 200 ML IV ONE (14:13)
[2020-02-04] MEDS ORDERED: fentaNYL (PF) 50 MCG/ML 2 ML AMP ONE (14:13)
[2020-02-04] MEDS ORDERED: ROCURONIUM 10 MG/ML (10 ML VIAL) IV ONE (14:13)
[2020-02-04] MEDS ORDERED: LACTATED RINGERS 1,000 ML IV ONE (15:04)
--- NOTE | 2020-02-04 15:14 | P.OP ---
Date of Procedure: 02/04/20 Preoperative Diagnosis: Respiratory failure Malnutrition Postoperative Diagnosis: Respiratory failure Malnutrition Procedure(s) Performed: Tracheostomy PEG tube Anesthesia: JAKE Surgeon: Rory Gomez Estimated Blood Loss (ml): 10 Pathology: none sent Condition: stable Disposition: PACU Description of Procedure: The patient's placed on the operative table in the supine position. She received generously. Her neck was prepped and draped usual sterile fashion. A standard [place] incision was made. Using left cautery and subcutaneous tissues and platysma was divided. The strap muscles and exposed. The strap muscles divided midline. The trachea was exposed. The NG tube in place and right mainstem bronchus. The tracheotomy was then performed between the second third cartilage rings. Intraoperative brought back and a #8 [place] tube was placed into the trachea. The patient consented to the ventilator and end-tidal CO2 was confirmed. The incision was then closed with 3-0 nylon suture. Tracheal tie was then placed. Next the gastroscope was oropharynx passed in the esophagus and stomach. Scope was placed through the pylorus first second portion duodenum appeared normal. Scope summer back the antrum and there is no significant inflation. A suitable light reflux was seen in the anterior abdominal wall. The skin was incised and then the needles placed and stomach under direct visualization. The needle was snared. The wire was then brought to the oropharynx. The PEG tube placed overtop the wire and brought down to the stomach. The PEG tube was secured one- piece bolster. Patient top she will was sent to recovery room stable condition.
[2020-02-04] MEDS: HYDROmorphone 0.5 MG/0.5 ML SYRINGE IVP PRN ×2 (16:56→21:34)
[2020-02-04 17:10] LABS: Glucose,Whole Blood 91 mg/dL (75-99)
[2020-02-04 17:46] LABS: ABG Base Excess 13.1 mmol/L; ABG HCO3 36 mmol/L (21-25); ABG Oxygen Saturation 98.1 % (94-97); ABG PCO2 41 mmHg (35-45); ABG PH 7.55 (7.35-7.45); ABG PO2 78 mmHg (83-108); ABG TCO2 37 mmol/L (19-24)
[2020-02-04 17:47] LABS: Allen Test Performed? no
[2020-02-04] MEDS: NOREPINEPHRINE 4 MG in SODIUM CHLORIDE 0.9% 250 ML IV SCH (18:04)
[2020-02-04] MEDS: DEXMEDETOMIDINE/0.9% NACL(PMX) 400 MCG in EMPTY BAG 1 BAG IV SCH (21:35)
[2020-02-04] MEDS: INSULIN DETEMIR (LEVEMIR) 100 UNIT/ML SYR SQ SCH (21:36)
[2020-02-04] MEDS: MELATONIN 5 MG TABLET PO SCH (21:38)
[2020-02-04] MEDS ORDERED: DEXMEDETOMIDINE/0.9% NACL(PMX) 400 MCG in EMPTY BAG 1 BAG IV SCH (21:45)
[2020-02-04 23:38] LABS: Glucose,Whole Blood 95 mg/dL (75-99)
[2020-02-05] MEDS: INSULIN ASPART (NovoLOG) 100 UNIT/ML VIAL SQ SCH ×4 (00:57→18:39)
[2020-02-05 05:32] LABS: Anisocytosis Slight; Basophils % (A) 0 %; Eosinophils # (A) 0.3 k/uL (0-0.7); Eosinophils % (A) 7 %; HCT 22.4 % (34.0-46.0); HGB 7.3 gm/dL (11.4-16.0); Hypochromasia Moderate; Lymphocytes # (A) 0.6 k/uL (1.0-4.8); Lymphocytes % (A) 15 %; MCHC 32.6 g/dL (31.0-37.0); MCV 95.1 fL (80.0-100.0); Macrocytosis Slight; Mean Platelet Volume 7.9; Monocytes # (A) 0.2 k/uL (0-1.0); Monocytes % (A) 6 %; Neutrophils # (A) 2.7 k/uL (1.3-7.7); Neutrophils % (A) 69 %; Platelet Count 242 k/uL (150-450); Poikilocytosis Slight; RBC 2.36 m/uL (3.80-5.40); RDW 17.2 % (11.5-15.5)
[2020-02-05 05:43] LABS: D-Dimer 1.84 mg/L FEU (<0.60)
[2020-02-05 05:53] LABS: ALT 28 U/L (4-34); AST 25 U/L (14-36); African American GFR (CKD) >90 (>60 ml/min/1.73 sqM); Albumin 2.1 g/dL (3.5-5.0); Alkaline Phosphatase 78 U/L (38-126); Anion Gap 1 mmol/L; Blood Urea Nitrogen 26 mg/dL (7-17); C Reactive Protein 70.1 mg/L (<10.0); Calcium 8.1 mg/dL (8.4-10.2); Carbon Dioxide 36 mmol/L (22-30); Chloride 101 mmol/L (98-107); Glucose 73 mg/dL (74-99); Non-African American GFR(CKD) >90 (>60 ml/min/1.73 sqM); Potassium 3.2 mmol/L (3.5-5.1); Sodium 138 mmol/L (137-145); Total Bilirubin 0.7 mg/dL (0.2-1.3); Total Protein 4.6 g/dL (6.3-8.2)
[2020-02-05 06:03] LABS: ABG Base Excess 13.9 mmol/L; ABG HCO3 36 mmol/L (21-25); ABG Oxygen Saturation 97.4 % (94-97); ABG PCO2 41 mmHg (35-45); ABG PO2 72 mmHg (83-108); ABG TCO2 37 mmol/L (19-24); Allen Test Performed? Yes
[2020-02-05 06:06] LABS: ABG PH 7.56 (7.35-7.45)
[2020-02-05 06:17] LABS: Glucose,Whole Blood 75 mg/dL (75-99)
[2020-02-05] MEDS: HYDROmorphone 0.5 MG/0.5 ML SYRINGE IVP PRN ×3 (06:21→20:18)
[2020-02-05] MEDS ORDERED: Potassium Replacement Protocol 1 EACH MISC MISCELLANE PRN (06:22)
[2020-02-05] MEDS: POTASSIUM BICARBONATE/CIT AC 20 MEQ TABLET.EFF NG-TUBE SCH (06:51)
[2020-02-05] MEDS: ALBUTEROL HFA INHALER INHALATION SCH ×4 (07:51→20:11)
--- NOTE | 2020-02-05 07:54 | XR ---
EXAMINATION TYPE: XR chest 1V DATE OF EXAM: 02/05/2020 COMPARISON: 02/04/2020 INDICATION: Short of breath TECHNIQUE: Single frontal view of the chest is obtained. FINDINGS: The heart size is normal. The pulmonary vasculature is indistinct. Patchy infiltrates are present bilaterally. Endotracheal tube tip is above the ollie. PICC line enters on the right with the tip in the superior vena cava region IMPRESSION: 1. Patchy bilateral lung infiltrates, stable.
--- NOTE | 2020-02-05 08:29 | P.PN ---
Subjective Progress Note Date: 02/05/20 A 79-year-old female patient who was admitted on 01/09/2020 with COVID 19 related pneumonia and acute pulmonary embolism. I was involved in the care of her back then. I'm seeing her today in follow-up. The patient's course was noted . She had developed hypoxic respiratory failure requiring intubation mechanical ventilation was done on 01/16/2020. She has been on a mechanical ventilator since. She has not shown significant improvement. She received remdesivir and convalescent plasma. The wanted everything done including a tracheostomy and PEG tube insertion. The patient was scheduled to undergo the procedure yesterday. This was not done as the changed his mind. The patient may possibly go with comfort care measures. For now, the patient remains intubated on a mechanical ventilator. She is an assist-control mode rate of 25 and a tidal volume of 350 and FiO2 of 45% and PEEP of 10. The patient has had numerous awakening trials which she failed and the patient will weaning parameters. She is currently is sedated with propofol running at 35 g per KG per minute. The patient on enteral feeding for nutritional support with vital high protein. This is running at 40 mL an hour. She has developed a UTI and she is being treated with antibiotics. Urine cultures have shown E. coli Enterococcus faecalis. I believe this patient's family is opting towards comfort care measures with the next 24-48 hours and for that reason the PEG tube insertion a tracheostomy tube insertion has been canceled for now. The blood gases from today showed a pH of 7.44 with a pCO2 of 45 and pO2 of 78. Chest x- ray from today showing ET tube is in a good location. The patient has a PICC line in the right upper extremity. NG tube is in a good patient. There are diffuse bilateral pulmonary infiltrate with aspirin. Right more than left. today's evaluation of 02/03/2020, the patient is currently on Precedex for sedation. The drip is running at 0.7 g per KG. She is well sedated for now and she is calm and comfortable. He is on mechanical ventilator on assist control mode at the rate of 25 with a tidal volume of 650 and FiO2 of 45% and PEEP of 6. The pH is at 7.52 with a pCO2 of 41 and pO2 of 81. Chest x-ray from this morning shows adequate positioning of the atrial. NG tube is in a good location. There is still bilateral pulmonary infiltrates and possibly some effusion the lung bases. The patient remains off Decadron. The patient was given a sedation holiday yesterday. She has been weaning parameters. She underwent WEANING trials with a pressure support of 7 and a PEEP of 5 and the subsequent blood gases were adequate. Nevertheless, she was quite weak and I was has been and extubating this patient.she has taken Lovenox therapeutic doses of 90 mg subcu every 12 hours. She was started on Lasix yesterday and the fluid balance is -2.7 L over the past 24 hours. Blood work from today shows a potassium level of 3.2 to be replaced. Otherwise normal renal function. Slightly alkalotic with a serum bicarbonate 35. on today's recolamgrc79/09/2020, the patient is off sedation. I had a lengthy conversation with the patient and I also discussed the case with and cardiothoracic surgeon at [facility]. The plan is to proceed with a tracheostomy tube ineffective insertion today. The patient me was on a mechanical ventilator. She is currently on a assist-control rate of 25 with a tidal volume of 350 and FiO2 of 45% with a PEEP of 5. The blood gases from today shows adequate oxygenation.He is at 7.59 with a pCO2 of 38 and pO2 of 65. The chest x-ray from today is unchanged compared to yesterday. There is diffuse breath and pulmonary infiltrates which remain unchanged. ET tube is in a good location. The NG tube also is in a good location. Her tube feeds are currently on hold awaiting a tracheostomy and vancomycin insertion today. Hemodynamically she is stable. She is on no pressors. She was given Lasix over the past 24 or 48 hours and the patient is a negative fluid balance of 2.7 L and 2.1 L over the past 48 hours.tthe patient is following some simple commands. She is extremely weak. She is able to wiggle her toes on command. He is also limited in her eyes. She is currently off sedation. 02/05/2020, the patient is post tracheostomy tube insertion. Also on Precedex running at 0.2 mcg/kg/h. She is arousable. She grimaces. She blinks her eyes upon demand. She is trying to move. She is profoundly weak. Unable to raise her head of the bed. She continues to be edematous in all 4 extremities. She is on a mechanical ventilator. She was on assist control of 25 with a tidal vol ume of 350 and a PEEP of 5 with a FiO2 of 45%. No significant external tracheostomy tube. The patient had a blood. That showed a pH of 7.55 with a pCO2 of 40 and pO2 of 71.6. Chest x-ray shows no interval change. The patient had a PEG tube insertion and she will be started on enteral feeding for nutritional support. No other complaints otherwise for now. She is hemodynamically stable. She is having some hypertensive reactions on and off and her blood pressure is sometimes labile which she developed also hypotension. She is currently on a minimal dose of norepinephrine infusion for blood pressure support. Her blood work from today shows a hemoglobin of 7.3. Renal function stable. Electrolytes are all stable. Albumin is at 2.1. Objective - Vital Signs Vital signs: Vital Signs Temp 99.9 F H 02/05/20 04:00 Pulse 76 02/05/20 07:00 Resp 27 H 02/05/20 08:00 BP 111/66 02/05/20 05:00 Pulse Ox 94 L 02/05/20 07:00 Intake & Output 02/04/20 02/05/20 02/05/20 18:59 06:59 18:59 Intake Total 522.283 522.219 136.239 Output Total 1630 1375 65 Balance -1107.717 -852.781 71.239 Weight 85.2 kg 85.2 kg Intake: IV 450 253 46 .9 @ KVO 180 220 40 pressure bags 70 33 6 Intake, IV Titration 12.283 54.219 90.239 Amount Dexmedetomidine/0.9% NaCl 12.283 28.684 (Pmx) 400 mcg In Empty Bag 1 bag @ Titrate IV . Q0M [facility] Rx#:[id number] Norepinephrine 4 mg In 25.535 90.239 Sodium Chloride 0.9% 250 ml @ 0.05 MCG/KG/MIN 16. 231 mls/hr IV .[id number] AN[facility] Rx#:[id number] Oral 60 Tube Feeding 215 Output: Urine 1625 1375 65 Estimated Blood Loss 5 Other: Voiding Method Indwelling Catheter Indwelling Catheter Indwelling Catheter # Bowel Movements 1 ABP, PAP, CO, CI - Last Documented Arterial Blood Pressure 141/70 - Exam GENERAL EXAM: Alert, very pleasant 79-year-old female patient which is currently intubated on a mechanical ventilator. Orogastric and orotracheal tube are both in place. HEAD: Normocephalic. EYES: Normal reaction of pupils, equal size. NOSE: Clear with pink turbinates. THROAT: No erythema or exudates. NECK: No masses, no JVD. A subclavian catheter was established on the right side. on the right side.CHEST: No chest wall deformity. LUNGS: Equal air entry with scattered rhonchi., The patient is crackles lung bases bilaterally. CVS: S1 and S2 normal with no audible murmur, irregular rhythm. ABDOMEN: No hepatosplenomegaly, normal bowel sounds, no guarding or rigidity. SPINE: No scoliosis or deformity SKIN: No rashes CENTRAL NERVOUS SYSTEM: the patient is currently sedated, comfortable centimeters the mechanical ventilator. EXTREMITIES: There is no peripheral edema. No clubbing, no cyanosis. Peripheral pulses are intact. - Labs CBC & Chem 7: 02/05/20 04:50 02/05/20 04:50 Labs: Abnormal Lab Results - Last 24 Hours (Table) 02/04/20 02/05/20 02/05/20 Range/Units 17:44 04:50 04:50 RBC 2.36 L (3.80-5.40) m/uL Hgb 7.3 L (11.4-16.0) gm/dL Hct 22.4 L (34.0-46.0) % RDW 17.2 H (11.5-15.5) % Lymphocytes # 0.6 L (1.0-4.8) k/uL Fibrinogen 630 H (200-500) mg/dL D-Dimer 1.84 H (<0.60) mg/L FEU ABG pH 7.55 H (7.35-7.45) ABG pO2 78 L (83-108) mmHg ABG HCO3 36 H (21-25) mmol/L ABG Total CO2 37 H (19-24) mmol/L ABG O2 Saturation 98.1 H (94-97) % Potassium (3.5-5.1) mmol/L Carbon Dioxide (22-30) mmol/L BUN (7-17) mg/dL Glucose (74-99) mg/dL Calcium (8.4-10.2) mg/dL C-Reactive Protein (<10.0) mg/L Total Protein (6.3-8.2) g/dL Albumin (3.5-5.0) g/dL 02/05/20 02/05/20 Range/Units 04:50 05:55 RBC (3.80-5.40) m/uL Hgb (11.4-16.0) gm/dL Hct (34.0-46.0) % RDW (11.5-15.5) % Lymphocytes # (1.0-4.8) k/uL Fibrinogen (200-500) mg/dL D-Dimer (<0.60) mg/L FEU ABG pH 7.56 H* (7.35-7.45) ABG pO2 72 L (83-108) mmHg ABG HCO3 36 H (21-25) mmol/L ABG Total CO2 37 H (19-24) mmol/L ABG O2 Saturation 97.4 H (94-97) % Potassium 3.2 L (3.5-5.1) mmol/L Carbon Dioxide 36 H (22-30) mmol/L BUN 26 H (7-17) mg/dL Glucose 73 L (74-99) mg/dL Calcium 8.1 L (8.4-10.2) mg/dL C-Reactive Protein 70.1 H (<10.0) mg/L Total Protein 4.6 L (6.3-8.2) g/dL Albumin 2.1 L (3.5-5.0) g/dL Assessment and Plan Plan: 1 acute hypoxic respiratory failure predominantly secondary to Covid 19 related pneumonia and there is also some contribution to her hypoxemia because of the pulmonary embolism. The predominant factor contributing to respiratory failure is Covid 19 related pneumonia as the patient developed diffuse breath and pulmonary infiltrates with progressive hypoxemia despite ongoing treatment. The patient was intubated on 01/16/2020 and the patient currently remains intubated sedated on a mechanical ventilator. Blood gases was noted. the patient has a tracheostomy tube in place for now. The patient is being adequately ventilated. On today's evaluation I suggested to switch him to a VC plus mode. The patient is hemodynamically stable. Tracheostomy tube in place. The patient is postop day #1. She is currently on minimal amount of Precedex for sedation. 2 acute right-sided pulmonary embolism, probably related to Covid 19 related hypercoagulability.The patient is currently on Lovenox therapeutic dose, 60 mg subcu every 12 hours. 3 Covid 19 related pneumonia 4 recurrent atrial fibrillation with rapid response. The patient is on Metoprolol and amiodarone. Patient is already and anticoagulation. 5 hypotension, recovered, continues to have labile blood pressure, minimal amount of norepinephrine infusion for now 6 remote history of DVT and the patient was taken Xarelto on outpatient basis 7 hypertension 8 acute kidney injury, recovered and the renal function improved and normalized 9 non-anion gap metabolic acidosis, recovered 10 Chronic anemia, multifactorial. plan Trach and Peg has been inserted and the patientwe'll start enteral feeding for nutritional support. I switch this patient a VC plus mode at the rate of 14, tidal volume of 400 and FiO2 of 45% with a PEEP of 5 Lasix 40 mg IVevery 12 hours the patient is in a negative fluid balance. Completed 10 days course of Decadron 6 mg , completed the course of Remdesivir per protocol in addition to the rest of the supplements including vitamin C, vitamin D, melatonin, Pepcid and zinc The patient received a unit of convalescent plasma. Lovenox therapeutic dose of 90 mg every 12 hours. Cardiac rhythm is atrial fibrillation /sinus and the patient is on Metoprolol and amiodarone. hold sedation was gradually wean off sedation Initiate enteral feeding through the PEG tube today critically care evaluation was done and more than 30 minutes.
[2020-02-05] MEDS: ASCORBIC ACID 500 MG TAB PO SCH (09:18)
[2020-02-05] MEDS: CHOLECALCIFEROL 1,000 UNIT TAB PO SCH (09:19)
[2020-02-05] MEDS: METOPROLOL TARTRATE 50 MG TAB PO SCH ×2 (09:19→21:15)
[2020-02-05] MEDS: FAMOTIDINE 20 MG TAB PO SCH (09:19)
[2020-02-05] MEDS: CHLORHEXIDINE GLUCONATE 15 ML CUP MUCOUS MEM SCH ×2 (09:19→21:14)
[2020-02-05] MEDS: AMIODARONE 200 MG TAB PO SCH (09:19)
[2020-02-05] MEDS: ENOXAPARIN 100 MG/ML SYRINGE SQ SCH ×2 (09:19→21:17)
[2020-02-05] MEDS: FUROSEMIDE 10 MG/ML 4 ML VIAL IV SCH ×2 (09:19→21:15)
[2020-02-05] MEDS: ZINC SULFATE 220 MG CAP PO SCH (09:19)
[2020-02-05 09:40] LABS: Ferritin 402.4 ng/mL (10.0-291.0)
--- NOTE | 2020-02-05 11:10 | P.PN ---
Subjective Progress Note Date: 02/05/20 s/p trach/peg; patient follows commands, but appear frustrated at times. BPs are labile per nursing. Objective - Vital Signs Vital signs: Vital Signs Temp 98.2 F 02/05/20 08:00 Pulse 75 02/05/20 10:00 Resp 21 02/05/20 10:00 BP 111/66 02/05/20 10:00 Pulse Ox 94 L 02/05/20 10:00 Intake & Output 02/04/20 02/05/20 02/05/20 18:59 06:59 18:59 Intake Total 522.283 522.219 182.239 Output Total 1630 1375 155 Balance -1107.717 -852.781 27.239 Weight 85.2 kg 85.2 kg Intake: IV 450 253 92 .9 @ KVO 180 220 80 pressure bags 70 33 12 Intake, IV Titration 12.283 54.219 90.239 Amount Dexmedetomidine/0.9% NaCl 12.283 28.684 (Pmx) 400 mcg In Empty Bag 1 bag @ Titrate IV . Q0M [facility] Rx#:[id number] Norepinephrine 4 mg In 25.535 90.239 Sodium Chloride 0.9% 250 ml @ 0.05 MCG/KG/MIN 16. 231 mls/hr IV .[id number] [facility] Rx#:[id number] Oral 60 Tube Feeding 215 Output: Urine 1625 1375 155 Estimated Blood Loss 5 Other: Voiding Method Indwelling Catheter Indwelling Catheter Indwelling Catheter # Bowel Movements 1 ABP, PAP, CO, CI - Last Documented Arterial Blood Pressure 121/50 - Exam Gen: awake, alert HEENT: normocephalic, atraumatic, good hearing acuity, moist mucous membranes Resp: Vented via trach, tidal volume 350, FiO2 45%, PEEP 5, respiratory rate 25 CVS: good distal perfusion x 4, RRR, no murmurs, clicks, gallops GI: soft, NTTP, ND, +PEG : no SPT, no CVAT, stanton catheter is present MSK: no pitting edema, no clubbing Neuro: non-focal, no sensory deficits, appropriate tone - Labs CBC & Chem 7: 02/05/20 04:50 02/05/20 04:50 Labs: Abnormal Lab Results - Last 24 Hours (Table) 12/11/1502/05/20 02/05/20 Range/Units 17:44 04:50 04:50 RBC 2.36 L (3.80-5.40) m/uL Hgb 7.3 L (11.4-16.0) gm/dL Hct 22.4 L (34.0-46.0) % RDW 17.2 H (11.5-15.5) % Lymphocytes # 0.6 L (1.0-4.8) k/uL Fibrinogen 630 H (200-500) mg/dL D-Dimer 1.84 H (<0.60) mg/L FEU ABG pH 7.55 H (7.35-7.45) ABG pO2 78 L (83-108) mmHg ABG HCO3 36 H (21-25) mmol/L ABG Total CO2 37 H (19-24) mmol/L ABG O2 Saturation 98.1 H (94-97) % Potassium (3.5-5.1) mmol/L Carbon Dioxide (22-30) mmol/L BUN (7-17) mg/dL Glucose (74-99) mg/dL Calcium (8.4-10.2) mg/dL Ferritin (10.0-291.0) ng/mL C-Reactive Protein (<10.0) mg/L Total Protein (6.3-8.2) g/dL Albumin (3.5-5.0) g/dL 02/05/20 02/05/20 Range/Units 04:50 05:55 RBC (3.80-5.40) m/uL Hgb (11.4-16.0) gm/dL Hct (34.0-46.0) % RDW (11.5-15.5) % Lymphocytes # (1.0-4.8) k/uL Fibrinogen (200-500) mg/dL D-Dimer (<0.60) mg/L FEU ABG pH 7.56 H* (7.35-7.45) ABG pO2 72 L (83-108) mmHg ABG HCO3 36 H (21-25) mmol/L ABG Total CO2 37 H (19-24) mmol/L ABG O2 Saturation 97.4 H (94-97) % Potassium 3.2 L (3.5-5.1) mmol/L Carbon Dioxide 36 H (22-30) mmol/L BUN 26 H (7-17) mg/dL Glucose 73 L (74-99) mg/dL Calcium 8.1 L (8.4-10.2) mg/dL Ferritin 402.4 H (10.0-291.0) ng/mL C-Reactive Protein 70.1 H (<10.0) mg/L Total Protein 4.6 L (6.3-8.2) g/dL Albumin 2.1 L (3.5-5.0) g/dL Assessment and Plan Assessment: 1. Acute Hypoxemic Respiratory Failure secondary to ARDS 2. ARDS secondary to COVID-19 3. Bicytopenia: Anemia/Thrombocytopenia 4. Anasarca 5. Pulmonary Embolism without cor pulmonale, History of DVT 6. Paroxysmal Atrial Fibrillation with RVR 7. Enterococcus and E. coli Complicated UTI 79 year old woman with history of HTN, DVT presented with dyspnea and found to have acute hypoxemic respiratory failure secondary to COVID-19 positive status as well as pulmonary embolism discovered on admission. She was discovered to be in A Fib with RVR while on the selective unit, and was ultimately controlled with metoprolol and amiodarone. She developed ARDS during her hospitalization, and ultimately required mechanical ventilation. She was intubated on 01/15, and since that time has not been able to be weaned. Covid 19 pneumonia with acute hypoxic respiratory failure, ARDS - Failing weaning trials, now with trach/peg - Completed Remdesivir on 01/15 - s/p Dexamethasone day #17 days completed - Status post convalescent plasma 01/14 - Continue zinc, vitamin C, vitamin D, Pepcid, and melatonin Labile Blood Pressure - obtain cortisol random level, - then AM cortisol tomorrow - consideration of stress steroids Anemia, undetermined cause, thrombocytopenia, likely reactive - 1 unit pRBC 01/25/2020 - Stable now - suspect due to slow leak from TLC site. - Lovenox. dose adjusted by pulm for bleeding - Pulm wants to hold off transfusion at this point DIffuse Anasarca - Lasix X 1 given 01/22, repeated 01/25 Pulmonary embolus without right ventricular strain, history of prior DVT - Lovenox P. A fib with RVR - lovenox, amio - now in NSR Entercoccus and E coli UTI -Status post treatment with Levaquin, stop date 01/31 Thrombocytopenia KALYAN due to ATN with resultant metabolic acidosis and hyperphosphatemia, resolved Septic shock, resolved Hypokalemia, resolved DVT prophylaxis: Lovenox for PE Discussed with: Nursing, ICU team Anticipated discharge: undetermined Anticipated discharge place: Undetermined
[2020-02-05 12:18] LABS: Glucose,Whole Blood 58 mg/dL (75-99)
[2020-02-05] MEDS ORDERED: DEXTROSE 50% SYRINGE 50 ML IVP STA (12:28)
[2020-02-05] MEDS: NOREPINEPHRINE 4 MG in SODIUM CHLORIDE 0.9% 250 ML IV SCH (12:54)
[2020-02-05] MEDS: CLEVIDIPINE BUTYRATE 25 MG in EMPTY BAG 1 BAG IV SCH (12:54)
[2020-02-05 13:02] LABS: Potassium 3.4 mmol/L (3.5-5.1)
--- NOTE | 2020-02-05 13:12 | P.PN ---
Subjective Progress Note Date: 02/05/20 CHIEF COMPLAINT: Covid 19 pneumonia HISTORY OF PRESENT ILLNESS: Patient remains in the ICU and on mechanical ventilation. Patient is status post trach and PEG tube placement. She has been requiring a small amount of Levophed. Per nursing staff she is able to follow some commands. She is afebrile. WBC 4.0 hemoglobin 7.3 PHYSICAL EXAM: VITAL SIGNS: Reviewed. GENERAL: Well-developed in no acute distress. HEENT: No sclera icterus. Extraocular movements grossly intact. Moist buccal mucosa. Head is atraumatic, normocephalic. Tracheostomy site clean dry and intact ABDOMEN: Soft. Nondistended. Nontender. PEG tube site clean dry and intact NEUROLOGIC: Patient is intubated. She is able to open her eyes ASSESSMENT: 1. Acute hypoxic respiratory failure status post tracheostomy placement 2. Severe protein calorie malnutrition status post PEG tube placement 3. Acute hypoxic respiratory failure with Covid 19 pneumonia and pulmonary embolism PLAN: -tube feedings to be started today -Continue supportive care Physician Pipe Out Worker note has been reviewed by physician. Signing provider agrees with the documented findings, assessment, and plan of care. Objective - Vital Signs Vital signs: Vital Signs Temp 98.2 F 02/05/20 12:00 Pulse 82 02/05/20 13:00 Resp 26 H 02/05/20 13:00 BP 111/66 02/05/20 12:00 Pulse Ox 93 L 02/05/20 13:00 Intake & Output 02/04/20 02/05/20 02/05/20 18:59 06:59 18:59 Intake Total 522.283 522.219 251.239 Output Total 1630 1375 275 Balance -1107.717 -852.781 -23.761 Weight 85.2 kg 85.2 kg Intake: IV 450 253 161 .9 @ KVO 180 220 140 pressure bags 70 33 21 Intake, IV Titration 12.283 54.219 90.239 Amount Dexmedetomidine/0.9% NaCl 12.283 28.684 (Pmx) 400 mcg In Empty Bag 1 bag @ Titrate IV . Q0M [facility] Rx#:[id number] Norepinephrine 4 mg In 25.535 90.239 Sodium Chloride 0.9% 250 ml @ 0.05 MCG/KG/MIN 16. 231 mls/hr IV .[id number] [facility] Rx#:[id number] Oral 60 Tube Feeding 215 Output: Urine 1625 1375 275 Estimated Blood Loss 5 Other: Voiding Method Indwelling Catheter Indwelling Catheter Indwelling Catheter # Bowel Movements 1 ABP, PAP, CO, CI - Last Documented Arterial Blood Pressure 141/64 - Labs CBC & Chem 7: 02/05/20 04:50 02/05/20 12:35 Labs: Abnormal Lab Results - Last 24 Hours (Table) 02/04/20 02/05/20 02/05/20 Range/Units 17:44 04:50 04:50 RBC 2.36 L (3.80-5.40) m/uL Hgb 7.3 L (11.4-16.0) gm/dL Hct 22.4 L (34.0-46.0) % RDW 17.2 H (11.5-15.5) % Lymphocytes # 0.6 L (1.0-4.8) k/uL Fibrinogen 630 H (200-500) mg/dL D-Dimer 1.84 H (<0.60) mg/L FEU ABG pH 7.55 H (7.35-7.45) ABG pO2 78 L (83-108) mmHg ABG HCO3 36 H (21-25) mmol/L ABG Total CO2 37 H (19-24) mmol/L ABG O2 Saturation 98.1 H (94-97) % Potassium (3.5-5.1) mmol/L Carbon Dioxide (22-30) mmol/L BUN (7-17) mg/dL Glucose (74-99) mg/dL POC Glucose (mg/dL) (75-99) mg/dL Calcium (8.4-10.2) mg/dL Ferritin (10.0-291.0) ng/mL C-Reactive Protein (<10.0) mg/L Total Protein (6.3-8.2) g/dL Albumin (3.5-5.0) g/dL 02/05/20 02/05/20 02/05/20 Range/Units 04:50 05:55 12:16 RBC (3.80-5.40) m/uL Hgb (11.4-16.0) gm/dL Hct (34.0-46.0) % RDW (11.5-15.5) % Lymphocytes # (1.0-4.8) k/uL Fibrinogen (200-500) mg/dL D-Dimer (<0.60) mg/L FEU ABG pH 7.56 H* (7.35-7.45) ABG pO2 72 L (83-108) mmHg ABG HCO3 36 H (21-25) mmol/L ABG Total CO2 37 H (19-24) mmol/L ABG O2 Saturation 97.4 H (94-97) % Potassium 3.2 L (3.5-5.1) mmol/L Carbon Dioxide 36 H (22-30) mmol/L BUN 26 H (7-17) mg/dL Glucose 73 L (74-99) mg/dL POC Glucose (mg/dL) 58 L (75-99) mg/dL Calcium 8.1 L (8.4-10.2) mg/dL Ferritin 402.4 H (10.0-291.0) ng/mL C-Reactive Protein 70.1 H (<10.0) mg/L Total Protein 4.6 L (6.3-8.2) g/dL Albumin 2.1 L (3.5-5.0) g/dL 02/05/20 Range/Units 12:35 RBC (3.80-5.40) m/uL Hgb (11.4-16.0) gm/dL Hct (34.0-46.0) % RDW (11.5-15.5) % Lymphocytes # (1.0-4.8) k/uL Fibrinogen (200-500) mg/dL D-Dimer (<0.60) mg/L FEU ABG pH (7.35-7.45) ABG pO2 (83-108) mmHg ABG HCO3 (21-25) mmol/L ABG Total CO2 (19-24) mmol/L ABG O2 Saturation (94-97) % Potassium 3.4 L (3.5-5.1) mmol/L Carbon Dioxide (22-30) mmol/L BUN (7-17) mg/dL Glucose (74-99) mg/dL POC Glucose (mg/dL) (75-99) mg/dL Calcium (8.4-10.2) mg/dL Ferritin (10.0-291.0) ng/mL C-Reactive Protein (<10.0) mg/L Total Protein (6.3-8.2) g/dL Albumin (3.5-5.0) g/dL
[2020-02-05 13:17] LABS: Glucose,Whole Blood 107 mg/dL (75-99)
[2020-02-05] MEDS: POTASSIUM CHLORIDE 20 MEQ in WATER FOR INJECTION 1 100ML.BAG IVPB SCH ×2 (17:03→18:57)
[2020-02-05] MEDS: INSULIN DETEMIR (LEVEMIR) 100 UNIT/ML SYR SQ SCH (21:14)
[2020-02-05] MEDS: MELATONIN 5 MG TABLET PO SCH (21:15)
[2020-02-05] MEDS ORDERED: DEXMEDETOMIDINE/0.9% NACL(PMX) 400 MCG in EMPTY BAG 1 BAG IV SCH (22:45)
[2020-02-06 00:06] LABS: Glucose,Whole Blood 121 mg/dL (75-99)
[2020-02-06] MEDS: HYDROmorphone 0.5 MG/0.5 ML SYRINGE IVP PRN ×5 (00:30→15:36)
[2020-02-06] MEDS: INSULIN ASPART (NovoLOG) 100 UNIT/ML VIAL SQ SCH ×4 (00:31→18:30)
[2020-02-06] MEDS: NOREPINEPHRINE 4 MG in SODIUM CHLORIDE 0.9% 250 ML IV SCH ×2 (03:20→15:21)
[2020-02-06 05:04] LABS: Anisocytosis Slight; Basophils % (A) 0 %; Eosinophils # (A) 0.3 k/uL (0-0.7); Eosinophils % (A) 5 %; HCT 23.5 % (34.0-46.0); HGB 7.6 gm/dL (11.4-16.0); Hypochromasia Moderate; Lymphocytes # (A) 0.9 k/uL (1.0-4.8); Lymphocytes % (A) 17 %; MCH 31.1 pg (25.0-35.0); MCHC 32.4 g/dL (31.0-37.0); Macrocytosis Slight; Mean Platelet Volume 8.1; Monocytes # (A) 0.3 k/uL (0-1.0); Monocytes % (A) 5 %; Neutrophils # (A) 3.8 k/uL (1.3-7.7); Neutrophils % (A) 72 %; Platelet Count 257 k/uL (150-450); Poikilocytosis Slight; RBC 2.44 m/uL (3.80-5.40); RDW 17.1 % (11.5-15.5); WBC 5.3 k/uL (3.8-10.6)
[2020-02-06 05:18] LABS: ALT 30 U/L (4-34); AST 30 U/L (14-36); African American GFR (CKD) >90 (>60 ml/min/1.73 sqM); Albumin 2.2 g/dL (3.5-5.0); Alkaline Phosphatase 84 U/L (38-126); Anion Gap 0 mmol/L; Blood Urea Nitrogen 27 mg/dL (7-17); Calcium 8.3 mg/dL (8.4-10.2); Carbon Dioxide 37 mmol/L (22-30); Chloride 100 mmol/L (98-107); Glucose 123 mg/dL (74-99); Non-African American GFR(CKD) >90 (>60 ml/min/1.73 sqM); Potassium 3.3 mmol/L (3.5-5.1); Sodium 137 mmol/L (137-145); Total Bilirubin 0.8 mg/dL (0.2-1.3); Total Protein 4.8 g/dL (6.3-8.2)
[2020-02-06 05:26] LABS: D-Dimer 2.44 mg/L FEU (<0.60)
[2020-02-06 05:56] LABS: C Reactive Protein 177.8 mg/L (<10.0)
[2020-02-06] MEDS: POTASSIUM CHLORIDE 20 MEQ in WATER FOR INJECTION 1 100ML.BAG IVPB SCH ×2 (06:00→08:33)
[2020-02-06 06:17] LABS: Glucose,Whole Blood 176 mg/dL (75-99)
[2020-02-06 06:25] LABS: ABG HCO3 36 mmol/L (21-25); ABG PCO2 47 mmHg (35-45); ABG PH 7.49 (7.35-7.45); ABG PO2 71 mmHg (83-108); ABG TCO2 38 mmol/L (19-24); Allen Test Performed? Yes
[2020-02-06 06:26] LABS: ABG Base Excess 13.1 mmol/L
--- NOTE | 2020-02-06 07:06 | XR ---
EXAMINATION TYPE: XR chest 1V DATE OF EXAM: 02/06/2020 COMPARISON: 02/05/2020 INDICATION: Short of breath TECHNIQUE: Single frontal view of the chest is obtained. FINDINGS: The heart size is normal. The pulmonary vasculature is normal. Diffuse increased lung markings are present bilaterally greater in the right upper lobe. Findings are stable from comparison Tracheostomy tube is in the midline. PICC line enters on the right with the tip in superior vena cava region. Minimal left pleural effusion is present IMPRESSION: 1. Diffuse increased lung markings, stable compatible with atypical pneumonia. 2. Lines and catheters discussed above.
[2020-02-06] MEDS: ALBUTEROL HFA INHALER INHALATION SCH ×4 (07:31→20:39)
[2020-02-06] MEDS: CHLORHEXIDINE GLUCONATE 15 ML CUP MUCOUS MEM SCH ×2 (08:32→20:35)
[2020-02-06] MEDS: ASCORBIC ACID 500 MG TAB PO SCH (08:33)
[2020-02-06] MEDS: METOPROLOL TARTRATE 50 MG TAB PO SCH ×2 (08:33→20:35)
[2020-02-06] MEDS: FAMOTIDINE 20 MG TAB PO SCH (08:33)
[2020-02-06] MEDS: ZINC SULFATE 220 MG CAP PO SCH (08:33)
[2020-02-06] MEDS: AMIODARONE 200 MG TAB PO SCH (08:33)
[2020-02-06] MEDS: ENOXAPARIN 100 MG/ML SYRINGE SQ SCH ×2 (08:33→20:34)
[2020-02-06] MEDS: CHOLECALCIFEROL 1,000 UNIT TAB PO SCH (08:33)
[2020-02-06] MEDS: FUROSEMIDE 10 MG/ML 4 ML VIAL IV SCH (09:15)
[2020-02-06 09:41] LABS: Ferritin 479.5 ng/mL (10.0-291.0)
--- NOTE | 2020-02-06 10:35 | P.PN ---
Subjective Progress Note Date: 02/06/20 No new complaints at this time. Pt is now s/p trach/peg. LTACH dispo likely, pending. Objective - Vital Signs Vital signs: Vital Signs Temp 98.6 F 02/06/20 08:00 Pulse 66 02/06/20 10:00 Resp 22 02/06/20 10:00 BP 111/66 02/06/20 07:00 Pulse Ox 90 L 02/06/20 10:00 Intake & Output 02/05/20 02/06/20 02/06/20 18:59 06:59 18:59 Intake Total 389.239 832 422 Output Total 1425 1720 420 Balance -1035.761 -888 2 Weight 89.2 kg Intake: IV 299 262 192 .9 @ KVO 260 180 80 Potassium Chloride 20 meq 50 100 In Water For Injection 1 100ml.bag @ 50 mls/hr IVPB Q2H [facility] Rx#: [id number] pressure bags 39 32 12 Intake, IV Titration 90.239 Amount Norepinephrine 4 mg In 90.239 Sodium Chloride 0.9% 250 ml @ 0.05 MCG/KG/MIN 16. 231 mls/hr IV .[id number] [facility] Rx#:[id number] Tube Feeding 510 170 Other 60 60 Output: Urine 825 1720 420 Stool 600 Other: Voiding Method Indwelling Catheter Indwelling Catheter # Bowel Movements 1 ABP, PAP, CO, CI - Last Documented Arterial Blood Pressure 97/40 - Exam Gen: awake, alert HEENT: normocephalic, atraumatic, good hearing acuity, moist mucous membranes Resp: Vented via trach, tidal volume 400, FiO2 50%, PEEP 5, respiratory rate 16 CVS: good distal perfusion x 4, RRR, no murmurs, clicks, gallops GI: soft, NTTP, ND, +PEG : no SPT, no CVAT, stanton catheter is present MSK: no pitting edema, no clubbing Neuro: non-focal, no sensory deficits, appropriate tone - Labs CBC & Chem 7: 02/06/20 04:45 02/06/20 04:45 Labs: Abnormal Lab Results - Last 24 Hours (Table) 02/05/20 02/05/20 02/05/20 Range/Units 12:16 12:35 13:15 RBC (3.80-5.40) m/uL Hgb (11.4-16.0) gm/dL Hct (34.0-46.0) % RDW (11.5-15.5) % Lymphocytes # (1.0-4.8) k/uL Fibrinogen (200-500) mg/dL D-Dimer (<0.60) mg/L FEU ABG pH (7.35-7.45) ABG pCO2 (35-45) mmHg ABG pO2 (83-108) mmHg ABG HCO3 (21-25) mmol/L ABG Total CO2 (19-24) mmol/L Potassium 3.4 L (3.5-5.1) mmol/L Carbon Dioxide (22-30) mmol/L BUN (7-17) mg/dL Glucose (74-99) mg/dL POC Glucose (mg/dL) 58 L 107 H (75-99) mg/dL Calcium (8.4-10.2) mg/dL Ferritin (10.0-291.0) ng/mL C-Reactive Protein (<10.0) mg/L Total Protein (6.3-8.2) g/dL Albumin (3.5-5.0) g/dL 02/06/20 02/06/20 02/06/20 Range/Units 00:04 04:45 04:45 RBC 2.44 L (3.80-5.40) m/uL Hgb 7.6 L (11.4-16.0) gm/dL Hct 23.5 L (34.0-46.0) % RDW 17.1 H (11.5-15.5) % Lymphocytes # 0.9 L (1.0-4.8) k/uL Fibrinogen (200-500) mg/dL D-Dimer (<0.60) mg/L FEU ABG pH (7.35-7.45) ABG pCO2 (35-45) mmHg ABG pO2 (83-108) mmHg ABG HCO3 (21-25) mmol/L ABG Total CO2 (19-24) mmol/L Potassium 3.3 L (3.5-5.1) mmol/L Carbon Dioxide 37 H (22-30) mmol/L BUN 27 H (7-17) mg/dL Glucose 123 H (74-99) mg/dL POC Glucose (mg/dL) 121 H (75-99) mg/dL Calcium 8.3 L (8.4-10.2) mg/dL Ferritin 479.5 H (10.0-291.0) ng/mL C-Reactive Protein 177.8 H (<10.0) mg/L Total Protein 4.8 L (6.3-8.2) g/dL Albumin 2.2 L (3.5-5.0) g/dL 02/06/20 02/06/20 02/06/20 Range/Units 04:45 05:59 06:16 RBC (3.80-5.40) m/uL Hgb (11.4-16.0) gm/dL Hct (34.0-46.0) % RDW (11.5-15.5) % Lymphocytes # (1.0-4.8) k/uL Fibrinogen 667 H (200-500) mg/dL D-Dimer 2.44 H (<0.60) mg/L FEU ABG pH 7.49 H (7.35-7.45) ABG pCO2 47 H (35-45) mmHg ABG pO2 71 L (83-108) mmHg ABG HCO3 36 H (21-25) mmol/L ABG Total CO2 38 H (19-24) mmol/L Potassium (3.5-5.1) mmol/L Carbon Dioxide (22-30) mmol/L BUN (7-17) mg/dL Glucose (74-99) mg/dL POC Glucose (mg/dL) 176 H (75-99) mg/dL Calcium (8.4-10.2) mg/dL Ferritin (10.0-291.0) ng/mL C-Reactive Protein (<10.0) mg/L Total Protein (6.3-8.2) g/dL Albumin (3.5-5.0) g/dL Assessment and Plan Assessment: 1. Acute Hypoxemic Respiratory Failure secondary to ARDS 2. ARDS secondary to COVID-19 3. Bicytopenia: Anemia/Thrombocytopenia 4. Anasarca 5. Pulmonary Embolism without cor pulmonale, History of DVT 6. Paroxysmal Atrial Fibrillation with RVR 7. Enterococcus and E. coli Complicated UTI 79 year old woman with history of HTN, DVT presented with dyspnea and found to have acute hypoxemic respiratory failure secondary to COVID-19 positive status as well as pulmonary embolism discovered on admission. She was discovered to be in A Fib with RVR while on the selective unit, and was ultimately controlled with metoprolol and amiodarone. She developed ARDS during her hospitalization, and ultimately required mechanical ventilation. She was intubated on 01/15, and since that time has not been able to be weaned. Covid 19 pneumonia with acute hypoxic respiratory failure, ARDS - Failing weaning trials, now with trach/peg 02/03 - Completed Remdesivir on 01/15 - s/p Dexamethasone day #17 days completed - Status post convalescent plasma 01/14 - Continue zinc, vitamin C, vitamin D, Pepcid, and melatonin Labile Blood Pressure - obtain cortisol random level, - then AM cortisol tomorrow - consideration of stress steroids Anemia, undetermined cause, thrombocytopenia, likely reactive - 1 unit pRBC 01/25/2020 - Stable now - suspect due to slow leak from TLC site. - Lovenox. dose adjusted by pulm for bleeding - Pulm wants to hold off transfusion at this point DIffuse Anasarca - Lasix X 1 given 01/22, repeated 01/25 Pulmonary embolus without right ventricular strain, history of prior DVT - Lovenox P. A fib with RVR - lovenox, amio - now in NSR Entercoccus and E coli UTI -Status post treatment with Levaquin, stop date 01/31 Thrombocytopenia KALYAN due to ATN with resultant metabolic acidosis and hyperphosphatemia, resolved Septic shock, resolved Hypokalemia, resolved DVT prophylaxis: Lovenox for PE Discussed with: Nursing, ICU team Anticipated discharge: undetermined Anticipated discharge place: Undetermined
[2020-02-06] MEDS: CLEVIDIPINE BUTYRATE 25 MG in EMPTY BAG 1 BAG IV SCH (11:17)
[2020-02-06 11:42] LABS: Glucose,Whole Blood 121 mg/dL (75-99)
--- NOTE | 2020-02-06 12:23 | P.PN ---
Subjective Progress Note Date: 02/06/20 A 79-year-old female patient who was admitted on 01/09/2020 with COVID 19 related pneumonia and acute pulmonary embolism. I was involved in the care of her back then. I'm seeing her today in follow-up. The patient's course was noted . She had developed hypoxic respiratory failure requiring intubation mechanical ventilation was done on 01/16/2020. She has been on a mechanical ventilator since. She has not shown significant improvement. She received remdesivir and convalescent plasma. The wanted everything done including a tracheostomy and PEG tube insertion. The patient was scheduled to undergo the procedure yesterday. This was not done as the changed his mind. The patient may possibly go with comfort care measures. For now, the patient remains intubated on a mechanical ventilator. She is an assist-control mode rate of 25 and a tidal volume of 350 and FiO2 of 45% and PEEP of 10. The patient has had numerous awakening trials which she failed and the patient will weaning parameters. She is currently is sedated with propofol running at 35 g per KG per minute. The patient on enteral feeding for nutritional support with vital high protein. This is running at 40 mL an hour. She has developed a UTI and she is being treated with antibiotics. Urine cultures have shown E. coli Enterococcus faecalis. I believe this patient's family is opting towards comfort care measures with the next 24-48 hours and for that reason the PEG tube insertion a tracheostomy tube insertion has been canceled for now. The blood gases from today showed a pH of 7.44 with a pCO2 of 45 and pO2 of 78. Chest x- ray from today showing ET tube is in a good location. The patient has a PICC line in the right upper extremity. NG tube is in a good patient. There are diffuse bilateral pulmonary infiltrate with aspirin. Right more than left. today's evaluation of 02/03/2020, the patient is currently on Precedex for sedation. The drip is running at 0.7 g per KG. She is well sedated for now and she is calm and comfortable. He is on mechanical ventilator on assist control mode at the rate of 25 with a tidal volume of 650 and FiO2 of 45% and PEEP of 6. The pH is at 7.52 with a pCO2 of 41 and pO2 of 81. Chest x-ray from this morning shows adequate positioning of the atrial. NG tube is in a good location. There is still bilateral pulmonary infiltrates and possibly some effusion the lung bases. The patient remains off Decadron. The patient was given a sedation holiday yesterday. She has been weaning parameters. She underwent WEANING trials with a pressure support of 7 and a PEEP of 5 and the subsequent blood gases were adequate. Nevertheless, she was quite weak and I was has been and extubating this patient.she has taken Lovenox therapeutic doses of 90 mg subcu every 12 hours. She was started on Lasix yesterday and the fluid balance is -2.7 L over the past 24 hours. Blood work from today shows a potassium level of 3.2 to be replaced. Otherwise normal renal function. Slightly alkalotic with a serum bicarbonate 35. on today's pcfkwantnl84/09/2020, the patient is off sedation. I had a lengthy conversation with the patient and I also discussed the case with and cardiothoracic surgeon at [facility]. The plan is to proceed with a tracheostomy tube ineffective insertion today. The patient me was on a mechanical ventilator. She is currently on a assist-control rate of 25 with a tidal volume of 350 and FiO2 of 45% with a PEEP of 5. The blood gases from today shows adequate oxygenation.He is at 7.59 with a pCO2 of 38 and pO2 of 65. The chest x-ray from today is unchanged compared to yesterday. There is diffuse breath and pulmonary infiltrates which remain unchanged. ET tube is in a good location. The NG tube also is in a good location. Her tube feeds are currently on hold awaiting a tracheostomy and vancomycin insertion today. Hemodynamically she is stable. She is on no pressors. She was given Lasix over the past 24 or 48 hours and the patient is a negative fluid balance of 2.7 L and 2.1 L over the past 48 hours.tthe patient is following some simple commands. She is extremely weak. She is able to wiggle her toes on command. He is also limited in her eyes. She is currently off sedation. 02/05/2020, the patient is post tracheostomy tube insertion. Also on Precedex running at 0.2 mcg/kg/h. She is arousable. She grimaces. She blinks her eyes upon demand. She is trying to move. She is profoundly weak. Unable to raise her head of the bed. She continues to be edematous in all 4 extremities. She is on a mechanical ventilator. She was on assist control of 25 with a tidal vol ume of 350 and a PEEP of 5 with a FiO2 of 45%. No significant external tracheostomy tube. The patient had a blood. That showed a pH of 7.55 with a pCO2 of 40 and pO2 of 71.6. Chest x-ray shows no interval change. The patient had a PEG tube insertion and she will be started on enteral feeding for nutritional support. No other complaints otherwise for now. She is hemodynamically stable. She is having some hypertensive reactions on and off and her blood pressure is sometimes labile which she developed also hypotension. She is currently on a minimal dose of norepinephrine infusion for blood pressure support. Her blood work from today shows a hemoglobin of 7.3. Renal function stable. Electrolytes are all stable. Albumin is at 2.1. 02/06/2020 the patient is still off sedation, and she is not following any specific commands. She opens her eyes. She gazes around. Unresponsive. She was doing some blinking upon demand yesterday and she is not doing it today. Vent settings are essentially unchanged and she is on assist control mode at the rate of 25 with a tidal volume of 350 and PEEP of 5 with an FiO2 of 45%. The pH is at 7.49 with a pCO2 of 47 and pO2 of 71. D-dimer is at 2.44. She continues to have a labile blood pressure. She is getting out his IV Lasix. Edema is improving. The patient is a negative fluid balance of 1.9 L over the past 24 hours. The hemoglobin stable at 7.6 with a white cell count of 5.3. Objective - Vital Signs Vital signs: Vital Signs Temp 98.6 F 02/06/20 08:00 Pulse 74 02/06/20 11:00 Resp 26 H 02/06/20 11:00 BP 111/66 02/06/20 07:00 Pulse Ox 92 L 02/06/20 11:00 Intake & Output 02/05/20 02/06/20 02/06/20 18:59 06:59 18:59 Intake Total 389.239 832 444 Output Total 1425 1720 570 Balance -1035.761 -888 -126 Weight 89.2 kg 89.2 kg Intake: IV 299 262 214 .9 @ KVO 260 180 100 Potassium Chloride 20 meq 50 100 In Water For Injection 1 100ml.bag @ 50 mls/hr IVPB Q2H [facility] Rx#: [id number] pressure bags 39 32 14 Intake, IV Titration 90.239 Amount Norepinephrine 4 mg In 90.239 Sodium Chloride 0.9% 250 ml @ 0.05 MCG/KG/MIN 16. 231 mls/hr IV .[id number] [facility] Rx#:[id number] Tube Feeding 510 170 Other 60 60 Output: Urine 825 1720 570 Stool 600 Other: Voiding Method Indwelling Catheter Indwelling Catheter # Bowel Movements 1 ABP, PAP, CO, CI - Last Documented Arterial Blood Pressure 135/61 - Exam GENERAL EXAM: Alert, very pleasant 79-year-old female patient which is currently intubated on a mechanical ventilator. Orogastric and orotracheal tube are both in place. HEAD: Normocephalic. EYES: Normal reaction of pupils, equal size. NOSE: Clear with pink turbinates. THROAT: No erythema or exudates. NECK: No masses, no JVD. A subclavian catheter was established on the right side. on the right side.CHEST: No chest wall deformity. LUNGS: Equal air entry with scattered rhonchi., The patient is crackles lung bases bilaterally. CVS: S1 and S2 normal with no audible murmur, irregular rhythm. ABDOMEN: No hepatosplenomegaly, normal bowel sounds, no guarding or rigidity. SPINE: No scoliosis or deformity SKIN: No rashes CENTRAL NERVOUS SYSTEM: the patient is currently sedated, comfortable centimeters the mechanical ventilator. EXTREMITIES: There is there is improvement in peripheral edema bilaterally. No clubbing, no cyanosis. Peripheral pulses are intact. - Labs CBC & Chem 7: 02/06/20 04:45 02/06/20 04:45 Labs: Abnormal Lab Results - Last 24 Hours (Table) 02/05/20 02/05/20 02/05/20 Range/Units 12:16 12:35 13:15 RBC (3.80-5.40) m/uL Hgb (11.4-16.0) gm/dL Hct (34.0-46.0) % RDW (11.5-15.5) % Lymphocytes # (1.0-4.8) k/uL Fibrinogen (200-500) mg/dL D-Dimer (<0.60) mg/L FEU ABG pH (7.35-7.45) ABG pCO2 (35-45) mmHg ABG pO2 (83-108) mmHg ABG HCO3 (21-25) mmol/L ABG Total CO2 (19-24) mmol/L Potassium 3.4 L (3.5-5.1) mmol/L Carbon Dioxide (22-30) mmol/L BUN (7-17) mg/dL Glucose (74-99) mg/dL POC Glucose (mg/dL) 58 L 107 H (75-99) mg/dL Calcium (8.4-10.2) mg/dL Ferritin (10.0-291.0) ng/mL C-Reactive Protein (<10.0) mg/L Total Protein (6.3-8.2) g/dL Albumin (3.5-5.0) g/dL 02/06/20 02/06/20 02/06/20 Range/Units 00:04 04:45 04:45 RBC 2.44 L (3.80-5.40) m/uL Hgb 7.6 L (11.4-16.0) gm/dL Hct 23.5 L (34.0-46.0) % RDW 17.1 H (11.5-15.5) % Lymphocytes # 0.9 L (1.0-4.8) k/uL Fibrinogen (200-500) mg/dL D-Dimer (<0.60) mg/L FEU ABG pH (7.35-7.45) ABG pCO2 (35-45) mmHg ABG pO2 (83-108) mmHg ABG HCO3 (21-25) mmol/L ABG Total CO2 (19-24) mmol/L Potassium 3.3 L (3.5-5.1) mmol/L Carbon Dioxide 37 H (22-30) mmol/L BUN 27 H (7-17) mg/dL Glucose 123 H (74-99) mg/dL POC Glucose (mg/dL) 121 H (75-99) mg/dL Calcium 8.3 L (8.4-10.2) mg/dL Ferritin 479.5 H (10.0-291.0) ng/mL C-Reactive Protein 177.8 H (<10.0) mg/L Total Protein 4.8 L (6.3-8.2) g/dL Albumin 2.2 L (3.5-5.0) g/dL 02/06/20 02/06/20 02/06/20 Range/Units 04:45 05:59 06:16 RBC (3.80-5.40) m/uL Hgb (11.4-16.0) gm/dL Hct (34.0-46.0) % RDW (11.5-15.5) % Lymphocytes # (1.0-4.8) k/uL Fibrinogen 667 H (200-500) mg/dL D-Dimer 2.44 H (<0.60) mg/L FEU ABG pH 7.49 H (7.35-7.45) ABG pCO2 47 H (35-45) mmHg ABG pO2 71 L (83-108) mmHg ABG HCO3 36 H (21-25) mmol/L ABG Total CO2 38 H (19-24) mmol/L Potassium (3.5-5.1) mmol/L Carbon Dioxide (22-30) mmol/L BUN (7-17) mg/dL Glucose (74-99) mg/dL POC Glucose (mg/dL) 176 H (75-99) mg/dL Calcium (8.4-10.2) mg/dL Ferritin (10.0-291.0) ng/mL C-Reactive Protein (<10.0) mg/L Total Protein (6.3-8.2) g/dL Albumin (3.5-5.0) g/dL 02/06/20 Range/Units 11:40 RBC (3.80-5.40) m/uL Hgb (11.4-16.0) gm/dL Hct (34.0-46.0) % RDW (11.5-15.5) % Lymphocytes # (1.0-4.8) k/uL Fibrinogen (200-500) mg/dL D-Dimer (<0.60) mg/L FEU ABG pH (7.35-7.45) ABG pCO2 (35-45) mmHg ABG pO2 (83-108) mmHg ABG HCO3 (21-25) mmol/L ABG Total CO2 (19-24) mmol/L Potassium (3.5-5.1) mmol/L Carbon Dioxide (22-30) mmol/L BUN (7-17) mg/dL Glucose (74-99) mg/dL POC Glucose (mg/dL) 121 H (75-99) mg/dL Calcium (8.4-10.2) mg/dL Ferritin (10.0-291.0) ng/mL C-Reactive Protein (<10.0) mg/L Total Protein (6.3-8.2) g/dL Albumin (3.5-5.0) g/dL Assessment and Plan Plan: 1 acute hypoxic respiratory failure predominantly secondary to Covid 19 related pneumonia and there is also some contribution to her hypoxemia because of the pulmonary embolism. The predominant factor contributing to respiratory failure is Covid 19 related pneumonia as the patient developed diffuse breath and pulmonary infiltrates with progressive hypoxemia despite ongoing treatment. The patient was intubated on 01/16/2020 and the patient currently remains intubated sedated on a mechanical ventilator. Blood gases was noted. the patient has a tracheostomy tube in place for now. The patient is being adequately ventilated. Tracheostomy tube in place. The patient is postop day #2. She is currently on no sedation. The patient is on a VC plus mode of mechanical ventilation. She is quite extensive the mechanical ventilator. Blood gases was noted. The chest x-ray showed d diffuse bilateral interstitial lung markings compatible with Covid 19 related pneumonia 2 acute right-sided pulmonary embolism, probably related to Covid 19 related hypercoagulability.The patient is currently on Lovenox therapeutic dose, 60 mg subcu every 12 hours. 3 Covid 19 related pneumonia 4 recurrent atrial fibrillation with rapid response. The patient is on Metoprolol and amiodarone. Patient is already and anticoagulation. she is on therapeutic dose of Lovenox 90 mg every 12 hours. 5 hypotension, recovered, continues to have labile blood pressure, minimal amount of norepinephrine infusion for now 6 remote history of DVT and the patient was taken Xarelto on outpatient basis 7 hypertension 8 acute kidney injury, recovered and the renal function improved and normalized 9 non-anion gap metabolic acidosis, recovered 10 Chronic anemia, multifactorial. plan continue ventilator support reduce the dose of Lasix to 40 Mg Once a Day enteral feeding for nutritional support. VC plus mode at the rate of 14, tidal volume of 400 and FiO2 of 45% with a PEEP of 5 Completed 10 days course of Decadron 6 mg , completed the course of Remdesivir per protocol in addition to the rest of the supplements including vitamin C, vitamin D, melatonin, Pepcid and zinc The patient received a unit of convalescent plasma. Lovenox therapeutic dose of 90 mg every 12 hours. Cardiac rhythm is atrial fibrillation /sinus and the patient is on Metoprolol and amiodarone. off sedation and assess mental status Initiate a consultation to transfer this patient is a select specialty critically care evaluation was done and more than 30 minutes. Time with Patient: Greater than 30
[2020-02-06] MEDS: ACETAMINOPHEN TAB 325 MG TAB PO PRN (12:41)
--- NOTE | 2020-02-06 13:05 | P.PN ---
Subjective Progress Note Date: 02/06/20 CHIEF COMPLAINT: Covid 19 pneumonia HISTORY OF PRESENT ILLNESS: Patient remains in the ICU and on mechanical ventilation. Patient remains off sedation. Patient is status post trach and PEG tube placement. Patient started on tube feeding yesterday. Patient is tolerating tube feedings. She is currently off of vasopressors. Per nursing staff she is able to follow some commands. Temp 100.1 WBC 5.3 hemoglobin 7.6 potassium 3.3 PHYSICAL EXAM: VITAL SIGNS: Reviewed. GENERAL: Well-developed in no acute distress. HEENT: No sclera icterus. Extraocular movements grossly intact. Moist buccal mucosa. Head is atraumatic, normocephalic. Tracheostomy site clean dry and intact ABDOMEN: Soft. Nondistended. Nontender. PEG tube site clean dry and intact NEUROLOGIC: Patient is intubated. She is able to open her eyes ASSESSMENT: 1. Acute hypoxic respiratory failure status post tracheostomy placement 2. Severe protein calorie malnutrition status post PEG tube placement 3. Acute hypoxic respiratory failure with Covid 19 pneumonia and pulmonary embolism PLAN: -Continue tube feedings -Potassium being replaced -Continue supportive care Physician Normalizer note has been reviewed by physician. Signing provider agrees with the documented findings, assessment, and plan of care. Objective - Vital Signs Vital signs: Vital Signs Temp 101.3 F H 02/06/20 12:00 Pulse 86 02/06/20 12:00 Resp 22 02/06/20 12:00 BP 111/66 02/06/20 07:00 Pulse Ox 90 L 02/06/20 12:00 Intake & Output 02/05/20 02/06/20 02/06/20 18:59 06:59 18:59 Intake Total 389.239 832 666 Output Total 1425 1720 1470 Balance -1035.761 -888 -804 Weight 89.2 kg 89.2 kg Intake: IV 299 262 236 .9 @ KVO 260 180 120 Potassium Chloride 20 meq 50 100 In Water For Injection 1 100ml.bag @ 50 mls/hr IVPB Q2H [facility] Rx#: [id number] pressure bags 39 32 16 Intake, IV Titration 90.239 Amount Norepinephrine 4 mg In 90.239 Sodium Chloride 0.9% 250 ml @ 0.05 MCG/KG/MIN 16. 231 mls/hr IV .[id number] [facility] Rx#:[id number] Tube Feeding 510 340 Other 60 90 Output: Urine 825 1720 870 Stool 600 600 Other: Voiding Method Indwelling Catheter Indwelling Catheter Indwelling Catheter # Voids 2 # Bowel Movements 1 ABP, PAP, CO, CI - Last Documented Arterial Blood Pressure 131/61 - Labs CBC & Chem 7: 02/06/20 04:45 02/06/20 04:45 Labs: Abnormal Lab Results - Last 24 Hours (Table) 02/05/20 02/06/20 02/06/20 Range/Units 13:15 00:04 04:45 RBC (3.80-5.40) m/uL Hgb (11.4-16.0) gm/dL Hct (34.0-46.0) % RDW (11.5-15.5) % Lymphocytes # (1.0-4.8) k/uL Fibrinogen (200-500) mg/dL D-Dimer (<0.60) mg/L FEU ABG pH (7.35-7.45) ABG pCO2 (35-45) mmHg ABG pO2 (83-108) mmHg ABG HCO3 (21-25) mmol/L ABG Total CO2 (19-24) mmol/L Potassium 3.3 L (3.5-5.1) mmol/L Carbon Dioxide 37 H (22-30) mmol/L BUN 27 H (7-17) mg/dL Glucose 123 H (74-99) mg/dL POC Glucose (mg/dL) 107 H 121 H (75-99) mg/dL Calcium 8.3 L (8.4-10.2) mg/dL Ferritin 479.5 H (10.0-291.0) ng/mL C-Reactive Protein 177.8 H (<10.0) mg/L Total Protein 4.8 L (6.3-8.2) g/dL Albumin 2.2 L (3.5-5.0) g/dL 02/06/20 02/06/20 02/06/20 Range/Units 04:45 04:45 05:59 RBC 2.44 L (3.80-5.40) m/uL Hgb 7.6 L (11.4-16.0) gm/dL Hct 23.5 L (34.0-46.0) % RDW 17.1 H (11.5-15.5) % Lymphocytes # 0.9 L (1.0-4.8) k/uL Fibrinogen 667 H (200-500) mg/dL D-Dimer 2.44 H (<0.60) mg/L FEU ABG pH 7.49 H (7.35-7.45) ABG pCO2 47 H (35-45) mmHg ABG pO2 71 L (83-108) mmHg ABG HCO3 36 H (21-25) mmol/L ABG Total CO2 38 H (19-24) mmol/L Potassium (3.5-5.1) mmol/L Carbon Dioxide (22-30) mmol/L BUN (7-17) mg/dL Glucose (74-99) mg/dL POC Glucose (mg/dL) (75-99) mg/dL Calcium (8.4-10.2) mg/dL Ferritin (10.0-291.0) ng/mL C-Reactive Protein (<10.0) mg/L Total Protein (6.3-8.2) g/dL Albumin (3.5-5.0) g/dL 02/06/20 02/06/20 Range/Units 06:16 11:40 RBC (3.80-5.40) m/uL Hgb (11.4-16.0) gm/dL Hct (34.0-46.0) % RDW (11.5-15.5) % Lymphocytes # (1.0-4.8) k/uL Fibrinogen (200-500) mg/dL D-Dimer (<0.60) mg/L FEU ABG pH (7.35-7.45) ABG pCO2 (35-45) mmHg ABG pO2 (83-108) mmHg ABG HCO3 (21-25) mmol/L ABG Total CO2 (19-24) mmol/L Potassium (3.5-5.1) mmol/L Carbon Dioxide (22-30) mmol/L BUN (7-17) mg/dL Glucose (74-99) mg/dL POC Glucose (mg/dL) 176 H 121 H (75-99) mg/dL Calcium (8.4-10.2) mg/dL Ferritin (10.0-291.0) ng/mL C-Reactive Protein (<10.0) mg/L Total Protein (6.3-8.2) g/dL Albumin (3.5-5.0) g/dL
[2020-02-06 18:29] LABS: Glucose,Whole Blood 187 mg/dL (75-99)
[2020-02-06 20:29] LABS: Glucose,Whole Blood 131 mg/dL (75-99)
[2020-02-06] MEDS: INSULIN DETEMIR (LEVEMIR) 100 UNIT/ML SYR SQ SCH (20:33)
[2020-02-06] MEDS: MELATONIN 5 MG TABLET PO SCH (20:35)
[2020-02-06] MEDS: POTASSIUM CHLORIDE ER 20 MEQ TAB.ER PO SCH ×2 (21:00→23:03)
[2020-02-06 23:22] LABS: Glucose,Whole Blood 140 mg/dL (75-99)
[2020-02-07 00:44] LABS: Glucose,Whole Blood 189 mg/dL (75-99)
[2020-02-07] MEDS: INSULIN ASPART (NovoLOG) 100 UNIT/ML VIAL SQ SCH ×4 (00:50→18:50)
[2020-02-07] MEDS: HYDROmorphone 0.5 MG/0.5 ML SYRINGE IVP PRN ×5 (01:25→22:58)
[2020-02-07 05:00] LABS: Glucose,Whole Blood 155 mg/dL (75-99)
[2020-02-07 05:34] LABS: ABG Base Excess 13.6 mmol/L; ABG HCO3 36 mmol/L (21-25); ABG Oxygen Saturation 95.1 % (94-97); ABG PCO2 41 mmHg (35-45); ABG PH 7.55 (7.35-7.45); ABG PO2 62 mmHg (83-108); ABG TCO2 37 mmol/L (19-24); Allen Test Performed? Yes
[2020-02-07 05:37] LABS: Anisocytosis Slight; Basophils % (A) 0 %; Eosinophils # (A) 0.3 k/uL (0-0.7); Eosinophils % (A) 4 %; HCT 22.2 % (34.0-46.0); HGB 7.1 gm/dL (11.4-16.0); Hypochromasia Marked; Lymphocytes % (A) 15 %; MCH 31.1 pg (25.0-35.0); MCHC 32.1 g/dL (31.0-37.0); MCV 96.8 fL (80.0-100.0); Macrocytosis Slight; Mean Platelet Volume 7.8; Monocytes # (A) 0.3 k/uL (0-1.0); Monocytes % (A) 5 %; Neutrophils # (A) 5.1 k/uL (1.3-7.7); Neutrophils % (A) 75 %; Platelet Count 285 k/uL (150-450); Poikilocytosis Slight; RBC 2.29 m/uL (3.80-5.40); WBC 6.7 k/uL (3.8-10.6)
[2020-02-07 08:04] LABS: ALT 24 U/L (4-34); AST 25 U/L (14-36); African American GFR (CKD) >90 (>60 ml/min/1.73 sqM); Alkaline Phosphatase 85 U/L (38-126); Anion Gap 0 mmol/L; Blood Urea Nitrogen 32 mg/dL (7-17); Carbon Dioxide 36 mmol/L (22-30); Chloride 104 mmol/L (98-107); Creatine Kinase 34 U/L (30-135); Glucose 141 mg/dL (74-99); Non-African American GFR(CKD) >90 (>60 ml/min/1.73 sqM); Potassium 3.9 mmol/L (3.5-5.1); Sodium 140 mmol/L (137-145); Total Bilirubin 0.5 mg/dL (0.2-1.3); Total Protein 4.5 g/dL (6.3-8.2)
[2020-02-07 08:22] LABS: C Reactive Protein 161.5 mg/L (<10.0)
[2020-02-07] MEDS: FAMOTIDINE 20 MG TAB PO SCH (08:34)
[2020-02-07] MEDS: ZINC SULFATE 220 MG CAP PO SCH (08:34)
[2020-02-07] MEDS: AMIODARONE 200 MG TAB PO SCH (08:34)
[2020-02-07] MEDS: METOPROLOL TARTRATE 50 MG TAB PO SCH ×2 (08:34→20:50)
[2020-02-07] MEDS: CHOLECALCIFEROL 1,000 UNIT TAB PO SCH (08:34)
[2020-02-07] MEDS: ASCORBIC ACID 500 MG TAB PO SCH (08:34)
[2020-02-07] MEDS: ENOXAPARIN 100 MG/ML SYRINGE SQ SCH ×2 (08:34→20:48)
[2020-02-07] MEDS: FUROSEMIDE 10 MG/ML 4 ML VIAL IV SCH (08:35)
[2020-02-07] MEDS: CHLORHEXIDINE GLUCONATE 15 ML CUP MUCOUS MEM SCH ×2 (08:35→20:49)
[2020-02-07] MEDS: ALBUTEROL HFA INHALER INHALATION SCH ×4 (09:03→21:53)
--- NOTE | 2020-02-07 09:07 | P.PN ---
Subjective Progress Note Date: 02/07/20 A 79-year-old female patient who was admitted on 01/09/2020 with COVID 19 related pneumonia and acute pulmonary embolism. I was involved in the care of her back then. I'm seeing her today in follow-up. The patient's course was noted . She had developed hypoxic respiratory failure requiring intubation mechanical ventilation was done on 01/16/2020. She has been on a mechanical ventilator since. She has not shown significant improvement. She received remdesivir and convalescent plasma. The wanted everything done including a tracheostomy and PEG tube insertion. The patient was scheduled to undergo the procedure yesterday. This was not done as the changed his mind. The patient may possibly go with comfort care measures. For now, the patient remains intubated on a mechanical ventilator. She is an assist-control mode rate of 25 and a tidal volume of 350 and FiO2 of 45% and PEEP of 10. The patient has had numerous awakening trials which she failed and the patient will weaning parameters. She is currently is sedated with propofol running at 35 g per KG per minute. The patient on enteral feeding for nutritional support with vital high protein. This is running at 40 mL an hour. She has developed a UTI and she is being treated with antibiotics. Urine cultures have shown E. coli Enterococcus faecalis. I believe this patient's family is opting towards comfort care measures with the next 24-48 hours and for that reason the PEG tube insertion a tracheostomy tube insertion has been canceled for now. The blood gases from today showed a pH of 7.44 with a pCO2 of 45 and pO2 of 78. Chest x- ray from today showing ET tube is in a good location. The patient has a PICC line in the right upper extremity. NG tube is in a good patient. There are diffuse bilateral pulmonary infiltrate with aspirin. Right more than left. today's evaluation of 02/03/2020, the patient is currently on Precedex for sedation. The drip is running at 0.7 g per KG. She is well sedated for now and she is calm and comfortable. He is on mechanical ventilator on assist control mode at the rate of 25 with a tidal volume of 650 and FiO2 of 45% and PEEP of 6. The pH is at 7.52 with a pCO2 of 41 and pO2 of 81. Chest x-ray from this morning shows adequate positioning of the atrial. NG tube is in a good location. There is still bilateral pulmonary infiltrates and possibly some effusion the lung bases. The patient remains off Decadron. The patient was given a sedation holiday yesterday. She has been weaning parameters. She underwent WEANING trials with a pressure support of 7 and a PEEP of 5 and the subsequent blood gases were adequate. Nevertheless, she was quite weak and I was has been and extubating this patient.she has taken Lovenox therapeutic doses of 90 mg subcu every 12 hours. She was started on Lasix yesterday and the fluid balance is -2.7 L over the past 24 hours. Blood work from today shows a potassium level of 3.2 to be replaced. Otherwise normal renal function. Slightly alkalotic with a serum bicarbonate 35. on today's [id number]/09/2020, the patient is off sedation. I had a lengthy conversation with the patient and I also discussed the case with and cardiothoracic surgeon at [facility]. The plan is to proceed with a tracheostomy tube ineffective insertion today. The patient me was on a mechanical ventilator. She is currently on a assist-control rate of 25 with a tidal volume of 350 and FiO2 of 45% with a PEEP of 5. The blood gases from today shows adequate oxygenation.He is at 7.59 with a pCO2 of 38 and pO2 of 65. The chest x-ray from today is unchanged compared to yesterday. There is diffuse breath and pulmonary infiltrates which remain unchanged. ET tube is in a good location. The NG tube also is in a good location. Her tube feeds are currently on hold awaiting a tracheostomy and vancomycin insertion today. Hemodynamically she is stable. She is on no pressors. She was given Lasix over the past 24 or 48 hours and the patient is a negative fluid balance of 2.7 L and 2.1 L over the past 48 hours.tthe patient is following some simple commands. She is extremely weak. She is able to wiggle her toes on command. He is also limited in her eyes. She is currently off sedation. 02/05/2020, the patient is post tracheostomy tube insertion. Also on Precedex running at 0.2 mcg/kg/h. She is arousable. She grimaces. She blinks her eyes upon demand. She is trying to move. She is profoundly weak. Unable to raise her head of the bed. She continues to be edematous in all 4 extremities. She is on a mechanical ventilator. She was on assist control of 25 with a tidal vol ume of 350 and a PEEP of 5 with a FiO2 of 45%. No significant external tracheostomy tube. The patient had a blood. That showed a pH of 7.55 with a pCO2 of 40 and pO2 of 71.6. Chest x-ray shows no interval change. The patient had a PEG tube insertion and she will be started on enteral feeding for nutritional support. No other complaints otherwise for now. She is hemodynamically stable. She is having some hypertensive reactions on and off and her blood pressure is sometimes labile which she developed also hypotension. She is currently on a minimal dose of norepinephrine infusion for blood pressure support. Her blood work from today shows a hemoglobin of 7.3. Renal function stable. Electrolytes are all stable. Albumin is at 2.1. 02/06/2020 the patient is still off sedation, and she is not following any specific commands. She opens her eyes. She gazes around. Unresponsive. She was doing some blinking upon demand yesterday and she is not doing it today. Vent settings are essentially unchanged and she is on assist control mode at the rate of 25 with a tidal volume of 350 and PEEP of 5 with an FiO2 of 45%. The pH is at 7.49 with a pCO2 of 47 and pO2 of 71. D-dimer is at 2.44. She continues to have a labile blood pressure. She is getting out his IV Lasix. Edema is improving. The patient is a negative fluid balance of 1.9 L over the past 24 hours. The hemoglobin stable at 7.6 with a white cell count of 5.3. On 02/07/2020, the patient is still on a mechanical ventilator. She is still requiring Precedex on and off to control her restlessness. She opens up her eyes. She was able to wiggle her toes and the commands. She was also able to blink when asked to do so. She does not do this consistently. She is on a mechanical ventilator on assist control mode at a rate of 25 with a tidal volume of 350 and FiO2 45% with 5. Chest x-ray sores bilateral diffuse pulmonary infiltrates. She is afebrile. Past from today showed a pH of 7.54 with a pCO2 of 41 and pO2 of 62 patient's electrolytes are all within normal limits. She doesn't want to metabolic acidosis with a bicarb level of 36. Data BUN is at 32 with a creatinine of 0.5. Her CRP level is at 161. The patient remains on Lovenox 90 mg subcu every 12 hours. Is a therapeutic dose of Lovenox. On and off she still requiring pressors as his blood pressure is partly but especially when she goes to sleep . She is producing adequate amount of urine output. She is on normal saline with 0.9 at the rate of 20 mL an hour. She is receiving bolus enteral feeding for nutritional support. Objective - Vital Signs Vital signs: Vital Signs Temp 99.5 F 02/07/20 04:00 Pulse 89 02/07/20 08:00 Resp 25 H 02/07/20 08:00 BP 111/66 02/07/20 05:00 Pulse Ox 89 L 02/07/20 08:00 Intake & Output 02/06/20 02/07/20 02/07/20 18:59 06:59 18:59 Intake Total 984 548.226 Output Total 1870 500 Balance -886 48.226 Weight 89.2 kg 91.6 kg Intake: IV 374 230 .9 @ KVO 240 200 Potassium Chloride 20 meq 100 In Water For Injection 1 100ml.bag @ 50 mls/hr IVPB Q2H [facility] Rx#: [id number] pressure bags 34 30 Intake, IV Titration 138.226 Amount Norepinephrine 4 mg In 138.226 Sodium Chloride 0.9% 250 ml @ 0.05 MCG/KG/MIN 16. 231 mls/hr IV .[id number] AN[facility] Rx#:[id number] Tube Feeding 490 150 Other 120 30 Output: Urine 1270 500 Stool 600 Other: Voiding Method Indwelling Catheter Indwelling Catheter # Voids 2 ABP, PAP, CO, CI - Last Documented Arterial Blood Pressure 122/56 - Exam GENERAL EXAM: Alert, very pleasant 79-year-old female patient which is currently on a mechanical ventilator. Patient is a tracheostomy tube in place. The pat ient is being mechanically ventilated with a tracheostomy tube. She is awake. She opens up her eyes. She tries to get out of bed at times. Betamethasone Precedex for synchrony with the mechanical ventilator and her agitation. HEAD: Normocephalic. EYES: Normal reaction of pupils, equal size. NOSE: Clear with pink turbinates. THROAT: No erythema or exudates. NECK: No masses, no JVD. A subclavian catheter was established on the right side. on the right side.CHEST: No chest wall deformity. LUNGS: Equal air entry with scattered rhonchi., The patient is crackles lung bases bilaterally. CVS: S1 and S2 normal with no audible murmur, irregular rhythm. ABDOMEN: No hepatosplenomegaly, normal bowel sounds, no guarding or rigidity. SPINE: No scoliosis or deformity SKIN: No rashes CENTRAL NERVOUS SYSTEM: the patient is currently awake this morning. She is following some simple commands. She seems to be quite EXTREMITIES: There is there is improvement in peripheral edema bilaterally. No clubbing, no cyanosis. Peripheral pulses are intact. - Labs CBC & Chem 7: 02/07/20 05:15 02/07/20 06:00 Labs: Abnormal Lab Results - Last 24 Hours (Table) 02/06/20 02/06/20 02/06/20 Range/Units 04:45 11:40 18:12 RBC (3.80-5.40) m/uL Hgb (11.4-16.0) gm/dL Hct (34.0-46.0) % RDW (11.5-15.5) % D-Dimer (<0.60) mg/L FEU ABG pH (7.35-7.45) ABG pO2 (83-108) mmHg ABG HCO3 (21-25) mmol/L ABG Total CO2 (19-24) mmol/L Potassium (3.5-5.1) mmol/L Carbon Dioxide (22-30) mmol/L BUN (7-17) mg/dL Glucose (74-99) mg/dL POC Glucose (mg/dL) 121 H 187 H (75-99) mg/dL Calcium (8.4-10.2) mg/dL Ferritin 479.5 H (10.0-291.0) ng/mL C-Reactive Protein (<10.0) mg/L Total Protein (6.3-8.2) g/dL Albumin (3.5-5.0) g/dL 02/06/20 02/06/20 02/06/20 Range/Units 18:14 20:26 23:19 RBC (3.80-5.40) m/uL Hgb (11.4-16.0) gm/dL Hct (34.0-46.0) % RDW (11.5-15.5) % D-Dimer (<0.60) mg/L FEU ABG pH (7.35-7.45) ABG pO2 (83-108) mmHg ABG HCO3 (21-25) mmol/L ABG Total CO2 (19-24) mmol/L Potassium 3.3 L (3.5-5.1) mmol/L Carbon Dioxide (22-30) mmol/L BUN (7-17) mg/dL Glucose (74-99) mg/dL POC Glucose (mg/dL) 131 H 140 H (75-99) mg/dL Calcium (8.4-10.2) mg/dL Ferritin (10.0-291.0) ng/mL C-Reactive Protein (<10.0) mg/L Total Protein (6.3-8.2) g/dL Albumin (3.5-5.0) g/dL 02/07/20 02/07/20 02/07/20 Range/Units 00:43 04:58 05:15 RBC 2.29 L (3.80-5.40) m/uL Hgb 7.1 L (11.4-16.0) gm/dL Hct 22.2 L (34.0-46.0) % RDW 17.0 H (11.5-15.5) % D-Dimer (<0.60) mg/L FEU ABG pH (7.35-7.45) ABG pO2 (83-108) mmHg ABG HCO3 (21-25) mmol/L ABG Total CO2 (19-24) mmol/L Potassium (3.5-5.1) mmol/L Carbon Dioxide (22-30) mmol/L BUN (7-17) mg/dL Glucose (74-99) mg/dL POC Glucose (mg/dL) 189 H 155 H (75-99) mg/dL Calcium (8.4-10.2) mg/dL Ferritin (10.0-291.0) ng/mL C-Reactive Protein (<10.0) mg/L Total Protein (6.3-8.2) g/dL Albumin (3.5-5.0) g/dL 02/07/20 02/07/20 02/07/20 Range/Units 05:15 05:30 06:00 RBC (3.80-5.40) m/uL Hgb (11.4-16.0) gm/dL Hct (34.0-46.0) % RDW (11.5-15.5) % D-Dimer 1.40 H (<0.60) mg/L FEU ABG pH 7.55 H (7.35-7.45) ABG pO2 62 L (83-108) mmHg ABG HCO3 36 H (21-25) mmol/L ABG Total CO2 37 H (19-24) mmol/L Potassium (3.5-5.1) mmol/L Carbon Dioxide 36 H (22-30) mmol/L BUN 32 H (7-17) mg/dL Glucose 141 H (74-99) mg/dL POC Glucose (mg/dL) (75-99) mg/dL Calcium 8.0 L (8.4-10.2) mg/dL Ferritin (10.0-291.0) ng/mL C-Reactive Protein 161.5 H (<10.0) mg/L Total Protein 4.5 L (6.3-8.2) g/dL Albumin 2.0 L (3.5-5.0) g/dL Assessment and Plan Plan: 1 acute hypoxic respiratory failure predominantly secondary to Covid 19 related pneumonia and there is also some contribution to her hypoxemia because of the pulmonary embolism. The predominant factor contributing to respiratory failure is Covid 19 related pneumonia as the patient developed diffuse breath and pulmonary infiltrates with progressive hypoxemia despite ongoing treatment. The patient was intubated on 01/16/2020 and the patient currently remains intubated sedated on a mechanical ventilator. Blood gases was noted. the patient has a tracheostomy tube in place for now. Chest x-ray remains unchanged and the patient continues to have diffuse but the pulmonary infiltrates. Nevertheless, the patient is adequately oxygenating at this point in time. 2 acute right-sided pulmonary embolism, probably related to Covid 19 related hypercoagulability.The patient is currently on Lovenox therapeutic dose, 90 mg subcu every 12 hours. 3 Covid 19 related pneumonia 4 recurrent atrial fibrillation with rapid response. The patient is on Metoprolol and amiodarone. Patient is already and anticoagulation. she is on therapeutic dose of Lovenox 90 mg every 12 hours. 5 hypotension, recovered, continues to have labile blood pressure, the patient is being managed with low-dose norepinephrine infusion on and off as needed for episodic hypotension. 6 remote history of DVT and the patient was taken Xarelto on outpatient basis 7 hypertension 8 acute kidney injury, recovered and the renal function improved and normalized 9 Chronic anemia, multifactorial. plan continue ventilator support Lasix 40 mg once a day daily enteral feeding for nutritional support. The patient is currently receiving bolus feedings Continue mechanical ventilation with a VC plus mode at the rate of 14, tidal volume of 400 and FiO2 of 45% with a PEEP of 5 Completed 10 days course of Decadron 6 mg , completed the course of Remdesivir per protocol in addition to the rest of the supplements including vitamin C, vitamin D, melatonin, Pepcid and zinc The patient received a unit of convalescent plasma. Lovenox therapeutic dose of 90 mg every 12 hours. Cardiac rhythm is atrial fibrillation /sinus and the patient is on Metoprolol and amiodarone. Utilize Precedex for agitation and restlessness. She is on a low dose of Precedex for now. [facility] and she may be possibly transferred to their facility by Sunday critically care evaluation was done and more than 30 minutes. Time with Patient: Greater than 30
[2020-02-07] MEDS: NOREPINEPHRINE 4 MG in SODIUM CHLORIDE 0.9% 250 ML IV SCH (10:00)
--- NOTE | 2020-02-07 11:07 | P.PN ---
Subjective Progress Note Date: 02/07/20 No new complaints today. Labile BPs overnight warranting levophed. Otherwise, has been off of sedation for > 24 hours. Objective - Vital Signs Vital signs: Vital Signs Temp 99.5 F 02/07/20 04:00 Pulse 71 02/07/20 10:00 Resp 30 H 02/07/20 10:00 BP 111/66 02/07/20 05:00 Pulse Ox 90 L 02/07/20 10:00 Intake & Output 02/06/20 02/07/20 02/07/20 18:59 06:59 18:59 Intake Total 984 548.226 226 Output Total 1870 500 75 Balance -886 48.226 151 Weight 89.2 kg 91.6 kg Intake: IV 374 230 46 .9 @ KVO 240 200 40 Potassium Chloride 20 meq 100 In Water For Injection 1 100ml.bag @ 50 mls/hr IVPB Q2H [facility] Rx#: [id number] pressure bags 34 30 6 Intake, IV Titration 138.226 Amount Norepinephrine 4 mg In 138.226 Sodium Chloride 0.9% 250 ml @ 0.05 MCG/KG/MIN 16. 231 mls/hr IV .[id number] [facility] Rx#:[id number] Tube Feeding 490 150 150 Other 120 30 30 Output: Urine 1270 500 75 Stool 600 Other: Voiding Method Indwelling Catheter Indwelling Catheter Indwelling Catheter # Voids 2 ABP, PAP, CO, CI - Last Documented Arterial Blood Pressure 102/49 - Exam Gen: awake, alert HEENT: normocephalic, atraumatic, good hearing acuity, moist mucous membranes Resp: Vented via trach, tidal volume 400, FiO2 50%, PEEP 5, respiratory rate 16 CVS: good distal perfusion x 4, RRR, no murmurs, clicks, gallops GI: soft, NTTP, ND, +PEG : no SPT, no CVAT, stanton catheter is present MSK: no pitting edema, no clubbing Neuro: non-focal, no sensory deficits, appropriate tone - Labs CBC & Chem 7: 02/07/20 05:15 02/07/20 06:00 Labs: Abnormal Lab Results - Last 24 Hours (Table) 02/06/20 02/06/20 02/06/20 Range/Units 11:40 18:12 18:14 RBC (3.80-5.40) m/uL Hgb (11.4-16.0) gm/dL Hct (34.0-46.0) % RDW (11.5-15.5) % D-Dimer (<0.60) mg/L FEU ABG pH (7.35-7.45) ABG pO2 (83-108) mmHg ABG HCO3 (21-25) mmol/L ABG Total CO2 (19-24) mmol/L Potassium 3.3 L (3.5-5.1) mmol/L Carbon Dioxide (22-30) mmol/L BUN (7-17) mg/dL Glucose (74-99) mg/dL POC Glucose (mg/dL) 121 H 187 H (75-99) mg/dL Calcium (8.4-10.2) mg/dL C-Reactive Protein (<10.0) mg/L Total Protein (6.3-8.2) g/dL Albumin (3.5-5.0) g/dL 02/06/20 02/06/20 02/07/20 Range/Units 20:26 23:19 00:43 RBC (3.80-5.40) m/uL Hgb (11.4-16.0) gm/dL Hct (34.0-46.0) % RDW (11.5-15.5) % D-Dimer (<0.60) mg/L FEU ABG pH (7.35-7.45) ABG pO2 (83-108) mmHg ABG HCO3 (21-25) mmol/L ABG Total CO2 (19-24) mmol/L Potassium (3.5-5.1) mmol/L Carbon Dioxide (22-30) mmol/L BUN (7-17) mg/dL Glucose (74-99) mg/dL POC Glucose (mg/dL) 131 H 140 H 189 H (75-99) mg/dL Calcium (8.4-10.2) mg/dL C-Reactive Protein (<10.0) mg/L Total Protein (6.3-8.2) g/dL Albumin (3.5-5.0) g/dL 02/07/20 02/07/20 02/07/20 Range/Units 04:58 05:15 05:15 RBC 2.29 L (3.80-5.40) m/uL Hgb 7.1 L (11.4-16.0) gm/dL Hct 22.2 L (34.0-46.0) % RDW 17.0 H (11.5-15.5) % D-Dimer 1.40 H (<0.60) mg/L FEU ABG pH (7.35-7.45) ABG pO2 (83-108) mmHg ABG HCO3 (21-25) mmol/L ABG Total CO2 (19-24) mmol/L Potassium (3.5-5.1) mmol/L Carbon Dioxide (22-30) mmol/L BUN (7-17) mg/dL Glucose (74-99) mg/dL POC Glucose (mg/dL) 155 H (75-99) mg/dL Calcium (8.4-10.2) mg/dL C-Reactive Protein (<10.0) mg/L Total Protein (6.3-8.2) g/dL Albumin (3.5-5.0) g/dL 02/07/20 02/07/20 Range/Units 05:30 06:00 RBC (3.80-5.40) m/uL Hgb (11.4-16.0) gm/dL Hct (34.0-46.0) % RDW (11.5-15.5) % D-Dimer (<0.60) mg/L FEU ABG pH 7.55 H (7.35-7.45) ABG pO2 62 L (83-108) mmHg ABG HCO3 36 H (21-25) mmol/L ABG Total CO2 37 H (19-24) mmol/L Potassium (3.5-5.1) mmol/L Carbon Dioxide 36 H (22-30) mmol/L BUN 32 H (7-17) mg/dL Glucose 141 H (74-99) mg/dL POC Glucose (mg/dL) (75-99) mg/dL Calcium 8.0 L (8.4-10.2) mg/dL C-Reactive Protein 161.5 H (<10.0) mg/L Total Protein 4.5 L (6.3-8.2) g/dL Albumin 2.0 L (3.5-5.0) g/dL Assessment and Plan Assessment: 1. Acute Hypoxemic Respiratory Failure secondary to ARDS 2. ARDS secondary to COVID-19 3. Bicytopenia: Anemia/Thrombocytopenia 4. Anasarca 5. Pulmonary Embolism without cor pulmonale, History of DVT 6. Paroxysmal Atrial Fibrillation with RVR 7. Enterococcus and E. coli Complicated UTI 79 year old woman with history of HTN, DVT presented with dyspnea and found to have acute hypoxemic respiratory failure secondary to COVID-19 positive status as well as pulmonary embolism discovered on admission. She was discovered to be in A Fib with RVR while on the selective unit, and was ultimately controlled with metoprolol and amiodarone. She developed ARDS during her hospitalization, and ultimately required mechanical ventilation. She was intubated on 01/15, and since that time has not been able to be weaned. Covid 19 pneumonia with acute hypoxic respiratory failure, ARDS - Failing weaning trials, now with trach/peg 02/03 - Completed Remdesivir on 01/15 - s/p Dexamethasone day #17 days completed - Status post convalescent plasma 01/14 - Continue zinc, vitamin C, vitamin D, Pepcid, and melatonin Labile Blood Pressure - AM cortisol does not indicate adrenal insufficiency - unclear etiology Anemia, undetermined cause, thrombocytopenia, likely reactive - 1 unit pRBC 01/25/2020 - Stable now - suspect due to slow leak from TLC site. - Lovenox. dose adjusted by pulm for bleeding - Pulm wants to hold off transfusion at this point DIffuse Anasarca - Lasix X 1 given 01/22, repeated 01/25 Pulmonary embolus without right ventricular strain, history of prior DVT - Lovenox P. A fib with RVR - lovenox, amio - now in NSR Entercoccus and E coli UTI -Status post treatment with Levaquin, stop date 01/31 Thrombocytopenia KALYAN due to ATN with resultant metabolic acidosis and hyperphosphatemia, resolved Septic shock, resolved Hypokalemia, resolved DVT prophylaxis: Lovenox for PE Discussed with: Nursing, ICU team Anticipated discharge: 3-[address]: [facility]
[2020-02-07 11:20] LABS: Glucose,Whole Blood 116 mg/dL (75-99)
--- NOTE | 2020-02-07 12:07 | P.PN ---
Progress Note - Text Progress Note Date: 02/07/20 Patient remained stable. Her tracheostomy site is clean. PEG site is clean. She is tolerating tube feeds.
--- NOTE | 2020-02-07 12:41 | XR ---
EXAMINATION TYPE: XR chest 1V portable DATE OF EXAM: 02/07/2020 COMPARISON: 02/06/2020 INDICATION: Short of breath TECHNIQUE: Single frontal view of the chest is obtained. FINDINGS: The heart size is normal. The pulmonary vasculature is normal. Patchy infiltrates are present bilaterally. Findings are similar to prior. Tracheostomy tube is in the midline with tip above the ollie IMPRESSION: 1. Stable patchy bilateral lung infiltrates. Continued follow-up is recommended
[2020-02-07] MEDS: DEXMEDETOMIDINE/0.9% NACL(PMX) 400 MCG in EMPTY BAG 1 BAG IV SCH (15:22)
[2020-02-07 16:43] LABS: LD Isoenzymes 1 29 % (19-38); LD Isoenzymes 2 36 % (30-43); LD Isoenzymes 3 18 % (16-26); LD Isoenzymes 4 9 % (3-12); LD Isoenzymes 5 8 % (3-14); Lactacte Dehydrogenase(LD) ISO 196 U/L (120-250)
[2020-02-07] MEDS: MELATONIN 5 MG TABLET PO SCH (20:49)
[2020-02-07] MEDS: INSULIN DETEMIR (LEVEMIR) 100 UNIT/ML SYR SQ SCH (20:49)
[2020-02-08 00:20] LABS: Glucose,Whole Blood 159 mg/dL (75-99)
[2020-02-08] MEDS: INSULIN ASPART (NovoLOG) 100 UNIT/ML VIAL SQ SCH ×5 (00:26→23:47)
[2020-02-08] MEDS: NOREPINEPHRINE 4 MG in SODIUM CHLORIDE 0.9% 250 ML IV SCH ×2 (00:27→09:05)
[2020-02-08] MEDS: DEXMEDETOMIDINE/0.9% NACL(PMX) 400 MCG in EMPTY BAG 1 BAG IV SCH (00:39)
[2020-02-08] MEDS: HYDROmorphone 0.5 MG/0.5 ML SYRINGE IVP PRN (04:20)
[2020-02-08 05:34] LABS: ABG Base Excess 11.7 mmol/L; ABG HCO3 34 mmol/L (21-25); ABG Oxygen Saturation 89.1 % (94-97); ABG PCO2 40 mmHg (35-45); ABG PH 7.55 (7.35-7.45); ABG TCO2 35 mmol/L (19-24); Allen Test Performed? Yes
[2020-02-08 05:42] LABS: ABG PO2 50 mmHg (83-108)
[2020-02-08 05:43] LABS: Glucose,Whole Blood 174 mg/dL (75-99)
[2020-02-08 06:00] LABS: Anisocytosis Slight; Basophils % (A) 0 %; Eosinophils # (A) 0.2 k/uL (0-0.7); Eosinophils % (A) 3 %; HCT 21.5 % (34.0-46.0); Hypochromasia Marked; Lymphocytes # (A) 0.6 k/uL (1.0-4.8); Lymphocytes % (A) 9 %; MCH 30.2 pg (25.0-35.0); MCHC 31.1 g/dL (31.0-37.0); MCV 97.2 fL (80.0-100.0); Macrocytosis Slight; Mean Platelet Volume 8.2; Monocytes # (A) 0.3 k/uL (0-1.0); Monocytes % (A) 4 %; Neutrophils # (A) 5.9 k/uL (1.3-7.7); Neutrophils % (A) 84 %; Platelet Count 287 k/uL (150-450); RBC 2.21 m/uL (3.80-5.40); RDW 16.9 % (11.5-15.5)
[2020-02-08 06:10] LABS: HGB 6.7 gm/dL (11.4-16.0)
[2020-02-08 06:34] LABS: ALT 21 U/L (4-34); AST 28 U/L (14-36); African American GFR (CKD) >90 (>60 ml/min/1.73 sqM); Albumin 1.9 g/dL (3.5-5.0); Alkaline Phosphatase 79 U/L (38-126); Anion Gap 1 mmol/L; Blood Urea Nitrogen 35 mg/dL (7-17); Calcium 7.8 mg/dL (8.4-10.2); Carbon Dioxide 34 mmol/L (22-30); Chloride 106 mmol/L (98-107); Creatine Kinase 38 U/L (30-135); Glucose 157 mg/dL (74-99); Non-African American GFR(CKD) 88 (>60 ml/min/1.73 sqM); Potassium 3.2 mmol/L (3.5-5.1); Sodium 141 mmol/L (137-145); Total Bilirubin 0.7 mg/dL (0.2-1.3); Total Protein 4.4 g/dL (6.3-8.2)
[2020-02-08 06:46] LABS: C Reactive Protein 182.4 mg/L (<10.0)
[2020-02-08] MEDS ORDERED: Potassium Replacement Protocol 1 EACH MISC MISCELLANE PRN (06:58)
[2020-02-08] MEDS: ALBUTEROL HFA INHALER INHALATION SCH ×4 (07:10→20:30)
[2020-02-08] MEDS ORDERED: CISATRACURIUM 2 MG/ML 5 ML VIAL IV ONE (08:00)
--- NOTE | 2020-02-08 08:03 | XR ---
EXAMINATION TYPE: XR chest 1V portable DATE OF EXAM: 02/08/2020 COMPARISON: 02/07/2020 INDICATION: Short of breath TECHNIQUE: Single frontal view of the chest is obtained. FINDINGS: The heart size is normal. The pulmonary vasculature is prominent. Diffuse patchy infiltrates are present bilaterally are stable from comparison. Tracheostomy tube is in the midline IMPRESSION: 1. Stable bilateral lung infiltrates
--- NOTE | 2020-02-08 08:14 | P.PN ---
Subjective Progress Note Date: 02/08/20 A 79-year-old female patient who was admitted on 01/09/2020 with COVID 19 related pneumonia and acute pulmonary embolism. I was involved in the care of her back then. I'm seeing her today in follow-up. The patient's course was noted . She had developed hypoxic respiratory failure requiring intubation mechanical ventilation was done on 01/16/2020. She has been on a mechanical ventilator since. She has not shown significant improvement. She received remdesivir and convalescent plasma. The wanted everything done including a tracheostomy and PEG tube insertion. The patient was scheduled to undergo the procedure yesterday. This was not done as the changed his mind. The patient may possibly go with comfort care measures. For now, the patient remains intubated on a mechanical ventilator. She is an assist-control mode rate of 25 and a tidal volume of 350 and FiO2 of 45% and PEEP of 10. The patient has had numerous awakening trials which she failed and the patient will weaning parameters. She is currently is sedated with propofol running at 35 g per KG per minute. The patient on enteral feeding for nutritional support with vital high protein. This is running at 40 mL an hour. She has developed a UTI and she is being treated with antibiotics. Urine cultures have shown E. coli Enterococcus faecalis. I believe this patient's family is opting towards comfort care measures with the next 24-48 hours and for that reason the PEG tube insertion a tracheostomy tube insertion has been canceled for now. The blood gases from today showed a pH of 7.44 with a pCO2 of 45 and pO2 of 78. Chest x- ray from today showing ET tube is in a good location. The patient has a PICC line in the right upper extremity. NG tube is in a good patient. There are diffuse bilateral pulmonary infiltrate with aspirin. Right more than left. today's evaluation of 02/03/2020, the patient is currently on Precedex for sedation. The drip is running at 0.7 g per KG. She is well sedated for now and she is calm and comfortable. He is on mechanical ventilator on assist control mode at the rate of 25 with a tidal volume of 650 and FiO2 of 45% and PEEP of 6. The pH is at 7.52 with a pCO2 of 41 and pO2 of 81. Chest x-ray from this morning shows adequate positioning of the atrial. NG tube is in a good location. There is still bilateral pulmonary infiltrates and possibly some effusion the lung bases. The patient remains off Decadron. The patient was given a sedation holiday yesterday. She has been weaning parameters. She underwent WEANING trials with a pressure support of 7 and a PEEP of 5 and the subsequent blood gases were adequate. Nevertheless, she was quite weak and I was has been and extubating this patient.she has taken Lovenox therapeutic doses of 90 mg subcu every 12 hours. She was started on Lasix yesterday and the fluid balance is -2.7 L over the past 24 hours. Blood work from today shows a potassium level of 3.2 to be replaced. Otherwise normal renal function. Slightly alkalotic with a serum bicarbonate 35. on today's [id number]/09/2020, the patient is off sedation. I had a lengthy conversation with the patient and I also discussed the case with and cardiothoracic surgeon at [facility]. The plan is to proceed with a tracheostomy tube ineffective insertion today. The patient me was on a mechanical ventilator. She is currently on a assist-control rate of 25 with a tidal volume of 350 and FiO2 of 45% with a PEEP of 5. The blood gases from today shows adequate oxygenation.He is at 7.59 with a pCO2 of 38 and pO2 of 65. The chest x-ray from today is unchanged compared to yesterday. There is diffuse breath and pulmonary infiltrates which remain unchanged. ET tube is in a good location. The NG tube also is in a good location. Her tube feeds are currently on hold awaiting a tracheostomy and vancomycin insertion today. Hemodynamically she is stable. She is on no pressors. She was given Lasix over the past 24 or 48 hours and the patient is a negative fluid balance of 2.7 L and 2.1 L over the past 48 hours.tthe patient is following some simple commands. She is extremely weak. She is able to wiggle her toes on command. He is also limited in her eyes. She is currently off sedation. 02/05/2020, the patient is post tracheostomy tube insertion. Also on Precedex running at 0.2 mcg/kg/h. She is arousable. She grimaces. She blinks her eyes upon demand. She is trying to move. She is profoundly weak. Unable to raise her head of the bed. She continues to be edematous in all 4 extremities. She is on a mechanical ventilator. She was on assist control of 25 with a tidal vol ume of 350 and a PEEP of 5 with a FiO2 of 45%. No significant external tracheostomy tube. The patient had a blood. That showed a pH of 7.55 with a pCO2 of 40 and pO2 of 71.6. Chest x-ray shows no interval change. The patient had a PEG tube insertion and she will be started on enteral feeding for nutritional support. No other complaints otherwise for now. She is hemodynamically stable. She is having some hypertensive reactions on and off and her blood pressure is sometimes labile which she developed also hypotension. She is currently on a minimal dose of norepinephrine infusion for blood pressure support. Her blood work from today shows a hemoglobin of 7.3. Renal function stable. Electrolytes are all stable. Albumin is at 2.1. 02/06/2020 the patient is still off sedation, and she is not following any specific commands. She opens her eyes. She gazes around. Unresponsive. She was doing some blinking upon demand yesterday and she is not doing it today. Vent settings are essentially unchanged and she is on assist control mode at the rate of 25 with a tidal volume of 350 and PEEP of 5 with an FiO2 of 45%. The pH is at 7.49 with a pCO2 of 47 and pO2 of 71. D-dimer is at 2.44. She continues to have a labile blood pressure. She is getting out his IV Lasix. Edema is improving. The patient is a negative fluid balance of 1.9 L over the past 24 hours. The hemoglobin stable at 7.6 with a white cell count of 5.3. On 02/07/2020, the patient is still on a mechanical ventilator. She is still requiring Precedex on and off to control her restlessness. She opens up her eyes. She was able to wiggle her toes and the commands. She was also able to blink when asked to do so. She does not do this consistently. She is on a mechanical ventilator on assist control mode at a rate of 25 with a tidal volume of 350 and FiO2 45% with 5. Chest x-ray sores bilateral diffuse pulmonary infiltrates. She is afebrile. Past from today showed a pH of 7.54 with a pCO2 of 41 and pO2 of 62 patient's electrolytes are all within normal limits. She doesn't want to metabolic acidosis with a bicarb level of 36. Data BUN is at 32 with a creatinine of 0.5. Her CRP level is at 161. The patient remains on Lovenox 90 mg subcu every 12 hours. Is a therapeutic dose of Lovenox. On and off she still requiring pressors as his blood pressure is partly but especially when she goes to sleep . She is producing adequate amount of urine output. She is on normal saline with 0.9 at the rate of 20 mL an hour. She is receiving bolus enteral feeding for nutritional support. On 02/10/2020, the patient's condition has been worse and she is obviously decompensated. She became progressively more restless and agitated and asynchronous mechanical ventilator. The patient started losing volumes on the mechanical ventilator and the patient also became progressively more hypoxic. At a time of my arrival, the patient was breathing in the 40s, she's was not returning her volumes back and she was also running fever. The blood gases from today showed a pH of 7.55 with a pCO2 of 40 and pO2 of 55 and this was done on a VAC plus mode with a tidal volume of 650 and a PEEP of 8 with an FiO2 of 60% and at a time of 14. The chest x-ray from today shows no major interval change comp ared to the earlier chest x-ray. The tracheostomy tube is in a good location. The patient has bilateral pulmonary infiltrates mainly in the upper lobes and in the lower lobes and these findings are essentially unchanged compared to yesterday's chest x-ray. No significant orotracheal secretions. Her temperature max was at 102.4. The patient has no triple-lumen catheter. The patient is a PICC line in the right upper extremity. She has a Qureshi catheter. She has a left radial arterial line. She is receiving bolus feeding for nutritional support. She is on Lovenox 90 mg subcu every 12 hours regarding a previous history of pulmonary embolism. She is on no pressors for now. Based on this decompensation, the patient was started back comfortable for which is running at 20 mcg/kg per minute. Morning hemoglobin down to 6.7 from 7.1. Note that the patient's has shown no signs of any GI bleeding. A unit of packed RBC was ordered for this patient. S4 mental status, the patient was taken off the sedation for approximately 48 hours. She was opening her eyes. She was grimacing. She was still not following any commands and I did not see any recovery or significant recovery in her mentation while being off sedation. Is doing some grimacing to deep painful stimulation. Objective - Vital Signs Vital signs: Vital Signs Temp 99.4 F 02/08/20 04:00 Pulse 81 02/08/20 07:00 Resp 34 H 02/08/20 07:00 BP 111/66 02/07/20 05:00 Pulse Ox 89 L 02/08/20 07:00 Intake & Output 02/07/20 02/08/20 02/08/20 18:59 06:59 18:59 Intake Total 816 908.035 23 Output Total 1115 520 70 Balance -299 388.035 -47 Weight 81.9 kg Intake: IV 276 253 23 .9 @ KVO 240 220 20 pressure bags 36 33 3 Intake, IV Titration 85.035 Amount Dexmedetomidine/0.9% NaCl 85.035 (Pmx) 400 mcg In Empty Bag 1 bag @ Titrate IV . Q0M [facility] Rx#:[id number] Tube Feeding 450 470 Other 90 100 Output: Urine 1115 520 70 Other: Voiding Method Indwelling Catheter Indwelling Catheter ABP, PAP, CO, CI - Last Documented Arterial Blood Pressure 123/53 - Exam GENERAL EXAM: Alert, very pleasant 79-year-old female patient which is currently on a mechanical ventilator. Patient is a tracheostomy tube in place. The julio ent is being mechanically ventilated with a tracheostomy tube. She is awake. She opens up her eyes. She tries to get out of bed at times. The patient is back on propofol for sedation secondary with a mechanical ventilator. HEAD: Normocephalic. EYES: Normal reaction of pupils, equal size. NOSE: Clear with pink turbinates. THROAT: No erythema or exudates. NECK: No masses, no JVD. A subclavian catheter was established on the right side. on the right side.CHEST: No chest wall deformity. LUNGS: Equal air entry with scattered rhonchi., The patient is crackles lung bases bilaterally. CVS: S1 and S2 normal with no audible murmur, irregular rhythm. ABDOMEN: No hepatosplenomegaly, normal bowel sounds, no guarding or rigidity. SPINE: No scoliosis or deformity SKIN: No rashes CENTRAL NERVOUS SYSTEM: the patient is sedated and she is not following any commands. She is unresponsive at this point in time. Currently, reactive to light. No facial asymmetry. EXTREMITIES: There is there is improvement in peripheral edema bilaterally. No clubbing, no cyanosis. Peripheral pulses are intact. The patient has a PICC line in the right upper extremity. - Labs CBC & Chem 7: 02/08/20 05:56 02/08/20 05:56 Labs: Abnormal Lab Results - Last 24 Hours (Table) 02/07/20 02/07/20 02/08/20 Range/Units 06:00 11:17 00:17 RBC (3.80-5.40) m/uL Hgb (11.4-16.0) gm/dL Hct (34.0-46.0) % RDW (11.5-15.5) % Lymphocytes # (1.0-4.8) k/uL ABG pH (7.35-7.45) ABG pO2 (83-108) mmHg ABG HCO3 (21-25) mmol/L ABG Total CO2 (19-24) mmol/L ABG O2 Saturation (94-97) % Potassium (3.5-5.1) mmol/L Carbon Dioxide 36 H (22-30) mmol/L BUN 32 H (7-17) mg/dL Glucose 141 H (74-99) mg/dL POC Glucose (mg/dL) 116 H 159 H (75-99) mg/dL Calcium 8.0 L (8.4-10.2) mg/dL Lactate Dehydrogenase (313-618) U/L C-Reactive Protein 161.5 H (<10.0) mg/L Total Protein 4.5 L (6.3-8.2) g/dL Albumin 2.0 L (3.5-5.0) g/dL 02/08/20 02/08/20 02/08/20 Range/Units 05:30 05:42 05:56 RBC 2.21 L (3.80-5.40) m/uL Hgb 6.7 L* (11.4-16.0) gm/dL Hct 21.5 L (34.0-46.0) % RDW 16.9 H (11.5-15.5) % Lymphocytes # 0.6 L (1.0-4.8) k/uL ABG pH 7.55 H (7.35-7.45) ABG pO2 50 L* (83-108) mmHg ABG HCO3 34 H (21-25) mmol/L ABG Total CO2 35 H (19-24) mmol/L ABG O2 Saturation 89.1 L (94-97) % Potassium (3.5-5.1) mmol/L Carbon Dioxide (22-30) mmol/L BUN (7-17) mg/dL Glucose (74-99) mg/dL POC Glucose (mg/dL) 174 H (75-99) mg/dL Calcium (8.4-10.2) mg/dL Lactate Dehydrogenase (313-618) U/L C-Reactive Protein (<10.0) mg/L Total Protein (6.3-8.2) g/dL Albumin (3.5-5.0) g/dL 02/08/20 02/08/20 Range/Units 05:56 05:56 RBC (3.80-5.40) m/uL Hgb (11.4-16.0) gm/dL Hct (34.0-46.0) % RDW (11.5-15.5) % Lymphocytes # (1.0-4.8) k/uL ABG pH (7.35-7.45) ABG pO2 (83-108) mmHg ABG HCO3 (21-25) mmol/L ABG Total CO2 (19-24) mmol/L ABG O2 Saturation (94-97) % Potassium 3.2 L (3.5-5.1) mmol/L Carbon Dioxide 34 H (22-30) mmol/L BUN 35 H (7-17) mg/dL Glucose 157 H (74-99) mg/dL POC Glucose (mg/dL) (75-99) mg/dL Calcium 7.8 L (8.4-10.2) mg/dL Lactate Dehydrogenase 1013 H (313-618) U/L C-Reactive Protein 182.4 H (<10.0) mg/L Total Protein 4.4 L (6.3-8.2) g/dL Albumin 1.9 L (3.5-5.0) g/dL Assessment and Plan Plan: 1 acute hypoxic respiratory failure predominantly secondary to Covid 19 related pneumonia and there is also some contribution to her hypoxemia because of the pulmonary embolism. The predominant factor contributing to respiratory failure is Covid 19 related pneumonia as the patient developed acute lung injury/ARDS post pneumonia. The patient has been on mechanical ventilator and ultimately the patient required tracheostomy tube insertion for vent support and a tracheostomy was done few days back. For now, the patient remains on a mechanical ventilator. Earlier this morning, she became quite asynchronous with a mechanical ventilator. She was febrile and hypoxic and not returning in lung volumes. As such, the patient was released sedated with propofol. She was switched to a pressure control mode of ventilation. Blood gases from today was noted. Chest x-ray from today was noted. The diffusing the patient remains unchanged. Septic workup is in progress and the patient will be kept on a pressure control mode of ventilation and follow-up blood gases is pending for now. 2 acute right-sided pulmonary embolism, probably related to Covid 19 related hypercoagulability.The patient is currently on Lovenox therapeutic dose, 90 mg subcu every 12 hours. 3 Covid 19 related pneumonia, with secondary ARDS 4 recurrent atrial fibrillation with rapid response. The patient is on Metoprolol and amiodarone. Patient is already and anticoagulation. she is on therapeutic dose of Lovenox 90 mg every 12 hours. 5 hypotension, recovered, continues to have labile blood pressure, and the patient received daily doses of Lasix 40 mg. Currently she is normotensive. 6 remote history of DVT and the patient was taken Xarelto on outpatient basis 7 hypertension 8 acute kidney injury, recovered and the renal function improved and normalized 9 Chronic anemia, multifactorial. Recent interval drop in hemoglobin down to 6.7. No signs of any acute bleed and the patient be receiving a unit of packed RBC. The patient remains on Lovenox. 10 acute febrile illness currently under investigation. Rule out underlying septic event. 11 altered mentation, without any significant recovery while being off sedation. Consider drug effect an underlying metabolic encephalopathy. plan continue ventilator support , switch this patient a pressure control mode of ventilation and the patient will be on a pressure control of 22, PEEP of 12, FiO2 of 60% and a rate of 26. Follow-up blood gases still pending. Septic Workup including blood culture, sputum culture, urine culture and cover the patient empirically with a combination of erythema vancomycin. Check pro- calcitonin level Continue Lasix Lasix 40 mg once a day daily enteral feeding for nutritional support. The patient is currently receiving bolus feedings Completed 10 days course of Decadron 6 mg , completed the course of Remdesivir per protocol in addition to the rest of the supplements including vitamin C, vitamin D, melatonin, Pepcid and zinc. The patient received a unit of convalescent plasma. Lovenox therapeutic dose of 90 mg every 12 hours. Cardiac rhythm is atrial fibrillation /sinus and the patient is on Metoprolol a nd amiodarone. Currently she is in normal sinus rhythm. The patient is back on propofol for sedation. I think should be place select specialty transfer on hold based on the above- mentioned events. critically care evaluation was done and more than 30 minutes. Time with Patient: Greater than 30
[2020-02-08] MEDS ORDERED: VANCOMYCIN IV PER PHARMACY 1 EACH MISC MISCELLANE PRN (08:21)
[2020-02-08] MEDS: POTASSIUM BICARBONATE/CIT AC 20 MEQ TABLET.EFF NG-TUBE SCH ×4 (08:40→21:17)
[2020-02-08 08:42] LABS: ABG Base Excess 9.2 mmol/L; ABG HCO3 34 mmol/L (21-25); ABG Oxygen Saturation 90.9 % (94-97); ABG PCO2 56 mmHg (35-45); ABG PO2 62 mmHg (83-108); ABG TCO2 36 mmol/L (19-24); Allen Test Performed? Yes
[2020-02-08] MEDS ORDERED: ACETAMINOPHEN IV (For NPO) 1,000 MG in EMPTY BAG 1 BAG IVPB PRN (08:54)
[2020-02-08] MEDS ORDERED: CEFEPIME 1 GM in SODIUM CHLORIDE 0.9% 50 ML IVPB ONE (09:00)
[2020-02-08] MEDS: VANCOMYCIN 1,500 MG in SODIUM CHLORIDE 0.9% 250 ML IVPB SCH ×2 (09:18→20:29)
[2020-02-08] MEDS: ZINC SULFATE 220 MG CAP PO SCH (09:53)
[2020-02-08] MEDS: FUROSEMIDE 10 MG/ML 4 ML VIAL IV SCH (09:53)
[2020-02-08] MEDS: ENOXAPARIN 100 MG/ML SYRINGE SQ SCH ×2 (09:53→20:24)
[2020-02-08] MEDS: ASCORBIC ACID 500 MG TAB PO SCH (09:53)
[2020-02-08] MEDS: FAMOTIDINE 20 MG TAB PO SCH (09:53)
[2020-02-08] MEDS: CHOLECALCIFEROL 1,000 UNIT TAB PO SCH (09:53)
[2020-02-08] MEDS: CHLORHEXIDINE GLUCONATE 15 ML CUP MUCOUS MEM SCH ×2 (09:53→20:23)
[2020-02-08] MEDS: AMIODARONE 200 MG TAB PO SCH (09:53)
[2020-02-08] MEDS: METOPROLOL TARTRATE 50 MG TAB PO SCH ×2 (09:54→20:25)
[2020-02-08 10:18] LABS: Ferritin 486.3 ng/mL (10.0-291.0)
--- NOTE | 2020-02-08 11:29 | P.PN ---
Progress Note - Text Progress Note Date: 02/08/20 Patient's tracheostomy site is clean. PEG tube site is clean. She is receiving tube feeds at goal.
[2020-02-08 11:35] LABS: Glucose,Whole Blood 190 mg/dL (75-99)
--- NOTE | 2020-02-08 11:39 | P.PN ---
Subjective Progress Note Date: 02/08/20 Pt is back on levophed, had trouble with oxygen saturation and agitation this morning, she is now back on precedex and propofol, also had PEEP increased from 5 to 12 for saturations. She spiked a fever, and was started on vancomycin/zosyn. Cultures are pending. Overall prognosis is poor, and patient has not improved as had hoped s/p trach/peg. Ongoing goals of care conversation. Objective - Vital Signs Vital signs: Vital Signs Temp 102.4 F H 02/08/20 08:00 Pulse 88 02/08/20 09:45 Resp 36 H 02/08/20 09:45 BP 111/66 02/07/20 05:00 Pulse Ox 92 L 02/08/20 09:45 Intake & Output 02/07/20 02/08/20 02/08/20 18:59 06:59 18:59 Intake Total 816 908.035 127.450 Output Total 1115 520 70 Balance -299 388.035 57.450 Weight 81.9 kg Intake: IV 276 253 23 .9 @ KVO 240 220 20 pressure bags 36 33 3 Intake, IV Titration 85.035 104.450 Amount Dexmedetomidine/0.9% NaCl 85.035 93.89 (Pmx) 400 mcg In Empty Bag 1 bag @ Titrate IV . Q0M [facility] Rx#:[id number] Norepinephrine 4 mg In 3.517 Sodium Chloride 0.9% 250 ml @ 0.05 MCG/KG/MIN 16. 231 mls/hr IV .[id number] [facility] Rx#:[id number] propofoL 1,000 mg In 7.043 Empty Bag 1 bag @ Titrate IV .Q0M [facility] Rx#: [id number] Tube Feeding 450 470 Other 90 100 Output: Urine 1115 520 70 Other: Voiding Method Indwelling Catheter Indwelling Catheter Indwelling Catheter ABP, PAP, CO, CI - Last Documented Arterial Blood Pressure 130/62 - Exam Gen: ventilated, sedated HEENT: normocephalic, atraumatic, good hearing acuity, moist mucous membranes Resp: Vented via trach, tidal volume 400, FiO2 50%, PEEP 12, respiratory rate 26 CVS: good distal perfusion x 4, RRR, no murmurs, clicks, gallops GI: soft, NTTP, ND, +PEG : no SPT, no CVAT, stanton catheter is present MSK: no pitting edema, no clubbing Neuro: non-focal, no sensory deficits, appropriate tone - Labs CBC & Chem 7: 02/08/20 05:56 02/08/20 05:56 Labs: Abnormal Lab Results - Last 24 Hours (Table) 02/08/20 02/08/20 02/08/20 Range/Units 00:17 05:30 05:42 RBC (3.80-5.40) m/uL Hgb (11.4-16.0) gm/dL Hct (34.0-46.0) % RDW (11.5-15.5) % Lymphocytes # (1.0-4.8) k/uL ABG pH 7.55 H (7.35-7.45) ABG pCO2 (35-45) mmHg ABG pO2 50 L* (83-108) mmHg ABG HCO3 34 H (21-25) mmol/L ABG Total CO2 35 H (19-24) mmol/L ABG O2 Saturation 89.1 L (94-97) % Potassium (3.5-5.1) mmol/L Carbon Dioxide (22-30) mmol/L BUN (7-17) mg/dL Glucose (74-99) mg/dL POC Glucose (mg/dL) 159 H 174 H (75-99) mg/dL Calcium (8.4-10.2) mg/dL Ferritin (10.0-291.0) ng/mL Lactate Dehydrogenase (313-618) U/L C-Reactive Protein (<10.0) mg/L Total Protein (6.3-8.2) g/dL Albumin (3.5-5.0) g/dL 02/08/20 02/08/20 02/08/20 Range/Units 05:56 05:56 05:56 RBC 2.21 L (3.80-5.40) m/uL Hgb 6.7 L* (11.4-16.0) gm/dL Hct 21.5 L (34.0-46.0) % RDW 16.9 H (11.5-15.5) % Lymphocytes # 0.6 L (1.0-4.8) k/uL ABG pH (7.35-7.45) ABG pCO2 (35-45) mmHg ABG pO2 (83-108) mmHg ABG HCO3 (21-25) mmol/L ABG Total CO2 (19-24) mmol/L ABG O2 Saturation (94-97) % Potassium 3.2 L (3.5-5.1) mmol/L Carbon Dioxide 34 H (22-30) mmol/L BUN 35 H (7-17) mg/dL Glucose 157 H (74-99) mg/dL POC Glucose (mg/dL) (75-99) mg/dL Calcium 7.8 L (8.4-10.2) mg/dL Ferritin 486.3 H (10.0-291.0) ng/mL Lactate Dehydrogenase 1013 H (313-618) U/L C-Reactive Protein 182.4 H (<10.0) mg/L Total Protein 4.4 L (6.3-8.2) g/dL Albumin 1.9 L (3.5-5.0) g/dL 02/08/20 02/08/20 Range/Units 08:32 11:33 RBC (3.80-5.40) m/uL Hgb (11.4-16.0) gm/dL Hct (34.0-46.0) % RDW (11.5-15.5) % Lymphocytes # (1.0-4.8) k/uL ABG pH (7.35-7.45) ABG pCO2 56 H (35-45) mmHg ABG pO2 62 L (83-108) mmHg ABG HCO3 34 H (21-25) mmol/L ABG Total CO2 36 H (19-24) mmol/L ABG O2 Saturation 90.9 L (94-97) % Potassium (3.5-5.1) mmol/L Carbon Dioxide (22-30) mmol/L BUN (7-17) mg/dL Glucose (74-99) mg/dL POC Glucose (mg/dL) 190 H (75-99) mg/dL Calcium (8.4-10.2) mg/dL Ferritin (10.0-291.0) ng/mL Lactate Dehydrogenase (313-618) U/L C-Reactive Protein (<10.0) mg/L Total Protein (6.3-8.2) g/dL Albumin (3.5-5.0) g/dL Assessment and Plan Assessment: 1. Acute Hypoxemic Respiratory Failure secondary to ARDS 2. ARDS secondary to COVID-19 3. Bicytopenia: Anemia/Thrombocytopenia 4. Anasarca 5. Pulmonary Embolism without cor pulmonale, History of DVT 6. Paroxysmal Atrial Fibrillation with RVR 7. Enterococcus and E. coli Complicated UTI 79 year old woman with history of HTN, DVT presented with dyspnea and found to have acute hypoxemic respiratory failure secondary to COVID-19 positive status as well as pulmonary embolism discovered on admission. She was discovered to be in A Fib with RVR while on the selective unit, and was ultimately controlled with metoprolol and amiodarone. She developed ARDS during her hospitalization, and ultimately required mechanical ventilation. She was intubated on 01/15, and since that time has not been able to be weaned. Covid 19 pneumonia with acute hypoxic respiratory failure, ARDS - Failing weaning trials, now with trach/peg 02/03 - Completed Remdesivir on 01/15 - s/p Dexamethasone day #17 days completed - Status post convalescent plasma 01/14 - Continue zinc, vitamin C, vitamin D, Pepcid, and melatonin Labile Blood Pressure - AM cortisol does not indicate adrenal insufficiency - unclear etiology Anemia, undetermined cause, thrombocytopenia, likely reactive - 1 unit pRBC 01/25/2020 - Stable now - suspect due to slow leak from TLC site. - Lovenox. dose adjusted by pulm for bleeding - Pulm wants to hold off transfusion at this point DIffuse Anasarca - Lasix X 1 given 01/22, repeated 01/25 Pulmonary embolus without right ventricular strain, history of prior DVT - Lovenox P. A fib with RVR - lovenox, amio - now in NSR Entercoccus and E coli UTI -Status post treatment with Levaquin, stop date 01/31 Thrombocytopenia KALYAN due to ATN with resultant metabolic acidosis and hyperphosphatemia, resolved Septic shock, resolved Hypokalemia, resolved DVT prophylaxis: Lovenox for PE Discussed with: Nursing, ICU team Anticipated discharge: 3-[address]: [facility]
[2020-02-08 13:04] LABS: Ferritin 446.6 ng/mL (10.0-291.0)
[2020-02-08] MEDS ORDERED: SODIUM CHLORIDE 0.9% 1,000 ML IV ONE (16:03)
[2020-02-08] MEDS: fentaNYL (PF) 1,000 MCG in SODIUM CHLORIDE 0.9% 80 ML IV SCH (16:21)
[2020-02-08 16:35] LABS: Glucose,Whole Blood 134 mg/dL (75-99)
[2020-02-08 19:31] LABS: Anisocytosis Slight; HCT 26.7 % (34.0-46.0); HGB 8.1 gm/dL (11.4-16.0); Hypochromasia Moderate; MCH 29.4 pg (25.0-35.0); MCHC 30.5 g/dL (31.0-37.0); MCV 96.7 fL (80.0-100.0); Macrocytosis Slight; Mean Platelet Volume 9.2; Platelet Count 347 k/uL (150-450); Poikilocytosis Slight; RBC 2.76 m/uL (3.80-5.40); RDW 16.5 % (11.5-15.5); WBC 9.2 k/uL (3.8-10.6)
[2020-02-08] MEDS: INSULIN DETEMIR (LEVEMIR) 100 UNIT/ML SYR SQ SCH (20:24)
[2020-02-08] MEDS: MELATONIN 5 MG TABLET PO SCH (20:24)
[2020-02-08] MEDS: CEFEPIME 1 GM in SODIUM CHLORIDE 0.9% 50 ML IVPB SCH (20:28)
[2020-02-08 23:22] LABS: Glucose,Whole Blood 100 mg/dL (75-99)
[2020-02-09] MEDS ORDERED: SODIUM CHLORIDE 0.9% 1,000 ML IV ONE ×3 (02:41→09:35)
[2020-02-09] MEDS: NOREPINEPHRINE 4 MG in SODIUM CHLORIDE 0.9% 250 ML IV SCH ×2 (03:57→22:36)
[2020-02-09] MEDS: fentaNYL (PF) 1,000 MCG in SODIUM CHLORIDE 0.9% 80 ML IV SCH ×2 (04:03→17:09)
[2020-02-09 04:48] LABS: ALT 20 U/L (4-34); AST 21 U/L (14-36); African American GFR (CKD) >90 (>60 ml/min/1.73 sqM); Albumin 1.9 g/dL (3.5-5.0); Alkaline Phosphatase 87 U/L (38-126); Anion Gap 1 mmol/L; Blood Urea Nitrogen 34 mg/dL (7-17); Calcium 7.7 mg/dL (8.4-10.2); Carbon Dioxide 33 mmol/L (22-30); Chloride 108 mmol/L (98-107); Creatine Kinase 31 U/L (30-135); Glucose 131 mg/dL (74-99); Non-African American GFR(CKD) >90 (>60 ml/min/1.73 sqM); Potassium 3.5 mmol/L (3.5-5.1); Sodium 142 mmol/L (137-145); Total Bilirubin 0.7 mg/dL (0.2-1.3); Total Protein 4.3 g/dL (6.3-8.2)
[2020-02-09 04:51] LABS: Anisocytosis Slight; Basophils % (A) 0 %; Eosinophils # (A) 0.6 k/uL (0-0.7); Eosinophils % (A) 7 %; HCT 23.1 % (34.0-46.0); HGB 7.6 gm/dL (11.4-16.0); Hypochromasia Marked; Lymphocytes % (A) 12 %; MCH 31.6 pg (25.0-35.0); MCHC 32.7 g/dL (31.0-37.0); MCV 96.6 fL (80.0-100.0); Macrocytosis Slight; Mean Platelet Volume 7.8; Monocytes # (A) 0.3 k/uL (0-1.0); Monocytes % (A) 4 %; Neutrophils # (A) 6.1 k/uL (1.3-7.7); Neutrophils % (A) 75 %; Platelet Count 339 k/uL (150-450); Poikilocytosis Slight; RDW 16.7 % (11.5-15.5)
[2020-02-09 05:17] LABS: C Reactive Protein 227.4 mg/L (<10.0)
[2020-02-09] MEDS ORDERED: DEXTROSE 5% IN WATER 100 ML with AMIODARONE 150 MG IV ONE (05:30)
[2020-02-09] MEDS: POTASSIUM BICARBONATE/CIT AC 20 MEQ TABLET.EFF NG-TUBE SCH ×2 (05:44→06:34)
[2020-02-09 05:45] LABS: ABG Base Excess 7.8 mmol/L; ABG HCO3 32 mmol/L (21-25); ABG PCO2 48 mmHg (35-45); ABG PH 7.44 (7.35-7.45); ABG PO2 64 mmHg (83-108); ABG TCO2 34 mmol/L (19-24); Allen Test Performed? Yes
[2020-02-09] MEDS ORDERED: AMIODARONE 360 MG in DEXTROSE 5% IN WATER 200 ML IV ONE ×2 (06:00)
[2020-02-09 06:07] LABS: Glucose,Whole Blood 93 mg/dL (75-99)
[2020-02-09 06:07] LABS: Glucose,Whole Blood 183 mg/dL (75-99)
[2020-02-09] MEDS: INSULIN ASPART (NovoLOG) 100 UNIT/ML VIAL SQ SCH ×3 (06:34→17:15)
--- NOTE | 2020-02-09 07:21 | XR ---
EXAMINATION TYPE: XR chest 1V portable DATE OF EXAM: 02/09/2020 COMPARISON: NONE HISTORY: SOB, Follow Up FINDINGS: Indwelling tubes and catheters are unchanged. No change in diffuse bilateral airspace infiltrates right greater than left. Stable appearance of the cardio-mediastinal structures at this time. IMPRESSION: 1. Stable portable chest. Clinical correlation and follow up until resolution is recommended.
[2020-02-09] MEDS: ALBUTEROL HFA INHALER INHALATION SCH ×4 (08:09→19:34)
[2020-02-09] MEDS: CHLORHEXIDINE GLUCONATE 15 ML CUP MUCOUS MEM SCH ×2 (08:43→20:52)
[2020-02-09] MEDS: FAMOTIDINE 20 MG TAB PO SCH (08:43)
[2020-02-09] MEDS: CHOLECALCIFEROL 1,000 UNIT TAB PO SCH (08:44)
[2020-02-09] MEDS: ZINC SULFATE 220 MG CAP PO SCH (08:44)
[2020-02-09] MEDS: ASCORBIC ACID 500 MG TAB PO SCH (08:45)
[2020-02-09] MEDS: CEFEPIME 1 GM in SODIUM CHLORIDE 0.9% 50 ML IVPB SCH ×2 (09:26→20:54)
[2020-02-09 09:38] LABS: Ferritin 432.3 ng/mL (10.0-291.0)
[2020-02-09] MEDS: VANCOMYCIN 1,500 MG in SODIUM CHLORIDE 0.9% 250 ML IVPB SCH ×2 (09:38→20:54)
[2020-02-09] MEDS: AMIODARONE 200 MG TAB PO SCH (09:38)
[2020-02-09] MEDS: METOPROLOL TARTRATE 50 MG TAB PO SCH ×2 (09:38→20:53)
[2020-02-09] MEDS: ENOXAPARIN 100 MG/ML SYRINGE SQ SCH ×2 (10:20→20:53)
--- NOTE | 2020-02-09 10:54 | P.PN ---
Subjective Progress Note Date: 02/09/20 CHIEF COMPLAINT: Covid 19 pneumonia HISTORY OF PRESENT ILLNESS: Patient remains in the ICU and on mechanical ventilation. Patient is status post trach and PEG tube placement. Patient is currently tolerating tube feedings and is at goal. Her overall condition has worsened. She is back on sedation and has had increase in her PEEP to 12 and increase in FiO2. She has been placed back on Levophed for pressure support. She did have a temp of 100.6 yesterday. WBC is 8.0 PHYSICAL EXAM: VITAL SIGNS: Reviewed. GENERAL: Well-developed in no acute distress. HEENT: No sclera icterus. Extraocular movements grossly intact. Moist buccal mucosa. Head is atraumatic, normocephalic. Tracheostomy site clean dry and intact ABDOMEN: Soft. Nondistended. Nontender. PEG tube site clean dry and intact NEUROLOGIC: Patient is intubated and sedated ASSESSMENT: 1. Acute hypoxic respiratory failure status post tracheostomy placement 2. Severe protein calorie malnutrition status post PEG tube placement 3. Acute hypoxic respiratory failure with Covid 19 pneumonia and pulmonary embolism PLAN: -Continue tube feedings -Continue supportive care Physician Pick Up Operator note has been reviewed by physician. Signing provider agrees with the documented findings, assessment, and plan of care. Objective - Vital Signs Vital signs: Vital Signs Temp 99.0 F 02/09/20 08:00 Pulse 80 02/09/20 08:15 Resp 28 H 02/09/20 08:15 BP 81/42 02/08/20 18:01 Pulse Ox 93 L 02/09/20 08:15 Intake & Output 02/08/20 02/09/20 02/09/20 18:59 06:59 18:59 Intake Total 2440.269 1080.716 138.569 Output Total 345 383 10 Balance 2095.269 697.716 128.569 Weight 81.9 kg 82.2 kg Intake: IV 1276 309.3 56.3 .9 @ KVO 240 240 20 Amiodarone 360 mg In 33.3 33.3 Dextrose 5% in Water 200 ml @ 1 MG/MIN 33.333 mls/ hr IV .Q6H ONE Rx#: [id number] Sodium Chloride 0.9% 1, 1000 000 ml @ 999 mls/hr IV . Q1H1M ONE Rx#:[id number] pressure bags 36 36 3 Intake, IV Titration 314.269 411.416 82.269 Amount Dexmedetomidine/0.9% NaCl 93.89 (Pmx) 400 mcg In Empty Bag 1 bag @ Titrate IV . Q0M AN[facility] Rx#:[id number] Norepinephrine 4 mg In 120.379 101.766 Sodium Chloride 0.9% 250 ml @ 0.05 MCG/KG/MIN 16. 231 mls/hr IV .[id number] [facility] Rx#:[id number] fentaNYL (PF) 1,000 mcg 73.573 In Sodium Chloride 0.9% 80 ml @ Per Protocol IV . Q0M [facility] Rx#:[id number] propofoL 1,000 mg In 100.000 236.077 82.269 Empty Bag 1 bag @ Titrate IV .Q0M ANSELMO Rx#: [id number] Tube Feeding 450 300 Blood Product 310 Rc As-1 Unit 310 [id number] Other 90 60 Output: Urine 345 383 10 Other: Voiding Method Indwelling Catheter Indwelling Catheter ABP, PAP, CO, CI - Last Documented Arterial Blood Pressure 141/61 - Labs CBC & Chem 7: 02/09/20 04:10 02/09/20 04:10 Labs: Abnormal Lab Results - Last 24 Hours (Table) 02/07/20 02/08/20 02/08/20 Range/Units 06:00 08:10 08:53 RBC (3.80-5.40) m/uL Hgb (11.4-16.0) gm/dL Hct (34.0-46.0) % MCHC (31.0-37.0) g/dL RDW (11.5-15.5) % ABG pCO2 (35-45) mmHg ABG pO2 (83-108) mmHg ABG HCO3 (21-25) mmol/L ABG Total CO2 (19-24) mmol/L Potassium (3.5-5.1) mmol/L Chloride (98-107) mmol/L Carbon Dioxide (22-30) mmol/L BUN (7-17) mg/dL Creatinine (0.52-1.04) mg/dL Glucose (74-99) mg/dL POC Glucose (mg/dL) (75-99) mg/dL Calcium (8.4-10.2) mg/dL Ferritin 446.6 H (10.0-291.0) ng/mL C-Reactive Protein (<10.0) mg/L Total Protein (6.3-8.2) g/dL Albumin (3.5-5.0) g/dL Procalcitonin 0.21 H (0.02-0.09) ng/mL Crossmatch See Detail 02/08/20 02/08/20 02/08/20 Range/Units 11:33 16:30 19:20 RBC 2.76 L (3.80-5.40) m/uL Hgb 8.1 L (11.4-16.0) gm/dL Hct 26.7 L (34.0-46.0) % MCHC 30.5 L (31.0-37.0) g/dL RDW 16.5 H (11.5-15.5) % ABG pCO2 (35-45) mmHg ABG pO2 (83-108) mmHg ABG HCO3 (21-25) mmol/L ABG Total CO2 (19-24) mmol/L Potassium (3.5-5.1) mmol/L Chloride (98-107) mmol/L Carbon Dioxide (22-30) mmol/L BUN (7-17) mg/dL Creatinine (0.52-1.04) mg/dL Glucose (74-99) mg/dL POC Glucose (mg/dL) 190 H 134 H (75-99) mg/dL Calcium (8.4-10.2) mg/dL Ferritin (10.0-291.0) ng/mL C-Reactive Protein (<10.0) mg/L Total Protein (6.3-8.2) g/dL Albumin (3.5-5.0) g/dL Procalcitonin (0.02-0.09) ng/mL Crossmatch 02/08/20 02/08/20 02/09/20 Range/Units 19:20 23:20 04:10 RBC 2.40 L (3.80-5.40) m/uL Hgb 7.6 L (11.4-16.0) gm/dL Hct 23.1 L (34.0-46.0) % MCHC (31.0-37.0) g/dL RDW 16.7 H (11.5-15.5) % ABG pCO2 (35-45) mmHg ABG pO2 (83-108) mmHg ABG HCO3 (21-25) mmol/L ABG Total CO2 (19-24) mmol/L Potassium 3.1 L (3.5-5.1) mmol/L Chloride (98-107) mmol/L Carbon Dioxide (22-30) mmol/L BUN (7-17) mg/dL Creatinine (0.52-1.04) mg/dL Glucose (74-99) mg/dL POC Glucose (mg/dL) 100 H (75-99) mg/dL Calcium (8.4-10.2) mg/dL Ferritin (10.0-291.0) ng/mL C-Reactive Protein (<10.0) mg/L Total Protein (6.3-8.2) g/dL Albumin (3.5-5.0) g/dL Procalcitonin (0.02-0.09) ng/mL Crossmatch 02/09/20 02/09/20 02/09/20 Range/Units 04:10 05:43 06:05 RBC (3.80-5.40) m/uL Hgb (11.4-16.0) gm/dL Hct (34.0-46.0) % MCHC (31.0-37.0) g/dL RDW (11.5-15.5) % ABG pCO2 48 H (35-45) mmHg ABG pO2 64 L (83-108) mmHg ABG HCO3 32 H (21-25) mmol/L ABG Total CO2 34 H (19-24) mmol/L Potassium (3.5-5.1) mmol/L Chloride 108 H (98-107) mmol/L Carbon Dioxide 33 H (22-30) mmol/L BUN 34 H (7-17) mg/dL Creatinine 0.44 L (0.52-1.04) mg/dL Glucose 131 H (74-99) mg/dL POC Glucose (mg/dL) 183 H (75-99) mg/dL Calcium 7.7 L (8.4-10.2) mg/dL Ferritin 432.3 H (10.0-291.0) ng/mL C-Reactive Protein 227.4 H (<10.0) mg/L Total Protein 4.3 L (6.3-8.2) g/dL Albumin 1.9 L (3.5-5.0) g/dL Procalcitonin (0.02-0.09) ng/mL Crossmatch
[2020-02-09] MEDS: methylPREDNISolone SOD SUCCI 125 MG/2 ML VIAL IV SCH ×2 (11:32→17:06)
[2020-02-09] MEDS: FUROSEMIDE 10 MG/ML 4 ML VIAL IV SCH (11:32)
[2020-02-09 11:52] LABS: Glucose,Whole Blood 107 mg/dL (75-99)
--- NOTE | 2020-02-09 12:22 | P.PN ---
Subjective Progress Note Date: 02/09/20 Principal diagnosis: Acute hypoxic regular failure secondary to covid 19 related pneumonia. On today's evaluation of 01/12/2020, the patient is being seen in follow-up. As mentioned earlier, the patient was infected with jane virus Covid 19 and the patient had an acute Covid 19 related pneumonia with diffuse breath and pulmonary infiltrates. Subsequently, the patient had a CT angios of the chest that showed bilateral pulmonary infiltrates and groundglass opacities in add ition to pulmonary embolism involving mainly the right-sided pulmonary artery branches. Filling defect in the right pulmonary artery and segmental branches in addition to that there is a mild component of strain pattern. Nevertheless, tachycardic and short and a ejection fraction of 6065% and the patient had no enlargement of the right ventricle and there was no evidence of any pulmonary hypertension. Noted the patient oxidation is gradually gotten worse and currently the patient is on high flow oxygen at 6 L with an FiO2 of 85% and this was utilized to bring the saturation above 90%. The patient is on IV heparin with a therapeutic PTT of 58.7. Based on the acute jane virus Covid 19 i nfection, the patient had an LDH of 1455 and a CRP is at 47.9. The patient is having difficulty breathing with minimal amount of activity. Currently she is on bedrest. The patient has no pleurisy. No hemoptysis. Altered mentation. No other significant events overnight. Based on the worsening oxygenation, repeat chest x-ray was done and showed a patchy bilateral pulmonary infiltrates right more than left. No pleural effusion. The findings are essentially stable compared to yesterday's chest x-ray. On 01/18/2020, the patient remains intubated on a mechanical ventilator. This morning, the patient sedated with propofol and is calm and comfortable. Propofol is running at 50 mcg/kg per minute. The patient remained on assist control mode of ventilation. She is on a tidal volume of 451 and FiO2 of 50% with a PEEP of 12 and a rate of 14. The patient's blood gases showed a pH of 7.21 with episodes of 56 and pO2 of 126. The peak airway pressure is 30. The static airway pressure is 28. Chest x-ray remains unchanged. There is bilateral pulmonary infiltrates which remains essentially unchanged compared to yesterday. She has a triple lumen catheter. Her CVP is around 9. She did receive total of 2 L of IV fluids yesterday which both upper CVP and improved her blood pressure. She remains on a low dose norepinephrine infusion running at 0.04-respiratory KG per minute. She also has an acute kidney injury and a component of non-anion gap metabolic acidosis. Based on that, I gave her 2 A of sodium bicarbonate total of 100 mEq and the patient was also started on abicarb infusion. This improved her non-anion gap metabolic acidosis. The serum bicarb today is up to 24. Creatinine is at 1.6 with a BUN of 82. The patient meanwhile went into atrial fibrillation again with rapid ventricular response. Based on her hypotension, I opted to start the patient on amiodarone. I loaded her with a total of 150 mg of amiodarone bolus and I'm going to load completely over the next 24 hours. She is also on IV cefepime as an empiric antibiotic coverage. She is completed a course of Remdesivir ,, convalescent plasma 1 and the patient is also been on Decadron 6 mg every 24 hours. Reevaluated today on 01/26/20, patient remains in the ICU, intubated and mechanically ventilated. Ventilator settings are assist control rate of 18 tidal volume 450 FiO2 50% PEEP is 12. I did cut down the PEEP to 10 and increase the rate to 20. ABG today showed a pO2 of 98 pCO2 of 46 pH of 7.30. Patient is on IV fluid at 75 mL per hour, propofol at 40 mcg/kg/m, norepinephrine at 0.01 mcg/kg/m, amiodarone 0.5 mg per hour, patient is on Lovenox and on cefepime. Patient has a right subclavian triple-lumen catheter, and a right radial arterial line. Patient did receive 1 unit of convalescent plasma, and receivedremdesivir. Chest x-ray continues to show increase infiltrates with possibly a small left pleural effusion infiltrates are noted bilaterally., WBC count is 11.3 hemoglobin is 8.5. D-dimer is 9.45. BUN is 80 creatinine 1.29. I's are normal. LDH is 02/28/2007 and C-reactive protein is 45.6 Patient was reevaluated today on 01/20/20, remains in the ICU, remains intubated and mechanically ventilated. Ventilator settings are assist control rate of 20 tidal volume is 450 FiO2 is 50% and PEEP of 10. ABG showed a pO2 of 83 pCO2 of 40 pH of 7.37. Patient is on IV fluid at 50 mL per hour 0.9 normal saline on propofol at 40 mcg/kg/m, she is on tube feeding, and today I increased the PEEP down to 8. I plan to give the patient a weaning trial possibly with a pressure support of 8 and CPAP depending on her weaning. I have instructed that we hold propofol, assess weaning parameters, and proceed accordingly. Chest x-ray continues to show evidence of bilateral airspace disease, slight improvement compared to previous x-rays. CBC noted WBC count is 10 hemoglobin is 8.4 electrodes are normal renal profile showed a BUN of 80 creatinine of 1.05 Reevaluated today on 01/21/20, patient remains in the ICU, intubated and mechanically ventilated. Ventilator settings are assist control rate of 20 tidal volume is 450 FiO2 is 55% and PEEP is 12. Went ahead after reviewing the ABG on cut down the FiO2 to 50%. ABG showed a pO2 of 95 pCO2 of 42 pH of 7.38. Chest x-ray continues to show bilateral infiltrates, however the right side seems to be more affected than the left side. Patient remains on propofol at 40 mcg/kg/m, she is on enteral feeding, IV fluids at KVO, and remains on oral amiodarone, also remains on Lovenox. Patient was actually intubated on 01/15. Labs today showed relatively normal CBC, hemoglobin is 8.7. Electrolytes are normal except for bicarb of 21 chloride is 120 and potassium is 5.3. BUN is noted to be 80 and creatinine is 0.73. Hence her fluid was increased Reevaluated today on 01/22/20, patient remains in the ICU, intubated and mechanically ventilated. She is presently on assist control rate of 20 tidal volume is 450 FiO2 is 50% PEEP is 12. ABG showed a pO2 of 98 pCO2 of 42 pH of 7.40. Patient remains on propofol at 40 mcg/kg/m, I have recommended cutting the PEEP down to 8, Sats 50%, and I plan to give the patient hopefully today. Trial of pressure support and CPAP. Chest x-ray is basically unchanged compared to the chest x-ray yesterday, does have some infiltrates mostly in the right lung. Left lung seems to be less involved. WBC count today is 10.4 hemoglobin is 8.4, d-dimer is 4.5 to remains on therapeutic dose of Lovenox. Basic metabolic profile is normal. Patient remains on enteral feedings. Inflammatory markers are improving. Reevaluated today on 01/23/20, remains intubated and mechanically ventilated. Her assist control rate is 20 tidal volume is 450 FiO2 is 50% and PEEP is 8 ABG today showed a pO2 of 94 pCO2 of 40 pH of 7.42. Patient is on propofol at 10 mcg/kg/m, on tube feeding at goal, previously the patient failed sedation holiday, and she had to be placed on sedation and assist control mode of mechanical ventilation. Patient went into A. fib with RVR, last night, and today she is in A. fib but rate seems to be controlled. Her sodium is high today at 148, we'll try to corrected with increasing her free water intake, and we will likely awaken the patient today and possibly give her a trial of pressure support and CPAP. Chest x-ray is definitely showing some improvement in her scattered infiltrates. Compared to previous x-rays. Electrolytes were reviewed, her sodium is 148, and we'll try to corrected. Otherwise no significant abnormality on her labs WBC count is 11.2 hemoglobin is 8.4. Reevaluated today on 01/24/20, patient remains off sedation for the last 24 hours. However she remains vented, ventilator settings are assist control rate of 20 tidal volume is 450 FiO2 is 50% and PEEP of 8. ABG showed a pO2 of 91 pCO2 of 40 pH of 7.45. Patient is requiring clevidipine at 5 mg per hour. I was able to cut down her PEEP down to 5. Since her pO2 was 91. I recommended that we continue to hold sedation, however few hours later the patient became extremely agitated, had to give her Ativan, did not seem to control her agitation, and she did not seem to be appropriate, she was just agitated and thrashing coming asynchronous with the ventilator. Hence I recommended that she goes back on propofol. No chest x-ray done today. CBC showed a hemoglobin of 7.2 otherwise unremarkable. Sodium is down to 146, basic metabolic profile otherwise is normal. Patient was reevaluated today on 01/25/20. Remains in the ICU, intubated and mechanically ventilated. Her ventilator settings are assist control rate of 20 FiO2 is 70% PEEP was at 5, volume is 4. Tidal volume is 450 ABG today showed a pO2 of 87 pCO2 of 39 pH of 7.44. Yesterday patient was given a trial of weaning, however she became extremely restless and agitated. Had to be placed back on propofol, and she is now back on propofol at 10 mcg/kg/m. She is not requiring any pressors. She is on enteral feeding. And her hemoglobin today is noted to be low at 6.4, and I'm recommending a unit of packed RBCs to be transfused. She seems to be overusing blood from the site of the right subclavian triple-lumen catheter, went ahead and cut down her Lovenox to 60 mg subcu every 12 hours instead of 80 mg subcu every 12 hours. Chest x-ray, showed worsening bilateral multifocal infiltrates. And obviously the patient is not ready to be weaned again today. Hence I have increased her PEEP back to 10, and I plan to titrate her FiO2 down to 55% if possible. Discussed her condition wi th the today, and updated him on her status. Explained time that she is not ready to be weaned, and she will be kept sedated today. On 02/08/2020, the patient's condition has been worse and she is obviously decompensated. She became progressively more restless and agitated and asynchronous mechanical ventilator. The patient started losing volumes on the mechanical ventilator and the patient also became progressively more hypoxic. At a time of my arrival, the patient was breathing in the 40s, she's was not returning her volumes back and she was also running fever. The blood gases from today showed a pH of 7.55 with a pCO2 of 40 and pO2 of 55 and this was done on a VAC plus mode with a tidal volume of 650 and a PEEP of 8 with an FiO2 of 60% and at a time of 14. The chest x-ray from today shows no major interval change compared to the earlier chest x-ray. The tracheostomy tube is in a good location. The patient has bilateral pulmonary infiltrates mainly in the upper lobes and in the lower lobes and these findings are essentially unchanged compared to yesterday's chest x-ray. No significant orotracheal secretions. Her temperature max was at 102.4. The patient has no triple-lumen catheter. The patient is a PICC line in the right upper extremity. She has a Qureshi catheter. She has a left radial arterial line. She is receiving bolus feeding for nutritional support. She is on Lovenox 90 mg subcu every 12 hours regarding a previous history of pulmonary embolism. She is on no pressors for now. Based on this decompensation, the patient was started back comfortable for which is running at 20 mcg/kg per minute. Morning hemoglobin down to 6.7 from 7.1. Note that the patient's has shown no signs of any GI bleeding. A unit of packed RBC was ordered for this patient. S4 mental status, the patient was taken off the sedation for approximately 48 hours. She was opening her eyes. She was grimacing. She was still not following any commands and I did not see any recovery or significant recovery in her mentation while being off sedation. Is doing some grimacing to deep painful stimulation. Reevaluated today on 02/09/20, patient remains intubated and mechanically ventilated, she has a trach and PEG tube in place, patient underwent tracheostomy and PEG tube placement on 02/14/20, she is now on pressure control mode of mechanical ventilation, pressure is 22, rate is set at 26. Inspiratory time is 1 second. She is on 60% FiO2, she is on propofol at 55 mcg/kg/m, fentanyl 1 mcg/kg/h, and she is also on amiodarone at 1 mg drip. Patient is receiving bolus feedings. 150 ML every 4 hours, and she has free water flushes given. Remains on cefepime and vancomycin. Her urine output is marginal, hence I recommended a fluid bolus and if no improvement to be given Lasix. However the nurses changed her Qureshi, and she was able to put out at least a liter with Qureshi placement. Added Solu-Medrol 60 mg IV push every 6 hours. Chest x-ray continues to show diffuse interstitial infiltrates bilaterally. ABG today showed a pO2 of 64 pCO2 of 48 pH of 7.44 this is on FiO2 of 60%. CBC showed WBC count of 8 hemoglobin is 7.6. Basic metabolic profile is relatively normal. Pro-calcitonin is elevated at 0.32. Hence antibiotics will be continued Objective - Vital Signs Vital signs: Vital Signs Temp 99.0 F 02/09/20 08:00 Pulse 80 02/09/20 08:15 Resp 28 H 02/09/20 08:15 BP 81/42 02/08/20 18:01 Pulse Ox 93 L 02/09/20 08:15 Intake & Output 02/08/20 02/09/20 02/09/20 18:59 06:59 18:59 Intake Total 2440.269 1080.716 138.569 Output Total 345 383 10 Balance 2095.269 697.716 128.569 Weight 81.9 kg 82.2 kg Intake: IV 1276 309.3 56.3 .9 @ KVO 240 240 20 Amiodarone 360 mg In 33.3 33.3 Dextrose 5% in Water 200 ml @ 1 MG/MIN 33.333 mls/ hr IV .Q6H [facility] Rx#: [id number] Sodium Chloride 0.9% 1, 1000 000 ml @ 999 mls/hr IV . Q1H1M [facility] Rx#:[id number] pressure bags 36 36 3 Intake, IV Titration 314.269 411.416 82.269 Amount Dexmedetomidine/0.9% NaCl 93.89 (Pmx) 400 mcg In Empty Bag 1 bag @ Titrate IV . Q0M [facility] Rx#:[id number] Norepinephrine 4 mg In 120.379 101.766 Sodium Chloride 0.9% 250 ml @ 0.05 MCG/KG/MIN 16. 231 mls/hr IV .[id number] [facility] Rx#:[id number] fentaNYL (PF) 1,000 mcg 73.573 In Sodium Chloride 0.9% 80 ml @ Per Protocol IV . Q0M [facility] Rx#:[id number] propofoL 1,000 mg In 100.000 236.077 82.269 Empty Bag 1 bag @ Titrate IV .Q0M [facility] Rx#: [id number] Tube Feeding 450 300 Blood Product 310 Rc As-1 Unit 310 [id number] Other 90 60 Output: Urine 345 383 10 Other: Voiding Method Indwelling Catheter Indwelling Catheter ABP, PAP, CO, CI - Last Documented Arterial Blood Pressure 141/61 - Exam GENERAL EXAM: Revealed 79-year-old female intubated, on mechanical ventilation. HEAD: Atraumatic, normocephalic. Tracheostomy is intact. HEENT: PERRLA, EOMI, no icterus, no neck masses, no JVD, no stridor. Moist mucous membranes. .CHEST: No chest wall deformity. LUNGS: Crackles noted bilaterally more so at the right base. Symmetrical chest expansion. CVS: Irregular rhythm, no S3 gallop. ABDOMEN: No hepatosplenomegaly, normal bowel sounds, no guarding or rigidity. PEG tube is intact SPINE: No scoliosis or deformity SKIN: No rashes CENTRAL NERVOUS SYSTEM: Cannot assess, fully sedated EXTREMITIES: No clubbing, 1+ bipedal edema no cyanosis. - Labs CBC & Chem 7: 02/09/20 04:10 02/09/20 04:10 Labs: Abnormal Lab Results - Last 24 Hours (Table) 02/07/20 02/08/20 02/08/20 Range/Units 06:00 08:10 08:53 RBC (3.80-5.40) m/uL Hgb (11.4-16.0) gm/dL Hct (34.0-46.0) % MCHC (31.0-37.0) g/dL RDW (11.5-15.5) % ABG pCO2 (35-45) mmHg ABG pO2 (83-108) mmHg ABG HCO3 (21-25) mmol/L ABG Total CO2 (19-24) mmol/L Potassium (3.5-5.1) mmol/L Chloride (98-107) mmol/L Carbon Dioxide (22-30) mmol/L BUN (7-17) mg/dL Creatinine (0.52-1.04) mg/dL Glucose (74-99) mg/dL POC Glucose (mg/dL) (75-99) mg/dL Calcium (8.4-10.2) mg/dL Ferritin 446.6 H (10.0-291.0) ng/mL C-Reactive Protein (<10.0) mg/L Total Protein (6.3-8.2) g/dL Albumin (3.5-5.0) g/dL Procalcitonin 0.21 H (0.02-0.09) ng/mL Crossmatch See Detail 02/08/20 02/08/20 02/08/20 Range/Units 16:30 19:20 19:20 RBC 2.76 L (3.80-5.40) m/uL Hgb 8.1 L (11.4-16.0) gm/dL Hct 26.7 L (34.0-46.0) % MCHC 30.5 L (31.0-37.0) g/dL RDW 16.5 H (11.5-15.5) % ABG pCO2 (35-45) mmHg ABG pO2 (83-108) mmHg ABG HCO3 (21-25) mmol/L ABG Total CO2 (19-24) mmol/L Potassium 3.1 L (3.5-5.1) mmol/L Chloride (98-107) mmol/L Carbon Dioxide (22-30) mmol/L BUN (7-17) mg/dL Creatinine (0.52-1.04) mg/dL Glucose (74-99) mg/dL POC Glucose (mg/dL) 134 H (75-99) mg/dL Calcium (8.4-10.2) mg/dL Ferritin (10.0-291.0) ng/mL C-Reactive Protein (<10.0) mg/L Total Protein (6.3-8.2) g/dL Albumin (3.5-5.0) g/dL Procalcitonin (0.02-0.09) ng/mL Crossmatch 02/08/20 02/09/20 02/09/20 Range/Units 23:20 04:10 04:10 RBC 2.40 L (3.80-5.40) m/uL Hgb 7.6 L (11.4-16.0) gm/dL Hct 23.1 L (34.0-46.0) % MCHC (31.0-37.0) g/dL RDW 16.7 H (11.5-15.5) % ABG pCO2 (35-45) mmHg ABG pO2 (83-108) mmHg ABG HCO3 (21-25) mmol/L ABG Total CO2 (19-24) mmol/L Potassium (3.5-5.1) mmol/L Chloride 108 H (98-107) mmol/L Carbon Dioxide 33 H (22-30) mmol/L BUN 34 H (7-17) mg/dL Creatinine 0.44 L (0.52-1.04) mg/dL Glucose 131 H (74-99) mg/dL POC Glucose (mg/dL) 100 H (75-99) mg/dL Calcium 7.7 L (8.4-10.2) mg/dL Ferritin 432.3 H (10.0-291.0) ng/mL C-Reactive Protein 227.4 H (<10.0) mg/L Total Protein 4.3 L (6.3-8.2) g/dL Albumin 1.9 L (3.5-5.0) g/dL Procalcitonin (0.02-0.09) ng/mL Crossmatch 02/09/20 02/09/20 02/09/20 Range/Units 04:10 05:43 06:05 RBC (3.80-5.40) m/uL Hgb (11.4-16.0) gm/dL Hct (34.0-46.0) % MCHC (31.0-37.0) g/dL RDW (11.5-15.5) % ABG pCO2 48 H (35-45) mmHg ABG pO2 64 L (83-108) mmHg ABG HCO3 32 H (21-25) mmol/L ABG Total CO2 34 H (19-24) mmol/L Potassium (3.5-5.1) mmol/L Chloride (98-107) mmol/L Carbon Dioxide (22-30) mmol/L BUN (7-17) mg/dL Creatinine (0.52-1.04) mg/dL Glucose (74-99) mg/dL POC Glucose (mg/dL) 183 H (75-99) mg/dL Calcium (8.4-10.2) mg/dL Ferritin (10.0-291.0) ng/mL C-Reactive Protein (<10.0) mg/L Total Protein (6.3-8.2) g/dL Albumin (3.5-5.0) g/dL Procalcitonin 0.32 H (0.02-0.09) ng/mL Crossmatch 02/09/20 Range/Units 11:51 RBC (3.80-5.40) m/uL Hgb (11.4-16.0) gm/dL Hct (34.0-46.0) % MCHC (31.0-37.0) g/dL RDW (11.5-15.5) % ABG pCO2 (35-45) mmHg ABG pO2 (83-108) mmHg ABG HCO3 (21-25) mmol/L ABG Total CO2 (19-24) mmol/L Potassium (3.5-5.1) mmol/L Chloride (98-107) mmol/L Carbon Dioxide (22-30) mmol/L BUN (7-17) mg/dL Creatinine (0.52-1.04) mg/dL Glucose (74-99) mg/dL POC Glucose (mg/dL) 107 H (75-99) mg/dL Calcium (8.4-10.2) mg/dL Ferritin (10.0-291.0) ng/mL C-Reactive Protein (<10.0) mg/L Total Protein (6.3-8.2) g/dL Albumin (3.5-5.0) g/dL Procalcitonin (0.02-0.09) ng/mL Crossmatch Microbiology - Last 24 Hours (Table) 02/08/20 08:53 Blood Culture - Preliminary Blood No Growth after 24 hours Assessment and Plan Assessment: Impression: Acute hypoxic respiratory failure with bilateral pneumonia and ARDS. secondary to Covid 19 pneumonitis. Acute pulmonary embolism is another contributing factor to her hypoxic respiratory failure Acute right sided pulmonary embolism and hypercoagulability secondary to jane virus infection. Recurrent atrial fibrillation, maintained on amiodarone. And on anticoagulations therapy. On Lovenox. Remote history of deep vein thrombosis patient has been on Xarelto on outpatient basis. Acute kidney injury. Elevated d-dimer. Hypercoagulable state. Hypernatremia secondary to free water deficit. Suspect acute toxic metabolic encephalopathy, related to her Covid 19 infection. Chronic anemia, multifactorial. Status post tracheostomy and PEG tube placement on 02/14/20 Recommendation: Continue ventilatory support., Continue pressure control mode of mechanical ventilation. Minimize sedation as much as possible Continue nutritional support. Via PEG. Continue anticoagulation therapy./Lovenox , continue to monitor hemoglobin. Continue Covid 19 cocktail treatment. Continue amiodarone. Continue GI prophylaxis. Not quite ready for weaning Remains critically ill. Continue antibiotics, patient is on cefepime and vancomycin. Continue Solu-Medrol. Continue free water flushes Critical care time is over 30 minutes. Time with Patient: Greater than 30
--- NOTE | 2020-02-09 13:19 | P.PN ---
Subjective Progress Note Date: 02/09/20 Patient is sedated. Then sitting increases over the weekend with increased O2 requirement. Objective - Vital Signs Vital signs: Vital Signs Temp 99.0 F 02/09/20 08:00 Pulse 80 02/09/20 08:15 Resp 28 H 02/09/20 08:15 BP 81/42 02/08/20 18:01 Pulse Ox 93 L 02/09/20 08:15 Intake & Output 02/08/20 02/09/20 02/09/20 18:59 06:59 18:59 Intake Total 2440.269 4442.995 2283.069 Output Total 749 411 7809 Balance 2095.269 697.716 -14.931 Weight 81.9 kg 82.2 kg Intake: IV 1276 309.3 587.8 .9 @ KVO 240 240 120 Amiodarone 360 mg In 33.3 199.8 Dextrose 5% in Water 200 ml @ 1 MG/MIN 33.333 mls/ hr IV .Q6H [facility] Rx#: [id number] Cefepime 2 gm In Sodium 50 Chloride 0.9% 100 ml @ 25 mls/hr IVPB Q12HR [facility] Rx #:[id number] Sodium Chloride 0.9% 1, 1000 200 000 ml @ 999 mls/hr IV . Q1H1M [facility] Rx#:[id number] pressure bags 36 36 18 Intake, IV Titration 314.269 411.416 82.269 Amount Dexmedetomidine/0.9% NaCl 93.89 (Pmx) 400 mcg In Empty Bag 1 bag @ Titrate IV . Q0M [facility] Rx#:[id number] Norepinephrine 4 mg In 120.379 101.766 Sodium Chloride 0.9% 250 ml @ 0.05 MCG/KG/MIN 16. 231 mls/hr IV .[id number] [facility] Rx#:[id number] fentaNYL (PF) 1,000 mcg 73.573 In Sodium Chloride 0.9% 80 ml @ Per Protocol IV . Q0M [facility] Rx#:[id number] propofoL 1,000 mg In 100.000 236.077 82.269 Empty Bag 1 bag @ Titrate IV .Q0M [facility] Rx#: [id number] Tube Feeding 450 300 300 Blood Product 310 Rc As-1 Unit 310 [id number] Other 90 60 60 Output: Urine 638 574 0206 Other: Voiding Method Indwelling Catheter Indwelling Catheter ABP, PAP, CO, CI - Last Documented Arterial Blood Pressure 141/61 - Exam General: The patient is sedated and mechanically ventilated. Trachea in place. Eye: there is normal conjunctiva bilaterally. Cardiovascular: Normal S1-S2, no S3-S4, no murmurs. Respiratory: Lungs with mechanical ventilator sounds Gastrointestinal: Abdomen is soft, nontender. PEG tube in place Musculoskeletal: There is no pedal edema. Skin: Skin is warm and dry - Labs CBC & Chem 7: 02/09/20 04:10 02/09/20 04:10 Labs: Abnormal Lab Results - Last 24 Hours (Table) 02/08/20 02/08/20 02/08/20 Range/Units 08:10 08:53 16:30 RBC (3.80-5.40) m/uL Hgb (11.4-16.0) gm/dL Hct (34.0-46.0) % MCHC (31.0-37.0) g/dL RDW (11.5-15.5) % ABG pCO2 (35-45) mmHg ABG pO2 (83-108) mmHg ABG HCO3 (21-25) mmol/L ABG Total CO2 (19-24) mmol/L Potassium (3.5-5.1) mmol/L Chloride (98-107) mmol/L Carbon Dioxide (22-30) mmol/L BUN (7-17) mg/dL Creatinine (0.52-1.04) mg/dL Glucose (74-99) mg/dL POC Glucose (mg/dL) 134 H (75-99) mg/dL Calcium (8.4-10.2) mg/dL Ferritin (10.0-291.0) ng/mL C-Reactive Protein (<10.0) mg/L Total Protein (6.3-8.2) g/dL Albumin (3.5-5.0) g/dL Procalcitonin 0.21 H (0.02-0.09) ng/mL Crossmatch See Detail 02/08/20 02/08/20 02/08/20 Range/Units 19:20 19:20 23:20 RBC 2.76 L (3.80-5.40) m/uL Hgb 8.1 L (11.4-16.0) gm/dL Hct 26.7 L (34.0-46.0) % MCHC 30.5 L (31.0-37.0) g/dL RDW 16.5 H (11.5-15.5) % ABG pCO2 (35-45) mmHg ABG pO2 (83-108) mmHg ABG HCO3 (21-25) mmol/L ABG Total CO2 (19-24) mmol/L Potassium 3.1 L (3.5-5.1) mmol/L Chloride (98-107) mmol/L Carbon Dioxide (22-30) mmol/L BUN (7-17) mg/dL Creatinine (0.52-1.04) mg/dL Glucose (74-99) mg/dL POC Glucose (mg/dL) 100 H (75-99) mg/dL Calcium (8.4-10.2) mg/dL Ferritin (10.0-291.0) ng/mL C-Reactive Protein (<10.0) mg/L Total Protein (6.3-8.2) g/dL Albumin (3.5-5.0) g/dL Procalcitonin (0.02-0.09) ng/mL Crossmatch 02/09/20 02/09/20 02/09/20 Range/Units 04:10 04:10 04:10 RBC 2.40 L (3.80-5.40) m/uL Hgb 7.6 L (11.4-16.0) gm/dL Hct 23.1 L (34.0-46.0) % MCHC (31.0-37.0) g/dL RDW 16.7 H (11.5-15.5) % ABG pCO2 (35-45) mmHg ABG pO2 (83-108) mmHg ABG HCO3 (21-25) mmol/L ABG Total CO2 (19-24) mmol/L Potassium (3.5-5.1) mmol/L Chloride 108 H (98-107) mmol/L Carbon Dioxide 33 H (22-30) mmol/L BUN 34 H (7-17) mg/dL Creatinine 0.44 L (0.52-1.04) mg/dL Glucose 131 H (74-99) mg/dL POC Glucose (mg/dL) (75-99) mg/dL Calcium 7.7 L (8.4-10.2) mg/dL Ferritin 432.3 H (10.0-291.0) ng/mL C-Reactive Protein 227.4 H (<10.0) mg/L Total Protein 4.3 L (6.3-8.2) g/dL Albumin 1.9 L (3.5-5.0) g/dL Procalcitonin 0.32 H (0.02-0.09) ng/mL Crossmatch 02/09/20 02/09/20 02/09/20 Range/Units 05:43 06:05 11:51 RBC (3.80-5.40) m/uL Hgb (11.4-16.0) gm/dL Hct (34.0-46.0) % MCHC (31.0-37.0) g/dL RDW (11.5-15.5) % ABG pCO2 48 H (35-45) mmHg ABG pO2 64 L (83-108) mmHg ABG HCO3 32 H (21-25) mmol/L ABG Total CO2 34 H (19-24) mmol/L Potassium (3.5-5.1) mmol/L Chloride (98-107) mmol/L Carbon Dioxide (22-30) mmol/L BUN (7-17) mg/dL Creatinine (0.52-1.04) mg/dL Glucose (74-99) mg/dL POC Glucose (mg/dL) 183 H 107 H (75-99) mg/dL Calcium (8.4-10.2) mg/dL Ferritin (10.0-291.0) ng/mL C-Reactive Protein (<10.0) mg/L Total Protein (6.3-8.2) g/dL Albumin (3.5-5.0) g/dL Procalcitonin (0.02-0.09) ng/mL Crossmatch Microbiology - Last 24 Hours (Table) 02/08/20 08:53 Blood Culture - Preliminary Blood No Growth after 24 hours Assessment and Plan Assessment: 79 year old woman with history of HTN, DVT presented with dyspnea and found to have acute hypoxemic respiratory failure secondary to COVID-19 positive status as well as pulmonary embolism discovered on admission. She was found to be in A Fib with RVR and was ultimately controlled with metoprolol and amiodarone. She developed ARDS during her hospitalization, and ultimately required mechanical ventilation. She was intubated on 01/15, and since that time has not been able to be weaned. 1. Acute Hypoxemic Respiratory Failure secondary to ARDS 2. ARDS secondary to COVID-19 3. Bicytopenia: Anemia/Thrombocytopenia 4. Anasarca 5. Pulmonary Embolism without cor pulmonale, History of DVT 6. Paroxysmal Atrial Fibrillation with RVR 7. Enterococcus and E. coli Complicated UTI Covid 19 pneumonia with acute hypoxic respiratory failure, ARDS - Failing weaning trials, now with trach/peg 02/03 - Completed Remdesivir on 01/15 - s/p Dexamethasone day #17 days completed - Status post convalescent plasma 01/14 - Continue zinc, vitamin C, vitamin D, Pepcid, and melatonin Labile Blood Pressure, currently on vasopressors - AM cortisol does not indicate adrenal insufficiency - unclear etiology Anemia, undetermined cause, thrombocytopenia, likely reactive - 2 units pRBC since admission DIffuse Anasarca - IV Lasix managed by ICU team Pulmonary embolus without right ventricular strain, history of prior DVT - Lovenox P. A fib with RVR - lovenox, amio - Cardiology following Entercoccus and E coli UTI -Status post treatment with Levaquin, stop date 01/31 Thrombocytopenia KALYAN due to ATN with resultant metabolic acidosis and hyperphosphatemia, resolved Septic shock, resolved Hypokalemia, resolved DVT prophylaxis: Lovenox for PE Discussed with: Nursing, ICU team Anticipated discharge: 3-[address]: [facility]
[2020-02-09] MEDS: AMIODARONE 300 MG in DEXTROSE 5% IN WATER 250 ML IV SCH ×2 (14:58)
[2020-02-09 17:13] LABS: Glucose,Whole Blood 163 mg/dL (75-99)
[2020-02-09] MEDS: MELATONIN 5 MG TABLET PO SCH (20:53)
[2020-02-09] MEDS: INSULIN DETEMIR (LEVEMIR) 100 UNIT/ML SYR SQ SCH (20:55)
[2020-02-10 00:03] LABS: Glucose,Whole Blood 167 mg/dL (75-99)
[2020-02-10] MEDS: methylPREDNISolone SOD SUCCI 125 MG/2 ML VIAL IV SCH ×5 (00:15→23:31)
[2020-02-10] MEDS: INSULIN ASPART (NovoLOG) 100 UNIT/ML VIAL SQ SCH ×5 (00:16→23:31)
[2020-02-10] MEDS: fentaNYL (PF) 1,000 MCG in SODIUM CHLORIDE 0.9% 80 ML IV SCH ×3 (00:22→22:30)
[2020-02-10] MEDS: AMIODARONE 300 MG in DEXTROSE 5% IN WATER 250 ML IV SCH ×2 (00:23)
[2020-02-10] MEDS: NOREPINEPHRINE 4 MG in SODIUM CHLORIDE 0.9% 250 ML IV SCH ×2 (04:00→10:55)
[2020-02-10 04:52] LABS: ABG Base Excess 6.8 mmol/L; ABG HCO3 31 mmol/L (21-25); ABG Oxygen Saturation 94.7 % (94-97); ABG PCO2 48 mmHg (35-45); ABG PH 7.42 (7.35-7.45); ABG PO2 67 mmHg (83-108); ABG TCO2 33 mmol/L (19-24); Allen Test Performed? Yes
[2020-02-10 05:16] LABS: Anisocytosis Slight; Basophils % (A) 0 %; Eosinophils % (A) 0 %; HCT 25.3 % (34.0-46.0); Hypochromasia Marked; Lymphocytes # (A) 0.6 k/uL (1.0-4.8); Lymphocytes % (A) 9 %; MCH 30.9 pg (25.0-35.0); MCHC 31.5 g/dL (31.0-37.0); Macrocytosis Slight; Mean Platelet Volume 8.2; Monocytes # (A) 0.3 k/uL (0-1.0); Monocytes % (A) 5 %; Neutrophils # (A) 6.1 k/uL (1.3-7.7); Neutrophils % (A) 86 %; Platelet Count 369 k/uL (150-450); Poikilocytosis Slight; RBC 2.58 m/uL (3.80-5.40); RDW 16.3 % (11.5-15.5); WBC 7.1 k/uL (3.8-10.6)
[2020-02-10 05:30] LABS: D-Dimer 3.04 mg/L FEU (<0.60)
[2020-02-10 05:33] LABS: ALT 17 U/L (4-34); AST 15 U/L (14-36); African American GFR (CKD) >90 (>60 ml/min/1.73 sqM); Albumin 1.9 g/dL (3.5-5.0); Alkaline Phosphatase 92 U/L (38-126); Anion Gap 0 mmol/L; Blood Urea Nitrogen 34 mg/dL (7-17); Calcium 7.9 mg/dL (8.4-10.2); Carbon Dioxide 33 mmol/L (22-30); Chloride 107 mmol/L (98-107); Glucose 173 mg/dL (74-99); Non-African American GFR(CKD) >90 (>60 ml/min/1.73 sqM); Potassium 3.5 mmol/L (3.5-5.1); Sodium 140 mmol/L (137-145); Total Bilirubin 0.5 mg/dL (0.2-1.3); Total Protein 4.4 g/dL (6.3-8.2)
[2020-02-10 06:09] LABS: Glucose,Whole Blood 207 mg/dL (75-99)
[2020-02-10] MEDS ORDERED: Potassium Replacement Protocol 1 EACH MISC MISCELLANE PRN ×2 (06:14→15:02)
[2020-02-10] MEDS: POTASSIUM BICARBONATE/CIT AC 20 MEQ TABLET.EFF NG-TUBE SCH ×2 (06:30→06:31)
[2020-02-10] MEDS ORDERED: VANCOMYCIN TROUGH DUE 1 EACH MISC MISCELLANE ONE (08:00)
[2020-02-10] MEDS: ALBUTEROL HFA INHALER INHALATION SCH ×4 (08:36→20:42)
[2020-02-10] MEDS: FUROSEMIDE 10 MG/ML 4 ML VIAL IV SCH (08:59)
[2020-02-10] MEDS: ENOXAPARIN 100 MG/ML SYRINGE SQ SCH ×2 (08:59→21:48)
[2020-02-10] MEDS: CHLORHEXIDINE GLUCONATE 15 ML CUP MUCOUS MEM SCH ×2 (08:59→21:48)
[2020-02-10] MEDS: ZINC SULFATE 220 MG CAP PO SCH (09:00)
[2020-02-10] MEDS: CHOLECALCIFEROL 1,000 UNIT TAB PO SCH (09:00)
[2020-02-10] MEDS: FAMOTIDINE 20 MG TAB PO SCH (09:00)
[2020-02-10] MEDS: METOPROLOL TARTRATE 50 MG TAB PO SCH ×2 (09:00→21:48)
[2020-02-10] MEDS: ASCORBIC ACID 500 MG TAB PO SCH (09:00)
[2020-02-10] MEDS: AMIODARONE 200 MG TAB PO SCH (09:00)
[2020-02-10] MEDS: CEFEPIME 1 GM in SODIUM CHLORIDE 0.9% 50 ML IVPB SCH ×2 (09:22→21:50)
[2020-02-10 10:15] LABS: Ferritin 438.7 ng/mL (10.0-291.0)
--- NOTE | 2020-02-10 10:18 | XR ---
EXAMINATION TYPE: XR chest 1V DATE OF EXAM: 02/10/2020 COMPARISON: 02/09/2020 INDICATION: Short of breath TECHNIQUE: Single frontal view of the chest is obtained. FINDINGS: The heart size is normal. The pulmonary vasculature is normal. Diffuse increased lung markings are bilaterally. This is improving on the right. Tracheostomy tube is present. IMPRESSION: 1. Slight improvement of bilateral lung infiltrates.
--- NOTE | 2020-02-10 10:29 | P.PN ---
Subjective Progress Note Date: 02/10/20 Patient is sedated. No acute events overnight reported by nursing staff Objective - Vital Signs Vital signs: Vital Signs Temp 98.2 F 02/10/20 08:00 Pulse 61 02/10/20 09:00 Resp 26 H 02/10/20 09:00 BP 111/66 02/10/20 09:00 Pulse Ox 93 L 02/10/20 09:00 Intake & Output 02/09/20 02/10/20 02/10/20 18:59 06:59 18:59 Intake Total 2259.674 5978.643 579.598 Output Total 3045 547 95 Balance -3791.748 9124.643 484.598 Weight 81 kg Intake: IV 850.8 896 69 .9 @ KVO 240 160 60 Amiodarone 300 mg In 125 225 Dextrose 5% in Water 250 ml @ 0.5 MG/MIN 25 mls/hr IV .Q10H [facility] Rx#: [id number] Amiodarone 360 mg In 199.8 Dextrose 5% in Water 200 ml @ 1 MG/MIN 33.333 mls/ hr IV .Q6H [facility] Rx#: [id number] Cefepime 1 gm In Sodium 0 Chloride 0.9% 50 ml @ 12. 5 mls/hr IVPB Q12HR [facility] Rx#:[id number] Cefepime 2 gm In Sodium 100 Chloride 0.9% 100 ml @ 25 mls/hr IVPB Q12HR [facility] Rx #:[id number] Cefepime 2 gm In Sodium 50 100 Chloride 0.9% 100 ml @ 25 mls/hr IVPB Q12HR [facility] Rx #:[id number] Sodium Chloride 0.9% 1, 200 000 ml @ 999 mls/hr IV . Q1H1M [facility] Rx#:[id number] Vancomycin 1,500 mg In 275 Sodium Chloride 0.9% 250 ml @ 125 mls/hr IVPB Q12H [facility] Rx#:[id number] pressure bags 36 36 9 Intake, IV Titration 401.219 426.643 310.598 Amount Amiodarone 300 mg In 235.417 225 Dextrose 5% in Water 250 ml @ 0.5 MG/MIN 25 mls/hr IV .Q10H [facility] Rx#: [id number] Cefepime 1 gm In Sodium 50 Chloride 0.9% 50 ml @ 12. 5 mls/hr IVPB Q12HR [facility] Rx#:[id number] Norepinephrine 4 mg In 178 46.147 35.598 Sodium Chloride 0.9% 250 ml @ 0.05 MCG/KG/MIN 16. 231 mls/hr IV .[id number] [facility] Rx#:[id number] fentaNYL (PF) 1,000 mcg 87.633 59.105 In Sodium Chloride 0.9% 80 ml @ Per Protocol IV . Q0M [facility] Rx#:[id number] propofoL 1,000 mg In 135.586 85.974 Empty Bag 1 bag @ Titrate IV .Q0M [facility] Rx#: [id number] Tube Feeding 450 450 170 Other 90 90 30 Output: Urine 3045 547 95 Other: Voiding Method Indwelling Catheter Indwelling Catheter Indwelling Catheter ABP, PAP, CO, CI - Last Documented Arterial Blood Pressure 119/59 - Exam General: The patient is sedated and mechanically ventilated. Trachea in place. Eye: there is normal conjunctiva bilaterally. Cardiovascular: Normal S1-S2, no S3-S4, no murmurs. Respiratory: Lungs with mechanical ventilator sounds Gastrointestinal: Abdomen is soft, nontender. PEG tube in place Musculoskeletal: There is no pedal edema. Skin: Skin is warm and dry - Labs CBC & Chem 7: 02/10/20 04:50 02/10/20 04:50 Labs: Abnormal Lab Results - Last 24 Hours (Table) 02/09/20 02/09/20 02/09/20 Range/Units 04:10 11:51 17:11 RBC (3.80-5.40) m/uL Hgb (11.4-16.0) gm/dL Hct (34.0-46.0) % RDW (11.5-15.5) % Lymphocytes # (1.0-4.8) k/uL Fibrinogen (200-500) mg/dL D-Dimer (<0.60) mg/L FEU ABG pCO2 (35-45) mmHg ABG pO2 (83-108) mmHg ABG HCO3 (21-25) mmol/L ABG Total CO2 (19-24) mmol/L Carbon Dioxide (22-30) mmol/L BUN (7-17) mg/dL Creatinine (0.52-1.04) mg/dL Glucose (74-99) mg/dL POC Glucose (mg/dL) 107 H 163 H (75-99) mg/dL Calcium (8.4-10.2) mg/dL Ferritin (10.0-291.0) ng/mL C-Reactive Protein (<10.0) mg/L Total Protein (6.3-8.2) g/dL Albumin (3.5-5.0) g/dL Procalcitonin 0.32 H (0.02-0.09) ng/mL 02/10/20 02/10/20 02/10/20 Range/Units 00:00 04:50 04:50 RBC 2.58 L (3.80-5.40) m/uL Hgb 8.0 L (11.4-16.0) gm/dL Hct 25.3 L (34.0-46.0) % RDW 16.3 H (11.5-15.5) % Lymphocytes # 0.6 L (1.0-4.8) k/uL Fibrinogen (200-500) mg/dL D-Dimer (<0.60) mg/L FEU ABG pCO2 (35-45) mmHg ABG pO2 (83-108) mmHg ABG HCO3 (21-25) mmol/L ABG Total CO2 (19-24) mmol/L Carbon Dioxide 33 H (22-30) mmol/L BUN 34 H (7-17) mg/dL Creatinine 0.51 L (0.52-1.04) mg/dL Glucose 173 H (74-99) mg/dL POC Glucose (mg/dL) 167 H (75-99) mg/dL Calcium 7.9 L (8.4-10.2) mg/dL Ferritin 438.7 H (10.0-291.0) ng/mL C-Reactive Protein 227.0 H (<10.0) mg/L Total Protein 4.4 L (6.3-8.2) g/dL Albumin 1.9 L (3.5-5.0) g/dL Procalcitonin (0.02-0.09) ng/mL 02/10/20 02/10/20 02/10/20 Range/Units 04:50 04:50 06:07 RBC (3.80-5.40) m/uL Hgb (11.4-16.0) gm/dL Hct (34.0-46.0) % RDW (11.5-15.5) % Lymphocytes # (1.0-4.8) k/uL Fibrinogen 604 H (200-500) mg/dL D-Dimer 3.04 H (<0.60) mg/L FEU ABG pCO2 48 H (35-45) mmHg ABG pO2 67 L (83-108) mmHg ABG HCO3 31 H (21-25) mmol/L ABG Total CO2 33 H (19-24) mmol/L Carbon Dioxide (22-30) mmol/L BUN (7-17) mg/dL Creatinine (0.52-1.04) mg/dL Glucose (74-99) mg/dL POC Glucose (mg/dL) 207 H (75-99) mg/dL Calcium (8.4-10.2) mg/dL Ferritin (10.0-291.0) ng/mL C-Reactive Protein (<10.0) mg/L Total Protein (6.3-8.2) g/dL Albumin (3.5-5.0) g/dL Procalcitonin (0.02-0.09) ng/mL Microbiology - Last 24 Hours (Table) 02/08/20 08:53 Blood Culture - Preliminary Blood No Growth after 24 hours Assessment and Plan Assessment: 79 year old woman with history of HTN, DVT presented with dyspnea and found to have acute hypoxemic respiratory failure secondary to COVID-19 positive status as well as pulmonary embolism discovered on admission. She was found to be in A Fib with RVR and was ultimately controlled with metoprolol and amiodarone. She developed ARDS during her hospitalization, and ultimately required mechanical ventilation. She was intubated on 01/15, and since that time has not been able to be weaned. 1. Acute Hypoxemic Respiratory Failure secondary to ARDS 2. ARDS secondary to COVID-19 3. Bicytopenia: Anemia/Thrombocytopenia 4. Anasarca 5. Pulmonary Embolism without cor pulmonale, History of DVT 6. Paroxysmal Atrial Fibrillation with RVR 7. Enterococcus and E. coli Complicated UTI Covid 19 pneumonia with acute hypoxic respiratory failure, ARDS - Failing weaning trials, now with trach/peg 02/03 - Completed Remdesivir on 01/15 - s/p Dexamethasone day #17 days completed now back on IV Solu-Medrol managed by ICU team - Status post convalescent plasma 01/14 - Continue zinc, vitamin C, vitamin D, Pepcid, and melatonin Labile Blood Pressure, currently on vasopressors - AM cortisol does not indicate adrenal insufficiency Anemia, undetermined cause, thrombocytopenia, likely reactive - 2 units pRBC since admission DIffuse Anasarca - IV Lasix managed by ICU team Pulmonary embolus without right ventricular strain, history of prior DVT - Lovenox A fib with RVR - lovenox, amio - Cardiology following Entercoccus and E coli UTI -Status post treatment with Levaquin, stop date 01/31 Thrombocytopenia KALYAN due to ATN with resultant metabolic acidosis and hyperphosphatemia, resolved Septic shock, resolved Hypokalemia, resolved DVT prophylaxis: Lovenox for PE Discussed with: Nursing, ICU team Anticipated discharge: 3-[address]: [facility]
[2020-02-10 11:10] LABS: Appearance,Urine Clear (Clear); Bilirubin,Urine Negative (Negative); Blood,Urine Negative (Negative); Color,Urine Light Yellow; Glucose,Urine (UA) Negative (Negative); Ketones,Urine Negative (Negative); Leukocyte Esterase,Urine Negative (Negative); Nitrite,Urine Negative (Negative); PH, Urine 5.5 (5.0-8.0); Protein,Urine Negative (Negative); Specific Gravity,Urine 1.008 (1.001-1.035); Urobilinogen,Urine <2.0 mg/dL (<2.0)
[2020-02-10 12:09] LABS: Glucose,Whole Blood 196 mg/dL (75-99)
--- NOTE | 2020-02-10 13:03 | P.PN ---
Subjective Progress Note Date: 02/10/20 Principal diagnosis: Acute hypoxic regular failure secondary to covid 19 related pneumonia. On today's evaluation of 01/12/2020, the patient is being seen in follow-up. As mentioned earlier, the patient was infected with jane virus Covid 19 and the patient had an acute Covid 19 related pneumonia with diffuse breath and pulmonary infiltrates. Subsequently, the patient had a CT angios of the chest that showed bilateral pulmonary infiltrates and groundglass opacities in add ition to pulmonary embolism involving mainly the right-sided pulmonary artery branches. Filling defect in the right pulmonary artery and segmental branches in addition to that there is a mild component of strain pattern. Nevertheless, tachycardic and short and a ejection fraction of 6065% and the patient had no enlargement of the right ventricle and there was no evidence of any pulmonary hypertension. Noted the patient oxidation is gradually gotten worse and currently the patient is on high flow oxygen at 6 L with an FiO2 of 85% and this was utilized to bring the saturation above 90%. The patient is on IV heparin with a therapeutic PTT of 58.7. Based on the acute jane virus Covid 19 i nfection, the patient had an LDH of 1455 and a CRP is at 47.9. The patient is having difficulty breathing with minimal amount of activity. Currently she is on bedrest. The patient has no pleurisy. No hemoptysis. Altered mentation. No other significant events overnight. Based on the worsening oxygenation, repeat chest x-ray was done and showed a patchy bilateral pulmonary infiltrates right more than left. No pleural effusion. The findings are essentially stable compared to yesterday's chest x-ray. On 01/18/2020, the patient remains intubated on a mechanical ventilator. This morning, the patient sedated with propofol and is calm and comfortable. Propofol is running at 50 mcg/kg per minute. The patient remained on assist control mode of ventilation. She is on a tidal volume of 451 and FiO2 of 50% with a PEEP of 12 and a rate of 14. The patient's blood gases showed a pH of 7.21 with episodes of 56 and pO2 of 126. The peak airway pressure is 30. The static airway pressure is 28. Chest x-ray remains unchanged. There is bilateral pulmonary infiltrates which remains essentially unchanged compared to yesterday. She has a triple lumen catheter. Her CVP is around 9. She did receive total of 2 L of IV fluids yesterday which both upper CVP and improved her blood pressure. She remains on a low dose norepinephrine infusion running at 0.04-respiratory KG per minute. She also has an acute kidney injury and a component of non-anion gap metabolic acidosis. Based on that, I gave her 2 A of sodium bicarbonate total of 100 mEq and the patient was also started on abicarb infusion. This improved her non-anion gap metabolic acidosis. The serum bicarb today is up to 24. Creatinine is at 1.6 with a BUN of 82. The patient meanwhile went into atrial fibrillation again with rapid ventricular response. Based on her hypotension, I opted to start the patient on amiodarone. I loaded her with a total of 150 mg of amiodarone bolus and I'm going to load completely over the next 24 hours. She is also on IV cefepime as an empiric antibiotic coverage. She is completed a course of Remdesivir ,, convalescent plasma 1 and the patient is also been on Decadron 6 mg every 24 hours. Reevaluated today on 01/26/20, patient remains in the ICU, intubated and mechanically ventilated. Ventilator settings are assist control rate of 18 tidal volume 450 FiO2 50% PEEP is 12. I did cut down the PEEP to 10 and increase the rate to 20. ABG today showed a pO2 of 98 pCO2 of 46 pH of 7.30. Patient is on IV fluid at 75 mL per hour, propofol at 40 mcg/kg/m, norepinephrine at 0.01 mcg/kg/m, amiodarone 0.5 mg per hour, patient is on Lovenox and on cefepime. Patient has a right subclavian triple-lumen catheter, and a right radial arterial line. Patient did receive 1 unit of convalescent plasma, and receivedremdesivir. Chest x-ray continues to show increase infiltrates with possibly a small left pleural effusion infiltrates are noted bilaterally., WBC count is 11.3 hemoglobin is 8.5. D-dimer is 9.45. BUN is 80 creatinine 1.29. I's are normal. LDH is 02/28/2007 and C-reactive protein is 45.6 Patient was reevaluated today on 01/20/20, remains in the ICU, remains intubated and mechanically ventilated. Ventilator settings are assist control rate of 20 tidal volume is 450 FiO2 is 50% and PEEP of 10. ABG showed a pO2 of 83 pCO2 of 40 pH of 7.37. Patient is on IV fluid at 50 mL per hour 0.9 normal saline on propofol at 40 mcg/kg/m, she is on tube feeding, and today I increased the PEEP down to 8. I plan to give the patient a weaning trial possibly with a pressure support of 8 and CPAP depending on her weaning. I have instructed that we hold propofol, assess weaning parameters, and proceed accordingly. Chest x-ray continues to show evidence of bilateral airspace disease, slight improvement compared to previous x-rays. CBC noted WBC count is 10 hemoglobin is 8.4 electrodes are normal renal profile showed a BUN of 80 creatinine of 1.05 Reevaluated today on 01/21/20, patient remains in the ICU, intubated and mechanically ventilated. Ventilator settings are assist control rate of 20 tidal volume is 450 FiO2 is 55% and PEEP is 12. Went ahead after reviewing the ABG on cut down the FiO2 to 50%. ABG showed a pO2 of 95 pCO2 of 42 pH of 7.38. Chest x-ray continues to show bilateral infiltrates, however the right side seems to be more affected than the left side. Patient remains on propofol at 40 mcg/kg/m, she is on enteral feeding, IV fluids at KVO, and remains on oral amiodarone, also remains on Lovenox. Patient was actually intubated on 01/15. Labs today showed relatively normal CBC, hemoglobin is 8.7. Electrolytes are normal except for bicarb of 21 chloride is 120 and potassium is 5.3. BUN is noted to be 80 and creatinine is 0.73. Hence her fluid was increased Reevaluated today on 01/22/20, patient remains in the ICU, intubated and mechanically ventilated. She is presently on assist control rate of 20 tidal volume is 450 FiO2 is 50% PEEP is 12. ABG showed a pO2 of 98 pCO2 of 42 pH of 7.40. Patient remains on propofol at 40 mcg/kg/m, I have recommended cutting the PEEP down to 8, Sats 50%, and I plan to give the patient hopefully today. Trial of pressure support and CPAP. Chest x-ray is basically unchanged compared to the chest x-ray yesterday, does have some infiltrates mostly in the right lung. Left lung seems to be less involved. WBC count today is 10.4 hemoglobin is 8.4, d-dimer is 4.5 to remains on therapeutic dose of Lovenox. Basic metabolic profile is normal. Patient remains on enteral feedings. Inflammatory markers are improving. Reevaluated today on 01/23/20, remains intubated and mechanically ventilated. Her assist control rate is 20 tidal volume is 450 FiO2 is 50% and PEEP is 8 ABG today showed a pO2 of 94 pCO2 of 40 pH of 7.42. Patient is on propofol at 10 mcg/kg/m, on tube feeding at goal, previously the patient failed sedation holiday, and she had to be placed on sedation and assist control mode of mechanical ventilation. Patient went into A. fib with RVR, last night, and today she is in A. fib but rate seems to be controlled. Her sodium is high today at 148, we'll try to corrected with increasing her free water intake, and we will likely awaken the patient today and possibly give her a trial of pressure support and CPAP. Chest x-ray is definitely showing some improvement in her scattered infiltrates. Compared to previous x-rays. Electrolytes were reviewed, her sodium is 148, and we'll try to corrected. Otherwise no significant abnormality on her labs WBC count is 11.2 hemoglobin is 8.4. Reevaluated today on 01/24/20, patient remains off sedation for the last 24 hours. However she remains vented, ventilator settings are assist control rate of 20 tidal volume is 450 FiO2 is 50% and PEEP of 8. ABG showed a pO2 of 91 pCO2 of 40 pH of 7.45. Patient is requiring clevidipine at 5 mg per hour. I was able to cut down her PEEP down to 5. Since her pO2 was 91. I recommended that we continue to hold sedation, however few hours later the patient became extremely agitated, had to give her Ativan, did not seem to control her agitation, and she did not seem to be appropriate, she was just agitated and thrashing coming asynchronous with the ventilator. Hence I recommended that she goes back on propofol. No chest x-ray done today. CBC showed a hemoglobin of 7.2 otherwise unremarkable. Sodium is down to 146, basic metabolic profile otherwise is normal. Patient was reevaluated today on 01/25/20. Remains in the ICU, intubated and mechanically ventilated. Her ventilator settings are assist control rate of 20 FiO2 is 70% PEEP was at 5, volume is 4. Tidal volume is 450 ABG today showed a pO2 of 87 pCO2 of 39 pH of 7.44. Yesterday patient was given a trial of weaning, however she became extremely restless and agitated. Had to be placed back on propofol, and she is now back on propofol at 10 mcg/kg/m. She is not requiring any pressors. She is on enteral feeding. And her hemoglobin today is noted to be low at 6.4, and I'm recommending a unit of packed RBCs to be transfused. She seems to be overusing blood from the site of the right subclavian triple-lumen catheter, went ahead and cut down her Lovenox to 60 mg subcu every 12 hours instead of 80 mg subcu every 12 hours. Chest x-ray, showed worsening bilateral multifocal infiltrates. And obviously the patient is not ready to be weaned again today. Hence I have increased her PEEP back to 10, and I plan to titrate her FiO2 down to 55% if possible. Discussed her condition wi th the today, and updated him on her status. Explained time that she is not ready to be weaned, and she will be kept sedated today. On 02/08/2020, the patient's condition has been worse and she is obviously decompensated. She became progressively more restless and agitated and asynchronous mechanical ventilator. The patient started losing volumes on the mechanical ventilator and the patient also became progressively more hypoxic. At a time of my arrival, the patient was breathing in the 40s, she's was not returning her volumes back and she was also running fever. The blood gases from today showed a pH of 7.55 with a pCO2 of 40 and pO2 of 55 and this was done on a VAC plus mode with a tidal volume of 650 and a PEEP of 8 with an FiO2 of 60% and at a time of 14. The chest x-ray from today shows no major interval change compared to the earlier chest x-ray. The tracheostomy tube is in a good location. The patient has bilateral pulmonary infiltrates mainly in the upper lobes and in the lower lobes and these findings are essentially unchanged compared to yesterday's chest x-ray. No significant orotracheal secretions. Her temperature max was at 102.4. The patient has no triple-lumen catheter. The patient is a PICC line in the right upper extremity. She has a Qureshi catheter. She has a left radial arterial line. She is receiving bolus feeding for nutritional support. She is on Lovenox 90 mg subcu every 12 hours regarding a previous history of pulmonary embolism. She is on no pressors for now. Based on this decompensation, the patient was started back comfortable for which is running at 20 mcg/kg per minute. Morning hemoglobin down to 6.7 from 7.1. Note that the patient's has shown no signs of any GI bleeding. A unit of packed RBC was ordered for this patient. S4 mental status, the patient was taken off the sedation for approximately 48 hours. She was opening her eyes. She was grimacing. She was still not following any commands and I did not see any recovery or significant recovery in her mentation while being off sedation. Is doing some grimacing to deep painful stimulation. Reevaluated today on 02/09/20, patient remains intubated and mechanically ventilated, she has a trach and PEG tube in place, patient underwent tracheostomy and PEG tube placement on 02/14/20, she is now on pressure control mode of mechanical ventilation, pressure is 22, rate is set at 26. Inspiratory time is 1 second. She is on 60% FiO2, she is on propofol at 55 mcg/kg/m, fentanyl 1 mcg/kg/h, and she is also on amiodarone at 1 mg drip. Patient is receiving bolus feedings. 150 ML every 4 hours, and she has free water flushes given. Remains on cefepime and vancomycin. Her urine output is marginal, hence I recommended a fluid bolus and if no improvement to be given Lasix. However the nurses changed her Qureshi, and she was able to put out at least a liter with Qureshi placement. Added Solu-Medrol 60 mg IV push every 6 hours. Chest x-ray continues to show diffuse interstitial infiltrates bilaterally. ABG today showed a pO2 of 64 pCO2 of 48 pH of 7.44 this is on FiO2 of 60%. CBC showed WBC count of 8 hemoglobin is 7.6. Basic metabolic profile is relatively normal. Pro-calcitonin is elevated at 0.32. Hence antibiotics will be continued Patient was reevaluated today on 02/10/20, remains in the ICU, intubated and mechanically ventilated. Her ventilator settings are pressure control set at 22, rate is 26, FiO2 is 60%, and PEEP of 12. Inspiratory time is 1 second. ABG today showed a pO2 of 67 pCO2 of 48 pH of 7.42. Patient is still on amiodarone at 0.5 mg/m, norepinephrine at 0.02 mcg/kg/h, propofol at 30 mcg/kg/m, and fentanyl 20 mcg/kg/h. Patient is quite sedated, unable to assess mental status, however I do plan to hold sedation today, and assess mental status at least briefly. Patient has been receiving treatment for urinary tract infection, and I will go ahead and discontinue vancomycin, and continue cefepime repeat urine cultures were ordered patient remains on bolus tube feeding, receiving vital HPI at 170 ML every 6 hours plus free water flushes every 4 hours. Chest x-ray continues to show diffuse interstitial infiltrates bilaterally. Much improvement noted on the chest x-ray. Objective - Vital Signs Vital signs: Vital Signs Temp 98.6 F 02/10/20 12:00 Pulse 56 L 02/10/20 12:00 Resp 26 H 02/10/20 12:00 BP 111/66 02/10/20 11:00 Pulse Ox 96 02/10/20 12:00 Intake & Output 02/09/20 02/10/20 02/10/20 18:59 06:59 18:59 Intake Total 0873.809 6219.643 944.284 Output Total 3045 547 545 Balance -9698.018 2699.643 399.284 Weight 81 kg Intake: IV 850.8 896 138 .9 @ KVO 240 160 120 Amiodarone 300 mg In 125 225 Dextrose 5% in Water 250 ml @ 0.5 MG/MIN 25 mls/hr IV .Q10H [facility] Rx#: [id number] Amiodarone 360 mg In 199.8 Dextrose 5% in Water 200 ml @ 1 MG/MIN 33.333 mls/ hr IV .Q6H [facility] Rx#: [id number] Cefepime 1 gm In Sodium 0 Chloride 0.9% 50 ml @ 12. 5 mls/hr IVPB Q12HR [facility] Rx#:[id number] Cefepime 2 gm In Sodium 100 Chloride 0.9% 100 ml @ 25 mls/hr IVPB Q12HR [facility] Rx #:[id number] Cefepime 2 gm In Sodium 50 100 Chloride 0.9% 100 ml @ 25 mls/hr IVPB Q12HR [facility] Rx #:[id number] Sodium Chloride 0.9% 1, 200 000 ml @ 999 mls/hr IV . Q1H1M [facility] Rx#:[id number] Vancomycin 1,500 mg In 275 Sodium Chloride 0.9% 250 ml @ 125 mls/hr IVPB Q12H [facility] Rx#:[id number] pressure bags 36 36 18 Intake, IV Titration 401.219 426.643 406.284 Amount Amiodarone 300 mg In 235.417 225 Dextrose 5% in Water 250 ml @ 0.5 MG/MIN 25 mls/hr IV .Q10H [facility] Rx#: [id number] Cefepime 1 gm In Sodium 50 Chloride 0.9% 50 ml @ 12. 5 mls/hr IVPB Q12HR [facility] Rx#:[id number] Norepinephrine 4 mg In 178 46.147 35.598 Sodium Chloride 0.9% 250 ml @ 0.05 MCG/KG/MIN 16. 231 mls/hr IV .[id number] [facility] Rx#:[id number] fentaNYL (PF) 1,000 mcg 87.633 59.105 95.686 In Sodium Chloride 0.9% 80 ml @ Per Protocol IV . Q0M [facility] Rx#:[id number] propofoL 1,000 mg In 135.586 85.974 Empty Bag 1 bag @ Titrate IV .Q0M [facility] Rx#: [id number] Tube Feeding 450 450 340 Other 90 90 60 Output: Urine 3045 547 545 Other: Voiding Method Indwelling Catheter Indwelling Catheter Indwelling Catheter ABP, PAP, CO, CI - Last Documented Arterial Blood Pressure 115/58 - Exam GENERAL EXAM: Revealed 79-year-old female intubated, on mechanical ventilation. HEAD: Atraumatic, normocephalic. Tracheostomy is intact. HEENT: PERRLA, EOMI, no icterus, no neck masses, no JVD, no stridor. Moist mucous membranes. .CHEST: No chest wall deformity. LUNGS: Crackles noted bilaterally more so at the right base. Symmetrical chest expansion. CVS: Irregular rhythm, no S3 gallop. ABDOMEN: No hepatosplenomegaly, normal bowel sounds, no guarding or rigidity. PEG tube is intact SPINE: No scoliosis or deformity SKIN: No rashes CENTRAL NERVOUS SYSTEM: Cannot assess, fully sedated EXTREMITIES: No clubbing, 1+ bipedal edema no cyanosis. - Labs CBC & Chem 7: 02/10/20 04:50 02/10/20 10:33 Labs: Abnormal Lab Results - Last 24 Hours (Table) 02/09/20 02/10/20 02/10/20 Range/Units 17:11 00:00 04:50 RBC 2.58 L (3.80-5.40) m/uL Hgb 8.0 L (11.4-16.0) gm/dL Hct 25.3 L (34.0-46.0) % RDW 16.3 H (11.5-15.5) % Lymphocytes # 0.6 L (1.0-4.8) k/uL Fibrinogen (200-500) mg/dL D-Dimer (<0.60) mg/L FEU ABG pCO2 (35-45) mmHg ABG pO2 (83-108) mmHg ABG HCO3 (21-25) mmol/L ABG Total CO2 (19-24) mmol/L Carbon Dioxide (22-30) mmol/L BUN (7-17) mg/dL Creatinine (0.52-1.04) mg/dL Glucose (74-99) mg/dL POC Glucose (mg/dL) 163 H 167 H (75-99) mg/dL Calcium (8.4-10.2) mg/dL Ferritin (10.0-291.0) ng/mL C-Reactive Protein (<10.0) mg/L Total Protein (6.3-8.2) g/dL Albumin (3.5-5.0) g/dL 02/10/20 02/10/20 02/10/20 Range/Units 04:50 04:50 04:50 RBC (3.80-5.40) m/uL Hgb (11.4-16.0) gm/dL Hct (34.0-46.0) % RDW (11.5-15.5) % Lymphocytes # (1.0-4.8) k/uL Fibrinogen 604 H (200-500) mg/dL D-Dimer 3.04 H (<0.60) mg/L FEU ABG pCO2 48 H (35-45) mmHg ABG pO2 67 L (83-108) mmHg ABG HCO3 31 H (21-25) mmol/L ABG Total CO2 33 H (19-24) mmol/L Carbon Dioxide 33 H (22-30) mmol/L BUN 34 H (7-17) mg/dL Creatinine 0.51 L (0.52-1.04) mg/dL Glucose 173 H (74-99) mg/dL POC Glucose (mg/dL) (75-99) mg/dL Calcium 7.9 L (8.4-10.2) mg/dL Ferritin 438.7 H (10.0-291.0) ng/mL C-Reactive Protein 227.0 H (<10.0) mg/L Total Protein 4.4 L (6.3-8.2) g/dL Albumin 1.9 L (3.5-5.0) g/dL 02/10/20 02/10/20 Range/Units 06:07 12:08 RBC (3.80-5.40) m/uL Hgb (11.4-16.0) gm/dL Hct (34.0-46.0) % RDW (11.5-15.5) % Lymphocytes # (1.0-4.8) k/uL Fibrinogen (200-500) mg/dL D-Dimer (<0.60) mg/L FEU ABG pCO2 (35-45) mmHg ABG pO2 (83-108) mmHg ABG HCO3 (21-25) mmol/L ABG Total CO2 (19-24) mmol/L Carbon Dioxide (22-30) mmol/L BUN (7-17) mg/dL Creatinine (0.52-1.04) mg/dL Glucose (74-99) mg/dL POC Glucose (mg/dL) 207 H 196 H (75-99) mg/dL Calcium (8.4-10.2) mg/dL Ferritin (10.0-291.0) ng/mL C-Reactive Protein (<10.0) mg/L Total Protein (6.3-8.2) g/dL Albumin (3.5-5.0) g/dL Microbiology - Last 24 Hours (Table) 02/08/20 08:53 Blood Culture - Preliminary Blood No Growth after 48 hours Assessment and Plan Assessment: Impression: Acute hypoxic respiratory failure with bilateral pneumonia and ARDS. secondary to Covid 19 pneumonitis. Acute pulmonary embolism is another contributing fa ctor to her hypoxic respiratory failure Acute right sided pulmonary embolism and hypercoagulability secondary to jane virus infection. Recurrent atrial fibrillation, maintained on amiodarone. And on anticoagulations therapy. Remote history of deep vein thrombosis patient has been on Xarelto on outpatient basis. Acute kidney injury. Elevated d-dimer. Hypercoagulable state. Hypernatremia secondary to free water deficit. Suspect acute toxic metabolic encephalopathy, related to her Covid 19 infection. Chronic anemia, multifactorial. Status post tracheostomy and PEG tube placement on 02/14/20 Recommendation: Continue ventilatory support., Continue pressure control mode of mechanical ventilation. Old sedation today and assess mental status. Continue nutritional support. Via PEG. Continue anticoagulation therapy. Continue Covid 19 cocktail treatment. Continue amiodarone. Titrate norepinephrine accordingly and maintain a mean arterial pressure above 60. Continue GI prophylaxis. Not quite ready for weaning Remains critically ill. Discontinue vancomycin however continue cefepime. Repeat urine cultures. Continue Solu-Medrol. Continue free water flushes Critical care time is over 30 minutes. Time with Patient: Greater than 30
--- NOTE | 2020-02-10 13:39 | P.PN ---
Subjective Progress Note Date: 02/10/20 CHIEF COMPLAINT: Covid 19 pneumonia HISTORY OF PRESENT ILLNESS: Patient remains in the ICU and on mechanical ventilation and is sedated. Patient is status post trach and PEG tube placement. Patient is currently tolerating bolus tube feedings. Patient is still requiring pressor support. Afebrile. WBC 7.1 Hgb 8.0 PHYSICAL EXAM: VITAL SIGNS: Reviewed. GENERAL: Well-developed in no acute distress. HEENT: No sclera icterus. Extraocular movements grossly intact. Moist buccal mucosa. Head is atraumatic, normocephalic. Tracheostomy site clean dry and intact ABDOMEN: Soft. Nondistended. Nontender. PEG tube site clean dry and intact NEUROLOGIC: Patient is intubated and sedated ASSESSMENT: 1. Acute hypoxic respiratory failure status post tracheostomy placement 2. Severe protein calorie malnutrition status post PEG tube placement 3. Acute hypoxic respiratory failure with Covid 19 pneumonia and pulmonary embolism PLAN: -Continue tube feedings -Continue supportive care Physician Supervisor Looping note has been reviewed by physician. Signing provider agrees with the documented findings, assessment, and plan of care. Objective - Vital Signs Vital signs: Vital Signs Temp 98.6 F 02/10/20 12:00 Pulse 57 L 02/10/20 13:00 Resp 26 H 02/10/20 13:00 BP 111/66 02/10/20 11:00 Pulse Ox 92 L 02/10/20 13:00 Intake & Output 02/09/20 02/10/20 02/10/20 18:59 06:59 18:59 Intake Total 0666.594 7732.643 967.284 Output Total 3045 547 625 Balance -3037.150 2958.643 342.284 Weight 81 kg Intake: IV 850.8 896 161 .9 @ KVO 240 160 140 Amiodarone 300 mg In 125 225 Dextrose 5% in Water 250 ml @ 0.5 MG/MIN 25 mls/hr IV .Q10H [facility] Rx#: [id number] Amiodarone 360 mg In 199.8 Dextrose 5% in Water 200 ml @ 1 MG/MIN 33.333 mls/ hr IV .Q6H [facility] Rx#: [id number] Cefepime 1 gm In Sodium 0 Chloride 0.9% 50 ml @ 12. 5 mls/hr IVPB Q12HR [facility] Rx#:[id number] Cefepime 2 gm In Sodium 100 Chloride 0.9% 100 ml @ 25 mls/hr IVPB Q12HR [facility] Rx #:[id number] Cefepime 2 gm In Sodium 50 100 Chloride 0.9% 100 ml @ 25 mls/hr IVPB Q12HR [facility] Rx #:[id number] Sodium Chloride 0.9% 1, 200 000 ml @ 999 mls/hr IV . Q1H1M [facility] Rx#:[id number] Vancomycin 1,500 mg In 275 Sodium Chloride 0.9% 250 ml @ 125 mls/hr IVPB Q12H [facility] Rx#:[id number] pressure bags 36 36 21 Intake, IV Titration 401.219 426.643 406.284 Amount Amiodarone 300 mg In 235.417 225 Dextrose 5% in Water 250 ml @ 0.5 MG/MIN 25 mls/hr IV .Q10H [facility] Rx#: [id number] Cefepime 1 gm In Sodium 50 Chloride 0.9% 50 ml @ 12. 5 mls/hr IVPB Q12HR [facility] Rx#:[id number] Norepinephrine 4 mg In 178 46.147 35.598 Sodium Chloride 0.9% 250 ml @ 0.05 MCG/KG/MIN 16. 231 mls/hr IV .[id number] [facility] Rx#:[id number] fentaNYL (PF) 1,000 mcg 87.633 59.105 95.686 In Sodium Chloride 0.9% 80 ml @ Per Protocol IV . Q0M [facility] Rx#:[id number] propofoL 1,000 mg In 135.586 85.974 Empty Bag 1 bag @ Titrate IV .Q0M [facility] Rx#: [id number] Tube Feeding 450 450 340 Other 90 90 60 Output: Urine 3045 547 625 Other: Voiding Method Indwelling Catheter Indwelling Catheter Indwelling Catheter ABP, PAP, CO, CI - Last Documented Arterial Blood Pressure 115/57 - Labs CBC & Chem 7: 02/10/20 04:50 02/10/20 10:33 Labs: Abnormal Lab Results - Last 24 Hours (Table) 02/09/20 02/10/20 02/10/20 Range/Units 17:11 00:00 04:50 RBC 2.58 L (3.80-5.40) m/uL Hgb 8.0 L (11.4-16.0) gm/dL Hct 25.3 L (34.0-46.0) % RDW 16.3 H (11.5-15.5) % Lymphocytes # 0.6 L (1.0-4.8) k/uL Fibrinogen (200-500) mg/dL D-Dimer (<0.60) mg/L FEU ABG pCO2 (35-45) mmHg ABG pO2 (83-108) mmHg ABG HCO3 (21-25) mmol/L ABG Total CO2 (19-24) mmol/L Carbon Dioxide (22-30) mmol/L BUN (7-17) mg/dL Creatinine (0.52-1.04) mg/dL Glucose (74-99) mg/dL POC Glucose (mg/dL) 163 H 167 H (75-99) mg/dL Calcium (8.4-10.2) mg/dL Ferritin (10.0-291.0) ng/mL C-Reactive Protein (<10.0) mg/L Total Protein (6.3-8.2) g/dL Albumin (3.5-5.0) g/dL 02/10/20 02/10/20 02/10/20 Range/Units 04:50 04:50 04:50 RBC (3.80-5.40) m/uL Hgb (11.4-16.0) gm/dL Hct (34.0-46.0) % RDW (11.5-15.5) % Lymphocytes # (1.0-4.8) k/uL Fibrinogen 604 H (200-500) mg/dL D-Dimer 3.04 H (<0.60) mg/L FEU ABG pCO2 48 H (35-45) mmHg ABG pO2 67 L (83-108) mmHg ABG HCO3 31 H (21-25) mmol/L ABG Total CO2 33 H (19-24) mmol/L Carbon Dioxide 33 H (22-30) mmol/L BUN 34 H (7-17) mg/dL Creatinine 0.51 L (0.52-1.04) mg/dL Glucose 173 H (74-99) mg/dL POC Glucose (mg/dL) (75-99) mg/dL Calcium 7.9 L (8.4-10.2) mg/dL Ferritin 438.7 H (10.0-291.0) ng/mL C-Reactive Protein 227.0 H (<10.0) mg/L Total Protein 4.4 L (6.3-8.2) g/dL Albumin 1.9 L (3.5-5.0) g/dL 02/10/20 02/10/20 Range/Units 06:07 12:08 RBC (3.80-5.40) m/uL Hgb (11.4-16.0) gm/dL Hct (34.0-46.0) % RDW (11.5-15.5) % Lymphocytes # (1.0-4.8) k/uL Fibrinogen (200-500) mg/dL D-Dimer (<0.60) mg/L FEU ABG pCO2 (35-45) mmHg ABG pO2 (83-108) mmHg ABG HCO3 (21-25) mmol/L ABG Total CO2 (19-24) mmol/L Carbon Dioxide (22-30) mmol/L BUN (7-17) mg/dL Creatinine (0.52-1.04) mg/dL Glucose (74-99) mg/dL POC Glucose (mg/dL) 207 H 196 H (75-99) mg/dL Calcium (8.4-10.2) mg/dL Ferritin (10.0-291.0) ng/mL C-Reactive Protein (<10.0) mg/L Total Protein (6.3-8.2) g/dL Albumin (3.5-5.0) g/dL Microbiology - Last 24 Hours (Table) 02/08/20 08:53 Blood Culture - Preliminary Blood No Growth after 48 hours
[2020-02-10] MEDS ORDERED: POTASSIUM BICARBONATE/CIT AC 20 MEQ TABLET.EFF NG-TUBE SCH (16:00)
[2020-02-10 17:39] LABS: Glucose,Whole Blood 198 mg/dL (75-99)
[2020-02-10] MEDS ORDERED: INSULIN DETEMIR (LEVEMIR) 100 UNIT/ML SYR SQ SCH ×2 (20:00→21:00)
[2020-02-10 20:04] LABS: Glucose,Whole Blood 212 mg/dL (75-99)
[2020-02-10] MEDS: MELATONIN 5 MG TABLET PO SCH (21:48)
[2020-02-10 22:38] LABS: Glucose,Whole Blood 203 mg/dL (75-99)
[2020-02-10 23:24] LABS: Glucose,Whole Blood 207 mg/dL (75-99)
[2020-02-11 05:13] LABS: ABG Base Excess 8.6 mmol/L; ABG HCO3 33 mmol/L (21-25); ABG Oxygen Saturation 97.1 % (94-97); ABG PCO2 53 mmHg (35-45); ABG PO2 78 mmHg (83-108); ABG TCO2 35 mmol/L (19-24)
[2020-02-11 05:16] LABS: Anisocytosis Slight; Basophils % (A) 0 %; Eosinophils % (A) 0 %; HCT 28.4 % (34.0-46.0); HGB 8.6 gm/dL (11.4-16.0); Hypochromasia Marked; Lymphocytes # (A) 0.8 k/uL (1.0-4.8); Lymphocytes % (A) 9 %; MCH 29.8 pg (25.0-35.0); MCHC 30.4 g/dL (31.0-37.0); Macrocytosis Slight; Mean Platelet Volume 7.9; Monocytes # (A) 0.5 k/uL (0-1.0); Monocytes % (A) 5 %; Neutrophils % (A) 85 %; Platelet Count 559 k/uL (150-450); Poikilocytosis Slight; RDW 16.4 % (11.5-15.5); WBC 9.5 k/uL (3.8-10.6)
[2020-02-11 05:20] LABS: ALT 18 U/L (4-34); AST 13 U/L (14-36); African American GFR (CKD) >90 (>60 ml/min/1.73 sqM); Albumin 2.2 g/dL (3.5-5.0); Alkaline Phosphatase 94 U/L (38-126); Anion Gap 0 mmol/L; Blood Urea Nitrogen 42 mg/dL (7-17); Calcium 8.4 mg/dL (8.4-10.2); Carbon Dioxide 34 mmol/L (22-30); Chloride 105 mmol/L (98-107); Glucose 192 mg/dL (74-99); Non-African American GFR(CKD) >90 (>60 ml/min/1.73 sqM); Potassium 4.2 mmol/L (3.5-5.1); Sodium 139 mmol/L (137-145); Total Bilirubin 0.4 mg/dL (0.2-1.3); Total Protein 4.9 g/dL (6.3-8.2)
[2020-02-11 05:32] LABS: C Reactive Protein 123.9 mg/L (<10.0)
[2020-02-11 06:01] LABS: Glucose,Whole Blood 220 mg/dL (75-99)
[2020-02-11] MEDS: INSULIN ASPART (NovoLOG) 100 UNIT/ML VIAL SQ SCH ×3 (06:06→18:12)
[2020-02-11] MEDS: methylPREDNISolone SOD SUCCI 125 MG/2 ML VIAL IV SCH ×3 (06:06→18:11)
--- NOTE | 2020-02-11 07:04 | XR ---
EXAMINATION TYPE: XR chest 1V DATE OF EXAM: 02/11/2020 COMPARISON: 02/10/2020 HISTORY: SOB, Follow Up FINDINGS: Indwelling tubes and catheters are unchanged. Pulmonary infiltrates persist bilaterally without significant interval change. Stable appearance of the cardio-mediastinal structures at this time. Pleural effusion unchanged. IMPRESSION: 1. Stable portable chest. Clinical correlation and follow up until resolution is recommended.
[2020-02-11] MEDS: ASCORBIC ACID 500 MG TAB PO SCH (08:33)
[2020-02-11] MEDS: AMIODARONE 200 MG TAB PO SCH (08:33)
[2020-02-11] MEDS: CEFEPIME 1 GM in SODIUM CHLORIDE 0.9% 50 ML IVPB SCH ×2 (08:35→20:38)
[2020-02-11] MEDS: FUROSEMIDE 10 MG/ML 4 ML VIAL IV SCH (08:36)
[2020-02-11] MEDS: CHOLECALCIFEROL 1,000 UNIT TAB PO SCH (08:36)
[2020-02-11] MEDS: FAMOTIDINE 20 MG TAB PO SCH (08:36)
[2020-02-11] MEDS: CHLORHEXIDINE GLUCONATE 15 ML CUP MUCOUS MEM SCH ×2 (08:36→20:38)
[2020-02-11] MEDS: ENOXAPARIN 100 MG/ML SYRINGE SQ SCH ×2 (08:36→20:38)
[2020-02-11] MEDS: ZINC SULFATE 220 MG CAP PO SCH (08:37)
[2020-02-11] MEDS: METOPROLOL TARTRATE 50 MG TAB PO SCH ×3 (08:37→20:39)
[2020-02-11] MEDS: INSULIN DETEMIR (LEVEMIR) 100 UNIT/ML SYR SQ SCH ×2 (08:46→20:39)
[2020-02-11] MEDS: ALBUTEROL HFA INHALER INHALATION SCH ×4 (09:30→20:26)
[2020-02-11 09:59] LABS: Ferritin 409.7 ng/mL (10.0-291.0)
[2020-02-11] MEDS ORDERED: DEXMEDETOMIDINE/0.9% NACL(PMX) 400 MCG in EMPTY BAG 1 BAG IV SCH (10:20)
[2020-02-11] MEDS: CLEVIDIPINE BUTYRATE 25 MG in EMPTY BAG 1 BAG IV SCH (11:08)
[2020-02-11] MEDS ORDERED: MORPHINE SULFATE 4 MG/ML SYRINGE IVP STA (11:46)
[2020-02-11 11:59] LABS: ABG PH 7.59 (7.35-7.45)
[2020-02-11 12:32] LABS: Glucose,Whole Blood 194 mg/dL (75-99)
--- NOTE | 2020-02-11 13:46 | P.PN ---
Subjective Progress Note Date: 02/11/20 Principal diagnosis: Acute hypoxic regular failure secondary to covid 19 related pneumonia. On today's evaluation of 01/12/2020, the patient is being seen in follow-up. As mentioned earlier, the patient was infected with jane virus Covid 19 and the patient had an acute Covid 19 related pneumonia with diffuse breath and pulmonary infiltrates. Subsequently, the patient had a CT angios of the chest that showed bilateral pulmonary infiltrates and groundglass opacities in add ition to pulmonary embolism involving mainly the right-sided pulmonary artery branches. Filling defect in the right pulmonary artery and segmental branches in addition to that there is a mild component of strain pattern. Nevertheless, tachycardic and short and a ejection fraction of 6065% and the patient had no enlargement of the right ventricle and there was no evidence of any pulmonary hypertension. Noted the patient oxidation is gradually gotten worse and currently the patient is on high flow oxygen at 6 L with an FiO2 of 85% and this was utilized to bring the saturation above 90%. The patient is on IV heparin with a therapeutic PTT of 58.7. Based on the acute jane virus Covid 19 i nfection, the patient had an LDH of 1455 and a CRP is at 47.9. The patient is having difficulty breathing with minimal amount of activity. Currently she is on bedrest. The patient has no pleurisy. No hemoptysis. Altered mentation. No other significant events overnight. Based on the worsening oxygenation, repeat chest x-ray was done and showed a patchy bilateral pulmonary infiltrates right more than left. No pleural effusion. The findings are essentially stable compared to yesterday's chest x-ray. On 01/18/2020, the patient remains intubated on a mechanical ventilator. This morning, the patient sedated with propofol and is calm and comfortable. Propofol is running at 50 mcg/kg per minute. The patient remained on assist control mode of ventilation. She is on a tidal volume of 451 and FiO2 of 50% with a PEEP of 12 and a rate of 14. The patient's blood gases showed a pH of 7.21 with episodes of 56 and pO2 of 126. The peak airway pressure is 30. The static airway pressure is 28. Chest x-ray remains unchanged. There is bilateral pulmonary infiltrates which remains essentially unchanged compared to yesterday. She has a triple lumen catheter. Her CVP is around 9. She did receive total of 2 L of IV fluids yesterday which both upper CVP and improved her blood pressure. She remains on a low dose norepinephrine infusion running at 0.04-respiratory KG per minute. She also has an acute kidney injury and a component of non-anion gap metabolic acidosis. Based on that, I gave her 2 A of sodium bicarbonate total of 100 mEq and the patient was also started on abicarb infusion. This improved her non-anion gap metabolic acidosis. The serum bicarb today is up to 24. Creatinine is at 1.6 with a BUN of 82. The patient meanwhile went into atrial fibrillation again with rapid ventricular response. Based on her hypotension, I opted to start the patient on amiodarone. I loaded her with a total of 150 mg of amiodarone bolus and I'm going to load completely over the next 24 hours. She is also on IV cefepime as an empiric antibiotic coverage. She is completed a course of Remdesivir ,, convalescent plasma 1 and the patient is also been on Decadron 6 mg every 24 hours. Reevaluated today on 01/26/20, patient remains in the ICU, intubated and mechanically ventilated. Ventilator settings are assist control rate of 18 tidal volume 450 FiO2 50% PEEP is 12. I did cut down the PEEP to 10 and increase the rate to 20. ABG today showed a pO2 of 98 pCO2 of 46 pH of 7.30. Patient is on IV fluid at 75 mL per hour, propofol at 40 mcg/kg/m, norepinephrine at 0.01 mcg/kg/m, amiodarone 0.5 mg per hour, patient is on Lovenox and on cefepime. Patient has a right subclavian triple-lumen catheter, and a right radial arterial line. Patient did receive 1 unit of convalescent plasma, and receivedremdesivir. Chest x-ray continues to show increase infiltrates with possibly a small left pleural effusion infiltrates are noted bilaterally., WBC count is 11.3 hemoglobin is 8.5. D-dimer is 9.45. BUN is 80 creatinine 1.29. I's are normal. LDH is 02/28/2007 and C-reactive protein is 45.6 Patient was reevaluated today on 01/20/20, remains in the ICU, remains intubated and mechanically ventilated. Ventilator settings are assist control rate of 20 tidal volume is 450 FiO2 is 50% and PEEP of 10. ABG showed a pO2 of 83 pCO2 of 40 pH of 7.37. Patient is on IV fluid at 50 mL per hour 0.9 normal saline on propofol at 40 mcg/kg/m, she is on tube feeding, and today I increased the PEEP down to 8. I plan to give the patient a weaning trial possibly with a pressure support of 8 and CPAP depending on her weaning. I have instructed that we hold propofol, assess weaning parameters, and proceed accordingly. Chest x-ray continues to show evidence of bilateral airspace disease, slight improvement compared to previous x-rays. CBC noted WBC count is 10 hemoglobin is 8.4 electrodes are normal renal profile showed a BUN of 80 creatinine of 1.05 Reevaluated today on 01/21/20, patient remains in the ICU, intubated and mechanically ventilated. Ventilator settings are assist control rate of 20 tidal volume is 450 FiO2 is 55% and PEEP is 12. Went ahead after reviewing the ABG on cut down the FiO2 to 50%. ABG showed a pO2 of 95 pCO2 of 42 pH of 7.38. Chest x-ray continues to show bilateral infiltrates, however the right side seems to be more affected than the left side. Patient remains on propofol at 40 mcg/kg/m, she is on enteral feeding, IV fluids at KVO, and remains on oral amiodarone, also remains on Lovenox. Patient was actually intubated on 01/15. Labs today showed relatively normal CBC, hemoglobin is 8.7. Electrolytes are normal except for bicarb of 21 chloride is 120 and potassium is 5.3. BUN is noted to be 80 and creatinine is 0.73. Hence her fluid was increased Reevaluated today on 01/22/20, patient remains in the ICU, intubated and mechanically ventilated. She is presently on assist control rate of 20 tidal volume is 450 FiO2 is 50% PEEP is 12. ABG showed a pO2 of 98 pCO2 of 42 pH of 7.40. Patient remains on propofol at 40 mcg/kg/m, I have recommended cutting the PEEP down to 8, Sats 50%, and I plan to give the patient hopefully today. Trial of pressure support and CPAP. Chest x-ray is basically unchanged compared to the chest x-ray yesterday, does have some infiltrates mostly in the right lung. Left lung seems to be less involved. WBC count today is 10.4 hemoglobin is 8.4, d-dimer is 4.5 to remains on therapeutic dose of Lovenox. Basic metabolic profile is normal. Patient remains on enteral feedings. Inflammatory markers are improving. Reevaluated today on 01/23/20, remains intubated and mechanically ventilated. Her assist control rate is 20 tidal volume is 450 FiO2 is 50% and PEEP is 8 ABG today showed a pO2 of 94 pCO2 of 40 pH of 7.42. Patient is on propofol at 10 mcg/kg/m, on tube feeding at goal, previously the patient failed sedation holiday, and she had to be placed on sedation and assist control mode of mechanical ventilation. Patient went into A. fib with RVR, last night, and today she is in A. fib but rate seems to be controlled. Her sodium is high today at 148, we'll try to corrected with increasing her free water intake, and we will likely awaken the patient today and possibly give her a trial of pressure support and CPAP. Chest x-ray is definitely showing some improvement in her scattered infiltrates. Compared to previous x-rays. Electrolytes were reviewed, her sodium is 148, and we'll try to corrected. Otherwise no significant abnormality on her labs WBC count is 11.2 hemoglobin is 8.4. Reevaluated today on 01/24/20, patient remains off sedation for the last 24 hours. However she remains vented, ventilator settings are assist control rate of 20 tidal volume is 450 FiO2 is 50% and PEEP of 8. ABG showed a pO2 of 91 pCO2 of 40 pH of 7.45. Patient is requiring clevidipine at 5 mg per hour. I was able to cut down her PEEP down to 5. Since her pO2 was 91. I recommended that we continue to hold sedation, however few hours later the patient became extremely agitated, had to give her Ativan, did not seem to control her agitation, and she did not seem to be appropriate, she was just agitated and thrashing coming asynchronous with the ventilator. Hence I recommended that she goes back on propofol. No chest x-ray done today. CBC showed a hemoglobin of 7.2 otherwise unremarkable. Sodium is down to 146, basic metabolic profile otherwise is normal. Patient was reevaluated today on 01/25/20. Remains in the ICU, intubated and mechanically ventilated. Her ventilator settings are assist control rate of 20 FiO2 is 70% PEEP was at 5, volume is 4. Tidal volume is 450 ABG today showed a pO2 of 87 pCO2 of 39 pH of 7.44. Yesterday patient was given a trial of weaning, however she became extremely restless and agitated. Had to be placed back on propofol, and she is now back on propofol at 10 mcg/kg/m. She is not requiring any pressors. She is on enteral feeding. And her hemoglobin today is noted to be low at 6.4, and I'm recommending a unit of packed RBCs to be transfused. She seems to be overusing blood from the site of the right subclavian triple-lumen catheter, went ahead and cut down her Lovenox to 60 mg subcu every 12 hours instead of 80 mg subcu every 12 hours. Chest x-ray, showed worsening bilateral multifocal infiltrates. And obviously the patient is not ready to be weaned again today. Hence I have increased her PEEP back to 10, and I plan to titrate her FiO2 down to 55% if possible. Discussed her condition wi th the today, and updated him on her status. Explained time that she is not ready to be weaned, and she will be kept sedated today. On 02/08/2020, the patient's condition has been worse and she is obviously decompensated. She became progressively more restless and agitated and asynchronous mechanical ventilator. The patient started losing volumes on the mechanical ventilator and the patient also became progressively more hypoxic. At a time of my arrival, the patient was breathing in the 40s, she's was not returning her volumes back and she was also running fever. The blood gases from today showed a pH of 7.55 with a pCO2 of 40 and pO2 of 55 and this was done on a VAC plus mode with a tidal volume of 650 and a PEEP of 8 with an FiO2 of 60% and at a time of 14. The chest x-ray from today shows no major interval change compared to the earlier chest x-ray. The tracheostomy tube is in a good location. The patient has bilateral pulmonary infiltrates mainly in the upper lobes and in the lower lobes and these findings are essentially unchanged compared to yesterday's chest x-ray. No significant orotracheal secretions. Her temperature max was at 102.4. The patient has no triple-lumen catheter. The patient is a PICC line in the right upper extremity. She has a Qureshi catheter. She has a left radial arterial line. She is receiving bolus feeding for nutritional support. She is on Lovenox 90 mg subcu every 12 hours regarding a previous history of pulmonary embolism. She is on no pressors for now. Based on this decompensation, the patient was started back comfortable for which is running at 20 mcg/kg per minute. Morning hemoglobin down to 6.7 from 7.1. Note that the patient's has shown no signs of any GI bleeding. A unit of packed RBC was ordered for this patient. S4 mental status, the patient was taken off the sedation for approximately 48 hours. She was opening her eyes. She was grimacing. She was still not following any commands and I did not see any recovery or significant recovery in her mentation while being off sedation. Is doing some grimacing to deep painful stimulation. Reevaluated today on 02/09/20, patient remains intubated and mechanically ventilated, she has a trach and PEG tube in place, patient underwent tracheostomy and PEG tube placement on 02/14/20, she is now on pressure control mode of mechanical ventilation, pressure is 22, rate is set at 26. Inspiratory time is 1 second. She is on 60% FiO2, she is on propofol at 55 mcg/kg/m, fentanyl 1 mcg/kg/h, and she is also on amiodarone at 1 mg drip. Patient is receiving bolus feedings. 150 ML every 4 hours, and she has free water flushes given. Remains on cefepime and vancomycin. Her urine output is marginal, hence I recommended a fluid bolus and if no improvement to be given Lasix. However the nurses changed her Qureshi, and she was able to put out at least a liter with Qureshi placement. Added Solu-Medrol 60 mg IV push every 6 hours. Chest x-ray continues to show diffuse interstitial infiltrates bilaterally. ABG today showed a pO2 of 64 pCO2 of 48 pH of 7.44 this is on FiO2 of 60%. CBC showed WBC count of 8 hemoglobin is 7.6. Basic metabolic profile is relatively normal. Pro-calcitonin is elevated at 0.32. Hence antibiotics will be continued Patient was reevaluated today on 02/10/20, remains in the ICU, intubated and mechanically ventilated. Her ventilator settings are pressure control set at 22, rate is 26, FiO2 is 60%, and PEEP of 12. Inspiratory time is 1 second. ABG today showed a pO2 of 67 pCO2 of 48 pH of 7.42. Patient is still on amiodarone at 0.5 mg/m, norepinephrine at 0.02 mcg/kg/h, propofol at 30 mcg/kg/m, and fentanyl 20 mcg/kg/h. Patient is quite sedated, unable to assess mental status, however I do plan to hold sedation today, and assess mental status at least briefly. Patient has been receiving treatment for urinary tract infection, and I will go ahead and discontinue vancomycin, and continue cefepime repeat urine cultures were ordered patient remains on bolus tube feeding, receiving vital HPI at 170 ML every 6 hours plus free water flushes every 4 hours. Chest x-ray continues to show diffuse interstitial infiltrates bilaterally. Much improvement noted on the chest x-ray. Reevaluated today on 02/11/20, patient remains in the ICU, intubated and mechanically ventilated, patient is receiving mechanical ventilation through tracheostomy. And she is receiving enteral feeding through PEG tube. Her vent ilator settings are pressure control set at 22, rate is 26, FiO2 is 60% and PEEP is 12. ABG showed a pO2 of 78 pCO2 of 53 pH of 7.40. Patient is on propofol at 30 mcg/kg/m, IV fluid to KVO, fentanyl 12 mcg/kg/m, she is not requiring any pressors, she is hemodynamically stable. Try today to discontinue sedation and assessment of sinus, however off fentanyl and on propofol, patient was noted to be extremely agitated, restless, could not follow any instructions, her blood pressure was over 200 systolic, and could not get the patient to respond to any stimuli. Tried patient on Nimbex, did not seem to do well, continued to desaturate on Nimbex, and she was agonal with mechanical ventilation. Hence the patient back on propofol, and will decide on the dose of fentanyl possibly cutting down significantly. Chest x-ray continues to show diffuse interstitial infiltrates, not much change since admission. Objective - Vital Signs Vital signs: Vital Signs Temp 98.0 F 02/11/20 12:00 Pulse 84 02/11/20 13:00 Resp 28 H 02/11/20 13:00 BP 111/66 02/10/20 19:00 Pulse Ox 94 L 02/11/20 13:00 Intake & Output 02/10/20 02/11/20 02/11/20 18:59 06:59 18:59 Intake Total 7715.380 0233.145 789.169 Output Total 538 489 1738 Balance 312.284 944.145 -255.831 Weight 84.5 kg Intake: IV 276 386 231 .9 @ KVO 240 300 210 Cefepime 1 gm In Sodium 50 Chloride 0.9% 50 ml @ 12. 5 mls/hr IVPB Q12HR [facility] Rx#:[id number] pressure bags 36 36 21 Intake, IV Titration 506.284 445.145 158.169 Amount Amiodarone 300 mg In 225 Dextrose 5% in Water 250 ml @ 0.5 MG/MIN 25 mls/hr IV .Q10H [facility] Rx#: [id number] Cefepime 1 gm In Sodium 50 Chloride 0.9% 50 ml @ 12. 5 mls/hr IVPB Q12HR [facility] Rx#:[id number] Clevidipine Butyrate 25 11.233 mg In Empty Bag 1 bag @ 1 MG/HR 2 mls/hr IV .Q24H [facility] Rx#:[id number] Dexmedetomidine/0.9% NaCl 5.634 (Pmx) 400 mcg In Empty Bag 1 bag @ Titrate IV . Q0M [facility] Rx#:[id number] Norepinephrine 4 mg In 35.598 117.397 Sodium Chloride 0.9% 250 ml @ 0.05 MCG/KG/MIN 16. 231 mls/hr IV .[id number] [facility] Rx#:[id number] fentaNYL (PF) 1,000 mcg 95.686 85.586 90.09 In Sodium Chloride 0.9% 80 ml @ Per Protocol IV . Q0M [facility] Rx#:[id number] propofoL 1,000 mg In 100 242.162 51.212 Empty Bag 1 bag @ Titrate IV .Q0M [facility] Rx#: [id number] Tube Feeding 340 510 340 Other 60 90 60 Output: Urine 310 851 1010 Other: Voiding Method Indwelling Catheter Indwelling Catheter Indwelling Catheter ABP, PAP, CO, CI - Last Documented Arterial Blood Pressure 139/68 - Exam GENERAL EXAM: Revealed 79-year-old female intubated, on mechanical ventilation. HEAD: Atraumatic, normocephalic. Tracheostomy is intact. HEENT: PERRLA, EOMI, no icterus, no neck masses, no JVD, no stridor. Moist mucous membranes. .CHEST: No chest wall deformity. LUNGS: Crackles noted bilaterally more so at the right base. Symmetrical chest expansion. CVS: Irregular rhythm, no S3 gallop. ABDOMEN: No hepatosplenomegaly, normal bowel sounds, no guarding or rigidity. PEG tube is intact SPINE: No scoliosis or deformity SKIN: No rashes CENTRAL NERVOUS SYSTEM: Cannot assess, off sedation, the patient was noted to be extremely agitated, restless, and quite encephalopathic. EXTREMITIES: No clubbing, trace of bipedal edema, no cyanosis. - Labs CBC & Chem 7: 02/11/20 04:50 02/11/20 04:50 Labs: Abnormal Lab Results - Last 24 Hours (Table) 02/04/20 02/10/20 02/10/20 Range/Units 04:50 17:36 20:02 RBC (3.80-5.40) m/uL Hgb (11.4-16.0) gm/dL Hct (34.0-46.0) % MCHC (31.0-37.0) g/dL RDW (11.5-15.5) % Plt Count (150-450) k/uL Neutrophils # (1.3-7.7) k/uL Lymphocytes # (1.0-4.8) k/uL Fibrinogen (200-500) mg/dL ABG pH 7.59 H* (7.35-7.45) ABG pCO2 (35-45) mmHg ABG pO2 (83-108) mmHg ABG HCO3 (21-25) mmol/L ABG Total CO2 (19-24) mmol/L ABG O2 Saturation (94-97) % Carbon Dioxide (22-30) mmol/L BUN (7-17) mg/dL Creatinine (0.52-1.04) mg/dL Glucose (74-99) mg/dL POC Glucose (mg/dL) 198 H 212 H (75-99) mg/dL Ferritin (10.0-291.0) ng/mL AST (14-36) U/L C-Reactive Protein (<10.0) mg/L Total Protein (6.3-8.2) g/dL Albumin (3.5-5.0) g/dL 02/10/20 02/10/20 02/11/20 Range/Units 22:36 23:22 04:50 RBC 2.90 L (3.80-5.40) m/uL Hgb 8.6 L (11.4-16.0) gm/dL Hct 28.4 L (34.0-46.0) % MCHC 30.4 L (31.0-37.0) g/dL RDW 16.4 H (11.5-15.5) % Plt Count 559 H (150-450) k/uL Neutrophils # 8.0 H (1.3-7.7) k/uL Lymphocytes # 0.8 L (1.0-4.8) k/uL Fibrinogen (200-500) mg/dL ABG pH (7.35-7.45) ABG pCO2 (35-45) mmHg ABG pO2 (83-108) mmHg ABG HCO3 (21-25) mmol/L ABG Total CO2 (19-24) mmol/L ABG O2 Saturation (94-97) % Carbon Dioxide (22-30) mmol/L BUN (7-17) mg/dL Creatinine (0.52-1.04) mg/dL Glucose (74-99) mg/dL POC Glucose (mg/dL) 203 H 207 H (75-99) mg/dL Ferritin (10.0-291.0) ng/mL AST (14-36) U/L C-Reactive Protein (<10.0) mg/L Total Protein (6.3-8.2) g/dL Albumin (3.5-5.0) g/dL 02/11/20 02/11/20 02/11/20 Range/Units 04:50 04:50 04:54 RBC (3.80-5.40) m/uL Hgb (11.4-16.0) gm/dL Hct (34.0-46.0) % MCHC (31.0-37.0) g/dL RDW (11.5-15.5) % Plt Count (150-450) k/uL Neutrophils # (1.3-7.7) k/uL Lymphocytes # (1.0-4.8) k/uL Fibrinogen 599 H (200-500) mg/dL ABG pH (7.35-7.45) ABG pCO2 53 H (35-45) mmHg ABG pO2 78 L (83-108) mmHg ABG HCO3 33 H (21-25) mmol/L ABG Total CO2 35 H (19-24) mmol/L ABG O2 Saturation 97.1 H (94-97) % Carbon Dioxide 34 H (22-30) mmol/L BUN 42 H (7-17) mg/dL Creatinine 0.48 L (0.52-1.04) mg/dL Glucose 192 H (74-99) mg/dL POC Glucose (mg/dL) (75-99) mg/dL Ferritin 409.7 H (10.0-291.0) ng/mL AST 13 L (14-36) U/L C-Reactive Protein 123.9 H (<10.0) mg/L Total Protein 4.9 L (6.3-8.2) g/dL Albumin 2.2 L (3.5-5.0) g/dL 02/11/20 02/11/20 Range/Units 05:59 12:29 RBC (3.80-5.40) m/uL Hgb (11.4-16.0) gm/dL Hct (34.0-46.0) % MCHC (31.0-37.0) g/dL RDW (11.5-15.5) % Plt Count (150-450) k/uL Neutrophils # (1.3-7.7) k/uL Lymphocytes # (1.0-4.8) k/uL Fibrinogen (200-500) mg/dL ABG pH (7.35-7.45) ABG pCO2 (35-45) mmHg ABG pO2 (83-108) mmHg ABG HCO3 (21-25) mmol/L ABG Total CO2 (19-24) mmol/L ABG O2 Saturation (94-97) % Carbon Dioxide (22-30) mmol/L BUN (7-17) mg/dL Creatinine (0.52-1.04) mg/dL Glucose (74-99) mg/dL POC Glucose (mg/dL) 220 H 194 H (75-99) mg/dL Ferritin (10.0-291.0) ng/mL AST (14-36) U/L C-Reactive Protein (<10.0) mg/L Total Protein (6.3-8.2) g/dL Albumin (3.5-5.0) g/dL Microbiology - Last 24 Hours (Table) 02/10/20 10:30 Urine Culture - Preliminary Urine,Catheterized Yeast species 02/08/20 08:53 Blood Culture - Preliminary Blood No Growth after 72 hours 02/11/20 00:41 Sputum Culture - Preliminary Sputum Assessment and Plan Assessment: Impression: Acute hypoxic respiratory failure with bilateral pneumonia and ARDS. secondary to Covid 19 pneumonitis. Acute right sided pulmonary embolism and hypercoagulability secondary to jane virus infection. Another contributing factor to her hypoxemia. Recurrent atrial fibrillation, maintained on amiodarone. And on anticoagulations therapy. Remote history of deep vein thrombosis patient has been on Xarelto on outpatient basis. Acute kidney injury. Resolved since admission Elevated d-dimer. Hypercoagulable state. Hypernatremia secondary to free water deficit. Improving, sodium is 139 today. Suspect acute toxic metabolic encephalopathy, related to her Covid 19 infection. Chronic anemia, multifactorial. Status post tracheostomy and PEG tube placement on 02/04/20 Recommendation: Continue ventilatory support., Continue pressure control mode of mechanical ventilation. Daily interruption of sedation and assessment of mental status, today was not successful. Continue nutritional support. Via PEG. Continue anticoagulation therapy. Continue Covid 19 cocktail treatment. Continue amiodarone. Continue GI prophylaxis. Not quite ready for weaning Remains critically ill. continue cefepime. Repeat urine cultures. Continue Solu-Medrol. Continue free water flushes Critical care time is over 30 minutes. Time with Patient: Greater than 30
--- NOTE | 2020-02-11 14:03 | P.PN ---
Subjective Progress Note Date: 02/11/20 CHIEF COMPLAINT: Covid 19 pneumonia HISTORY OF PRESENT ILLNESS: Patient remains in the ICU and on mechanical ventilation and is sedated. Patient is status post trach and PEG tube placement. Patient is currently tolerating bolus tube feedings. Patient did have leaking from the trach cuff. Per nursing staff balloon is losing air over the course of a few hours. Afebrile. WBC 9.5 PHYSICAL EXAM: VITAL SIGNS: Reviewed. GENERAL: Well-developed in no acute distress. HEENT: No sclera icterus. Extraocular movements grossly intact. Moist buccal mucosa. Head is atraumatic, normocephalic. Tracheostomy site clean dry and intact ABDOMEN: Soft. Nondistended. Nontender. PEG tube site clean dry and intact NEUROLOGIC: Patient is intubated and sedated ASSESSMENT: 1. Acute hypoxic respiratory failure status post tracheostomy placement 2. Severe protein calorie malnutrition status post PEG tube placement 3. Acute hypoxic respiratory failure with Covid 19 pneumonia and pulmonary embolism PLAN: -Continue tube feedings -Continue supportive care Physician Stamp Presser note has been reviewed by physician. Signing provider agrees with the documented findings, assessment, and plan of care. Objective - Vital Signs Vital signs: Vital Signs Temp 98.0 F 02/11/20 12:00 Pulse 84 02/11/20 13:00 Resp 28 H 02/11/20 13:00 BP 111/66 02/10/20 19:00 Pulse Ox 94 L 02/11/20 13:00 Intake & Output 02/10/20 02/11/20 02/11/20 18:59 06:59 18:59 Intake Total 2394.971 7451.145 789.169 Output Total 518 175 0943 Balance 312.284 944.145 -255.831 Weight 84.5 kg Intake: IV 276 386 231 .9 @ KVO 240 300 210 Cefepime 1 gm In Sodium 50 Chloride 0.9% 50 ml @ 12. 5 mls/hr IVPB Q12HR [facility] Rx#:[id number] pressure bags 36 36 21 Intake, IV Titration 506.284 445.145 158.169 Amount Amiodarone 300 mg In 225 Dextrose 5% in Water 250 ml @ 0.5 MG/MIN 25 mls/hr IV .Q10H [facility] Rx#: [id number] Cefepime 1 gm In Sodium 50 Chloride 0.9% 50 ml @ 12. 5 mls/hr IVPB Q12HR [facility] Rx#:[id number] Clevidipine Butyrate 25 11.233 mg In Empty Bag 1 bag @ 1 MG/HR 2 mls/hr IV .Q24H [facility] Rx#:[id number] Dexmedetomidine/0.9% NaCl 5.634 (Pmx) 400 mcg In Empty Bag 1 bag @ Titrate IV . Q0M [facility] Rx#:[id number] Norepinephrine 4 mg In 35.598 117.397 Sodium Chloride 0.9% 250 ml @ 0.05 MCG/KG/MIN 16. 231 mls/hr IV .[id number] [facility] Rx#:[id number] fentaNYL (PF) 1,000 mcg 95.686 85.586 90.09 In Sodium Chloride 0.9% 80 ml @ Per Protocol IV . Q0M [facility] Rx#:[id number] propofoL 1,000 mg In 100 242.162 51.212 Empty Bag 1 bag @ Titrate IV .Q0M [facility] Rx#: [id number] Tube Feeding 340 510 340 Other 60 90 60 Output: Urine 811 891 6552 Other: Voiding Method Indwelling Catheter Indwelling Catheter Indwelling Catheter ABP, PAP, CO, CI - Last Documented Arterial Blood Pressure 139/68 - Labs CBC & Chem 7: 02/11/20 04:50 02/11/20 04:50 Labs: Abnormal Lab Results - Last 24 Hours (Table) 02/04/20 02/10/20 02/10/20 Range/Units 04:50 17:36 20:02 RBC (3.80-5.40) m/uL Hgb (11.4-16.0) gm/dL Hct (34.0-46.0) % MCHC (31.0-37.0) g/dL RDW (11.5-15.5) % Plt Count (150-450) k/uL Neutrophils # (1.3-7.7) k/uL Lymphocytes # (1.0-4.8) k/uL Fibrinogen (200-500) mg/dL ABG pH 7.59 H* (7.35-7.45) ABG pCO2 (35-45) mmHg ABG pO2 (83-108) mmHg ABG HCO3 (21-25) mmol/L ABG Total CO2 (19-24) mmol/L ABG O2 Saturation (94-97) % Carbon Dioxide (22-30) mmol/L BUN (7-17) mg/dL Creatinine (0.52-1.04) mg/dL Glucose (74-99) mg/dL POC Glucose (mg/dL) 198 H 212 H (75-99) mg/dL Ferritin (10.0-291.0) ng/mL AST (14-36) U/L C-Reactive Protein (<10.0) mg/L Total Protein (6.3-8.2) g/dL Albumin (3.5-5.0) g/dL 02/10/20 02/10/20 02/11/20 Range/Units 22:36 23:22 04:50 RBC 2.90 L (3.80-5.40) m/uL Hgb 8.6 L (11.4-16.0) gm/dL Hct 28.4 L (34.0-46.0) % MCHC 30.4 L (31.0-37.0) g/dL RDW 16.4 H (11.5-15.5) % Plt Count 559 H (150-450) k/uL Neutrophils # 8.0 H (1.3-7.7) k/uL Lymphocytes # 0.8 L (1.0-4.8) k/uL Fibrinogen (200-500) mg/dL ABG pH (7.35-7.45) ABG pCO2 (35-45) mmHg ABG pO2 (83-108) mmHg ABG HCO3 (21-25) mmol/L ABG Total CO2 (19-24) mmol/L ABG O2 Saturation (94-97) % Carbon Dioxide (22-30) mmol/L BUN (7-17) mg/dL Creatinine (0.52-1.04) mg/dL Glucose (74-99) mg/dL POC Glucose (mg/dL) 203 H 207 H (75-99) mg/dL Ferritin (10.0-291.0) ng/mL AST (14-36) U/L C-Reactive Protein (<10.0) mg/L Total Protein (6.3-8.2) g/dL Albumin (3.5-5.0) g/dL 02/11/20 02/11/20 02/11/20 Range/Units 04:50 04:50 04:54 RBC (3.80-5.40) m/uL Hgb (11.4-16.0) gm/dL Hct (34.0-46.0) % MCHC (31.0-37.0) g/dL RDW (11.5-15.5) % Plt Count (150-450) k/uL Neutrophils # (1.3-7.7) k/uL Lymphocytes # (1.0-4.8) k/uL Fibrinogen 599 H (200-500) mg/dL ABG pH (7.35-7.45) ABG pCO2 53 H (35-45) mmHg ABG pO2 78 L (83-108) mmHg ABG HCO3 33 H (21-25) mmol/L ABG Total CO2 35 H (19-24) mmol/L ABG O2 Saturation 97.1 H (94-97) % Carbon Dioxide 34 H (22-30) mmol/L BUN 42 H (7-17) mg/dL Creatinine 0.48 L (0.52-1.04) mg/dL Glucose 192 H (74-99) mg/dL POC Glucose (mg/dL) (75-99) mg/dL Ferritin 409.7 H (10.0-291.0) ng/mL AST 13 L (14-36) U/L C-Reactive Protein 123.9 H (<10.0) mg/L Total Protein 4.9 L (6.3-8.2) g/dL Albumin 2.2 L (3.5-5.0) g/dL 02/11/20 02/11/20 Range/Units 05:59 12:29 RBC (3.80-5.40) m/uL Hgb (11.4-16.0) gm/dL Hct (34.0-46.0) % MCHC (31.0-37.0) g/dL RDW (11.5-15.5) % Plt Count (150-450) k/uL Neutrophils # (1.3-7.7) k/uL Lymphocytes # (1.0-4.8) k/uL Fibrinogen (200-500) mg/dL ABG pH (7.35-7.45) ABG pCO2 (35-45) mmHg ABG pO2 (83-108) mmHg ABG HCO3 (21-25) mmol/L ABG Total CO2 (19-24) mmol/L ABG O2 Saturation (94-97) % Carbon Dioxide (22-30) mmol/L BUN (7-17) mg/dL Creatinine (0.52-1.04) mg/dL Glucose (74-99) mg/dL POC Glucose (mg/dL) 220 H 194 H (75-99) mg/dL Ferritin (10.0-291.0) ng/mL AST (14-36) U/L C-Reactive Protein (<10.0) mg/L Total Protein (6.3-8.2) g/dL Albumin (3.5-5.0) g/dL Microbiology - Last 24 Hours (Table) 02/10/20 10:30 Urine Culture - Preliminary Urine,Catheterized Yeast species 02/08/20 08:53 Blood Culture - Preliminary Blood No Growth after 72 hours 02/11/20 00:41 Sputum Culture - Preliminary Sputum
--- NOTE | 2020-02-11 15:04 | P.PN ---
Subjective Progress Note Date: 02/11/20 Patient seen and examined at bedside. Patient continues to be on vent management demanding high PEEP of 12. Patient is sedated. Urinalysis revealed yeast. Patient will be started on Diflucan. Objective - Vital Signs Vital signs: Vital Signs Temp 98.0 F 02/11/20 12:00 Pulse 71 02/11/20 14:00 Resp 26 H 02/11/20 14:00 BP 111/66 02/10/20 19:00 Pulse Ox 95 02/11/20 14:00 Intake & Output 02/10/20 02/11/20 02/11/20 18:59 06:59 18:59 Intake Total 8319.969 8964.145 822.169 Output Total 741 155 6788 Balance 312.284 944.145 -402.831 Weight 84.5 kg Intake: IV 276 386 264 .9 @ KVO 240 300 240 Cefepime 1 gm In Sodium 50 Chloride 0.9% 50 ml @ 12. 5 mls/hr IVPB Q12HR [facility] Rx#:[id number] pressure bags 36 36 24 Intake, IV Titration 506.284 445.145 158.169 Amount Amiodarone 300 mg In 225 Dextrose 5% in Water 250 ml @ 0.5 MG/MIN 25 mls/hr IV .Q10H [facility] Rx#: [id number] Cefepime 1 gm In Sodium 50 Chloride 0.9% 50 ml @ 12. 5 mls/hr IVPB Q12HR [facility] Rx#:[id number] Clevidipine Butyrate 25 11.233 mg In Empty Bag 1 bag @ 1 MG/HR 2 mls/hr IV .Q24H [facility] Rx#:[id number] Dexmedetomidine/0.9% NaCl 5.634 (Pmx) 400 mcg In Empty Bag 1 bag @ Titrate IV . Q0M [facility] Rx#:[id number] Norepinephrine 4 mg In 35.598 117.397 Sodium Chloride 0.9% 250 ml @ 0.05 MCG/KG/MIN 16. 231 mls/hr IV .[id number] [facility] Rx#:[id number] fentaNYL (PF) 1,000 mcg 95.686 85.586 90.09 In Sodium Chloride 0.9% 80 ml @ Per Protocol IV . Q0M [facility] Rx#:[id number] propofoL 1,000 mg In 100 242.162 51.212 Empty Bag 1 bag @ Titrate IV .Q0M [facility] Rx#: [id number] Tube Feeding 340 510 340 Other 60 90 60 Output: Urine 408 040 7590 Other: Voiding Method Indwelling Catheter Indwelling Catheter Indwelling Catheter ABP, PAP, CO, CI - Last Documented Arterial Blood Pressure 140/66 - Exam General: [non toxic], [no distress], [appears older than age] Derm: [warm], [dry] Head: [atraumatic], [normocephalic], [symmetric] Eyes: [EOMI], [no lid lag], [anicteric sclera] Mouth: [no lip lesion], [mucus membranes moist] Cardiovascular: [S1S2 reg], [no murmur], [positive posterior tibial pulse bilateral], Lungs: [CTA bilateral], [no rhonchi, no rales] , [no accessory muscle use] Abdominal: [soft], [ nontender to palpation], [no guarding], [no appreciable organomegaly] Ext: [no gross muscle atrophy], [+1edema], [no contractures] Neuro: [ CN II-XI grossly intact], [no focal neuro deficits] Psych: Sedated - Constitutional Constitutional Comment(s): Patient is sedated unable to assess review of systems - Labs CBC & Chem 7: 02/11/20 04:50 02/11/20 04:50 Labs: Abnormal Lab Results - Last 24 Hours (Table) 02/04/20 02/10/20 02/10/20 Range/Units 04:50 17:36 20:02 RBC (3.80-5.40) m/uL Hgb (11.4-16.0) gm/dL Hct (34.0-46.0) % MCHC (31.0-37.0) g/dL RDW (11.5-15.5) % Plt Count (150-450) k/uL Neutrophils # (1.3-7.7) k/uL Lymphocytes # (1.0-4.8) k/uL Fibrinogen (200-500) mg/dL ABG pH 7.59 H* (7.35-7.45) ABG pCO2 (35-45) mmHg ABG pO2 (83-108) mmHg ABG HCO3 (21-25) mmol/L ABG Total CO2 (19-24) mmol/L ABG O2 Saturation (94-97) % Carbon Dioxide (22-30) mmol/L BUN (7-17) mg/dL Creatinine (0.52-1.04) mg/dL Glucose (74-99) mg/dL POC Glucose (mg/dL) 198 H 212 H (75-99) mg/dL Ferritin (10.0-291.0) ng/mL AST (14-36) U/L C-Reactive Protein (<10.0) mg/L Total Protein (6.3-8.2) g/dL Albumin (3.5-5.0) g/dL 02/10/20 02/10/20 02/11/20 Range/Units 22:36 23:22 04:50 RBC 2.90 L (3.80-5.40) m/uL Hgb 8.6 L (11.4-16.0) gm/dL Hct 28.4 L (34.0-46.0) % MCHC 30.4 L (31.0-37.0) g/dL RDW 16.4 H (11.5-15.5) % Plt Count 559 H (150-450) k/uL Neutrophils # 8.0 H (1.3-7.7) k/uL Lymphocytes # 0.8 L (1.0-4.8) k/uL Fibrinogen (200-500) mg/dL ABG pH (7.35-7.45) ABG pCO2 (35-45) mmHg ABG pO2 (83-108) mmHg ABG HCO3 (21-25) mmol/L ABG Total CO2 (19-24) mmol/L ABG O2 Saturation (94-97) % Carbon Dioxide (22-30) mmol/L BUN (7-17) mg/dL Creatinine (0.52-1.04) mg/dL Glucose (74-99) mg/dL POC Glucose (mg/dL) 203 H 207 H (75-99) mg/dL Ferritin (10.0-291.0) ng/mL AST (14-36) U/L C-Reactive Protein (<10.0) mg/L Total Protein (6.3-8.2) g/dL Albumin (3.5-5.0) g/dL 02/11/20 02/11/20 02/11/20 Range/Units 04:50 04:50 04:54 RBC (3.80-5.40) m/uL Hgb (11.4-16.0) gm/dL Hct (34.0-46.0) % MCHC (31.0-37.0) g/dL RDW (11.5-15.5) % Plt Count (150-450) k/uL Neutrophils # (1.3-7.7) k/uL Lymphocytes # (1.0-4.8) k/uL Fibrinogen 599 H (200-500) mg/dL ABG pH (7.35-7.45) ABG pCO2 53 H (35-45) mmHg ABG pO2 78 L (83-108) mmHg ABG HCO3 33 H (21-25) mmol/L ABG Total CO2 35 H (19-24) mmol/L ABG O2 Saturation 97.1 H (94-97) % Carbon Dioxide 34 H (22-30) mmol/L BUN 42 H (7-17) mg/dL Creatinine 0.48 L (0.52-1.04) mg/dL Glucose 192 H (74-99) mg/dL POC Glucose (mg/dL) (75-99) mg/dL Ferritin 409.7 H (10.0-291.0) ng/mL AST 13 L (14-36) U/L C-Reactive Protein 123.9 H (<10.0) mg/L Total Protein 4.9 L (6.3-8.2) g/dL Albumin 2.2 L (3.5-5.0) g/dL 02/11/20 02/11/20 Range/Units 05:59 12:29 RBC (3.80-5.40) m/uL Hgb (11.4-16.0) gm/dL Hct (34.0-46.0) % MCHC (31.0-37.0) g/dL RDW (11.5-15.5) % Plt Count (150-450) k/uL Neutrophils # (1.3-7.7) k/uL Lymphocytes # (1.0-4.8) k/uL Fibrinogen (200-500) mg/dL ABG pH (7.35-7.45) ABG pCO2 (35-45) mmHg ABG pO2 (83-108) mmHg ABG HCO3 (21-25) mmol/L ABG Total CO2 (19-24) mmol/L ABG O2 Saturation (94-97) % Carbon Dioxide (22-30) mmol/L BUN (7-17) mg/dL Creatinine (0.52-1.04) mg/dL Glucose (74-99) mg/dL POC Glucose (mg/dL) 220 H 194 H (75-99) mg/dL Ferritin (10.0-291.0) ng/mL AST (14-36) U/L C-Reactive Protein (<10.0) mg/L Total Protein (6.3-8.2) g/dL Albumin (3.5-5.0) g/dL Microbiology - Last 24 Hours (Table) 02/10/20 10:30 Urine Culture - Preliminary Urine,Catheterized Yeast species 02/08/20 08:53 Blood Culture - Preliminary Blood No Growth after 72 hours 02/11/20 00:41 Sputum Culture - Preliminary Sputum Assessment and Plan Assessment: General: [non toxic], [no distress], [appears older than stated age] Derm: [warm], [dry] Head: [atraumatic], [normocephalic], [symmetric] Eyes: [EOMI], [no lid lag], [anicteric sclera] Mouth: [no lip lesion], [mucus membranes moist] Cardiovascular: [S1S2 reg], [no murmur], [positive posterior tibial pulse bilateral], Lungs: [CTA bilateral], [ rhonchi, no rales] , [no accessory muscle use] Abdominal: [soft], [ nontender to palpation], [no guarding], [no appreciable organomegaly] Ext: [no gross muscle atrophy], [no edema], [no contractures] Neuro: [ CN II-XI grossly intact], [no focal neuro deficits] Psych: Sedated Plan: 79 year old woman with history of HTN, DVT presented with dyspnea and found to have acute hypoxemic respiratory failure secondary to COVID-19 positive status as well as pulmonary embolism discovered on admission. She was found to be in A Fib with RVR and was ultimately controlled with metoprolol and amiodarone. She developed ARDS during her hospitalization, and ultimately required mechanical ventilation. She was intubated on 01/15, and since that time has not been able to be weaned. 1. Acute Hypoxemic Respiratory Failure secondary to ARDS 2. ARDS secondary to COVID-19 3. Bicytopenia: Anemia/Thrombocytopenia 4. Anasarca 5. Pulmonary Embolism without cor pulmonale, History of DVT 6. Paroxysmal Atrial Fibrillation with RVR 7. Enterococcus and E. coli Complicated UTI resolved 8. Yeast in Urine Covid 19 pneumonia with acute hypoxic respiratory failure, ARDS - Failing weaning trials, now with trach/peg 02/03 - Completed Remdesivir on 01/15 - s/p Dexamethasone day #17 days completed now back on IV Solu-Medrol managed by ICU team - Status post convalescent plasma 01/14 - Continue zinc, vitamin C, vitamin D, Pepcid, and melatonin Labile Blood Pressure, currently on vasopressors - AM cortisol does not indicate adrenal insufficiency Anemia, multifactorial thrombocytopenia, likely reactive - 2 units pRBC since admission DIffuse Anasarca - IV Lasix managed by ICU team Pulmonary embolus without right ventricular strain, history of prior DVT - Lovenox A fib with RVR - lovenox, amio - Cardiology following Entercoccus and E coli UTI resolved -Status post treatment with Levaquin, stop date 01/31 -patient now has yeast in her urine -Diflucan started Thrombocytopenia KALYAN due to ATN with resultant metabolic acidosis and hyperphosphatemia, resolved Septic shock, resolved Hypokalemia, resolved DVT prophylaxis: Lovenox for PE Discussed with: Nursing, ICU team Anticipated discharge: 3-[address]: [facility]
[2020-02-11] MEDS: FLUCONAZOLE IN NACL,ISO-OSM 200 MG in SALINE 1 100ML.BAG IVPB SCH (15:26)
[2020-02-11 17:28] LABS: Glucose,Whole Blood 173 mg/dL (75-99)
[2020-02-11] MEDS: MELATONIN 5 MG TABLET PO SCH (20:39)
[2020-02-11] MEDS ORDERED: CLEVIDIPINE BUTYRATE 25 MG/50 ML VIAL IV ONE (22:27)
[2020-02-11 23:44] LABS: Glucose,Whole Blood 167 mg/dL (75-99)
[2020-02-12] MEDS: methylPREDNISolone SOD SUCCI 125 MG/2 ML VIAL IV SCH ×3 (00:05→11:00)
[2020-02-12] MEDS: INSULIN ASPART (NovoLOG) 100 UNIT/ML VIAL SQ SCH ×4 (00:05→18:04)
[2020-02-12] MEDS: NOREPINEPHRINE 4 MG in SODIUM CHLORIDE 0.9% 250 ML IV SCH ×2 (01:42→18:40)
[2020-02-12] MEDS ORDERED: CLEVIDIPINE BUTYRATE 25 MG/50 ML VIAL IV ONE (02:47)
[2020-02-12 04:22] LABS: ABG Base Excess 11.1 mmol/L; ABG HCO3 35 mmol/L (21-25); ABG Oxygen Saturation 97.8 % (94-97); ABG PCO2 46 mmHg (35-45); ABG PH 7.48 (7.35-7.45); ABG PO2 96 mmHg (83-108); ABG TCO2 36 mmol/L (19-24); Allen Test Performed? Yes
[2020-02-12 06:28] LABS: Glucose,Whole Blood 170 mg/dL (75-99)
--- NOTE | 2020-02-12 06:29 | XR ---
EXAMINATION TYPE: XR chest 1V portable DATE OF EXAM: 02/12/2020 CLINICAL HISTORY: Difficulty breathing progress study. TECHNIQUE: Single AP portable semiupright view of the chest is obtained. COMPARISON: Chest x-ray from one day earlier and older studies. FINDINGS:Stable tracheostomy tube and right-sided PICC line. Cardiac silhouette size stable and upper limits of normal with atherosclerotic and ectatic aortic kno b. Persistent multifocal right greater than left bilateral airspace opacities on background chronic p arenchymal change. Probable tiny bilateral pleural effusions. Underlying scoliotic curvature or posit ioning redemonstrated. IMPRESSION: Persistent bilateral multifocal infiltrates and tiny bilateral pleural effusions on backg round chronic change consistent with covid -19 infection. No significant change from most recent x-ra y.
[2020-02-12 06:46] LABS: Anisocytosis Slight; Basophils # (A) 0.1 k/uL (0-0.2); Basophils % (A) 1 %; Eosinophils % (A) 0 %; HCT 30.4 % (34.0-46.0); HGB 9.6 gm/dL (11.4-16.0); Hypochromasia Moderate; Lymphocytes # (A) 0.7 k/uL (1.0-4.8); Lymphocytes % (A) 7 %; MCH 30.8 pg (25.0-35.0); MCHC 31.7 g/dL (31.0-37.0); MCV 97.2 fL (80.0-100.0); Macrocytosis Slight; Mean Platelet Volume 8.5; Monocytes # (A) 0.5 k/uL (0-1.0); Monocytes % (A) 5 %; Neutrophils # (A) 8.9 k/uL (1.3-7.7); Neutrophils % (A) 87 %; Platelet Count 530 k/uL (150-450); RBC 3.13 m/uL (3.80-5.40); RDW 16.1 % (11.5-15.5); WBC 10.3 k/uL (3.8-10.6)
[2020-02-12 06:55] LABS: Glucose,Whole Blood 150 mg/dL (75-99)
[2020-02-12 07:20] LABS: ALT 21 U/L (4-34); AST 18 U/L (14-36); African American GFR (CKD) >90 (>60 ml/min/1.73 sqM); Albumin 2.4 g/dL (3.5-5.0); Alkaline Phosphatase 100 U/L (38-126); Anion Gap 3 mmol/L; Blood Urea Nitrogen 42 mg/dL (7-17); Calcium 8.5 mg/dL (8.4-10.2); Carbon Dioxide 35 mmol/L (22-30); Chloride 104 mmol/L (98-107); Glucose 153 mg/dL (74-99); Non-African American GFR(CKD) >90 (>60 ml/min/1.73 sqM); Potassium 3.2 mmol/L (3.5-5.1); Sodium 142 mmol/L (137-145); Total Bilirubin 0.6 mg/dL (0.2-1.3); Total Protein 5.3 g/dL (6.3-8.2)
[2020-02-12] MEDS: HYDROmorphone 0.5 MG/0.5 ML SYRINGE IVP PRN ×3 (07:56→15:14)
[2020-02-12] MEDS: ALBUTEROL HFA INHALER INHALATION SCH ×4 (08:31→20:14)
[2020-02-12] MEDS: ENOXAPARIN 100 MG/ML SYRINGE SQ SCH ×2 (08:39→21:33)
[2020-02-12] MEDS: CEFEPIME 1 GM in SODIUM CHLORIDE 0.9% 50 ML IVPB SCH ×2 (08:40→21:33)
[2020-02-12] MEDS: ZINC SULFATE 220 MG CAP PO SCH (08:40)
[2020-02-12] MEDS: FAMOTIDINE 20 MG TAB PO SCH (08:40)
[2020-02-12] MEDS: ASCORBIC ACID 500 MG TAB PO SCH (08:40)
[2020-02-12] MEDS: CHLORHEXIDINE GLUCONATE 15 ML CUP MUCOUS MEM SCH ×2 (08:40→21:34)
[2020-02-12] MEDS: CHOLECALCIFEROL 1,000 UNIT TAB PO SCH (08:40)
[2020-02-12] MEDS: AMIODARONE 200 MG TAB PO SCH (08:40)
[2020-02-12] MEDS: FUROSEMIDE 10 MG/ML 4 ML VIAL IV SCH (08:40)
[2020-02-12] MEDS: POTASSIUM BICARBONATE/CIT AC 20 MEQ TABLET.EFF NG-TUBE SCH ×4 (08:40→23:11)
[2020-02-12 08:44] LABS: Glucose,Whole Blood 154 mg/dL (75-99)
[2020-02-12] MEDS: INSULIN DETEMIR (LEVEMIR) 100 UNIT/ML SYR SQ SCH ×2 (08:44→21:33)
[2020-02-12] MEDS: QUEtiapine 50 MG TAB PO SCH ×2 (10:20→21:34)
[2020-02-12] MEDS: METOPROLOL TARTRATE 50 MG TAB PO SCH ×2 (10:20→21:34)
[2020-02-12] MEDS: CLEVIDIPINE BUTYRATE 25 MG in EMPTY BAG 1 BAG IV SCH (10:26)
[2020-02-12 11:10] LABS: Glucose,Whole Blood 189 mg/dL (75-99)
--- NOTE | 2020-02-12 11:29 | P.PN ---
Subjective Progress Note Date: 02/12/20 Principal diagnosis: COVID pneumonia Patient has not been tolerating the weanning off sedation. She gets agitated once the sedation is tapered off. No overnight issues. No fevers. Objective - Vital Signs Vital signs: Vital Signs Temp 97.2 F L 02/12/20 08:00 Pulse 76 02/12/20 10:00 Resp 25 H 02/12/20 10:00 BP 111/66 02/10/20 19:00 Pulse Ox 94 L 02/12/20 10:00 Intake & Output 02/11/20 02/12/20 02/12/20 18:59 06:59 18:59 Intake Total 1312.923 927.485 380.02 Output Total 1615 1225 725 Balance -302.077 -297.515 -344.98 Weight 84.5 kg 84.8 kg Intake: IV 396 300 142 .9 @ KVO 360 250 80 Cefepime 1 gm In Sodium 50 Chloride 0.9% 50 ml @ 12. 5 mls/hr IVPB Q12HR [facility] Rx#:[id number] pressure bags 36 50 12 Intake, IV Titration 376.923 317.485 98.02 Amount Clevidipine Butyrate 25 11.233 38.767 mg In Empty Bag 1 bag @ 1 MG/HR 2 mls/hr IV .Q24H [facility] Rx#:[id number] Dexmedetomidine/0.9% NaCl 5.634 (Pmx) 400 mcg In Empty Bag 1 bag @ Titrate IV . Q0M [facility] Rx#:[id number] Fluconazole in NaCl,Iso- 100 Osm 200 mg In Saline 1 100ml.bag @ 100 mls/hr IVPB DAILY@1600 [facility] Rx#: [id number] fentaNYL (PF) 1,000 mcg 90.09 In Sodium Chloride 0.9% 80 ml @ Per Protocol IV . Q0M [facility] Rx#:[id number] propofoL 1,000 mg In 169.966 278.718 98.02 Empty Bag 1 bag @ Titrate IV .Q0M [facility] Rx#: [id number] Tube Feeding 450 250 110 Other 90 60 30 Output: Urine 1615 1225 725 Other: Voiding Method Indwelling Catheter Indwelling Catheter # Bowel Movements 1 ABP, PAP, CO, CI - Last Documented Arterial Blood Pressure 138/60 - Exam General: [non toxic], [no distress, sedated on mechanical ventilation], [appears older than age] Derm: [warm], [dry] Head: [atraumatic], [normocephalic], [symmetric] Eyes: [EOMI], [no lid lag], [anicteric sclera] Mouth: [no lip lesion], [mucus membranes moist] Cardiovascular: [S1S2 reg], [no murmur], [positive posterior tibial pulse bilateral], Lungs: [CTA bilateral], [no rhonchi, no rales] , [no accessory muscle use] Abdominal: [soft], [ nontender to palpation], [no guarding], [no appreciable organomegaly] Ext: [no gross muscle atrophy], [+1edema], [no contractures] Neuro: [ CN II-XI grossly intact], [no focal neuro deficits] Psych: Sedated - Labs CBC & Chem 7: 02/12/20 06:30 02/12/20 06:30 Labs: Abnormal Lab Results - Last 24 Hours (Table) 02/04/20 02/11/20 02/11/20 Range/Units 04:50 12:29 17:27 RBC (3.80-5.40) m/uL Hgb (11.4-16.0) gm/dL Hct (34.0-46.0) % RDW (11.5-15.5) % Plt Count (150-450) k/uL Neutrophils # (1.3-7.7) k/uL Lymphocytes # (1.0-4.8) k/uL ABG pH 7.59 H* (7.35-7.45) ABG pCO2 (35-45) mmHg ABG HCO3 (21-25) mmol/L ABG Total CO2 (19-24) mmol/L ABG O2 Saturation (94-97) % Potassium (3.5-5.1) mmol/L Carbon Dioxide (22-30) mmol/L BUN (7-17) mg/dL Creatinine (0.52-1.04) mg/dL Glucose (74-99) mg/dL POC Glucose (mg/dL) 194 H 173 H (75-99) mg/dL Total Protein (6.3-8.2) g/dL Albumin (3.5-5.0) g/dL 02/11/20 02/12/20 02/12/20 Range/Units 23:42 04:21 06:26 RBC (3.80-5.40) m/uL Hgb (11.4-16.0) gm/dL Hct (34.0-46.0) % RDW (11.5-15.5) % Plt Count (150-450) k/uL Neutrophils # (1.3-7.7) k/uL Lymphocytes # (1.0-4.8) k/uL ABG pH 7.48 H (7.35-7.45) ABG pCO2 46 H (35-45) mmHg ABG HCO3 35 H (21-25) mmol/L ABG Total CO2 36 H (19-24) mmol/L ABG O2 Saturation 97.8 H (94-97) % Potassium (3.5-5.1) mmol/L Carbon Dioxide (22-30) mmol/L BUN (7-17) mg/dL Creatinine (0.52-1.04) mg/dL Glucose (74-99) mg/dL POC Glucose (mg/dL) 167 H 170 H (75-99) mg/dL Total Protein (6.3-8.2) g/dL Albumin (3.5-5.0) g/dL 02/12/20 02/12/20 02/12/20 Range/Units 06:30 06:30 06:52 RBC 3.13 L (3.80-5.40) m/uL Hgb 9.6 L (11.4-16.0) gm/dL Hct 30.4 L (34.0-46.0) % RDW 16.1 H (11.5-15.5) % Plt Count 530 H (150-450) k/uL Neutrophils # 8.9 H (1.3-7.7) k/uL Lymphocytes # 0.7 L (1.0-4.8) k/uL ABG pH (7.35-7.45) ABG pCO2 (35-45) mmHg ABG HCO3 (21-25) mmol/L ABG Total CO2 (19-24) mmol/L ABG O2 Saturation (94-97) % Potassium 3.2 L (3.5-5.1) mmol/L Carbon Dioxide 35 H (22-30) mmol/L BUN 42 H (7-17) mg/dL Creatinine 0.43 L (0.52-1.04) mg/dL Glucose 153 H (74-99) mg/dL POC Glucose (mg/dL) 150 H (75-99) mg/dL Total Protein 5.3 L (6.3-8.2) g/dL Albumin 2.4 L (3.5-5.0) g/dL 02/12/20 02/12/20 Range/Units 08:43 11:09 RBC (3.80-5.40) m/uL Hgb (11.4-16.0) gm/dL Hct (34.0-46.0) % RDW (11.5-15.5) % Plt Count (150-450) k/uL Neutrophils # (1.3-7.7) k/uL Lymphocytes # (1.0-4.8) k/uL ABG pH (7.35-7.45) ABG pCO2 (35-45) mmHg ABG HCO3 (21-25) mmol/L ABG Total CO2 (19-24) mmol/L ABG O2 Saturation (94-97) % Potassium (3.5-5.1) mmol/L Carbon Dioxide (22-30) mmol/L BUN (7-17) mg/dL Creatinine (0.52-1.04) mg/dL Glucose (74-99) mg/dL POC Glucose (mg/dL) 154 H 189 H (75-99) mg/dL Total Protein (6.3-8.2) g/dL Albumin (3.5-5.0) g/dL Microbiology - Last 24 Hours (Table) 02/08/20 08:53 Blood Culture - Preliminary Blood No Growth after 96 hours 02/11/20 00:41 Gram Stain - Preliminary Sputum Sputum Culture - Preliminary Jodie albicans 02/10/20 10:30 Urine Culture - Final Urine,Catheterized Jodie albicans Assessment and Plan Plan: Covid 19 pneumonia with acute hypoxic respiratory failure, ARDS - Failing weaning trials, now with trach/peg 02/03 - Completed Remdesivir on 01/15 - s/p Dexamethasone day #17 days completed now back on IV Solu-Medrol managed by ICU team - Status post convalescent plasma 01/14 - Continue zinc, vitamin C, vitamin D, Pepcid, and melatonin Septic encephalopathy CT head today, possibly consult neuro Anemia, multifactorial thrombocytopenia, likely reactive - 2 units pRBC since admission DIffuse Anasarca - IV Lasix managed by ICU team Pulmonary embolus without right ventricular strain, history of prior DVT - Lovenox A fib with RVR - lovenox, amio Entercoccus and E coli UTI resolved now with jodie in the urine and sputum -Status post treatment with Levaquin, stop date 01/31 -Diflucan started Thrombocytopenia KALYAN due to ATN with resultant metabolic acidosis and hyperphosphatemia, resolved Septic shock, resolved Hypokalemia, resolved DVT prophylaxis: Lovenox for PE Discussed with: Nursing, ICU team Anticipated discharge: 3-[address]: [facility]
--- NOTE | 2020-02-12 13:03 | P.PN ---
Subjective Progress Note Date: 02/12/20 CHIEF COMPLAINT: Covid 19 pneumonia HISTORY OF PRESENT ILLNESS: Patient remains in the ICU and on mechanical ventilation and is sedated. Patient is status post trach and PEG tube placement. Patient is currently tolerating bolus tube feedings. Apparently patient is having difficulty being titrated off sedation. Seroquel was added. Patient is afebrile. WBC 10.3 PHYSICAL EXAM: VITAL SIGNS: Reviewed. GENERAL: Well-developed in no acute distress. HEENT: No sclera icterus. Extraocular movements grossly intact. Moist buccal mucosa. Head is atraumatic, normocephalic. Tracheostomy site clean dry and intact ABDOMEN: Soft. Nondistended. Nontender. PEG tube site clean dry and intact NEUROLOGIC: Patient is intubated and sedated ASSESSMENT: 1. Acute hypoxic respiratory failure status post tracheostomy placement 2. Severe protein calorie malnutrition status post PEG tube placement 3. Acute hypoxic respiratory failure with Covid 19 pneumonia and pulmonary embolism PLAN: -Continue tube feedings -Continue supportive care Physician Insurance Risk Surveyor note has been reviewed by physician. Signing provider agrees with the documented findings, assessment, and plan of care. Objective - Vital Signs Vital signs: Vital Signs Temp 98.1 F 02/12/20 12:00 Pulse 63 02/12/20 12:00 Resp 27 H 02/12/20 12:00 BP 111/66 02/10/20 19:00 Pulse Ox 93 L 02/12/20 12:00 Intake & Output 02/11/20 02/12/20 02/12/20 18:59 06:59 18:59 Intake Total 1312.923 927.485 605.92 Output Total 1615 1225 1625 Balance -302.077 -297.515 -1019.08 Weight 84.5 kg 84.8 kg Intake: IV 396 300 188 .9 @ KVO 360 250 120 Cefepime 1 gm In Sodium 50 Chloride 0.9% 50 ml @ 12. 5 mls/hr IVPB Q12HR [facility] Rx#:[id number] pressure bags 36 50 18 Intake, IV Titration 376.923 317.485 107.92 Amount Clevidipine Butyrate 25 11.233 38.767 9.9 mg In Empty Bag 1 bag @ 1 MG/HR 2 mls/hr IV .Q24H [facility] Rx#:[id number] Dexmedetomidine/0.9% NaCl 5.634 (Pmx) 400 mcg In Empty Bag 1 bag @ Titrate IV . Q0M [facility] Rx#:[id number] Fluconazole in NaCl,Iso- 100 Osm 200 mg In Saline 1 100ml.bag @ 100 mls/hr IVPB DAILY@1600 [facility] Rx#: [id number] fentaNYL (PF) 1,000 mcg 90.09 In Sodium Chloride 0.9% 80 ml @ Per Protocol IV . Q0M [facility] Rx#:[id number] propofoL 1,000 mg In 169.966 278.718 98.02 Empty Bag 1 bag @ Titrate IV .Q0M [facility] Rx#: [id number] Oral 30 Tube Feeding 450 250 220 Other 90 60 60 Output: Urine 1615 1225 1625 Other: Voiding Method Indwelling Catheter Indwelling Catheter # Bowel Movements 1 ABP, PAP, CO, CI - Last Documented Arterial Blood Pressure 110/48 - Labs CBC & Chem 7: 02/12/20 06:30 02/12/20 06:30 Labs: Abnormal Lab Results - Last 24 Hours (Table) 02/11/20 02/11/20 02/12/20 Range/Units 17:27 23:42 04:21 RBC (3.80-5.40) m/uL Hgb (11.4-16.0) gm/dL Hct (34.0-46.0) % RDW (11.5-15.5) % Plt Count (150-450) k/uL Neutrophils # (1.3-7.7) k/uL Lymphocytes # (1.0-4.8) k/uL ABG pH 7.48 H (7.35-7.45) ABG pCO2 46 H (35-45) mmHg ABG HCO3 35 H (21-25) mmol/L ABG Total CO2 36 H (19-24) mmol/L ABG O2 Saturation 97.8 H (94-97) % Potassium (3.5-5.1) mmol/L Carbon Dioxide (22-30) mmol/L BUN (7-17) mg/dL Creatinine (0.52-1.04) mg/dL Glucose (74-99) mg/dL POC Glucose (mg/dL) 173 H 167 H (75-99) mg/dL Total Protein (6.3-8.2) g/dL Albumin (3.5-5.0) g/dL 02/12/20 02/12/20 02/12/20 Range/Units 06:26 06:30 06:30 RBC 3.13 L (3.80-5.40) m/uL Hgb 9.6 L (11.4-16.0) gm/dL Hct 30.4 L (34.0-46.0) % RDW 16.1 H (11.5-15.5) % Plt Count 530 H (150-450) k/uL Neutrophils # 8.9 H (1.3-7.7) k/uL Lymphocytes # 0.7 L (1.0-4.8) k/uL ABG pH (7.35-7.45) ABG pCO2 (35-45) mmHg ABG HCO3 (21-25) mmol/L ABG Total CO2 (19-24) mmol/L ABG O2 Saturation (94-97) % Potassium 3.2 L (3.5-5.1) mmol/L Carbon Dioxide 35 H (22-30) mmol/L BUN 42 H (7-17) mg/dL Creatinine 0.43 L (0.52-1.04) mg/dL Glucose 153 H (74-99) mg/dL POC Glucose (mg/dL) 170 H (75-99) mg/dL Total Protein 5.3 L (6.3-8.2) g/dL Albumin 2.4 L (3.5-5.0) g/dL 02/12/20 02/12/20 02/12/20 Range/Units 06:52 08:43 11:09 RBC (3.80-5.40) m/uL Hgb (11.4-16.0) gm/dL Hct (34.0-46.0) % RDW (11.5-15.5) % Plt Count (150-450) k/uL Neutrophils # (1.3-7.7) k/uL Lymphocytes # (1.0-4.8) k/uL ABG pH (7.35-7.45) ABG pCO2 (35-45) mmHg ABG HCO3 (21-25) mmol/L ABG Total CO2 (19-24) mmol/L ABG O2 Saturation (94-97) % Potassium (3.5-5.1) mmol/L Carbon Dioxide (22-30) mmol/L BUN (7-17) mg/dL Creatinine (0.52-1.04) mg/dL Glucose (74-99) mg/dL POC Glucose (mg/dL) 150 H 154 H 189 H (75-99) mg/dL Total Protein (6.3-8.2) g/dL Albumin (3.5-5.0) g/dL Microbiology - Last 24 Hours (Table) 02/08/20 08:53 Blood Culture - Preliminary Blood No Growth after 96 hours 02/11/20 00:41 Gram Stain - Preliminary Sputum Sputum Culture - Preliminary Jodie albicans 02/10/20 10:30 Urine Culture - Final Urine,Catheterized Jodie albicans
[2020-02-12] MEDS: FLUCONAZOLE IN NACL,ISO-OSM 200 MG in SALINE 1 100ML.BAG IVPB SCH (15:16)
--- NOTE | 2020-02-12 15:25 | CT ---
EXAMINATION TYPE: CT brain wo con DATE OF EXAM: 02/12/2020 COMPARISON: 12/05/2011 INDICATION: Mental status changes DLP: 1258.2 mGycm, Automated exposure control for dose reduction was used. CONTRAST: None CT of the brain is performed utilizing 3 mm thick sections through the posterior fossa and 3 mm thick sections through the remaining calvarium. Study is performed within 24 hours of arrival to the [facility]. No abnormal hyperdensity is present to suggest an acute intracranial hemorrhage. No mass lesion is evident. No acute infarcts are evident. Ventricles and sulci are appropriate for the patient age. Air-fluid levels are within the sphenoid sinuses. Dense calcification is within the inferior right ma xillary sinus Remaining paranasal sinuses and mastoid air cells are clear. IMPRESSIONS: 1. No acute intracranial process. 2. Clinical correlation recommended for acute sphenoid sinusitis
--- NOTE | 2020-02-12 15:39 | P.PN ---
Subjective Progress Note Date: 02/12/20 Principal diagnosis: Acute hypoxic regular failure secondary to covid 19 related pneumonia. On today's evaluation of 01/12/2020, the patient is being seen in follow-up. As mentioned earlier, the patient was infected with jane virus Covid 19 and the patient had an acute Covid 19 related pneumonia with diffuse breath and pulmonary infiltrates. Subsequently, the patient had a CT angios of the chest that showed bilateral pulmonary infiltrates and groundglass opacities in add ition to pulmonary embolism involving mainly the right-sided pulmonary artery branches. Filling defect in the right pulmonary artery and segmental branches in addition to that there is a mild component of strain pattern. Nevertheless, tachycardic and short and a ejection fraction of 6065% and the patient had no enlargement of the right ventricle and there was no evidence of any pulmonary hypertension. Noted the patient oxidation is gradually gotten worse and currently the patient is on high flow oxygen at 6 L with an FiO2 of 85% and this was utilized to bring the saturation above 90%. The patient is on IV heparin with a therapeutic PTT of 58.7. Based on the acute jane virus Covid 19 i nfection, the patient had an LDH of 1455 and a CRP is at 47.9. The patient is having difficulty breathing with minimal amount of activity. Currently she is on bedrest. The patient has no pleurisy. No hemoptysis. Altered mentation. No other significant events overnight. Based on the worsening oxygenation, repeat chest x-ray was done and showed a patchy bilateral pulmonary infiltrates right more than left. No pleural effusion. The findings are essentially stable compared to yesterday's chest x-ray. On 01/18/2020, the patient remains intubated on a mechanical ventilator. This morning, the patient sedated with propofol and is calm and comfortable. Propofol is running at 50 mcg/kg per minute. The patient remained on assist control mode of ventilation. She is on a tidal volume of 451 and FiO2 of 50% with a PEEP of 12 and a rate of 14. The patient's blood gases showed a pH of 7.21 with episodes of 56 and pO2 of 126. The peak airway pressure is 30. The static airway pressure is 28. Chest x-ray remains unchanged. There is bilateral pulmonary infiltrates which remains essentially unchanged compared to yesterday. She has a triple lumen catheter. Her CVP is around 9. She did receive total of 2 L of IV fluids yesterday which both upper CVP and improved her blood pressure. She remains on a low dose norepinephrine infusion running at 0.04-respiratory KG per minute. She also has an acute kidney injury and a component of non-anion gap metabolic acidosis. Based on that, I gave her 2 A of sodium bicarbonate total of 100 mEq and the patient was also started on abicarb infusion. This improved her non-anion gap metabolic acidosis. The serum bicarb today is up to 24. Creatinine is at 1.6 with a BUN of 82. The patient meanwhile went into atrial fibrillation again with rapid ventricular response. Based on her hypotension, I opted to start the patient on amiodarone. I loaded her with a total of 150 mg of amiodarone bolus and I'm going to load completely over the next 24 hours. She is also on IV cefepime as an empiric antibiotic coverage. She is completed a course of Remdesivir ,, convalescent plasma 1 and the patient is also been on Decadron 6 mg every 24 hours. Reevaluated today on 01/26/20, patient remains in the ICU, intubated and mechanically ventilated. Ventilator settings are assist control rate of 18 tidal volume 450 FiO2 50% PEEP is 12. I did cut down the PEEP to 10 and increase the rate to 20. ABG today showed a pO2 of 98 pCO2 of 46 pH of 7.30. Patient is on IV fluid at 75 mL per hour, propofol at 40 mcg/kg/m, norepinephrine at 0.01 mcg/kg/m, amiodarone 0.5 mg per hour, patient is on Lovenox and on cefepime. Patient has a right subclavian triple-lumen catheter, and a right radial arterial line. Patient did receive 1 unit of convalescent plasma, and receivedremdesivir. Chest x-ray continues to show increase infiltrates with possibly a small left pleural effusion infiltrates are noted bilaterally., WBC count is 11.3 hemoglobin is 8.5. D-dimer is 9.45. BUN is 80 creatinine 1.29. I's are normal. LDH is 02/28/2007 and C-reactive protein is 45.6 Patient was reevaluated today on 01/20/20, remains in the ICU, remains intubated and mechanically ventilated. Ventilator settings are assist control rate of 20 tidal volume is 450 FiO2 is 50% and PEEP of 10. ABG showed a pO2 of 83 pCO2 of 40 pH of 7.37. Patient is on IV fluid at 50 mL per hour 0.9 normal saline on propofol at 40 mcg/kg/m, she is on tube feeding, and today I increased the PEEP down to 8. I plan to give the patient a weaning trial possibly with a pressure support of 8 and CPAP depending on her weaning. I have instructed that we hold propofol, assess weaning parameters, and proceed accordingly. Chest x-ray continues to show evidence of bilateral airspace disease, slight improvement compared to previous x-rays. CBC noted WBC count is 10 hemoglobin is 8.4 electrodes are normal renal profile showed a BUN of 80 creatinine of 1.05 Reevaluated today on 01/21/20, patient remains in the ICU, intubated and mechanically ventilated. Ventilator settings are assist control rate of 20 tidal volume is 450 FiO2 is 55% and PEEP is 12. Went ahead after reviewing the ABG on cut down the FiO2 to 50%. ABG showed a pO2 of 95 pCO2 of 42 pH of 7.38. Chest x-ray continues to show bilateral infiltrates, however the right side seems to be more affected than the left side. Patient remains on propofol at 40 mcg/kg/m, she is on enteral feeding, IV fluids at KVO, and remains on oral amiodarone, also remains on Lovenox. Patient was actually intubated on 01/15. Labs today showed relatively normal CBC, hemoglobin is 8.7. Electrolytes are normal except for bicarb of 21 chloride is 120 and potassium is 5.3. BUN is noted to be 80 and creatinine is 0.73. Hence her fluid was increased Reevaluated today on 01/22/20, patient remains in the ICU, intubated and mechanically ventilated. She is presently on assist control rate of 20 tidal volume is 450 FiO2 is 50% PEEP is 12. ABG showed a pO2 of 98 pCO2 of 42 pH of 7.40. Patient remains on propofol at 40 mcg/kg/m, I have recommended cutting the PEEP down to 8, Sats 50%, and I plan to give the patient hopefully today. Trial of pressure support and CPAP. Chest x-ray is basically unchanged compared to the chest x-ray yesterday, does have some infiltrates mostly in the right lung. Left lung seems to be less involved. WBC count today is 10.4 hemoglobin is 8.4, d-dimer is 4.5 to remains on therapeutic dose of Lovenox. Basic metabolic profile is normal. Patient remains on enteral feedings. Inflammatory markers are improving. Reevaluated today on 01/23/20, remains intubated and mechanically ventilated. Her assist control rate is 20 tidal volume is 450 FiO2 is 50% and PEEP is 8 ABG today showed a pO2 of 94 pCO2 of 40 pH of 7.42. Patient is on propofol at 10 mcg/kg/m, on tube feeding at goal, previously the patient failed sedation holiday, and she had to be placed on sedation and assist control mode of mechanical ventilation. Patient went into A. fib with RVR, last night, and today she is in A. fib but rate seems to be controlled. Her sodium is high today at 148, we'll try to corrected with increasing her free water intake, and we will likely awaken the patient today and possibly give her a trial of pressure support and CPAP. Chest x-ray is definitely showing some improvement in her scattered infiltrates. Compared to previous x-rays. Electrolytes were reviewed, her sodium is 148, and we'll try to corrected. Otherwise no significant abnormality on her labs WBC count is 11.2 hemoglobin is 8.4. Reevaluated today on 01/24/20, patient remains off sedation for the last 24 hours. However she remains vented, ventilator settings are assist control rate of 20 tidal volume is 450 FiO2 is 50% and PEEP of 8. ABG showed a pO2 of 91 pCO2 of 40 pH of 7.45. Patient is requiring clevidipine at 5 mg per hour. I was able to cut down her PEEP down to 5. Since her pO2 was 91. I recommended that we continue to hold sedation, however few hours later the patient became extremely agitated, had to give her Ativan, did not seem to control her agitation, and she did not seem to be appropriate, she was just agitated and thrashing coming asynchronous with the ventilator. Hence I recommended that she goes back on propofol. No chest x-ray done today. CBC showed a hemoglobin of 7.2 otherwise unremarkable. Sodium is down to 146, basic metabolic profile otherwise is normal. Patient was reevaluated today on 01/25/20. Remains in the ICU, intubated and mechanically ventilated. Her ventilator settings are assist control rate of 20 FiO2 is 70% PEEP was at 5, volume is 4. Tidal volume is 450 ABG today showed a pO2 of 87 pCO2 of 39 pH of 7.44. Yesterday patient was given a trial of weaning, however she became extremely restless and agitated. Had to be placed back on propofol, and she is now back on propofol at 10 mcg/kg/m. She is not requiring any pressors. She is on enteral feeding. And her hemoglobin today is noted to be low at 6.4, and I'm recommending a unit of packed RBCs to be transfused. She seems to be overusing blood from the site of the right subclavian triple-lumen catheter, went ahead and cut down her Lovenox to 60 mg subcu every 12 hours instead of 80 mg subcu every 12 hours. Chest x-ray, showed worsening bilateral multifocal infiltrates. And obviously the patient is not ready to be weaned again today. Hence I have increased her PEEP back to 10, and I plan to titrate her FiO2 down to 55% if possible. Discussed her condition wi th the today, and updated him on her status. Explained time that she is not ready to be weaned, and she will be kept sedated today. On 02/08/2020, the patient's condition has been worse and she is obviously decompensated. She became progressively more restless and agitated and asynchronous mechanical ventilator. The patient started losing volumes on the mechanical ventilator and the patient also became progressively more hypoxic. At a time of my arrival, the patient was breathing in the 40s, she's was not returning her volumes back and she was also running fever. The blood gases from today showed a pH of 7.55 with a pCO2 of 40 and pO2 of 55 and this was done on a VAC plus mode with a tidal volume of 650 and a PEEP of 8 with an FiO2 of 60% and at a time of 14. The chest x-ray from today shows no major interval change compared to the earlier chest x-ray. The tracheostomy tube is in a good location. The patient has bilateral pulmonary infiltrates mainly in the upper lobes and in the lower lobes and these findings are essentially unchanged compared to yesterday's chest x-ray. No significant orotracheal secretions. Her temperature max was at 102.4. The patient has no triple-lumen catheter. The patient is a PICC line in the right upper extremity. She has a Qureshi catheter. She has a left radial arterial line. She is receiving bolus feeding for nutritional support. She is on Lovenox 90 mg subcu every 12 hours regarding a previous history of pulmonary embolism. She is on no pressors for now. Based on this decompensation, the patient was started back comfortable for which is running at 20 mcg/kg per minute. Morning hemoglobin down to 6.7 from 7.1. Note that the patient's has shown no signs of any GI bleeding. A unit of packed RBC was ordered for this patient. S4 mental status, the patient was taken off the sedation for approximately 48 hours. She was opening her eyes. She was grimacing. She was still not following any commands and I did not see any recovery or significant recovery in her mentation while being off sedation. Is doing some grimacing to deep painful stimulation. Reevaluated today on 02/09/20, patient remains intubated and mechanically ventilated, she has a trach and PEG tube in place, patient underwent tracheostomy and PEG tube placement on 02/14/20, she is now on pressure control mode of mechanical ventilation, pressure is 22, rate is set at 26. Inspiratory time is 1 second. She is on 60% FiO2, she is on propofol at 55 mcg/kg/m, fentanyl 1 mcg/kg/h, and she is also on amiodarone at 1 mg drip. Patient is receiving bolus feedings. 150 ML every 4 hours, and she has free water flushes given. Remains on cefepime and vancomycin. Her urine output is marginal, hence I recommended a fluid bolus and if no improvement to be given Lasix. However the nurses changed her Qureshi, and she was able to put out at least a liter with Qureshi placement. Added Solu-Medrol 60 mg IV push every 6 hours. Chest x-ray continues to show diffuse interstitial infiltrates bilaterally. ABG today showed a pO2 of 64 pCO2 of 48 pH of 7.44 this is on FiO2 of 60%. CBC showed WBC count of 8 hemoglobin is 7.6. Basic metabolic profile is relatively normal. Pro-calcitonin is elevated at 0.32. Hence antibiotics will be continued Patient was reevaluated today on 02/10/20, remains in the ICU, intubated and mechanically ventilated. Her ventilator settings are pressure control set at 22, rate is 26, FiO2 is 60%, and PEEP of 12. Inspiratory time is 1 second. ABG today showed a pO2 of 67 pCO2 of 48 pH of 7.42. Patient is still on amiodarone at 0.5 mg/m, norepinephrine at 0.02 mcg/kg/h, propofol at 30 mcg/kg/m, and fentanyl 20 mcg/kg/h. Patient is quite sedated, unable to assess mental status, however I do plan to hold sedation today, and assess mental status at least briefly. Patient has been receiving treatment for urinary tract infection, and I will go ahead and discontinue vancomycin, and continue cefepime repeat urine cultures were ordered patient remains on bolus tube feeding, receiving vital HPI at 170 ML every 6 hours plus free water flushes every 4 hours. Chest x-ray continues to show diffuse interstitial infiltrates bilaterally. Much improvement noted on the chest x-ray. Reevaluated today on 02/11/20, patient remains in the ICU, intubated and mechanically ventilated, patient is receiving mechanical ventilation through tracheostomy. And she is receiving enteral feeding through PEG tube. Her vent ilator settings are pressure control set at 22, rate is 26, FiO2 is 60% and PEEP is 12. ABG showed a pO2 of 78 pCO2 of 53 pH of 7.40. Patient is on propofol at 30 mcg/kg/m, IV fluid to KVO, fentanyl 12 mcg/kg/m, she is not requiring any pressors, she is hemodynamically stable. Try today to discontinue sedation and assessment of sinus, however off fentanyl and on propofol, patient was noted to be extremely agitated, restless, could not follow any instructions, her blood pressure was over 200 systolic, and could not get the patient to respond to any stimuli. Tried patient on Nimbex, did not seem to do well, continued to desaturate on Nimbex, and she was agonal with mechanical ventilation. Hence the patient back on propofol, and will decide on the dose of fentanyl possibly cutting down significantly. Chest x-ray continues to show diffuse interstitial infiltrates, not much change since admission. Reevaluated today on 02/12/20, patient remains on mechanical ventilation, she is on pressure control mode of mechanical ventilation, pressure is set at 22, rate is 26, inspiratory time was cut down from 1-0.8, her FiO2 is 80%, PEEP is at 12. ABG showed a pO2 of 96 pCO2 46 pH of 7.48. Patient is on propofol at 50 mcg/kg/m, IV fluid at KVO, she is also on clevidipine for elevated blood pressure at 3 mg per hour. Patient is on bolus feedings, failed sedation yesterday miserably, and today she remains extremely restless agitated even with 50 mcg/kg off propofol. Hence the dose will be increased. Patient is on Dilaudid when necessary. Will go ahead and give the patient a trial of Seroquel today, and hopefully cut down on propofol. We will also arrange for a CT of the brain, and I have asked the nurses to titrate her FiO2 down and maintain O2 saturation above 90%. Brain CT showed no acute intracranial process, chest x- ray continues to show diffuse interstitial infiltrates, right more so than left. CBC today is relatively normal electrolytes are normal renal profile is normal. Objective - Vital Signs Vital signs: Vital Signs Temp 98.1 F 02/12/20 12:00 Pulse 63 02/12/20 12:00 Resp 27 H 02/12/20 12:00 BP 111/66 02/10/20 19:00 Pulse Ox 93 L 02/12/20 12:00 Intake & Output 02/11/20 02/12/20 02/12/20 18:59 06:59 18:59 Intake Total 1312.923 927.485 706.343 Output Total 1615 1225 1625 Balance -302.077 -297.515 -918.657 Weight 84.5 kg 84.8 kg Intake: IV 396 300 188 .9 @ KVO 360 250 120 Cefepime 1 gm In Sodium 50 Chloride 0.9% 50 ml @ 12. 5 mls/hr IVPB Q12HR [facility] Rx#:[id number] pressure bags 36 50 18 Intake, IV Titration 376.923 317.485 208.343 Amount Clevidipine Butyrate 25 11.233 38.767 9.9 mg In Empty Bag 1 bag @ 1 MG/HR 2 mls/hr IV .Q24H [facility] Rx#:[id number] Dexmedetomidine/0.9% NaCl 5.634 (Pmx) 400 mcg In Empty Bag 1 bag @ Titrate IV . Q0M [facility] Rx#:[id number] Fluconazole in NaCl,Iso- 100 Osm 200 mg In Saline 1 100ml.bag @ 100 mls/hr IVPB DAILY@1600 [facility] Rx#: [id number] fentaNYL (PF) 1,000 mcg 90.09 In Sodium Chloride 0.9% 80 ml @ Per Protocol IV . Q0M [facility] Rx#:[id number] propofoL 1,000 mg In 169.966 278.718 198.443 Empty Bag 1 bag @ Titrate IV .Q0M [facility] Rx#: [id number] Oral 30 Tube Feeding 450 250 220 Other 90 60 60 Output: Urine 1615 1225 1625 Other: Voiding Method Indwelling Catheter Indwelling Catheter # Bowel Movements 1 ABP, PAP, CO, CI - Last Documented Arterial Blood Pressure 110/48 - Exam GENERAL EXAM: Revealed 79-year-old female intubated, on mechanical ventilation. HEAD: Atraumatic, normocephalic. Tracheostomy is intact. HEENT: PERRLA, EOMI, no icterus, no neck masses, no JVD, no stridor. Moist mucous membranes. .CHEST: No chest wall deformity. LUNGS: Crackles noted bilaterally more so at the right base. Symmetrical chest expansion. CVS: Irregular rhythm, no S3 gallop. ABDOMEN: No hepatosplenomegaly, normal bowel sounds, no guarding or rigidity. PEG tube is intact SPINE: No scoliosis or deformity SKIN: No rashes CENTRAL NERVOUS SYSTEM: Cannot assess, on propofol, yesterday could not assess her mental status even off propofol. EXTREMITIES: No clubbing, trace of bipedal edema, no cyanosis. - Labs CBC & Chem 7: 02/12/20 06:30 02/12/20 06:30 Labs: Abnormal Lab Results - Last 24 Hours (Table) 02/11/20 02/11/20 02/12/20 Range/Units 17:27 23:42 04:21 RBC (3.80-5.40) m/uL Hgb (11.4-16.0) gm/dL Hct (34.0-46.0) % RDW (11.5-15.5) % Plt Count (150-450) k/uL Neutrophils # (1.3-7.7) k/uL Lymphocytes # (1.0-4.8) k/uL ABG pH 7.48 H (7.35-7.45) ABG pCO2 46 H (35-45) mmHg ABG HCO3 35 H (21-25) mmol/L ABG Total CO2 36 H (19-24) mmol/L ABG O2 Saturation 97.8 H (94-97) % Potassium (3.5-5.1) mmol/L Carbon Dioxide (22-30) mmol/L BUN (7-17) mg/dL Creatinine (0.52-1.04) mg/dL Glucose (74-99) mg/dL POC Glucose (mg/dL) 173 H 167 H (75-99) mg/dL Total Protein (6.3-8.2) g/dL Albumin (3.5-5.0) g/dL 02/12/20 02/12/20 02/12/20 Range/Units 06:26 06:30 06:30 RBC 3.13 L (3.80-5.40) m/uL Hgb 9.6 L (11.4-16.0) gm/dL Hct 30.4 L (34.0-46.0) % RDW 16.1 H (11.5-15.5) % Plt Count 530 H (150-450) k/uL Neutrophils # 8.9 H (1.3-7.7) k/uL Lymphocytes # 0.7 L (1.0-4.8) k/uL ABG pH (7.35-7.45) ABG pCO2 (35-45) mmHg ABG HCO3 (21-25) mmol/L ABG Total CO2 (19-24) mmol/L ABG O2 Saturation (94-97) % Potassium 3.2 L (3.5-5.1) mmol/L Carbon Dioxide 35 H (22-30) mmol/L BUN 42 H (7-17) mg/dL Creatinine 0.43 L (0.52-1.04) mg/dL Glucose 153 H (74-99) mg/dL POC Glucose (mg/dL) 170 H (75-99) mg/dL Total Protein 5.3 L (6.3-8.2) g/dL Albumin 2.4 L (3.5-5.0) g/dL 02/12/20 02/12/20 02/12/20 Range/Units 06:52 08:43 11:09 RBC (3.80-5.40) m/uL Hgb (11.4-16.0) gm/dL Hct (34.0-46.0) % RDW (11.5-15.5) % Plt Count (150-450) k/uL Neutrophils # (1.3-7.7) k/uL Lymphocytes # (1.0-4.8) k/uL ABG pH (7.35-7.45) ABG pCO2 (35-45) mmHg ABG HCO3 (21-25) mmol/L ABG Total CO2 (19-24) mmol/L ABG O2 Saturation (94-97) % Potassium (3.5-5.1) mmol/L Carbon Dioxide (22-30) mmol/L BUN (7-17) mg/dL Creatinine (0.52-1.04) mg/dL Glucose (74-99) mg/dL POC Glucose (mg/dL) 150 H 154 H 189 H (75-99) mg/dL Total Protein (6.3-8.2) g/dL Albumin (3.5-5.0) g/dL Microbiology - Last 24 Hours (Table) 02/08/20 08:53 Blood Culture - Preliminary Blood No Growth after 96 hours 02/11/20 00:41 Gram Stain - Preliminary Sputum Sputum Culture - Preliminary Jodie albicans 02/10/20 10:30 Urine Culture - Final Urine,Catheterized Jodie albicans Assessment and Plan Assessment: Impression: Acute hypoxic respiratory failure with bilateral pneumonia and ARDS. secondary to Covid 19 pneumonitis. Acute right sided pulmonary embolism and hypercoagulability secondary to Covid 19 infection. . Recurrent atrial fibrillation, maintained on amiodarone. And on anticoagulations therapy. Remote history of deep vein thrombosis patient has been on Xarelto on outpatient basis. Acute kidney injury. Resolved since admission Elevated d-dimer. Hypercoagulable state. Contributing to her pulmonary embolism. Hypernatremia secondary to free water deficit. Resolved. Sodium is 142 today. Suspect acute toxic metabolic encephalopathy, related to her Covid [address] of the brain is nondiagnostic. Chronic anemia, multifactorial. Status post tracheostomy and PEG tube placement on 02/04/20 Recommendation: Continue ventilatory support., Continue pressure control mode of mechanical ventilation. Daily interruption of sedation and assessment of mental status Trial of Seroquel and hopefully cut down on propofol. Continue nutritional support. Via PEG. Patient is on bolus feedings. Continue anticoagulation therapy. Continue Covid 19 cocktail treatment. Continue amiodarone. Continue GI prophylaxis. Not quite ready for weaning Remains critically ill. continue cefepime. Repeat urine cultures. Continue Solu-Medrol. However will cut down the dose. Critical care time is over 30 minutes. Time with Patient: Greater than 30
[2020-02-12 17:52] LABS: Glucose,Whole Blood 154 mg/dL (75-99)
[2020-02-12] MEDS: MELATONIN 5 MG TABLET PO SCH (21:35)
[2020-02-12] MEDS: methylPREDNISolone SOD SUCCI 40 MG/ML 1 ML VIAL IV SCH (21:36)
[2020-02-13 00:24] LABS: Glucose,Whole Blood 135 mg/dL (75-99)
[2020-02-13] MEDS: INSULIN ASPART (NovoLOG) 100 UNIT/ML VIAL SQ SCH ×5 (00:45→23:49)
[2020-02-13] MEDS: HYDROmorphone 0.5 MG/0.5 ML SYRINGE IVP PRN ×3 (03:33→20:59)
[2020-02-13 05:11] LABS: Anisocytosis Slight; Basophils % (A) 0 %; Eosinophils % (A) 0 %; Hypochromasia Marked; Lymphocytes # (A) 0.7 k/uL (1.0-4.8); Lymphocytes % (A) 9 %; MCH 30.1 pg (25.0-35.0); MCHC 31.1 g/dL (31.0-37.0); MCV 96.8 fL (80.0-100.0); Macrocytosis Slight; Mean Platelet Volume 7.7; Monocytes # (A) 0.4 k/uL (0-1.0); Monocytes % (A) 5 %; Neutrophils # (A) 6.4 k/uL (1.3-7.7); Neutrophils % (A) 85 %; Platelet Count 469 k/uL (150-450); Poikilocytosis Slight; RBC 2.68 m/uL (3.80-5.40); RDW 16.4 % (11.5-15.5); WBC 7.5 k/uL (3.8-10.6)
[2020-02-13 05:18] LABS: HGB 8.1 gm/dL (11.4-16.0)
[2020-02-13 05:20] LABS: ALT 18 U/L (4-34); AST 23 U/L (14-36); African American GFR (CKD) >90 (>60 ml/min/1.73 sqM); Albumin 1.9 g/dL (3.5-5.0); Alkaline Phosphatase 74 U/L (38-126); Anion Gap -4 mmol/L; Blood Urea Nitrogen 46 mg/dL (7-17); Calcium 7.8 mg/dL (8.4-10.2); Carbon Dioxide 39 mmol/L (22-30); Chloride 105 mmol/L (98-107); Glucose 141 mg/dL (74-99); Magnesium 1.8 mg/dL (1.6-2.3); Non-African American GFR(CKD) >90 (>60 ml/min/1.73 sqM); Potassium 3.6 mmol/L (3.5-5.1); Sodium 140 mmol/L (137-145); Total Bilirubin 0.4 mg/dL (0.2-1.3); Total Protein 4.1 g/dL (6.3-8.2)
[2020-02-13 05:59] LABS: ABG Base Excess 14.3 mmol/L; ABG HCO3 38 mmol/L (21-25); ABG PCO2 56 mmHg (35-45); ABG PH 7.45 (7.35-7.45); ABG PO2 119 mmHg (83-108); ABG TCO2 40 mmol/L (19-24); Allen Test Performed? Yes
[2020-02-13] MEDS ORDERED: POTASSIUM BICARBONATE/CIT AC 20 MEQ TABLET.EFF NG-TUBE SCH (06:00)
[2020-02-13 06:27] LABS: Glucose,Whole Blood 150 mg/dL (75-99)
[2020-02-13] MEDS: NOREPINEPHRINE 4 MG in SODIUM CHLORIDE 0.9% 250 ML IV SCH (06:27)
[2020-02-13] MEDS: MAGNESIUM SULFATE-D5W PMX 1 GM in DEXTROSE/WATER 1 100ML.BAG IVPB SCH ×2 (06:30→08:41)
[2020-02-13] MEDS: ALBUTEROL HFA INHALER INHALATION SCH ×4 (07:56→20:36)
[2020-02-13] MEDS: FAMOTIDINE 20 MG TAB PO SCH (08:41)
[2020-02-13] MEDS: CHOLECALCIFEROL 1,000 UNIT TAB PO SCH (08:41)
[2020-02-13] MEDS: FUROSEMIDE 10 MG/ML 4 ML VIAL IV SCH (08:41)
[2020-02-13] MEDS: METOPROLOL TARTRATE 50 MG TAB PO SCH ×2 (08:41→20:58)
[2020-02-13] MEDS: CHLORHEXIDINE GLUCONATE 15 ML CUP MUCOUS MEM SCH ×2 (08:41→20:58)
[2020-02-13] MEDS: AMIODARONE 200 MG TAB PO SCH (08:41)
[2020-02-13] MEDS: ZINC SULFATE 220 MG CAP PO SCH (08:41)
[2020-02-13] MEDS: ASCORBIC ACID 500 MG TAB PO SCH (08:41)
[2020-02-13] MEDS: ENOXAPARIN 100 MG/ML SYRINGE SQ SCH ×2 (08:42→20:58)
[2020-02-13] MEDS: QUEtiapine 50 MG TAB PO SCH ×2 (08:43→21:42)
[2020-02-13] MEDS: CEFEPIME 1 GM in SODIUM CHLORIDE 0.9% 50 ML IVPB SCH ×2 (08:45→20:59)
[2020-02-13] MEDS: methylPREDNISolone SOD SUCCI 40 MG/ML 1 ML VIAL IV SCH ×2 (08:46→20:58)
[2020-02-13] MEDS: INSULIN DETEMIR (LEVEMIR) 100 UNIT/ML SYR SQ SCH ×2 (08:46→20:59)
--- NOTE | 2020-02-13 09:09 | XR ---
EXAMINATION TYPE: XR chest 1V portable DATE OF EXAM: 02/13/2020 COMPARISON: 02/12/2020 INDICATION: Tracheostomy TECHNIQUE: Single frontal view of the chest is obtained. FINDINGS: The heart size is normal. The pulmonary vasculature is normal. Diffuse increased lung markings are present bilaterally Tracheostomy tube is present with tip above the ollie. IMPRESSION: 1. Improving bilateral lung infiltrates. 2. Tracheostomy tube
[2020-02-13] MEDS: CLEVIDIPINE BUTYRATE 25 MG in EMPTY BAG 1 BAG IV SCH (10:16)
--- NOTE | 2020-02-13 10:29 | P.PN ---
Subjective Progress Note Date: 02/13/20 Principal diagnosis: COVID pneumonia Patient has been the same, no changes overnight. Did very poorly according to pulmonary service when tried off sedation. Objective - Vital Signs Vital signs: Vital Signs Temp 97.3 F L 02/13/20 08:00 Pulse 72 02/13/20 09:00 Resp 25 H 02/13/20 09:00 BP 111/66 02/10/20 19:00 Pulse Ox 95 02/13/20 09:00 Intake & Output 02/12/20 02/13/20 02/13/20 18:59 06:59 18:59 Intake Total 1164.668 976.005 560.610 Output Total 2125 730 130 Balance -960.332 246.005 430.610 Intake: IV 449 273 169 .9 @ KVO 260 190 60 Cefepime 1 gm In Sodium 50 50 100 Chloride 0.9% 50 ml @ 12. 5 mls/hr IVPB Q12HR [facility] Rx#:[id number] Fluconazole in NaCl,Iso- 100 Osm 200 mg In Saline 1 100ml.bag @ 100 mls/hr IVPB DAILY@1600 [facility] Rx#: [id number] pressure bags 39 33 9 Intake, IV Titration 265.668 193.005 231.610 Amount Clevidipine Butyrate 25 9.9 mg In Empty Bag 1 bag @ 1 MG/HR 2 mls/hr IV .Q24H [facility] Rx#:[id number] Magnesium Sulfate-D5w Pmx 100 1 gm In Dextrose/Water 1 100ml.bag @ 100 mls/hr IVPB Q1H [facility] Rx#: [id number] propofoL 1,000 mg In 255.768 193.005 131.610 Empty Bag 1 bag @ Titrate IV .Q0M [facility] Rx#: [id number] Oral 30 Tube Feeding 330 330 110 Other 90 180 50 Output: Urine 2125 730 130 Other: Voiding Method Indwelling Catheter Indwelling Catheter Indwelling Catheter ABP, PAP, CO, CI - Last Documented Arterial Blood Pressure 92/51 - Exam General: [non toxic], [no distress, sedated on mechanical ventilation], [appears older than age] Derm: [warm], [dry] Head: [atraumatic], [normocephalic], [symmetric] Eyes: [EOMI], [no lid lag], [anicteric sclera] Mouth: [no lip lesion], [mucus membranes moist] Cardiovascular: [S1S2 reg], [no murmur], [positive posterior tibial pulse bilateral], Lungs: [CTA bilateral], [no rhonchi, no rales] , [no accessory muscle use] Abdominal: [soft], [ nontender to palpation], [no guarding], [no appreciable organomegaly] Ext: [no gross muscle atrophy], [+1edema], [no contractures] Neuro: [ CN II-XI grossly intact], [no focal neuro deficits] Psych: Sedated - Labs CBC & Chem 7: 02/13/20 04:30 02/13/20 04:30 Labs: Abnormal Lab Results - Last 24 Hours (Table) 02/12/20 02/12/20 02/12/20 Range/Units 11:09 17:51 20:31 RBC (3.80-5.40) m/uL Hgb (11.4-16.0) gm/dL Hct (34.0-46.0) % RDW (11.5-15.5) % Plt Count (150-450) k/uL Lymphocytes # (1.0-4.8) k/uL ABG pCO2 (35-45) mmHg ABG pO2 (83-108) mmHg ABG HCO3 (21-25) mmol/L ABG Total CO2 (19-24) mmol/L ABG O2 Saturation (94-97) % Potassium 3.2 L (3.5-5.1) mmol/L Carbon Dioxide (22-30) mmol/L BUN (7-17) mg/dL Creatinine (0.52-1.04) mg/dL Glucose (74-99) mg/dL POC Glucose (mg/dL) 189 H 154 H (75-99) mg/dL Calcium (8.4-10.2) mg/dL Total Protein (6.3-8.2) g/dL Albumin (3.5-5.0) g/dL 02/13/20 02/13/20 02/13/20 Range/Units 00:23 04:30 04:30 RBC 2.68 L (3.80-5.40) m/uL Hgb 8.1 L D (11.4-16.0) gm/dL Hct 26.0 L (34.0-46.0) % RDW 16.4 H (11.5-15.5) % Plt Count 469 H (150-450) k/uL Lymphocytes # 0.7 L (1.0-4.8) k/uL ABG pCO2 (35-45) mmHg ABG pO2 (83-108) mmHg ABG HCO3 (21-25) mmol/L ABG Total CO2 (19-24) mmol/L ABG O2 Saturation (94-97) % Potassium (3.5-5.1) mmol/L Carbon Dioxide 39 H (22-30) mmol/L BUN 46 H (7-17) mg/dL Creatinine 0.35 L (0.52-1.04) mg/dL Glucose 141 H (74-99) mg/dL POC Glucose (mg/dL) 135 H (75-99) mg/dL Calcium 7.8 L (8.4-10.2) mg/dL Total Protein 4.1 L (6.3-8.2) g/dL Albumin 1.9 L (3.5-5.0) g/dL 02/13/20 02/13/20 Range/Units 05:57 06:25 RBC (3.80-5.40) m/uL Hgb (11.4-16.0) gm/dL Hct (34.0-46.0) % RDW (11.5-15.5) % Plt Count (150-450) k/uL Lymphocytes # (1.0-4.8) k/uL ABG pCO2 56 H (35-45) mmHg ABG pO2 119 H (83-108) mmHg ABG HCO3 38 H (21-25) mmol/L ABG Total CO2 40 H (19-24) mmol/L ABG O2 Saturation 100.0 H (94-97) % Potassium (3.5-5.1) mmol/L Carbon Dioxide (22-30) mmol/L BUN (7-17) mg/dL Creatinine (0.52-1.04) mg/dL Glucose (74-99) mg/dL POC Glucose (mg/dL) 150 H (75-99) mg/dL Calcium (8.4-10.2) mg/dL Total Protein (6.3-8.2) g/dL Albumin (3.5-5.0) g/dL Microbiology - Last 24 Hours (Table) 02/08/20 08:53 Blood Culture - Preliminary Blood No Growth after 96 hours 02/11/20 00:41 Gram Stain - Preliminary Sputum Sputum Culture - Preliminary Jodie albicans 02/10/20 10:30 Urine Culture - Final Urine,Catheterized Jodie albicans Assessment and Plan Plan: Covid 19 pneumonia with acute hypoxic respiratory failure, ARDS - Failing weaning trials, now with trach/peg 02/03 - Completed Remdesivir on 01/15 - Completed 10 days course of Decadron 6 mg now back on IV Solu-Medrol managed by ICU team - Status post convalescent plasma 01/14 - Continue zinc, vitamin C, vitamin D, Pepcid, and melatonin - On cefepmine day [address] head showed nothing acute Seroquel increased by ICU team to try to cut down on propofol. Anemia, multifactorial thrombocytopenia, likely reactive - 2 units pRBC since admission DIffuse Anasarca - IV Lasix managed by ICU team Pulmonary embolus without right ventricular strain, history of prior DVT - Lovenox A fib with RVR - lovenox, amio Hypertensive urgency On clevedipine gtt Entercoccus and E coli UTI resolved now with jodie in the urine and sputum -Status post treatment with Levaquin, stop date 01/31 -Diflucan started Thrombocytopenia KALYAN due to ATN with resultant metabolic acidosis and hyperphosphatemia, resolved Septic shock, resolved Hypokalemia, resolved D/W Dr. Chicas today, is getting angry about any attempts to make patient comfort care. He gets suspicious about any phone calls received from the hospital. DVT prophylaxis: Lovenox for PE Discussed with: Nursing, ICU team Anticipated discharge: 3-[address]: [facility]
[2020-02-13 11:36] LABS: Glucose,Whole Blood 190 mg/dL (75-99)
--- NOTE | 2020-02-13 12:38 | P.PN ---
Subjective Progress Note Date: 02/13/20 CHIEF COMPLAINT: Covid 19 pneumonia HISTORY OF PRESENT ILLNESS: Patient remains in the ICU and on mechanical ventilation and is sedated. Patient is status post trach and PEG tube placement. Patient is currently tolerating bolus tube feedings. They're trying to wean patient off of sedation. Seroquel was added yesterday. Patient has been having intermittent leaking from trach cuff. Patient is afebrile. WBC 7.5 PHYSICAL EXAM: VITAL SIGNS: Reviewed. GENERAL: Well-developed in no acute distress. HEENT: No sclera icterus. Extraocular movements grossly intact. Moist buccal mucosa. Head is atraumatic, normocephalic. Tracheostomy site clean dry and intact ABDOMEN: Soft. Nondistended. Nontender. PEG tube site clean dry and intact NEUROLOGIC: Patient is intubated and sedated ASSESSMENT: 1. Acute hypoxic respiratory failure status post tracheostomy placement 2. Severe protein calorie malnutrition status post PEG tube placement 3. Acute hypoxic respiratory failure with Covid 19 pneumonia and pulmonary embolism 4. Intermittent tracheostomy cuff leaking PLAN: -Continue tube feedings -Continue supportive care -We'll continue to observe tracheostomy cuff Physician [employer] Technician note has been reviewed by physician. Signing provider agrees with the documented findings, assessment, and plan of care. Objective - Vital Signs Vital signs: Vital Signs Temp 96.8 F L 02/13/20 12:00 Pulse 71 02/13/20 12:00 Resp 20 02/13/20 12:00 BP 111/66 02/13/20 11:00 Pulse Ox 95 02/13/20 12:00 Intake & Output 02/12/20 02/13/20 02/13/20 18:59 06:59 18:59 Intake Total 1164.668 976.005 769.610 Output Total 2125 730 955 Balance -960.332 246.005 -185.390 Intake: IV 449 273 238 .9 @ KVO 260 190 120 Cefepime 1 gm In Sodium 50 50 100 Chloride 0.9% 50 ml @ 12. 5 mls/hr IVPB Q12HR [facility] Rx#:[id number] Fluconazole in NaCl,Iso- 100 Osm 200 mg In Saline 1 100ml.bag @ 100 mls/hr IVPB DAILY@1600 [facility] Rx#: [id number] pressure bags 39 33 18 Intake, IV Titration 265.668 193.005 231.610 Amount Clevidipine Butyrate 25 9.9 mg In Empty Bag 1 bag @ 1 MG/HR 2 mls/hr IV .Q24H [facility] Rx#:[id number] Magnesium Sulfate-D5w Pmx 100 1 gm In Dextrose/Water 1 100ml.bag @ 100 mls/hr IVPB Q1H [facility] Rx#: [id number] propofoL 1,000 mg In 255.768 193.005 131.610 Empty Bag 1 bag @ Titrate IV .Q0M [facility] Rx#: [id number] Oral 30 Tube Feeding 330 330 220 Other 90 180 80 Output: Urine 2125 730 955 Other: Voiding Method Indwelling Catheter Indwelling Catheter Indwelling Catheter ABP, PAP, CO, CI - Last Documented Arterial Blood Pressure 135/65 - Labs CBC & Chem 7: 02/13/20 04:30 02/13/20 04:30 Labs: Abnormal Lab Results - Last 24 Hours (Table) 02/12/20 02/12/20 02/13/20 Range/Units 17:51 20:31 00:23 RBC (3.80-5.40) m/uL Hgb (11.4-16.0) gm/dL Hct (34.0-46.0) % RDW (11.5-15.5) % Plt Count (150-450) k/uL Lymphocytes # (1.0-4.8) k/uL ABG pCO2 (35-45) mmHg ABG pO2 (83-108) mmHg ABG HCO3 (21-25) mmol/L ABG Total CO2 (19-24) mmol/L ABG O2 Saturation (94-97) % Potassium 3.2 L (3.5-5.1) mmol/L Carbon Dioxide (22-30) mmol/L BUN (7-17) mg/dL Creatinine (0.52-1.04) mg/dL Glucose (74-99) mg/dL POC Glucose (mg/dL) 154 H 135 H (75-99) mg/dL Calcium (8.4-10.2) mg/dL Total Protein (6.3-8.2) g/dL Albumin (3.5-5.0) g/dL 02/13/20 02/13/20 02/13/20 Range/Units 04:30 04:30 05:57 RBC 2.68 L (3.80-5.40) m/uL Hgb 8.1 L D (11.4-16.0) gm/dL Hct 26.0 L (34.0-46.0) % RDW 16.4 H (11.5-15.5) % Plt Count 469 H (150-450) k/uL Lymphocytes # 0.7 L (1.0-4.8) k/uL ABG pCO2 56 H (35-45) mmHg ABG pO2 119 H (83-108) mmHg ABG HCO3 38 H (21-25) mmol/L ABG Total CO2 40 H (19-24) mmol/L ABG O2 Saturation 100.0 H (94-97) % Potassium (3.5-5.1) mmol/L Carbon Dioxide 39 H (22-30) mmol/L BUN 46 H (7-17) mg/dL Creatinine 0.35 L (0.52-1.04) mg/dL Glucose 141 H (74-99) mg/dL POC Glucose (mg/dL) (75-99) mg/dL Calcium 7.8 L (8.4-10.2) mg/dL Total Protein 4.1 L (6.3-8.2) g/dL Albumin 1.9 L (3.5-5.0) g/dL 02/13/20 02/13/20 Range/Units 06:25 11:34 RBC (3.80-5.40) m/uL Hgb (11.4-16.0) gm/dL Hct (34.0-46.0) % RDW (11.5-15.5) % Plt Count (150-450) k/uL Lymphocytes # (1.0-4.8) k/uL ABG pCO2 (35-45) mmHg ABG pO2 (83-108) mmHg ABG HCO3 (21-25) mmol/L ABG Total CO2 (19-24) mmol/L ABG O2 Saturation (94-97) % Potassium (3.5-5.1) mmol/L Carbon Dioxide (22-30) mmol/L BUN (7-17) mg/dL Creatinine (0.52-1.04) mg/dL Glucose (74-99) mg/dL POC Glucose (mg/dL) 150 H 190 H (75-99) mg/dL Calcium (8.4-10.2) mg/dL Total Protein (6.3-8.2) g/dL Albumin (3.5-5.0) g/dL Microbiology - Last 24 Hours (Table) 02/11/20 00:41 Gram Stain - Final Sputum Sputum Culture - Final Jodie albicans 02/08/20 08:53 Blood Culture - Preliminary Blood No Growth after 120 hours 02/10/20 10:30 Urine Culture - Final Urine,Catheterized Jodie albicans
--- NOTE | 2020-02-13 14:12 | P.PN ---
Subjective Progress Note Date: 02/13/20 Principal diagnosis: Acute hypoxic regular failure secondary to covid 19 related pneumonia. On today's evaluation of 01/12/2020, the patient is being seen in follow-up. As mentioned earlier, the patient was infected with jane virus Covid 19 and the patient had an acute Covid 19 related pneumonia with diffuse breath and pulmonary infiltrates. Subsequently, the patient had a CT angios of the chest that showed bilateral pulmonary infiltrates and groundglass opacities in add ition to pulmonary embolism involving mainly the right-sided pulmonary artery branches. Filling defect in the right pulmonary artery and segmental branches in addition to that there is a mild component of strain pattern. Nevertheless, tachycardic and short and a ejection fraction of 6065% and the patient had no enlargement of the right ventricle and there was no evidence of any pulmonary hypertension. Noted the patient oxidation is gradually gotten worse and currently the patient is on high flow oxygen at 6 L with an FiO2 of 85% and this was utilized to bring the saturation above 90%. The patient is on IV heparin with a therapeutic PTT of 58.7. Based on the acute jane virus Covid 19 i nfection, the patient had an LDH of 1455 and a CRP is at 47.9. The patient is having difficulty breathing with minimal amount of activity. Currently she is on bedrest. The patient has no pleurisy. No hemoptysis. Altered mentation. No other significant events overnight. Based on the worsening oxygenation, repeat chest x-ray was done and showed a patchy bilateral pulmonary infiltrates right more than left. No pleural effusion. The findings are essentially stable compared to yesterday's chest x-ray. On 01/18/2020, the patient remains intubated on a mechanical ventilator. This morning, the patient sedated with propofol and is calm and comfortable. Propofol is running at 50 mcg/kg per minute. The patient remained on assist control mode of ventilation. She is on a tidal volume of 451 and FiO2 of 50% with a PEEP of 12 and a rate of 14. The patient's blood gases showed a pH of 7.21 with episodes of 56 and pO2 of 126. The peak airway pressure is 30. The static airway pressure is 28. Chest x-ray remains unchanged. There is bilateral pulmonary infiltrates which remains essentially unchanged compared to yesterday. She has a triple lumen catheter. Her CVP is around 9. She did receive total of 2 L of IV fluids yesterday which both upper CVP and improved her blood pressure. She remains on a low dose norepinephrine infusion running at 0.04-respiratory KG per minute. She also has an acute kidney injury and a component of non-anion gap metabolic acidosis. Based on that, I gave her 2 A of sodium bicarbonate total of 100 mEq and the patient was also started on abicarb infusion. This improved her non-anion gap metabolic acidosis. The serum bicarb today is up to 24. Creatinine is at 1.6 with a BUN of 82. The patient meanwhile went into atrial fibrillation again with rapid ventricular response. Based on her hypotension, I opted to start the patient on amiodarone. I loaded her with a total of 150 mg of amiodarone bolus and I'm going to load completely over the next 24 hours. She is also on IV cefepime as an empiric antibiotic coverage. She is completed a course of Remdesivir ,, convalescent plasma 1 and the patient is also been on Decadron 6 mg every 24 hours. Reevaluated today on 01/26/20, patient remains in the ICU, intubated and mechanically ventilated. Ventilator settings are assist control rate of 18 tidal volume 450 FiO2 50% PEEP is 12. I did cut down the PEEP to 10 and increase the rate to 20. ABG today showed a pO2 of 98 pCO2 of 46 pH of 7.30. Patient is on IV fluid at 75 mL per hour, propofol at 40 mcg/kg/m, norepinephrine at 0.01 mcg/kg/m, amiodarone 0.5 mg per hour, patient is on Lovenox and on cefepime. Patient has a right subclavian triple-lumen catheter, and a right radial arterial line. Patient did receive 1 unit of convalescent plasma, and receivedremdesivir. Chest x-ray continues to show increase infiltrates with possibly a small left pleural effusion infiltrates are noted bilaterally., WBC count is 11.3 hemoglobin is 8.5. D-dimer is 9.45. BUN is 80 creatinine 1.29. I's are normal. LDH is 02/28/2007 and C-reactive protein is 45.6 Patient was reevaluated today on 01/20/20, remains in the ICU, remains intubated and mechanically ventilated. Ventilator settings are assist control rate of 20 tidal volume is 450 FiO2 is 50% and PEEP of 10. ABG showed a pO2 of 83 pCO2 of 40 pH of 7.37. Patient is on IV fluid at 50 mL per hour 0.9 normal saline on propofol at 40 mcg/kg/m, she is on tube feeding, and today I increased the PEEP down to 8. I plan to give the patient a weaning trial possibly with a pressure support of 8 and CPAP depending on her weaning. I have instructed that we hold propofol, assess weaning parameters, and proceed accordingly. Chest x-ray continues to show evidence of bilateral airspace disease, slight improvement compared to previous x-rays. CBC noted WBC count is 10 hemoglobin is 8.4 electrodes are normal renal profile showed a BUN of 80 creatinine of 1.05 Reevaluated today on 01/21/20, patient remains in the ICU, intubated and mechanically ventilated. Ventilator settings are assist control rate of 20 tidal volume is 450 FiO2 is 55% and PEEP is 12. Went ahead after reviewing the ABG on cut down the FiO2 to 50%. ABG showed a pO2 of 95 pCO2 of 42 pH of 7.38. Chest x-ray continues to show bilateral infiltrates, however the right side seems to be more affected than the left side. Patient remains on propofol at 40 mcg/kg/m, she is on enteral feeding, IV fluids at KVO, and remains on oral amiodarone, also remains on Lovenox. Patient was actually intubated on 01/15. Labs today showed relatively normal CBC, hemoglobin is 8.7. Electrolytes are normal except for bicarb of 21 chloride is 120 and potassium is 5.3. BUN is noted to be 80 and creatinine is 0.73. Hence her fluid was increased Reevaluated today on 01/22/20, patient remains in the ICU, intubated and mechanically ventilated. She is presently on assist control rate of 20 tidal volume is 450 FiO2 is 50% PEEP is 12. ABG showed a pO2 of 98 pCO2 of 42 pH of 7.40. Patient remains on propofol at 40 mcg/kg/m, I have recommended cutting the PEEP down to 8, Sats 50%, and I plan to give the patient hopefully today. Trial of pressure support and CPAP. Chest x-ray is basically unchanged compared to the chest x-ray yesterday, does have some infiltrates mostly in the right lung. Left lung seems to be less involved. WBC count today is 10.4 hemoglobin is 8.4, d-dimer is 4.5 to remains on therapeutic dose of Lovenox. Basic metabolic profile is normal. Patient remains on enteral feedings. Inflammatory markers are improving. Reevaluated today on 01/23/20, remains intubated and mechanically ventilated. Her assist control rate is 20 tidal volume is 450 FiO2 is 50% and PEEP is 8 ABG today showed a pO2 of 94 pCO2 of 40 pH of 7.42. Patient is on propofol at 10 mcg/kg/m, on tube feeding at goal, previously the patient failed sedation holiday, and she had to be placed on sedation and assist control mode of mechanical ventilation. Patient went into A. fib with RVR, last night, and today she is in A. fib but rate seems to be controlled. Her sodium is high today at 148, we'll try to corrected with increasing her free water intake, and we will likely awaken the patient today and possibly give her a trial of pressure support and CPAP. Chest x-ray is definitely showing some improvement in her scattered infiltrates. Compared to previous x-rays. Electrolytes were reviewed, her sodium is 148, and we'll try to corrected. Otherwise no significant abnormality on her labs WBC count is 11.2 hemoglobin is 8.4. Reevaluated today on 01/24/20, patient remains off sedation for the last 24 hours. However she remains vented, ventilator settings are assist control rate of 20 tidal volume is 450 FiO2 is 50% and PEEP of 8. ABG showed a pO2 of 91 pCO2 of 40 pH of 7.45. Patient is requiring clevidipine at 5 mg per hour. I was able to cut down her PEEP down to 5. Since her pO2 was 91. I recommended that we continue to hold sedation, however few hours later the patient became extremely agitated, had to give her Ativan, did not seem to control her agitation, and she did not seem to be appropriate, she was just agitated and thrashing coming asynchronous with the ventilator. Hence I recommended that she goes back on propofol. No chest x-ray done today. CBC showed a hemoglobin of 7.2 otherwise unremarkable. Sodium is down to 146, basic metabolic profile otherwise is normal. Patient was reevaluated today on 01/25/20. Remains in the ICU, intubated and mechanically ventilated. Her ventilator settings are assist control rate of 20 FiO2 is 70% PEEP was at 5, volume is 4. Tidal volume is 450 ABG today showed a pO2 of 87 pCO2 of 39 pH of 7.44. Yesterday patient was given a trial of weaning, however she became extremely restless and agitated. Had to be placed back on propofol, and she is now back on propofol at 10 mcg/kg/m. She is not requiring any pressors. She is on enteral feeding. And her hemoglobin today is noted to be low at 6.4, and I'm recommending a unit of packed RBCs to be transfused. She seems to be overusing blood from the site of the right subclavian triple-lumen catheter, went ahead and cut down her Lovenox to 60 mg subcu every 12 hours instead of 80 mg subcu every 12 hours. Chest x-ray, showed worsening bilateral multifocal infiltrates. And obviously the patient is not ready to be weaned again today. Hence I have increased her PEEP back to 10, and I plan to titrate her FiO2 down to 55% if possible. Discussed her condition wi th the today, and updated him on her status. Explained time that she is not ready to be weaned, and she will be kept sedated today. On 02/08/2020, the patient's condition has been worse and she is obviously decompensated. She became progressively more restless and agitated and asynchronous mechanical ventilator. The patient started losing volumes on the mechanical ventilator and the patient also became progressively more hypoxic. At a time of my arrival, the patient was breathing in the 40s, she's was not returning her volumes back and she was also running fever. The blood gases from today showed a pH of 7.55 with a pCO2 of 40 and pO2 of 55 and this was done on a VAC plus mode with a tidal volume of 650 and a PEEP of 8 with an FiO2 of 60% and at a time of 14. The chest x-ray from today shows no major interval change compared to the earlier chest x-ray. The tracheostomy tube is in a good location. The patient has bilateral pulmonary infiltrates mainly in the upper lobes and in the lower lobes and these findings are essentially unchanged compared to yesterday's chest x-ray. No significant orotracheal secretions. Her temperature max was at 102.4. The patient has no triple-lumen catheter. The patient is a PICC line in the right upper extremity. She has a Qureshi catheter. She has a left radial arterial line. She is receiving bolus feeding for nutritional support. She is on Lovenox 90 mg subcu every 12 hours regarding a previous history of pulmonary embolism. She is on no pressors for now. Based on this decompensation, the patient was started back comfortable for which is running at 20 mcg/kg per minute. Morning hemoglobin down to 6.7 from 7.1. Note that the patient's has shown no signs of any GI bleeding. A unit of packed RBC was ordered for this patient. S4 mental status, the patient was taken off the sedation for approximately 48 hours. She was opening her eyes. She was grimacing. She was still not following any commands and I did not see any recovery or significant recovery in her mentation while being off sedation. Is doing some grimacing to deep painful stimulation. Reevaluated today on 02/09/20, patient remains intubated and mechanically ventilated, she has a trach and PEG tube in place, patient underwent tracheostomy and PEG tube placement on 02/14/20, she is now on pressure control mode of mechanical ventilation, pressure is 22, rate is set at 26. Inspiratory time is 1 second. She is on 60% FiO2, she is on propofol at 55 mcg/kg/m, fentanyl 1 mcg/kg/h, and she is also on amiodarone at 1 mg drip. Patient is receiving bolus feedings. 150 ML every 4 hours, and she has free water flushes given. Remains on cefepime and vancomycin. Her urine output is marginal, hence I recommended a fluid bolus and if no improvement to be given Lasix. However the nurses changed her Qureshi, and she was able to put out at least a liter with Qureshi placement. Added Solu-Medrol 60 mg IV push every 6 hours. Chest x-ray continues to show diffuse interstitial infiltrates bilaterally. ABG today showed a pO2 of 64 pCO2 of 48 pH of 7.44 this is on FiO2 of 60%. CBC showed WBC count of 8 hemoglobin is 7.6. Basic metabolic profile is relatively normal. Pro-calcitonin is elevated at 0.32. Hence antibiotics will be continued Patient was reevaluated today on 02/10/20, remains in the ICU, intubated and mechanically ventilated. Her ventilator settings are pressure control set at 22, rate is 26, FiO2 is 60%, and PEEP of 12. Inspiratory time is 1 second. ABG today showed a pO2 of 67 pCO2 of 48 pH of 7.42. Patient is still on amiodarone at 0.5 mg/m, norepinephrine at 0.02 mcg/kg/h, propofol at 30 mcg/kg/m, and fentanyl 20 mcg/kg/h. Patient is quite sedated, unable to assess mental status, however I do plan to hold sedation today, and assess mental status at least briefly. Patient has been receiving treatment for urinary tract infection, and I will go ahead and discontinue vancomycin, and continue cefepime repeat urine cultures were ordered patient remains on bolus tube feeding, receiving vital HPI at 170 ML every 6 hours plus free water flushes every 4 hours. Chest x-ray continues to show diffuse interstitial infiltrates bilaterally. Much improvement noted on the chest x-ray. Reevaluated today on 02/11/20, patient remains in the ICU, intubated and mechanically ventilated, patient is receiving mechanical ventilation through tracheostomy. And she is receiving enteral feeding through PEG tube. Her vent ilator settings are pressure control set at 22, rate is 26, FiO2 is 60% and PEEP is 12. ABG showed a pO2 of 78 pCO2 of 53 pH of 7.40. Patient is on propofol at 30 mcg/kg/m, IV fluid to KVO, fentanyl 12 mcg/kg/m, she is not requiring any pressors, she is hemodynamically stable. Try today to discontinue sedation and assessment of sinus, however off fentanyl and on propofol, patient was noted to be extremely agitated, restless, could not follow any instructions, her blood pressure was over 200 systolic, and could not get the patient to respond to any stimuli. Tried patient on Nimbex, did not seem to do well, continued to desaturate on Nimbex, and she was agonal with mechanical ventilation. Hence the patient back on propofol, and will decide on the dose of fentanyl possibly cutting down significantly. Chest x-ray continues to show diffuse interstitial infiltrates, not much change since admission. Reevaluated today on 02/12/20, patient remains on mechanical ventilation, she is on pressure control mode of mechanical ventilation, pressure is set at 22, rate is 26, inspiratory time was cut down from 1-0.8, her FiO2 is 80%, PEEP is at 12. ABG showed a pO2 of 96 pCO2 46 pH of 7.48. Patient is on propofol at 50 mcg/kg/m, IV fluid at KVO, she is also on clevidipine for elevated blood pressure at 3 mg per hour. Patient is on bolus feedings, failed sedation yesterday miserably, and today she remains extremely restless agitated even with 50 mcg/kg off propofol. Hence the dose will be increased. Patient is on Dilaudid when necessary. Will go ahead and give the patient a trial of Seroquel today, and hopefully cut down on propofol. We will also arrange for a CT of the brain, and I have asked the nurses to titrate her FiO2 down and maintain O2 saturation above 90%. Brain CT showed no acute intracranial process, chest x- ray continues to show diffuse interstitial infiltrates, right more so than left. CBC today is relatively normal electrolytes are normal renal profile is normal. Reevaluated today on 02/13/20, patient remains in the ICU, intubated and mechanically ventilated. Patient is on pressure control mode of mechanical ventilation, pC is 22,ti is 0.8. FiO2 is 80% PEEP is 12 however considering the patient is saturating nicely I cut down the FiO2 to 70% and instructed to taper down maintain O2 sats is 90% ABG today showed a pO2 of 119 pCO2 of 56 pH of 7.45 . Electrolytes are normal except for elevated bicarb of 39 renal profile is normal. CBC is relatively normal. Hemoglobin is 8.1, WBC count is 7.5. His x- ray continues to show bilateral interstitial lung disease. Consistent with covid19 pneumonitis, and underlying ARDS patient is maintained on propofol, 40 mcg/kg/m, her fentanyl was discontinued, and recently we started the patient on Seroquel hoping to taper down propofol and eventually start weaning trials on this patient. Objective - Vital Signs Vital signs: Vital Signs Temp 96.8 F L 02/13/20 12:00 Pulse 75 02/13/20 13:00 Resp 28 H 02/13/20 13:00 BP 111/66 02/13/20 13:00 Pulse Ox 95 02/13/20 13:00 Intake & Output 02/12/20 02/13/20 02/13/20 18:59 06:59 18:59 Intake Total 1164.668 976.005 838.656 Output Total 2125 730 1055 Balance -960.332 246.005 -216.344 Weight 84.8 kg Intake: IV 449 273 261 .9 @ KVO 260 190 140 Cefepime 1 gm In Sodium 50 50 100 Chloride 0.9% 50 ml @ 12. 5 mls/hr IVPB Q12HR [facility] Rx#:[id number] Fluconazole in NaCl,Iso- 100 Osm 200 mg In Saline 1 100ml.bag @ 100 mls/hr IVPB DAILY@1600 [facility] Rx#: [id number] pressure bags 39 33 21 Intake, IV Titration 265.668 193.005 277.656 Amount Clevidipine Butyrate 25 9.9 mg In Empty Bag 1 bag @ 1 MG/HR 2 mls/hr IV .Q24H [facility] Rx#:[id number] Magnesium Sulfate-D5w Pmx 100 1 gm In Dextrose/Water 1 100ml.bag @ 100 mls/hr IVPB Q1H [facility] Rx#: [id number] propofoL 1,000 mg In 255.768 193.005 177.656 Empty Bag 1 bag @ Titrate IV .Q0M [facility] Rx#: [id number] Oral 30 Tube Feeding 330 330 220 Other 90 180 80 Output: Urine 2125 730 1055 Other: Voiding Method Indwelling Catheter Indwelling Catheter Indwelling Catheter ABP, PAP, CO, CI - Last Documented Arterial Blood Pressure 141/67 - Exam GENERAL EXAM: Revealed 79-year-old female intubated, on mechanical ventilation. HEAD: Atraumatic, normocephalic. Tracheostomy is intact. HEENT: PERRLA, EOMI, no icterus, no neck masses, no JVD, no stridor. Moist mucous membranes. .CHEST: No chest wall deformity. LUNGS: Crackles noted bilaterally more so at the right base. Symmetrical chest expansion. CVS: Irregular rhythm, no S3 gallop. ABDOMEN: No hepatosplenomegaly, normal bowel sounds, no guarding or rigidity. PEG tube is intact SPINE: No scoliosis or deformity SKIN: No rashes CENTRAL NERVOUS SYSTEM: Cannot assess, on propofol, yesterday could not assess her mental status even off propofol. EXTREMITIES: No clubbing, trace of bipedal edema, no cyanosis. - Labs CBC & Chem 7: 02/13/20 04:30 02/13/20 04:30 Labs: Abnormal Lab Results - Last 24 Hours (Table) 1202/12/20 02/13/20 Range/Units 17:51 20:31 00:23 RBC (3.80-5.40) m/uL Hgb (11.4-16.0) gm/dL Hct (34.0-46.0) % RDW (11.5-15.5) % Plt Count (150-450) k/uL Lymphocytes # (1.0-4.8) k/uL ABG pCO2 (35-45) mmHg ABG pO2 (83-108) mmHg ABG HCO3 (21-25) mmol/L ABG Total CO2 (19-24) mmol/L ABG O2 Saturation (94-97) % Potassium 3.2 L (3.5-5.1) mmol/L Carbon Dioxide (22-30) mmol/L BUN (7-17) mg/dL Creatinine (0.52-1.04) mg/dL Glucose (74-99) mg/dL POC Glucose (mg/dL) 154 H 135 H (75-99) mg/dL Calcium (8.4-10.2) mg/dL Total Protein (6.3-8.2) g/dL Albumin (3.5-5.0) g/dL 02/13/20 02/13/20 02/13/20 Range/Units 04:30 04:30 05:57 RBC 2.68 L (3.80-5.40) m/uL Hgb 8.1 L D (11.4-16.0) gm/dL Hct 26.0 L (34.0-46.0) % RDW 16.4 H (11.5-15.5) % Plt Count 469 H (150-450) k/uL Lymphocytes # 0.7 L (1.0-4.8) k/uL ABG pCO2 56 H (35-45) mmHg ABG pO2 119 H (83-108) mmHg ABG HCO3 38 H (21-25) mmol/L ABG Total CO2 40 H (19-24) mmol/L ABG O2 Saturation 100.0 H (94-97) % Potassium (3.5-5.1) mmol/L Carbon Dioxide 39 H (22-30) mmol/L BUN 46 H (7-17) mg/dL Creatinine 0.35 L (0.52-1.04) mg/dL Glucose 141 H (74-99) mg/dL POC Glucose (mg/dL) (75-99) mg/dL Calcium 7.8 L (8.4-10.2) mg/dL Total Protein 4.1 L (6.3-8.2) g/dL Albumin 1.9 L (3.5-5.0) g/dL 02/13/20 02/13/20 Range/Units 06:25 11:34 RBC (3.80-5.40) m/uL Hgb (11.4-16.0) gm/dL Hct (34.0-46.0) % RDW (11.5-15.5) % Plt Count (150-450) k/uL Lymphocytes # (1.0-4.8) k/uL ABG pCO2 (35-45) mmHg ABG pO2 (83-108) mmHg ABG HCO3 (21-25) mmol/L ABG Total CO2 (19-24) mmol/L ABG O2 Saturation (94-97) % Potassium (3.5-5.1) mmol/L Carbon Dioxide (22-30) mmol/L BUN (7-17) mg/dL Creatinine (0.52-1.04) mg/dL Glucose (74-99) mg/dL POC Glucose (mg/dL) 150 H 190 H (75-99) mg/dL Calcium (8.4-10.2) mg/dL Total Protein (6.3-8.2) g/dL Albumin (3.5-5.0) g/dL Microbiology - Last 24 Hours (Table) 02/11/20 00:41 Gram Stain - Final Sputum Sputum Culture - Final Jodie albicans 02/08/20 08:53 Blood Culture - Preliminary Blood No Growth after 120 hours 02/10/20 10:30 Urine Culture - Final Urine,Catheterized Jodie albicans Assessment and Plan Assessment: Impression: Acute hypoxic respiratory failure with bilateral pneumonia and ARDS. secondary to Covid 19 pneumonitis. Acute right sided pulmonary embolism and hypercoagulability secondary to Covid 19 infection. . Recurrent atrial fibrillation, maintained on amiodarone. And on anticoagulations therapy. Remote history of deep vein thrombosis patient has been on Xarelto on outpatient basis. Acute kidney injury. Resolved since admission Elevated d-dimer. Hypercoagulable state. Contributing to her pulmonary embolism. Suspect acute toxic metabolic encephalopathy, related to her Covid [address] of the brain is nondiagnostic. Chronic anemia, multifactorial. Status post tracheostomy and PEG tube placement on 02/04/20 Recommendation: Continue pressure control mode of mechanical ventilation. Daily interruption of sedation and assessment of mental status Continue Seroquel and titrate propofol accordingly. Continue nutritional support. Via PEG. Patient is on bolus feedings. Continue anticoagulation therapy. Continue Covid 19 cocktail treatment. Continue amiodarone. Continue GI prophylaxis. continue cefepime. Continue Solu-Medrol. Continue to monitor the patient in the ICU, she is critically ill, Critical care time is over 30 minutes. Time with Patient: Greater than 30
[2020-02-13] MEDS ORDERED: Potassium Replacement Protocol 1 EACH MISC MISCELLANE PRN (14:27)
[2020-02-13] MEDS: POTASSIUM BICARBONATE/CIT AC 20 MEQ TABLET.EFF NG-TUBE SCH ×2 (14:36→16:29)
[2020-02-13] MEDS: FLUCONAZOLE IN NACL,ISO-OSM 200 MG in SALINE 1 100ML.BAG IVPB SCH (16:28)
[2020-02-13 17:51] LABS: Glucose,Whole Blood 156 mg/dL (75-99)
[2020-02-13 19:38] LABS: LD Isoenzymes 1 24 % (19-38); LD Isoenzymes 2 40 % (30-43); LD Isoenzymes 3 18 % (16-26); LD Isoenzymes 4 9 % (3-12); LD Isoenzymes 5 9 % (3-14); Lactacte Dehydrogenase(LD) ISO 264 U/L (120-250)
[2020-02-13] MEDS: MELATONIN 5 MG TABLET PO SCH (20:58)
[2020-02-13 23:45] LABS: Glucose,Whole Blood 127 mg/dL (75-99)
[2020-02-14] MEDS: NOREPINEPHRINE 4 MG in SODIUM CHLORIDE 0.9% 250 ML IV SCH ×2 (04:21→12:02)
[2020-02-14 04:45] LABS: ABG HCO3 39 mmol/L (21-25); ABG Oxygen Saturation 97.3 % (94-97); ABG PCO2 49 mmHg (35-45); ABG PH 7.51 (7.35-7.45); ABG PO2 86 mmHg (83-108); ABG TCO2 41 mmol/L (19-24); Allen Test Performed? Yes
[2020-02-14 04:47] LABS: Anisocytosis Slight; Basophils # (A) 0.1 k/uL (0-0.2); Basophils % (A) 1 %; Eosinophils % (A) 0 %; HCT 30.3 % (34.0-46.0); HGB 9.5 gm/dL (11.4-16.0); Hypochromasia Moderate; Lymphocytes # (A) 0.9 k/uL (1.0-4.8); Lymphocytes % (A) 8 %; MCH 30.3 pg (25.0-35.0); MCHC 31.5 g/dL (31.0-37.0); MCV 96.1 fL (80.0-100.0); Macrocytosis Slight; Mean Platelet Volume 8.1; Monocytes # (A) 0.4 k/uL (0-1.0); Monocytes % (A) 3 %; Neutrophils # (A) 9.6 k/uL (1.3-7.7); Neutrophils % (A) 88 %; Platelet Count 517 k/uL (150-450); RBC 3.15 m/uL (3.80-5.40); RDW 16.4 % (11.5-15.5)
[2020-02-14 04:56] LABS: ALT 20 U/L (4-34); AST 18 U/L (14-36); African American GFR (CKD) >90 (>60 ml/min/1.73 sqM); Albumin 2.2 g/dL (3.5-5.0); Alkaline Phosphatase 82 U/L (38-126); Blood Urea Nitrogen 50 mg/dL (7-17); Calcium 8.1 mg/dL (8.4-10.2); Chloride 102 mmol/L (98-107); Glucose 152 mg/dL (74-99); Magnesium 2.3 mg/dL (1.6-2.3); Non-African American GFR(CKD) >90 (>60 ml/min/1.73 sqM); Potassium 4.1 mmol/L (3.5-5.1); Sodium 140 mmol/L (137-145); Total Bilirubin 0.4 mg/dL (0.2-1.3); Total Protein 4.7 g/dL (6.3-8.2)
[2020-02-14 05:06] LABS: Anion Gap -1 mmol/L; Carbon Dioxide 39 mmol/L (22-30)
[2020-02-14 06:36] LABS: Glucose,Whole Blood 150 mg/dL (75-99)
[2020-02-14] MEDS: INSULIN ASPART (NovoLOG) 100 UNIT/ML VIAL SQ SCH ×3 (06:53→17:21)
[2020-02-14] MEDS: HYDROmorphone 0.5 MG/0.5 ML SYRINGE IVP PRN ×4 (07:39→20:06)
--- NOTE | 2020-02-14 07:44 | XR ---
EXAMINATION TYPE: XR chest 1V portable DATE OF EXAM: 02/14/2020 COMPARISON: 02/13/2020 HISTORY: Shortness of breath TECHNIQUE: Single frontal view of the chest is obtained. FINDINGS: Tracheostomy tube and PICC line stable. Diffuse interstitial pattern bilateral infiltrate and pleural effusion. Heart size stable. No sizable pneumothorax. Arthropathy of the shoulders. Under lying COPD suggested. IMPRESSION: Stable diffuse pleural-parenchymal changes correlate for diffuse pneumonia versus CHF.
[2020-02-14 07:58] LABS: Glucose,Whole Blood 154 mg/dL (75-99)
[2020-02-14] MEDS: CHLORHEXIDINE GLUCONATE 15 ML CUP MUCOUS MEM SCH ×2 (08:13→20:05)
[2020-02-14] MEDS: ASCORBIC ACID 500 MG TAB PO SCH (08:14)
[2020-02-14] MEDS: CHOLECALCIFEROL 1,000 UNIT TAB PO SCH (08:14)
[2020-02-14] MEDS: METOPROLOL TARTRATE 50 MG TAB PO SCH ×2 (08:14→20:05)
[2020-02-14] MEDS: ZINC SULFATE 220 MG CAP PO SCH (08:14)
[2020-02-14] MEDS: FAMOTIDINE 20 MG TAB PO SCH (08:14)
[2020-02-14] MEDS: INSULIN DETEMIR (LEVEMIR) 100 UNIT/ML SYR SQ SCH ×2 (08:14→22:35)
[2020-02-14] MEDS: ENOXAPARIN 100 MG/ML SYRINGE SQ SCH ×2 (08:14→20:05)
[2020-02-14] MEDS: FUROSEMIDE 10 MG/ML 4 ML VIAL IV SCH (08:15)
[2020-02-14] MEDS: ALBUTEROL HFA INHALER INHALATION SCH ×4 (08:15→19:43)
[2020-02-14] MEDS: AMIODARONE 200 MG TAB PO SCH (08:16)
[2020-02-14] MEDS: CEFEPIME 1 GM in SODIUM CHLORIDE 0.9% 50 ML IVPB SCH (08:25)
[2020-02-14] MEDS: methylPREDNISolone SOD SUCCI 40 MG/ML 1 ML VIAL IV SCH (08:26)
[2020-02-14] MEDS: QUEtiapine 50 MG TAB PO SCH ×2 (08:26→20:05)
[2020-02-14 11:09] LABS: Glucose,Whole Blood 171 mg/dL (75-99)
[2020-02-14] MEDS: CLEVIDIPINE BUTYRATE 25 MG in EMPTY BAG 1 BAG IV SCH (11:52)
--- NOTE | 2020-02-14 12:53 | P.PN ---
Subjective Progress Note Date: 02/14/20 Principal diagnosis: Acute hypoxic regular failure secondary to covid 19 related pneumonia. On today's evaluation of 01/12/2020, the patient is being seen in follow-up. As mentioned earlier, the patient was infected with jane virus Covid 19 and the patient had an acute Covid 19 related pneumonia with diffuse breath and pulmonary infiltrates. Subsequently, the patient had a CT angios of the chest that showed bilateral pulmonary infiltrates and groundglass opacities in add ition to pulmonary embolism involving mainly the right-sided pulmonary artery branches. Filling defect in the right pulmonary artery and segmental branches in addition to that there is a mild component of strain pattern. Nevertheless, tachycardic and short and a ejection fraction of 6065% and the patient had no enlargement of the right ventricle and there was no evidence of any pulmonary hypertension. Noted the patient oxidation is gradually gotten worse and currently the patient is on high flow oxygen at 6 L with an FiO2 of 85% and this was utilized to bring the saturation above 90%. The patient is on IV heparin with a therapeutic PTT of 58.7. Based on the acute jane virus Covid 19 i nfection, the patient had an LDH of 1455 and a CRP is at 47.9. The patient is having difficulty breathing with minimal amount of activity. Currently she is on bedrest. The patient has no pleurisy. No hemoptysis. Altered mentation. No other significant events overnight. Based on the worsening oxygenation, repeat chest x-ray was done and showed a patchy bilateral pulmonary infiltrates right more than left. No pleural effusion. The findings are essentially stable compared to yesterday's chest x-ray. On 01/18/2020, the patient remains intubated on a mechanical ventilator. This morning, the patient sedated with propofol and is calm and comfortable. Propofol is running at 50 mcg/kg per minute. The patient remained on assist control mode of ventilation. She is on a tidal volume of 451 and FiO2 of 50% with a PEEP of 12 and a rate of 14. The patient's blood gases showed a pH of 7.21 with episodes of 56 and pO2 of 126. The peak airway pressure is 30. The static airway pressure is 28. Chest x-ray remains unchanged. There is bilateral pulmonary infiltrates which remains essentially unchanged compared to yesterday. She has a triple lumen catheter. Her CVP is around 9. She did receive total of 2 L of IV fluids yesterday which both upper CVP and improved her blood pressure. She remains on a low dose norepinephrine infusion running at 0.04-respiratory KG per minute. She also has an acute kidney injury and a component of non-anion gap metabolic acidosis. Based on that, I gave her 2 A of sodium bicarbonate total of 100 mEq and the patient was also started on abicarb infusion. This improved her non-anion gap metabolic acidosis. The serum bicarb today is up to 24. Creatinine is at 1.6 with a BUN of 82. The patient meanwhile went into atrial fibrillation again with rapid ventricular response. Based on her hypotension, I opted to start the patient on amiodarone. I loaded her with a total of 150 mg of amiodarone bolus and I'm going to load completely over the next 24 hours. She is also on IV cefepime as an empiric antibiotic coverage. She is completed a course of Remdesivir ,, convalescent plasma 1 and the patient is also been on Decadron 6 mg every 24 hours. Reevaluated today on 01/26/20, patient remains in the ICU, intubated and mechanically ventilated. Ventilator settings are assist control rate of 18 tidal volume 450 FiO2 50% PEEP is 12. I did cut down the PEEP to 10 and increase the rate to 20. ABG today showed a pO2 of 98 pCO2 of 46 pH of 7.30. Patient is on IV fluid at 75 mL per hour, propofol at 40 mcg/kg/m, norepinephrine at 0.01 mcg/kg/m, amiodarone 0.5 mg per hour, patient is on Lovenox and on cefepime. Patient has a right subclavian triple-lumen catheter, and a right radial arterial line. Patient did receive 1 unit of convalescent plasma, and receivedremdesivir. Chest x-ray continues to show increase infiltrates with possibly a small left pleural effusion infiltrates are noted bilaterally., WBC count is 11.3 hemoglobin is 8.5. D-dimer is 9.45. BUN is 80 creatinine 1.29. I's are normal. LDH is 02/28/2007 and C-reactive protein is 45.6 Patient was reevaluated today on 01/20/20, remains in the ICU, remains intubated and mechanically ventilated. Ventilator settings are assist control rate of 20 tidal volume is 450 FiO2 is 50% and PEEP of 10. ABG showed a pO2 of 83 pCO2 of 40 pH of 7.37. Patient is on IV fluid at 50 mL per hour 0.9 normal saline on propofol at 40 mcg/kg/m, she is on tube feeding, and today I increased the PEEP down to 8. I plan to give the patient a weaning trial possibly with a pressure support of 8 and CPAP depending on her weaning. I have instructed that we hold propofol, assess weaning parameters, and proceed accordingly. Chest x-ray continues to show evidence of bilateral airspace disease, slight improvement compared to previous x-rays. CBC noted WBC count is 10 hemoglobin is 8.4 electrodes are normal renal profile showed a BUN of 80 creatinine of 1.05 Reevaluated today on 01/21/20, patient remains in the ICU, intubated and mechanically ventilated. Ventilator settings are assist control rate of 20 tidal volume is 450 FiO2 is 55% and PEEP is 12. Went ahead after reviewing the ABG on cut down the FiO2 to 50%. ABG showed a pO2 of 95 pCO2 of 42 pH of 7.38. Chest x-ray continues to show bilateral infiltrates, however the right side seems to be more affected than the left side. Patient remains on propofol at 40 mcg/kg/m, she is on enteral feeding, IV fluids at KVO, and remains on oral amiodarone, also remains on Lovenox. Patient was actually intubated on 01/15. Labs today showed relatively normal CBC, hemoglobin is 8.7. Electrolytes are normal except for bicarb of 21 chloride is 120 and potassium is 5.3. BUN is noted to be 80 and creatinine is 0.73. Hence her fluid was increased Reevaluated today on 01/22/20, patient remains in the ICU, intubated and mechanically ventilated. She is presently on assist control rate of 20 tidal volume is 450 FiO2 is 50% PEEP is 12. ABG showed a pO2 of 98 pCO2 of 42 pH of 7.40. Patient remains on propofol at 40 mcg/kg/m, I have recommended cutting the PEEP down to 8, Sats 50%, and I plan to give the patient hopefully today. Trial of pressure support and CPAP. Chest x-ray is basically unchanged compared to the chest x-ray yesterday, does have some infiltrates mostly in the right lung. Left lung seems to be less involved. WBC count today is 10.4 hemoglobin is 8.4, d-dimer is 4.5 to remains on therapeutic dose of Lovenox. Basic metabolic profile is normal. Patient remains on enteral feedings. Inflammatory markers are improving. Reevaluated today on 01/23/20, remains intubated and mechanically ventilated. Her assist control rate is 20 tidal volume is 450 FiO2 is 50% and PEEP is 8 ABG today showed a pO2 of 94 pCO2 of 40 pH of 7.42. Patient is on propofol at 10 mcg/kg/m, on tube feeding at goal, previously the patient failed sedation holiday, and she had to be placed on sedation and assist control mode of mechanical ventilation. Patient went into A. fib with RVR, last night, and today she is in A. fib but rate seems to be controlled. Her sodium is high today at 148, we'll try to corrected with increasing her free water intake, and we will likely awaken the patient today and possibly give her a trial of pressure support and CPAP. Chest x-ray is definitely showing some improvement in her scattered infiltrates. Compared to previous x-rays. Electrolytes were reviewed, her sodium is 148, and we'll try to corrected. Otherwise no significant abnormality on her labs WBC count is 11.2 hemoglobin is 8.4. Reevaluated today on 01/24/20, patient remains off sedation for the last 24 hours. However she remains vented, ventilator settings are assist control rate of 20 tidal volume is 450 FiO2 is 50% and PEEP of 8. ABG showed a pO2 of 91 pCO2 of 40 pH of 7.45. Patient is requiring clevidipine at 5 mg per hour. I was able to cut down her PEEP down to 5. Since her pO2 was 91. I recommended that we continue to hold sedation, however few hours later the patient became extremely agitated, had to give her Ativan, did not seem to control her agitation, and she did not seem to be appropriate, she was just agitated and thrashing coming asynchronous with the ventilator. Hence I recommended that she goes back on propofol. No chest x-ray done today. CBC showed a hemoglobin of 7.2 otherwise unremarkable. Sodium is down to 146, basic metabolic profile otherwise is normal. Patient was reevaluated today on 01/25/20. Remains in the ICU, intubated and mechanically ventilated. Her ventilator settings are assist control rate of 20 FiO2 is 70% PEEP was at 5, volume is 4. Tidal volume is 450 ABG today showed a pO2 of 87 pCO2 of 39 pH of 7.44. Yesterday patient was given a trial of weaning, however she became extremely restless and agitated. Had to be placed back on propofol, and she is now back on propofol at 10 mcg/kg/m. She is not requiring any pressors. She is on enteral feeding. And her hemoglobin today is noted to be low at 6.4, and I'm recommending a unit of packed RBCs to be transfused. She seems to be overusing blood from the site of the right subclavian triple-lumen catheter, went ahead and cut down her Lovenox to 60 mg subcu every 12 hours instead of 80 mg subcu every 12 hours. Chest x-ray, showed worsening bilateral multifocal infiltrates. And obviously the patient is not ready to be weaned again today. Hence I have increased her PEEP back to 10, and I plan to titrate her FiO2 down to 55% if possible. Discussed her condition wi th the today, and updated him on her status. Explained time that she is not ready to be weaned, and she will be kept sedated today. On 02/08/2020, the patient's condition has been worse and she is obviously decompensated. She became progressively more restless and agitated and asynchronous mechanical ventilator. The patient started losing volumes on the mechanical ventilator and the patient also became progressively more hypoxic. At a time of my arrival, the patient was breathing in the 40s, she's was not returning her volumes back and she was also running fever. The blood gases from today showed a pH of 7.55 with a pCO2 of 40 and pO2 of 55 and this was done on a VAC plus mode with a tidal volume of 650 and a PEEP of 8 with an FiO2 of 60% and at a time of 14. The chest x-ray from today shows no major interval change compared to the earlier chest x-ray. The tracheostomy tube is in a good location. The patient has bilateral pulmonary infiltrates mainly in the upper lobes and in the lower lobes and these findings are essentially unchanged compared to yesterday's chest x-ray. No significant orotracheal secretions. Her temperature max was at 102.4. The patient has no triple-lumen catheter. The patient is a PICC line in the right upper extremity. She has a Qureshi catheter. She has a left radial arterial line. She is receiving bolus feeding for nutritional support. She is on Lovenox 90 mg subcu every 12 hours regarding a previous history of pulmonary embolism. She is on no pressors for now. Based on this decompensation, the patient was started back comfortable for which is running at 20 mcg/kg per minute. Morning hemoglobin down to 6.7 from 7.1. Note that the patient's has shown no signs of any GI bleeding. A unit of packed RBC was ordered for this patient. S4 mental status, the patient was taken off the sedation for approximately 48 hours. She was opening her eyes. She was grimacing. She was still not following any commands and I did not see any recovery or significant recovery in her mentation while being off sedation. Is doing some grimacing to deep painful stimulation. Reevaluated today on 02/09/20, patient remains intubated and mechanically ventilated, she has a trach and PEG tube in place, patient underwent tracheostomy and PEG tube placement on 02/14/20, she is now on pressure control mode of mechanical ventilation, pressure is 22, rate is set at 26. Inspiratory time is 1 second. She is on 60% FiO2, she is on propofol at 55 mcg/kg/m, fentanyl 1 mcg/kg/h, and she is also on amiodarone at 1 mg drip. Patient is receiving bolus feedings. 150 ML every 4 hours, and she has free water flushes given. Remains on cefepime and vancomycin. Her urine output is marginal, hence I recommended a fluid bolus and if no improvement to be given Lasix. However the nurses changed her Qureshi, and she was able to put out at least a liter with Qureshi placement. Added Solu-Medrol 60 mg IV push every 6 hours. Chest x-ray continues to show diffuse interstitial infiltrates bilaterally. ABG today showed a pO2 of 64 pCO2 of 48 pH of 7.44 this is on FiO2 of 60%. CBC showed WBC count of 8 hemoglobin is 7.6. Basic metabolic profile is relatively normal. Pro-calcitonin is elevated at 0.32. Hence antibiotics will be continued Patient was reevaluated today on 02/10/20, remains in the ICU, intubated and mechanically ventilated. Her ventilator settings are pressure control set at 22, rate is 26, FiO2 is 60%, and PEEP of 12. Inspiratory time is 1 second. ABG today showed a pO2 of 67 pCO2 of 48 pH of 7.42. Patient is still on amiodarone at 0.5 mg/m, norepinephrine at 0.02 mcg/kg/h, propofol at 30 mcg/kg/m, and fentanyl 20 mcg/kg/h. Patient is quite sedated, unable to assess mental status, however I do plan to hold sedation today, and assess mental status at least briefly. Patient has been receiving treatment for urinary tract infection, and I will go ahead and discontinue vancomycin, and continue cefepime repeat urine cultures were ordered patient remains on bolus tube feeding, receiving vital HPI at 170 ML every 6 hours plus free water flushes every 4 hours. Chest x-ray continues to show diffuse interstitial infiltrates bilaterally. Much improvement noted on the chest x-ray. Reevaluated today on 02/11/20, patient remains in the ICU, intubated and mechanically ventilated, patient is receiving mechanical ventilation through tracheostomy. And she is receiving enteral feeding through PEG tube. Her vent ilator settings are pressure control set at 22, rate is 26, FiO2 is 60% and PEEP is 12. ABG showed a pO2 of 78 pCO2 of 53 pH of 7.40. Patient is on propofol at 30 mcg/kg/m, IV fluid to KVO, fentanyl 12 mcg/kg/m, she is not requiring any pressors, she is hemodynamically stable. Try today to discontinue sedation and assessment of sinus, however off fentanyl and on propofol, patient was noted to be extremely agitated, restless, could not follow any instructions, her blood pressure was over 200 systolic, and could not get the patient to respond to any stimuli. Tried patient on Nimbex, did not seem to do well, continued to desaturate on Nimbex, and she was agonal with mechanical ventilation. Hence the patient back on propofol, and will decide on the dose of fentanyl possibly cutting down significantly. Chest x-ray continues to show diffuse interstitial infiltrates, not much change since admission. Reevaluated today on 02/12/20, patient remains on mechanical ventilation, she is on pressure control mode of mechanical ventilation, pressure is set at 22, rate is 26, inspiratory time was cut down from 1-0.8, her FiO2 is 80%, PEEP is at 12. ABG showed a pO2 of 96 pCO2 46 pH of 7.48. Patient is on propofol at 50 mcg/kg/m, IV fluid at KVO, she is also on clevidipine for elevated blood pressure at 3 mg per hour. Patient is on bolus feedings, failed sedation yesterday miserably, and today she remains extremely restless agitated even with 50 mcg/kg off propofol. Hence the dose will be increased. Patient is on Dilaudid when necessary. Will go ahead and give the patient a trial of Seroquel today, and hopefully cut down on propofol. We will also arrange for a CT of the brain, and I have asked the nurses to titrate her FiO2 down and maintain O2 saturation above 90%. Brain CT showed no acute intracranial process, chest x- ray continues to show diffuse interstitial infiltrates, right more so than left. CBC today is relatively normal electrolytes are normal renal profile is normal. Reevaluated today on 02/13/20, patient remains in the ICU, intubated and mechanically ventilated. Patient is on pressure control mode of mechanical ventilation, pC is 22,ti is 0.8. FiO2 is 80% PEEP is 12 however considering the patient is saturating nicely I cut down the FiO2 to 70% and instructed to taper down maintain O2 sats is 90% ABG today showed a pO2 of 119 pCO2 of 56 pH of 7.45 . Electrolytes are normal except for elevated bicarb of 39 renal profile is normal. CBC is relatively normal. Hemoglobin is 8.1, WBC count is 7.5. His x- ray continues to show bilateral interstitial lung disease. Consistent with covid19 pneumonitis, and underlying ARDS patient is maintained on propofol, 40 mcg/kg/m, her fentanyl was discontinued, and recently we started the patient on Seroquel hoping to taper down propofol and eventually start weaning trials on this patient. Reevaluated today on 02/14/20, patient remains in the ICU, intubated and mechanically ventilated. Remains on pressure control mode of mechanical ventilation, pressure control at 22, inspiratory time is 0.8, FiO2 is 60%, PEEP is 12. ABG today showed a pO2 of 86 pCO2 of 49 pH of 7.51. Chest x-ray continues to show bilateral interstitial infiltrates. Patient is now on propofol at 30 mcg/kg/m, she is receiving enteral feeding via PEG tube, patient is also on Dilaudid when necessary, off sedation the patient continues to have significant rigidity, and agitation, will go ahead and switch the patient from Solu-Medrol to a lower dose of prednisone, and assess if that would help her mental status. Chest x-ray is not significantly changed. Her ABG is showing improvement hence will cut down her FiO2 down to 50% if possible. ECG is basically about the same, electrolytes are normal. Renal Profile is relatively normal except for BUN of 50 and creatinine is 0.44 Objective - Vital Signs Vital signs: Vital Signs Temp 98.4 F 02/14/20 12:00 Pulse 63 02/14/20 12:00 Resp 24 02/14/20 12:00 BP 118/76 02/14/20 12:00 Pulse Ox 92 L 02/14/20 12:00 Intake & Output 02/13/20 02/14/20 02/14/20 18:59 06:59 18:59 Intake Total 1992.511 8121.230 504.979 Output Total 0870 116 5623 Balance -199.828 527.230 -1195.021 Weight 85.5 kg 83.5 kg Intake: IV 476 406 195 .9 @ KVO 240 320 130 Cefepime 1 gm In Sodium 100 50 50 Chloride 0.9% 50 ml @ 12. 5 mls/hr IVPB Q12HR [facility] Rx#:[id number] Fluconazole in NaCl,Iso- 100 Osm 200 mg In Saline 1 100ml.bag @ 100 mls/hr IVPB DAILY@1600 [facility] Rx#: [id number] pressure bags 36 36 15 Intake, IV Titration 329.172 148.230 51.979 Amount Magnesium Sulfate-D5w Pmx 100 1 gm In Dextrose/Water 1 100ml.bag @ 100 mls/hr IVPB Q1H [facility] Rx#: [id number] propofoL 1,000 mg In 229.172 148.230 51.979 Empty Bag 1 bag @ Titrate IV .Q0M [facility] Rx#: [id number] Tube Feeding 350 363 198 Other 160 90 60 Output: Urine 2720 603 4937 Other: Voiding Method Indwelling Catheter Indwelling Catheter Indwelling Catheter ABP, PAP, CO, CI - Last Documented Arterial Blood Pressure 130/68 - Exam GENERAL EXAM: Revealed 79-year-old female intubated, on mechanical ventilation. HEAD: Atraumatic, normocephalic. Tracheostomy is intact. HEENT: PERRLA, EOMI, no icterus, no neck masses, no JVD, no stridor. Moist mucous membranes. .CHEST: No chest wall deformity. LUNGS: Crackles noted bilaterally. Symmetrical chest expansion. CVS: Irregular rhythm, no S3 gallop. ABDOMEN: No hepatosplenomegaly, normal bowel sounds, no guarding or rigidity. PEG tube is intact SPINE: No scoliosis or deformity SKIN: No rashes CENTRAL NERVOUS SYSTEM: Cannot assess, on propofol, remains quite encephalopathic off propofol. EXTREMITIES: No clubbing, trace of bipedal edema, no cyanosis. - Labs CBC & Chem 7: 02/14/20 04:30 02/14/20 04:30 Labs: Abnormal Lab Results - Last 24 Hours (Table) 02/10/20 02/13/20 02/13/20 Range/Units 04:50 14:00 17:50 WBC (3.8-10.6) k/uL RBC (3.80-5.40) m/uL Hgb (11.4-16.0) gm/dL Hct (34.0-46.0) % RDW (11.5-15.5) % Plt Count (150-450) k/uL Neutrophils # (1.3-7.7) k/uL Lymphocytes # (1.0-4.8) k/uL ABG pH (7.35-7.45) ABG pCO2 (35-45) mmHg ABG HCO3 (21-25) mmol/L ABG Total CO2 (19-24) mmol/L ABG O2 Saturation (94-97) % Potassium 3.3 L (3.5-5.1) mmol/L Carbon Dioxide (22-30) mmol/L BUN (7-17) mg/dL Creatinine (0.52-1.04) mg/dL Glucose (74-99) mg/dL POC Glucose (mg/dL) 156 H (75-99) mg/dL Calcium (8.4-10.2) mg/dL LD Isoenzymes 264 H (120-250) U/L Total Protein (6.3-8.2) g/dL Albumin (3.5-5.0) g/dL 02/13/20 02/14/20 02/14/20 Range/Units 23:43 04:30 04:30 WBC 11.0 H (3.8-10.6) k/uL RBC 3.15 L (3.80-5.40) m/uL Hgb 9.5 L (11.4-16.0) gm/dL Hct 30.3 L (34.0-46.0) % RDW 16.4 H (11.5-15.5) % Plt Count 517 H (150-450) k/uL Neutrophils # 9.6 H (1.3-7.7) k/uL Lymphocytes # 0.9 L (1.0-4.8) k/uL ABG pH (7.35-7.45) ABG pCO2 (35-45) mmHg ABG HCO3 (21-25) mmol/L ABG Total CO2 (19-24) mmol/L ABG O2 Saturation (94-97) % Potassium (3.5-5.1) mmol/L Carbon Dioxide 39 H (22-30) mmol/L BUN 50 H (7-17) mg/dL Creatinine 0.44 L (0.52-1.04) mg/dL Glucose 152 H (74-99) mg/dL POC Glucose (mg/dL) 127 H (75-99) mg/dL Calcium 8.1 L (8.4-10.2) mg/dL LD Isoenzymes (120-250) U/L Total Protein 4.7 L (6.3-8.2) g/dL Albumin 2.2 L (3.5-5.0) g/dL 02/14/20 02/14/20 02/14/20 Range/Units 04:40 06:35 07:56 WBC (3.8-10.6) k/uL RBC (3.80-5.40) m/uL Hgb (11.4-16.0) gm/dL Hct (34.0-46.0) % RDW (11.5-15.5) % Plt Count (150-450) k/uL Neutrophils # (1.3-7.7) k/uL Lymphocytes # (1.0-4.8) k/uL ABG pH 7.51 H (7.35-7.45) ABG pCO2 49 H (35-45) mmHg ABG HCO3 39 H (21-25) mmol/L ABG Total CO2 41 H (19-24) mmol/L ABG O2 Saturation 97.3 H (94-97) % Potassium (3.5-5.1) mmol/L Carbon Dioxide (22-30) mmol/L BUN (7-17) mg/dL Creatinine (0.52-1.04) mg/dL Glucose (74-99) mg/dL POC Glucose (mg/dL) 150 H 154 H (75-99) mg/dL Calcium (8.4-10.2) mg/dL LD Isoenzymes (120-250) U/L Total Protein (6.3-8.2) g/dL Albumin (3.5-5.0) g/dL 02/14/20 Range/Units 11:07 WBC (3.8-10.6) k/uL RBC (3.80-5.40) m/uL Hgb (11.4-16.0) gm/dL Hct (34.0-46.0) % RDW (11.5-15.5) % Plt Count (150-450) k/uL Neutrophils # (1.3-7.7) k/uL Lymphocytes # (1.0-4.8) k/uL ABG pH (7.35-7.45) ABG pCO2 (35-45) mmHg ABG HCO3 (21-25) mmol/L ABG Total CO2 (19-24) mmol/L ABG O2 Saturation (94-97) % Potassium (3.5-5.1) mmol/L Carbon Dioxide (22-30) mmol/L BUN (7-17) mg/dL Creatinine (0.52-1.04) mg/dL Glucose (74-99) mg/dL POC Glucose (mg/dL) 171 H (75-99) mg/dL Calcium (8.4-10.2) mg/dL LD Isoenzymes (120-250) U/L Total Protein (6.3-8.2) g/dL Albumin (3.5-5.0) g/dL Microbiology - Last 24 Hours (Table) 02/08/20 08:53 Blood Culture - Final Blood No Growth after 144 hours 02/11/20 00:41 Gram Stain - Final Sputum Sputum Culture - Final Jodie albicans Assessment and Plan Assessment: Impression: Acute hypoxic respiratory failure with bilateral pneumonia and ARDS. secondary to Covid 19 pneumonitis. Acute right sided pulmonary embolism and hypercoagulability secondary to Covid 19 infection. . Recurrent atrial fibrillation, maintained on amiodarone. Remote history of deep vein thrombosis patient has been on Xarelto on outpatient basis. Acute kidney injury. Resolved. Elevated d-dimer. on Xarelto. Hypercoagulable state. Contributing to her pulmonary embolism. Suspect acute toxic metabolic encephalopathy, related to her Covid [address] of the brain is nondiagnostic. Chronic anemia, multifactorial. Status post tracheostomy and PEG tube placement on 02/04/20 Recommendation: Continue pressure control mode of mechanical ventilation. Daily interruption of sedation and assessment of mental status Continue Seroquel and titrate propofol accordingly. Seems to be helping, the patient is requiring less propofol since Seroquel was added. Cut down the dose of Solu-Medrol and started on 20 mg of prednisone instead. Hoping that will help her mental status Continue nutritional support. Via PEG. Patient is on bolus feedings. Continue anticoagulation therapy. Continue Covid 19 cocktail treatment. Continue amiodarone. Continue GI prophylaxis. Discontinue cefepime. Continue to monitor the patient in the ICU, she is critically ill, Critical care time is over 30 minutes. Time with Patient: Greater than 30
--- NOTE | 2020-02-14 15:11 | P.PN ---
Subjective Progress Note Date: 02/14/20 Principal diagnosis: COVID pneumonia Patient continues to fail weaning trials. She gets extremely agitated and stiff when titrating down her sedation. Objective - Vital Signs Vital signs: Vital Signs Temp 98.4 F 02/14/20 12:00 Pulse 65 02/14/20 14:00 Resp 28 H 02/14/20 14:00 BP 116/85 02/14/20 14:00 Pulse Ox 93 L 02/14/20 14:00 Intake & Output 02/13/20 02/14/20 02/14/20 18:59 06:59 18:59 Intake Total 1430.044 6131.230 616.979 Output Total 5131 315 4474 Balance -199.828 527.230 -1283.021 Weight 85.5 kg 83.5 kg Intake: IV 476 406 241 .9 @ KVO 240 320 170 Cefepime 1 gm In Sodium 100 50 50 Chloride 0.9% 50 ml @ 12. 5 mls/hr IVPB Q12HR [facility] Rx#:[id number] Fluconazole in NaCl,Iso- 100 Osm 200 mg In Saline 1 100ml.bag @ 100 mls/hr IVPB DAILY@1600 [facility] Rx#: [id number] pressure bags 36 36 21 Intake, IV Titration 329.172 148.230 51.979 Amount Magnesium Sulfate-D5w Pmx 100 1 gm In Dextrose/Water 1 100ml.bag @ 100 mls/hr IVPB Q1H [facility] Rx#: [id number] propofoL 1,000 mg In 229.172 148.230 51.979 Empty Bag 1 bag @ Titrate IV .Q0M [facility] Rx#: [id number] Tube Feeding 350 363 264 Other 160 90 60 Output: Urine 6068 067 3694 Other: Voiding Method Indwelling Catheter Indwelling Catheter Indwelling Catheter ABP, PAP, CO, CI - Last Documented Arterial Blood Pressure 131/65 - Exam General: [non toxic], [no distress, sedated on mechanical ventilation], [appears older than age] Derm: [warm], [dry] Head: [atraumatic], [normocephalic], [symmetric] Eyes: [EOMI], [no lid lag], [anicteric sclera] Mouth: [no lip lesion], [mucus membranes moist] Cardiovascular: [S1S2 reg], [no murmur], [positive posterior tibial pulse bilateral], Lungs: [CTA bilateral], [no rhonchi, no rales] , [no accessory muscle use] Abdominal: [soft], [ nontender to palpation], [no guarding], [no appreciable organomegaly] Ext: [no gross muscle atrophy], [+1edema], [no contractures] Neuro: [ CN II-XI grossly intact], [no focal neuro deficits] Psych: Sedated - Labs CBC & Chem 7: 02/14/20 04:30 02/14/20 04:30 Labs: Abnormal Lab Results - Last 24 Hours (Table) 02/10/20 02/13/20 02/13/20 Range/Units 04:50 17:50 23:43 WBC (3.8-10.6) k/uL RBC (3.80-5.40) m/uL Hgb (11.4-16.0) gm/dL Hct (34.0-46.0) % RDW (11.5-15.5) % Plt Count (150-450) k/uL Neutrophils # (1.3-7.7) k/uL Lymphocytes # (1.0-4.8) k/uL ABG pH (7.35-7.45) ABG pCO2 (35-45) mmHg ABG HCO3 (21-25) mmol/L ABG Total CO2 (19-24) mmol/L ABG O2 Saturation (94-97) % Carbon Dioxide (22-30) mmol/L BUN (7-17) mg/dL Creatinine (0.52-1.04) mg/dL Glucose (74-99) mg/dL POC Glucose (mg/dL) 156 H 127 H (75-99) mg/dL Calcium (8.4-10.2) mg/dL LD Isoenzymes 264 H (120-250) U/L Total Protein (6.3-8.2) g/dL Albumin (3.5-5.0) g/dL 02/14/20 02/14/20 02/14/20 Range/Units 04:30 04:30 04:40 WBC 11.0 H (3.8-10.6) k/uL RBC 3.15 L (3.80-5.40) m/uL Hgb 9.5 L (11.4-16.0) gm/dL Hct 30.3 L (34.0-46.0) % RDW 16.4 H (11.5-15.5) % Plt Count 517 H (150-450) k/uL Neutrophils # 9.6 H (1.3-7.7) k/uL Lymphocytes # 0.9 L (1.0-4.8) k/uL ABG pH 7.51 H (7.35-7.45) ABG pCO2 49 H (35-45) mmHg ABG HCO3 39 H (21-25) mmol/L ABG Total CO2 41 H (19-24) mmol/L ABG O2 Saturation 97.3 H (94-97) % Carbon Dioxide 39 H (22-30) mmol/L BUN 50 H (7-17) mg/dL Creatinine 0.44 L (0.52-1.04) mg/dL Glucose 152 H (74-99) mg/dL POC Glucose (mg/dL) (75-99) mg/dL Calcium 8.1 L (8.4-10.2) mg/dL LD Isoenzymes (120-250) U/L Total Protein 4.7 L (6.3-8.2) g/dL Albumin 2.2 L (3.5-5.0) g/dL 02/14/20 02/14/20 02/14/20 Range/Units 06:35 07:56 11:07 WBC (3.8-10.6) k/uL RBC (3.80-5.40) m/uL Hgb (11.4-16.0) gm/dL Hct (34.0-46.0) % RDW (11.5-15.5) % Plt Count (150-450) k/uL Neutrophils # (1.3-7.7) k/uL Lymphocytes # (1.0-4.8) k/uL ABG pH (7.35-7.45) ABG pCO2 (35-45) mmHg ABG HCO3 (21-25) mmol/L ABG Total CO2 (19-24) mmol/L ABG O2 Saturation (94-97) % Carbon Dioxide (22-30) mmol/L BUN (7-17) mg/dL Creatinine (0.52-1.04) mg/dL Glucose (74-99) mg/dL POC Glucose (mg/dL) 150 H 154 H 171 H (75-99) mg/dL Calcium (8.4-10.2) mg/dL LD Isoenzymes (120-250) U/L Total Protein (6.3-8.2) g/dL Albumin (3.5-5.0) g/dL Microbiology - Last 24 Hours (Table) 02/08/20 08:53 Blood Culture - Final Blood No Growth after 144 hours 02/11/20 00:41 Gram Stain - Final Sputum Sputum Culture - Final Jodie albicans Assessment and Plan Plan: Covid 19 pneumonia with acute hypoxic respiratory failure, ARDS - Failing weaning trials, now with trach/peg 02/03 - Completed Remdesivir on 01/15 - Completed 10 days course of Decadron 6 mg now back on steroids, prednisone managed by ICU team - Status post convalescent plasma 01/14 - Status post 7 days of treatment with cefepime 02/06---02/13 - Continue zinc, vitamin C, vitamin D, Pepcid, and melatonin Septic encephalopathy CT head showed nothing acute Seroquel increased by ICU team to try to cut down on propofol. Anemia, multifactorial thrombocytopenia, likely reactive - 2 units pRBC since admission DIffuse Anasarca - IV Lasix managed by ICU team Pulmonary embolus without right ventricular strain, history of prior DVT - Lovenox therapeutic dose A fib with RVR - lovenox, amio Hypertensive urgency On clevedipine gtt Entercoccus and E coli UTI resolved now with jodie in the urine and sputum -Status post treatment with Levaquin, stop date 01/31 -Diflucan started Thrombocytopenia KALYAN due to ATN with resultant metabolic acidosis and hyperphosphatemia, resolved Septic shock, resolved Hypokalemia, resolved DVT prophylaxis: Lovenox for PE Discussed with: Nursing, ICU team Anticipated discharge: 3-[address]: [facility]
[2020-02-14] MEDS: FLUCONAZOLE IN NACL,ISO-OSM 200 MG in SALINE 1 100ML.BAG IVPB SCH (15:31)
[2020-02-14 17:19] LABS: Glucose,Whole Blood 137 mg/dL (75-99)
[2020-02-14] MEDS: MELATONIN 5 MG TABLET PO SCH (20:05)
[2020-02-15 00:44] LABS: Glucose,Whole Blood 136 mg/dL (75-99)
[2020-02-15] MEDS: INSULIN ASPART (NovoLOG) 100 UNIT/ML VIAL SQ SCH ×4 (00:53→17:16)
[2020-02-15] MEDS: HYDROmorphone 0.5 MG/0.5 ML SYRINGE IVP PRN ×2 (03:22→15:24)
[2020-02-15 04:21] LABS: ABG Base Excess 15.9 mmol/L; ABG HCO3 39 mmol/L (21-25); ABG Oxygen Saturation 97.6 % (94-97); ABG PCO2 52 mmHg (35-45); ABG PH 7.49 (7.35-7.45); ABG PO2 82 mmHg (83-108); ABG TCO2 41 mmol/L (19-24)
[2020-02-15 04:24] LABS: Allen Test Performed? no
[2020-02-15 04:42] LABS: Anisocytosis Slight; Basophils # (A) 0.1 k/uL (0-0.2); Basophils % (A) 0 %; Eosinophils # (A) 0.1 k/uL (0-0.7); Eosinophils % (A) 1 %; HGB 10.2 gm/dL (11.4-16.0); Hypochromasia Marked; Lymphocytes # (A) 1.4 k/uL (1.0-4.8); Lymphocytes % (A) 11 %; MCH 29.7 pg (25.0-35.0); MCHC 30.8 g/dL (31.0-37.0); MCV 96.6 fL (80.0-100.0); Macrocytosis Slight; Mean Platelet Volume 8.1; Monocytes # (A) 0.4 k/uL (0-1.0); Monocytes % (A) 4 %; Neutrophils # (A) 10.3 k/uL (1.3-7.7); Neutrophils % (A) 84 %; Platelet Count 608 k/uL (150-450); RBC 3.42 m/uL (3.80-5.40); RDW 16.7 % (11.5-15.5); WBC 12.3 k/uL (3.8-10.6)
[2020-02-15] MEDS: NOREPINEPHRINE 4 MG in SODIUM CHLORIDE 0.9% 250 ML IV SCH (06:18)
[2020-02-15 06:29] LABS: ALT 22 U/L (4-34); AST 21 U/L (14-36); African American GFR (CKD) >90 (>60 ml/min/1.73 sqM); Albumin 2.3 g/dL (3.5-5.0); Alkaline Phosphatase 85 U/L (38-126); Blood Urea Nitrogen 45 mg/dL (7-17); Calcium 8.1 mg/dL (8.4-10.2); Chloride 104 mmol/L (98-107); Glucose 94 mg/dL (74-99); Non-African American GFR(CKD) >90 (>60 ml/min/1.73 sqM); Potassium 3.7 mmol/L (3.5-5.1); Sodium 141 mmol/L (137-145); Total Bilirubin 0.4 mg/dL (0.2-1.3); Total Protein 4.9 g/dL (6.3-8.2)
[2020-02-15 06:31] LABS: Glucose,Whole Blood 90 mg/dL (75-99)
[2020-02-15 06:35] LABS: Anion Gap -2 mmol/L; Carbon Dioxide 39 mmol/L (22-30)
[2020-02-15] MEDS: ALBUTEROL HFA INHALER INHALATION SCH ×4 (07:59→19:17)
[2020-02-15] MEDS ORDERED: POTASSIUM BICARBONATE/CIT AC 20 MEQ TABLET.EFF NG-TUBE SCH (08:00)
[2020-02-15 08:36] LABS: Glucose,Whole Blood 79 mg/dL (75-99)
[2020-02-15] MEDS: METOPROLOL TARTRATE 50 MG TAB PO SCH ×2 (08:37→20:57)
[2020-02-15] MEDS: CHLORHEXIDINE GLUCONATE 15 ML CUP MUCOUS MEM SCH ×2 (08:37→20:55)
[2020-02-15] MEDS: AMIODARONE 200 MG TAB PO SCH (08:37)
[2020-02-15] MEDS: CHOLECALCIFEROL 1,000 UNIT TAB PO SCH (08:37)
[2020-02-15] MEDS: ZINC SULFATE 220 MG CAP PO SCH (08:37)
[2020-02-15] MEDS: predniSONE 20 MG TAB PO SCH (08:37)
[2020-02-15] MEDS: QUEtiapine 50 MG TAB PO SCH ×2 (08:37→20:57)
[2020-02-15] MEDS: FUROSEMIDE 10 MG/ML 4 ML VIAL IV SCH (08:37)
[2020-02-15] MEDS: FAMOTIDINE 20 MG TAB PO SCH (08:38)
[2020-02-15] MEDS: ENOXAPARIN 100 MG/ML SYRINGE SQ SCH ×2 (08:38→20:55)
[2020-02-15] MEDS: ASCORBIC ACID 500 MG TAB PO SCH (08:38)
[2020-02-15] MEDS: INSULIN DETEMIR (LEVEMIR) 100 UNIT/ML SYR SQ SCH ×2 (09:43→20:57)
[2020-02-15] MEDS: CLEVIDIPINE BUTYRATE 25 MG in EMPTY BAG 1 BAG IV SCH (10:14)
[2020-02-15 11:49] LABS: Glucose,Whole Blood 118 mg/dL (75-99)
[2020-02-15 12:14] LABS: Glucose,Whole Blood 129 mg/dL (75-99)
--- NOTE | 2020-02-15 14:11 | P.PN ---
Subjective Progress Note Date: 02/15/20 Patient seen and examined at bedside. Patient remains on the vent with requirements PEEP at 12. Patient is sedated. Objective - Vital Signs Vital signs: Vital Signs Temp 97.4 F L 02/15/20 12:00 Pulse 69 02/15/20 13:00 Resp 26 H 02/15/20 13:00 BP 112/73 02/15/20 12:00 Pulse Ox 93 L 02/15/20 13:00 Intake & Output 02/14/20 02/15/20 02/15/20 18:59 06:59 18:59 Intake Total 1089.716 894.937 653.447 Output Total 2200 775 1095 Balance -1110.284 119.937 -441.553 Weight 81 kg Intake: IV 433 386 231 .9 @ KVO 250 350 210 Cefepime 1 gm In Sodium 50 Chloride 0.9% 50 ml @ 12. 5 mls/hr IVPB Q12HR [facility] Rx#:[id number] Fluconazole in NaCl,Iso- 100 Osm 200 mg In Saline 1 100ml.bag @ 100 mls/hr IVPB DAILY@1600 [facility] Rx#: [id number] pressure bags 33 36 21 Intake, IV Titration 170.716 151.937 98.447 Amount propofoL 1,000 mg In 170.716 151.937 98.447 Empty Bag 1 bag @ Titrate IV .Q0M [facility] Rx#: [id number] Tube Feeding 396 297 264 Other 90 60 60 Output: Urine 2200 775 1095 Other: Voiding Method Indwelling Catheter Indwelling Catheter Indwelling Catheter # Voids 1 ABP, PAP, CO, CI - Last Documented Arterial Blood Pressure 133/65 - Exam General: [non toxic], [no distress], [appears older than age] Derm: [warm], [dry] Head: [atraumatic], [normocephalic], [symmetric] Eyes: [EOMI], [no lid lag], [anicteric sclera] Mouth: [no lip lesion], [mucus membranes moist] Cardiovascular: [S1S2 reg], [no murmur], [positive posterior tibial pulse bilateral], Lungs: [ bilateral], [ rhonchi, no rales] , [no accessory muscle use] Abdominal: [soft], [ nontender to palpation], [no guarding], [no appreciable organomegaly] Ext: [no gross muscle atrophy], [+1edema], [no contractures] Neuro: [ CN II-XI grossly intact], [no focal neuro deficits] Psych: Sedated - Labs CBC & Chem 7: 02/15/20 04:15 02/15/20 04:15 Labs: Abnormal Lab Results - Last 24 Hours (Table) 02/14/20 02/15/20 02/15/20 Range/Units 17:17 00:43 04:15 WBC 12.3 H (3.8-10.6) k/uL RBC 3.42 L (3.80-5.40) m/uL Hgb 10.2 L (11.4-16.0) gm/dL Hct 33.0 L (34.0-46.0) % MCHC 30.8 L (31.0-37.0) g/dL RDW 16.7 H (11.5-15.5) % Plt Count 608 H (150-450) k/uL Neutrophils # 10.3 H (1.3-7.7) k/uL ABG pH (7.35-7.45) ABG pCO2 (35-45) mmHg ABG pO2 (83-108) mmHg ABG HCO3 (21-25) mmol/L ABG Total CO2 (19-24) mmol/L ABG O2 Saturation (94-97) % Carbon Dioxide (22-30) mmol/L BUN (7-17) mg/dL Creatinine (0.52-1.04) mg/dL POC Glucose (mg/dL) 137 H 136 H (75-99) mg/dL Calcium (8.4-10.2) mg/dL Total Protein (6.3-8.2) g/dL Albumin (3.5-5.0) g/dL 02/15/20 02/15/20 02/15/20 Range/Units 04:15 04:20 11:48 WBC (3.8-10.6) k/uL RBC (3.80-5.40) m/uL Hgb (11.4-16.0) gm/dL Hct (34.0-46.0) % MCHC (31.0-37.0) g/dL RDW (11.5-15.5) % Plt Count (150-450) k/uL Neutrophils # (1.3-7.7) k/uL ABG pH 7.49 H (7.35-7.45) ABG pCO2 52 H (35-45) mmHg ABG pO2 82 L (83-108) mmHg ABG HCO3 39 H (21-25) mmol/L ABG Total CO2 41 H (19-24) mmol/L ABG O2 Saturation 97.6 H (94-97) % Carbon Dioxide 39 H (22-30) mmol/L BUN 45 H (7-17) mg/dL Creatinine 0.40 L (0.52-1.04) mg/dL POC Glucose (mg/dL) 118 H (75-99) mg/dL Calcium 8.1 L (8.4-10.2) mg/dL Total Protein 4.9 L (6.3-8.2) g/dL Albumin 2.3 L (3.5-5.0) g/dL 02/15/20 Range/Units 12:13 WBC (3.8-10.6) k/uL RBC (3.80-5.40) m/uL Hgb (11.4-16.0) gm/dL Hct (34.0-46.0) % MCHC (31.0-37.0) g/dL RDW (11.5-15.5) % Plt Count (150-450) k/uL Neutrophils # (1.3-7.7) k/uL ABG pH (7.35-7.45) ABG pCO2 (35-45) mmHg ABG pO2 (83-108) mmHg ABG HCO3 (21-25) mmol/L ABG Total CO2 (19-24) mmol/L ABG O2 Saturation (94-97) % Carbon Dioxide (22-30) mmol/L BUN (7-17) mg/dL Creatinine (0.52-1.04) mg/dL POC Glucose (mg/dL) 129 H (75-99) mg/dL Calcium (8.4-10.2) mg/dL Total Protein (6.3-8.2) g/dL Albumin (3.5-5.0) g/dL Microbiology - Last 24 Hours (Table) 02/08/20 08:53 Blood Culture - Final Blood No Growth after 144 hours Assessment and Plan Plan: 79 year old woman with history of HTN, DVT presented with dyspnea and found to have acute hypoxemic respiratory failure secondary to COVID-19 positive status as well as pulmonary embolism discovered on admission. She was found to be in A Fib with RVR and was ultimately controlled with metoprolol and amiodarone. She developed ARDS during her hospitalization, and ultimately required mechanical ventilation. She was intubated on 01/15, and since that time has not been able to be weaned. 1. Acute Hypoxemic Respiratory Failure secondary to ARDS 2. ARDS secondary to COVID-19 3. Bicytopenia: Anemia/Thrombocytopenia 4. Anasarca 5. Pulmonary Embolism without cor pulmonale, History of DVT 6. Paroxysmal Atrial Fibrillation with RVR 7. Enterococcus and E. coli Complicated UTI resolved 8. Yeast in Urine Covid 19 pneumonia with acute hypoxic respiratory failure, ARDS - Failing weaning trials, now with trach/peg 02/03 - Completed Remdesivir on 01/15 - s/p Dexamethasone day #17 days completed now back on IV Solu-Medrol managed by ICU team - Status post convalescent plasma 01/14 - Continue zinc, vitamin C, vitamin D, Pepcid, and melatonin Labile Blood Pressure, currently on vasopressors - AM cortisol does not indicate adrenal insufficiency Anemia, multifactorial thrombocytopenia, likely reactive - 2 units pRBC since admission DIffuse Anasarca - IV Lasix managed by ICU team Pulmonary embolus without right ventricular strain, history of prior DVT - Lovenox A fib with RVR - lovenox, amio - Cardiology following Entercoccus and E coli UTI resolved -Status post treatment with Levaquin, stop date 01/31 -patient now has yeast in her urine -Diflucan started Thrombocytopenia KALYAN due to ATN with resultant metabolic acidosis and hyperphosphatemia, resolved Septic shock, resolved Hypokalemia, resolved DVT prophylaxis: Lovenox for PE Discussed with: Nursing, ICU team Anticipated discharge: 3-[address]: [facility]
--- NOTE | 2020-02-15 14:24 | P.PN ---
Subjective Progress Note Date: 02/15/20 Principal diagnosis: Acute hypoxic regular failure secondary to covid 19 related pneumonia. On today's evaluation of 01/12/2020, the patient is being seen in follow-up. As mentioned earlier, the patient was infected with jane virus Covid 19 and the patient had an acute Covid 19 related pneumonia with diffuse breath and pulmonary infiltrates. Subsequently, the patient had a CT angios of the chest that showed bilateral pulmonary infiltrates and groundglass opacities in add ition to pulmonary embolism involving mainly the right-sided pulmonary artery branches. Filling defect in the right pulmonary artery and segmental branches in addition to that there is a mild component of strain pattern. Nevertheless, tachycardic and short and a ejection fraction of 6065% and the patient had no enlargement of the right ventricle and there was no evidence of any pulmonary hypertension. Noted the patient oxidation is gradually gotten worse and currently the patient is on high flow oxygen at 6 L with an FiO2 of 85% and this was utilized to bring the saturation above 90%. The patient is on IV heparin with a therapeutic PTT of 58.7. Based on the acute jane virus Covid 19 i nfection, the patient had an LDH of 1455 and a CRP is at 47.9. The patient is having difficulty breathing with minimal amount of activity. Currently she is on bedrest. The patient has no pleurisy. No hemoptysis. Altered mentation. No other significant events overnight. Based on the worsening oxygenation, repeat chest x-ray was done and showed a patchy bilateral pulmonary infiltrates right more than left. No pleural effusion. The findings are essentially stable compared to yesterday's chest x-ray. On 01/18/2020, the patient remains intubated on a mechanical ventilator. This morning, the patient sedated with propofol and is calm and comfortable. Propofol is running at 50 mcg/kg per minute. The patient remained on assist control mode of ventilation. She is on a tidal volume of 451 and FiO2 of 50% with a PEEP of 12 and a rate of 14. The patient's blood gases showed a pH of 7.21 with episodes of 56 and pO2 of 126. The peak airway pressure is 30. The static airway pressure is 28. Chest x-ray remains unchanged. There is bilateral pulmonary infiltrates which remains essentially unchanged compared to yesterday. She has a triple lumen catheter. Her CVP is around 9. She did receive total of 2 L of IV fluids yesterday which both upper CVP and improved her blood pressure. She remains on a low dose norepinephrine infusion running at 0.04-respiratory KG per minute. She also has an acute kidney injury and a component of non-anion gap metabolic acidosis. Based on that, I gave her 2 A of sodium bicarbonate total of 100 mEq and the patient was also started on abicarb infusion. This improved her non-anion gap metabolic acidosis. The serum bicarb today is up to 24. Creatinine is at 1.6 with a BUN of 82. The patient meanwhile went into atrial fibrillation again with rapid ventricular response. Based on her hypotension, I opted to start the patient on amiodarone. I loaded her with a total of 150 mg of amiodarone bolus and I'm going to load completely over the next 24 hours. She is also on IV cefepime as an empiric antibiotic coverage. She is completed a course of Remdesivir ,, convalescent plasma 1 and the patient is also been on Decadron 6 mg every 24 hours. Reevaluated today on 01/26/20, patient remains in the ICU, intubated and mechanically ventilated. Ventilator settings are assist control rate of 18 tidal volume 450 FiO2 50% PEEP is 12. I did cut down the PEEP to 10 and increase the rate to 20. ABG today showed a pO2 of 98 pCO2 of 46 pH of 7.30. Patient is on IV fluid at 75 mL per hour, propofol at 40 mcg/kg/m, norepinephrine at 0.01 mcg/kg/m, amiodarone 0.5 mg per hour, patient is on Lovenox and on cefepime. Patient has a right subclavian triple-lumen catheter, and a right radial arterial line. Patient did receive 1 unit of convalescent plasma, and receivedremdesivir. Chest x-ray continues to show increase infiltrates with possibly a small left pleural effusion infiltrates are noted bilaterally., WBC count is 11.3 hemoglobin is 8.5. D-dimer is 9.45. BUN is 80 creatinine 1.29. I's are normal. LDH is 02/28/2007 and C-reactive protein is 45.6 Patient was reevaluated today on 01/20/20, remains in the ICU, remains intubated and mechanically ventilated. Ventilator settings are assist control rate of 20 tidal volume is 450 FiO2 is 50% and PEEP of 10. ABG showed a pO2 of 83 pCO2 of 40 pH of 7.37. Patient is on IV fluid at 50 mL per hour 0.9 normal saline on propofol at 40 mcg/kg/m, she is on tube feeding, and today I increased the PEEP down to 8. I plan to give the patient a weaning trial possibly with a pressure support of 8 and CPAP depending on her weaning. I have instructed that we hold propofol, assess weaning parameters, and proceed accordingly. Chest x-ray continues to show evidence of bilateral airspace disease, slight improvement compared to previous x-rays. CBC noted WBC count is 10 hemoglobin is 8.4 electrodes are normal renal profile showed a BUN of 80 creatinine of 1.05 Reevaluated today on 01/21/20, patient remains in the ICU, intubated and mechanically ventilated. Ventilator settings are assist control rate of 20 tidal volume is 450 FiO2 is 55% and PEEP is 12. Went ahead after reviewing the ABG on cut down the FiO2 to 50%. ABG showed a pO2 of 95 pCO2 of 42 pH of 7.38. Chest x-ray continues to show bilateral infiltrates, however the right side seems to be more affected than the left side. Patient remains on propofol at 40 mcg/kg/m, she is on enteral feeding, IV fluids at KVO, and remains on oral amiodarone, also remains on Lovenox. Patient was actually intubated on 01/15. Labs today showed relatively normal CBC, hemoglobin is 8.7. Electrolytes are normal except for bicarb of 21 chloride is 120 and potassium is 5.3. BUN is noted to be 80 and creatinine is 0.73. Hence her fluid was increased Reevaluated today on 01/22/20, patient remains in the ICU, intubated and mechanically ventilated. She is presently on assist control rate of 20 tidal volume is 450 FiO2 is 50% PEEP is 12. ABG showed a pO2 of 98 pCO2 of 42 pH of 7.40. Patient remains on propofol at 40 mcg/kg/m, I have recommended cutting the PEEP down to 8, Sats 50%, and I plan to give the patient hopefully today. Trial of pressure support and CPAP. Chest x-ray is basically unchanged compared to the chest x-ray yesterday, does have some infiltrates mostly in the right lung. Left lung seems to be less involved. WBC count today is 10.4 hemoglobin is 8.4, d-dimer is 4.5 to remains on therapeutic dose of Lovenox. Basic metabolic profile is normal. Patient remains on enteral feedings. Inflammatory markers are improving. Reevaluated today on 01/23/20, remains intubated and mechanically ventilated. Her assist control rate is 20 tidal volume is 450 FiO2 is 50% and PEEP is 8 ABG today showed a pO2 of 94 pCO2 of 40 pH of 7.42. Patient is on propofol at 10 mcg/kg/m, on tube feeding at goal, previously the patient failed sedation holiday, and she had to be placed on sedation and assist control mode of mechanical ventilation. Patient went into A. fib with RVR, last night, and today she is in A. fib but rate seems to be controlled. Her sodium is high today at 148, we'll try to corrected with increasing her free water intake, and we will likely awaken the patient today and possibly give her a trial of pressure support and CPAP. Chest x-ray is definitely showing some improvement in her scattered infiltrates. Compared to previous x-rays. Electrolytes were reviewed, her sodium is 148, and we'll try to corrected. Otherwise no significant abnormality on her labs WBC count is 11.2 hemoglobin is 8.4. Reevaluated today on 01/24/20, patient remains off sedation for the last 24 hours. However she remains vented, ventilator settings are assist control rate of 20 tidal volume is 450 FiO2 is 50% and PEEP of 8. ABG showed a pO2 of 91 pCO2 of 40 pH of 7.45. Patient is requiring clevidipine at 5 mg per hour. I was able to cut down her PEEP down to 5. Since her pO2 was 91. I recommended that we continue to hold sedation, however few hours later the patient became extremely agitated, had to give her Ativan, did not seem to control her agitation, and she did not seem to be appropriate, she was just agitated and thrashing coming asynchronous with the ventilator. Hence I recommended that she goes back on propofol. No chest x-ray done today. CBC showed a hemoglobin of 7.2 otherwise unremarkable. Sodium is down to 146, basic metabolic profile otherwise is normal. Patient was reevaluated today on 01/25/20. Remains in the ICU, intubated and mechanically ventilated. Her ventilator settings are assist control rate of 20 FiO2 is 70% PEEP was at 5, volume is 4. Tidal volume is 450 ABG today showed a pO2 of 87 pCO2 of 39 pH of 7.44. Yesterday patient was given a trial of weaning, however she became extremely restless and agitated. Had to be placed back on propofol, and she is now back on propofol at 10 mcg/kg/m. She is not requiring any pressors. She is on enteral feeding. And her hemoglobin today is noted to be low at 6.4, and I'm recommending a unit of packed RBCs to be transfused. She seems to be overusing blood from the site of the right subclavian triple-lumen catheter, went ahead and cut down her Lovenox to 60 mg subcu every 12 hours instead of 80 mg subcu every 12 hours. Chest x-ray, showed worsening bilateral multifocal infiltrates. And obviously the patient is not ready to be weaned again today. Hence I have increased her PEEP back to 10, and I plan to titrate her FiO2 down to 55% if possible. Discussed her condition wi th the today, and updated him on her status. Explained time that she is not ready to be weaned, and she will be kept sedated today. On 02/08/2020, the patient's condition has been worse and she is obviously decompensated. She became progressively more restless and agitated and asynchronous mechanical ventilator. The patient started losing volumes on the mechanical ventilator and the patient also became progressively more hypoxic. At a time of my arrival, the patient was breathing in the 40s, she's was not returning her volumes back and she was also running fever. The blood gases from today showed a pH of 7.55 with a pCO2 of 40 and pO2 of 55 and this was done on a VAC plus mode with a tidal volume of 650 and a PEEP of 8 with an FiO2 of 60% and at a time of 14. The chest x-ray from today shows no major interval change compared to the earlier chest x-ray. The tracheostomy tube is in a good location. The patient has bilateral pulmonary infiltrates mainly in the upper lobes and in the lower lobes and these findings are essentially unchanged compared to yesterday's chest x-ray. No significant orotracheal secretions. Her temperature max was at 102.4. The patient has no triple-lumen catheter. The patient is a PICC line in the right upper extremity. She has a Qureshi catheter. She has a left radial arterial line. She is receiving bolus feeding for nutritional support. She is on Lovenox 90 mg subcu every 12 hours regarding a previous history of pulmonary embolism. She is on no pressors for now. Based on this decompensation, the patient was started back comfortable for which is running at 20 mcg/kg per minute. Morning hemoglobin down to 6.7 from 7.1. Note that the patient's has shown no signs of any GI bleeding. A unit of packed RBC was ordered for this patient. S4 mental status, the patient was taken off the sedation for approximately 48 hours. She was opening her eyes. She was grimacing. She was still not following any commands and I did not see any recovery or significant recovery in her mentation while being off sedation. Is doing some grimacing to deep painful stimulation. Reevaluated today on 02/09/20, patient remains intubated and mechanically ventilated, she has a trach and PEG tube in place, patient underwent tracheostomy and PEG tube placement on 02/14/20, she is now on pressure control mode of mechanical ventilation, pressure is 22, rate is set at 26. Inspiratory time is 1 second. She is on 60% FiO2, she is on propofol at 55 mcg/kg/m, fentanyl 1 mcg/kg/h, and she is also on amiodarone at 1 mg drip. Patient is receiving bolus feedings. 150 ML every 4 hours, and she has free water flushes given. Remains on cefepime and vancomycin. Her urine output is marginal, hence I recommended a fluid bolus and if no improvement to be given Lasix. However the nurses changed her Qureshi, and she was able to put out at least a liter with Qureshi placement. Added Solu-Medrol 60 mg IV push every 6 hours. Chest x-ray continues to show diffuse interstitial infiltrates bilaterally. ABG today showed a pO2 of 64 pCO2 of 48 pH of 7.44 this is on FiO2 of 60%. CBC showed WBC count of 8 hemoglobin is 7.6. Basic metabolic profile is relatively normal. Pro-calcitonin is elevated at 0.32. Hence antibiotics will be continued Patient was reevaluated today on 02/10/20, remains in the ICU, intubated and mechanically ventilated. Her ventilator settings are pressure control set at 22, rate is 26, FiO2 is 60%, and PEEP of 12. Inspiratory time is 1 second. ABG today showed a pO2 of 67 pCO2 of 48 pH of 7.42. Patient is still on amiodarone at 0.5 mg/m, norepinephrine at 0.02 mcg/kg/h, propofol at 30 mcg/kg/m, and fentanyl 20 mcg/kg/h. Patient is quite sedated, unable to assess mental status, however I do plan to hold sedation today, and assess mental status at least briefly. Patient has been receiving treatment for urinary tract infection, and I will go ahead and discontinue vancomycin, and continue cefepime repeat urine cultures were ordered patient remains on bolus tube feeding, receiving vital HPI at 170 ML every 6 hours plus free water flushes every 4 hours. Chest x-ray continues to show diffuse interstitial infiltrates bilaterally. Much improvement noted on the chest x-ray. Reevaluated today on 02/11/20, patient remains in the ICU, intubated and mechanically ventilated, patient is receiving mechanical ventilation through tracheostomy. And she is receiving enteral feeding through PEG tube. Her vent ilator settings are pressure control set at 22, rate is 26, FiO2 is 60% and PEEP is 12. ABG showed a pO2 of 78 pCO2 of 53 pH of 7.40. Patient is on propofol at 30 mcg/kg/m, IV fluid to KVO, fentanyl 12 mcg/kg/m, she is not requiring any pressors, she is hemodynamically stable. Try today to discontinue sedation and assessment of sinus, however off fentanyl and on propofol, patient was noted to be extremely agitated, restless, could not follow any instructions, her blood pressure was over 200 systolic, and could not get the patient to respond to any stimuli. Tried patient on Nimbex, did not seem to do well, continued to desaturate on Nimbex, and she was agonal with mechanical ventilation. Hence the patient back on propofol, and will decide on the dose of fentanyl possibly cutting down significantly. Chest x-ray continues to show diffuse interstitial infiltrates, not much change since admission. Reevaluated today on 02/12/20, patient remains on mechanical ventilation, she is on pressure control mode of mechanical ventilation, pressure is set at 22, rate is 26, inspiratory time was cut down from 1-0.8, her FiO2 is 80%, PEEP is at 12. ABG showed a pO2 of 96 pCO2 46 pH of 7.48. Patient is on propofol at 50 mcg/kg/m, IV fluid at KVO, she is also on clevidipine for elevated blood pressure at 3 mg per hour. Patient is on bolus feedings, failed sedation yesterday miserably, and today she remains extremely restless agitated even with 50 mcg/kg off propofol. Hence the dose will be increased. Patient is on Dilaudid when necessary. Will go ahead and give the patient a trial of Seroquel today, and hopefully cut down on propofol. We will also arrange for a CT of the brain, and I have asked the nurses to titrate her FiO2 down and maintain O2 saturation above 90%. Brain CT showed no acute intracranial process, chest x- ray continues to show diffuse interstitial infiltrates, right more so than left. CBC today is relatively normal electrolytes are normal renal profile is normal. Reevaluated today on 02/13/20, patient remains in the ICU, intubated and mechanically ventilated. Patient is on pressure control mode of mechanical ventilation, pC is 22,ti is 0.8. FiO2 is 80% PEEP is 12 however considering the patient is saturating nicely I cut down the FiO2 to 70% and instructed to taper down maintain O2 sats is 90% ABG today showed a pO2 of 119 pCO2 of 56 pH of 7.45 . Electrolytes are normal except for elevated bicarb of 39 renal profile is normal. CBC is relatively normal. Hemoglobin is 8.1, WBC count is 7.5. His x- ray continues to show bilateral interstitial lung disease. Consistent with covid19 pneumonitis, and underlying ARDS patient is maintained on propofol, 40 mcg/kg/m, her fentanyl was discontinued, and recently we started the patient on Seroquel hoping to taper down propofol and eventually start weaning trials on this patient. Reevaluated today on 02/14/20, patient remains in the ICU, intubated and mechanically ventilated. Remains on pressure control mode of mechanical ventilation, pressure control at 22, inspiratory time is 0.8, FiO2 is 60%, PEEP is 12. ABG today showed a pO2 of 86 pCO2 of 49 pH of 7.51. Chest x-ray continues to show bilateral interstitial infiltrates. Patient is now on propofol at 30 mcg/kg/m, she is receiving enteral feeding via PEG tube, patient is also on Dilaudid when necessary, off sedation the patient continues to have significant rigidity, and agitation, will go ahead and switch the patient from Solu-Medrol to a lower dose of prednisone, and assess if that would help her mental status. Chest x-ray is not significantly changed. Her ABG is showing improvement hence will cut down her FiO2 down to 50% if possible. ECG is basically about the same, electrolytes are normal. Renal Profile is relatively normal except for BUN of 50 and creatinine is 0.44 Reevaluated today on 02/15/20, patient remains in the ICU, intubated and mechanically ventilated. Remains on pressure control mode of mechanical ventilation, pressure set at 22, inspiratory time is 0.8 seconds, rate is 26, FiO2 is 60% and PEEP is 12. ABG showed a pO2 of 82 pCO2 of 52 pH of 7.49, hence suggested cutting down the FiO2 to 55% and continue to titrate further down to maybe 50% if possible. Patient remains on propofol at 50 mcg/kg/m, remains on enteral feeding, also on IV fluid at 3 0 mL per hour. Chest x-ray continues to show bilateral interstitial infiltrates. Multiple attempts were made to get the patient off propofol we've and attempted to put the patient on Precedex, and could not get to adequately assess her mental status. Off propofol, the patient becomes extremely agitated and would not follow any instructions. Patient is quite encephalopathic, seems to do best with propofol, and we have added Seroquel to maintain her calm during any trials of weaning down the line. Patient is clearly difficult to wean, and the main issue seems to be related to her metabolic encephalopathy. She is still encephalopathic, and gets extremely agitated, and does not follow any instructions off propofol and even on Precedex could not accomplish much. Objective - Vital Signs Vital signs: Vital Signs Temp 97.4 F L 02/15/20 12:00 Pulse 69 02/15/20 13:00 Resp 26 H 02/15/20 13:00 BP 112/73 02/15/20 12:00 Pulse Ox 93 L 02/15/20 13:00 Intake & Output 02/14/20 02/15/20 02/15/20 18:59 06:59 18:59 Intake Total 1089.716 894.937 653.447 Output Total 2200 775 1095 Balance -1110.284 119.937 -441.553 Weight 81 kg Intake: IV 433 386 231 .9 @ KVO 250 350 210 Cefepime 1 gm In Sodium 50 Chloride 0.9% 50 ml @ 12. 5 mls/hr IVPB Q12HR [facility] Rx#:[id number] Fluconazole in NaCl,Iso- 100 Osm 200 mg In Saline 1 100ml.bag @ 100 mls/hr IVPB DAILY@1600 [facility] Rx#: [id number] pressure bags 33 36 21 Intake, IV Titration 170.716 151.937 98.447 Amount propofoL 1,000 mg In 170.716 151.937 98.447 Empty Bag 1 bag @ Titrate IV .Q0M [facility] Rx#: [id number] Tube Feeding 396 297 264 Other 90 60 60 Output: Urine 2200 775 1095 Other: Voiding Method Indwelling Catheter Indwelling Catheter Indwelling Catheter # Voids 1 ABP, PAP, CO, CI - Last Documented Arterial Blood Pressure 133/65 - Exam GENERAL EXAM: Revealed 79-year-old female intubated, on mechanical ventilation. HEAD: Atraumatic, normocephalic. Tracheostomy is intact. HEENT: PERRLA, EOMI, no icterus, no neck masses, no JVD, no stridor. Moist mucous membranes. .CHEST: No chest wall deformity. LUNGS: Crackles noted bilaterally. Symmetrical chest expansion. CVS: Irregular rhythm, no S3 gallop. ABDOMEN: No hepatosplenomegaly, normal bowel sounds, no guarding or rigidity. PEG tube is intact SPINE: No scoliosis or deformity SKIN: No rashes CENTRAL NERVOUS SYSTEM: Cannot assess, on propofol, remains quite encephalopathic off propofol. EXTREMITIES: No clubbing, trace of bipedal edema, no cyanosis. - Labs CBC & Chem 7: 02/15/20 04:15 02/15/20 04:15 Labs: Abnormal Lab Results - Last 24 Hours (Table) 02/14/20 02/15/20 02/15/20 Range/Units 17:17 00:43 04:15 WBC 12.3 H (3.8-10.6) k/uL RBC 3.42 L (3.80-5.40) m/uL Hgb 10.2 L (11.4-16.0) gm/dL Hct 33.0 L (34.0-46.0) % MCHC 30.8 L (31.0-37.0) g/dL RDW 16.7 H (11.5-15.5) % Plt Count 608 H (150-450) k/uL Neutrophils # 10.3 H (1.3-7.7) k/uL ABG pH (7.35-7.45) ABG pCO2 (35-45) mmHg ABG pO2 (83-108) mmHg ABG HCO3 (21-25) mmol/L ABG Total CO2 (19-24) mmol/L ABG O2 Saturation (94-97) % Carbon Dioxide (22-30) mmol/L BUN (7-17) mg/dL Creatinine (0.52-1.04) mg/dL POC Glucose (mg/dL) 137 H 136 H (75-99) mg/dL Calcium (8.4-10.2) mg/dL Total Protein (6.3-8.2) g/dL Albumin (3.5-5.0) g/dL 02/15/20 02/15/20 02/15/20 Range/Units 04:15 04:20 11:48 WBC (3.8-10.6) k/uL RBC (3.80-5.40) m/uL Hgb (11.4-16.0) gm/dL Hct (34.0-46.0) % MCHC (31.0-37.0) g/dL RDW (11.5-15.5) % Plt Count (150-450) k/uL Neutrophils # (1.3-7.7) k/uL ABG pH 7.49 H (7.35-7.45) ABG pCO2 52 H (35-45) mmHg ABG pO2 82 L (83-108) mmHg ABG HCO3 39 H (21-25) mmol/L ABG Total CO2 41 H (19-24) mmol/L ABG O2 Saturation 97.6 H (94-97) % Carbon Dioxide 39 H (22-30) mmol/L BUN 45 H (7-17) mg/dL Creatinine 0.40 L (0.52-1.04) mg/dL POC Glucose (mg/dL) 118 H (75-99) mg/dL Calcium 8.1 L (8.4-10.2) mg/dL Total Protein 4.9 L (6.3-8.2) g/dL Albumin 2.3 L (3.5-5.0) g/dL 02/15/20 Range/Units 12:13 WBC (3.8-10.6) k/uL RBC (3.80-5.40) m/uL Hgb (11.4-16.0) gm/dL Hct (34.0-46.0) % MCHC (31.0-37.0) g/dL RDW (11.5-15.5) % Plt Count (150-450) k/uL Neutrophils # (1.3-7.7) k/uL ABG pH (7.35-7.45) ABG pCO2 (35-45) mmHg ABG pO2 (83-108) mmHg ABG HCO3 (21-25) mmol/L ABG Total CO2 (19-24) mmol/L ABG O2 Saturation (94-97) % Carbon Dioxide (22-30) mmol/L BUN (7-17) mg/dL Creatinine (0.52-1.04) mg/dL POC Glucose (mg/dL) 129 H (75-99) mg/dL Calcium (8.4-10.2) mg/dL Total Protein (6.3-8.2) g/dL Albumin (3.5-5.0) g/dL Microbiology - Last 24 Hours (Table) 02/08/20 08:53 Blood Culture - Final Blood No Growth after 144 hours Assessment and Plan Assessment: Impression: Acute hypoxic respiratory failure with bilateral pneumonia and ARDS. secondary to Covid 19 pneumonitis. Acute right sided pulmonary embolism and hypercoagulability secondary to Covid 19 infection. . Recurrent atrial fibrillation, maintained on amiodarone. Remote history of deep vein thrombosis patient has been on Xarelto on outpatient basis. Acute kidney injury. Resolved. Elevated d-dimer. on Xarelto. Hypercoagulable state. Contributing to her pulmonary embolism. Suspect acute toxic metabolic encephalopathy, related to her Covid [address] of the brain is nondiagnostic. Chronic anemia, multifactorial. Status post tracheostomy and PEG tube placement on 02/04/20 Recommendation: Continue pressure control mode of mechanical ventilation. Decrease FiO2 down to 55%. Daily interruption of sedation and assessment of mental status Continue Seroquel and titrate propofol accordingly. Able to decrease propofol to 50 mcg/kg/m since Seroquel was added. Continue prednisone at 20 mg daily and tapered down on a daily basis. Continue nutritional support. Via PEG. Patient is on bolus feedings. Continue anticoagulation therapy. Continue Covid 19 cocktail treatment. Continue amiodarone. Continue GI prophylaxis. Continue to monitor the patient in the ICU, she is critically ill, Critical care time is over 30 minutes. Time with Patient: Greater than 30
[2020-02-15] MEDS: FLUCONAZOLE IN NACL,ISO-OSM 200 MG in SALINE 1 100ML.BAG IVPB SCH (15:08)
[2020-02-15 17:12] LABS: Glucose,Whole Blood 177 mg/dL (75-99)
[2020-02-15 20:40] LABS: Glucose,Whole Blood 154 mg/dL (75-99)
[2020-02-15] MEDS: MELATONIN 5 MG TABLET PO SCH (20:57)
[2020-02-16 00:34] LABS: Glucose,Whole Blood 112 mg/dL (75-99)
[2020-02-16] MEDS: INSULIN ASPART (NovoLOG) 100 UNIT/ML VIAL SQ SCH ×4 (00:51→17:20)
[2020-02-16 04:28] LABS: Anisocytosis Slight; Basophils # (A) 0.1 k/uL (0-0.2); Basophils % (A) 1 %; Eosinophils # (A) 0.3 k/uL (0-0.7); Eosinophils % (A) 3 %; HGB 10.6 gm/dL (11.4-16.0); Hypochromasia Marked; Lymphocytes # (A) 1.1 k/uL (1.0-4.8); Lymphocytes % (A) 10 %; MCH 28.7 pg (25.0-35.0); MCHC 29.5 g/dL (31.0-37.0); MCV 97.3 fL (80.0-100.0); Macrocytosis Slight; Mean Platelet Volume 7.8; Monocytes # (A) 0.4 k/uL (0-1.0); Monocytes % (A) 3 %; Neutrophils # (A) 9.6 k/uL (1.3-7.7); Neutrophils % (A) 83 %; Platelet Count 613 k/uL (150-450); RDW 16.8 % (11.5-15.5); WBC 11.5 k/uL (3.8-10.6)
[2020-02-16 04:34] LABS: ALT 23 U/L (4-34); AST 21 U/L (14-36); African American GFR (CKD) >90 (>60 ml/min/1.73 sqM); Albumin 2.4 g/dL (3.5-5.0); Alkaline Phosphatase 88 U/L (38-126); Blood Urea Nitrogen 40 mg/dL (7-17); Calcium 8.4 mg/dL (8.4-10.2); Chloride 103 mmol/L (98-107); Glucose 103 mg/dL (74-99); Non-African American GFR(CKD) >90 (>60 ml/min/1.73 sqM); Potassium 3.6 mmol/L (3.5-5.1); Sodium 142 mmol/L (137-145); Total Bilirubin 0.5 mg/dL (0.2-1.3)
[2020-02-16 04:40] LABS: Anion Gap -2 mmol/L
[2020-02-16 04:44] LABS: Carbon Dioxide 41 mmol/L (22-30)
[2020-02-16 05:13] LABS: ABG Oxygen Saturation 94.6 % (94-97); ABG PCO2 48 mmHg (35-45); ABG PH 7.53 (7.35-7.45); ABG PO2 68 mmHg (83-108); ABG TCO2 41 mmol/L (19-24)
[2020-02-16 05:45] LABS: Allen Test Performed? no
[2020-02-16 06:42] LABS: Glucose,Whole Blood 108 mg/dL (75-99)
[2020-02-16] MEDS ORDERED: POTASSIUM BICARBONATE/CIT AC 20 MEQ TABLET.EFF NG-TUBE SCH (07:00)
--- NOTE | 2020-02-16 07:20 | XR ---
EXAMINATION TYPE: XR chest 1V portable DATE OF EXAM: 02/16/2020 HISTORY: Shortness of breath. COMPARISON: 02/14/2020 TECHNIQUE: Single view of the chest is submitted. FINDINGS: Demonstrated are scattered senescent parenchymal change. Patchy airspace infiltrates persist throughout both lung phillips. Right-sided PICC line and tracheosto my tube unchanged in position. The heart is stable. Hilar and mediastinal structures are within normal limits. Degenerative changes are seen of the dorsal spine. IMPRESSION: 1. Patchy airspace infiltrates persist throughout both lung phillips.
[2020-02-16] MEDS: ALBUTEROL HFA INHALER INHALATION SCH ×4 (07:26→19:07)
[2020-02-16] MEDS: QUEtiapine 50 MG TAB PO SCH (08:01)
[2020-02-16] MEDS: CHOLECALCIFEROL 1,000 UNIT TAB PO SCH (08:01)
[2020-02-16] MEDS: METOPROLOL TARTRATE 50 MG TAB PO SCH ×2 (08:01→21:15)
[2020-02-16] MEDS: predniSONE 20 MG TAB PO SCH (08:01)
[2020-02-16] MEDS: AMIODARONE 200 MG TAB PO SCH (08:01)
[2020-02-16] MEDS: FAMOTIDINE 20 MG TAB PO SCH (08:01)
[2020-02-16] MEDS: CHLORHEXIDINE GLUCONATE 15 ML CUP MUCOUS MEM SCH ×2 (08:01→21:15)
[2020-02-16] MEDS: ASCORBIC ACID 500 MG TAB PO SCH (08:01)
[2020-02-16] MEDS: FUROSEMIDE 10 MG/ML 4 ML VIAL IV SCH (08:01)
[2020-02-16] MEDS: ZINC SULFATE 220 MG CAP PO SCH (08:02)
[2020-02-16] MEDS: ENOXAPARIN 100 MG/ML SYRINGE SQ SCH ×2 (08:02→21:15)
[2020-02-16] MEDS: NOREPINEPHRINE 4 MG in SODIUM CHLORIDE 0.9% 250 ML IV SCH ×2 (08:16→10:21)
[2020-02-16] MEDS: INSULIN DETEMIR (LEVEMIR) 100 UNIT/ML SYR SQ SCH ×2 (08:50→21:15)
[2020-02-16] MEDS ORDERED: SODIUM CHLORIDE 0.9% 500 ML 500 ML IV ONE (10:23)
[2020-02-16 10:52] LABS: ABG HCO3 39 mmol/L (21-25); ABG Oxygen Saturation 99.5 % (94-97); ABG PCO2 48 mmHg (35-45); ABG PH 7.52 (7.35-7.45); ABG PO2 187 mmHg (83-108); ABG TCO2 40 mmol/L (19-24); Allen Test Performed? Yes
[2020-02-16] MEDS: CLEVIDIPINE BUTYRATE 25 MG in EMPTY BAG 1 BAG IV SCH (11:11)
--- NOTE | 2020-02-16 12:02 | XR ---
EXAMINATION TYPE: XR chest 1V portable DATE OF EXAM: 02/16/2020 COMPARISON: 02/16/2020 HISTORY: SOB, Follow Up FINDINGS: Endotracheal tube is unchanged in position. There is evidence of pneumomediastinum and subcutaneous e mphysema overlying the right neck. I do not see evidence for sizable pneumothorax. Patchy perihilar and basilar infiltrates persist unchanged. No hilar or mediastinal mass. IMPRESSION: 1. There is evidence of pneumomediastinum and subcutaneous emphysema overlying the right neck. I do not see evidence for sizable pneumothorax.
--- NOTE | 2020-02-16 12:06 | P.PN ---
Subjective Progress Note Date: 02/16/20 CHIEF COMPLAINT: Covid 19 pneumonia HISTORY OF PRESENT ILLNESS: Patient remains in the ICU and on mechanical ventilation and is sedated. She is requiring Levophed. Patient is status post trach and PEG tube placement. Patient is currently tolerating bolus tube feedings. Patient has been having intermittent leaking from trach cuff. She had a bowel movement. Patient is afebrile. WBC 11.5 PHYSICAL EXAM: VITAL SIGNS: Reviewed. GENERAL: Well-developed in no acute distress. HEENT: No sclera icterus. Extraocular movements grossly intact. Moist buccal mucosa. Head is atraumatic, normocephalic. Tracheostomy site clean dry and intact ABDOMEN: Soft. Nondistended. Nontender. PEG tube site clean dry and intact NEUROLOGIC: Patient is intubated and sedated ASSESSMENT: 1. Acute hypoxic respiratory failure status post tracheostomy placement 2. Severe protein calorie malnutrition status post PEG tube placement 3. Acute hypoxic respiratory failure with Covid 19 pneumonia and pulmonary em bolism 4. Intermittent tracheostomy cuff leaking PLAN: -Continue tube feedings -Continue supportive care -We'll continue to observe tracheostomy cuff intermittent leaking Physician Slot Floor Person note has been reviewed by physician. Signing provider agrees with the documented findings, assessment, and plan of care. Objective - Vital Signs Vital signs: Vital Signs Temp 97.9 F 02/16/20 08:30 Pulse 80 02/16/20 11:10 Resp 30 H 02/16/20 11:10 BP 97/66 02/16/20 11:10 Pulse Ox 98 02/16/20 11:10 Intake & Output 02/15/20 02/16/20 02/16/20 18:59 06:59 18:59 Intake Total 8754.698 9248.239 876.194 Output Total 1920 699 870 Balance -733.514 387.239 6.194 Weight 79.4 kg 79.4 kg Intake: IV 476 396 645 .9 @ KVO 340 360 130 Fluconazole in NaCl,Iso- 100 Osm 200 mg In Saline 1 100ml.bag @ 100 mls/hr IVPB DAILY@1600 [facility] Rx#: [id number] Sodium Chloride 0.9% 500 500 ml 500 ml @ 999 mls/hr IV .Q31M [facility] Rx#:[id number] pressure bags 36 36 15 Intake, IV Titration 191.486 204.239 72.194 Amount Norepinephrine 4 mg In 2.056 90.563 21.100 Sodium Chloride 0.9% 250 ml @ 0.05 MCG/KG/MIN 16. 231 mls/hr IV .[id number] [facility] Rx#:[id number] propofoL 1,000 mg In 189.430 113.676 51.094 Empty Bag 1 bag @ Titrate IV .Q0M [facility] Rx#: [id number] Tube Feeding 429 396 99 Other 90 90 60 Output: Urine 0770 119 870 Other: Voiding Method Indwelling Catheter Indwelling Catheter Indwelling Catheter # Voids 1 1 ABP, PAP, CO, CI - Last Documented Arterial Blood Pressure 120/67 - Labs CBC & Chem 7: 02/16/20 04:00 02/16/20 04:00 Labs: Abnormal Lab Results - Last 24 Hours (Table) 02/15/20 02/15/20 02/15/20 Range/Units 12:13 17:10 20:38 WBC (3.8-10.6) k/uL RBC (3.80-5.40) m/uL Hgb (11.4-16.0) gm/dL MCHC (31.0-37.0) g/dL RDW (11.5-15.5) % Plt Count (150-450) k/uL Neutrophils # (1.3-7.7) k/uL ABG pH (7.35-7.45) ABG pCO2 (35-45) mmHg ABG pO2 (83-108) mmHg ABG HCO3 (21-25) mmol/L ABG Total CO2 (19-24) mmol/L ABG O2 Saturation (94-97) % Carbon Dioxide (22-30) mmol/L BUN (7-17) mg/dL Creatinine (0.52-1.04) mg/dL Glucose (74-99) mg/dL POC Glucose (mg/dL) 129 H 177 H 154 H (75-99) mg/dL Total Protein (6.3-8.2) g/dL Albumin (3.5-5.0) g/dL 02/16/20 02/16/20 02/16/20 Range/Units 00:32 04:00 04:00 WBC 11.5 H (3.8-10.6) k/uL RBC 3.70 L (3.80-5.40) m/uL Hgb 10.6 L (11.4-16.0) gm/dL MCHC 29.5 L (31.0-37.0) g/dL RDW 16.8 H (11.5-15.5) % Plt Count 613 H (150-450) k/uL Neutrophils # 9.6 H (1.3-7.7) k/uL ABG pH (7.35-7.45) ABG pCO2 (35-45) mmHg ABG pO2 (83-108) mmHg ABG HCO3 (21-25) mmol/L ABG Total CO2 (19-24) mmol/L ABG O2 Saturation (94-97) % Carbon Dioxide 41 H* (22-30) mmol/L BUN 40 H (7-17) mg/dL Creatinine 0.45 L (0.52-1.04) mg/dL Glucose 103 H (74-99) mg/dL POC Glucose (mg/dL) 112 H (75-99) mg/dL Total Protein 5.0 L (6.3-8.2) g/dL Albumin 2.4 L (3.5-5.0) g/dL 02/16/20 02/16/20 02/16/20 Range/Units 05:11 06:40 10:50 WBC (3.8-10.6) k/uL RBC (3.80-5.40) m/uL Hgb (11.4-16.0) gm/dL MCHC (31.0-37.0) g/dL RDW (11.5-15.5) % Plt Count (150-450) k/uL Neutrophils # (1.3-7.7) k/uL ABG pH 7.53 H 7.52 H (7.35-7.45) ABG pCO2 48 H 48 H (35-45) mmHg ABG pO2 68 L 187 H (83-108) mmHg ABG HCO3 40 H* 39 H (21-25) mmol/L ABG Total CO2 41 H 40 H (19-24) mmol/L ABG O2 Saturation 99.5 H (94-97) % Carbon Dioxide (22-30) mmol/L BUN (7-17) mg/dL Creatinine (0.52-1.04) mg/dL Glucose (74-99) mg/dL POC Glucose (mg/dL) 108 H (75-99) mg/dL Total Protein (6.3-8.2) g/dL Albumin (3.5-5.0) g/dL
--- NOTE | 2020-02-16 12:13 | PN ---
PROGRESS NOTE PULMONARY/CRITICAL CARE PROGRESS NOTE: DATE OF SERVICE: 02/16/2020 Critical care time 34 minutes. This is a patient who was admitted way back on January 09, 2020 for COVID-19 pneumonia with acute hypoxemic respiratory failure. She was also admitted with a diagnosis of pulmonary embolism. The patient had failure to wean from mechanical ventilation after long-term intubation and mechanical ventilation, and she eventually underwent tracheostomy and PEG tube placement on February 04, [address] Gomez. Currently, the patient is on the pressure assist-control modality. The pressure set is 22 cm of water, inspiratory time of 0.8 seconds. Respiratory rate 26, FiO2 of 55%, PEEP of 12. On those gases, the PO2 was 68, pCO2 of 48, and pH of 7.53. The patient is getting saline at KVO, propofol at 30 mcg/kg per minute and norepinephrine which is on hold. Vital high-protein, which is a 33 mL now, which is goal. Based on the fact that the patient was becoming more prerenal alkalotic, we are going to DC the Lasix. We attempted VC plus modality. The patient appeared to be a bit more stable on this modality. The patient was placed on a targeted tidal volume of 350, inspiratory time of 0.8 seconds along with a rate of 26 breaths per minute, and FiO2 of 55%, PEEP which is increased to 16. A repeat blood gas was done. The FiO2 by the way was also increased to 100% because of some desaturation. Repeat blood gases showed a pO2 of 187, pCO2 of 48, and pH of 7.52. We will start dropping the FiO2 down leaving the PEEP of 16. The patient appeared to be much more synchronous on the ventilator with this modality. Current vital signs reviewed. Temperature is 97.9, heart rate 80, respiratory rate 30, blood pressure 97/66 mean 76, and saturations are 98% on 80% FiO2 now. HEENT: Examination is grossly unremarkable. NECK: Supple, full range of motion. There is a midline tracheostomy. CARDIOVASCULAR: Examination reveals regular rhythm and rate. Heart rate 80. S1, S2 normal. LUNGS: Reveal diffuse coarse bilateral rhonchi. Breath sounds equal. No crackles. ABDOMEN: Soft, bowel sounds are heard. There is a PEG tube in place. EXTREMITIES: Intact. No cyanosis, clubbing, or edema. SKIN: Without rash. NEUROLOGIC: Examination could not be adequately assessed as the patient is sedated on propofol at 30 mcg/kg per minute. LABS: Reviewed. White count 11.5, hemoglobin 10.6, hematocrit 36.0, platelet count 613,000. Blood gases have been noted. Sodium 142, potassium 3.6, chloride 103, CO2 of 41, BUN and creatinine were 40 and 0.5. Microbiology is essentially negative save for E coli, Enterococcus faecalis in the urine way back on January 16. Those infections were treated. A chest x-ray done on February 15 shows patchy air space opacities, which are unchanged. MEDICATIONS: Reviewed. The patient is on Tylenol, albuterol inhaler, amiodarone, vitamin C, chlorhexidine, cholecalciferol, Cleviprex p.r.n., Lovenox, famotidine, fluconazole, hydralazine, Dilaudid, insulin, magnesium replacement, melatonin, metoprolol, Narcan, norepinephrine as needed, potassium replacement protocol, prednisone, propofol, Seroquel, and zinc. ASSESSMENT: 1. Acute hypoxemic respiratory failure secondary to bilateral COVID-19 pneumonia/pneumonitis, with subsequent development of acute respiratory distress syndrome, and failure to wean from mechanical ventilation. 2. Status post tracheostomy and PEG tube placement on February 03. 3. Acute right-sided pulmonary embolism, likely secondary to hypercoagulable state from the patient's known history of COVID-19 infection. 4. Recurrent atrial fibrillation. 5. Remote history of deep venous thrombosis. 6. Acute kidney injury. 7. Hypercoagulable state. 8. Toxic/metabolic encephalopathy. 9. Chronic anemia. 10.Failure to wean from mechanical ventilation. PLAN: The patient was switched from pressure assist control to pressure regulated volume control ventilation. We were able to oxygenate the patient better and make the patient more synchronous on this modality. The PEEP was increased from 12-16. The FiO2 is trans increased up to 100%. That will be weaned down. The patient remains on propofol and tube feeds. The patient's norepinephrine is currently on hold. Unnecessary medications will be discontinued. Overall prognosis remains poor. Will continue to follow. Likelihood of recovery is extremely small. Critical care time 34 minutes. MMODL / IJN: [id number] /
[2020-02-16] MEDS: QUEtiapine 100 MG TAB PO SCH ×2 (15:20→21:15)
--- NOTE | 2020-02-16 16:23 | P.PN ---
Subjective Patient seen and examined at bedside. Patient remains on the vent with requirements PEEP at 12. Patient is sedated and on levophed. Objective - Vital Signs Vital signs: Vital Signs Temp 98.4 F 02/16/20 12:00 Pulse 65 02/16/20 12:40 Resp 31 H 02/16/20 16:00 BP 108/67 02/16/20 12:40 Pulse Ox 98 02/16/20 12:40 Intake & Output 02/15/20 02/16/20 02/16/20 18:59 06:59 18:59 Intake Total 5291.887 2111.239 972.194 Output Total 1920 699 945 Balance -733.514 387.239 27.194 Weight 79.4 kg 79.4 kg Intake: IV 476 396 678 .9 @ KVO 340 360 160 Fluconazole in NaCl,Iso- 100 Osm 200 mg In Saline 1 100ml.bag @ 100 mls/hr IVPB DAILY@1600 [facility] Rx#: [id number] Sodium Chloride 0.9% 500 500 ml 500 ml @ 999 mls/hr IV .Q31M [facility] Rx#:[id number] pressure bags 36 36 18 Intake, IV Titration 191.486 204.239 72.194 Amount Norepinephrine 4 mg In 2.056 90.563 21.100 Sodium Chloride 0.9% 250 ml @ 0.05 MCG/KG/MIN 16. 231 mls/hr IV .[id number] [facility] Rx#:[id number] propofoL 1,000 mg In 189.430 113.676 51.094 Empty Bag 1 bag @ Titrate IV .Q0M [facility] Rx#: [id number] Tube Feeding 429 396 132 Other 90 90 90 Output: Urine 1920 699 945 Other: Voiding Method Indwelling Catheter Indwelling Catheter Indwelling Catheter # Voids 1 1 ABP, PAP, CO, CI - Last Documented Arterial Blood Pressure 113/56 - Exam General: [non toxic], [no distress], [appears older than age] Derm: [warm], [dry] Head: [atraumatic], [normocephalic], [symmetric] Eyes: [EOMI], [no lid lag], [anicteric sclera] Mouth: [no lip lesion], [mucus membranes moist] Cardiovascular: [S1S2 reg], [no murmur], [positive posterior tibial pulse bilateral], Lungs: [ bilateral], [ rhonchi, no rales] , [no accessory muscle use] Abdominal: [soft], [ nontender to palpation], [no guarding], [no appreciable organomegaly] Ext: [no gross muscle atrophy], [+1edema], [no contractures] Neuro: [ CN II-XI grossly intact], [no focal neuro deficits] Psych: Sedated. - Constitutional Constitutional Comment(s): on vent unable to assess - Labs CBC & Chem 7: 02/16/20 04:00 02/16/20 04:00 Labs: Abnormal Lab Results - Last 24 Hours (Table) 02/15/20 02/15/20 02/16/20 Range/Units 17:10 20:38 00:32 WBC (3.8-10.6) k/uL RBC (3.80-5.40) m/uL Hgb (11.4-16.0) gm/dL MCHC (31.0-37.0) g/dL RDW (11.5-15.5) % Plt Count (150-450) k/uL Neutrophils # (1.3-7.7) k/uL ABG pH (7.35-7.45) ABG pCO2 (35-45) mmHg ABG pO2 (83-108) mmHg ABG HCO3 (21-25) mmol/L ABG Total CO2 (19-24) mmol/L ABG O2 Saturation (94-97) % Carbon Dioxide (22-30) mmol/L BUN (7-17) mg/dL Creatinine (0.52-1.04) mg/dL Glucose (74-99) mg/dL POC Glucose (mg/dL) 177 H 154 H 112 H (75-99) mg/dL Total Protein (6.3-8.2) g/dL Albumin (3.5-5.0) g/dL 02/16/20 02/16/20 02/16/20 Range/Units 04:00 04:00 05:11 WBC 11.5 H (3.8-10.6) k/uL RBC 3.70 L (3.80-5.40) m/uL Hgb 10.6 L (11.4-16.0) gm/dL MCHC 29.5 L (31.0-37.0) g/dL RDW 16.8 H (11.5-15.5) % Plt Count 613 H (150-450) k/uL Neutrophils # 9.6 H (1.3-7.7) k/uL ABG pH 7.53 H (7.35-7.45) ABG pCO2 48 H (35-45) mmHg ABG pO2 68 L (83-108) mmHg ABG HCO3 40 H* (21-25) mmol/L ABG Total CO2 41 H (19-24) mmol/L ABG O2 Saturation (94-97) % Carbon Dioxide 41 H* (22-30) mmol/L BUN 40 H (7-17) mg/dL Creatinine 0.45 L (0.52-1.04) mg/dL Glucose 103 H (74-99) mg/dL POC Glucose (mg/dL) (75-99) mg/dL Total Protein 5.0 L (6.3-8.2) g/dL Albumin 2.4 L (3.5-5.0) g/dL 02/16/20 02/16/20 Range/Units 06:40 10:50 WBC (3.8-10.6) k/uL RBC (3.80-5.40) m/uL Hgb (11.4-16.0) gm/dL MCHC (31.0-37.0) g/dL RDW (11.5-15.5) % Plt Count (150-450) k/uL Neutrophils # (1.3-7.7) k/uL ABG pH 7.52 H (7.35-7.45) ABG pCO2 48 H (35-45) mmHg ABG pO2 187 H (83-108) mmHg ABG HCO3 39 H (21-25) mmol/L ABG Total CO2 40 H (19-24) mmol/L ABG O2 Saturation 99.5 H (94-97) % Carbon Dioxide (22-30) mmol/L BUN (7-17) mg/dL Creatinine (0.52-1.04) mg/dL Glucose (74-99) mg/dL POC Glucose (mg/dL) 108 H (75-99) mg/dL Total Protein (6.3-8.2) g/dL Albumin (3.5-5.0) g/dL Assessment and Plan Plan: 79 year old woman with history of HTN, DVT presented with dyspnea and found to have acute hypoxemic respiratory failure secondary to COVID-19 positive status as well as pulmonary embolism discovered on admission. She was found to be in A Fib with RVR and was ultimately controlled with metoprolol and amiodarone. She developed ARDS during her hospitalization, and ultimately required mechanical ventilation. She was intubated on 01/15, and since that time has not been able to be weaned. Covid 19 pneumonia with acute hypoxic respiratory failure, ARDS - Failing weaning trials, now with trach/peg 02/03 - Completed Remdesivir on 01/15 - s/p Dexamethasone day #17 days completed now back on IV Solu-Medrol managed by ICU team - Status post convalescent plasma 01/14 - Continue zinc, vitamin C, vitamin D, Pepcid, and melatonin Labile Blood Pressure, currently on vasopressors - AM cortisol does not indicate adrenal insufficiency Anemia, multifactorial thrombocytopenia, likely reactive - 2 units pRBC since admission DIffuse Anasarca - IV Lasix managed by ICU team Pulmonary embolus without right ventricular strain, history of prior DVT - Lovenox A fib with RVR - lovenox, amio - Cardiology following Entercoccus and E coli UTI resolved -Status post treatment with Levaquin, stop date 01/31 -patient now has yeast in her urine -Diflucan started Thrombocytopenia KALYAN due to ATN with resultant metabolic acidosis and hyperphosphatemia, resolved Septic shock, resolved Hypokalemia, resolved DVT prophylaxis: Lovenox for PE Discussed with: Nursing, ICU team Anticipated discharge: 3-[address]: [facility]
[2020-02-16 17:13] LABS: Glucose,Whole Blood 176 mg/dL (75-99)
[2020-02-17 00:23] LABS: Glucose,Whole Blood 58 mg/dL (75-99)
[2020-02-17] MEDS: INSULIN ASPART (NovoLOG) 100 UNIT/ML VIAL SQ SCH ×5 (00:42→23:55)
[2020-02-17 01:05] LABS: Glucose,Whole Blood 79 mg/dL (75-99)
[2020-02-17] MEDS: NOREPINEPHRINE 4 MG in SODIUM CHLORIDE 0.9% 250 ML IV SCH ×2 (02:16→22:31)
[2020-02-17 05:09] LABS: ABG Base Excess 16.3 mmol/L; ABG HCO3 39 mmol/L (21-25); ABG Oxygen Saturation 96.7 % (94-97); ABG PCO2 47 mmHg (35-45); ABG PH 7.53 (7.35-7.45); ABG PO2 82 mmHg (83-108); ABG TCO2 40 mmol/L (19-24); Allen Test Performed? Yes
[2020-02-17 05:37] LABS: Glucose,Whole Blood 105 mg/dL (75-99)
[2020-02-17 05:48] LABS: Anisocytosis Slight; Basophils # (A) 0.1 k/uL (0-0.2); Basophils % (A) 1 %; Eosinophils # (A) 0.3 k/uL (0-0.7); Eosinophils % (A) 3 %; HCT 32.8 % (34.0-46.0); HGB 10.2 gm/dL (11.4-16.0); Hypochromasia Marked; Lymphocytes # (A) 1.2 k/uL (1.0-4.8); Lymphocytes % (A) 11 %; MCH 30.4 pg (25.0-35.0); MCHC 30.9 g/dL (31.0-37.0); MCV 98.3 fL (80.0-100.0); Macrocytosis Slight; Mean Platelet Volume 8.4; Monocytes # (A) 0.4 k/uL (0-1.0); Monocytes % (A) 3 %; Neutrophils # (A) 9.1 k/uL (1.3-7.7); Neutrophils % (A) 83 %; Platelet Count 485 k/uL (150-450); RBC 3.34 m/uL (3.80-5.40); RDW 16.5 % (11.5-15.5); WBC 11.1 k/uL (3.8-10.6)
[2020-02-17 06:04] LABS: African American GFR (CKD) >90 (>60 ml/min/1.73 sqM); Blood Urea Nitrogen 32 mg/dL (7-17); Calcium 8.3 mg/dL (8.4-10.2); Chloride 105 mmol/L (98-107); Glucose 103 mg/dL (74-99); Non-African American GFR(CKD) >90 (>60 ml/min/1.73 sqM); Potassium 3.6 mmol/L (3.5-5.1); Sodium 143 mmol/L (137-145)
[2020-02-17 06:11] LABS: Anion Gap 0 mmol/L
[2020-02-17 06:28] LABS: Carbon Dioxide 38 mmol/L (22-30)
[2020-02-17] MEDS: ALBUTEROL HFA INHALER INHALATION SCH ×4 (07:29→20:50)
--- NOTE | 2020-02-17 07:36 | XR ---
EXAMINATION TYPE: XR chest 1V DATE OF EXAM: 02/17/2020 COMPARISON: Prior chest x-ray 02/16/2020 HISTORY: Ventilated, abnormal chest x-ray TECHNIQUE: Single frontal view of the chest is obtained. FINDINGS: Tracheostomy tube shows the tip overlying appropriate position. There is subcutaneous emph ysema again noted over the upper chest, likely pneumomediastinum change. Left hemidiaphragm is obscur ed. Right-sided PICC line shows the distal tip near the cavoatrial junction level. There is no eviden t pneumothorax. Bilateral airspace disease persists. Heart is thought to be stable accounting for dif ferences in technique. Aorta is dense. There are overlying leads. Patient is rotated. IMPRESSION: Findings similar to prior exam. Correlate for pneumonia, edema. Difficult to exclude sma ll effusion.
[2020-02-17] MEDS: ASCORBIC ACID 500 MG TAB PO SCH (08:36)
[2020-02-17] MEDS: CHLORHEXIDINE GLUCONATE 15 ML CUP MUCOUS MEM SCH ×2 (08:37→21:32)
[2020-02-17] MEDS: METOPROLOL TARTRATE 50 MG TAB PO SCH (08:37)
[2020-02-17] MEDS: predniSONE 20 MG TAB PO SCH (08:37)
[2020-02-17] MEDS: CHOLECALCIFEROL 1,000 UNIT TAB PO SCH (08:37)
[2020-02-17] MEDS: FAMOTIDINE 20 MG TAB PO SCH (08:37)
[2020-02-17] MEDS: ENOXAPARIN 100 MG/ML SYRINGE SQ SCH ×2 (08:37→21:32)
[2020-02-17] MEDS: AMIODARONE 200 MG TAB PO SCH (08:37)
[2020-02-17] MEDS: QUEtiapine 100 MG TAB PO SCH ×3 (08:38→21:32)
[2020-02-17] MEDS: INSULIN DETEMIR (LEVEMIR) 100 UNIT/ML SYR SQ SCH ×2 (08:40→21:32)
[2020-02-17] MEDS: ZINC SULFATE 220 MG CAP PO SCH (08:40)
[2020-02-17] MEDS ORDERED: POTASSIUM BICARBONATE/CIT AC 20 MEQ TABLET.EFF NG-TUBE SCH (09:00)
--- NOTE | 2020-02-17 10:29 | P.PN ---
Subjective Progress Note Date: 02/17/20 No new complaints. Pt remains in sinus rhythm with labile BPs. UOP has improved. Still requires sedation. Vent settings: PC - RR 26, FiO2 60%, PEEP 12, PIP 35 Objective - Vital Signs Vital signs: Vital Signs Temp 98.2 F 02/17/20 08:00 Pulse 77 02/17/20 09:00 Resp 30 H 02/17/20 09:00 BP 139/82 02/17/20 09:00 Pulse Ox 94 L 02/17/20 09:00 Intake & Output 02/16/20 02/17/20 02/17/20 18:59 06:59 18:59 Intake Total 5066.053 6358.823 442 Output Total 1345 745 340 Balance 153.194 472.823 102 Weight 79.4 kg 81 kg Intake: IV 876 396 99 .9 @ KVO 340 360 90 Sodium Chloride 0.9% 500 500 ml 500 ml @ 999 mls/hr IV .Q31M [facility] Rx#:[id number] pressure bags 36 36 9 Intake, IV Titration 172.194 368.823 100 Amount Norepinephrine 4 mg In 21.100 268.823 Sodium Chloride 0.9% 250 ml @ 0.05 MCG/KG/MIN 16. 231 mls/hr IV .[id number] [facility] Rx#:[id number] propofoL 1,000 mg In 151.094 100 100 Empty Bag 1 bag @ Titrate IV .Q0M [facility] Rx#: [id number] Tube Feeding 330 363 163 Other 120 90 80 Output: Urine 1345 745 340 Other: Voiding Method Indwelling Catheter Indwelling Catheter Indwelling Catheter # Voids 1 ABP, PAP, CO, CI - Last Documented Arterial Blood Pressure 164/69 - Exam Gen: ventilated, sedated HEENT: normocephalic, atraumatic, good hearing acuity, moist mucous membranes Resp: Vented via trach, PC: PIP 35, FiO2 60%, PEEP 12, respiratory rate 26 CVS: good distal perfusion x 4, RRR, no murmurs, clicks, gallops GI: soft, NTTP, ND, +PEG : no SPT, no CVAT, stanton catheter is present MSK: no pitting edema, no clubbing Neuro: non-focal, no sensory deficits, appropriate tone - Labs CBC & Chem 7: 02/17/20 05:39 02/17/20 05:39 Labs: Abnormal Lab Results - Last 24 Hours (Table) 02/16/20 02/16/20 02/17/20 Range/Units 10:50 17:11 00:18 WBC (3.8-10.6) k/uL RBC (3.80-5.40) m/uL Hgb (11.4-16.0) gm/dL Hct (34.0-46.0) % MCHC (31.0-37.0) g/dL RDW (11.5-15.5) % Plt Count (150-450) k/uL Neutrophils # (1.3-7.7) k/uL ABG pH 7.52 H (7.35-7.45) ABG pCO2 48 H (35-45) mmHg ABG pO2 187 H (83-108) mmHg ABG HCO3 39 H (21-25) mmol/L ABG Total CO2 40 H (19-24) mmol/L ABG O2 Saturation 99.5 H (94-97) % Carbon Dioxide (22-30) mmol/L BUN (7-17) mg/dL Creatinine (0.52-1.04) mg/dL Glucose (74-99) mg/dL POC Glucose (mg/dL) 176 H 58 L (75-99) mg/dL Calcium (8.4-10.2) mg/dL 02/17/20 02/17/20 02/17/20 Range/Units 05:05 05:35 05:39 WBC 11.1 H (3.8-10.6) k/uL RBC 3.34 L (3.80-5.40) m/uL Hgb 10.2 L (11.4-16.0) gm/dL Hct 32.8 L (34.0-46.0) % MCHC 30.9 L (31.0-37.0) g/dL RDW 16.5 H (11.5-15.5) % Plt Count 485 H (150-450) k/uL Neutrophils # 9.1 H (1.3-7.7) k/uL ABG pH 7.53 H (7.35-7.45) ABG pCO2 47 H (35-45) mmHg ABG pO2 82 L (83-108) mmHg ABG HCO3 39 H (21-25) mmol/L ABG Total CO2 40 H (19-24) mmol/L ABG O2 Saturation (94-97) % Carbon Dioxide (22-30) mmol/L BUN (7-17) mg/dL Creatinine (0.52-1.04) mg/dL Glucose (74-99) mg/dL POC Glucose (mg/dL) 105 H (75-99) mg/dL Calcium (8.4-10.2) mg/dL 02/17/20 Range/Units 05:39 WBC (3.8-10.6) k/uL RBC (3.80-5.40) m/uL Hgb (11.4-16.0) gm/dL Hct (34.0-46.0) % MCHC (31.0-37.0) g/dL RDW (11.5-15.5) % Plt Count (150-450) k/uL Neutrophils # (1.3-7.7) k/uL ABG pH (7.35-7.45) ABG pCO2 (35-45) mmHg ABG pO2 (83-108) mmHg ABG HCO3 (21-25) mmol/L ABG Total CO2 (19-24) mmol/L ABG O2 Saturation (94-97) % Carbon Dioxide 38 H (22-30) mmol/L BUN 32 H (7-17) mg/dL Creatinine 0.40 L (0.52-1.04) mg/dL Glucose 103 H (74-99) mg/dL POC Glucose (mg/dL) (75-99) mg/dL Calcium 8.3 L (8.4-10.2) mg/dL Assessment and Plan Assessment: 1. Acute Hypoxemic Respiratory Failure secondary to ARDS 2. ARDS secondary to COVID-19 3. Bicytopenia: Anemia/Thrombocytopenia 4. Anasarca 5. Pulmonary Embolism without cor pulmonale, History of DVT 6. Paroxysmal Atrial Fibrillation with RVR 7. Enterococcus and E. coli Complicated UTI 79 year old woman with history of HTN, DVT presented with dyspnea and found to have acute hypoxemic respiratory failure secondary to COVID-19 positive status as well as pulmonary embolism discovered on admission. She was discovered to be in A Fib with RVR while on the selective unit, and was ultimately controlled with metoprolol and amiodarone. She developed ARDS during her hospitalization, and ultimately required mechanical ventilation. She was intubated on 01/15, and since that time has not been able to be weaned. Covid 19 pneumonia with acute hypoxic respiratory failure, ARDS - Failing weaning trials, now with trach/peg 02/03 - Completed Remdesivir on 01/15 - s/p Dexamethasone day #17 days completed - Status post convalescent plasma 01/14 - Continue zinc, vitamin C, vitamin D, Pepcid, and melatonin Labile Blood Pressure - AM cortisol does not indicate adrenal insufficiency - unclear etiology Anemia, undetermined cause, thrombocytopenia, likely reactive - 1 unit pRBC 01/25/2020 - Stable now - suspect due to slow leak from TLC site. - Lovenox. dose adjusted by pulm for bleeding - Pulm wants to hold off transfusion at this point DIffuse Anasarca - Lasix X 1 given 01/22, repeated 01/25 Pulmonary embolus without right ventricular strain, history of prior DVT - Lovenox P. A fib with RVR - lovenox, amio - now in NSR - decrease metoprolol dose to 25mg BID Entercoccus and E coli UTI -Status post treatment with Levaquin, stop date 01/31 Thrombocytopenia KALYAN due to ATN with resultant metabolic acidosis and hyperphosphatemia, resolved Septic shock, resolved Hypokalemia, resolved DVT prophylaxis: Lovenox for PE Discussed with: Nursing, ICU team Anticipated discharge: TBD Anticipated discharge place: [facility]
--- NOTE | 2020-02-17 11:32 | P.PN ---
Subjective Progress Note Date: 02/17/20 CHIEF COMPLAINT: Covid 19 pneumonia HISTORY OF PRESENT ILLNESS: Patient remains in the ICU and on mechanical ventilation and is sedated. Patient is status post trach and PEG tube placement. Patient is currently tolerating bolus tube feedings. Patient has been having intermittent leaking from trach cuff. Patient is afebrile. WBC 11.1 PHYSICAL EXAM: VITAL SIGNS: Reviewed. GENERAL: Well-developed in no acute distress. HEENT: No sclera icterus. Extraocular movements grossly intact. Moist buccal mucosa. Head is atraumatic, normocephalic. Tracheostomy site clean dry and intact ABDOMEN: Soft. Nondistended. Nontender. PEG tube site clean dry and intact NEUROLOGIC: Patient is intubated and sedated ASSESSMENT: 1. Acute hypoxic respiratory failure status post tracheostomy placement 2. Severe protein calorie malnutrition status post PEG tube placement 3. Acute hypoxic respiratory failure with Covid 19 pneumonia and pulmonary embolism 4. Intermittent tracheostomy cuff leaking PLAN: -Continue tube feedings -Continue supportive care -We will continue to observe tracheostomy cuff intermittent leaking Physician Client Service Coordinator note has been reviewed by physician. Signing provider agrees with the documented findings, assessment, and plan of care. Objective - Vital Signs Vital signs: Vital Signs Temp 98.2 F 02/17/20 08:00 Pulse 77 02/17/20 09:00 Resp 30 H 02/17/20 09:00 BP 139/82 02/17/20 09:00 Pulse Ox 94 L 02/17/20 09:00 Intake & Output 02/16/20 02/17/20 02/17/20 18:59 06:59 18:59 Intake Total 1219.241 9165.823 442 Output Total 1345 745 340 Balance 153.194 472.823 102 Weight 79.4 kg 81 kg Intake: IV 876 396 99 .9 @ KVO 340 360 90 Sodium Chloride 0.9% 500 500 ml 500 ml @ 999 mls/hr IV .Q31M [facility] Rx#:[id number] pressure bags 36 36 9 Intake, IV Titration 172.194 368.823 100 Amount Norepinephrine 4 mg In 21.100 268.823 Sodium Chloride 0.9% 250 ml @ 0.05 MCG/KG/MIN 16. 231 mls/hr IV .[id number] [facility] Rx#:[id number] propofoL 1,000 mg In 151.094 100 100 Empty Bag 1 bag @ Titrate IV .Q0M [facility] Rx#: [id number] Tube Feeding 330 363 163 Other 120 90 80 Output: Urine 1345 745 340 Other: Voiding Method Indwelling Catheter Indwelling Catheter Indwelling Catheter # Voids 1 ABP, PAP, CO, CI - Last Documented Arterial Blood Pressure 164/69 - Labs CBC & Chem 7: 02/17/20 05:39 02/17/20 05:39 Labs: Abnormal Lab Results - Last 24 Hours (Table) 02/16/20 02/17/20 02/17/20 Range/Units 17:11 00:18 05:05 WBC (3.8-10.6) k/uL RBC (3.80-5.40) m/uL Hgb (11.4-16.0) gm/dL Hct (34.0-46.0) % MCHC (31.0-37.0) g/dL RDW (11.5-15.5) % Plt Count (150-450) k/uL Neutrophils # (1.3-7.7) k/uL ABG pH 7.53 H (7.35-7.45) ABG pCO2 47 H (35-45) mmHg ABG pO2 82 L (83-108) mmHg ABG HCO3 39 H (21-25) mmol/L ABG Total CO2 40 H (19-24) mmol/L Carbon Dioxide (22-30) mmol/L BUN (7-17) mg/dL Creatinine (0.52-1.04) mg/dL Glucose (74-99) mg/dL POC Glucose (mg/dL) 176 H 58 L (75-99) mg/dL Calcium (8.4-10.2) mg/dL 02/17/20 02/17/20 02/17/20 Range/Units 05:35 05:39 05:39 WBC 11.1 H (3.8-10.6) k/uL RBC 3.34 L (3.80-5.40) m/uL Hgb 10.2 L (11.4-16.0) gm/dL Hct 32.8 L (34.0-46.0) % MCHC 30.9 L (31.0-37.0) g/dL RDW 16.5 H (11.5-15.5) % Plt Count 485 H (150-450) k/uL Neutrophils # 9.1 H (1.3-7.7) k/uL ABG pH (7.35-7.45) ABG pCO2 (35-45) mmHg ABG pO2 (83-108) mmHg ABG HCO3 (21-25) mmol/L ABG Total CO2 (19-24) mmol/L Carbon Dioxide 38 H (22-30) mmol/L BUN 32 H (7-17) mg/dL Creatinine 0.40 L (0.52-1.04) mg/dL Glucose 103 H (74-99) mg/dL POC Glucose (mg/dL) 105 H (75-99) mg/dL Calcium 8.3 L (8.4-10.2) mg/dL
[2020-02-17 11:35] LABS: Glucose,Whole Blood 151 mg/dL (75-99)
--- NOTE | 2020-02-17 12:18 | PN ---
PROGRESS NOTE PULMONARY/CRITICAL CARE PROGRESS NOTE: DATE OF SERVICE: February 17, 2020 CRITICAL CARE TIME: 34 minutes. This is a patient who was admitted way back on January 09, 2020 for COVID-19 pneumonia. She had acute hypoxemic respiratory failure. She was also admitted with a diagnosis of pulmonary embolism. The patient has had failure to wean from mechanical ventilation and after long-term intubation, the patient underwent tracheostomy and PEG tube placement on February 04, [address] Gomez. Currently, the patient remains on the ventilator on the pressure assist-control modality. Rate is 26, FiO2 of 60%, PEEP of 12, inspiratory time of 0.8 seconds, and inspiratory pressure is 22 cm of water. Her blood gases on those settings show pO2 of 82, pCO2 of 47 and a pH of 7.53. The patient remains on saline at 30 mL an hour, Diprivan at 30 mcg/kg per minute and Vital high-protein at 130 mL every 4 hours. She did develop some subcutaneous emphysema yesterday on the right side of the neck and facial area. No obvious pneumothorax. Yesterday, we spent a lot of time at the bedside trying to adjust her ventilator to make her more comfortable. The best we could do with pressure assist control. We did attempt volume assist-control and pressure regulated volume control or VC plus. PHYSICAL EXAMINATION: VITAL SIGNS: Current vital signs reviewed. Temperature 98.2, heart rate 77, respiratory rate is 26 to 30 breaths per minute, blood pressure 139/82, mean 101 and saturations are in the low 90s. GENERAL: Currently sedated. Appears in no acute distress. Somewhat dyssynchronous on the ventilator. HEENT: Examination is grossly unremarkable. NECK: Supple. There is a midline tracheostomy. CARDIOVASCULAR: Examination reveals regular rhythm and rate. Heart rate 77 beats per minute. S1, S2 normal. No S3, S4, or murmur. LUNGS: Reveal diffuse coarse bilateral rhonchi. Breath sounds equal but diminished throughout. ABDOMEN: Soft. Bowel sounds are noted. EXTREMITIES: Are intact. There is edema. It is 1+. SKIN: Reveals areas of ecchymoses. NEUROLOGIC: Examination could not be adequately assessed. LABORATORY DATA: Laboratory data includes a white count 11.1, hemoglobin 10.2, hematocrit 32.8, platelet count 485,000. Blood gases have been noted, pO2 of 82, pCO2 of 47, pH of 7.53. Sodium 143, potassium 3.6, chloride 105, CO2 of 38. Anion gap is 0. BUN and creatinine were 32 and 0.4. Calcium is 8.3. Microbiology showed evidence of both E coli and Enterococcus faecalis in the urine from January 16. Those have been treated. Chest x-ray shows diffuse bilateral infiltrates, the infiltrates tend to be more so on the right than on the left lung. Some subcutaneous emphysema is seen up in the supraclavicular and neck area on the right side. CURRENT MEDICATIONS: Current medications are reviewed. The patient is currently on Tylenol, albuterol inhaler, Cordarone, vitamin C, chlorhexidine, vitamin D3, Lovenox, Pepcid, Dilaudid, insulin, magnesium replacement therapy, metoprolol, Narcan, norepinephrine as needed, potassium replacement, prednisone 20 mg a day, propofol, Seroquel, saline IV, and zinc. ASSESSMENT: 1. Acute hypoxemic respiratory failure secondary to bilateral COVID-19 pneumonia/pneumonitis, with subsequent development of acute respiratory distress syndrome, and failure to wean from mechanical ventilation. 2. Status post tracheostomy and PEG tube placement, February 04, 2020. 3. Acute right-sided pulmonary embolism, likely secondary to hypocoagulable state induced by the patient's COVID-19 infection. 4. Recurrent atrial fibrillation. 5. Remote history of deep venous thrombosis. 6. Acute kidney injury. 7. Hypercoagulable state. 8. Toxic/metabolic encephalopathy. 9. Chronic anemia. 10.Failure to wean from mechanical ventilation. PLAN: The patient is currently on the pressure assist-control modality. This seems to be the best settings for her. The gases are reasonable. She remains on propofol at 30 mcg/kg per minute. She is getting tube feeds. She did develop some right-sided subcutaneous emphysema. No obvious pneumothorax. We will continue to follow. Overall prognosis is poor. No additional recommendations are made. CRITICAL CARE TIME: 34 minutes. MMODL / IJN: [id number] /
[2020-02-17 13:53] LABS: ABG HCO3 40 mmol/L (21-25)
[2020-02-17 16:36] LABS: LD Isoenzymes 1 26 % (19-38); LD Isoenzymes 2 41 % (30-43); LD Isoenzymes 3 16 % (16-26); LD Isoenzymes 4 8 % (3-12); LD Isoenzymes 5 9 % (3-14); Lactacte Dehydrogenase(LD) ISO 242 U/L (120-250)
[2020-02-17 17:47] LABS: Glucose,Whole Blood 146 mg/dL (75-99)
[2020-02-17] MEDS: METOPROLOL TARTRATE 25 MG TAB PO SCH (21:32)
[2020-02-17 23:50] LABS: Glucose,Whole Blood 75 mg/dL (75-99)
[2020-02-18 05:10] LABS: Anisocytosis Slight; Basophils % (A) 0 %; Eosinophils # (A) 0.3 k/uL (0-0.7); Eosinophils % (A) 3 %; HCT 29.9 % (34.0-46.0); HGB 9.4 gm/dL (11.4-16.0); Hypochromasia Marked; Lymphocytes # (A) 1.1 k/uL (1.0-4.8); Lymphocytes % (A) 12 %; MCH 30.8 pg (25.0-35.0); MCHC 31.5 g/dL (31.0-37.0); Macrocytosis Slight; Mean Platelet Volume 8.8; Monocytes # (A) 0.3 k/uL (0-1.0); Monocytes % (A) 3 %; Neutrophils # (A) 7.8 k/uL (1.3-7.7); Neutrophils % (A) 81 %; Platelet Count 359 k/uL (150-450); RBC 3.05 m/uL (3.80-5.40); RDW 16.5 % (11.5-15.5); WBC 9.6 k/uL (3.8-10.6)
[2020-02-18 05:18] LABS: ABG Base Excess 14.2 mmol/L; ABG HCO3 37 mmol/L (21-25); ABG Oxygen Saturation 98.4 % (94-97); ABG PCO2 47 mmHg (35-45); ABG PH 7.51 (7.35-7.45); ABG PO2 100 mmHg (83-108); ABG TCO2 39 mmol/L (19-24); Allen Test Performed? Yes
[2020-02-18 05:27] LABS: ALT 21 U/L (4-34); AST 22 U/L (14-36); African American GFR (CKD) >90 (>60 ml/min/1.73 sqM); Albumin 2.1 g/dL (3.5-5.0); Alkaline Phosphatase 66 U/L (38-126); Anion Gap -2 mmol/L; Blood Urea Nitrogen 32 mg/dL (7-17); Calcium 8.2 mg/dL (8.4-10.2); Carbon Dioxide 37 mmol/L (22-30); Chloride 106 mmol/L (98-107); Glucose 107 mg/dL (74-99); Non-African American GFR(CKD) >90 (>60 ml/min/1.73 sqM); Potassium 3.7 mmol/L (3.5-5.1); Sodium 141 mmol/L (137-145); Total Bilirubin 0.3 mg/dL (0.2-1.3); Total Protein 4.3 g/dL (6.3-8.2)
[2020-02-18] MEDS ORDERED: POTASSIUM BICARBONATE/CIT AC 20 MEQ TABLET.EFF NG-TUBE SCH (06:00)
[2020-02-18 06:05] LABS: Glucose,Whole Blood 114 mg/dL (75-99)
[2020-02-18] MEDS: INSULIN ASPART (NovoLOG) 100 UNIT/ML VIAL SQ SCH ×3 (06:07→18:25)
--- NOTE | 2020-02-18 07:30 | XR ---
EXAMINATION TYPE: XR chest 1V portable DATE OF EXAM: 02/18/2020 COMPARISON: NONE HISTORY: SOB, Follow Up FINDINGS: Indwelling tubes and catheters are unchanged. Diffuse infiltrates are seen bilaterally essentially unchanged from prior examination. Stable appearance of the cardio-mediastinal structures at this time. Pleural effusion unchanged. IMPRESSION: 1. Stable portable chest. Clinical correlation and follow up until resolution is recommended.
[2020-02-18] MEDS: ALBUTEROL HFA INHALER INHALATION SCH ×4 (07:34→20:26)
[2020-02-18] MEDS: FAMOTIDINE 20 MG TAB PO SCH (08:03)
[2020-02-18] MEDS: ZINC SULFATE 220 MG CAP PO SCH (08:03)
[2020-02-18] MEDS: ENOXAPARIN 100 MG/ML SYRINGE SQ SCH ×2 (08:03→21:00)
[2020-02-18] MEDS: CHLORHEXIDINE GLUCONATE 15 ML CUP MUCOUS MEM SCH ×2 (08:03→21:00)
[2020-02-18] MEDS: CHOLECALCIFEROL 1,000 UNIT TAB PO SCH (08:04)
[2020-02-18] MEDS: predniSONE 20 MG TAB PO SCH (08:04)
[2020-02-18] MEDS: AMIODARONE 200 MG TAB PO SCH (08:05)
[2020-02-18] MEDS: ASCORBIC ACID 500 MG TAB PO SCH (08:06)
[2020-02-18] MEDS: INSULIN DETEMIR (LEVEMIR) 100 UNIT/ML SYR SQ SCH ×2 (08:06→21:00)
[2020-02-18] MEDS: QUEtiapine 100 MG TAB PO SCH ×3 (08:06→21:00)
[2020-02-18] MEDS: METOPROLOL TARTRATE 25 MG TAB PO SCH ×2 (08:18→21:00)
--- NOTE | 2020-02-18 10:53 | P.PN ---
Progress Note - Text Progress Note Date: 02/18/20 Pt not seen on rounds today, but chart reviewed. No changes to management today, ongoing [facility] conversation due to poor prognosis.
--- NOTE | 2020-02-18 11:06 | P.PN ---
Subjective Progress Note Date: 02/18/20 CHIEF COMPLAINT: Covid 19 pneumonia HISTORY OF PRESENT ILLNESS: Patient remains in the ICU and on mechanical ventilation pressure support. Patient is status post trach and PEG tube placement. Patient is currently tolerating bolus tube feedings. Patient has been having intermittent leaking from trach cuff. Patient had developed some subcutaneous emphysema on the right side of her neck and facial area yesterday. Chest x-ray showed no evidence of pneumothorax. Patient is afebrile. WBC 9.6 PHYSICAL EXAM: VITAL SIGNS: Reviewed. GENERAL: Well-developed in no acute distress. HEENT: No sclera icterus. Extraocular movements grossly intact. Moist buccal mucosa. Head is atraumatic, normocephalic. Tracheostomy site clean dry and intact ABDOMEN: Soft. Nondistended. Nontender. PEG tube site clean dry and intact NEUROLOGIC: Patient is intubated ASSESSMENT: 1. Acute hypoxic respiratory failure status post tracheostomy placement 2. Severe protein calorie malnutrition status post PEG tube placement 3. Acute hypoxic respiratory failure with Covid 19 pneumonia and pulmonary embolism 4. Intermittent tracheostomy cuff leaking PLAN: -Continue tube feedings -Continue supportive care -We will continue to observe tracheostomy cuff intermittent leaking Physician Service Delivery Management Consultant note has been reviewed by physician. Signing provider agrees with the documented findings, assessment, and plan of care. Objective - Vital Signs Vital signs: Vital Signs Temp 98.4 F 02/18/20 04:00 Pulse 78 02/18/20 10:00 Resp 39 H 02/18/20 10:00 BP 114/70 02/18/20 09:00 Pulse Ox 93 L 02/18/20 10:00 Intake & Output 02/17/20 02/18/20 02/18/20 18:59 06:59 18:59 Intake Total 0149.122 0973.888 186.263 Output Total 1605 715 440 Balance -387.807 436.888 -253.737 Weight 85.2 kg Intake: IV 396 396 132 .9 @ KVO 360 360 120 pressure bags 36 36 12 Intake, IV Titration 258.193 215.888 34.263 Amount Norepinephrine 4 mg In 54.779 0 Sodium Chloride 0.9% 250 ml @ 0.05 MCG/KG/MIN 15. 431 mls/hr IV .[id number] [facility] Rx#:[id number] propofoL 1,000 mg In 258.193 161.109 34.263 Empty Bag 1 bag @ Titrate IV .Q0M [facility] Rx#: [id number] Tube Feeding 423 390 Other 140 150 20 Output: Urine 1005 715 440 Stool 600 Other: Voiding Method Indwelling Catheter Indwelling Catheter Indwelling Catheter ABP, PAP, CO, CI - Last Documented Arterial Blood Pressure 142/62 - Labs CBC & Chem 7: 02/18/20 04:50 02/18/20 08:30 Labs: Abnormal Lab Results - Last 24 Hours (Table) 02/16/20 02/17/20 02/17/20 Range/Units 05:11 11:33 17:45 RBC (3.80-5.40) m/uL Hgb (11.4-16.0) gm/dL Hct (34.0-46.0) % RDW (11.5-15.5) % Neutrophils # (1.3-7.7) k/uL ABG pH (7.35-7.45) ABG pCO2 (35-45) mmHg ABG HCO3 40 H* (21-25) mmol/L ABG Total CO2 (19-24) mmol/L ABG O2 Saturation (94-97) % Carbon Dioxide (22-30) mmol/L BUN (7-17) mg/dL Creatinine (0.52-1.04) mg/dL Glucose (74-99) mg/dL POC Glucose (mg/dL) 151 H 146 H (75-99) mg/dL Calcium (8.4-10.2) mg/dL Total Protein (6.3-8.2) g/dL Albumin (3.5-5.0) g/dL 02/18/20 02/18/20 02/18/20 Range/Units 04:50 04:50 05:07 RBC 3.05 L (3.80-5.40) m/uL Hgb 9.4 L (11.4-16.0) gm/dL Hct 29.9 L (34.0-46.0) % RDW 16.5 H (11.5-15.5) % Neutrophils # 7.8 H (1.3-7.7) k/uL ABG pH 7.51 H (7.35-7.45) ABG pCO2 47 H (35-45) mmHg ABG HCO3 37 H (21-25) mmol/L ABG Total CO2 39 H (19-24) mmol/L ABG O2 Saturation 98.4 H (94-97) % Carbon Dioxide 37 H (22-30) mmol/L BUN 32 H (7-17) mg/dL Creatinine 0.33 L (0.52-1.04) mg/dL Glucose 107 H (74-99) mg/dL POC Glucose (mg/dL) (75-99) mg/dL Calcium 8.2 L (8.4-10.2) mg/dL Total Protein 4.3 L (6.3-8.2) g/dL Albumin 2.1 L (3.5-5.0) g/dL 02/18/20 Range/Units 06:03 RBC (3.80-5.40) m/uL Hgb (11.4-16.0) gm/dL Hct (34.0-46.0) % RDW (11.5-15.5) % Neutrophils # (1.3-7.7) k/uL ABG pH (7.35-7.45) ABG pCO2 (35-45) mmHg ABG HCO3 (21-25) mmol/L ABG Total CO2 (19-24) mmol/L ABG O2 Saturation (94-97) % Carbon Dioxide (22-30) mmol/L BUN (7-17) mg/dL Creatinine (0.52-1.04) mg/dL Glucose (74-99) mg/dL POC Glucose (mg/dL) 114 H (75-99) mg/dL Calcium (8.4-10.2) mg/dL Total Protein (6.3-8.2) g/dL Albumin (3.5-5.0) g/dL
--- NOTE | 2020-02-18 11:15 | PN ---
PROGRESS NOTE PULMONARY/CRITICAL CARE PROGRESS NOTE: DATE OF SERVICE: February 18, 2020 CRITICAL CARE TIME: 33 minutes. This is a 79-year-old female who was admitted back on January 09, 2020 for COVID-19 pneumonia with acute hypoxemic respiratory failure. She was admitted also with the diagnosis of pulmonary embolism. The patient has failed to wean from mechanical ventilation and after long-term intubation, the patient underwent tracheostomy and PEG tube placed on February 04, [address] Gomez. She remains on the ventilator. She is on the pressure assist-control mode, inspiratory pressure of 22 cm water, inspiratory time of 0.8 seconds, FiO2 of 60%, PEEP of 12 and a rate of 26 breaths per minute. Her blood gases show pO2 of 100, pCO2 of 47 and a pH of 7.51. She is getting saline at 30 mL an hour, propofol is currently on hold, and she is also off norepinephrine at this time. She is getting Vital high-protein, 130 mL every 6 hours. We are going to attempt to place her on some pressure support and CPAP. We trialed her on PSV 15 and CPAP of 5. The respiratory therapist and nurse note to place her back on her previous settings should she become fatigued. PHYSICAL EXAMINATION: VITAL SIGNS: Current vital signs are reviewed. Her temperature is 98.4, heart rate 78, respiratory rate mid 30s, blood pressure 142/62, and saturations are 93%. GENERAL: Appears in no acute distress. HEENT: Examination is grossly unremarkable. She has got a midline tracheostomy. NECK: Supple. Full range of motion. CARDIOVASCULAR: Examination reveals regular rhythm and rate. Heart rate mid 70s. S1, S2 normal. Heart sounds distant. LUNGS: Reveal diffuse coarse rhonchi. No wheezes. No crackles. ABDOMEN: Soft. Bowel sounds are heard. PEG tube noted. EXTREMITIES: Are intact. Edema appreciated. No cyanosis or clubbing. SKIN: Without rash. NEUROLOGIC: Examination is difficult to assess. CURRENT LABS: Current labs are reviewed. White count 9.6, hemoglobin 9.4, hematocrit 29.9, platelet count 359,000. Sodium, potassium, chloride normal. CO2 of 37. Anion gap is -2. BUN and creatinine were 32 and 0.33. Albumin 2.1. Microbiology is reviewed. There was evidence of E coli and Enterococcus faecalis in the urine from January 16. Chest x-ray done today shows diffuse bilateral patchy infiltrates. Midline tracheostomy tube noted. MEDICATIONS: Medications are reviewed. The patient is currently on Tylenol, albuterol, Cordarone, vitamin C, chlorhexidine, vitamin D3, Lovenox, Pepcid, Dilaudid p.r.n., insulin, magnesium p.r.n., metoprolol, Narcan, norepinephrine p.r.n., potassium replacement protocol, prednisone, Seroquel, propofol and zinc. ASSESSMENT: 1. Acute hypoxemic respiratory failure secondary to bilateral COVID-19 pneumonia/pneumonitis, with subsequent development of acute respiratory distress syndrome and failure to wean from mechanical ventilation. 2. Status post tracheostomy and PEG tube placement, February 04, 2020. 3. Acute right-sided pulmonary embolism, likely secondary to hypercoagulable state induced by the patient's COVID-19 infection. 4. Recurrent atrial fibrillation. 5. Remote history of deep venous thrombosis. 6. Acute kidney injury. 7. Hypercoagulable state. 8. Toxic/metabolic encephalopathy. 9. Chronic anemia. 10.Failure to wean from mechanical ventilation. PLAN: The patient will be tried on some PSV and CPAP. We will make sure that we watch her closely. Should she start developing tachycardia, tachypnea, diaphoresis, hypertension, or any other signs of respiratory distress, the patient will be placed back on the pressure assist-control modality. Overall prognosis remains poor. She still has a bit of subcutaneous emphysema in the right neck area. It has not progressed. No obvious pneumothorax. Norepinephrine is currently off. She is getting nourished. Additional recommendations and suggestions are forthcoming. Prognosis is poor. CRITICAL CARE TIME: 33 minutes. MMRIGOBERTOL / DARRICKN: [id number] /
[2020-02-18] MEDS: NOREPINEPHRINE 4 MG in SODIUM CHLORIDE 0.9% 250 ML IV SCH (11:19)
[2020-02-18 11:57] LABS: Glucose,Whole Blood 68 mg/dL (75-99)
[2020-02-18 12:07] LABS: Glucose,Whole Blood 73 mg/dL (75-99)
[2020-02-18] MEDS: HYDROmorphone 0.5 MG/0.5 ML SYRINGE IVP PRN ×2 (16:40→22:48)
[2020-02-18 17:59] LABS: Glucose,Whole Blood 117 mg/dL (75-99)
[2020-02-19] MEDS: INSULIN ASPART (NovoLOG) 100 UNIT/ML VIAL SQ SCH ×4 (00:20→17:32)
[2020-02-19] MEDS: DILTIAZEM 125 MG in SODIUM CHLORIDE 0.9% 100 ML IV SCH ×2 (01:08→10:37)
[2020-02-19 05:12] LABS: ABG Base Excess 10.8 mmol/L; ABG HCO3 33 mmol/L (21-25); ABG Oxygen Saturation 90.4 % (94-97); ABG PCO2 38 mmHg (35-45); ABG PH 7.55 (7.35-7.45); ABG TCO2 34 mmol/L (19-24); Allen Test Performed? Yes
[2020-02-19 05:16] LABS: ABG PO2 49 mmHg (83-108)
[2020-02-19 05:43] LABS: Anisocytosis Slight; Basophils % (A) 0 %; Eosinophils # (A) 0.3 k/uL (0-0.7); Eosinophils % (A) 3 %; HCT 31.2 % (34.0-46.0); Hypochromasia Moderate; Lymphocytes # (A) 1.2 k/uL (1.0-4.8); Lymphocytes % (A) 11 %; MCH 31.1 pg (25.0-35.0); MCHC 32.1 g/dL (31.0-37.0); MCV 97.1 fL (80.0-100.0); Macrocytosis Slight; Mean Platelet Volume 7.9; Monocytes # (A) 0.4 k/uL (0-1.0); Monocytes % (A) 4 %; Neutrophils # (A) 9.2 k/uL (1.3-7.7); Neutrophils % (A) 82 %; Platelet Count 347 k/uL (150-450); RBC 3.21 m/uL (3.80-5.40); RDW 16.5 % (11.5-15.5); WBC 11.3 k/uL (3.8-10.6)
[2020-02-19 05:46] LABS: ALT 21 U/L (4-34); AST 24 U/L (14-36); African American GFR (CKD) >90 (>60 ml/min/1.73 sqM); Albumin 2.2 g/dL (3.5-5.0); Alkaline Phosphatase 69 U/L (38-126); Anion Gap 1 mmol/L; Blood Urea Nitrogen 26 mg/dL (7-17); Calcium 8.3 mg/dL (8.4-10.2); Carbon Dioxide 33 mmol/L (22-30); Chloride 106 mmol/L (98-107); Glucose 127 mg/dL (74-99); Non-African American GFR(CKD) >90 (>60 ml/min/1.73 sqM); Potassium 3.6 mmol/L (3.5-5.1); Sodium 140 mmol/L (137-145); Total Bilirubin 0.4 mg/dL (0.2-1.3); Total Protein 4.6 g/dL (6.3-8.2)
[2020-02-19] MEDS ORDERED: POTASSIUM BICARBONATE/CIT AC 20 MEQ TABLET.EFF NG-TUBE SCH (07:00)
[2020-02-19] MEDS: ALBUTEROL HFA INHALER INHALATION SCH ×5 (07:21→19:45)
[2020-02-19] MEDS: NOREPINEPHRINE 4 MG in SODIUM CHLORIDE 0.9% 250 ML IV SCH (08:13)
[2020-02-19] MEDS: KETOROLAC 15 MG/ML 1 ML VIAL IVP PRN ×2 (08:19→13:43)
[2020-02-19] MEDS: CHLORHEXIDINE GLUCONATE 15 ML CUP MUCOUS MEM SCH ×2 (08:22→20:11)
[2020-02-19] MEDS: ZINC SULFATE 220 MG CAP PO SCH (08:22)
[2020-02-19] MEDS: METOPROLOL TARTRATE 25 MG TAB PO SCH ×2 (08:23→20:11)
[2020-02-19] MEDS: AMIODARONE 200 MG TAB PO SCH (08:23)
[2020-02-19] MEDS: QUEtiapine 100 MG TAB PO SCH ×3 (08:23→22:25)
[2020-02-19] MEDS: ASCORBIC ACID 500 MG TAB PO SCH (08:23)
[2020-02-19] MEDS: FAMOTIDINE 20 MG TAB PO SCH (08:23)
[2020-02-19] MEDS: INSULIN DETEMIR (LEVEMIR) 100 UNIT/ML SYR SQ SCH ×2 (08:23→20:11)
[2020-02-19] MEDS: predniSONE 20 MG TAB PO SCH (08:23)
[2020-02-19] MEDS: ENOXAPARIN 100 MG/ML SYRINGE SQ SCH ×2 (08:24→20:11)
[2020-02-19] MEDS: CHOLECALCIFEROL 1,000 UNIT TAB PO SCH (08:24)
--- NOTE | 2020-02-19 11:29 | PN ---
PROGRESS NOTE PULMONARY/CRITICAL CARE PROGRESS NOTE: DATE OF SERVICE: February 19, 2020 CRITICAL CARE TIME: 34 minutes. This 79-year-old female admitted back on January 09, 2020 for COVID-19 pneumonia with acute hypoxemic respiratory failure. She was also discovered at that time to have a pulmonary embolism. The patient was on mechanical ventilation for a number of days and had failure to wean from mechanical ventilation and after a period of time, underwent a tracheostomy tube placement and PEG tube placement on February 04, [address] Gomez. She remains on the ventilator, and really has not made a great deal of progress. She is on the pressure assist-control mode with an inspiratory pressure of 22 cm of water and inspiratory time of 0.8 seconds, FiO2 of 50%, PEEP of 12, rate of 26. Initial gases when the patient was very restless showed a pO2 of 49, a pCO2 of 38, and pH of 7.55. Saturations are much improved now. Yesterday, on February 17, the patient went for about 2 hours on pressure support of 15, CPAP of 5. Will attempt that again today. We are currently using Toradol primarily for pain control. She can get 15 mg IV push every 6 hours. We are going to discontinue the narcotic at this time. In addition, the patient is getting saline at 30 mL an hour, Cardizem drip at 15 mg an hour. Diprivan is currently off for daily interruption of sedation, norepinephrine has been weaned off, and she is getting Vital high-protein at 33 with a goal of 33 mL an hour. PHYSICAL EXAMINATION: VITAL SIGNS: Current vital signs are reviewed. Temperature is 99.9, heart rate 72, respiratory rate 26, blood pressure 98/57, mean 70 and saturations are between 90% and 92%. GENERAL: Appears mildly tachypneic and dyspneic. HEENT: Examination is grossly unremarkable. NECK: Supple. Midline tracheostomy. No adenopathy or thyromegaly. CARDIOVASCULAR: Examination reveals regular rhythm and rate. Heart rate 72 beats per minute. Heart sounds are distant. LUNGS: Reveal diffuse coarse rhonchi. Breath sounds are equal. ABDOMEN: Soft. Bowel sounds are heard. EXTREMITIES: Reveal edema. No cyanosis or clubbing. SKIN: Without rash. NEUROLOGIC: Examination is difficult to assess. LABS: Labs are reviewed. White count 11.3, hemoglobin 10.2, hematocrit 31.2, platelet count 347,000. Blood gases have been noted. Sodium 140, potassium 3.6, chloride 106, CO2 of 33. Anion gap is 1. BUN and creatinine were 26 and 0.35. A repeat COVID test was negative. Microbiology was showing evidence of E coli and Enterococcus faecalis in her urine from January 16. Both of those pathogens have been treated. A chest x-ray was done this morning showing diffuse patchy bilateral infiltrates. Trach tube in position. CURRENT MEDICATIONS: Current medications are reviewed. The patient is currently on Tylenol, albuterol inhaler, Cordarone, vitamin C, Cardizem drip, Peridex, vitamin D3, Lovenox, famotidine, insulin, Toradol, magnesium replacement, metoprolol, Narcan, norepinephrine p.r.n., potassium replacement, prednisone, propofol p.r.n., Seroquel and zinc. ASSESSMENT: 1. Acute hypoxemic respiratory failure secondary to COVID-19 pneumonia/pneumonitis, with subsequent development of acute respiratory distress syndrome and failure to wean from mechanical ventilation. 2. Status post tracheostomy and PEG tube placement, February 04, [address] Gomez. 3. Acute right-sided pulmonary embolism, likely secondary to hypercoagulable state, induced by the patient's COVID-19 infection, currently being treated. 4. Recurrent atrial fibrillation. 5. Remote history of deep venous thrombosis. 6. Acute kidney injury. 7. Hypercoagulable state. 8. Toxic/metabolic encephalopathy. 9. Chronic anemia. 10.Failure to wean from mechanical ventilation. PLAN: The patient will be given another daily interruption of sedation and spontaneous breathing trial. Yesterday, the patient went 2 hours on pressure support of 15, CPAP of 5. We will attempt that again today. The patient's Diprivan has been weaned off as has the norepinephrine. The patient is receiving tube feeds at goal. Will discontinue the narcotic in favor of Toradol IV. No additional recommendations are made. Prognosis remains poor. The patient is now a DNR. The patient's family is hoping to be able to get the patient to a long-term acute care center. CRITICAL CARE TIME: 34 minutes. JANES / DARRICKN: [id number] /
--- NOTE | 2020-02-19 12:09 | P.PN ---
Subjective Progress Note Date: 02/19/20 Patient is sedated today. She is being ventilated with full support today via tracheostomy tube. Patient was on CPAP yesterday and off sedation and according to nursing staff was doing well throughout the day. There is a concern about her right arm being more swollen with swelling extending to the right hand. Patient has a PICC line in the right arm. Objective - Vital Signs Vital signs: Vital Signs Temp 99.9 F H 02/19/20 08:00 Pulse 78 02/19/20 11:00 Resp 35 H 02/19/20 11:00 BP 104/67 02/19/20 11:00 Pulse Ox 93 L 02/19/20 11:00 Intake & Output 02/18/20 02/19/20 02/19/20 18:59 06:59 18:59 Intake Total 852.896 9692.924 527.386 Output Total 1355 985 295 Balance -470.352 135.924 232.386 Weight 84.7 kg 84.7 kg Intake: IV 396 396 165 .9 @ KVO 360 360 150 pressure bags 36 36 15 Intake, IV Titration 111.648 208.924 104.386 Amount Diltiazem 125 mg In 51.000 59.0 Sodium Chloride 0.9% 100 ml @ 5 MG/HR 5 mls/hr IV .Q24H [facility] Rx#:[id number] Norepinephrine 4 mg In 14.762 73.448 21.449 Sodium Chloride 0.9% 250 ml @ 0.05 MCG/KG/MIN 15. 431 mls/hr IV .[id number] [facility] Rx#:[id number] propofoL 1,000 mg In 96.886 84.476 23.937 Empty Bag 1 bag @ Titrate IV .Q0M [facility] Rx#: [id number] Tube Feeding 297 396 198 Other 80 120 60 Output: Urine 1355 985 295 Other: Voiding Method Indwelling Catheter Indwelling Catheter ABP, PAP, CO, CI - Last Documented Arterial Blood Pressure 155/79 - Exam General: The patient is sedated and mechanically ventilated. Trachea in place. Eye: there is normal conjunctiva bilaterally. Cardiovascular: Normal S1-S2, no S3-S4, no murmurs. Respiratory: Lungs with mechanical ventilator sounds Gastrointestinal: Abdomen is soft, nontender. PEG tube in place Musculoskeletal: There is +1 pedal edema. Skin: Skin is warm and dry - Labs CBC & Chem 7: 02/19/20 04:40 02/19/20 04:40 Labs: Abnormal Lab Results - Last 24 Hours (Table) 02/18/20 02/18/20 02/19/20 Range/Units 12:05 17:58 04:40 WBC 11.3 H (3.8-10.6) k/uL RBC 3.21 L (3.80-5.40) m/uL Hgb 10.0 L (11.4-16.0) gm/dL Hct 31.2 L (34.0-46.0) % RDW 16.5 H (11.5-15.5) % Neutrophils # 9.2 H (1.3-7.7) k/uL ABG pH (7.35-7.45) ABG pO2 (83-108) mmHg ABG HCO3 (21-25) mmol/L ABG Total CO2 (19-24) mmol/L ABG O2 Saturation (94-97) % Carbon Dioxide (22-30) mmol/L BUN (7-17) mg/dL Creatinine (0.52-1.04) mg/dL Glucose (74-99) mg/dL POC Glucose (mg/dL) 73 L 117 H (75-99) mg/dL Calcium (8.4-10.2) mg/dL Total Protein (6.3-8.2) g/dL Albumin (3.5-5.0) g/dL 02/19/20 02/19/20 Range/Units 04:40 05:06 WBC (3.8-10.6) k/uL RBC (3.80-5.40) m/uL Hgb (11.4-16.0) gm/dL Hct (34.0-46.0) % RDW (11.5-15.5) % Neutrophils # (1.3-7.7) k/uL ABG pH 7.55 H (7.35-7.45) ABG pO2 49 L* (83-108) mmHg ABG HCO3 33 H (21-25) mmol/L ABG Total CO2 34 H (19-24) mmol/L ABG O2 Saturation 90.4 L (94-97) % Carbon Dioxide 33 H (22-30) mmol/L BUN 26 H (7-17) mg/dL Creatinine 0.35 L (0.52-1.04) mg/dL Glucose 127 H (74-99) mg/dL POC Glucose (mg/dL) (75-99) mg/dL Calcium 8.3 L (8.4-10.2) mg/dL Total Protein 4.6 L (6.3-8.2) g/dL Albumin 2.2 L (3.5-5.0) g/dL Assessment and Plan Assessment: 1. Acute Hypoxemic Respiratory Failure secondary to ARDS 2. ARDS secondary to COVID-19 3. Bicytopenia: Anemia/Thrombocytopenia 4. Anasarca 5. Pulmonary Embolism without cor pulmonale, History of DVT 6. Paroxysmal Atrial Fibrillation with RVR 7. Enterococcus and E. coli Complicated UTI 79 year old woman with history of HTN, DVT presented with dyspnea and found to have acute hypoxemic respiratory failure secondary to COVID-19 positive status as well as pulmonary embolism discovered on admission. She was discovered to be in A Fib with RVR while on the selective unit, and was ultimately controlled with metoprolol and amiodarone. She developed ARDS during her hospitalization, and ultimately required mechanical ventilation. She was intubated on 01/15, and since that time has not been able to be weaned. Covid 19 pneumonia with acute hypoxic respiratory failure, ARDS - Failing weaning trials, now with trach/peg 02/03 - Completed Remdesivir on 01/15 - s/p Dexamethasone day #17 days completed - Status post convalescent plasma 01/14 - Continue zinc, vitamin C, vitamin D, Pepcid, and melatonin Right upper extremity swelling -Ultrasound ordered to rule out DVT -if DVT present PICC line should be discontinued and another IV access should be established Labile Blood Pressure - AM cortisol does not indicate adrenal insufficiency Anemia, undetermined cause, thrombocytopenia, likely reactive - Status post 2 units of blood since admission - Hemoglobin Stable now DIffuse Anasarca Pulmonary embolus without right ventricular strain, history of prior DVT - Lovenox P. A fib with RVR - lovenox, amio - now in NSR - metoprolol 25mg BID Entercoccus and E coli UTI -Status post treatment with Levaquin, stop date 01/31 Thrombocytopenia KALYAN due to ATN with resultant metabolic acidosis and hyperphosphatemia, resolved Septic shock, resolved Hypokalemia, resolved DVT prophylaxis: Lovenox for PE Discussed with: Nursing, ICU team Anticipated discharge: TBD Anticipated discharge place: [facility]
--- NOTE | 2020-02-19 13:19 | US ---
EXAM: US Duplex Right Upper Extremity Veins CLINICAL HISTORY: ITS.REASON US Reason: rule out DVT TECHNIQUE: Real-time duplex ultrasound scan of the right upper extremity veins integrating B-mode two-dimensional vascular structure, Doppler spectral analysis, color flow Doppler imaging and compression. COMPARISON: None FINDINGS: Deep veins: Unremarkable. No DVT in the internal jugular, subclavian, axillary, or brachial veins. The veins demonstrate normal color flow, are normally compressible, with normal phasic flow and/or augmentation response. Superficial veins: Unremarkable. No thrombus in the visualized basilic and cephalic veins. Soft tissues: Soft tissue edema. IMPRESSION: No venous thrombosis in the right upper extremity.
[2020-02-20] MEDS: NOREPINEPHRINE 4 MG in SODIUM CHLORIDE 0.9% 250 ML IV SCH ×3 (00:17→16:00)
[2020-02-20] MEDS: INSULIN ASPART (NovoLOG) 100 UNIT/ML VIAL SQ SCH ×4 (00:49→18:16)
[2020-02-20] MEDS: KETOROLAC 15 MG/ML 1 ML VIAL IVP PRN (04:40)
[2020-02-20 04:44] LABS: Anisocytosis Slight; Basophils % (A) 0 %; Eosinophils # (A) 0.4 k/uL (0-0.7); Eosinophils % (A) 4 %; HCT 27.5 % (34.0-46.0); HGB 8.9 gm/dL (11.4-16.0); Hypochromasia Moderate; Lymphocytes # (A) 1.1 k/uL (1.0-4.8); Lymphocytes % (A) 12 %; MCHC 32.3 g/dL (31.0-37.0); MCV 96.1 fL (80.0-100.0); Mean Platelet Volume 8.8; Monocytes # (A) 0.4 k/uL (0-1.0); Monocytes % (A) 5 %; Neutrophils # (A) 7.2 k/uL (1.3-7.7); Neutrophils % (A) 78 %; Platelet Count 274 k/uL (150-450); RBC 2.87 m/uL (3.80-5.40); RDW 16.5 % (11.5-15.5); WBC 9.1 k/uL (3.8-10.6)
[2020-02-20 04:54] LABS: ABG Base Excess 11.2 mmol/L; ABG HCO3 34 mmol/L (21-25); ABG Oxygen Saturation 97.6 % (94-97); ABG PCO2 41 mmHg (35-45); ABG PH 7.52 (7.35-7.45); ABG PO2 74 mmHg (83-108); ABG TCO2 35 mmol/L (19-24)
[2020-02-20 05:06] LABS: ALT 21 U/L (4-34); AST 27 U/L (14-36); African American GFR (CKD) >90 (>60 ml/min/1.73 sqM); Albumin 2.1 g/dL (3.5-5.0); Alkaline Phosphatase 60 U/L (38-126); Anion Gap -2 mmol/L; Blood Urea Nitrogen 35 mg/dL (7-17); Calcium 8.3 mg/dL (8.4-10.2); Carbon Dioxide 34 mmol/L (22-30); Chloride 108 mmol/L (98-107); Glucose 105 mg/dL (74-99); Non-African American GFR(CKD) >90 (>60 ml/min/1.73 sqM); Potassium 3.6 mmol/L (3.5-5.1); Sodium 140 mmol/L (137-145); Total Bilirubin 0.4 mg/dL (0.2-1.3); Total Protein 4.3 g/dL (6.3-8.2)
[2020-02-20] MEDS ORDERED: POTASSIUM BICARBONATE/CIT AC 20 MEQ TABLET.EFF NG-TUBE SCH ×2 (07:00→11:00)
[2020-02-20] MEDS ORDERED: ALPRAZolam 0.5 MG TAB PO PRN (08:04)
[2020-02-20] MEDS: ALBUTEROL HFA INHALER INHALATION SCH ×4 (08:09→20:07)
[2020-02-20] MEDS: AMIODARONE 200 MG TAB PO SCH (08:31)
[2020-02-20] MEDS: ASCORBIC ACID 500 MG TAB PO SCH (08:31)
[2020-02-20] MEDS: ENOXAPARIN 100 MG/ML SYRINGE SQ SCH ×2 (08:31→20:01)
[2020-02-20] MEDS: QUEtiapine 100 MG TAB PO SCH ×2 (08:31→15:43)
[2020-02-20] MEDS: CHLORHEXIDINE GLUCONATE 15 ML CUP MUCOUS MEM SCH ×2 (08:31→20:01)
[2020-02-20] MEDS: CHOLECALCIFEROL 1,000 UNIT TAB PO SCH (08:31)
[2020-02-20] MEDS: FAMOTIDINE 20 MG TAB PO SCH (08:31)
[2020-02-20] MEDS: METOPROLOL TARTRATE 25 MG TAB PO SCH ×2 (08:31→20:01)
[2020-02-20] MEDS: INSULIN DETEMIR (LEVEMIR) 100 UNIT/ML SYR SQ SCH ×2 (08:32→20:01)
[2020-02-20] MEDS: ALPRAZolam 0.5 MG TAB PO SCH ×3 (08:33→20:01)
[2020-02-20] MEDS: ZINC SULFATE 220 MG CAP PO SCH (10:03)
[2020-02-20] MEDS: predniSONE 20 MG TAB PO SCH (10:03)
--- NOTE | 2020-02-20 10:11 | PN ---
PROGRESS NOTE PULMONARY/CRITICAL CARE PROGRESS NOTE: DATE OF SERVICE: February 20, 2020. Critical care time greater than 30 minutes. HISTORY OF PRESENT ILLNESS: A 79-year-old female admitted way back on January 09, 2020 for COVID-19 pneumonia with acute hypoxemic respiratory failure. Also at that time, she was found to have a pulmonary embolism. The patient was intubated on January 15 for respiratory failure and has been on the mechanical vent all along. Because of failure to wean from mechanical ventilation, on February 03, the patient received a tracheostomy tube and a PEG tube by Dr. Gomez. Currently, the patient is a DNR. She remains on the ventilator in the pressure assist-control modality, with inspiratory pressure 22 cm of water, inspiratory time of 0.8 seconds, FiO2 of 50%, PEEP of 12, and rate of 26. Blood gases show pO2 of 74, pCO2 of 41 and a pH 7.52. Two days ago, we trialed her on some PSV and CPAP, she went for about 2 hours. Yesterday similarly, she only lasted about 20 minutes. One of the big issues is anxiety. The patient remains on saline at 30 mL an hour, propofol at 30 mcg/kg per minute and Vital high-protein at 50 mL an hour which is goal. The patient will be given Xanax 0.5 mg 4 times a day. We will see if we cannot wean her off the propofol that so that eventually we can get her to a long-term acute care facility. Again, the patient is a DNR. PHYSICAL EXAMINATION: VITAL SIGNS: Current vital signs are reviewed. Temperature is 98.8, heart rate 76, respiratory rate 32, blood pressure 124/70, mean 88 and saturations are in the mid to low 90s. Appears in no acute distress. Mildly tachypneic. HEENT: Examination is grossly unremarkable. NECK: Supple. Full range of motion. The patient does have a midline tracheostomy. CARDIOVASCULAR: Examination reveals regular rhythm and rate. Heart rate 76. Heart sounds are distant. S1, S2 normal. No murmur. LUNGS: Reveal diffuse coarse rhonchi. Breath sounds equal. No crackles. ABDOMEN: Soft. Bowel sounds are heard. EXTREMITIES: Intact. There is diffuse edema and anasarca. SKIN: Without rash. There are areas of ecchymoses. NEUROLOGIC: Examination is difficult to assess given her current level of sedation. LABS: Reviewed. White count 9.1, hemoglobin 8.9, hematocrit 27.5, platelet count 274,000, blood gases have been noted. Sodium 140, potassium 3.6, chloride 108, CO2 of 34. BUN and creatinine were 35 and 0.29. The rest of the labs are reviewed. Her most recent COVID test was negative. Microbiology shows Escherichia coli and Enterococcus faecalis in the urine from January 16. IMAGING: No chest x-ray today. A venous Doppler study showed no upper extremity deep venous thrombosis. CURRENT MEDICATIONS: Reviewed. She is on Tylenol, albuterol inhaler, Xanax, Cordarone, vitamin C, chlorhexidine, vitamin D3, Lovenox, Pepcid, insulin, Toradol, magnesium, metoprolol, Narcan, norepinephrine p.r.n., potassium replacement, prednisone, Seroquel, and zinc. ASSESSMENT: 1. Acute hypoxemic respiratory failure secondary to COVID-19 pneumonia/pneumonitis, with subsequent development of acute respiratory distress syndrome, and failure to wean from mechanical ventilation. The patient was initially intubated on January 15. 2. Status post tracheostomy and PEG tube placement, February 04, 2020, by Dr. Gomez, for failure to wean. 3. Acute right-sided pulmonary embolism, likely secondary to hypercoagulable state, induced by the patient's COVID-19 infection, currently being treated. 4. Recurrent atrial fibrillation. 5. Remote history of deep venous thrombosis. 6. Acute kidney injury. 7. Hypercoagulable state. 8. Toxic/metabolic encephalopathy. 9. Chronic anemia. 10.Failure to wean from mechanical ventilation. PLAN: The patient did not tolerate weaning yesterday. She only lasted 20 minutes on pressure support and CPAP. The patient is receiving tube feeds. We will see if we cannot wean the propofol off. We will give the patient Xanax 0.5 mg 4 times a day. The hope is to get her to a long-term acute care. She is a DNR. Overall prognosis is very poor. No additional recommendations are made at this time. Critical care time greater than 30 minutes. MMODL / IJN: [id number] /
--- NOTE | 2020-02-20 11:16 | P.PN ---
Subjective Progress Note Date: 02/20/20 Patient is sedated today. She is being ventilated with full support via tracheostomy tube. Her blood pressure is very labile and dropped last night to the point requiring vasopressors. Patient is been having difficulty weaning off of sedation with significant tachypnea Environmental Journalist started a trial of Xanax every 6 hours in an attempt to wean the patient off of propofol Objective - Vital Signs Vital signs: Vital Signs Temp 98.8 F 02/20/20 08:00 Pulse 62 02/20/20 11:00 Resp 20 02/20/20 11:00 BP 138/69 02/20/20 11:00 Pulse Ox 95 02/20/20 11:00 Intake & Output 02/19/20 02/20/20 02/20/20 18:59 06:59 18:59 Intake Total 2825.534 4383.630 716.374 Output Total 835 415 385 Balance 599.999 871.630 331.374 Weight 84.7 kg 86.3 kg Intake: IV 429 363 165 .9 @ KVO 390 330 150 pressure bags 39 33 15 Intake, IV Titration 187.999 223.630 161.374 Amount Diltiazem 125 mg In 109.75 59.25 Sodium Chloride 0.9% 100 ml @ 5 MG/HR 5 mls/hr IV .Q24H [facility] Rx#:[id number] Norepinephrine 4 mg In 21.449 Sodium Chloride 0.9% 250 ml @ 0.05 MCG/KG/MIN 15. 431 mls/hr IV .[id number] [facility] Rx#:[id number] Norepinephrine 4 mg In 30.979 147.907 Sodium Chloride 0.9% 250 ml @ 0.05 MCG/KG/MIN 16. 135 mls/hr IV .[id number] [facility] Rx#:[id number] propofoL 1,000 mg In 56.800 133.401 13.467 Empty Bag 1 bag @ Titrate IV .Q0M [facility] Rx#: [id number] Tube Feeding 698 550 250 Other 120 150 140 Output: Urine 835 415 385 Other: Voiding Method Indwelling Catheter Indwelling Catheter Indwelling Catheter ABP, PAP, CO, CI - Last Documented Arterial Blood Pressure 98/47 - Exam General: The patient is sedated and mechanically ventilated. Trachea in place. Eye: there is normal conjunctiva bilaterally. Cardiovascular: Normal S1-S2, no S3-S4, no murmurs. Respiratory: Lungs with mechanical ventilator sounds Gastrointestinal: Abdomen is soft, nontender. PEG tube in place Musculoskeletal: There is +1 pedal edema. Skin: Skin is warm and dry - Labs CBC & Chem 7: 02/20/20 04:30 02/20/20 10:00 Labs: Abnormal Lab Results - Last 24 Hours (Table) 02/20/20 02/20/20 02/20/20 Range/Units 04:30 04:30 04:47 RBC 2.87 L (3.80-5.40) m/uL Hgb 8.9 L (11.4-16.0) gm/dL Hct 27.5 L (34.0-46.0) % RDW 16.5 H (11.5-15.5) % ABG pH 7.52 H (7.35-7.45) ABG pO2 74 L (83-108) mmHg ABG HCO3 34 H (21-25) mmol/L ABG Total CO2 35 H (19-24) mmol/L ABG O2 Saturation 97.6 H (94-97) % Chloride 108 H (98-107) mmol/L Carbon Dioxide 34 H (22-30) mmol/L BUN 35 H (7-17) mg/dL Creatinine 0.29 L (0.52-1.04) mg/dL Glucose 105 H (74-99) mg/dL Calcium 8.3 L (8.4-10.2) mg/dL Total Protein 4.3 L (6.3-8.2) g/dL Albumin 2.1 L (3.5-5.0) g/dL Assessment and Plan Assessment: 1. Acute Hypoxemic Respiratory Failure secondary to ARDS 2. ARDS secondary to COVID-19 3. Bicytopenia: Anemia/Thrombocytopenia 4. Anasarca 5. Pulmonary Embolism without cor pulmonale, History of DVT 6. Paroxysmal Atrial Fibrillation with RVR 7. Enterococcus and E. coli Complicated UTI 79 year old woman with history of HTN, DVT presented with dyspnea and found to have acute hypoxemic respiratory failure secondary to COVID-19 positive status as well as pulmonary embolism discovered on admission. She was discovered to be in A Fib with RVR while on the selective unit, and was ultimately controlled with metoprolol and amiodarone. She developed ARDS during her hospitalization, and ultimately required mechanical ventilation. She was intubated on 01/15, and since that time has not been able to be weaned. Covid 19 pneumonia with acute hypoxic respiratory failure, ARDS - Failing weaning trials, now with trach/peg 02/03 - Completed Remdesivir on 01/15 - s/p Dexamethasone day #17 days completed - Status post convalescent plasma 01/14 - Continue zinc, vitamin C, vitamin D, Pepcid, and melatonin Right upper extremity swelling -Ultrasound ordered to rule out DVT -if DVT present PICC line should be discontinued and another IV access should be established Labile Blood Pressure, requiring vasopressors intermittently - AM cortisol does not indicate adrenal insufficiency Anemia, undetermined cause, thrombocytopenia, likely reactive - Status post 2 units of blood since admission - Hemoglobin Stable now DIffuse Anasarca Pulmonary embolus without right ventricular strain, history of prior DVT - Lovenox P. A fib with RVR - lovenox, amio - now in NSR - metoprolol 25mg BID Entercoccus and E coli UTI -Status post treatment with Levaquin, stop date 01/31 Thrombocytopenia KALYAN due to ATN with resultant metabolic acidosis and hyperphosphatemia, resolved Septic shock, resolved Hypokalemia, resolved DVT prophylaxis: Lovenox for PE Discussed with: Nursing, ICU team Anticipated discharge: TBD Anticipated discharge place: [facility]
[2020-02-21] MEDS: QUEtiapine 100 MG TAB PO SCH ×4 (00:04→21:27)
[2020-02-21] MEDS: INSULIN ASPART (NovoLOG) 100 UNIT/ML VIAL SQ SCH ×5 (00:04→23:56)
[2020-02-21] MEDS: KETOROLAC 15 MG/ML 1 ML VIAL IVP PRN ×2 (01:18→08:30)
[2020-02-21] MEDS: ALPRAZolam 0.5 MG TAB PO SCH ×4 (02:57→21:27)
[2020-02-21 05:11] LABS: ABG Base Excess 9.7 mmol/L; ABG HCO3 35 mmol/L (21-25); ABG Oxygen Saturation 98.4 % (94-97); ABG PCO2 63 mmHg (35-45); ABG PH 7.36 (7.35-7.45); ABG PO2 92 mmHg (83-108); ABG TCO2 37 mmol/L (19-24); Allen Test Performed? Yes
[2020-02-21] MEDS: DILTIAZEM 125 MG in SODIUM CHLORIDE 0.9% 100 ML IV SCH (05:33)
[2020-02-21 05:51] LABS: Anisocytosis Slight; HCT 27.9 % (34.0-46.0); HGB 8.4 gm/dL (11.4-16.0); Hypochromasia Marked; MCH 29.9 pg (25.0-35.0); MCHC 30.1 g/dL (31.0-37.0); MCV 99.5 fL (80.0-100.0); Macrocytosis Slight; Mean Platelet Volume 9.4; Platelet Count 266 k/uL (150-450); RBC 2.81 m/uL (3.80-5.40); RDW 16.5 % (11.5-15.5); WBC 7.8 k/uL (3.8-10.6)
--- NOTE | 2020-02-21 06:03 | XR ---
EXAM: XR Chest, 1 View CLINICAL HISTORY: Reason: COVID TECHNIQUE: Frontal view of the chest. COMPARISON: 02/19/20 at 0553 hrs. FINDINGS: Lungs: Tracheostomy tube again seen, appearing well positioned. Again seen are infiltrative changes in both lungs, consistent with known multifocal infectious process. Allowing for slight change in lung inflation, these appear grossly stable when compared to the prior exam 2 days ago. Pleural space: Unremarkable. No pneumothorax. Heart: Unremarkable. No cardiomegaly. Mediastinum: No mediastinal widening or shift. Again seen is a right- sided PICC, unchanged in position. Bones/joints: Unremarkable. IMPRESSION: Stable exam.
[2020-02-21 06:17] LABS: African American GFR (CKD) >90 (>60 ml/min/1.73 sqM); Anion Gap -7 mmol/L; Blood Urea Nitrogen 37 mg/dL (7-17); Calcium 8.3 mg/dL (8.4-10.2); Carbon Dioxide 38 mmol/L (22-30); Chloride 109 mmol/L (98-107); Glucose 101 mg/dL (74-99); Non-African American GFR(CKD) >90 (>60 ml/min/1.73 sqM); Potassium 4.3 mmol/L (3.5-5.1); Sodium 140 mmol/L (137-145)
[2020-02-21] MEDS: AMIODARONE 200 MG TAB PO SCH (08:28)
[2020-02-21] MEDS: FAMOTIDINE 20 MG TAB PO SCH (08:28)
[2020-02-21] MEDS: predniSONE 20 MG TAB PO SCH (08:28)
[2020-02-21] MEDS: ENOXAPARIN 100 MG/ML SYRINGE SQ SCH ×3 (08:29→21:28)
[2020-02-21] MEDS: INSULIN DETEMIR (LEVEMIR) 100 UNIT/ML SYR SQ SCH ×2 (08:29→21:28)
[2020-02-21] MEDS: CHLORHEXIDINE GLUCONATE 15 ML CUP MUCOUS MEM SCH ×2 (08:29→21:27)
[2020-02-21] MEDS: CHOLECALCIFEROL 1,000 UNIT TAB PO SCH (08:29)
[2020-02-21] MEDS: ASCORBIC ACID 500 MG TAB PO SCH (08:29)
[2020-02-21] MEDS: METOPROLOL TARTRATE 25 MG TAB PO SCH ×2 (08:29→21:28)
[2020-02-21] MEDS: ZINC SULFATE 220 MG CAP PO SCH (08:29)
[2020-02-21] MEDS: ALBUTEROL HFA INHALER INHALATION SCH ×4 (09:37→20:51)
--- NOTE | 2020-02-21 10:59 | PN ---
PROGRESS NOTE PULMONARY/CRITICAL CARE PROGRESS NOTE: DATE OF SERVICE: February 21, 2020. Critical care time 32 minutes. INTERVAL HISTORY: This is a 79-year-old female admitted back on January 09, 2020 for COVID-19 pneumonia with acute hypoxemic respiratory failure. At that same time, she was noted to have a pulmonary embolism. The patient was intubated on January 15 for respiratory failure, has been on the mechanical ventilator all along. Because of failure to wean from mechanical ventilation, on February 03, she underwent a tracheostomy and PEG tube procedure by Dr. Gomez. The patient is currently a DNR. The family hopes to get her to a long-term acute care facility. Currently, the patient is on the pressure assist-control modality. Inspiratory pressure is 22 cm of water. Inspiratory time is 0.8 seconds, FiO2 50%, PEEP of 12 and her rate is 26. Blood gases show pO2 of 92, pCO2 of 63 and a pH of 7.36. Currently, she is on saline at 30 mL an hour, Vital high-protein at 50 with a goal of 50 mL an hour, propofol at 20 mcg/kg per minute with hope of maybe getting her off the propofol altogether. We did add some Xanax to her regimen yesterday. PHYSICAL EXAMINATION: Current vital signs include temperature 98.1, heart rate 73, respiratory rate is 26, blood pressure 165/91, mean 115, saturations are between 93% and 94%. She appears sedated. HEENT: Examination is grossly unremarkable. Neck is supple, full range of motion. There is midline tracheostomy. CARDIOVASCULAR: Examination reveals regular rhythm and rate. Heart rate 73 beats per minute. S1, S2 normal. No S3, S4, or murmur. LUNGS: Reveal diffuse coarse rhonchi and crackles. Breath sounds equal. Abdomen is soft, bowel sounds are noted. EXTREMITIES: Intact. There is some edema. No cyanosis or clubbing. SKIN: Without rash. NEUROLOGIC: Examination is difficult to assess given her current level of sedation. LAB DATA: Reviewed. White count 7.8, hemoglobin 8.4, hematocrit 27.9, platelet count 266,000, blood gases show a pO2 of 92, pCO2 of 63 and a pH of 7.36. Sodium 140, potassium 4.3, chloride 109, CO2 38, anion gap is noted. BUN and creatinine were 37 and 0.28. The rest of her labs look okay. Microbiology was positive back on January 16 in the urine for E coli and Enterococcus faecalis. IMAGING: The chest x-ray report shows a stable examination with diffuse bilateral patchy infiltrates. X-ray could not be viewed. CURRENT MEDICATIONS: Reviewed. She is currently on Tylenol, albuterol inhaler, Xanax, Cordarone, vitamin C, chlorhexidine, vitamin D3, Lovenox, famotidine, insulin, Toradol, magnesium replacement, metoprolol, Narcan, norepinephrine p.r.n., potassium replacement, prednisone, Seroquel, and zinc. ASSESSMENT: 1. Acute hypoxemic respiratory failure secondary to COVID-19 pneumonia/pneumonitis, with subsequent development of acute respiratory distress syndrome, and failure to wean from mechanical ventilation. The patient was initially intubated on January 16, 2020. 2. Status post tracheostomy and PEG tube placement, February 04, 2020, by Dr. Gomez, for failure to wean from mechanical ventilation. 3. Acute right-sided pulmonary embolism, likely secondary to hypercoagulable state induced by patient's COVID-19 infection, currently being treated. 4. Recurrent episodes of atrial fibrillation. 5. Remote history of deep venous thrombosis. 6. Acute kidney injury. 7. Hypercoagulable state. 8. Toxic/metabolic encephalopathy. 9. Chronic anemia. 10.Failure to wean from mechanical ventilation. PLAN: Yesterday, we added Xanax 0.5 four times a day. The hope is to get her off the propofol altogether so that we get her to long-term acute care. No vent changes today. She is being nourished at goal. She is getting saline at 30 mL an hour. Propofol running at 20 mcg/kg per minute, which is less than it was over the last couple of days. No additional recommendations are made. Prognosis is guarded. Critical care time 32 minutes. MMODL / IJN: [id number] /
[2020-02-21] MEDS ORDERED: polyethylene glycoL 3350 17 GM POWD.PACK PO STA (11:21)
[2020-02-21] MEDS: HYDROcodone/APAP 15 ML SOLUTION PO PRN ×2 (11:43→17:57)
--- NOTE | 2020-02-21 12:29 | XR ---
EXAMINATION TYPE: XR chest 1V portable DATE OF EXAM: 02/19/2020 Comparison: 02/18/2020 Clinical History: 79-year-old female ICU Management Findings: Tracheostomy cannula. Patient rotated towards the left altering the normal cardiac and mediastinal co ntours. Right PICC tip at the cavoatrial junction. Heart upper limits of normal in size. Subcutaneous emphysema at the base of the neck redemonstrated. Diffuse interstitial opacities persist on both lisbet es with possible trace effusions. Impression: Continued diffuse bilateral interstitial infiltrates and trace pleural effusions. Subcutaneous emphys blanca the base of the neck also persists.
--- NOTE | 2020-02-21 17:13 | P.PN ---
Subjective Progress Note Date: 02/21/20 (delayed charting seen at 1045) Principal diagnosis: shortness of breath Patient is a 79-year-old female history of DVT who presented to the emergency department with complaints of shortness of breath. She initially had a DVT and stopped her Xarelto as she was concerned about an interaction with the azithromycin she had been prescribed due to COVID 19. In the ER she underwent an extensive evaluation. She is on have a pulmonary embolism was started on a heparin drip, she was found have Covid 19 pneumonia and was started on steroids, zinc, vitamin C, and melatonin. Pulmonary was consulted. She was admitted to the selective care unit. She was found to be in atrial fibrillation which was new onset. Cardiology was consulted. She was started on low-dose metoprolol. On the evening of 01/09 she went and A. fib with RVR was started on Cardizem drip. On the morning of 01/10 she was seen by cardiology Cardizem drip was discontinued and she was started on metoprolol 25 mg twice a day. Her oxygen requirements were increasing throughout her hospital stay. Pulmonary determined she was not a candidate for aggressive ears are Covid symptoms that started 2 w eeks prior. Case had been discussed with vascular who felt she was not a candidate for catheter directed TPA/EKOS. On 01/11 she was seen by pulmonary and started on Remedesivir. She was transferred to the ICU overnight on 01/11 due to progressive hypoxemia. She required aerosol as well as a nonrebreather. By the morning of 01/14 she had received 2 units of convalescent plasma. On the morning of 01/15 she was requiring BiPAP. She had a triple-lumen catheter placed. She failed BiPAP therapy and was subsequently intubated overnight on 01/15. After intubation she again went into A. fib with RVR and required a Cardizem drip for a short time but then converted to normal sinus rhythm. She did require levothyroxine secondary to hypotension. She again went into A. fib with RVR on 01/17 and secondary to her hypotension she was started on amiodarone. Levophed weaned off by 01/18 and she was able to be switched to oral amiodarone. During her ICU stay her heparin drip was transitioned to Lovenox subcutaneous. She still has not been able to wean from the ventilator. PEEP decreased 01/21. She has following commands but very weak on 01/22. On 01/23 her sedation was stopped and she did become agitated requiring resedation. Her HgB dropped for unknown reason on 01/24 and was felt to maybe be due to leaking from her around her subclavian cath. She was given 1 unit pRBC. Attempted to wean sedation but she became agitated. On 01/26 required increasing sedation and was placed back on levophed. She has had a prolonged hospital course. PEg and trach on 02/03. She remain mechanically ventilated and has been unable to wean and quickly develops tachypena and tachycardia. Medication adjustments are being made. Heart rate control has been difficult, currently off metoprolol due to labile BP but did required cardizem gtt for HR control on 02/19 Patient seen and examined at bedside. No additional events overnight per nursing, tolerated trial of propofol off but then developed bleeding at trach. Patient nods yes to pain. General: Ill-appearing, no distress, appears at stated age Derm: warm, dry, Head: atraumatic, normocephalic, symmetric Eyes: EOMI, no lid lag, anicteric sclera Mouth: no lip lesion, mucus membranes dry Cardiovascular: S1S2 reg, no murmur, positive posterior tibial pulse bilateral, Lungs: Coarse breath sounds bilateral, no rhonchi, no rales, no accessory muscle use, on vent, Trach in place with blood soaked dressing Abdominal: soft, nontender to palpation, no guarding, no appreciable organomegaly Ext: no gross muscle atrophy, diffuse anasarca (improving), no contractures Neuro: No gross muscle atrophy, no tremors noted, moving right fingers and bi lateral toes Psych: eyes open. Shakes head yes to pain. Covid 19 pneumonia with acute hypoxic respiratory failure, ARDS - Completed Remdesivir on 01/15 - s/p Dexamethasone day #17 days completed - Status post convalescent plasma 01/14 - Pulmonary recommendations appreciated - Attempting to wean sedation Trach site bleeding - hold toradol - monitoring - hold AM lovenox dose Anxiety - on scheduled Xanax and seroquel - Add norco vai PEG for pain control. Anemia, undetermined cause,, likely reactive - 1 unit pRBC 01/25/2020, and 02/07 - Likely now with ICU induced anemia - Follow CBC Pulmonary embolus without right ventricular strain, history of prior DVT - Lovenox P. A fib with RVR - intermittently requiring cardizem gtt, has been taking of metoprolol - lovenox, amio - now in NSR Entercoccus and E coli UTI, s/p treatment Thrombocytopenia, resolved KALYAN due to ATN with resultant metabolic acidosis and hyperphosphatemia, resolved Septic shock, resolved Hypokalemia, resolved DIffuse Anasarca, improving DVT prophylaxis: Lovenox for PE Discussed with: Nursing Anticipated discharge: undetermined [facility] A total of 25 minutes was spent on the care of this complex patient more than 50% of the time was spent in counseling and care coordination. Objective - Vital Signs Vital signs: Vital Signs Temp 98.6 F 02/21/20 16:00 Pulse 76 02/21/20 16:00 Resp 28 H 02/21/20 16:00 BP 148/90 02/21/20 16:00 Pulse Ox 95 02/21/20 16:00 Intake & Output 02/20/20 02/21/20 02/21/20 18:59 06:59 18:59 Intake Total 2028.066 4095.168 6582.471 Output Total 1145 765 660 Balance 883.066 614.948 478.471 Weight 86.3 kg 87 kg Intake: IV 396 396 330 .9 @ KVO 360 360 300 pressure bags 36 36 30 Intake, IV Titration 792.066 123.948 48.471 Amount Norepinephrine 4 mg In 623.852 Sodium Chloride 0.9% 250 ml @ 0.05 MCG/KG/MIN 16. 135 mls/hr IV .[id number] [facility] Rx#:[id number] propofoL 1,000 mg In 168.214 123.948 48.471 Empty Bag 1 bag @ Titrate IV .Q0M [facility] Rx#: [id number] Oral 200 Tube Feeding 600 600 450 Other 240 60 310 Output: Urine 1145 765 660 Other: Voiding Method Indwelling Catheter Indwelling Catheter Indwelling Catheter ABP, PAP, CO, CI - Last Documented Arterial Blood Pressure 132/56 - Labs CBC & Chem 7: 02/21/20 05:42 02/21/20 05:42 Labs: Abnormal Lab Results - Last 24 Hours (Table) 02/21/20 02/21/2002/20/20 Range/Units 05:06 05:42 05:42 RBC 2.81 L (3.80-5.40) m/uL Hgb 8.4 L (11.4-16.0) gm/dL Hct 27.9 L (34.0-46.0) % MCHC 30.1 L (31.0-37.0) g/dL RDW 16.5 H (11.5-15.5) % ABG pCO2 63 H (35-45) mmHg ABG HCO3 35 H (21-25) mmol/L ABG Total CO2 37 H (19-24) mmol/L ABG O2 Saturation 98.4 H (94-97) % Chloride 109 H (98-107) mmol/L Carbon Dioxide 38 H (22-30) mmol/L BUN 37 H (7-17) mg/dL Creatinine 0.28 L (0.52-1.04) mg/dL Glucose 101 H (74-99) mg/dL Calcium 8.3 L (8.4-10.2) mg/dL
[2020-02-22] MEDS: HYDROcodone/APAP 15 ML SOLUTION PO PRN ×3 (02:21→18:28)
[2020-02-22] MEDS: ALPRAZolam 0.5 MG TAB PO SCH ×4 (02:21→20:37)
[2020-02-22 04:20] LABS: Anisocytosis Slight; Basophils # (A) 0.1 k/uL (0-0.2); Basophils % (A) 1 %; Eosinophils # (A) 0.6 k/uL (0-0.7); Eosinophils % (A) 6 %; HCT 30.4 % (34.0-46.0); HGB 9.5 gm/dL (11.4-16.0); Hypochromasia Marked; Lymphocytes # (A) 1.2 k/uL (1.0-4.8); Lymphocytes % (A) 14 %; MCH 31.2 pg (25.0-35.0); MCHC 31.4 g/dL (31.0-37.0); MCV 99.5 fL (80.0-100.0); Macrocytosis Slight; Mean Platelet Volume 8.4; Monocytes # (A) 0.5 k/uL (0-1.0); Monocytes % (A) 5 %; Neutrophils # (A) 6.5 k/uL (1.3-7.7); Neutrophils % (A) 73 %; Platelet Count 253 k/uL (150-450); RBC 3.05 m/uL (3.80-5.40); RDW 16.6 % (11.5-15.5); WBC 8.9 k/uL (3.8-10.6)
[2020-02-22 04:31] LABS: African American GFR (CKD) >90 (>60 ml/min/1.73 sqM); Anion Gap -3 mmol/L; Blood Urea Nitrogen 39 mg/dL (7-17); Calcium 8.5 mg/dL (8.4-10.2); Carbon Dioxide 37 mmol/L (22-30); Chloride 106 mmol/L (98-107); Glucose 111 mg/dL (74-99); Non-African American GFR(CKD) >90 (>60 ml/min/1.73 sqM); Phosphorus 2.9 mg/dL (2.5-4.5); Potassium 4.4 mmol/L (3.5-5.1); Sodium 140 mmol/L (137-145)
[2020-02-22 05:17] LABS: ABG Base Excess 9.5 mmol/L; ABG HCO3 35 mmol/L (21-25); ABG Oxygen Saturation 96.8 % (94-97); ABG PCO2 62 mmHg (35-45); ABG PH 7.36 (7.35-7.45); ABG PO2 78 mmHg (83-108); ABG TCO2 37 mmol/L (19-24); Allen Test Performed? Yes
[2020-02-22] MEDS: INSULIN ASPART (NovoLOG) 100 UNIT/ML VIAL SQ SCH ×3 (06:40→17:35)
--- NOTE | 2020-02-22 07:54 | XR ---
EXAMINATION TYPE: XR chest 1V portable DATE OF EXAM: 02/22/2020 Comparison: 02/21/2020 Clinical History: 79-year-old female COVID Findings: Tracheostomy cannula. Right PICC tip at the lower SVC. Heart normal size. Hyperinflation. Patchy and odontoid airspace opacity in the right and interstitial opacity throughout the left lung. No signific ant change. Impression: Continued bilateral diffuse opacities, right greater than left.
[2020-02-22] MEDS: ZINC SULFATE 220 MG CAP PO SCH (08:23)
[2020-02-22] MEDS: AMIODARONE 200 MG TAB PO SCH (08:23)
[2020-02-22] MEDS: ASCORBIC ACID 500 MG TAB PO SCH (08:23)
[2020-02-22] MEDS: CHOLECALCIFEROL 1,000 UNIT TAB PO SCH (08:23)
[2020-02-22] MEDS: ENOXAPARIN 100 MG/ML SYRINGE SQ SCH ×2 (08:23→21:25)
[2020-02-22] MEDS: FAMOTIDINE 20 MG TAB PO SCH (08:23)
[2020-02-22] MEDS: predniSONE 20 MG TAB PO SCH (08:24)
[2020-02-22] MEDS: QUEtiapine 100 MG TAB PO SCH ×3 (08:24→21:25)
[2020-02-22] MEDS: CHLORHEXIDINE GLUCONATE 15 ML CUP MUCOUS MEM SCH ×2 (08:24→20:37)
[2020-02-22] MEDS: METOPROLOL TARTRATE 25 MG TAB PO SCH ×2 (08:29→20:37)
[2020-02-22] MEDS: INSULIN DETEMIR (LEVEMIR) 100 UNIT/ML SYR SQ SCH ×2 (08:32→20:37)
[2020-02-22] MEDS: ALBUTEROL HFA INHALER INHALATION SCH ×4 (09:18→19:41)
[2020-02-22 09:30] LABS: Glucose,Whole Blood 154 mg/dL (75-99)
[2020-02-22 09:30] LABS: Glucose,Whole Blood 116 mg/dL (75-99)
[2020-02-22 09:31] LABS: Glucose,Whole Blood 123 mg/dL (75-99)
[2020-02-22 09:31] LABS: Glucose,Whole Blood 123 mg/dL (75-99)
[2020-02-22 09:31] LABS: Glucose,Whole Blood 163 mg/dL (75-99)
[2020-02-22 09:31] LABS: Glucose,Whole Blood 126 mg/dL (75-99)
[2020-02-22 09:32] LABS: Glucose,Whole Blood 110 mg/dL (75-99)
[2020-02-22 09:32] LABS: Glucose,Whole Blood 113 mg/dL (75-99)
[2020-02-22 09:33] LABS: Glucose,Whole Blood 158 mg/dL (75-99)
[2020-02-22 09:33] LABS: Glucose,Whole Blood 156 mg/dL (75-99)
[2020-02-22 09:34] LABS: Glucose,Whole Blood 134 mg/dL (75-99)
[2020-02-22 09:34] LABS: Glucose,Whole Blood 104 mg/dL (75-99)
[2020-02-22 09:34] LABS: Glucose,Whole Blood 146 mg/dL (75-99)
[2020-02-22 09:35] LABS: Glucose,Whole Blood 168 mg/dL (75-99)
[2020-02-22 09:41] LABS: Glucose,Whole Blood 116 mg/dL (75-99)
[2020-02-22 09:41] LABS: Glucose,Whole Blood 119 mg/dL (75-99)
[2020-02-22 09:41] LABS: Glucose,Whole Blood 130 mg/dL (75-99)
[2020-02-22 09:41] LABS: Glucose,Whole Blood 118 mg/dL (75-99)
--- NOTE | 2020-02-22 10:00 | PN ---
PROGRESS NOTE Elena is a 79-year-old lady with history of COVID pneumonia who is currently on long- term vent. Has been in the hospital for almost 6 weeks now. We did an initial consultation on here when she first came and have started seeing her on an as-needed basis since. I have been asked to see her again as she developed an episode of atrial fibrillation with rapid ventricular rate this morning. I have been reconsulted because of an episode of atrial fibrillation. The patient is currently on Cordarone, Lovenox 90 mg subcu b.i.d., Lopressor 25 b.i.d. She converted back to sinus rhythm spontaneously. I have reviewed her chart and spoke with the nurse, reviewed her labs. Her exam shows that she is in sinus rhythm with a heart rate of 86 beats per minute. Blood pressure is 140/76, respiratory rate is 18, O2 saturation is 95% on 50% FiO2. Her labs show that the hemoglobin is 9.5, platelet count is 253. Potassium is 4.4, creatinine is 0.29. I have not performed a detailed physical exam of this patient because she is COVID positive, to cut down on the usage of personal protective equipment. ASSESSMENT: 1. Paroxysmal atrial fibrillation. 2. COVID infection with related complications. PLAN: Patient will continue current medications. If necessary I will increase the dose of amiodarone to 200 b.i.d. MMODL / DARRICKN: [id number] /
--- NOTE | 2020-02-22 11:30 | PN ---
PROGRESS NOTE DATE OF SERVICE: February 22, 2020 Critical care time greater than 30 minutes. INTERVAL HISTORY: This is a 79-year-old female admitted back on January 09, 2020 for COVID-19 pneumonitis with acute hypoxemic respiratory failure. At the same time, she was also diagnosed with pulmonary embolism. She was intubated on January 15 for respiratory failure, has been on mechanical ventilator all along. Because of failure to progress and wean from mechanical ventilation, on February 03, she underwent a tracheostomy and PEG tube placement by Dr. Gomez. The patient is currently a DNR. The family is hoping to get her to a long-term acute care facility. Currently, the patient remains on the pressure assist-control modality with an inspiratory pressure of 22 cm of water, inspiratory time is 0.8 seconds, rate 26 breaths per minute, FiO2 of 50%, PEEP of 12. Blood gases show pO2 of 78, pCO2 of 62, pH of 7.36. The patient is on saline at 30 mL an hour. She is also getting Vital high-protein at 50 with a goal of 50 mL an hour. Yesterday, she was on 30 mcg/kg per minute of propofol. We added Xanax. That has been weaned off. PHYSICAL EXAMINATION: VITAL SIGNS: Current vital signs are reviewed. Temperature is 97.8, heart rate 86, respiratory rate 17, blood pressure 145/76, mean 99, saturations are 95%. She appears in no acute distress. HEENT: Examination is grossly unremarkable. NECK: Supple. Midline tracheostomy. CARDIOVASCULAR: Examination reveals regular rhythm and rate. Heart rate mid 80s. S1, S2 normal. There is no murmur. LUNGS: Reveal diffuse coarse rhonchi. Breath sounds equal. ABDOMEN: Soft. Bowel sounds are heard. EXTREMITIES: Intact. There is edema. No cyanosis or clubbing. SKIN: Without rash. NEUROLOGIC: Examination is unchanged. She is diffusely weak throughout. She does open her eyes on verbal stimuli. LABORATORY DATA: Reviewed. White count 8.9, hemoglobin 9.5, hematocrit 30.4, platelet count 353,000. Sodium 140, potassium 4.4, chloride 106, CO2 37, BUN and creatinine were 39 and 0.29. Microbiology was positive for E coli, Enterococcus in the urine back on January 16. It was treated. IMAGING: A chest x-ray on February 21 shows diffuse bilateral patchy infiltrates, right greater than left and essentially unchanged. CURRENT MEDICATIONS: Reviewed. The patient is on Tylenol, albuterol inhaler, Xanax, Cordarone, vitamin C, chlorhexidine, vitamin D3, Lovenox, Pepcid, [place] elixir, insulin, magnesium replacement, metoprolol, Narcan, MiraLAX, potassium protocol, prednisone, Seroquel, and zinc. ASSESSMENT: 1. Acute hypoxemic respiratory failure secondary to COVID-19 pneumonia/pneumonitis, with subsequent development of acute respiratory distress syndrome (ARDS), and failure to wean from mechanical ventilation. The patient was initially intubated on January 16, 2020. 2. Status post tracheostomy and PEG tube placement February 04, [address] Gomez for failure to wean from mechanical ventilation. 3. Acute right-sided pulmonary embolism, likely secondary to hypercoagulable state induced by the patient's COVID-19 infection. 4. Recurrent episodes of atrial fibrillation. 5. Remote history of deep venous thrombosis. 6. Acute kidney injury. 7. Hypercoagulable state. 8. Toxic/metabolic encephalopathy. 9. Chronic anemia. 10.Failure to wean from mechanical ventilation. PLAN: We added Xanax 0.5 four times a day. We have been able to wean her off propofol. Hopefully we can get her to a long-term acute care facility. She is being nourished with Vital high-protein at goal which is 50 mL an hour. Blood gases are reasonable. She remains on the pressure assist-control modality. No additional recommendations are made. Prognosis is guarded. She did develop some atrial fibrillation earlier today, but Cardiology did not want to do anything for it. Critical care time greater than 30 minutes. MMODL / IJN: [id number] /
[2020-02-22 11:55] LABS: Glucose,Whole Blood 157 mg/dL (75-99)
--- NOTE | 2020-02-22 14:20 | P.PN ---
Subjective Progress Note Date: 02/22/20 (varun charting seen at 1105) Principal diagnosis: shortness of breath Patient is a 79-year-old female history of DVT who presented to the emergency department with complaints of shortness of breath. She initially had a DVT and stopped her Xarelto as she was concerned about an interaction with the azithromycin she had been prescribed due to COVID 19. In the ER she underwent an extensive evaluation. She is on have a pulmonary embolism was started on a heparin drip, she was found have Covid 19 pneumonia and was started on steroids, zinc, vitamin C, and melatonin. Pulmonary was consulted. She was admitted to the selective care unit. She was found to be in atrial fibrillation which was new onset. Cardiology was consulted. She was started on low-dose metoprolol. On the evening of 01/09 she went and A. fib with RVR was started on Cardizem drip. On the morning of 01/10 she was seen by cardiology Cardizem drip was discontinued and she was started on metoprolol 25 mg twice a day. Her oxygen requirements were increasing throughout her hospital stay. Pulmonary determined she was not a candidate for aggressive ears are Covid symptoms that started 2 we eks prior. Case had been discussed with vascular who felt she was not a candidate for catheter directed TPA/EKOS. On 01/11 she was seen by pulmonary and started on Remedesivir. She was transferred to the ICU overnight on 01/11 due to progressive hypoxemia. She required aerosol as well as a nonrebreather. By the morning of 01/14 she had received 2 units of convalescent plasma. On the morning of 01/15 she was requiring BiPAP. She had a triple-lumen catheter placed. She failed BiPAP therapy and was subsequently intubated overnight on 01/15. After intubation she again went into A. fib with RVR and required a Cardizem drip for a short time but then converted to normal sinus rhythm. She did require levothyroxine secondary to hypotension. She again went into A. fib with RVR on 01/17 and secondary to her hypotension she was started on amiodarone. Levophed weaned off by 01/18 and she was able to be switched to oral amiodarone. During her ICU stay her heparin drip was transitioned to Lovenox subcutaneous. She still has not been able to wean from the ventilator. PEEP decreased 01/21. She has following commands but very weak on 01/22. On 01/23 her sedation was stopped and she did become agitated requiring resedation. Her HgB dropped for unknown reason on 01/24 and was felt to maybe be due to leaking from her around her subclavian cath. She was given 1 unit pRBC. Attempted to wean sedation but she became agitated. On 01/26 required increasing sedation and was placed back on levophed. She has had a prolonged hospital course. PEg and trach on 02/03. She remain mechanically ventilated and has been unable to wean and quickly develops tachypena and tachycardia. Medication adjustments are being made. Heart rate control has been difficult, currently off metoprolol due to labile BP but did required cardizem gtt for HR control on 02/19. Started on scheduled xanax and prn norco and able to be weaned off propofol. Trach bleeding on 02/20 and lovenox held X 1, toradol discontinued and this resolved. Patient seen and examined at bedside. Able to stay off propofol overnight, trach bleeding has stopped. Intermittently following commands. General: Ill-appearing, no distress, appears at stated age Derm: warm, dry, Head: atraumatic, normocephalic, symmetric Eyes: EOMI, no lid lag, anicteric sclera Mouth: no lip lesion, mucus membranes dry Cardiovascular: S1S2 reg, no murmur, positive posterior tibial pulse bilateral, Lungs: Coarse breath sounds bilateral, no rhonchi, no rales, no accessory muscle use, on vent, Trach in place Abdominal: soft, nontender to palpation, no guarding, no appreciable organomegaly Ext:+ gross muscle atrophy, diffuse anasarca (improving and greatest in r hand with negative doppler), no contractures Neuro: No gross muscle atrophy, no tremors noted, moving right fingers and bilateral toes Psych: eyes open. eliceo to follow commands to wiggle toes Covid 19 pneumonia with acute hypoxic respiratory failure, ARDS - Completed Remdesivir on 01/15 - s/p Dexamethasone day #17 days completed - Status post convalescent plasma 01/14 - Pulmonary recommendations appreciated - off sedation - plan for transition to [facility] Anxiety - on scheduled Xanax and seroquel - norco via PEG for pain control. Anemia, undetermined cause - 1 unit pRBC 01/25/2020, and 02/07 - Likely now with ICU induced anemia - Follow CBC Pulmonary embolus without right ventricular strain, history of prior DVT - Lovenox P. A fib with RVR - one episode of A fib 02/20 in he evening lasted 15 minutes resolved without intervention - intermittently requiring cardizem gtt, has been taking of metoprolol - lovenox, amio - now in NSR Entercoccus and E coli UTI, s/p treatment Thrombocytopenia, resolved KALYAN due to ATN with resultant metabolic acidosis and hyperphosphatemia, resolved Septic shock, resolved Hypokalemia, resolved DIffuse Anasarca, improving Trach site bleeding, resolved DVT prophylaxis: Lovenox for PE Discussed with: Nursing Anticipated discharge: undetermined Anticipated discharge place: [facility] A total of 25 minutes was spent on the care of this complex patient more than 50% of the time was spent in counseling and care coordination. Objective - Vital Signs Vital signs: Vital Signs Temp 99.0 F 02/22/20 12:00 Pulse 76 02/22/20 13:00 Resp 29 H 02/22/20 13:00 BP 135/72 02/22/20 13:00 Pulse Ox 96 02/22/20 13:00 Intake & Output 02/21/20 02/22/20 02/22/20 18:59 06:59 18:59 Intake Total 4852.601 3246.883 641 Output Total 835 745 560 Balance 546.277 447.883 81 Weight 86.5 kg Intake: IV 396 396 231 .9 @ KVO 360 360 210 pressure bags 36 36 21 Intake, IV Titration 95.277 26.883 Amount propofoL 1,000 mg In 95.277 26.883 Empty Bag 1 bag @ Titrate IV .Q0M [facility] Rx#: [id number] Tube Feeding 550 650 350 Other 340 120 60 Output: Urine 835 745 560 Other: Voiding Method Indwelling Catheter Indwelling Catheter Indwelling Catheter ABP, PAP, CO, CI - Last Documented Arterial Blood Pressure 133/62 - Labs CBC & Chem 7: 02/22/20 04:08 02/22/20 04:08 Labs: Abnormal Lab Results - Last 24 Hours (Table) 02/18/20 02/19/20 02/19/20 Range/Units 23:57 06:18 08:01 RBC (3.80-5.40) m/uL Hgb (11.4-16.0) gm/dL Hct (34.0-46.0) % RDW (11.5-15.5) % ABG pCO2 (35-45) mmHg ABG pO2 (83-108) mmHg ABG HCO3 (21-25) mmol/L ABG Total CO2 (19-24) mmol/L Carbon Dioxide (22-30) mmol/L BUN (7-17) mg/dL Creatinine (0.52-1.04) mg/dL Glucose (74-99) mg/dL POC Glucose (mg/dL) 116 H 154 H 123 H (75-99) mg/dL 02/19/20 02/19/20 02/19/20 Range/Units 12:29 12:41 17:28 RBC (3.80-5.40) m/uL Hgb (11.4-16.0) gm/dL Hct (34.0-46.0) % RDW (11.5-15.5) % ABG pCO2 (35-45) mmHg ABG pO2 (83-108) mmHg ABG HCO3 (21-25) mmol/L ABG Total CO2 (19-24) mmol/L Carbon Dioxide (22-30) mmol/L BUN (7-17) mg/dL Creatinine (0.52-1.04) mg/dL Glucose (74-99) mg/dL POC Glucose (mg/dL) 126 H 123 H 163 H (75-99) mg/dL 02/20/20 02/20/20 02/20/20 Range/Units 00:16 06:33 11:26 RBC (3.80-5.40) m/uL Hgb (11.4-16.0) gm/dL Hct (34.0-46.0) % RDW (11.5-15.5) % ABG pCO2 (35-45) mmHg ABG pO2 (83-108) mmHg ABG HCO3 (21-25) mmol/L ABG Total CO2 (19-24) mmol/L Carbon Dioxide (22-30) mmol/L BUN (7-17) mg/dL Creatinine (0.52-1.04) mg/dL Glucose (74-99) mg/dL POC Glucose (mg/dL) 110 H 113 H 156 H (75-99) mg/dL 02/20/20 02/20/20 02/21/20 Range/Units 18:10 23:41 05:41 RBC (3.80-5.40) m/uL Hgb (11.4-16.0) gm/dL Hct (34.0-46.0) % RDW (11.5-15.5) % ABG pCO2 (35-45) mmHg ABG pO2 (83-108) mmHg ABG HCO3 (21-25) mmol/L ABG Total CO2 (19-24) mmol/L Carbon Dioxide (22-30) mmol/L BUN (7-17) mg/dL Creatinine (0.52-1.04) mg/dL Glucose (74-99) mg/dL POC Glucose (mg/dL) 158 H 134 H 104 H (75-99) mg/dL 02/21/20 02/21/20 02/21/20 Range/Units 11:47 17:14 21:38 RBC (3.80-5.40) m/uL Hgb (11.4-16.0) gm/dL Hct (34.0-46.0) % RDW (11.5-15.5) % ABG pCO2 (35-45) mmHg ABG pO2 (83-108) mmHg ABG HCO3 (21-25) mmol/L ABG Total CO2 (19-24) mmol/L Carbon Dioxide (22-30) mmol/L BUN (7-17) mg/dL Creatinine (0.52-1.04) mg/dL Glucose (74-99) mg/dL POC Glucose (mg/dL) 146 H 168 H 130 H (75-99) mg/dL 02/21/20 02/22/20 02/22/20 Range/Units 23:55 04:08 04:08 RBC 3.05 L (3.80-5.40) m/uL Hgb 9.5 L (11.4-16.0) gm/dL Hct 30.4 L (34.0-46.0) % RDW 16.6 H (11.5-15.5) % ABG pCO2 (35-45) mmHg ABG pO2 (83-108) mmHg ABG HCO3 (21-25) mmol/L ABG Total CO2 (19-24) mmol/L Carbon Dioxide 37 H (22-30) mmol/L BUN 39 H (7-17) mg/dL Creatinine 0.29 L (0.52-1.04) mg/dL Glucose 111 H (74-99) mg/dL POC Glucose (mg/dL) 116 H (75-99) mg/dL 02/22/20 02/22/20 02/22/20 Range/Units 04:11 05:14 06:39 RBC (3.80-5.40) m/uL Hgb (11.4-16.0) gm/dL Hct (34.0-46.0) % RDW (11.5-15.5) % ABG pCO2 62 H (35-45) mmHg ABG pO2 78 L (83-108) mmHg ABG HCO3 35 H (21-25) mmol/L ABG Total CO2 37 H (19-24) mmol/L Carbon Dioxide (22-30) mmol/L BUN (7-17) mg/dL Creatinine (0.52-1.04) mg/dL Glucose (74-99) mg/dL POC Glucose (mg/dL) 118 H 119 H (75-99) mg/dL 02/22/20 Range/Units 11:42 RBC (3.80-5.40) m/uL Hgb (11.4-16.0) gm/dL Hct (34.0-46.0) % RDW (11.5-15.5) % ABG pCO2 (35-45) mmHg ABG pO2 (83-108) mmHg ABG HCO3 (21-25) mmol/L ABG Total CO2 (19-24) mmol/L Carbon Dioxide (22-30) mmol/L BUN (7-17) mg/dL Creatinine (0.52-1.04) mg/dL Glucose (74-99) mg/dL POC Glucose (mg/dL) 157 H (75-99) mg/dL
[2020-02-22 17:32] LABS: Glucose,Whole Blood 156 mg/dL (75-99)
[2020-02-22 21:01] LABS: Glucose,Whole Blood 120 mg/dL (75-99)
[2020-02-23 00:01] LABS: Glucose,Whole Blood 102 mg/dL (75-99)
[2020-02-23] MEDS: INSULIN ASPART (NovoLOG) 100 UNIT/ML VIAL SQ SCH ×5 (00:04→23:41)
[2020-02-23] MEDS: ALPRAZolam 0.5 MG TAB PO SCH ×4 (03:45→22:51)
[2020-02-23] MEDS: HYDROcodone/APAP 15 ML SOLUTION PO PRN (04:40)
[2020-02-23 04:56] LABS: ABG Base Excess 10.5 mmol/L; ABG HCO3 35 mmol/L (21-25); ABG Oxygen Saturation 96.4 % (94-97); ABG PCO2 50 mmHg (35-45); ABG PH 7.45 (7.35-7.45); ABG PO2 68 mmHg (83-108); ABG TCO2 36 mmol/L (19-24)
[2020-02-23 05:01] LABS: Glucose,Whole Blood 143 mg/dL (75-99)
[2020-02-23 05:23] LABS: Anisocytosis Slight; HCT 27.6 % (34.0-46.0); HGB 8.8 gm/dL (11.4-16.0); Hypochromasia Marked; MCH 31.4 pg (25.0-35.0); MCHC 31.9 g/dL (31.0-37.0); MCV 98.5 fL (80.0-100.0); Macrocytosis Slight; Platelet Count 232 k/uL (150-450); RDW 16.5 % (11.5-15.5); WBC 9.6 k/uL (3.8-10.6)
[2020-02-23 05:40] LABS: Allen Test Performed? no
[2020-02-23 05:52] LABS: ALT 48 U/L (4-34); AST 32 U/L (14-36); African American GFR (CKD) >90 (>60 ml/min/1.73 sqM); Albumin 2.2 g/dL (3.5-5.0); Alkaline Phosphatase 68 U/L (38-126); Anion Gap -2 mmol/L; Blood Urea Nitrogen 42 mg/dL (7-17); Calcium 8.7 mg/dL (8.4-10.2); Carbon Dioxide 35 mmol/L (22-30); Chloride 107 mmol/L (98-107); Glucose 131 mg/dL (74-99); Non-African American GFR(CKD) >90 (>60 ml/min/1.73 sqM); Potassium 4.2 mmol/L (3.5-5.1); Sodium 140 mmol/L (137-145); Total Bilirubin 0.3 mg/dL (0.2-1.3); Total Protein 4.4 g/dL (6.3-8.2)
[2020-02-23] MEDS ORDERED: PROTAMINE SULFATE 10 MG/ML 5 ML VIAL IV STA (06:43)
--- NOTE | 2020-02-23 06:43 | P.PN ---
Subjective Progress Note Date: 02/23/20 On 02/23/2020, this 79-year-old female patient is being seen in follow-up regarding her prolonged respiratory failure post COVID19 infection. The patient has been in the hospital since 01/09/2020. Back and the patient came in with bilateral pneumonia and since then she was diagnosed also having a pulmonary embolism. She was intubated and mechanically ventilated on 01/16/2020 and since then, the patient has been vent dependent. The patient failed to progress adequately and the patient was given a tracheostomy tube on 02/04/2020 in addition to a PEG tube. Her current CODE STATUS is DNR/DNI. She remains on a pressure control mode of ventilation with a inspiratory pressure of 22, I time of 0.8 seconds, rate of 26 with a FiO2 of 50% and a PEEP of 12. The patient remains on propofol still running at 30 mcg/kg per minute. The patient is receiving normal saline today to 30 mL an hour. The patient is receiving enteral feeding for support and she is on vital high protein at the rate of 50 mL an hour. Repeat COVID testing that was done on 02/19/2020 came back negative. The chest x-ray however continued to show bilateral diffuse opacities right more than left without any significant change compared to earlier chest x- rays. The patient has a PICC line in the right upper extremity. The patient also has a tracheostomy tube the tip of which is in adequate location. Noted the patient during the course of treatment was given anticoagulation and currently she is on therapeutic dose of Lovenox 90 mg subcu every 12 hours. During the course of the treatment, the patient was treated for Covid 19 infection. She remains on steroids and the patient is currently on 20 mg of prednisone on a daily basis The patient was also having issues with paroxysmal atrial fibrillation and currently she is on amiodarone and metoprolol. The patient also received Levemir insulin 10 units twice a day for blood sugar control in addition to his vascular coverage. In terms of her mentation, she wa s very slow to recover and she got to the point where she was following some simple commands but she remained extremely weak. She was having on and off agitation requiring sedation. During the course of treatment, hemoglobin dropped and the patient received a unit of packed RBC. She was given Xanax and when necessary [place] and she was able to wean herself off the propofol. Earlier this morning at around 4:30 AM, as the patient was undergoing a dressing change at a tracheostomy, the patient count is significant amount of bleeding from the tracheostomy stoma site. No blood was being suctioned from the tracheostomy and most of losing was external. Noted the patient was receiving Lovenox 90 mg subcu every 12 hours and her last dose was given to her yesterday. She is hemodynamically stable. She is arousable. She is awake. She is not having any hypotension. Awaiting follow-up chest x-ray from today. Meanwhile, I contacted the general surgeon to have a look at these issues as soon as possible. Correlation profile will be also sent. The patient has adequate urine output. His in order of 50 mL an hour. Ventilator settings is unchanged. Her blood gases from this morning pH of 7.44 with a pCO2 of 50 and pO2 of 68. Objective - Vital Signs Vital signs: Vital Signs Temp 98.2 F 02/23/20 04:00 Pulse 96 02/23/20 06:00 Resp 16 02/23/20 06:00 BP 163/107 02/23/20 06:00 Pulse Ox 92 L 02/23/20 06:00 Intake & Output 02/22/20 02/22/20 02/23/20 06:59 18:59 06:59 Intake Total 1896.902 9760 446 Output Total 745 1085 730 Balance 447.883 -19 -284 Weight 86.5 kg 86.3 kg Intake: IV 396 396 396 .9 @ KVO 360 360 360 pressure bags 36 36 36 Intake, IV Titration 26.883 Amount propofoL 1,000 mg In 26.883 Empty Bag 1 bag @ Titrate IV .Q0M [facility] Rx#: [id number] Tube Feeding 650 550 50 Other 120 120 Output: Urine 745 1085 730 Other: Voiding Method Indwelling Catheter Indwelling Catheter Indwelling Catheter ABP, PAP, CO, CI - Last Documented Arterial Blood Pressure 148/64 - Exam GENERAL EXAM: Alert, very pleasant 79-year-old female patient which is currently on a mechanical ventilator. Patient is a tracheostomy tube in place. The patient is being mechanically ventilated with a tracheostomy tube. She is awake. There is some oozing around the tracheostomy tube in addition to formation of clots. The patient is resting comfortably. No significant respiratory distress. She remains active the mechanical ventilator. Pulse ox is order of 94% above-mentioned ventilator setting. HEAD: Normocephalic. EYES: Normal reaction of pupils, equal size. NOSE: Clear with pink turbinates. THROAT: No erythema or exudates. NECK: No masses, no JVD. A subclavian catheter was established on the right side. The patient has a tracheostomy tube which is available on a tracheostomy tube and the patient is having bleeding around the tracheostomy stoma. on the right side.CHEST: No chest wall deformity. LUNGS: Equal air entry with scattered rhonchi., The patient is crackles lung bases bilaterally. CVS: S1 and S2 normal with no audible murmur, irregular rhythm. ABDOMEN: No hepatosplenomegaly, normal bowel sounds, no guarding or rigidity. PEG site site is clean for now. SPINE: No scoliosis or deformity SKIN: No rashes CENTRAL NERVOUS SYSTEM: the patient is sedated and she is not following any commands. She is unresponsive at this point in time. Currently, reactive to light. No facial asymmetry. Neck trachea motor weakness in all 4 extremities EXTREMITIES: There is there is improvement in peripheral edema bilaterally. No clubbing, no cyanosis. Peripheral pulses are intact. The patient has a PICC line in the right upper extremity. - Labs CBC & Chem 7: 02/23/20 05:00 02/23/20 05:00 Labs: Abnormal Lab Results - Last 24 Hours (Table) 02/18/20 02/19/20 02/19/20 Range/Units 23:57 06:18 08:01 RBC (3.80-5.40) m/uL Hgb (11.4-16.0) gm/dL Hct (34.0-46.0) % RDW (11.5-15.5) % ABG pCO2 (35-45) mmHg ABG pO2 (83-108) mmHg ABG HCO3 (21-25) mmol/L ABG Total CO2 (19-24) mmol/L Carbon Dioxide (22-30) mmol/L BUN (7-17) mg/dL Creatinine (0.52-1.04) mg/dL Glucose (74-99) mg/dL POC Glucose (mg/dL) 116 H 154 H 123 H (75-99) mg/dL ALT (4-34) U/L Total Protein (6.3-8.2) g/dL Albumin (3.5-5.0) g/dL 02/19/20 02/19/20 02/19/20 Range/Units 12:29 12:41 17:28 RBC (3.80-5.40) m/uL Hgb (11.4-16.0) gm/dL Hct (34.0-46.0) % RDW (11.5-15.5) % ABG pCO2 (35-45) mmHg ABG pO2 (83-108) mmHg ABG HCO3 (21-25) mmol/L ABG Total CO2 (19-24) mmol/L Carbon Dioxide (22-30) mmol/L BUN (7-17) mg/dL Creatinine (0.52-1.04) mg/dL Glucose (74-99) mg/dL POC Glucose (mg/dL) 126 H 123 H 163 H (75-99) mg/dL ALT (4-34) U/L Total Protein (6.3-8.2) g/dL Albumin (3.5-5.0) g/dL 02/20/20 02/20/20 02/20/20 Range/Units 00:16 06:33 11:26 RBC (3.80-5.40) m/uL Hgb (11.4-16.0) gm/dL Hct (34.0-46.0) % RDW (11.5-15.5) % ABG pCO2 (35-45) mmHg ABG pO2 (83-108) mmHg ABG HCO3 (21-25) mmol/L ABG Total CO2 (19-24) mmol/L Carbon Dioxide (22-30) mmol/L BUN (7-17) mg/dL Creatinine (0.52-1.04) mg/dL Glucose (74-99) mg/dL POC Glucose (mg/dL) 110 H 113 H 156 H (75-99) mg/dL ALT (4-34) U/L Total Protein (6.3-8.2) g/dL Albumin (3.5-5.0) g/dL 02/20/20 02/20/20 02/21/20 Range/Units 18:10 23:41 05:41 RBC (3.80-5.40) m/uL Hgb (11.4-16.0) gm/dL Hct (34.0-46.0) % RDW (11.5-15.5) % ABG pCO2 (35-45) mmHg ABG pO2 (83-108) mmHg ABG HCO3 (21-25) mmol/L ABG Total CO2 (19-24) mmol/L Carbon Dioxide (22-30) mmol/L BUN (7-17) mg/dL Creatinine (0.52-1.04) mg/dL Glucose (74-99) mg/dL POC Glucose (mg/dL) 158 H 134 H 104 H (75-99) mg/dL ALT (4-34) U/L Total Protein (6.3-8.2) g/dL Albumin (3.5-5.0) g/dL 02/21/20 02/21/20 02/21/20 Range/Units 11:47 17:14 21:38 RBC (3.80-5.40) m/uL Hgb (11.4-16.0) gm/dL Hct (34.0-46.0) % RDW (11.5-15.5) % ABG pCO2 (35-45) mmHg ABG pO2 (83-108) mmHg ABG HCO3 (21-25) mmol/L ABG Total CO2 (19-24) mmol/L Carbon Dioxide (22-30) mmol/L BUN (7-17) mg/dL Creatinine (0.52-1.04) mg/dL Glucose (74-99) mg/dL POC Glucose (mg/dL) 146 H 168 H 130 H (75-99) mg/dL ALT (4-34) U/L Total Protein (6.3-8.2) g/dL Albumin (3.5-5.0) g/dL 02/21/20 02/22/20 02/22/20 Range/Units 23:55 04:11 06:39 RBC (3.80-5.40) m/uL Hgb (11.4-16.0) gm/dL Hct (34.0-46.0) % RDW (11.5-15.5) % ABG pCO2 (35-45) mmHg ABG pO2 (83-108) mmHg ABG HCO3 (21-25) mmol/L ABG Total CO2 (19-24) mmol/L Carbon Dioxide (22-30) mmol/L BUN (7-17) mg/dL Creatinine (0.52-1.04) mg/dL Glucose (74-99) mg/dL POC Glucose (mg/dL) 116 H 118 H 119 H (75-99) mg/dL ALT (4-34) U/L Total Protein (6.3-8.2) g/dL Albumin (3.5-5.0) g/dL 02/22/20 02/22/20 02/22/20 Range/Units 11:42 17:29 20:59 RBC (3.80-5.40) m/uL Hgb (11.4-16.0) gm/dL Hct (34.0-46.0) % RDW (11.5-15.5) % ABG pCO2 (35-45) mmHg ABG pO2 (83-108) mmHg ABG HCO3 (21-25) mmol/L ABG Total CO2 (19-24) mmol/L Carbon Dioxide (22-30) mmol/L BUN (7-17) mg/dL Creatinine (0.52-1.04) mg/dL Glucose (74-99) mg/dL POC Glucose (mg/dL) 157 H 156 H 120 H (75-99) mg/dL ALT (4-34) U/L Total Protein (6.3-8.2) g/dL Albumin (3.5-5.0) g/dL 02/22/20 02/23/20 02/23/20 Range/Units 23:59 04:55 04:59 RBC (3.80-5.40) m/uL Hgb (11.4-16.0) gm/dL Hct (34.0-46.0) % RDW (11.5-15.5) % ABG pCO2 50 H (35-45) mmHg ABG pO2 68 L (83-108) mmHg ABG HCO3 35 H (21-25) mmol/L ABG Total CO2 36 H (19-24) mmol/L Carbon Dioxide (22-30) mmol/L BUN (7-17) mg/dL Creatinine (0.52-1.04) mg/dL Glucose (74-99) mg/dL POC Glucose (mg/dL) 102 H 143 H (75-99) mg/dL ALT (4-34) U/L Total Protein (6.3-8.2) g/dL Albumin (3.5-5.0) g/dL 02/23/20 02/23/20 Range/Units 05:00 05:00 RBC 2.80 L (3.80-5.40) m/uL Hgb 8.8 L (11.4-16.0) gm/dL Hct 27.6 L (34.0-46.0) % RDW 16.5 H (11.5-15.5) % ABG pCO2 (35-45) mmHg ABG pO2 (83-108) mmHg ABG HCO3 (21-25) mmol/L ABG Total CO2 (19-24) mmol/L Carbon Dioxide 35 H (22-30) mmol/L BUN 42 H (7-17) mg/dL Creatinine 0.25 L (0.52-1.04) mg/dL Glucose 131 H (74-99) mg/dL POC Glucose (mg/dL) (75-99) mg/dL ALT 48 H (4-34) U/L Total Protein 4.4 L (6.3-8.2) g/dL Albumin 2.2 L (3.5-5.0) g/dL Assessment and Plan Plan: 1 acute hypoxic respiratory failure predominantly secondary to Covid 19 related pneumonia and there is also some contribution to her hypoxemia because of the pulmonary embolism. The predominant factor contributing to respiratory failure is Covid 19 related pneumonia as the patient developed acute lung injury/ARDS post pneumonia. The patient has been on mechanical ventilator and ultimately the patient required tracheostomy tube insertion for vent support and a tracheostomy had this morning, the patient encountered bleeding around the tracheostomy stoma. Note that this is further exacerbated by the fact that the patient is taken anticoagulation with Lovenox at a therapeutic dose of 90 mg subcu every 12 hours. Gen. surgery was informed and the patient will be evaluated as soon as possible by general surgery regarding this bleeding. Evaluation will be held for now. 2 acute right-sided pulmonary embolism, probably related to Covid 19 related hypercoagulability.The patient is currently on Lovenox therapeutic dose, 90 mg subcu every 12 hours. 3 Covid 19 related pneumonia, with secondary ARDS , Subsequent cognitive testing that was done 02/19/2020 came back negative. 4 paroxysmal atrial fibrillation with rapid response. The patient is on Metoprolol and amiodarone. Patient is already and anticoagulation. she is on therapeutic dose of Lovenox 90 mg every 12 hours. 5 hypotension, recovered, continues to have labile blood pressure, and the patient received daily doses of Lasix 40 mg. Currently she is normotensive. 6 remote history of DVT and the patient was taken Xarelto on outpatient basis 7 hypertension 8 acute kidney injury, recovered 9 Chronic anemia, multifactorial. 10 altered mentation, recovered and the patient is receiving Seroquel and Xanax and she is off propofol for now plan Stop anticoagulation with Lovenox Check coagulation profile Try reversing anticoagulation by protamine regarding the bleeding continue ventilator support ,with a pressure control mode of ventilation and the patient will be on a pressure control of 22, PEEP of 12, FiO2 of 60% and a rate of 26. enteral feeding for nutritional support. The patient is doing vital high protein at the rate of 50 mL an hour Completed treatment for COVID 19 and the repeat study came back negative for COVID and the patient receivedf a total of 10 days course of Decadron 6 mg , completed the course of Remdesivir per protocol in addition to the rest of the supplements including vitamin C, vitamin D, melatonin, Pepcid and zinc. The patient received a unit of convalescent plasma. The patient is currently on Prednisone 20 mg daily Cardiac rhythm is atrial fibrillation /sinus and the patient is on Metoprolol and amiodarone. Currently she is in normal sinus rhythm. critically care evaluation was done and more than 30 minutes. Time with Patient: Greater than 30
[2020-02-23] MEDS: ALBUTEROL HFA INHALER INHALATION SCH ×4 (07:20→20:31)
[2020-02-23] MEDS: CHLORHEXIDINE GLUCONATE 15 ML CUP MUCOUS MEM SCH ×2 (08:04→22:51)
[2020-02-23] MEDS: AMIODARONE 200 MG TAB PO SCH (08:04)
[2020-02-23] MEDS: predniSONE 20 MG TAB PO SCH (08:04)
[2020-02-23] MEDS: ASCORBIC ACID 500 MG TAB PO SCH (08:04)
[2020-02-23] MEDS: FAMOTIDINE 20 MG TAB PO SCH (08:05)
[2020-02-23] MEDS: METOPROLOL TARTRATE 25 MG TAB PO SCH ×2 (08:06→22:51)
[2020-02-23] MEDS: ZINC SULFATE 220 MG CAP PO SCH (08:07)
[2020-02-23] MEDS: CHOLECALCIFEROL 1,000 UNIT TAB PO SCH (08:07)
[2020-02-23] MEDS: QUEtiapine 100 MG TAB PO SCH ×3 (08:08→22:51)
--- NOTE | 2020-02-23 08:19 | XR ---
EXAMINATION TYPE: XR chest 1V portable DATE OF EXAM: 02/23/2020 CLINICAL HISTORY: Difficulty breathing progress study. Blood leaking from trachea. Possible aspirati on. TECHNIQUE: Single AP portable semiupright view of the chest is obtained. COMPARISON: Chest x-ray from one day earlier and older studies. FINDINGS:Stable tracheostomy tube and right-sided PICC line. Cardiac silhouette size stable and upper limits of normal with atherosclerotic and ectatic aortic kno b. Persistent multifocal right greater than left bilateral airspace opacities on background chronic p arenchymal change. Stable Probable tiny bilateral pleural effusions. Degenerative change bilateral gl enohumeral joints. IMPRESSION: Persistent right greater than left bilateral multifocal infiltrates and tiny bilateral pl eural effusions on background chronic change consistent with covid -19 infection. No significant cook ge from most recent x-ray.
[2020-02-23] MEDS ORDERED: amLODIPine 5 MG TAB PO SCH (09:00)
[2020-02-23] MEDS: INSULIN DETEMIR (LEVEMIR) 100 UNIT/ML SYR SQ SCH ×2 (11:43→22:51)
[2020-02-23 12:51] LABS: Glucose,Whole Blood 200 mg/dL (75-99)
[2020-02-23 12:51] LABS: Glucose,Whole Blood 204 mg/dL (75-99)
--- NOTE | 2020-02-23 13:55 | P.PN ---
Progress Note - Text Progress Note Date: 02/23/20 The patient was receiving 90 mg of Lovenox twice a day. She developed bleeding at her tracheostomy site. The Lovenox has been stopped. She does have some large clots the trach site. On exam her trachea site was expected. There is appears to be no evidence of any active bleeding at this point. Patient will have her Lovenox held. Her bleeding is most likely due to and coagulation. She'll be closely observed.
--- NOTE | 2020-02-23 14:20 | P.PN ---
Subjective Progress Note Date: 02/23/20 Principal diagnosis: Paroxysmal atrial fibrillation This is a 79-year-old female patient was admitted to the hospital with COVID-19 infection with a pneumonia as well as pulmonary embolism. We consulted to see the patient because of atrial fibrillation. The patient has been converted to normal sinus mechanism and she has been maintaining normal sinus mechanism. She is on anticoagulation with Lovenox. The blood pressure has been marginally low and because of.I'm going to decrease the dose of Norvasc to 2.5 mg by mouth daily. Objective - Vital Signs Vital signs: Vital Signs Temp 97.6 F 02/23/20 12:00 Pulse 66 02/23/20 12:00 Resp 29 H 02/23/20 12:00 BP 91/49 02/23/20 12:00 Pulse Ox 98 02/23/20 12:00 Intake & Output 02/22/20 02/23/20 02/23/20 18:59 06:59 18:59 Intake Total 1066 446 998 Output Total 1085 730 220 Balance -19 -284 778 Weight 86.3 kg 86.3 kg Intake: IV 396 396 638 .9 @ KVO 360 360 620 pressure bags 36 36 18 Tube Feeding 550 50 300 Other 120 60 Output: Urine 1085 730 220 Other: Voiding Method Indwelling Catheter Indwelling Catheter Indwelling Catheter ABP, PAP, CO, CI - Last Documented Arterial Blood Pressure 96/42 - Constitutional General appearance: Present: no acute distress - Labs CBC & Chem 7: 02/23/20 05:00 02/23/20 05:00 Labs: Abnormal Lab Results - Last 24 Hours (Table) 02/22/20 02/22/20 02/22/20 Range/Units 17:29 20:59 23:59 RBC (3.80-5.40) m/uL Hgb (11.4-16.0) gm/dL Hct (34.0-46.0) % RDW (11.5-15.5) % ABG pCO2 (35-45) mmHg ABG pO2 (83-108) mmHg ABG HCO3 (21-25) mmol/L ABG Total CO2 (19-24) mmol/L Carbon Dioxide (22-30) mmol/L BUN (7-17) mg/dL Creatinine (0.52-1.04) mg/dL Glucose (74-99) mg/dL POC Glucose (mg/dL) 156 H 120 H 102 H (75-99) mg/dL ALT (4-34) U/L Total Protein (6.3-8.2) g/dL Albumin (3.5-5.0) g/dL 02/23/20 02/23/20 02/23/20 Range/Units 04:55 04:59 05:00 RBC 2.80 L (3.80-5.40) m/uL Hgb 8.8 L (11.4-16.0) gm/dL Hct 27.6 L (34.0-46.0) % RDW 16.5 H (11.5-15.5) % ABG pCO2 50 H (35-45) mmHg ABG pO2 68 L (83-108) mmHg ABG HCO3 35 H (21-25) mmol/L ABG Total CO2 36 H (19-24) mmol/L Carbon Dioxide (22-30) mmol/L BUN (7-17) mg/dL Creatinine (0.52-1.04) mg/dL Glucose (74-99) mg/dL POC Glucose (mg/dL) 143 H (75-99) mg/dL ALT (4-34) U/L Total Protein (6.3-8.2) g/dL Albumin (3.5-5.0) g/dL 02/23/20 02/23/20 02/23/20 Range/Units 05:00 12:47 12:48 RBC (3.80-5.40) m/uL Hgb (11.4-16.0) gm/dL Hct (34.0-46.0) % RDW (11.5-15.5) % ABG pCO2 (35-45) mmHg ABG pO2 (83-108) mmHg ABG HCO3 (21-25) mmol/L ABG Total CO2 (19-24) mmol/L Carbon Dioxide 35 H (22-30) mmol/L BUN 42 H (7-17) mg/dL Creatinine 0.25 L (0.52-1.04) mg/dL Glucose 131 H (74-99) mg/dL POC Glucose (mg/dL) 200 H 204 H (75-99) mg/dL ALT 48 H (4-34) U/L Total Protein 4.4 L (6.3-8.2) g/dL Albumin 2.2 L (3.5-5.0) g/dL Assessment and Plan Assessment: Assessment #1 COVID-19 infection #2 pneumonia secondary to the above #3 pulmonary embolism #4 paroxysmal atrial fibrillation Plan #1 continue the current medical regimen #2 decrease the dose of amlodipine #3 follow-up with the patient
[2020-02-23 17:51] LABS: Glucose,Whole Blood 155 mg/dL (75-99)
--- NOTE | 2020-02-23 19:46 | P.PN ---
Subjective Progress Note Date: 02/23/20 (delayed charting seen at 1215) Principal diagnosis: shortness of breath Patient is a 79-year-old female history of DVT who presented to the emergency department with complaints of shortness of breath. She initially had a DVT and stopped her Xarelto as she was concerned about an interaction with the azithromycin she had been prescribed due to COVID 19. In the ER she underwent an extensive evaluation. She is on have a pulmonary embolism was started on a heparin drip, she was found have Covid 19 pneumonia and was started on steroids, zinc, vitamin C, and melatonin. Pulmonary was consulted. She was admitted to the selective care unit. She was found to be in atrial fibrillation which was new onset. Cardiology was consulted. She was started on low-dose metoprolol. On the evening of 01/09 she went and A. fib with RVR was started on Cardizem drip. On the morning of 01/10 she was seen by cardiology Cardizem drip was discontinued and she was started on metoprolol 25 mg twice a day. Her oxygen requirements were increasing throughout her hospital stay. Pulmonary determined she was not a candidate for aggressive ears are Covid symptoms that started 2 w eeks prior. Case had been discussed with vascular who felt she was not a candidate for catheter directed TPA/EKOS. On 01/11 she was seen by pulmonary and started on Remedesivir. She was transferred to the ICU overnight on 01/11 due to progressive hypoxemia. She required aerosol as well as a nonrebreather. By the morning of 01/14 she had received 2 units of convalescent plasma. On the morning of 01/15 she was requiring BiPAP. She had a triple-lumen catheter placed. She failed BiPAP therapy and was subsequently intubated overnight on 01/15. After intubation she again went into A. fib with RVR and required a Cardizem drip for a short time but then converted to normal sinus rhythm. She did require levothyroxine secondary to hypotension. She again went into A. fib with RVR on 01/17 and secondary to her hypotension she was started on amiodarone. Levophed weaned off by 01/18 and she was able to be switched to oral amiodarone. During her ICU stay her heparin drip was transitioned to Lovenox subcutaneous. She still has not been able to wean from the ventilator. PEEP decreased 01/21. She has following commands but very weak on 01/22. On 01/23 her sedation was stopped and she did become agitated requiring resedation. Her HgB dropped for unknown reason on 01/24 and was felt to maybe be due to leaking from her around her subclavian cath. She was given 1 unit pRBC. Attempted to wean sedation but she became agitated. On 01/26 required increasing sedation and was placed back on levophed. She has had a prolonged hospital course. PEg and trach on 02/03. She remain mechanically ventilated and has been unable to wean and quickly develops tachypena and tachycardia. Medication adjustments are being made. Heart rate control has been difficult, currently off metoprolol due to labile BP but did required cardizem gtt for HR control on 02/19. Started on scheduled xanax and prn norco and able to be weaned off propofol. Trach bleeding on 02/20 and lovenox held X 1, toradol discontinued and this resolved. 02/22 recurrent trach bleeding, lovenox stopped, surgery contacted no additional intervention Patient seen and examined at bedside. Sedated, appears comfortable. General: Ill-appearing, no distress, appears at stated age Derm: warm, dry, Head: atraumatic, normocephalic, symmetric Eyes: EOMI, no lid lag, anicteric sclera Mouth: no lip lesion, mucus membranes dry Cardiovascular: S1S2 reg, no murmur, positive posterior tibial pulse bilateral, Lungs: Coarse breath sounds bilateral, no rhonchi, no rales, no accessory muscle use, on vent, Trach in place with blood soaked dressings. Abdominal: soft, nontender to palpation, no guarding, no appreciable organomegaly Ext:+ gross muscle atrophy, diffuse anasarca (improving and greatest in r hand with negative doppler), no contractures Neuro: No gross muscle atrophy, no tremors noted Psych: eyes closed, awakes to touch Trach bleeding - hold lovenox - surgery recs Covid 19 pneumonia with acute hypoxic respiratory failure, ARDS - Completed Remdesivir on 01/15 - s/p Dexamethasone day #17 days completed - Status post convalescent plasma 01/14 - Pulmonary recommendations appreciated - off sedation - plan for transition to LTACH Anxiety - on scheduled Xanax and seroquel - norco via PEG for pain control. Anemia, undetermined cause - 1 unit pRBC 01/25/2020, and 02/07 - Likely now with ICU induced anemia - Follow CBC Pulmonary embolus without right ventricular strain, history of prior DVT - Lovenox on hold due to trach bleeding P. A fib with RVR - one episode of A fib 02/20 in he evening lasted 15 minutes resolved without intervention - low dose metoprolol - lovenox, amio - now in NSR Entercoccus and E coli UTI, s/p treatment Thrombocytopenia, resolved KALYAN due to ATN with resultant metabolic acidosis and hyperphosphatemia, resolved Septic shock, resolved Hypokalemia, resolved DIffuse Anasarca, improving Trach site bleeding, resolved DVT prophylaxis: Lovenox for PE Discussed with: Nursing Anticipated discharge: [address] A total of 25 minutes was spent on the care of this complex patient more than 50% of the time was spent in counseling and care coordination. Objective - Vital Signs Vital signs: Vital Signs Temp 97.6 F 02/23/20 12:00 Pulse 67 02/23/20 14:00 Resp 27 H 02/23/20 14:00 BP 91/49 02/23/20 12:00 Pulse Ox 97 02/23/20 14:00 Intake & Output 02/22/20 02/23/20 02/23/20 18:59 06:59 18:59 Intake Total 5200 606 9804 Output Total 1085 730 220 Balance -19 -284 944 Weight 86.3 kg 86.3 kg Intake: IV 396 396 704 .9 @ KVO 360 360 680 pressure bags 36 36 24 Tube Feeding 550 50 400 Other 120 60 Output: Urine 1085 730 220 Other: Voiding Method Indwelling Catheter Indwelling Catheter Indwelling Catheter ABP, PAP, CO, CI - Last Documented Arterial Blood Pressure 109/45 - Labs CBC & Chem 7: 02/23/20 05:00 02/23/20 05:00 Labs: Abnormal Lab Results - Last 24 Hours (Table) 02/22/20 02/22/20 02/22/20 Range/Units 17:29 20:59 23:59 RBC (3.80-5.40) m/uL Hgb (11.4-16.0) gm/dL Hct (34.0-46.0) % RDW (11.5-15.5) % ABG pCO2 (35-45) mmHg ABG pO2 (83-108) mmHg ABG HCO3 (21-25) mmol/L ABG Total CO2 (19-24) mmol/L Carbon Dioxide (22-30) mmol/L BUN (7-17) mg/dL Creatinine (0.52-1.04) mg/dL Glucose (74-99) mg/dL POC Glucose (mg/dL) 156 H 120 H 102 H (75-99) mg/dL ALT (4-34) U/L Total Protein (6.3-8.2) g/dL Albumin (3.5-5.0) g/dL 02/23/20 02/23/20 02/23/20 Range/Units 04:55 04:59 05:00 RBC 2.80 L (3.80-5.40) m/uL Hgb 8.8 L (11.4-16.0) gm/dL Hct 27.6 L (34.0-46.0) % RDW 16.5 H (11.5-15.5) % ABG pCO2 50 H (35-45) mmHg ABG pO2 68 L (83-108) mmHg ABG HCO3 35 H (21-25) mmol/L ABG Total CO2 36 H (19-24) mmol/L Carbon Dioxide (22-30) mmol/L BUN (7-17) mg/dL Creatinine (0.52-1.04) mg/dL Glucose (74-99) mg/dL POC Glucose (mg/dL) 143 H (75-99) mg/dL ALT (4-34) U/L Total Protein (6.3-8.2) g/dL Albumin (3.5-5.0) g/dL 02/23/20 02/23/20 02/23/20 Range/Units 05:00 12:47 12:48 RBC (3.80-5.40) m/uL Hgb (11.4-16.0) gm/dL Hct (34.0-46.0) % RDW (11.5-15.5) % ABG pCO2 (35-45) mmHg ABG pO2 (83-108) mmHg ABG HCO3 (21-25) mmol/L ABG Total CO2 (19-24) mmol/L Carbon Dioxide 35 H (22-30) mmol/L BUN 42 H (7-17) mg/dL Creatinine 0.25 L (0.52-1.04) mg/dL Glucose 131 H (74-99) mg/dL POC Glucose (mg/dL) 200 H 204 H (75-99) mg/dL ALT 48 H (4-34) U/L Total Protein 4.4 L (6.3-8.2) g/dL Albumin 2.2 L (3.5-5.0) g/dL
[2020-02-23] MEDS ORDERED: SODIUM CHLORIDE 0.9% 1,000 ML IV ONE (20:31)
[2020-02-23] MEDS: NOREPINEPHRINE 8 MG in SODIUM CHLORIDE 0.9% 250 ML IV SCH (22:50)
[2020-02-23 23:07] LABS: Glucose,Whole Blood 145 mg/dL (75-99)
[2020-02-24] MEDS: ALPRAZolam 0.5 MG TAB PO SCH ×4 (04:24→20:01)
[2020-02-24 05:06] LABS: ABG Base Excess 9.5 mmol/L; ABG HCO3 34 mmol/L (21-25); ABG Oxygen Saturation 98.4 % (94-97); ABG PCO2 50 mmHg (35-45); ABG PH 7.44 (7.35-7.45); ABG PO2 78 mmHg (83-108); ABG TCO2 35 mmol/L (19-24)
[2020-02-24 05:07] LABS: African American GFR (CKD) >90 (>60 ml/min/1.73 sqM); Anion Gap -1 mmol/L; Blood Urea Nitrogen 48 mg/dL (7-17); Calcium 8.5 mg/dL (8.4-10.2); Carbon Dioxide 34 mmol/L (22-30); Chloride 108 mmol/L (98-107); Glucose 153 mg/dL (74-99); Non-African American GFR(CKD) >90 (>60 ml/min/1.73 sqM); Potassium 4.3 mmol/L (3.5-5.1); Sodium 141 mmol/L (137-145)
[2020-02-24 05:08] LABS: Anisocytosis Slight; HCT 20.8 % (34.0-46.0); Hypochromasia Marked; MCH 29.3 pg (25.0-35.0); MCHC 29.4 g/dL (31.0-37.0); MCV 99.4 fL (80.0-100.0); Macrocytosis Slight; Mean Platelet Volume 8.3; Platelet Count 204 k/uL (150-450); RBC 2.09 m/uL (3.80-5.40); RDW 16.7 % (11.5-15.5); WBC 9.3 k/uL (3.8-10.6)
[2020-02-24 05:15] LABS: Prothrombin Time 10.1 sec (9.0-12.0)
[2020-02-24 05:28] LABS: HGB 6.1 gm/dL (11.4-16.0)
[2020-02-24 05:37] LABS: Allen Test Performed? no
[2020-02-24 06:34] LABS: Glucose,Whole Blood 163 mg/dL (75-99)
[2020-02-24] MEDS: INSULIN ASPART (NovoLOG) 100 UNIT/ML VIAL SQ SCH ×3 (07:27→18:30)
--- NOTE | 2020-02-24 07:37 | P.PN ---
Subjective Progress Note Date: 02/24/20 Principal diagnosis: Paroxysmal atrial fibrillation This is a 79-year-old female patient was admitted to the hospital with COVID-19 infection with a pneumonia as well as pulmonary embolism. We consulted to see the patient because of atrial fibrillation. The patient was seen today February [id number]. The patient has been maintaining normal sinus mechanism which she was on Lovenox which was stopped yesterday because of bleeding around the trach tube. The hemoglobin this m orning is 6.1. The patient is in process of receiving one unit of packed RBC. She continues to be on amiodarone as well as metoprolol and she has been maintaining normal sinus mechanism. Objective - Vital Signs Vital signs: Vital Signs Temp 37.2 F L 02/24/20 04:00 Pulse 89 02/24/20 06:00 Resp 28 H 02/24/20 06:00 BP 119/61 02/24/20 06:00 Pulse Ox 96 02/24/20 06:00 Intake & Output 02/23/20 02/24/20 02/24/20 18:59 06:59 18:59 Intake Total 1526 2182.527 Output Total 410 885 Balance 1116 1297.527 Weight 86.3 kg Intake: IV 836 1429 .9 @ KVO 800 390 Sodium Chloride 0.9% 1, 1000 000 ml @ 999 mls/hr IV . Q1H1M [facility] Rx#:[id number] pressure bags 36 39 Intake, IV Titration 13.527 Amount Norepinephrine 8 mg In 13.527 Sodium Chloride 0.9% 250 ml @ 0.05 MCG/KG/MIN 8.35 mls/hr IV .Q24H [facility] Rx#: [id number] Tube Feeding 600 650 Other 90 90 Output: Urine 410 885 Other: Voiding Method Indwelling Catheter Indwelling Catheter ABP, PAP, CO, CI - Last Documented Arterial Blood Pressure 155/64 - Constitutional General appearance: Present: no acute distress - Labs CBC & Chem 7: 02/24/20 04:40 02/24/20 04:40 Labs: Abnormal Lab Results - Last 24 Hours (Table) 02/23/20 02/23/20 02/23/20 Range/Units 12:47 12:48 17:50 RBC (3.80-5.40) m/uL Hgb (11.4-16.0) gm/dL Hct (34.0-46.0) % MCHC (31.0-37.0) g/dL RDW (11.5-15.5) % ABG pCO2 (35-45) mmHg ABG pO2 (83-108) mmHg ABG HCO3 (21-25) mmol/L ABG Total CO2 (19-24) mmol/L ABG O2 Saturation (94-97) % Chloride (98-107) mmol/L Carbon Dioxide (22-30) mmol/L BUN (7-17) mg/dL Creatinine (0.52-1.04) mg/dL Glucose (74-99) mg/dL POC Glucose (mg/dL) 200 H 204 H 155 H (75-99) mg/dL 02/23/20 02/24/20 02/24/20 Range/Units 23:01 04:40 04:40 RBC 2.09 L (3.80-5.40) m/uL Hgb 6.1 L* D (11.4-16.0) gm/dL Hct 20.8 L (34.0-46.0) % MCHC 29.4 L (31.0-37.0) g/dL RDW 16.7 H (11.5-15.5) % ABG pCO2 (35-45) mmHg ABG pO2 (83-108) mmHg ABG HCO3 (21-25) mmol/L ABG Total CO2 (19-24) mmol/L ABG O2 Saturation (94-97) % Chloride 108 H (98-107) mmol/L Carbon Dioxide 34 H (22-30) mmol/L BUN 48 H (7-17) mg/dL Creatinine 0.31 L (0.52-1.04) mg/dL Glucose 153 H (74-99) mg/dL POC Glucose (mg/dL) 145 H (75-99) mg/dL 02/24/20 02/24/20 Range/Units 05:05 06:32 RBC (3.80-5.40) m/uL Hgb (11.4-16.0) gm/dL Hct (34.0-46.0) % MCHC (31.0-37.0) g/dL RDW (11.5-15.5) % ABG pCO2 50 H (35-45) mmHg ABG pO2 78 L (83-108) mmHg ABG HCO3 34 H (21-25) mmol/L ABG Total CO2 35 H (19-24) mmol/L ABG O2 Saturation 98.4 H (94-97) % Chloride (98-107) mmol/L Carbon Dioxide (22-30) mmol/L BUN (7-17) mg/dL Creatinine (0.52-1.04) mg/dL Glucose (74-99) mg/dL POC Glucose (mg/dL) 163 H (75-99) mg/dL Assessment and Plan Assessment: Assessment #1 COVID-19 infection #2 pneumonia secondary to the above #3 pulmonary embolism #4 paroxysmal atrial fibrillation #5 blood loss anemia Plan #1 continue the current medical regimen #2 continue holding anticoagulation #3 one unit of packed RBC #4 continue monitoring the hemoglobin
[2020-02-24] MEDS: ALBUTEROL HFA INHALER INHALATION SCH ×4 (07:59→19:27)
--- NOTE | 2020-02-24 08:24 | P.PN ---
Subjective Progress Note Date: 02/24/20 On 02/23/2020, this 79-year-old female patient is being seen in follow-up regarding her prolonged respiratory failure post COVID19 infection. The patient has been in the hospital since 01/09/2020. Back and the patient came in with bilateral pneumonia and since then she was diagnosed also having a pulmonary embolism. She was intubated and mechanically ventilated on 01/16/2020 and since then, the patient has been vent dependent. The patient failed to progress adequately and the patient was given a tracheostomy tube on 02/04/2020 in addition to a PEG tube. Her current CODE STATUS is DNR/DNI. She remains on a pressure control mode of ventilation with a inspiratory pressure of 22, I time of 0.8 seconds, rate of 26 with a FiO2 of 50% and a PEEP of 12. The patient remains on propofol still running at 30 mcg/kg per minute. The patient is receiving normal saline today to 30 mL an hour. The patient is receiving enteral feeding for support and she is on vital high protein at the rate of 50 mL an hour. Repeat COVID testing that was done on 02/19/2020 came back negative. The chest x-ray however continued to show bilateral diffuse opacities right more than left without any significant change compared to earlier chest x- rays. The patient has a PICC line in the right upper extremity. The patient also has a tracheostomy tube the tip of which is in adequate location. Noted the patient during the course of treatment was given anticoagulation and currently she is on therapeutic dose of Lovenox 90 mg subcu every 12 hours. During the course of the treatment, the patient was treated for Covid 19 infection. She remains on steroids and the patient is currently on 20 mg of prednisone on a daily basis The patient was also having issues with paroxysmal atrial fibrillation and currently she is on amiodarone and metoprolol. The patient also received Levemir insulin 10 units twice a day for blood sugar control in addition to his vascular coverage. In terms of her mentation, she wa s very slow to recover and she got to the point where she was following some simple commands but she remained extremely weak. She was having on and off agitation requiring sedation. During the course of treatment, hemoglobin dropped and the patient received a unit of packed RBC. She was given Xanax and when necessary [place] and she was able to wean herself off the propofol. Earlier this morning at around 4:30 AM, as the patient was undergoing a dressing change at a tracheostomy, the patient count is significant amount of bleeding from the tracheostomy stoma site. No blood was being suctioned from the tracheostomy and most of losing was external. Noted the patient was receiving Lovenox 90 mg subcu every 12 hours and her last dose was given to her yesterday. She is hemodynamically stable. She is arousable. She is awake. She is not having any hypotension. Awaiting follow-up chest x-ray from today. Meanwhile, I contacted the general surgeon to have a look at these issues as soon as possible. Correlation profile will be also sent. The patient has adequate urine output. His in order of 50 mL an hour. Ventilator settings is unchanged. Her blood gases from this morning pH of 7.44 with a pCO2 of 50 and pO2 of 68. 02/24/2020, I'm seeing this patient for a follow-up. Note that the patient had a extensive bleeding around her tracheostomy tube stoma yesterday. Lovenox was discontinued. The patient was given protamine. Neurosurgery consultation was obtained. Pressure was applied. Ultimately, the bleeding stopped spontaneously and she is not having any significant bleeding from the tracheostomy stoma. Meanwhile, the patient's hemoglobin dropped down to 6.1 and the patient will be transfused with a total of 2 units of packed RBC. Overnight, the patient also became hypotensive. She required pressors between 10 PM and 4 AM. Currently her blood pressure is 143/60 and she is hemodynamically stable. Her arterial line has been there since 01/17/2020 and this needs to be either taken out or replaced. Meanwhile, the patient remains on a pressure control mode of ventilation. She is at the rate of 26 with a pressure control of 22 and an inspiratory time of 0.8 with a PEEP of 12 and FiO2 of 50%. The blood gases from today showed a pH of 7.43 with a pCO2 of 49 and pO2 of 78. The chest x-ray from today is showing pulmonary infiltrates which is essentially stable from yesterday and the orotracheal tube is in a good location. She remains on Levemir insulin 10 units twice a day and insulin by scale coverage. The patient is on enteral feeding for nutritional support. Vital high protein. Neurologically, she is arousable and she follows some simple commands. She remains profoundly weak. Unable to raise her arms against gravity. She barely wiggle her toes. She is barely able to is her head off the bed. Ultimately plan is transfer this patient to select specialty Objective - Vital Signs Vital signs: Vital Signs Temp 37.2 F L 02/24/20 04:00 Pulse 89 02/24/20 06:00 Resp 28 H 02/24/20 06:00 BP 119/61 02/24/20 06:00 Pulse Ox 96 02/24/20 06:00 Intake & Output 02/23/20 02/24/20 02/24/20 18:59 06:59 18:59 Intake Total 1526 2182.527 Output Total 410 885 Balance 1116 1297.527 Weight 86.3 kg Intake: IV 836 1429 .9 @ KVO 800 390 Sodium Chloride 0.9% 1, 1000 000 ml @ 999 mls/hr IV . Q1H1M [facility] Rx#:[id number] pressure bags 36 39 Intake, IV Titration 13.527 Amount Norepinephrine 8 mg In 13.527 Sodium Chloride 0.9% 250 ml @ 0.05 MCG/KG/MIN 8.35 mls/hr IV .Q24H [facility] Rx#: [id number] Tube Feeding 600 650 Other 90 90 Output: Urine 410 885 Other: Voiding Method Indwelling Catheter Indwelling Catheter ABP, PAP, CO, CI - Last Documented Arterial Blood Pressure 155/64 - Exam GENERAL EXAM: Alert, very pleasant 79-year-old female patient which is currently on a mechanical ventilator. Patient is a tracheostomy tube in place. The patient is being mechanically ventilated with a tracheostomy tube. She is awake. There is no active bleeding from the tracheostomy stoma this point in time. HEAD: Normocephalic. EYES: Normal reaction of pupils, equal size. NOSE: Clear with pink turbinates. THROAT: No erythema or exudates. NECK: No masses, no JVD. A subclavian catheter was established on the right side. The patient has a tracheostomy tube , Bivona trach tube with a clean stoma .CHEST: No chest wall deformity. LUNGS: Equal air entry with scattered rhonchi., The patient is crackles lung b ases bilaterally. CVS: S1 and S2 normal with no audible murmur, irregular rhythm. ABDOMEN: No hepatosplenomegaly, normal bowel sounds, no guarding or rigidity. PEG site site is clean for now. SPINE: No scoliosis or deformity SKIN: No rashes CENTRAL NERVOUS SYSTEM: the patient is following simple commands. Currently, reactive to light. No facial asymmetry. Neck trachea motor weakness in all 4 extremities EXTREMITIES: There is there is improvement in peripheral edema bilaterally. No clubbing, no cyanosis. Peripheral pulses are intact. The patient has a PICC line in the right upper extremity. - Labs CBC & Chem 7: 02/24/20 04:40 02/24/20 04:40 Labs: Abnormal Lab Results - Last 24 Hours (Table) 02/23/20 02/23/20 02/23/20 Range/Units 12:47 12:48 17:50 RBC (3.80-5.40) m/uL Hgb (11.4-16.0) gm/dL Hct (34.0-46.0) % MCHC (31.0-37.0) g/dL RDW (11.5-15.5) % ABG pCO2 (35-45) mmHg ABG pO2 (83-108) mmHg ABG HCO3 (21-25) mmol/L ABG Total CO2 (19-24) mmol/L ABG O2 Saturation (94-97) % Chloride (98-107) mmol/L Carbon Dioxide (22-30) mmol/L BUN (7-17) mg/dL Creatinine (0.52-1.04) mg/dL Glucose (74-99) mg/dL POC Glucose (mg/dL) 200 H 204 H 155 H (75-99) mg/dL 02/23/20 02/24/20 02/24/20 Range/Units 23:01 04:40 04:40 RBC 2.09 L (3.80-5.40) m/uL Hgb 6.1 L* D (11.4-16.0) gm/dL Hct 20.8 L (34.0-46.0) % MCHC 29.4 L (31.0-37.0) g/dL RDW 16.7 H (11.5-15.5) % ABG pCO2 (35-45) mmHg ABG pO2 (83-108) mmHg ABG HCO3 (21-25) mmol/L ABG Total CO2 (19-24) mmol/L ABG O2 Saturation (94-97) % Chloride 108 H (98-107) mmol/L Carbon Dioxide 34 H (22-30) mmol/L BUN 48 H (7-17) mg/dL Creatinine 0.31 L (0.52-1.04) mg/dL Glucose 153 H (74-99) mg/dL POC Glucose (mg/dL) 145 H (75-99) mg/dL 02/24/20 02/24/20 Range/Units 05:05 06:32 RBC (3.80-5.40) m/uL Hgb (11.4-16.0) gm/dL Hct (34.0-46.0) % MCHC (31.0-37.0) g/dL RDW (11.5-15.5) % ABG pCO2 50 H (35-45) mmHg ABG pO2 78 L (83-108) mmHg ABG HCO3 34 H (21-25) mmol/L ABG Total CO2 35 H (19-24) mmol/L ABG O2 Saturation 98.4 H (94-97) % Chloride (98-107) mmol/L Carbon Dioxide (22-30) mmol/L BUN (7-17) mg/dL Creatinine (0.52-1.04) mg/dL Glucose (74-99) mg/dL POC Glucose (mg/dL) 163 H (75-99) mg/dL Assessment and Plan Plan: 1 acute hypoxic respiratory failure predominantly secondary to Covid 19 related pneumonia and there is also some contribution to her hypoxemia because of the pulmonary embolism. The predominant factor contributing to respiratory failure is Covid 19 related pneumonia as the patient developed acute lung injury/ARDS post pneumonia. The patient has been on mechanical ventilator and ultimately the patient required tracheostomy tube insertion for vent support and a tracheos keerthi . The patient was recovering well to yesterday when she had developed a bleed around the tracheostomy stoma. There was considerable amount of bleed with drop in hemoglobin down to 6.1. Based on all this, Lovenox was discontinued. The patient was given protamine. Surgical consultation was obtained. No surgical intervention was done and the patient stopped her bleeding spontaneously. She'll be given a total of 2 units of packed RBC. Her oxygenation is stable for now. Her PEEP will be weaned down to 10 and probably down to 8 at a later stage as long as the saturation remains above 90%. 2 acute right-sided pulmonary embolism, probably related to Covid 19 related hypercoagulability.The patient is currently off Lovenox therapeutic dose due to a bleed from the tracheostomy stoma. I will switch this to IV heparin for the next 24-48 hours and decide at a later stage. The patient can handle long-term anticoagulation with therapeutic doses. 3 Covid 19 related pneumonia, with secondary ARDS , Subsequent COVID testing that was done 02/19/2020 came back negative. 4 paroxysmal atrial fibrillation with rapid response. The patient is on Metoprolol and amiodarone. Patient is already and anticoagulation. The patient was on Lovenox and this had to be discontinued because of bleed around the tracheostomy stoma. I'm considering IV heparin for now and monitor the patient for bleed and monitor the hemoglobin. 5 hypotension, episodic, recurrent following the bleeding around the tracheostomy stoma and the patient briefly required pressors and currently she is off pressors again. 6 remote history of DVT and the patient was taken Xarelto on outpatient basis 7 hypertension 8 acute kidney injury, recovered 9 Chronic anemia, multifactorial. Acute drop in hemoglobin down to 6.1 due to a bleeding around the tracheostomy tube stoma. 10 altered mentation, recovered and the patient is receiving Seroquel and Xanax and she is off propofol for now plan Keep the patient off long-term anticoagulation Utilize IV heparin and she'll be started on the patient will be monitored for bleeding Give the patient total of 2 units of packed RBC Drop the PEEP down to 10 and later on down to 8 as long as she is able to maintain a saturation above 90% continue ventilator support ,with a pressure control mode of ventilation and the patient will be on a pressure control of 22, PEEP of 10, FiO2 of 50% and a rate of 26. enteral feeding for nutritional support. The patient is doing vital high protein at the rate of 50 mL an hour Completed treatment for COVID 19 and the repeat study came back negative for COVID and the patient receivedf a total of 10 days course of Decadron 6 mg , completed the course of Remdesivir per protocol in addition to the rest of the supplements including vitamin C, vitamin D, melatonin, Pepcid and zinc. The patient received a unit of convalescent plasma. The patient is currently on Prednisone 20 mg daily Cardiac rhythm is atrial fibrillation /sinus and the patient is on Metoprolol and amiodarone. Currently she is in normal sinus rhythm. The ultimate plan is transfer this patient to select specialty. For now were trying to stabilize her further. We'll start IV heparin. We'll monitor hemoglobin. Will watch for any signs of bleeding. We'll transfuse packed RBC. We will replace the arterial line. We'll continue to follow. critically care evaluation was done and more than 30 minutes. Time with Patient: Greater than 30 Time with Patient: Greater than 30
[2020-02-24] MEDS: CHOLECALCIFEROL 1,000 UNIT TAB PO SCH (08:50)
[2020-02-24] MEDS: ZINC SULFATE 220 MG CAP PO SCH (08:50)
[2020-02-24] MEDS: QUEtiapine 100 MG TAB PO SCH ×3 (08:50→23:35)
[2020-02-24] MEDS: METOPROLOL TARTRATE 25 MG TAB PO SCH ×2 (08:51→20:01)
[2020-02-24] MEDS: CHLORHEXIDINE GLUCONATE 15 ML CUP MUCOUS MEM SCH ×2 (08:51→20:01)
[2020-02-24] MEDS: INSULIN DETEMIR (LEVEMIR) 100 UNIT/ML SYR SQ SCH ×2 (08:51→20:01)
[2020-02-24] MEDS: ASCORBIC ACID 500 MG TAB PO SCH (08:51)
[2020-02-24] MEDS: amLODIPine 2.5 MG TAB PO SCH (08:51)
[2020-02-24] MEDS: predniSONE 20 MG TAB PO SCH (08:51)
[2020-02-24] MEDS: AMIODARONE 200 MG TAB PO SCH (08:51)
[2020-02-24] MEDS ORDERED: HEPARIN SODIUM,PORCINE 5,000 UNIT/ML 1 ML VIAL IV ONE (08:54)
[2020-02-24] MEDS ORDERED: HEPARIN SODIUM,PORCINE 5,000 UNIT/ML 1 ML VIAL IV PRN (08:54)
--- NOTE | 2020-02-24 09:01 | P.PCN ---
Date of Procedure: 02/24/20 Preoperative Diagnosis: COVID 19 pneumonia Postoperative Diagnosis: COVID 19 pneumonia Procedure(s) Performed: arterial line Anesthesia: local Surgeon: David Johnson Pathology: none sent Condition: critical Disposition: ICU Description of Procedure: arterial line insertion Indication: Hemodynamic monitoring. A time-out was completed verifying correct patient, procedure, site, positioning, and implant(s) or special equipment if applicable. Allens test was performed to ensure adequate perfusion. The patients right wrist was prepped and draped in sterile fashion. 1% Lidocaine was used to anesthetize the area. An 18G Arrow arterial line was introduced into the radial artery. The catheter was threaded over the guide wire and the needle was removed with appropriate pulsatile blood return. Blood loss was minimal. The catheter was then sutured in place to the skin and a sterile dressing applied. Perfusion to the extremity distal to the point of catheter insertion was checked and found to be adequate. The patient tolerated the procedure well and there were no complications.
[2020-02-24] MEDS: FAMOTIDINE 20 MG TAB PO SCH (09:06)
[2020-02-24] MEDS: HEPARIN SOD,PORK IN 0.45% NACL 25,000 UNIT in 0.45% NACL 1 250ML.BAG IV SCH (09:29)
[2020-02-24] MEDS ORDERED: FUROSEMIDE 10 MG/ML 4 ML VIAL IV STA (09:34)
--- NOTE | 2020-02-24 09:36 | P.PN ---
Subjective Progress Note Date: 02/24/20 Principal diagnosis: shortness of breath Patient is a 79-year-old female history of DVT who presented to the emergency department with complaints of shortness of breath. She initially had a DVT and stopped her Xarelto as she was concerned about an interaction with the azithromycin she had been prescribed due to COVID 19. In the ER she underwent an extensive evaluation. She is on have a pulmonary embolism was started on a heparin drip, she was found have Covid 19 pneumonia and was started on steroids, zinc, vitamin C, and melatonin. Pulmonary was consulted. She was admitted to the selective care unit. She was found to be in atrial fibrillation which was new onset. Cardiology was consulted. She was started on low-dose metoprolol. On the evening of 01/09 she went and A. fib with RVR was started on Cardizem drip. On the morning of 01/10 she was seen by cardiology Cardizem drip was discontinued and she was started on metoprolol 25 mg twice a day. Her oxygen requirements were increasing throughout her hospital stay. Pulmonary determined she was not a candidate for aggressive ears are Covid symptoms that started 2 weeks prior. Case had been discussed with vascular who felt she was not a candidate for catheter directed TPA/EKOS. On 01/11 she was seen by pulmonary and started on Remedesivir. She was transferred to the ICU overnight on 01/11 d ue to progressive hypoxemia. She required aerosol as well as a nonrebreather. By the morning of 01/14 she had received 2 units of convalescent plasma. On the morning of 01/15 she was requiring BiPAP. She had a triple-lumen catheter placed. She failed BiPAP therapy and was subsequently intubated overnight on 01/15. After intubation she again went into A. fib with RVR and required a Cardizem drip for a short time but then converted to normal sinus rhythm. She did require levothyroxine secondary to hypotension. She again went into A. fib with RVR on 01/17 and secondary to her hypotension she was started on amiodarone. Levophed weaned off by 01/18 and she was able to be switched to oral amiodarone. During her ICU stay her heparin drip was transitioned to Lovenox subcutaneous. She still has not been able to wean from the ventilator. PEEP decreased 01/21. She has following commands but very weak on 01/22. On 01/23 her sedation was stopped and she did become agitated requiring resedation. Her HgB dropped for unknown reason on 01/24 and was felt to maybe be due to leaking from her around her subclavian cath. She was given 1 unit pRBC. Attempted to wean sedation but she became agitated. On 01/26 required increasing sedation and was placed back on levophed. She has had a prolonged hospital course. PEg and trach on 02/03. She remain mechanically ventilated and has been unable to wean and quickly develops tachypena and tachycardia. Medication adjustments are being made. Heart rate control has been difficult, currently off metoprolol due to labile BP but did required cardizem gtt for HR control on 02/19. Started on scheduled xanax and prn norco and able to be weaned off propofol. Trach bleeding on 02/20 and lovenox held X 1, toradol discontinued and this resolved. 02/22 re current trach bleeding, lovenox stopped, surgery contacted no additional intervention, 02/23 PEEP decreased and trial of anticoagulation with heparin gtt as patient will require anticoagulation due to Pulmonary embolism. Patient seen and examined at bedside. Awake following commands intermittently. Nods no to pain General: Ill-appearing, no distress, appears at stated age Derm: warm, dry, Head: atraumatic, normocephalic, symmetric Eyes: EOMI, no lid lag, anicteric sclera Mouth: no lip lesion, mucus membranes dry Cardiovascular: S1S2 reg, no murmur, positive posterior tibial pulse bilateral, Lungs: Coarse breath sounds bilateral, no rhonchi, no rales, no accessory muscle use, on vent, Trach in place Abdominal: soft, nontender to palpation, no guarding, no appreciable organomegaly Ext:+ gross muscle atrophy, diffuse anasarca, no contractures Neuro: No gross muscle atrophy, no tremors noted Psych: eyes open, nod no to pain Trach bleeding recurrent on 02/22 - heparin gtt started on 02/23. - surgery recs Anemia, due to acute blood loss - 1 unit pRBC 01/25/2020, and 02/07 - worsening due to trach bleeding, 2 units ordered 02/23 - Likely component of ICU induced anemia - Follow CBC Covid 19 pneumonia with acute hypoxic respiratory failure, ARDS - Completed Remdesivir on 01/15 - s/p Dexamethasone day #17 days completed - Status post convalescent plasma 01/14 - Pulmonary recommendations appreciated - off sedation - plan for transition to LTACH once trach bleeding controlled and PEEP less than 10 (Council of 8 on 02/23) Anxiety - on scheduled Xanax and seroquel - norco via PEG for pain control. Pulmonary embolus without right ventricular strain, history of prior DVT - Lovenox on hold due to trach bleeding P. A fib with RVR - one episode of A fib 02/20 in he evening lasted 15 minutes resolved without intervention - low dose metoprolol - lovenox, amio - now in NSR Entercoccus and E coli UTI, s/p treatment Thrombocytopenia, resolved KALYAN due to ATN with resultant metabolic acidosis and hyperphosphatemia, resolved Septic shock, resolved Hypokalemia, resolved DIffuse Anasarca, improving DVT prophylaxis: Heparin gtt Discussed with: Nursing Anticipated discharge: 1-[address]: LTACH A total of 25 minutes was spent on the care of this complex patient more than 50% of the time was spent in counseling and care coordination. Objective - Vital Signs Vital signs: Vital Signs Temp 37.2 F L 02/24/20 04:00 Pulse 90 02/24/20 09:00 Resp 27 H 02/24/20 09:00 BP 121/58 02/24/20 09:00 Pulse Ox 93 L 02/24/20 09:00 Intake & Output 02/23/20 02/24/20 02/24/20 18:59 06:59 18:59 Intake Total 1526 2182.527 156 Output Total 410 885 325 Balance 1116 1297.527 -169 Weight 86.3 kg Intake: IV 836 1429 56 .9 @ KVO 800 390 50 Sodium Chloride 0.9% 1, 1000 000 ml @ 999 mls/hr IV . Q1H1M ONE Rx#:[id number] pressure bags 36 39 6 Intake, IV Titration 13.527 Amount Norepinephrine 8 mg In 13.527 Sodium Chloride 0.9% 250 ml @ 0.05 MCG/KG/MIN 8.35 mls/hr IV .Q24H [facility] Rx#: [id number] Tube Feeding 600 650 100 Other 90 90 Output: Urine 410 885 325 Other: Voiding Method Indwelling Catheter Indwelling Catheter ABP, PAP, CO, CI - Last Documented Arterial Blood Pressure 124/75 - Labs CBC & Chem 7: 02/24/20 04:40 02/24/20 04:40 Labs: Abnormal Lab Results - Last 24 Hours (Table) 02/23/20 02/23/20 02/23/20 Range/Units 12:47 12:48 17:50 RBC (3.80-5.40) m/uL Hgb (11.4-16.0) gm/dL Hct (34.0-46.0) % MCHC (31.0-37.0) g/dL RDW (11.5-15.5) % ABG pCO2 (35-45) mmHg ABG pO2 (83-108) mmHg ABG HCO3 (21-25) mmol/L ABG Total CO2 (19-24) mmol/L ABG O2 Saturation (94-97) % Chloride (98-107) mmol/L Carbon Dioxide (22-30) mmol/L BUN (7-17) mg/dL Creatinine (0.52-1.04) mg/dL Glucose (74-99) mg/dL POC Glucose (mg/dL) 200 H 204 H 155 H (75-99) mg/dL 02/23/20 02/24/20 02/24/20 Range/Units 23:01 04:40 04:40 RBC 2.09 L (3.80-5.40) m/uL Hgb 6.1 L* D (11.4-16.0) gm/dL Hct 20.8 L (34.0-46.0) % MCHC 29.4 L (31.0-37.0) g/dL RDW 16.7 H (11.5-15.5) % ABG pCO2 (35-45) mmHg ABG pO2 (83-108) mmHg ABG HCO3 (21-25) mmol/L ABG Total CO2 (19-24) mmol/L ABG O2 Saturation (94-97) % Chloride 108 H (98-107) mmol/L Carbon Dioxide 34 H (22-30) mmol/L BUN 48 H (7-17) mg/dL Creatinine 0.31 L (0.52-1.04) mg/dL Glucose 153 H (74-99) mg/dL POC Glucose (mg/dL) 145 H (75-99) mg/dL 02/24/20 02/24/20 Range/Units 05:05 06:32 RBC (3.80-5.40) m/uL Hgb (11.4-16.0) gm/dL Hct (34.0-46.0) % MCHC (31.0-37.0) g/dL RDW (11.5-15.5) % ABG pCO2 50 H (35-45) mmHg ABG pO2 78 L (83-108) mmHg ABG HCO3 34 H (21-25) mmol/L ABG Total CO2 35 H (19-24) mmol/L ABG O2 Saturation 98.4 H (94-97) % Chloride (98-107) mmol/L Carbon Dioxide (22-30) mmol/L BUN (7-17) mg/dL Creatinine (0.52-1.04) mg/dL Glucose (74-99) mg/dL POC Glucose (mg/dL) 163 H (75-99) mg/dL
[2020-02-24 10:23] LABS: Partial Thromboplastin Time 20.9 sec (22.0-30.0)
[2020-02-24 11:38] LABS: Glucose,Whole Blood 200 mg/dL (75-99)
--- NOTE | 2020-02-24 12:53 | P.PN ---
Progress Note - Text Progress Note Date: 02/24/20 Patient remained stable in the ICU. Her bleeding around the tracheostomy site is stopped since her high-dose Lovenox was discontinued. On exam her vital signs are stable. Trach site is clean. There is no incision any active bleeding. Patient will receive supportive care.
[2020-02-24 13:37] LABS: Glucose,Whole Blood 213 mg/dL (75-99)
[2020-02-24 18:20] LABS: Glucose,Whole Blood 152 mg/dL (75-99)
[2020-02-24] MEDS: ACETAMINOPHEN TAB 325 MG TAB PO PRN (21:26)
[2020-02-24 21:45] LABS: Anisocytosis Slight; Basophils # (A) 0.1 k/uL (0-0.2); Basophils % (A) 1 %; Eosinophils # (A) 0.1 k/uL (0-0.7); Eosinophils % (A) 1 %; HCT 27.7 % (34.0-46.0); Hypochromasia Marked; Lymphocytes # (A) 1.3 k/uL (1.0-4.8); Lymphocytes % (A) 12 %; MCH 30.4 pg (25.0-35.0); MCHC 30.4 g/dL (31.0-37.0); MCV 99.8 fL (80.0-100.0); Macrocytosis Slight; Mean Platelet Volume 9.6; Monocytes # (A) 0.5 k/uL (0-1.0); Monocytes % (A) 5 %; Neutrophils # (A) 8.8 k/uL (1.3-7.7); Neutrophils % (A) 80 %; Platelet Count 202 k/uL (150-450); Poikilocytosis Slight; RBC 2.77 m/uL (3.80-5.40); RDW 16.3 % (11.5-15.5); WBC 10.9 k/uL (3.8-10.6)
[2020-02-24 21:57] LABS: HGB 8.4 gm/dL (11.4-16.0)
[2020-02-25 00:12] LABS: Glucose,Whole Blood 127 mg/dL (75-99)
[2020-02-25] MEDS: INSULIN ASPART (NovoLOG) 100 UNIT/ML VIAL SQ SCH ×4 (00:32→18:19)
[2020-02-25] MEDS: ALPRAZolam 0.5 MG TAB PO SCH ×4 (02:00→21:49)
[2020-02-25] MEDS: NOREPINEPHRINE 8 MG in SODIUM CHLORIDE 0.9% 250 ML IV SCH (02:21)
[2020-02-25] MEDS: HYDROcodone/APAP 15 ML SOLUTION PO PRN ×2 (04:25→12:46)
[2020-02-25 04:48] LABS: Anisocytosis Slight; Basophils # (A) 0.1 k/uL (0-0.2); Basophils % (A) 1 %; Eosinophils # (A) 0.6 k/uL (0-0.7); Eosinophils % (A) 4 %; HCT 28.9 % (34.0-46.0); HGB 8.9 gm/dL (11.4-16.0); Hypochromasia Marked; Lymphocytes % (A) 15 %; MCH 30.6 pg (25.0-35.0); MCHC 30.7 g/dL (31.0-37.0); MCV 99.6 fL (80.0-100.0); Macrocytosis Slight; Mean Platelet Volume 9.2; Monocytes # (A) 0.7 k/uL (0-1.0); Monocytes % (A) 5 %; Neutrophils % (A) 75 %; Platelet Count 210 k/uL (150-450); Poikilocytosis Slight; RDW 16.5 % (11.5-15.5); WBC 13.5 k/uL (3.8-10.6)
[2020-02-25 05:44] LABS: ABG Base Excess 11.7 mmol/L; ABG HCO3 37 mmol/L (21-25); ABG PCO2 61 mmHg (35-45); ABG PH 7.39 (7.35-7.45); ABG PO2 74 mmHg (83-108); ABG TCO2 39 mmol/L (19-24); Allen Test Performed? Yes
[2020-02-25 05:44] LABS: Chloride 105 mmol/L (98-107)
[2020-02-25 05:47] LABS: African American GFR (CKD) >90 (>60 ml/min/1.73 sqM); Anion Gap -2 mmol/L; Blood Urea Nitrogen 48 mg/dL (7-17); Carbon Dioxide 38 mmol/L (22-30); Glucose 128 mg/dL (74-99); Non-African American GFR(CKD) >90 (>60 ml/min/1.73 sqM); Phosphorus 2.7 mg/dL (2.5-4.5); Potassium 4.3 mmol/L (3.5-5.1); Sodium 141 mmol/L (137-145)
[2020-02-25 05:55] LABS: Glucose,Whole Blood 150 mg/dL (75-99)
[2020-02-25] MEDS: FAMOTIDINE 20 MG TAB PO SCH (07:43)
[2020-02-25] MEDS: amLODIPine 2.5 MG TAB PO SCH (07:43)
[2020-02-25] MEDS: CHOLECALCIFEROL 1,000 UNIT TAB PO SCH (07:44)
[2020-02-25] MEDS: AMIODARONE 200 MG TAB PO SCH (07:44)
[2020-02-25] MEDS: CHLORHEXIDINE GLUCONATE 15 ML CUP MUCOUS MEM SCH ×2 (07:44→21:49)
[2020-02-25] MEDS: METOPROLOL TARTRATE 25 MG TAB PO SCH ×2 (07:44→21:49)
[2020-02-25] MEDS: predniSONE 20 MG TAB PO SCH (07:44)
[2020-02-25] MEDS: INSULIN DETEMIR (LEVEMIR) 100 UNIT/ML SYR SQ SCH ×2 (07:45→21:49)
[2020-02-25] MEDS: ZINC SULFATE 220 MG CAP PO SCH (07:45)
[2020-02-25] MEDS: ASCORBIC ACID 500 MG TAB PO SCH (07:45)
--- NOTE | 2020-02-25 07:46 | XR ---
EXAMINATION TYPE: XR chest 1V portable DATE OF EXAM: 02/25/2020 Comparison: 02/23/2020 Clinical History: 79-year-old female follow up, ICU Management Findings: Tracheostomy cannula remains in place. Leftward patient rotation ultrasound normal cardiac and medias tinal contours. Heart upper limits of normal in size. Diffuse interstitial and patchy airspace opacit y persists, right greater than left. Underlying small effusions not excluded. Right PICC tip not well seen, probably at the lower SVC level. Impression: Continued bilateral diffuse interstitial and patchy airspace disease, right greater than left. Possib le small effusions. No significant change
[2020-02-25] MEDS: ALBUTEROL HFA INHALER INHALATION SCH ×4 (07:54→20:20)
[2020-02-25] MEDS: HEPARIN SOD,PORK IN 0.45% NACL 25,000 UNIT in 0.45% NACL 1 250ML.BAG IV SCH (08:02)
[2020-02-25] MEDS: ACETAMINOPHEN TAB 325 MG TAB PO PRN (08:04)
[2020-02-25] MEDS: QUEtiapine 100 MG TAB PO SCH ×3 (09:14→22:15)
[2020-02-25 09:49] LABS: Appearance,Urine Clear (Clear); Bacteria,Urine Rare /hpf; Bilirubin,Urine Negative (Negative); Blood,Urine Moderate (Negative); Budding Yeast,Urine Occasional /hpf; Color,Urine Light Yellow; Glucose,Urine (UA) Negative (Negative); Ketones,Urine Negative (Negative); Leukocyte Esterase,Urine Moderate (Negative); Mucus,Urine Rare /hpf; Nitrite,Urine Negative (Negative); PH, Urine 5.5 (5.0-8.0); Protein,Urine Trace (Negative); RBC,Urine 58 /hpf (0-5); Specific Gravity,Urine 1.014 (1.001-1.035); Urobilinogen,Urine <2.0 mg/dL (<2.0); WBC,Urine 35 /hpf (0-5)
--- NOTE | 2020-02-25 11:05 | PN ---
PROGRESS NOTE Critical care time greater than 30 minutes. This is a patient who was admitted back on January 08. She came in with COVID-19 pneumonitis for acute hypoxemic respiratory failure. She also was diagnosed at that time as having a pulmonary embolism. She was intubated on 15 of January for respiratory failure and required mechanical ventilation since that time. Because of failure to progress from mechanical ventilation on February 03, she underwent a tracheostomy and PEG tube placement by Dr. Gomez. The patient is currently a DNR. We finally have been able to wean her off all sedatives. We did add some Xanax, which did seem to help. Currently, the patient is on the pressure assist-control with an inspiratory pressure of 22, inspiratory time of 0.8 seconds, FiO2 of 50%, PEEP of 8, rate of 26. Gases show pO2 of 74, pCO2 of 61 and a pH of 7.39. The patient is getting saline at KVO, heparin via weight based protocol, Vital high-protein at 50 with a goal of 50 mL an hour, has received 2 units of blood because of tracheal bleeding, and is going to be converted from heparin back to Lovenox. The plan is hopefully to get her discharged to a long- term acute care. When that will happen, I am not sure. Other than that, she has been reasonably stable. PHYSICAL EXAMINATION: VITAL SIGNS: Current vital signs are reviewed. Temperature is 99.9, heart rate 80, respiratory rate 32, blood pressure 164/64 and saturations are in the low 90s. GENERAL: Appears in no acute distress. HEENT: Examination is grossly unremarkable. NECK: Supple. There is a midline tracheostomy. No bleeding. No adenopathy or thyromegaly. Neck veins are flat. CARDIOVASCULAR: Examination reveals regular rhythm and rate. Heart rate 80. S1, S2 normal. No S3, S4, or murmur. LUNGS: Reveal coarse bilateral rhonchi. There are some bibasilar crackles. No wheezes. Breath sounds are diminished. ABDOMEN: Soft. PEG tube noted. Bowel sounds are noted. EXTREMITIES: Are intact. There is edema. Skin shows areas of ecchymoses. NEUROLOGIC: Examination is difficult to assess. She does move all 4 extremities. LAB DATA: Lab data is reviewed. White count 13.5, hemoglobin 8.9, hematocrit 28.9, platelet count 210,000. Blood gases show pO2 of 74, pCO2 of 61, and pH 7.39. PTT is 48. Sodium 141, potassium 4.3, chloride 105, CO2 of 38. BUN and creatinine were 48 and 0.26. Urine might be consistent with urinary tract infection. Microbiology was positive for E coli and Enterococcus faecalis in the urine from January 16. Blood cultures have all been negative. The patient had a chest x-ray on February 24. The chest x-ray shows the midline tracheostomy tube. The patient has persistent bilateral infiltrates, they are more right-sided than left-sided. CURRENT MEDICATIONS: Current medications are reviewed. The patient is on Tylenol, albuterol inhaler, Xanax, Cordarone, amlodipine, vitamin C, chlorhexidine, vitamin D3, Pepcid, heparin, [place] elixir, insulin, magnesium replacement, metoprolol, Narcan, potassium replacement, prednisone, Seroquel, and zinc. ASSESSMENT: 1. Acute hypoxemic respiratory failure secondary to COVID-19 pneumonia/pneumonitis, with subsequent development of acute respiratory distress syndrome (ARDS), and failure to wean from mechanical ventilation. The patient was initially intubated on January 16, 2020. 2. Status post tracheostomy and PEG tube placement February 04, [address] Gomez, for failure to wean from mechanical ventilation. 3. Acute right-sided pulmonary embolism, likely secondary to hypercoagulable state, induced by COVID-19 infection. 4. Recurrent episodes of atrial fibrillation. 5. Remote history of deep venous thrombosis. 6. Acute kidney injury. 7. Hypercoagulable state. 8. Toxic/metabolic encephalopathy. 9. Chronic anemia. 10.Failure to wean from mechanical ventilation. PLAN: Currently, the patient is on stable vent settings. The patient is on the pressure assist-control modality. The patient is getting Vital high-protein at 50, which is goal. The patient is going to be converted over to Lovenox. She received 2 units of blood from bleeding around the trach site. The bleeding has stopped. The patient's other medications include the saline at KVO. We will continue to follow. The plan is to get her discharged to a long-term acute care facility as soon as possible. No additional recommendations are made. Prognosis is guarded. Critical care time greater than 30 minutes. MMODL / IJN: [id number] /
--- NOTE | 2020-02-25 12:27 | P.DS ---
Providers Date of admission: 01/09/20 12:10 Expected date of discharge: 02/25/20 Attending physician: Alyssa Main DO Consults: 01/09/20 18:03 Consult Physician Routine Consulting Provider: Win Champion Consult Reason/Comments: covid Do you want consulting provider notified?: Yes 01/10/20 12:19 Consult Physician Routine Consulting Provider: Edward Jones Consult Reason/Comments: New onset atrial fibrillation Do you want consulting provider notified?: Yes 01/17/20 11:05 Consult Physician Routine Consulting Provider: Romero Rossi Consult Reason/Comments: Low urine output, KALYAN Do you want consulting provider notified?: Already Contacted 01/19/20 07:39 Consult Physician Routine Consulting Provider: John Hughes Consult Reason/Comments: a fib Do you want consulting provider notified?: Already Contacted 01/30/20 12:16 Consult Physician Routine Consulting Provider: Rory Gomez Consult Reason/Comments: trach and peg Do you want consulting provider notified?: Already Contacted 02/22/20 05:49 Consult Physician Routine Consulting Provider: Jaswant Gatica Consult Reason/Comments: afib rvr Do you want consulting provider notified?: Yes, Notify in am Primary care physician: Alex Moeller MD Hospital Course: Discharge Diagnosis: Trach bleeding recurrent on 02/22 - heparin gtt started on 02/23. Tolerated with no recurrence of bleeding, transitioned to Lovenox 30mg dialy. Anticipted resume full dose anticoagulation in 3-5 days Anemia, due to acute blood loss - 3 unit pRBC Leukocytosis, likely due to steroids and stress from bleeding trach site Covid 19 pneumonia with acute hypoxic respiratory failure, ARDS - Completed Remdesivir on 01/15 - s/p Dexamethasone day #17 days completed - Status post convalescent plasma 01/14 Anxiety Pulmonary embolus without right ventricular strain, history of prior DVT P. A fib with RVR Entercoccus and E coli UTI, s/p treatment Thrombocytopenia, resolved KALYAN due to ATN with resultant metabolic acidosis and hyperphosphatemia, resolved Septic shock, resolved Hypokalemia, resolved Diffuse Anasarca, improving Hospital Course: Patient is a 79-year-old female history of DVT who presented to the emergency department with complaints of shortness of breath. She initially had a DVT and stopped her Xarelto as she was concerned about an interaction with the azithromycin she had been prescribed due to COVID 19. In the ER she underwent an extensive evaluation. She was found have a pulmonary embolism was started on a heparin drip, she was found have Covid 19 pneumonia and was started on steroids, zinc, vitamin C, and melatonin. Pulmonary was consulted. She was admitted to the selective care unit. She was found to be in atrial fibrillation which was new onset. Cardiology was consulted. She was started on low-dose metoprolol. On the evening of 01/09 she went and A. fib with RVR was started on Cardizem drip. On the morning of 01/10 she was seen by cardiology Cardizem drip was discontinued and she was started on metoprolol 25 mg twice a day. Her oxygen requirements were increasing throughout her hospital stay. Case had been discussed with vascular who felt she was not a candidate for catheter directed TPA/EKOS. On 01/11 she was seen by pulmonary and started on Remedesivir. She was transferred to the ICU overnight on 01/11 due to progressive hypoxemia. She required aerosol as well as a nonrebreather. By the morning of 01/14 she had received 2 units of convalescent plasma. On the morning of 01/15 she was requ iring BiPAP. She had a triple-lumen catheter placed. She failed BiPAP therapy and was subsequently intubated overnight on 01/15. After intubation she again went into A. fib with RVR and required a Cardizem drip for a short time but then converted to normal sinus rhythm. She did require levothyroxine secondary to hypotension. She again went into A. fib with RVR on 01/17 and secondary to her hypotension she was started on amiodarone. Levophed weaned off by 01/18 and she was able to be switched to oral amiodarone. During her ICU stay her heparin drip was transitioned to Lovenox subcutaneous. She still has not been able to wean from the ventilator. PEEP decreased 01/21. She has following commands but very weak on 01/22. On 01/23 her sedation was stopped and she did become agitated requiring resedation. Her HgB dropped for unknown reason on 01/24 and was felt to maybe be due to leaking from her around her subclavian cath. She was given 1 unit pRBC. Attempted to wean sedation but she became agitated. On 01/26 required increasing sedation and was placed back on levophed. She has had a prolonged hospital course. PEg and trach on 02/03. She remain mechanically ventilated and has been unable to wean and quickly develops tachypena and tachycardia. Medication adjustments are being made. Heart rate control has been difficult, currently off metoprolol due to labile BP but did required cardizem gtt for HR control on 02/19. Started on scheduled xanax and prn norco and able to be weaned off propofol. Trach bleeding on 02/20 and lovenox held X 1, toradol discontinued and this resolved. 02/22 recurrent trach bleeding, lovenox stopped, surgery contacted no additional intervention, 02/23 PEEP decreased and trial of anticoagulation with heparin gtt as patient will require anticoagulat ion due to Pulmonary embolism. Recommend low dose Lovenox for 3-5 days and then full dose anticoagulation. She was determined stable for discharge to [facility] Patient seen and examined at bedside. Indicated that she is having some pain Vital signs reviewed and stable. General: Ill-appearing, no distress, appears at stated age Derm: warm, dry, Head: atraumatic, normocephalic, symmetric Eyes: EOMI, no lid lag, anicteric sclera Mouth: no lip lesion, mucus membranes dry Cardiovascular: S1S2 reg, no murmur, positive posterior tibial pulse bilateral, Lungs: Coarse breath sounds bilateral, no rhonchi, no rales, no accessory muscle use, on vent, Trach in place Abdominal: soft, nontender to palpation, no guarding, no appreciable organomegaly Ext:+ gross muscle atrophy, diffuse anasarca, no contractures Neuro: No gross muscle atrophy, no tremors noted Psych: eyes open, nod no to pain A total of 45 minutes of time were spent preparing this complex discharge summary . Patient Condition at Discharge: Stable Plan - Discharge Summary Discharge Rx Participant: No New Discharge Prescriptions: New Amiodarone [Cordarone] 200 mg PO DAILY tab predniSONE [Deltasone] 10 mg PO DAILY tab Insulin Detemir (Levemir) [Levemir] 10 unit SQ BID syr Metoprolol Tartrate [Lopressor] 25 mg PO BID tab Enoxaparin [Lovenox] 30 mg SQ DAILY syringe HYDROcodone/APAP [[place] Elixir 7.5-325Mg/15Ml] 15 ml PO Q6H PRN ml PRN Reason: Pain amLODIPine [Norvasc] 2.5 mg PO DAILY tab INSULIN ASPART (NovoLOG) [NovoLOG (formulary)] 0 unit SQ Q6H vial Zinc Sulfate [Orazinc] 220 mg PO DAILY cap Famotidine [Pepcid] 20 mg PO DAILY tab Chlorhexidine Gluconate [Peridex] 15 ml MUCOUS MEM BID ml QUEtiapine [SEROquel] 100 mg PO TID tab Acetaminophen Tab [Tylenol] 650 mg PO Q6HR PRN tab PRN Reason: Fever And/ Or Pain Albuterol Inhaler [Ventolin Hfa Inhaler] 2 puff INHALATION RT-QID puff Ascorbic Acid [Vitamin C] 1,000 mg PO DAILY #0 tab Cholecalciferol [Vitamin D3 (25 Mcg = 1000 Iu)] 1,000 unit PO DAILY tab ALPRAZolam [Xanax] 0.5 mg PO Q6H tab Discontinued Rivaroxaban [Xarelto] 20 mg PO DAILY amLODIPine [Norvasc] 5 mg PO DAILY Discharge Medication List ALPRAZolam [Xanax] 0.5 mg PO Q6H tab 02/25/20 [Rx] Acetaminophen Tab [Tylenol] 650 mg PO Q6HR PRN tab 02/25/20 [Rx] Albuterol Inhaler [Ventolin Hfa Inhaler] 2 puff INHALATION RT-QID puff 02/25/20 [Rx] Amiodarone [Cordarone] 200 mg PO DAILY tab 02/25/20 [Rx] Ascorbic Acid [Vitamin C] 1,000 mg PO DAILY #0 tab 02/25/20 [Rx] Chlorhexidine Gluconate [Peridex] 15 ml MUCOUS MEM BID ml 02/25/20 [Rx] Cholecalciferol [Vitamin D3 (25 Mcg = 1000 Iu)] 1,000 unit PO DAILY tab 02/25/20 [Rx] Enoxaparin [Lovenox] 30 mg SQ DAILY syringe 02/25/20 [Rx] Famotidine [Pepcid] 20 mg PO DAILY tab 02/25/20 [Rx] HYDROcodone/APAP [[place] Elixir 7.5-325Mg/15Ml] 15 ml PO Q6H PRN ml 02/25/20 [Rx] INSULIN ASPART (NovoLOG) [NovoLOG (formulary)] 0 unit SQ Q6H vial 02/25/20 [Rx] Insulin Detemir (Levemir) [Levemir] 10 unit SQ BID syr 02/25/20 [Rx] Metoprolol Tartrate [Lopressor] 25 mg PO BID tab 02/25/20 [Rx] QUEtiapine [SEROquel] 100 mg PO TID tab 02/25/20 [Rx] Zinc Sulfate [Orazinc] 220 mg PO DAILY cap 02/25/20 [Rx] amLODIPine [Norvasc] 2.5 mg PO DAILY tab 02/25/20 [Rx] predniSONE [Deltasone] 10 mg PO DAILY tab 02/25/20 [Rx] Follow up Appointment(s)/Referral(s): Jaswant Gatica MD [STAFF PHYSICIAN] - 2 Weeks Alex Moeller MD [Primary Care Provider] - 1-2 days Activity/Diet/Wound Care/Special Instructions: Activity: [place] Diet: Vital high Protein 50 mL/Hr free water flush 30 mL every 4 hours. Mpewl=459 mL every 4 hours Special Instructions: Yracheostomy tube, 57 Vent setting: Pressure Control 22, PEEP 8, FiO2 50%, set rate [address]ICC in place inserted 01/30/2020 Accucheck q6 hours Restarted on anticoagulation 02/22. Recommend Loevnox 30 daily continue for the next 3-5 days before restarting therapeutic anticoagulation due to Bleeding from trach site. Discharge Disposition: [facility]
[2020-02-25 13:28] LABS: Glucose,Whole Blood 198 mg/dL (75-99)
--- NOTE | 2020-02-25 15:42 | P.PN ---
Progress Note - Text Progress Note Date: 02/25/20 This is a 79-year-old female patient was admitted to the hospital with COVID-19 infection with a pneumonia as well as pulmonary embolism. We consulted to see the patient because of atrial fibrillation. Today February 242019 the patient has been started on Lovenox at prophylaxis level. No more bleeding from around the track daily. The patient possibly is going to be transferred into an extended-care facility. At this point we'll continue the current medical regimen.
[2020-02-25 17:46] LABS: Glucose,Whole Blood 176 mg/dL (75-99)
[2020-02-25 18:03] LABS: Glucose,Whole Blood 155 mg/dL (75-99)
--- NOTE | 2020-02-25 19:46 | P.PN ---
Subjective Progress Note Date: 02/25/20 Principal diagnosis: Bleeding tracheostomy Patient remains in the ICU on the ventilator. Patient was on IV heparin until this morning. Was noted to have some bloody fluid on the drain sponge around the tracheostomy itself. Apparently the blood was almost to the periphery of t he drain sponge. No active bleeding was seen. Since then the drain sponge had been changed and no further bleeding noted. Possible transfer to select specialty tomorrow. Objective - Vital Signs Vital signs: Vital Signs Temp 98.4 F 02/25/20 16:00 Pulse 66 02/25/20 19:00 Resp 28 H 02/25/20 19:00 BP 99/50 02/25/20 19:00 Pulse Ox 92 L 02/25/20 19:00 Intake & Output 02/25/20 02/25/20 02/26/20 06:59 18:59 06:59 Intake Total 1033 1299.5 Output Total 1105 890 Balance -72 409.5 Weight 88.9 kg Intake: IV 303 384 .9 @ KVO 270 360 pressure bags 33 24 Intake, IV Titration 225.5 Amount Heparin Sod,Pork in 0.45% 225.5 NaCl 25,000 unit In 0.45 % NaCl 1 250ml.bag @ 11. 587 UNITS/KG/HR 10 mls/hr IV .Q24H [facility] Rx#: [id number] Tube Feeding 550 600 Other 180 90 Output: Urine 1105 890 Other: Voiding Method Indwelling Catheter Indwelling Catheter ABP, PAP, CO, CI - Last Documented Arterial Blood Pressure 111/40 - Exam HEENT: Tracheostomy in place, incision itself lateral to the tracheostomy well- healed, small amount of loose clot adjacent to the exit site, no active bleeding seen, drain sponge clean without significant drainage noted - Labs CBC & Chem 7: 02/25/20 04:35 02/25/20 04:35 Labs: Abnormal Lab Results - Last 24 Hours (Table) 02/24/20 02/25/20 02/25/20 Range/Units 21:30 00:10 04:35 WBC 10.9 H 13.5 H (3.8-10.6) k/uL RBC 2.77 L 2.90 L (3.80-5.40) m/uL Hgb 8.4 L D 8.9 L (11.4-16.0) gm/dL Hct 27.7 L 28.9 L (34.0-46.0) % MCHC 30.4 L 30.7 L (31.0-37.0) g/dL RDW 16.3 H 16.5 H (11.5-15.5) % Neutrophils # 8.8 H 10.0 H (1.3-7.7) k/uL APTT (22.0-30.0) sec ABG pCO2 (35-45) mmHg ABG pO2 (83-108) mmHg ABG HCO3 (21-25) mmol/L ABG Total CO2 (19-24) mmol/L Carbon Dioxide (22-30) mmol/L BUN (7-17) mg/dL Creatinine (0.52-1.04) mg/dL Glucose (74-99) mg/dL POC Glucose (mg/dL) 127 H (75-99) mg/dL Urine Protein (Negative) Urine Blood (Negative) Ur Leukocyte Esterase (Negative) Urine RBC (0-5) /hpf Urine WBC (0-5) /hpf Urine Bacteria (None) /hpf Urine Mucus (None) /hpf Urine Yeast (Budding) (None) /hpf 02/25/20 02/25/20 02/25/20 Range/Units 04:35 04:58 05:52 WBC (3.8-10.6) k/uL RBC (3.80-5.40) m/uL Hgb (11.4-16.0) gm/dL Hct (34.0-46.0) % MCHC (31.0-37.0) g/dL RDW (11.5-15.5) % Neutrophils # (1.3-7.7) k/uL APTT (22.0-30.0) sec ABG pCO2 61 H (35-45) mmHg ABG pO2 74 L (83-108) mmHg ABG HCO3 37 H (21-25) mmol/L ABG Total CO2 39 H (19-24) mmol/L Carbon Dioxide 38 H (22-30) mmol/L BUN 48 H (7-17) mg/dL Creatinine 0.26 L (0.52-1.04) mg/dL Glucose 128 H (74-99) mg/dL POC Glucose (mg/dL) 150 H (75-99) mg/dL Urine Protein (Negative) Urine Blood (Negative) Ur Leukocyte Esterase (Negative) Urine RBC (0-5) /hpf Urine WBC (0-5) /hpf Urine Bacteria (None) /hpf Urine Mucus (None) /hpf Urine Yeast (Budding) (None) /hpf 02/25/20 02/25/20 02/25/20 Range/Units 07:53 09:24 13:26 WBC (3.8-10.6) k/uL RBC (3.80-5.40) m/uL Hgb (11.4-16.0) gm/dL Hct (34.0-46.0) % MCHC (31.0-37.0) g/dL RDW (11.5-15.5) % Neutrophils # (1.3-7.7) k/uL APTT 48.0 H (22.0-30.0) sec ABG pCO2 (35-45) mmHg ABG pO2 (83-108) mmHg ABG HCO3 (21-25) mmol/L ABG Total CO2 (19-24) mmol/L Carbon Dioxide (22-30) mmol/L BUN (7-17) mg/dL Creatinine (0.52-1.04) mg/dL Glucose (74-99) mg/dL POC Glucose (mg/dL) 198 H (75-99) mg/dL Urine Protein Trace H (Negative) Urine Blood Moderate H (Negative) Ur Leukocyte Esterase Moderate H (Negative) Urine RBC 58 H (0-5) /hpf Urine WBC 35 H (0-5) /hpf Urine Bacteria Rare H (None) /hpf Urine Mucus Rare H (None) /hpf Urine Yeast (Budding) Occasional H (None) /hpf 02/25/20 02/25/20 Range/Units 17:34 18:02 WBC (3.8-10.6) k/uL RBC (3.80-5.40) m/uL Hgb (11.4-16.0) gm/dL Hct (34.0-46.0) % MCHC (31.0-37.0) g/dL RDW (11.5-15.5) % Neutrophils # (1.3-7.7) k/uL APTT (22.0-30.0) sec ABG pCO2 (35-45) mmHg ABG pO2 (83-108) mmHg ABG HCO3 (21-25) mmol/L ABG Total CO2 (19-24) mmol/L Carbon Dioxide (22-30) mmol/L BUN (7-17) mg/dL Creatinine (0.52-1.04) mg/dL Glucose (74-99) mg/dL POC Glucose (mg/dL) 176 H 155 H (75-99) mg/dL Urine Protein (Negative) Urine Blood (Negative) Ur Leukocyte Esterase (Negative) Urine RBC (0-5) /hpf Urine WBC (0-5) /hpf Urine Bacteria (None) /hpf Urine Mucus (None) /hpf Urine Yeast (Budding) (None) /hpf Microbiology - Last 24 Hours (Table) 02/25/20 09:24 Urine Culture - Preliminary Urine,Voided Assessment and Plan (1) Pulmonary embolism Narrative/Plan: Patient's tracheostomy site had bleeding again this morning. Certainly a lot smaller in volume than it was the other day. No active bleeding currently. We'll monitor overnight. If no further bleeding patient may be considered for transfer tomorrow. We'll reevaluate in a.m. Current Visit: Yes Status: Acute Code(s): I26.99 - OTHER PULMONARY EMBOLISM WITHOUT ACUTE COR PULMONALE SNOMED Code(s): 83176078
[2020-02-25 23:55] LABS: Glucose,Whole Blood 130 mg/dL (75-99)
[2020-02-26] MEDS: INSULIN ASPART (NovoLOG) 100 UNIT/ML VIAL SQ SCH ×3 (00:17→12:23)
[2020-02-26] MEDS: ALPRAZolam 0.5 MG TAB PO SCH ×2 (03:13→09:43)
[2020-02-26] MEDS: HYDROcodone/APAP 15 ML SOLUTION PO PRN (04:08)
[2020-02-26 04:30] LABS: Anisocytosis Slight; Basophils % (A) 0 %; Eosinophils # (A) 0.7 k/uL (0-0.7); Eosinophils % (A) 8 %; HCT 27.2 % (34.0-46.0); HGB 8.5 gm/dL (11.4-16.0); Hypochromasia Marked; Lymphocytes # (A) 1.3 k/uL (1.0-4.8); Lymphocytes % (A) 15 %; MCH 31.2 pg (25.0-35.0); MCHC 31.1 g/dL (31.0-37.0); MCV 100.4 fL (80.0-100.0); Macrocytosis Slight; Monocytes # (A) 0.4 k/uL (0-1.0); Monocytes % (A) 4 %; Neutrophils # (A) 6.4 k/uL (1.3-7.7); Neutrophils % (A) 72 %; Platelet Count 164 k/uL (150-450); RBC 2.71 m/uL (3.80-5.40); RDW 16.2 % (11.5-15.5); WBC 8.8 k/uL (3.8-10.6)
[2020-02-26 04:42] LABS: ALT 45 U/L (4-34); AST 22 U/L (14-36); African American GFR (CKD) >90 (>60 ml/min/1.73 sqM); Albumin 2.3 g/dL (3.5-5.0); Alkaline Phosphatase 60 U/L (38-126); Anion Gap -3 mmol/L; Blood Urea Nitrogen 46 mg/dL (7-17); Calcium 8.9 mg/dL (8.4-10.2); Carbon Dioxide 37 mmol/L (22-30); Chloride 106 mmol/L (98-107); Glucose 115 mg/dL (74-99); Non-African American GFR(CKD) >90 (>60 ml/min/1.73 sqM); Potassium 4.2 mmol/L (3.5-5.1); Sodium 140 mmol/L (137-145); Total Bilirubin 0.3 mg/dL (0.2-1.3); Total Protein 4.4 g/dL (6.3-8.2)
[2020-02-26 05:21] LABS: ABG Base Excess 14.1 mmol/L; ABG HCO3 38 mmol/L (21-25); ABG Oxygen Saturation 97.1 % (94-97); ABG PCO2 56 mmHg (35-45); ABG PH 7.44 (7.35-7.45); ABG PO2 71 mmHg (83-108); ABG TCO2 40 mmol/L (19-24); Allen Test Performed? Yes
[2020-02-26 06:13] LABS: Glucose,Whole Blood 141 mg/dL (75-99)
--- NOTE | 2020-02-26 07:17 | P.PN ---
Subjective Progress Note Date: 02/26/20 Principal diagnosis: Paroxysmal atrial fibrillation This is a 79-year-old female patient was admitted to the hospital with COVID-19 infection with a pneumonia as well as pulmonary embolism. We consulted to see the patient because of atrial fibrillation. The patient was seen today February 252019. She has been maintaining normal sinus mechanism. She started bleeding from around the trach tube again and she supposed to receive Lovenox today. I would suggest DC the Lovenox completely. The hemoglobin is stable. She is in process of being transferred into an extended-care facility. Objective - Vital Signs Vital signs: Vital Signs Temp 99.1 F 02/26/20 04:00 Pulse 84 02/26/20 07:00 Resp 19 02/26/20 07:00 BP 141/67 02/26/20 07:00 Pulse Ox 92 L 02/26/20 07:00 Intake & Output 02/25/20 02/26/20 02/26/20 18:59 06:59 18:59 Intake Total 1299.5 1050 80 Output Total 890 1185 250 Balance 409.5 -135 -170 Weight 89.3 kg Intake: IV 384 360 30 .9 @ KVO 360 360 30 pressure bags 24 Intake, IV Titration 225.5 Amount Heparin Sod,Pork in 0.45% 225.5 NaCl 25,000 unit In 0.45 % NaCl 1 250ml.bag @ 11. 587 UNITS/KG/HR 10 mls/hr IV .Q24H [facility] Rx#: [id number] Tube Feeding 600 600 50 Other 90 90 Output: Urine 890 1185 250 Other: Voiding Method Indwelling Catheter Indwelling Catheter # Bowel Movements 1 ABP, PAP, CO, CI - Last Documented Arterial Blood Pressure 111/40 - Labs CBC & Chem 7: 02/26/20 04:01 02/26/20 04:01 Labs: Abnormal Lab Results - Last 24 Hours (Table) 02/25/20 02/25/20 02/25/20 Range/Units 07:53 09:24 13:26 RBC (3.80-5.40) m/uL Hgb (11.4-16.0) gm/dL Hct (34.0-46.0) % MCV (80.0-100.0) fL RDW (11.5-15.5) % APTT 48.0 H (22.0-30.0) sec ABG pCO2 (35-45) mmHg ABG pO2 (83-108) mmHg ABG HCO3 (21-25) mmol/L ABG Total CO2 (19-24) mmol/L ABG O2 Saturation (94-97) % Carbon Dioxide (22-30) mmol/L BUN (7-17) mg/dL Creatinine (0.52-1.04) mg/dL Glucose (74-99) mg/dL POC Glucose (mg/dL) 198 H (75-99) mg/dL ALT (4-34) U/L Total Protein (6.3-8.2) g/dL Albumin (3.5-5.0) g/dL Urine Protein Trace H (Negative) Urine Blood Moderate H (Negative) Ur Leukocyte Esterase Moderate H (Negative) Urine RBC 58 H (0-5) /hpf Urine WBC 35 H (0-5) /hpf Urine Bacteria Rare H (None) /hpf Urine Mucus Rare H (None) /hpf Urine Yeast (Budding) Occasional H (None) /hpf 02/25/20 02/25/20 02/25/20 Range/Units 17:34 18:02 23:54 RBC (3.80-5.40) m/uL Hgb (11.4-16.0) gm/dL Hct (34.0-46.0) % MCV (80.0-100.0) fL RDW (11.5-15.5) % APTT (22.0-30.0) sec ABG pCO2 (35-45) mmHg ABG pO2 (83-108) mmHg ABG HCO3 (21-25) mmol/L ABG Total CO2 (19-24) mmol/L ABG O2 Saturation (94-97) % Carbon Dioxide (22-30) mmol/L BUN (7-17) mg/dL Creatinine (0.52-1.04) mg/dL Glucose (74-99) mg/dL POC Glucose (mg/dL) 176 H 155 H 130 H (75-99) mg/dL ALT (4-34) U/L Total Protein (6.3-8.2) g/dL Albumin (3.5-5.0) g/dL Urine Protein (Negative) Urine Blood (Negative) Ur Leukocyte Esterase (Negative) Urine RBC (0-5) /hpf Urine WBC (0-5) /hpf Urine Bacteria (None) /hpf Urine Mucus (None) /hpf Urine Yeast (Budding) (None) /hpf 02/26/20 02/26/20 02/26/20 Range/Units 04:01 04:01 05:12 RBC 2.71 L (3.80-5.40) m/uL Hgb 8.5 L (11.4-16.0) gm/dL Hct 27.2 L (34.0-46.0) % MCV 100.4 H (80.0-100.0) fL RDW 16.2 H (11.5-15.5) % APTT (22.0-30.0) sec ABG pCO2 56 H (35-45) mmHg ABG pO2 71 L (83-108) mmHg ABG HCO3 38 H (21-25) mmol/L ABG Total CO2 40 H (19-24) mmol/L ABG O2 Saturation 97.1 H (94-97) % Carbon Dioxide 37 H (22-30) mmol/L BUN 46 H (7-17) mg/dL Creatinine 0.25 L (0.52-1.04) mg/dL Glucose 115 H (74-99) mg/dL POC Glucose (mg/dL) (75-99) mg/dL ALT 45 H (4-34) U/L Total Protein 4.4 L (6.3-8.2) g/dL Albumin 2.3 L (3.5-5.0) g/dL Urine Protein (Negative) Urine Blood (Negative) Ur Leukocyte Esterase (Negative) Urine RBC (0-5) /hpf Urine WBC (0-5) /hpf Urine Bacteria (None) /hpf Urine Mucus (None) /hpf Urine Yeast (Budding) (None) /hpf 02/26/20 Range/Units 06:10 RBC (3.80-5.40) m/uL Hgb (11.4-16.0) gm/dL Hct (34.0-46.0) % MCV (80.0-100.0) fL RDW (11.5-15.5) % APTT (22.0-30.0) sec ABG pCO2 (35-45) mmHg ABG pO2 (83-108) mmHg ABG HCO3 (21-25) mmol/L ABG Total CO2 (19-24) mmol/L ABG O2 Saturation (94-97) % Carbon Dioxide (22-30) mmol/L BUN (7-17) mg/dL Creatinine (0.52-1.04) mg/dL Glucose (74-99) mg/dL POC Glucose (mg/dL) 141 H (75-99) mg/dL ALT (4-34) U/L Total Protein (6.3-8.2) g/dL Albumin (3.5-5.0) g/dL Urine Protein (Negative) Urine Blood (Negative) Ur Leukocyte Esterase (Negative) Urine RBC (0-5) /hpf Urine WBC (0-5) /hpf Urine Bacteria (None) /hpf Urine Mucus (None) /hpf Urine Yeast (Budding) (None) /hpf Microbiology - Last 24 Hours (Table) 02/25/20 09:24 Urine Culture - Preliminary Urine,Voided Assessment and Plan Assessment: Assessment #1 COVID-19 infection #2 pneumonia secondary to the above #3 pulmonary embolism #4 paroxysmal atrial fibrillation #5 blood loss anemia Plan #1 continue the current medical regimen #2 suggest to stop the Lovenox #3 transferred to extended care facility
[2020-02-26] MEDS: ALBUTEROL HFA INHALER INHALATION SCH ×2 (07:45→11:01)
[2020-02-26] MEDS ORDERED: ENOXAPARIN 30 MG/0.3 ML SYRINGE SQ SCH (09:00)
[2020-02-26] MEDS: amLODIPine 2.5 MG TAB PO SCH (09:42)
[2020-02-26] MEDS: CHOLECALCIFEROL 1,000 UNIT TAB PO SCH (09:42)
[2020-02-26] MEDS: QUEtiapine 100 MG TAB PO SCH (09:43)
[2020-02-26] MEDS: ASCORBIC ACID 500 MG TAB PO SCH (09:43)
[2020-02-26] MEDS: AMIODARONE 200 MG TAB PO SCH (09:43)
[2020-02-26] MEDS: ZINC SULFATE 220 MG CAP PO SCH (09:43)
[2020-02-26] MEDS: FAMOTIDINE 20 MG TAB PO SCH (09:43)
[2020-02-26] MEDS: predniSONE 20 MG TAB PO SCH (09:43)
[2020-02-26] MEDS: METOPROLOL TARTRATE 25 MG TAB PO SCH (09:43)
[2020-02-26] MEDS: CHLORHEXIDINE GLUCONATE 15 ML CUP MUCOUS MEM SCH (09:49)
[2020-02-26] MEDS: INSULIN DETEMIR (LEVEMIR) 100 UNIT/ML SYR SQ SCH (09:49)
--- NOTE | 2020-02-26 09:53 | XR ---
EXAMINATION TYPE: XR chest 1V portable DATE OF EXAM: 02/26/2020 COMPARISON: 02/25/2020 INDICATION: ICU management TECHNIQUE: Single frontal view of the chest is obtained. FINDINGS: The heart size is normal. The pulmonary vasculature is prominent. Diffuse scattered increased infiltrates stable. PICC line enters on the right with the tip in the superior vena cava region. Tracheostomy tube remain s in the midline. IMPRESSION: 1. Stable diffuse extensive bilateral lung infiltrates
[2020-02-26 10:04] VITALS: RESP 26
[2020-02-26 10:05] VITALS: TEMP 98.6
[2020-02-26 10:18] VITALS: BMI 33.7
--- NOTE | 2020-02-26 10:32 | P.PN ---
Progress Note - Text Progress Note Date: 02/26/20 Patient had no evidence of bleeding overnight. Anticoagulation is currently on hold. Hemoglobin stable at 8.5. Tracheostomy inspected. Small clot less than 1 cm noted this was removed without active bleeding noted. Stable for transfer from my point of view at this point since no bleeding seen over the last 12-24 hours.
--- NOTE | 2020-02-26 10:41 | P.DS ---
Providers Date of admission: 01/09/20 12:10 Expected date of discharge: 02/26/20 Attending physician: Alysas Main DO Consults: 01/09/20 18:03 Consult Physician Routine Consulting Provider: Win Champion Consult Reason/Comments: covid Do you want consulting provider notified?: Yes 01/10/20 12:19 Consult Physician Routine Consulting Provider: Edward Jones Consult Reason/Comments: New onset atrial fibrillation Do you want consulting provider notified?: Yes 01/17/20 11:05 Consult Physician Routine Consulting Provider: Romero Rossi Consult Reason/Comments: Low urine output, KALYAN Do you want consulting provider notified?: Already Contacted 01/19/20 07:39 Consult Physician Routine Consulting Provider: John Hughes Consult Reason/Comments: a fib Do you want consulting provider notified?: Already Contacted 01/30/20 12:16 Consult Physician Routine Consulting Provider: Rory Gomez Consult Reason/Comments: trach and peg Do you want consulting provider notified?: Already Contacted 02/22/20 05:49 Consult Physician Routine Consulting Provider: Jaswant Gatica Consult Reason/Comments: afib rvr Do you want consulting provider notified?: Yes, Notify in am Primary care physician: Alex Moeller MD Hospital Course: Discharge Diagnosis: Covid 19 pneumonia with acute hypoxic respiratory failure, ARDS - Completed Remdesivir on 01/15 - s/p Dexamethasone day #17 days completed - Status post convalescent plasma 01/14 Trach bleeding recurrent on 02/22 - heparin gtt started on 02/23 and she had some bleeding requiring 2 units pRBC which stopped off heparin gtt. On 02/24 she had some oozing from the trach which resolved without significant intervention. She was seen by surgery who recommended hold anticoagulation. I would hold anticoagulation for 5 days to ensure stability of clot. Then she will need treatment resumed for her pulmonary embolism. HgB stable between 02/24-02/25. Anemia, due to acute blood loss - 3 units pRBC. Last on 02/23 Anxiety Pulmonary embolus without right ventricular strain, history of prior DVT P. A fib with RVR Entercoccus and E coli UTI, s/p treatment Thrombocytopenia, resolved KALYAN due to ATN with resultant metabolic acidosis and hyperphosphatemia, resolved Septic shock, resolved Hypokalemia, resolved Diffuse Anasarca, improving Leukocytosis, likely due to steroids and stress from bleeding trach site, resolved Hospital Course: Patient is a 79-year-old female history of DVT who presented to the emergency department with complaints of shortness of breath. She initially had a DVT and stopped her Xarelto as she was concerned about an interaction with the azithromycin she had been prescribed due to COVID 19. In the ER she underwent an extensive evaluation. She was found have a pulmonary embolism was started on a heparin drip, she was found have Covid 19 pneumonia and was started on steroids, zinc, vitamin C, and melatonin. Pulmonary was consulted. She was admitted to the selective care unit. She was found to be in atrial fibrillation which was new onset. Cardiology was consulted. She was started on low-dose metoprolol. On the evening of 01/09 she went and A. fib with RVR was started on Cardizem drip. On the morning of 01/10 she was seen by cardiology Cardizem drip was discontinued and she was started on metoprolol 25 mg twice a day. Her oxygen requirements were increasing throughout her hospital stay. Case had been discussed with vascular who felt she was not a candidate for catheter directed TPA/EKOS. On 01/11 she was seen by pulmonary and started on Remedesivir. She was transferred to the ICU overnight on 01/11 due to progressive hypoxemia. She required aerosol as well as a nonrebreather. By the morning of 01/14 she had received 2 units of convalescent plasma. On the morning of 01/15 she was requiring BiPAP. She had a triple-lumen catheter placed. She failed BiPAP therapy and was subsequently intubated overnight on 01/15. After intubation she again went into A. fib with RVR and required a Cardizem drip for a short time but then converted to normal sinus rhythm. She did require levothyroxine sec ondary to hypotension. She again went into A. fib with RVR on 01/17 and secondary to her hypotension she was started on amiodarone. Levophed weaned off by 01/18 and she was able to be switched to oral amiodarone. During her ICU stay her heparin drip was transitioned to Lovenox subcutaneous. She still has not been able to wean from the ventilator. PEEP decreased 01/21. She has following commands but very weak on 01/22. On 01/23 her sedation was stopped and she did become agitated requiring resedation. Her HgB dropped for unknown reason on 01/24 and was felt to maybe be due to leaking from her around her subclavian cath. She was given 1 unit pRBC. Attempted to wean sedation but she became agitated. On 01/26 required increasing sedation and was placed back on levophed. She has had a prolonged hospital course. PEg and trach on 02/03. She remain mechanically ventilated and has been unable to wean and quickly develops tachypena and tachycardia. Medication adjustments are being made. Heart rate control has been difficult, currently off metoprolol due to labile BP but did required cardizem gtt for HR control on 02/19. Started on scheduled xanax and prn norco and able to be weaned off propofol. Trach bleeding on 02/20 and lovenox held X 1, toradol discontinued and this resolved. 02/22 recurrent trach bleeding, lovenox stopped, surgery contacted no additional intervention, 02/23 PEEP decreased and trial of anticoagulation with heparin gtt as patient will require anticoagulation due to Pulmonary embolism. Patient seen and examined at bedside. Awake, appears comfortable. Vital signs reviewed and stable. General: Ill-appearing, no distress, appears at stated age Derm: warm, dry, Head: atraumatic, normocephalic, symmetric Eyes: EOMI, no lid lag, anicteric sclera Mouth: no lip lesion, mucus membranes dry Cardiovascular: S1S2 reg, no murmur, positive posterior tibial pulse bilateral, Lungs: Coarse breath sounds bilateral, no rhonchi, no rales, no accessory muscle use, on vent, Trach in place Abdominal: soft, nontender to palpation, no guarding, no appreciable organomegaly Ext:+ gross muscle atrophy, diffuse anasarca, no contractures Neuro: No gross muscle atrophy, no tremors noted Psych: eyes open, nod no to pain A total of 45 minutes of time were spent preparing this complex discharge summary . Patient Condition at Discharge: Stable Plan - Discharge Summary Discharge Rx Participant: No New Discharge Prescriptions: New Amiodarone [Cordarone] 200 mg PO DAILY tab predniSONE [Deltasone] 10 mg PO DAILY tab Insulin Detemir (Levemir) [Levemir] 10 unit SQ BID syr Metoprolol Tartrate [Lopressor] 25 mg PO BID tab Enoxaparin [Lovenox] 30 mg SQ DAILY syringe HYDROcodone/APAP [Collins Elixir 7.5-325Mg/15Ml] 15 ml PO Q6H PRN ml PRN Reason: Pain amLODIPine [Norvasc] 2.5 mg PO DAILY tab INSULIN ASPART (NovoLOG) [NovoLOG (formulary)] 0 unit SQ Q6H vial Zinc Sulfate [Orazinc] 220 mg PO DAILY cap Famotidine [Pepcid] 20 mg PO DAILY tab Chlorhexidine Gluconate [Peridex] 15 ml MUCOUS MEM BID ml QUEtiapine [SEROquel] 100 mg PO TID tab Acetaminophen Tab [Tylenol] 650 mg PO Q6HR PRN tab PRN Reason: Fever And/ Or Pain Albuterol Inhaler [Ventolin Hfa Inhaler] 2 puff INHALATION RT-QID puff Ascorbic Acid [Vitamin C] 1,000 mg PO DAILY #0 tab Cholecalciferol [Vitamin D3 (25 Mcg = 1000 Iu)] 1,000 unit PO DAILY tab ALPRAZolam [Xanax] 0.5 mg PO Q6H tab Discontinued Rivaroxaban [Xarelto] 20 mg PO DAILY amLODIPine [Norvasc] 5 mg PO DAILY Discharge Medication List ALPRAZolam [Xanax] 0.5 mg PO Q6H tab 02/25/20 [Rx] Acetaminophen Tab [Tylenol] 650 mg PO Q6HR PRN tab 02/25/20 [Rx] Albuterol Inhaler [Ventolin Hfa Inhaler] 2 puff INHALATION RT-QID puff 02/25/20 [Rx] Amiodarone [Cordarone] 200 mg PO DAILY tab 02/25/20 [Rx] Ascorbic Acid [Vitamin C] 1,000 mg PO DAILY #0 tab 02/25/20 [Rx] Chlorhexidine Gluconate [Peridex] 15 ml MUCOUS MEM BID ml 02/25/20 [Rx] Cholecalciferol [Vitamin D3 (25 Mcg = 1000 Iu)] 1,000 unit PO DAILY tab 02/25/20 [Rx] Enoxaparin [Lovenox] 30 mg SQ DAILY syringe 02/25/20 [Rx] Famotidine [Pepcid] 20 mg PO DAILY tab 02/25/20 [Rx] HYDROcodone/APAP [Collins Elixir 7.5-325Mg/15Ml] 15 ml PO Q6H PRN ml 02/25/20 [Rx] INSULIN ASPART (NovoLOG) [NovoLOG (formulary)] 0 unit SQ Q6H vial 02/25/20 [Rx] Insulin Detemir (Levemir) [Levemir] 10 unit SQ BID syr 02/25/20 [Rx] Metoprolol Tartrate [Lopressor] 25 mg PO BID tab 02/25/20 [Rx] QUEtiapine [SEROquel] 100 mg PO TID tab 02/25/20 [Rx] Zinc Sulfate [Orazinc] 220 mg PO DAILY cap 02/25/20 [Rx] amLODIPine [Norvasc] 2.5 mg PO DAILY tab 02/25/20 [Rx] predniSONE [Deltasone] 10 mg PO DAILY tab 02/25/20 [Rx] Follow up Appointment(s)/Referral(s): Jaswant Gatica MD [STAFF PHYSICIAN] - 2 Weeks Alex Moeller MD [Primary Care Provider] - 1-2 days Activity/Diet/Wound Care/Special Instructions: Activity: [place] Diet: Vital high Protein 50 mL/Hr free water flush 30 mL every 4 hours. Glqpl=250 mL every 4 hours Special Instructions: Yracheostomy tube, 57 Vent setting: Pressure Control 22, PEEP 8, FiO2 50%, set rate [address] PICC in place inserted 01/30/2020 Accucheck q6 hours Restarted on anticoagulation 02/22. Recommend Loevnox 30 daily continue for the next 3-5 days before restarting therapeutic anticoagulation due to Bleeding from trach site. Discharge Disposition: [facility]
--- NOTE | 2020-02-26 10:52 | PN ---
PROGRESS NOTE PULMONARY/CRITICAL CARE PROGRESS NOTE: DATE OF SERVICE: February 26, 2020. Critical care time greater than 30 minutes. This is a 79-year-old female who was admitted way back on January 08. She came into the hospital with COVID-19 pneumonia and acute hypoxemic respiratory failure. She was also diagnosed with pulmonary embolism at that time. She was intubated unfortunately for worsening respiratory failure on January 15. She did not progress on the mechanical ventilator and for that reason, on February 03, underwent a tracheostomy and PEG tube placement by Dr. Gomez. The patient is a DNR. There was hope that we might be able to get her to a long-term acute care facility today. She has been weaned off all sedative. We added some Xanax to her regimen which did seem to help. Yesterday, the nurse was concerned because she was having some oozing of blood from around the trach site. She was seen by Dr. Hunt. He did not think it was anything of any major concern. Currently, the patient remains on the pressure assist-control modality, inspiratory pressure is 22 cm of water, inspiratory time is 0.8 seconds, respiratory rate 26, FiO2 of 50%, PEEP of 8. On those settings, the PO2 was 71, pCO2 of 56, and a pH of 7.44. The patient is receiving saline at 30 mL an hour, and Vital high-protein at goal which is 50 mL an hour. The patient is planning to be transferred to [facility] possibly today. PHYSICAL EXAMINATION: VITAL SIGNS: Current vital signs are reviewed. Temperature is 99.1, heart rate 84, respiratory rate 19, blood pressure 141/67, mean 91, saturations are 92%. Appears in no acute distress. HEENT: Examination is grossly unremarkable. NECK: Supple. Full range of motion. There is a midline tracheostomy. No adenopathy or thyromegaly. Neck veins are flat. CARDIOVASCULAR: Examination reveals regular rhythm and rate. Heart rate 84 beats per minute. S1, S2 normal. LUNGS: Reveal diffuse coarse rhonchi. Some crackles bilaterally. Breath sounds equal. ABDOMEN: Soft. Bowel sounds are heard. EXTREMITIES: Intact. There is edema. No cyanosis or clubbing. SKIN: Without rash. There are multiple areas of ecchymoses. NEUROLOGIC: Examination reveals diffuse muscle weakness. LAB DATA: Reviewed. White count 8.8, hemoglobin 8.5, hematocrit 27.2, platelet count 164,000, blood gases have been noted. Sodium 140, potassium 4.2, chloride 106, CO2 37, BUN and creatinine were 46 and 0.25. The rest of the labs look good. Microbiology was positive way back on January 16 for E coli and Enterococcus faecalis in the urine. IMAGING: The most recent chest x-ray done was today. It shows diffuse bilateral infiltrates, more right-sided than left-sided. There is a midline tracheostomy. MEDICATIONS: Reviewed. The patient is on Tylenol, albuterol inhaler, Xanax, Cordarone, amlodipine, vitamin C, Peridex, vitamin D3, Lovenox, famotidine, [place] elixir, insulin, magnesium replacement, metoprolol, Narcan, potassium replacement, prednisone, Seroquel, and zinc. ASSESSMENT: 1. Acute hypoxemic respiratory failure secondary to acute COVID-19 pneumonia/pneumonitis, with subsequent development of acute respiratory distress syndrome (ARDS), and failure to wean from mechanical ventilation. The patient was initially intubated on January 16, 2020. 2. Status post tracheostomy and PEG tube placement, February 04, [address] Gomez, for failure to wean from mechanical ventilation. 3. Acute right-sided pulmonary embolism, likely secondary to hypercoagulable state, which was induced by the COVID-19 infection. 4. Recurrent episodes of atrial fibrillation. 5. Remote history of deep venous thrombosis. 6. Acute kidney injury. 7. Hypocoagulable state. 8. Toxic/metabolic encephalopathy. 9. Chronic anemia. 10.Failure to wean from mechanical ventilation. PLAN: The patient may be discharged to a long-term acute care facility today. We are thinking that it may be [facility]. She is not having any further oozing or bleeding from the trach site. It was checked out by the surgeon yesterday. Currently, her vent settings are stable. She has a good set of blood gases. PO2 71, pCO2 of 56, pH 7.44. She is only on saline at 30 mL an hour and Vital high-protein at goal. Xanax has helped tremendously with her chronic anxiety. We will continue to follow. Critical care time greater than 30 minutes. MMODL / IJN: [id number] /
[2020-02-26 11:42] VITALS: BP 97/49; PULSE 68
[2020-02-26 11:55] LABS: Glucose,Whole Blood 181 mg/dL (75-99)
--- NOTE | 2020-03-01 10:57 | CDI ---
Documentation Clarification Form Date: 03/01/2020 10:23:00 AM From: Nemo Keita Phone: If you have a question about this query, please contact [facility] at [phone] between 8am and 5pm. Admit Date: 01/09/2020 12:10:00 PM Patient Name: Paola Johnson Visit Number: [id number] Discharge Date: 02/26/2020 01:50:00 PM ATTENTION: The Clinical Documentation Specialists (CDI) and [facility] Coding Staff appreciate your assistance in clarifying documentation. Please respond to the clarification below the line at the bottom and electronically sign. The CDI & [facility] Coding staff will review the response and follow-up if needed. Please note: Queries are made part of the Legal Health Record. If you have any questions, please contact the author of this message via ITS. Dr. Alyssa Main Per documentation patient had an E coli/ Enterococcus (per 01/16 microbiology) UTI due to indwelling catheter (per CDI query). Please clarify if the UTI was present on admission. History/Risk Factors: Covid pneumonia ARDS, indwelling catheter, positive microbiology Treatment: Cefepime, Unasyn Levaquin Definition of Present on Admission (POA): A diagnosis present at the time the order for admission to inpatient status was written. For each diagnosis, documentation must be clear to determine if the condition was present at the time of the patients inpatient admission or developed during the hospital stay. Please clarify if UTI was POA: ____Y = Yes, the condition was present at the time of the order for inpatient admission. ____N = No, the condition was not present at the time of the order for inpatient admission. ____W = Clinically undetermined if the condition was present at the time of the order for inpatient admission. No, the condition was not present at the time of the order for inpatient admission. MTDD
== END 2020-02-26 13:50 | disposition still patient (30) | DRG 4 ==
LOC: EC 08:28 → 3SCARD 12:10 → 2SICU 01-13 03:44
PROVIDERS: ADMIT Internal Medicine; ATTEND Internal Medicine
PROC: XW033E5 Introduction of Remdesivir Anti-infective into Peripheral Vein, Percutaneous Approach, New Technology Group 5 (ICD-10-PCS; 2020-01-14)
PROC: XW13325 Transfusion of Convalescent Plasma (Nonautologous) into Peripheral Vein, Percutaneous Approach, New Technology Group 5 (ICD-10-PCS; 2020-01-14)
PROC: 0BH17EZ Insertion of Endotracheal Airway into Trachea, Via Natural or Artificial Opening (ICD-10-PCS; 2020-01-16)
PROC: 5A1955Z Respiratory Ventilation, Greater than 96 Consecutive Hours (ICD-10-PCS; 2020-01-16)
PROC: 3E033XZ Introduction of Vasopressor into Peripheral Vein, Percutaneous Approach (ICD-10-PCS; 2020-01-16)
PROC: 5A09357 Assistance with Respiratory Ventilation, Less than 24 Consecutive Hours, Continuous Positive Airway Pressure (ICD-10-PCS; 2020-01-16)
PROC: 4A133B1 Monitoring of Arterial Pressure, Peripheral, Percutaneous Approach (ICD-10-PCS; 2020-01-16)
PROC: 4A133J1 Monitoring of Arterial Pulse, Peripheral, Percutaneous Approach (ICD-10-PCS; 2020-01-16)
PROC: 03HY32Z Insertion of Monitoring Device into Upper Artery, Percutaneous Approach (ICD-10-PCS; 2020-01-16)
PROC: 05H533Z Insertion of Infusion Device into Right Subclavian Vein, Percutaneous Approach (ICD-10-PCS; 2020-01-16)
PROC: 30233N1 Transfusion of Nonautologous Red Blood Cells into Peripheral Vein, Percutaneous Approach (ICD-10-PCS; 2020-01-25)
PROC: 05HF33Z Insertion of Infusion Device into Left Cephalic Vein, Percutaneous Approach (ICD-10-PCS; 2020-01-26)
PROC: 02HV33Z Insertion of Infusion Device into Superior Vena Cava, Percutaneous Approach (ICD-10-PCS; 2020-01-30)
PROC: 0B110F4 Bypass Trachea to Cutaneous with Tracheostomy Device, Open Approach (ICD-10-PCS; principal; 2020-02-04 10:15)
PROC: 0DH63UZ Insertion of Feeding Device into Stomach, Percutaneous Approach (ICD-10-PCS; principal; 2020-02-04 10:15)
PROC: 3E0G76Z Introduction of Nutritional Substance into Upper GI, Via Natural or Artificial Opening (ICD-10-PCS; principal; 2020-02-04 10:15)
DX: A41.89 Other specified sepsis (principal); T83.518A Infection and inflammatory reaction due to other urinary catheter, initial encounter; N39.0 Urinary tract infection, site not specified; U07.1 COVID-19; J80 Acute respiratory distress syndrome; E43 Unspecified severe protein-calorie malnutrition; G92 Toxic encephalopathy; I26.99 Other pulmonary embolism without acute cor pulmonale; J12.89 Other viral pneumonia; N17.0 Acute kidney failure with tubular necrosis; R65.21 Severe sepsis with septic shock; D68.59 Other primary thrombophilia; D62 Acute posthemorrhagic anemia; E87.0 Hyperosmolality and hypernatremia; E87.1 Hypo-osmolality and hyponatremia; E87.4 Mixed disorder of acid-base balance; J95.01 Hemorrhage from tracheostomy stoma; T82.838A Hemorrhage due to vascular prosthetic devices, implants and grafts, initial encounter; D68.8 Other specified coagulation defects; Z66 Do not resuscitate; Z51.5 Encounter for palliative care; E83.39 Other disorders of phosphorus metabolism; T38.0X5A Adverse effect of glucocorticoids and synthetic analogues, initial encounter; D72.829 Elevated white blood cell count, unspecified; I95.9 Hypotension, unspecified; Z53.9 Procedure and treatment not carried out, unspecified reason; B95.2 Enterococcus as the cause of diseases classified elsewhere; B96.20 Unspecified Escherichia coli [E. coli] as the cause of diseases classified elsewhere; Z68.33 Body mass index [BMI] 33.0-33.9, adult; E87.6 Hypokalemia; F41.9 Anxiety disorder, unspecified; I10 Essential (primary) hypertension; I48.0 Paroxysmal atrial fibrillation; I49.3 Ventricular premature depolarization; Z79.01 Long term (current) use of anticoagulants; Z79.899 Other long term (current) drug therapy; Z82.49 Family history of ischemic heart disease and other diseases of the circulatory system; Z86.718 Personal history of other venous thrombosis and embolism; Z88.8 Allergy status to other drugs, medicaments and biological substances; D69.59 Other secondary thrombocytopenia; Z86.711 Personal history of pulmonary embolism
CPT/HCPCS: 36410; 36415; 36573; 36600; 43246; 70450; 71045; 71275; 76937; 80048; 80053; 81001; 81003; 82533; 82550; 82553; 82728; 82805; 83036; 83605; 83615; 83625; 83735; 83880; 84100; 84132; 84145; 84443; 84478; 84484; 85025; 85027; 85379; 85384; 85610; 85730; 86140; 86850; 86870; 86880; 86900; 86901; 86902; 86920; 87040; 87070; 87077; 87086; 87186; 87205; 87324; 87635; 93005; 93306; 94002; 94003; 94640; 94660; 96365; 99285